=== PATIENT | female | born 1960 | race Caucasian/White ===

== ENCOUNTER 2016-10-31 19:55 | Inpatient (IN) | payer OTHER ==
[~2016-10-31] VITALS: Ht 157.5 cm; Wt 77.5 kg
[2016-10-31] MEDS ORDERED: morphine 4 MG/ML VIAL IV STA (21:32)
[2016-10-31] MEDS ORDERED: ONDANSETRON 4 MG INJ IV STA (21:32)
[2016-10-31 22:14] LABS: ADD SCAN DIFF NO
[2016-10-31 22:17] LABS: BASOPHIL # 0.1 10^3/ul (0.0-0.1); BASOPHILS % 0.6 % (0.0-2.0); EOSINOPHILS # 0.1 10^3/ul (0.0-0.5); EOSINOPHILS % 0.9 % (0.0-7.0); HEMATOCRIT 35.2 % (37.0-47.0); LYMPHOCYTES # 2.4 10^3/ul (0.8-2.9); LYMPHOCYTES % 23.9 % (15.0-51.0); MEAN CORPUSCULAR HEMOGLOBIN 27.3 pg (29.0-33.0); MEAN CORPUSCULAR HGB CONC 31.3 g/dl (32.0-37.0); MEAN CORPUSCULAR VOLUME 87.3 fl (82.0-101.0); MEAN PLATELET VOLUME 8.9 fl (7.4-10.4); MONOCYTE # 0.9 10^3/ul (0.3-0.9); MONOCYTES % 8.7 % (0.0-11.0); NEUTROPHIL # 6.6 10^3/ul (1.6-7.5); NEUTROPHILS % 65.6 % (39.0-77.0); PLATELET COUNT 413 10^3/UL (140-415); RED BLOOD COUNT 4.03 10^6/ul (4.20-5.40); RED CELL DISTRIBUTION WIDTH 15.2 % (11.5-14.5)
[2016-10-31 22:26] LABS: INR 1.06; PROTIME 13.8 Sec (12.2-14.2); PT RATIO 1.1
[2016-10-31 22:29] LABS: ALBUMIN 3.5 g/dl (3.3-4.9)
[2016-10-31 22:30] LABS: POTASSIUM 4.6 mmol/L (3.5-5.1)
[2016-10-31 22:32] LABS: ALBUMIN/GLOBULIN RATIO 0.81; BILIRUBIN,INDIRECT 0.2 mg/dl (0-1.1); BILIRUBIN,TOTAL 0.2 mg/dl (0.2-1.3); CREATININE 1.36 mg/dl (0.44-1.00); TOTAL PROTEIN 7.8 g/dl (6.1-8.1)
[2016-10-31 22:33] LABS: CALCIUM 8.9 mg/dl (8.4-10.2)
[2016-10-31] MEDS ORDERED: SPIR100T PO (22:35)
[2016-10-31] MEDS ORDERED: ATEN50TA PO (22:36)
[2016-10-31] MEDS ORDERED: HYDR12.58 PO (22:36)
[2016-10-31] MEDS ORDERED: FURO40TA4 PO (22:37)
--- NOTE | 2016-10-31 22:45 | RADRPT ---
PROCEDURE: CT abdomen and pelvis without contrast. CLINICAL INDICATION: Abdominal pain. Ascites and liver failure TECHNIQUE: CT scan of the abdomen and pelvis without contrast was performed. Sagittal and coronal reformatted images were obtained from the axial source images. CTDI = 18.93 mGy; DLP = 1068.57 mGy- cm COMPARISON: None available. FINDINGS: Visualized lower thorax: Mild bibasilar subsegmental atelectasis. Small right pleural effusion, th e left pleural space shows only trace effusion. Liver, gallbladder, pancreas and spleen: Slightly nodular contour to the liver unable to exclude ci rrhosis with normal liver size and attenuation There is no evidence for a liver mass or ductal dila tation. Findings are compatible with prior cholecystectomy. No common bile duct abnormality is dem onstrated. The pancreas is unremarkable. The spleen is normal in size. Adrenal glands and genitourinary system: The adrenal glands are normal bilaterally. The kidneys are normal and size, contour and attenuation with no evidence for masses, calculi or hydronephrosis. T he ureters are unremarkable. The urinary bladder is contracted and difficult to evaluate. The uteru s and adnexa show no abnormalities. Gastrointestinal system: The stomach is normal in caliber with no abnormality of significance. The small bowel is normal in caliber with no ileus, obstruction or wall thickening. The appendix is not visualized. The colon shows no evidence for wall thickening or acute abnormality. There is no jayne dence for colitis or diverticulitis. Peritoneum, retroperitoneum, lymph nodes and vessels: The abdominal aorta is normal in caliber. The re is moderate aortic and iliac system atherosclerotic calcification. The inferior vena cava is unr emarkable. There is no evidence for adenopathy or mass. A massive amount of abdominal and pelvic a scites is present including ascites extending through the umbilical hernia, the size of the hernia e stimated at 4 cm. There is no evidence of pneumoperitoneum. Osseous structures and musculoskeletal findings: There is no fracture, lytic or blastic lesion. Deg enerative disk disease at L4-5 and L5-S1 is present. No muscular abnormality or soft tissue patholo gy is present. RPTAT:HJJR IMPRESSION: 1. Massive amount of ascites. 2. Ascites extends into a 4 cm umbilical hernia. 3. Slightly nodular contour to the liver suggests cirrhosis. 4. Changes of prior cholecystectomy. 5. Small right and trace left pleural effusions. 6. Aortic atherosclerosis is present. Al Reina Physician Date Time Electronically viewed and signed by Al Reina, Physician on 10/31/2016 22:45 JR/
--- NOTE | 2016-10-31 23:31 | ERA ---
ER Documentation Chief Complaint Date/Time DATE: 10/31/16 TIME: 23:29 Chief Complaint abd pain and nausea, pt has ascites HPI This is a patient who comes in for ascites. Patient is "due for drainage" per family. Has had not had a drainage for a while. No fevers no chills no other current complaints. ROS All systems reviewed and are negative except as per history of present illness. Medications Home Meds Reported Medications Furosemide* (Furosemide*) 40 Mg Tablet, 80 MG PO DAILY, TAB 10/31/16 Hydrochlorothiazide* (Hydrochlorothiazide*) 12.5 Mg Tablet, 12.5 MG PO DAILY, # 30 TAB 10/31/16 Atenolol* (Atenolol*) 50 Mg Tablet, 50 MG PO DAILY, #30 TAB 10/31/16 Spironolactone* (Aldactone*) 100 Mg Tablet, 100 MG PO DAILY, #30 TAB 10/31/16 Allergies Allergies: Coded Allergies: No Known Allergy (Unverified , 10/31/16) PMhx/Soc Hx Cardiac Disorders: Yes (hypertension) Hx Miscellaneous Medical Probl: Yes (liver failure since 08/2016, umbilical hernia) Hx Alcohol Use: No Hx Substance Use: No Hx Tobacco Use: No Smoking Status: Never smoker Physical Exam Vitals Vital Signs Date Time Temp Pulse Resp B/P Pulse Ox O2 Delivery O2 Flow Rate FiO2 10/31/16 22:11 75 20 104/67 98 10/31/16 19:59 98.3 88 16 122/81 99 Physical Exam Const: [] Head: Atraumatic Eyes: Normal Conjunctiva ENT: Normal External Ears, Nose and Mouth. Neck: Full range of motion..~ No meningismus. Resp: Clear to auscultation bilaterally Cardio: Regular rate and rhythm, no murmurs Abd: Soft, non tender, non distended. Normal bowel sounds Skin: No petechiae or rashes Back: No midline or flank tenderness Ext: No cyanosis, or edema Neur: Awake and alert Psych: Normal Mood and Affect Result Diagram: 10/31/16220410/31/162204 Results 24 hrs Laboratory Tests Test 10/31/16 22:05 White Blood Count 10.010^3/ul Red Blood Count 4.0310^6/ul Hemoglobin 11.0g/dl Hematocrit 35.2% Mean Corpuscular Volume 87.3fl Mean Corpuscular Hemoglobin 27.3pg Mean Corpuscular Hemoglobin Concent 31.3g/dl Red Cell Distribution Width 15.2% Platelet Count 91455^3/UL Mean Platelet Volume 8.9fl Neutrophils % 65.6% Lymphocytes % 23.9% Monocytes % 8.7% Eosinophils % 0.9% Basophils % 0.6% Nucleated Red Blood Cells % 0.0/100WBC Neutrophils # 6.610^3/ul Lymphocytes # 2.410^3/ul Monocytes # 0.910^3/ul Eosinophils # 0.110^3/ul Basophils # 0.110^3/ul Nucleated Red Blood Cells # 0.010^3/ul Prothrombin Time 13.8Sec Prothrombin Time Ratio 1.1 INR International Normalized Ratio 1.06 Activated Partial Thromboplast Time 27.0Sec Sodium Level 134mmol/L Potassium Level 4.6mmol/L Chloride Level 97mmol/L Carbon Dioxide Level 25mmol/L Anion Gap 17 Blood Urea Nitrogen 30mg/dl Creatinine 1.36mg/dl Glucose Level 105mg/dl Calcium Level 8.9mg/dl Total Bilirubin 0.2mg/dl Direct Bilirubin 0.00mg/dl Indirect Bilirubin 0.2mg/dl Aspartate Amino Transf (AST/SGOT) 24IU/L Alanine Aminotransferase (ALT/SGPT) 17IU/L Alkaline Phosphatase 72IU/L Total Protein 7.8g/dl Albumin 3.5g/dl Globulin 4.30g/dl Albumin/Globulin Ratio 0.81 Lipase 189U/L Current Medications Medications (Trade) Dose Ordered Sig/Daryn Route PRN Reason Start Time Stop Time Status Last Admin Dose Admin Morphine Sulfate (morphine) 4 mg ONCE STAT IV 10/31/16 21:32 10/31/16 21:33 DC Ondansetron HCl (Zofran Inj) 4 mg ONCE STAT IV 10/31/16 21:32 10/31/16 21:33 DC 10/31/16 22:00 Procedures/MDM Medical decision-making: This very pleasant patient comes in essentially for tense ascites. Patient will be admitted to hospitalist. Departure Diagnosis: Primary Impression: Ascites Qualified Code: R18.8 - Other ascites MARIANN ROBLES Oct 31, 2016 23:31
[2016-11-01] VITALS (11 sets, daily range): BP systolic 82–141; BP diastolic 52–69; PULSE 65–75; RESP 18–20; Ht 157.5 cm; Wt 77.5 kg
[2016-11-01] MEDS ORDERED: ONDANSETRON 4 MG INJ IV PRN (02:30)
[2016-11-01 05:23] LABS: ADD SCAN DIFF NO
[2016-11-01] MEDS: HYDROCODONE/APAP (5/325) TAB PO PRN ×2 (05:26→21:14)
[2016-11-01 05:29] LABS: BASOPHIL # 0.1 10^3/ul (0.0-0.1); BASOPHILS % 0.7 % (0.0-2.0); EOSINOPHILS # 0.2 10^3/ul (0.0-0.5); EOSINOPHILS % 1.9 % (0.0-7.0); HEMATOCRIT 32.7 % (37.0-47.0); HEMOGLOBIN 10.2 g/dl (12.0-16.0); LYMPHOCYTES # 2.4 10^3/ul (0.8-2.9); LYMPHOCYTES % 29.8 % (15.0-51.0); MEAN CORPUSCULAR HEMOGLOBIN 27.5 pg (29.0-33.0); MEAN CORPUSCULAR HGB CONC 31.2 g/dl (32.0-37.0); MEAN CORPUSCULAR VOLUME 88.1 fl (82.0-101.0); MEAN PLATELET VOLUME 9.7 fl (7.4-10.4); MONOCYTE # 0.9 10^3/ul (0.3-0.9); MONOCYTES % 10.5 % (0.0-11.0); NEUTROPHIL # 4.6 10^3/ul (1.6-7.5); NEUTROPHILS % 56.7 % (39.0-77.0); PLATELET COUNT 297 10^3/UL (140-415); RED BLOOD COUNT 3.71 10^6/ul (4.20-5.40); RED CELL DISTRIBUTION WIDTH 15.1 % (11.5-14.5); WHITE BLOOD COUNT 8.1 10^3/ul (4.8-10.8)
[2016-11-01] MEDS: FUROSEMIDE 20 MG INJ IV SCH (05:33)
[2016-11-01 05:39] LABS: ALBUMIN 3.1 g/dl (3.3-4.9); POTASSIUM 4.5 mmol/L (3.5-5.1)
[2016-11-01 05:41] LABS: CREATININE 1.13 mg/dl (0.44-1.00)
[2016-11-01 05:42] LABS: ALBUMIN/GLOBULIN RATIO 0.68; BILIRUBIN,INDIRECT 0.3 mg/dl (0-1.1); BILIRUBIN,TOTAL 0.3 mg/dl (0.2-1.3); CALCIUM 8.5 mg/dl (8.4-10.2); TOTAL PROTEIN 7.6 g/dl (6.1-8.1)
[2016-11-01 05:43] LABS: CHOL/HDL RATIO 4.6 RATIO
[2016-11-01] MEDS: ALBUMIN HUMAN 25% 100 ML IV SCH ×2 (08:25→16:30)
--- NOTE | 2016-11-01 08:41 | HP ---
DATE OF ADMISSION: 10/31/2016 TIME SEEN: 3:30 CHIEF COMPLAINT: Abdominal distention and pain. HISTORY OF PRESENT ILLNESS: The patient is a 56-year-old female with a history of "liver disease. diagnosed just in May when the patient was in [facility], history of hypertension who presented to the emergency department with progressively worsening abdominal distention and pain. She states she was diagnosed with liver disease in [facility] in May, but she was not told what the cause of the liver failure is. She only drinks occasionally and denied a history of hepatitis. About a kpwun-ate-upry ago at [facility], the patient did have a paracentesis, but since then, her a bdomen has been progressively increasing in size and it has been affecting her sleep as well. She d enied any fever, chills, chest pain, but reported some shortness of breath. When she presented to the ER, her vitals were stable. CT abdomen and pelvis shows massive amount of ascites extending into a 4 mm umbilical hernia. Also, slightly nodular contour of the liver sugges tive of cirrhosis was noted. She was given morphine and Zofran and admitted for further evaluation. REVIEW OF SYSTEMS: A 12-point review performed, negative except as mentioned in the HPI. PAST MEDICAL HISTORY: As per HPI. PAST SURGICAL HISTORY: Cholecystectomy. SOCIAL HISTORY: Drinks alcohol occasionally, but denied a history of tobacco or illicit drug use. ALLERGIES: NO KNOWN DRUG ALLERGIES. HOME MEDICATION: 1. Atenolol. 2. Aldactone. 3. Lasix. 4. Hydrochlorothiazide. PHYSICAL EXAMINATION: VITAL SIGNS: Stable. GENERAL: The patient seems slightly uncomfortable due to abdominal distention and pain. She is ans wering questions appropriately through a inter com servicer. HEENT: No obvious head deformity. Pupils react to light. Extraocular muscles intact. CARDIOVASCULAR: Regular rate and rhythm. No extra sounds. LUNGS: Clear. ABDOMEN: Distended with positive fluid wave. EXTREMITIES: Positive for edema. LABORATORY: Hemoglobin 11. Sodium 134, creatinine 1.36, BUN 30. Otherwise CBC and BMP are within normal limits. IMAGING: CT abdomen and pelvis with results as mentioned in the HPI. IMPRESSION: 1. Decompensated liver cirrhosis, with ascites, at this point her liver failure is considered crypt ogenic. 2. History of hypertension. 3. Presumed acute kidney injury. PLAN: Immediate plan is to order a paracentesis and will send fluid for analysis including for cyto logy. She will be continued with Lasix and Aldactone, but at this point will hold Aldactone and the rest of her antihypertensives given blood pressure is on the lower side. Will also give albumin, e specially given the elevated creatinine. We will avoid nephrotoxins, and if there is no improvement in her kidney function will place a nephrology consult and obtain a renal ultrasound. Further workup and management per clinical course. Dictated By: MARIANN NEAL/STVEE Conf#: [id number] DID#: [id number]
[2016-11-01 10:34] LABS: TOTAL IRON BINDING CAPACITY 259 ug/dl (241-421)
[2016-11-01 10:41] LABS: IRON < 10 ug/dl (35-150)
[2016-11-01] MEDS ORDERED: LIDOCAINE 1% (MPF) 5 ML VIAL ONE (13:34)
--- NOTE | 2016-11-01 13:47 | PN ---
Date/Time of Note Date/Time of Note DATE: 11/01/16 TIME: 13:45 Assessment/Plan VTE Prophylaxis VTE Prophylaxis Intervention: SCD's Assessment/Plan Assessment/Plan 1. Decompensated liver cirrhosis, with ascites, at this point her liver failure is considered cryptogenic. 2. symptomatic ascites due to decompensated liver cirrhosis 2. History of hypertension. 3. Presumed acute kidney injury. PLAN: plan for paracentesis albumin prn low BP lasix 20mg IV daily will add spironolactone 25 mg po daily if Bp stable in AM Subjective 24 Hr Interval Summary Free Text/Dictation plan for paracentesis, SBP in 90s, afebrile, Exam/Review of Systems Vital Signs Vitals Vital Signs Date Time Temp Pulse Resp B/P Pulse Ox O2 Delivery O2 Flow Rate FiO2 11/01/16 12:30 68 96/60 11/01/16 08:49 97.6 18 96 11/01/16 00:37 Room Air Intake and Output 10/31/16 10/31/16 11/01/16 15:00 23:00 07:00 Intake Total 240 ml Balance 240 ml Exam uncomfortable due to ascites HEENT: No obvious head deformity. Pupils react to light. Extraocular muscles intact. CARDIOVASCULAR: Regular rate and rhythm. No extra sounds. LUNGS: Clear. ABDOMEN: Distended with positive fluid wave. EXTREMITIES: Positive for edema. Results Result Diagram: 11/01/16 0445 11/01/16 0444 Results 24 hrs Laboratory Tests Test 10/31/16 22:05 11/01/16 04:44 11/01/16 04:45 11/01/16 09:32 White Blood Count 10.0 8.1 Red Blood Count 4.03 L 3.71 L Hemoglobin 11.0 L 10.2 L Hematocrit 35.2 L 32.7 L Mean Corpuscular Volume 87.3 88.1 Mean Corpuscular Hemoglobin 27.3 L 27.5 L Mean Corpuscular Hemoglobin Concent 31.3 L 31.2 L Red Cell Distribution Width 15.2 H 15.1 H Platelet Count 413 297 # Mean Platelet Volume 8.9 9.7 Neutrophils % 65.6 56.7 Lymphocytes % 23.9 29.8 Monocytes % 8.7 10.5 Eosinophils % 0.9 1.9 Basophils % 0.6 0.7 Nucleated Red Blood Cells % 0.0 0.0 Neutrophils # 6.6 4.6 Lymphocytes # 2.4 2.4 Monocytes # 0.9 0.9 Eosinophils # 0.1 0.2 Basophils # 0.1 0.1 Nucleated Red Blood Cells # 0.0 0.0 Prothrombin Time 13.8 Prothrombin Time Ratio 1.1 INR International Normalized Ratio 1.06 Activated Partial Thromboplast Time 27.0 Sodium Level 134 L 131 L Potassium Level 4.6 4.5 Chloride Level 97 100 Carbon Dioxide Level 25 22 Anion Gap 17 H 14 Blood Urea Nitrogen 30 H 29 H Creatinine 1.36 H 1.13 H Glucose Level 105 94 Calcium Level 8.9 8.5 Total Bilirubin 0.2 0.3 Direct Bilirubin 0.00 0.00 Indirect Bilirubin 0.2 0.3 Aspartate Amino Transf (AST/SGOT) 24 27 Alanine Aminotransferase (ALT/SGPT) 17 19 Alkaline Phosphatase 72 59 Total Protein 7.8 7.6 Albumin 3.5 3.1 L Globulin 4.30 H 4.50 H Albumin/Globulin Ratio 0.81 0.68 Lipase 189 Triglycerides Level 127 Cholesterol Level 136 LDL Cholesterol, Calculated 82 HDL Cholesterol 29 L Cholesterol/HDL Ratio 4.6 Iron Level < 10 L Total Iron Binding Capacity 259 Percent Iron Saturation Ferritin 300.0 H Hepatitis B Surface Antigen NEGATIVE Hepatitis B Surface Antibody NEGATIVE Hepatitis C Antibody NEGATIVE Medications Medications Current Medications Furosemide (Lasix) 20 mg DAILY@06 IV ; Start 11/01/16 at 06:00 Acetaminophen/ Hydrocodone Bitart ([place] (5/325)) 1 tab Q6H PRN PO PAIN Last administered on 11/01/16 05:26; Admin Dose 1 TAB; Start 11/01/16 at 02:30 Ondansetron HCl 4 mg 4 mg Q6H PRN IV NAUSEA AND/OR VOMITING; Start 11/01/16 at 02:30 Albumin Human (Albumin Human 25%) 100 ml @ 100 mls/hr Q8H IV Last administered on 11/01/16 08:25; Admin Dose 100 MLS/HR; Start 11/01/16 at 07:00 ; Stop 11/01/16 at 15:59 LORI SANCHEZ MD Nov 01, 2016 13:47
--- NOTE | 2016-11-01 14:35 | RADRPT ---
PROCEDURE: Ultrasound guided paracentesis. CLINICAL INDICATION: Ascites and shortness of breath. COMPARISON: CT scan of the abdomen and pelvis dated 10/31/2016 which demonstrated a large amount o f ascites. TECHNIQUE: The risks, benefits, and alternatives were explained to the patient and/or the patient's family, inc luding but not limited to bleeding, infection, pain, visceral or vascular damage, shock, and . The patient and/or the patient's family understood the risks and the alternatives and wished to pro ceed with the procedure. Informed written consent was obtained. A procedural time out was performed . The patient's name, date of , and procedure to be performed were verified. Utilizing ultrasound guidance, optimal location for entry to the peritoneal cavity was ascertained. The overlying skin was prepped and draped in the usual sterile fashion. Approximately 10 ml of 1% Xylocaine was injected locally for pain control. Using ultrasound guidance, an 8 [place] catheter wa s introduced into the peritoneal cavity in the right lower quadrant without difficulty. FINDINGS: Initial images demonstrate ascites. Approximately 12.5 liters of serous fluid was aspirated and sen t for laboratory analysis. The patient tolerated the procedure well without complication. IMPRESSION: 1. Successful ultrasound-guided paracentesis. RPTAT: QQ .Willy Mustafa MD, Date Time Electronically viewed and signed by .Willy Mustafa MD, MD on 11/01/2016 14:34 .R/
[2016-11-01 16:44] LABS: FLUID APPEARANCE BLOODY; FLUID TYPE PARACENTHESIS
[2016-11-01 17:33] LABS: FLUID LD 1245 U/L; FLUID TOTAL PROTEIN 5.1 g/dl; FLUID TYPE PERITONEAL
[2016-11-01 20:41] LABS: FLUID WBC'S 0.715 /cmm
[2016-11-01 21:39] LABS: FLUID LYMPHOCYTES 78.7 %; FLUID MONOCYTES 11.5 %; FLUID NEUTROPHILS 9.4 %; FLUID RBC EST 2+
[2016-11-01 21:40] LABS: FLUID EOSINOPHIL 0.4 %
[2016-11-02] MEDS: FUROSEMIDE 20 MG INJ IV SCH (05:46)
[2016-11-02 06:05] LABS: ADD SCAN DIFF NO
[2016-11-02 06:12] LABS: BASOPHILS % 0.5 % (0.0-2.0); EOSINOPHILS # 0.1 10^3/ul (0.0-0.5); EOSINOPHILS % 1.3 % (0.0-7.0); HEMOGLOBIN 10.5 g/dl (12.0-16.0); LYMPHOCYTES # 1.6 10^3/ul (0.8-2.9); LYMPHOCYTES % 21.3 % (15.0-51.0); MEAN CORPUSCULAR HEMOGLOBIN 28.1 pg (29.0-33.0); MEAN CORPUSCULAR HGB CONC 31.8 g/dl (32.0-37.0); MEAN CORPUSCULAR VOLUME 88.2 fl (82.0-101.0); MONOCYTE # 0.8 10^3/ul (0.3-0.9); MONOCYTES % 10.8 % (0.0-11.0); PLATELET COUNT 361 10^3/UL (140-415); RED BLOOD COUNT 3.74 10^6/ul (4.20-5.40); WHITE BLOOD COUNT 7.7 10^3/ul (4.8-10.8)
[2016-11-02 06:21] LABS: INR 1.16; PROTIME 14.9 Sec (12.2-14.2); PT RATIO 1.2
[2016-11-02 06:22] LABS: PARTIAL THROMBOPLASTIN TIME 30.4 Sec (25.0-35.0)
[2016-11-02 06:37] LABS: POTASSIUM 4.4 mmol/L (3.5-5.1)
[2016-11-02 06:39] LABS: CREATININE 1.03 mg/dl (0.44-1.00)
[2016-11-02 06:40] LABS: CALCIUM 8.5 mg/dl (8.4-10.2)
[2016-11-02 08:03] VITALS: BP 91/51; RESP 18
[2016-11-02 11:01] VITALS: BP 100/61
[2016-11-02] MEDS: HYDROCODONE/APAP (5/325) TAB PO PRN ×2 (14:48→22:42)
--- NOTE | 2016-11-02 16:03 | PN ---
Date/Time of Note Date/Time of Note DATE: 11/02/16 TIME: 15:49 Assessment/Plan VTE Prophylaxis VTE Prophylaxis Intervention: SCD's Lines/Catheters IV Catheter Type (from Nrs): Saline Lock Assessment/Plan Assessment/Plan 1. Ascites, s/p paracentesis, follow up with cytology 2. Chronic liver disease with liver cirrhosis, unclear etiology, negative hep B and C, Ferritin 300, MRI 3. Acute renal failure, improving, follow up with BMP 4. Normocytic anemia, chronic disease related, follow up with CBC 5. h/o hypertension Exam/Review of Systems Vital Signs Vitals Vital Signs Date Time Temp Pulse Resp B/P Pulse Ox O2 Delivery O2 Flow Rate FiO2 11/02/16 11:01 100/61 11/02/16 08:03 97.8 71 18 95 11/01/16 00:37 Room Air Intake and Output 11/01/16 11/01/16 11/02/16 15:00 23:00 07:00 Intake Total 100 ml 320 ml 400 ml Output Total 1050 ml 450 ml Balance 100 ml -730 ml -50 ml Results Result Diagram: 11/02/16 0532 11/02/16 0532 Results 24 hrs Laboratory Tests Test 11/02/16 05:32 White Blood Count 7.7 Red Blood Count 3.74 L Hemoglobin 10.5 L Hematocrit 33.0 L Mean Corpuscular Volume 88.2 Mean Corpuscular Hemoglobin 28.1 L Mean Corpuscular Hemoglobin Concent 31.8 L Red Cell Distribution Width 15.0 H Platelet Count 361 # Mean Platelet Volume 9.0 Neutrophils % 66.0 Lymphocytes % 21.3 Monocytes % 10.8 Eosinophils % 1.3 Basophils % 0.5 Nucleated Red Blood Cells % 0.0 Neutrophils # 5.0 Lymphocytes # 1.6 Monocytes # 0.8 Eosinophils # 0.1 Basophils # 0.0 Nucleated Red Blood Cells # 0.0 Prothrombin Time 14.9 H Prothrombin Time Ratio 1.2 INR International Normalized Ratio 1.16 Activated Partial Thromboplast Time 30.4 Sodium Level 133 L Potassium Level 4.4 Chloride Level 99 Carbon Dioxide Level 26 Anion Gap 12 Blood Urea Nitrogen 24 H Creatinine 1.03 H Glucose Level 90 Calcium Level 8.5 Medications Medications Current Medications Furosemide (Lasix) 20 mg DAILY@06 IV ; Start 11/01/16 at 06:00 Acetaminophen/ Hydrocodone Bitart ([place] (5/325)) 1 tab Q6H PRN PO PAIN Last administered on 11/02/16 14:48; Admin Dose 1 TAB; Start 11/01/16 at 02:30 Ondansetron HCl (Zofran Inj) 4 mg Q6H PRN IV NAUSEA AND/OR VOMITING; Start at 02:30 VIVEK BHAKTA MD Nov 02, 2016 16:02
[2016-11-02 20:05] VITALS: BP 96/58; RESP 18
[2016-11-03] MEDS: FUROSEMIDE 40 MG TAB PO SCH ×2 (05:34→10:10)
[2016-11-03 05:51] LABS: ADD SCAN DIFF NO
[2016-11-03 06:05] LABS: BASOPHIL # 0.1 10^3/ul (0.0-0.1); BASOPHILS % 0.6 % (0.0-2.0); EOSINOPHILS # 0.2 10^3/ul (0.0-0.5); EOSINOPHILS % 2.7 % (0.0-7.0); HEMATOCRIT 34.6 % (37.0-47.0); HEMOGLOBIN 10.9 g/dl (12.0-16.0); LYMPHOCYTES # 2.4 10^3/ul (0.8-2.9); LYMPHOCYTES % 27.8 % (15.0-51.0); MEAN CORPUSCULAR HEMOGLOBIN 27.8 pg (29.0-33.0); MEAN CORPUSCULAR HGB CONC 31.5 g/dl (32.0-37.0); MEAN CORPUSCULAR VOLUME 88.3 fl (82.0-101.0); MEAN PLATELET VOLUME 8.9 fl (7.4-10.4); MONOCYTE # 0.9 10^3/ul (0.3-0.9); MONOCYTES % 10.8 % (0.0-11.0); NEUTROPHIL # 4.9 10^3/ul (1.6-7.5); NEUTROPHILS % 57.7 % (39.0-77.0); PLATELET COUNT 355 10^3/UL (140-415); RED BLOOD COUNT 3.92 10^6/ul (4.20-5.40); RED CELL DISTRIBUTION WIDTH 15.1 % (11.5-14.5); WHITE BLOOD COUNT 8.5 10^3/ul (4.8-10.8)
[2016-11-03 06:12] LABS: POTASSIUM 4.7 mmol/L (3.5-5.1)
[2016-11-03 06:15] LABS: CREATININE 1.14 mg/dl (0.44-1.00)
[2016-11-03 06:16] LABS: CALCIUM 8.5 mg/dl (8.4-10.2)
[2016-11-03 07:25] VITALS: BP 104/59; RESP 16
[2016-11-03] MEDS ORDERED: MAGNESIUM HYDROXIDE 30ML CUP PO ONE (08:00)
--- NOTE | 2016-11-03 09:13 | RADRPT ---
PROCEDURE: MR Abdomen. CLINICAL INDICATION: Ascites. TECHNIQUE: MRI abdomen with and without contrast was performed on the a high-resolution, high Tesl a field strength scanner. Patient was examined both before and following the uncomplicated intraven ous injection of 20 cc of intravenous Magnevist IV contrast. Images were reviewed on a high-resoluti on PACS workstation. COMPARISON: CT scan of the abdomen 10/31/2069 appear FINDINGS: MRI Abdomen: The heart is normal in size with no pericardial effusion noted. There is compressive atelectasis in the right lower lobe. There is a small right pleural effusion and a trace left pleural effusion. The liver measures 15.6 cm AP and has a micronodular border. An 11 cm AP by 2.3 cm loculated fluid collection of mixed signal intensity is identified on the late ral aspect of the right lobe of the liver which compresses the lateral border of the liver. The fluid collection extends inferiorly into the right pericolic gutter. Additional fluid is noted in the left paracolic gutter. No intrahepatic biliary ductal dilatation is identified. No hepatic mass is noted. Pre and postcontrast axial lava images were performed.. The arterial phase, the portal vein is leiva nt. No arterial phase enhancing mass is identified in the liver. No portal venous phase enhancemen t is identified in the liver. 5-minute delayed postcontrast images obtained through the liver are un remarkable. The hepatic and portal veins are patent. The gallbladder was surgically removed. The aorta and inferior vena cava are normal. The spleen is normal. The pancreas is unremarkable. The main pancreatic duct and extrahepatic common bile duct are unrema rkable.. The small bowel loops are were normal but are displaced centrally by the intra-abdominal ascites. Th ere is fecal material in the colon. There is fluid in the stomach without evidence of gastric wall thickening. No hiatal hernia is present. No abnormal enhancing areas are identified in the colon or small bowel 5 administration of contrast. There is a midline umbilical hernia which is unchanged compared to the recent CT of 10/03/2016. The bony elements are unremarkable. No enlarged mesenteric or retroperitoneal lymph nodes are identified. IMPRESSION: 1. Cirrhosis with partially loculated ascites noted adjacent to the right lobe of the liver. The am ount of ascitic fluid has diminished compared to 10/31/2016. 2. No enhancing hepatic mass is identified. 3. Small right pleural effusion with right lower lobe atelectasis. Trace left pleural effusion. 4. Small midline umbilical hernia containing ascitic fluid. 5. Status post cholecystectomy. RPTAT: [facility] Physician Claudio Date Time Electronically viewed and signed by Ken Carrasco Physician on 11/03/2016 09:13 /
[2016-11-03] MEDS: SENNA TAB PO SCH ×2 (10:05→21:00)
--- NOTE | 2016-11-03 15:26 | DS ---
Date/Time of Note Date/Time of Note DATE: 11/03/16 TIME: 15:11 Discharge Summary Admission/Discharge Info Admit Date/Time Oct 31, 2016 at 23:13 Discharge Date/Time Final Diagnosis 1. Ascites, s/p paracentesis, follow up with GI 2. Chronic liver disease with liver cirrhosis, unclear etiology, follow up with GI/hepatology 3. Acute renal failure, improving, follow up with BMP 4. Normocytic anemia, chronic disease related, follow up with PCP 5. h/o hypertension, stop HCTZ for hypotension Patient Condition: Stable Procedures [place] [address] Radiology Main Line: [phone] DIAGNOSTIC IMAGING REPORT Patient: BLANCO SIMMONS : 1960 Age: 56 Sex: F MR #: [id number] DOS: 11/02/16 0000 Ordering MD: VIVEK BHAKTA MD Location: [facility] Room/Bed: [facility] PROCEDURE: MR Abdomen. CLINICAL INDICATION: Ascites. TECHNIQUE: MRI abdomen with and without contrast was performed on the a high- resolution, high Helen field strength scanner. Patient was examined both before and following the uncomplicated intravenous injection of 20 cc of intravenous Magnevist IV contrast. Images were reviewed on a high-resolution PACS workstation. COMPARISON: CT scan of the abdomen 10/31/2069 appear FINDINGS: MRI Abdomen: The heart is normal in size with no pericardial effusion noted. There is compressive atelectasis in the right lower lobe. There is a small right pleural effusion and a trace left pleural effusion. The liver measures 15.6 cm AP and has a micronodular border. An 11 cm AP by 2.3 cm loculated fluid collection of mixed signal intensity is identified on the lateral aspect of the right lobe of the liver which compresses the lateral border of the liver. The fluid collection extends inferiorly into the right pericolic gutter. Additional fluid is noted in the left paracolic gutter. No intrahepatic biliary ductal dilatation is identified. No hepatic mass is noted. Pre and postcontrast axial lava images were performed.. The arterial phase, the portal vein is patent. No arterial phase enhancing mass is identified in the liver. No portal venous phase enhancement is identified in the liver. 5- minute delayed postcontrast images obtained through the liver are unremarkable. The hepatic and portal veins are patent. The gallbladder was surgically removed. The aorta and inferior vena cava are normal. The spleen is normal. The pancreas is unremarkable. The main pancreatic duct and extrahepatic common bile duct are unremarkable.. The small bowel loops are were normal but are displaced centrally by the intra- abdominal ascites. There is fecal material in the colon. There is fluid in the stomach without evidence of gastric wall thickening. No hiatal hernia is present. No abnormal enhancing areas are identified in the colon or small bowel 5 administration of contrast. There is a midline umbilical hernia which is unchanged compared to the recent CT of 10/03/2016. The bony elements are unremarkable. No enlarged mesenteric or retroperitoneal lymph nodes are identified. IMPRESSION: 1. Cirrhosis with partially loculated ascites noted adjacent to the right lobe of the liver. The amount of ascitic fluid has diminished compared to 10/31/2016. 2. No enhancing hepatic mass is identified. 3. Small right pleural effusion with right lower lobe atelectasis. Trace left pleural effusion. 4. Small midline umbilical hernia containing ascitic fluid. 5. Status post cholecystectomy. RPTAT: [facility] Physician Claudio Date Time Electronically viewed and signed by Ken Carrasco Physician on 11/03/2016 09:13 JM/ CC: VIVEK BHAKTA MD Hospital Course 56 years old female with liver cirrhosis with ascites came in with large ascites. She got paracentesis on 11/01/2016 with removal of 12.9 liters of fluid. Fluid is bloody, LDH 1245, protein 5.1. WBC 0.715, L 78.7%. culture and cytology are still pending. Hepatitis B and C are both negative, ferritin 300. MRI of abdomen with liver cirrhosis and ascites but no liver mass. Home Meds Reported Medications Furosemide* (Furosemide*) 40 Mg Tablet, 80 MG PO DAILY, TAB 10/31/16 Atenolol* (Atenolol*) 50 Mg Tablet, 50 MG PO DAILY, #30 TAB 10/31/16 Spironolactone* (Aldactone*) 100 Mg Tablet, 100 MG PO DAILY, #30 TAB 10/31/16 Discontinued Reported Medications Hydrochlorothiazide* (Hydrochlorothiazide*) 12.5 Mg Tablet, 12.5 MG PO DAILY, # 30 TAB 10/31/16 Follow-up Plan follow up with PCP and GI/hepatology in 1 week Pending Labs Laboratory Tests Test 11/03/16 05:15 White Blood Count 8.510^3/ul (4.8-10.8) Red Blood Count 3.9210^6/ul (4.20-5.40) Hemoglobin 10.9g/dl (12.0-16.0) Hematocrit 34.6% (37.0-47.0) Mean Corpuscular Volume 88.3fl (82.0-101.0) Mean Corpuscular Hemoglobin 27.8pg (29.0-33.0) Mean Corpuscular Hemoglobin Concent 31.5g/dl (32.0-37.0) Red Cell Distribution Width 15.1% (11.5-14.5) Platelet Count 61050^3/UL (140-415) Mean Platelet Volume 8.9fl (7.4-10.4) Neutrophils % 57.7% (39.0-77.0) Lymphocytes % 27.8% (15.0-51.0) Monocytes % 10.8% (0.0-11.0) Eosinophils % 2.7% (0.0-7.0) Basophils % 0.6% (0.0-2.0) Nucleated Red Blood Cells % 0.0/100WBC (0.0-0.0) Neutrophils # 4.910^3/ul (1.6-7.5) Lymphocytes # 2.410^3/ul (0.8-2.9) Monocytes # 0.910^3/ul (0.3-0.9) Eosinophils # 0.210^3/ul (0.0-0.5) Basophils # 0.110^3/ul (0.0-0.1) Nucleated Red Blood Cells # 0.010^3/ul (0.0-0.0) Sodium Level 131mmol/L (135-144) Potassium Level 4.7mmol/L (3.5-5.1) Chloride Level 97mmol/L (97-110) Carbon Dioxide Level 28mmol/L (21-31) Anion Gap 11 (8-16) Blood Urea Nitrogen 25mg/dl (7-20) Creatinine 1.14mg/dl (0.44-1.00) Glucose Level 99mg/dl (70-220) Calcium Level 8.5mg/dl (8.4-10.2) VIVEK BHAKTA MD Nov 03, 2016 15:22
--- NOTE | 2016-11-07 17:51 | QN ---
Documentation Comment I was called by the pathologist because of malignant cells noted in ascitic fluid. I have notified the patient to return to the emergency room for either readmission for further workup and connection to oncologist or if she can be seen in the ER by a case reviewer and mental health social worker and outpatient follow-up arranged with Dr. Emma Gonzalez. I have spoken with Dr. Gonzalez and she is happy to see the patient. Patient will come to ER tomorrow evening. Patient was not notified about presence of malignant cells. She was just asked to come back to ER for abnormal labs. JYOTHI BENAVIDES. Nov 07, 2016 17:51
== END 2016-11-03 22:03 | disposition home or self-care (01) | DRG 442 ==
LOC: E/R 19:55 → PP2 23:13
PROVIDERS: ADMIT Internal Medicine; ATTEND Internal Medicine
PROC: 0W9G3ZZ Drainage of Peritoneal Cavity, Percutaneous Approach (ICD-10-PCS; principal; 2016-11-01)
DX: K72.90 Hepatic failure, unspecified without coma (principal); N17.9 Acute kidney failure, unspecified; R18.8 Other ascites; E87.1 Hypo-osmolality and hyponatremia; I11.0 Hypertensive heart disease with heart failure; I50.9 Heart failure, unspecified; K74.69 Other cirrhosis of liver; D63.8 Anemia in other chronic diseases classified elsewhere
CPT/HCPCS: 36415; 74176; 74182; 80048; 80053; 80061; 82042; 82728; 83540; 83615; 83690; 84157; 85025; 85610; 85730; 86706; 86803; 87070; 87102; 87116; 87340; 88104; 88305; 88313; 89050; 96374; J1940; J2270; J2405; P9047

== ENCOUNTER 2016-11-08 18:09 | Inpatient (IN) | payer OTHER ==
[~2016-11-08] VITALS: Ht 157.5 cm; Wt 68.5 kg
[~2016-11-08 18:09] MED LIST: ATEN50TA PO; FURO40TA4 PO; SPIR100T PO
--- NOTE | 2016-11-08 22:29 | ERA ---
ER Documentation Chief Complaint Date/Time DATE: 11/08/16 TIME: 22:28 Chief Complaint abdominal pain was just discharged from [facility] HPI The patient is a 56-year-old female, presenting to the ER because she was called back by the hospitalist because of malignant cells in the ascites fluid that was removed on November 01, 2016. She was admitted for new onset ascites and had 12.5 L removed. She complains of intermittent abdominal pain for the last 3 days, associated with constipation and tiredness. She denies fever, chills, neck pain, chest pain, dyspnea, vomiting, dysuria. She does not smoke nor drink Past medical history: Hypertension, cirrhosis, anemia, history of acute kidney injury Past surgical history: Cholecystectomy, tubal ligation ROS All systems reviewed and are negative except as per history of present illness. Medications Home Meds Reported Medications Furosemide* (Furosemide*) 40 Mg Tablet, 80 MG PO DAILY, TAB 10/31/16 Atenolol* (Atenolol*) 50 Mg Tablet, 50 MG PO DAILY, #30 TAB 10/31/16 Spironolactone* (Aldactone*) 100 Mg Tablet, 100 MG PO DAILY, #30 TAB 10/31/16 Discontinued Reported Medications Hydrochlorothiazide* (Hydrochlorothiazide*) 12.5 Mg Tablet, 12.5 MG PO DAILY, # 30 TAB 10/31/16 Allergies Allergies: Coded Allergies: No Known Allergy (Unverified , 10/31/16) PMhx/Soc History of Surgery: Yes (cholecystectomy (2007), tubal ligation) Anesthesia Reaction: No Hx Neurological Disorder: No Hx Respiratory Disorders: No Hx Cardiac Disorders: Yes (HTN) Hx Psychiatric Problems: No Hx Miscellaneous Medical Probl: No Hx Alcohol Use: No Hx Substance Use: No Hx Tobacco Use: No Physical Exam Vitals Vital Signs Date Time Temp Pulse Resp B/P Pulse Ox O2 Delivery O2 Flow Rate FiO2 11/08/16 22:55 70 18 98/71 11/08/16 18:12 98.3 81 20 102/59 100 Physical Exam Const: No acute distress. Head: Atraumatic. Eyes: Normal Conjunctiva. ENT: Normal External Ears, Nose and Mouth. Neck: Full range of motion. No meningismus. Resp: Clear to auscultation bilaterally. Cardio: Regular rate and rhythm, no murmurs. Abd: Soft, non distended, normal bowel sounds, vague and diffuse abdominal discomfort, no rigidity, rebound, CVA tenderness Skin: No petechiae or rashes. Back: No midline or flank tenderness. Ext: No cyanosis, or edema. Neur: Awake and alert. No focal deficit Psych: Normal Mood and Affect. Result Diagram: 11/08/16 2253 11/08/163 Results 24 hrs Laboratory Tests Test 11/08/16 22:53 11/08/16 22:55 White Blood Count 10.810^3/ul Red Blood Count 4.1710^6/ul Hemoglobin 11.6g/dl Hematocrit 35.8% Mean Corpuscular Volume 85.9fl Mean Corpuscular Hemoglobin 27.8pg Mean Corpuscular Hemoglobin Concent 32.4g/dl Red Cell Distribution Width 15.2% Platelet Count 75606^3/UL Mean Platelet Volume 9.2fl Neutrophils % 61.1% Lymphocytes % 27.6% Monocytes % 8.8% Eosinophils % 1.4% Basophils % 0.6% Nucleated Red Blood Cells % 0.0/100WBC Neutrophils # 6.610^3/ul Lymphocytes # 3.010^3/ul Monocytes # 1.010^3/ul Eosinophils # 0.210^3/ul Basophils # 0.110^3/ul Nucleated Red Blood Cells # 0.010^3/ul Sodium Level 130mmol/L Potassium Level 5.1mmol/L Chloride Level 94mmol/L Carbon Dioxide Level 26mmol/L Anion Gap 15 Blood Urea Nitrogen 41mg/dl Creatinine 1.40mg/dl Glucose Level 110mg/dl Calcium Level 8.9mg/dl Total Bilirubin 0.1mg/dl Direct Bilirubin 0.00mg/dl Indirect Bilirubin 0.1mg/dl Aspartate Amino Transf (AST/SGOT) 33IU/L Alanine Aminotransferase (ALT/SGPT) 16IU/L Alkaline Phosphatase 69IU/L Total Protein 7.8g/dl Albumin 3.7g/dl Globulin 4.10g/dl Albumin/Globulin Ratio 0.90 Lipase 351U/L Bedside Urine pH (LAB) 5.0 Bedside Urine Protein (LAB) Negative Bedside Urine Glucose (UA) Negative Bedside Urine Ketones (LAB) Negative Bedside Urine Blood Negative Bedside Urine Nitrite (LAB) Negative Bedside Urine Leukocyte Esterase (L Trace Current Medications Medications (Trade) Dose Ordered Sig/Daryn Route PRN Reason Start Time Stop Time Status Last Admin Dose Admin Sodium Chloride (NS) 250 ml @ 250 mls/hr Q1H ONCE IV 11/09/16 00:00 11/09/16 00:59 DC 11/09/16 00:41 Acetaminophen/ Hydrocodone Bitart ([place] (5/325)) 1 tab ONCE ONCE PO 11/09/16 00:00 11/09/16 00:01 DC 11/09/16 00:42 Ondansetron HCl (Zofran Inj) 4 mg ONCE STAT IV 11/08/16 23:46 11/08/16 23:49 DC 11/09/16 00:41 Bisacodyl (Dulcolax Supp) 10 mg ONCE ONCE NH 11/09/16 00:00 11/09/16 00:01 DC 11/09/16 00:42 Atenolol (Tenormin) 50 mg DAILY PO 11/09/16 09:00 Furosemide (Lasix) 80 mg DAILY@06 PO 11/09/16 06:00 Spironolactone (Aldactone) 100 mg DAILY PO 11/09/16 09:00 IV Flush (NS 3 ml) 3 ml PER PROTOCOL IV 11/09/16 02:00 Ondansetron HCl (Zofran Tab) 4 mg Q6H PRN PO NAUSEA AND/OR VOMITING 11/09/16 02:00 UNV Metoclopramide HCl (Reglan) 10 mg Q6H PRN IV NAUSEA AND/OR VOMITING 11/09/16 02:00 Acetaminophen (Tylenol Tab) 650 mg Q6H PRN PO PAIN LEVEL 1-3 OR FEVER 11/09/16 02:00 Acetaminophen/ Hydrocodone Bitart ([place] (5/325)) 1 tab Q6H PRN PO MODERATE PAIN LEVEL 4-6 11/09/16 02:00 Acetaminophen/ Hydrocodone Bitart ([place] (5/325)) 2 tab Q6H PRN PO SEVERE PAIN LEVEL 7-10 11/09/16 02:00 Famotidine (Pepcid) 20 mg DAILY PO 11/09/16 09:00 [facility] [place] [id number] Radiology Main Line: [phone] DIAGNOSTIC IMAGING REPORT Patient: BLANCO SIMMONS DOB: 1960 Age: 56 Sex: F MR #: [id number] DOS: 11/08/16 2241 Ordering MD: CANDIDO REEVES MD Location: E/R Room/Bed: PROCEDURE: Portable chest x-ray. CLINICAL INDICATION: Abdominal pain. TECHNIQUE: Portable AP view of the chest. COMPARISON: None. FINDINGS: No pulmonary edema or conolidation is identified. The cardiac silhouette is magnified. No pleural effusion is seen. There is no pneumothorax. There is no pneumoperitoneum. IMPRESSION: 1. No evidence of acute cardiopulmonary disease. 2. No pneumoperitoneum. RPTAT: HTAR .Rufus Cunningham MD, Date Time Electronically viewed and signed by .Rufus Cunningham MD, on 11/08/2016 23:24 .R/ CC: CANDIDO REEVES MD MEDICAL MAKING DECISION: The patient is a 56-year-old female, presenting with malignant cell form ascites fluid, acute kidney injury, acute dehydration. She was treated with with normal saline 250 mL for acute dehydration, Zofran 4 mg IV for nausea and Dulcolax suppository for constipation. The differential diagnoses considered include but are not limited to intra-abdominal carcinoma, cholelithiasis, cholecystitis, cystitis, pancreatitis, hepatitis, gastritis, peptic ulcer disease, gastric ulcer, appendicitis, diverticulitis, cholangitis, choledocholithiasis, partial small bowel obstruction. Departure Diagnosis: Primary Impression: Ascites, malignant Additional Impressions: Acute kidney injury Anemia Condition: Stable Comments I discussed the findings with the patient. I discussed the patient with the on- call hospitalist Dr. Alegria who was made aware of the lab, the treatment, the patient condition. The patient is admitted to medical surgery bed at 1250am CANDIDO REEVES MD Nov 08, 2016 22:29
[2016-11-08 22:56] LABS: URINE BLOOD (Dip) POC Negative (NEGATIVE)
[2016-11-08 22:57] LABS: ADD SCAN DIFF NO
[2016-11-08 23:00] LABS: BASOPHIL # 0.1 10^3/ul (0.0-0.1); BASOPHILS % 0.6 % (0.0-2.0); EOSINOPHILS # 0.2 10^3/ul (0.0-0.5); EOSINOPHILS % 1.4 % (0.0-7.0); HEMATOCRIT 35.8 % (37.0-47.0); HEMOGLOBIN 11.6 g/dl (12.0-16.0); LYMPHOCYTES % 27.6 % (15.0-51.0); MEAN CORPUSCULAR HEMOGLOBIN 27.8 pg (29.0-33.0); MEAN CORPUSCULAR HGB CONC 32.4 g/dl (32.0-37.0); MEAN CORPUSCULAR VOLUME 85.9 fl (82.0-101.0); MEAN PLATELET VOLUME 9.2 fl (7.4-10.4); MONOCYTES % 8.8 % (0.0-11.0); NEUTROPHIL # 6.6 10^3/ul (1.6-7.5); NEUTROPHILS % 61.1 % (39.0-77.0); PLATELET COUNT 344 10^3/UL (140-415); RED BLOOD COUNT 4.17 10^6/ul (4.20-5.40); RED CELL DISTRIBUTION WIDTH 15.2 % (11.5-14.5); WHITE BLOOD COUNT 10.8 10^3/ul (4.8-10.8)
[2016-11-08 23:11] LABS: ALBUMIN 3.7 g/dl (3.3-4.9)
[2016-11-08 23:12] LABS: POTASSIUM 5.1 mmol/L (3.5-5.1)
[2016-11-08 23:14] LABS: BILIRUBIN,INDIRECT 0.1 mg/dl (0-1.1); BILIRUBIN,TOTAL 0.1 mg/dl (0.2-1.3); CREATININE 1.4 mg/dl (0.44-1.00)
[2016-11-08 23:15] LABS: ALBUMIN/GLOBULIN RATIO 0.9; CALCIUM 8.9 mg/dl (8.4-10.2); TOTAL PROTEIN 7.8 g/dl (6.1-8.1)
--- NOTE | 2016-11-08 23:24 | RADRPT ---
PROCEDURE: Portable chest x-ray. CLINICAL INDICATION: Abdominal pain. TECHNIQUE: Portable AP view of the chest. COMPARISON: None. FINDINGS: No pulmonary edema or conolidation is identified. The cardiac silhouette is magnified. No pleural effusion is seen. There is no pneumothorax. There is no pneumoperitoneum. IMPRESSION: 1. No evidence of acute cardiopulmonary disease. 2. No pneumoperitoneum. RPTAT: HTAR .Rufus Cunningham MD, MD Date Time Electronically viewed and signed by .Rufus Cunningham MD, on 11/08/2016 23:24 .R/
[2016-11-08] MEDS ORDERED: ONDANSETRON 4 MG INJ IV STA (23:46)
[2016-11-09] MEDS ORDERED: BISACODYL 10 MG SUPP PR ONE
[2016-11-09] MEDS ORDERED: HYDROCODONE/APAP (5/325) TAB PO ONE
[2016-11-09] MEDS ORDERED: SOD CHLORIDE 0.9% 250 ML IV ONE
--- NOTE | 2016-11-09 01:11 | HP ---
Date/Time of Note Date/Time of Note DATE: 11/09/16 TIME: 01:10 Assessment/Plan VTE Prophylaxis VTE Prophylaxis Intervention: ambulation Assessment/Plan Assessment/Plan 1) Abnormal Paracentesis Fluid Cytology - Malignant Cells found - Admit to Med Surg - Regular Diet - Activity as tolerated - Oncology visit to be arranged, either in-house or outpatient - Pain control, if needed 2) Elevated Lipase - Repeat in 12 hours from first 3) Hyponatremia - stable - Monitor NOTE: I did discuss with patient and her family the findings of malignant cells and let them know that additional work-up and evaluation is necessary prior to making a complete diagnosis and designing a plan. Their questions were asked and answered to the best of my ability.. HPI/ROS Admit Date/Time Admit Date/Time 11/08/16 Hx of Present Illness Patient returned to the ER about 6 pm today after getting a call from Dr. Kaiser to return because of an abnormality in the fluid that was taken off when she had a paracentesis about 5 days ago. She mentions some abdominal pain, but otherwise, no specific symptoms. I reviewed the records and see that Dr. Kaiser called her on November 07 to have her return the next evening, either for admit or to have a Hem-Onc appointment put in place with the help of a Vest Maker and Chief Of Party in the ER. Since it is so late, I will admit her. The fluid came back POSITIVE for MALIGNANT cells. ROS General: Admits: Denies: Fever, Chills, Poor Appetite, Generalized Body Aches Eyes: Admits: Denies: Blurry Vision, Double Vision HENT: Admits: Denies: Ear Pain/Pressure, Runny/Stuffy Nose, Sore Throat Cardiovascular: Admits: Denies: Chest Pain, Palpitations, Leg Swelling Pulmonary: Admits: Denies: Cough, Wheeze, Shortness of Breath Gastrointestinal: Admits: Abdominal Pain Denies: Nausea, Vomiting, Diarrhea, Blood in Stool, Black-Colored Stool Urogenital: Admits: Denies: Burning with Urination, Urinary Frequency, Blood in Urine Musculoskeletal: Admits: Denies: Joint Pain, Joint Swelling, Muscle Pain Neurological: Admits: Denies: Headache, Dizziness, Numbness, Tingling, Shooting Pains Integumentary: Admits: Denies: Rash, Itch PMH/Family/Social Past Medical History HTN; Cirrhosis; Decompensated Cirrhosis with Ascites Past Surgical History cholecystectomy (2008), tubal ligation Social History Alcohol Use: none Smoking Status: Never smoker Drug Use: none Exam/Review of Systems Vital Signs Vitals Vital Signs Date Time Temp Pulse Resp B/P Pulse Ox O2 Delivery O2 Flow Rate FiO2 11/08/16 22:55 70 18 98/71 11/08/16 18:12 98.3 100 Exam Exam General: Slovenian Speaking female lying on the gurney, alert and oriented in NAD , accompanied by her and daughter Eyes: Sclera White, EOMI HENT: Normocephalic/Atraumatic, External Ears/Nose Normal, Moist Mucus Membranes Neck: Supple, Trachea Midline Cardiovascular: Normal Rate, Normal Rhythm, Normal S1 and S2, No Murmur, No Extra Sounds Pulmonary: Clear to Auscultation Bilaterally, Normal Respiratory Effort, No Rales, Rhonchi or Wheezes Gastrointestinal: Normoactive Bowel Sounds, Soft, Mild Tenderness. No Guarding or Rebound. Non-Distended, No Hepatosplenomegaly Appreciated, No Pulsatile Masses Urogenital: Deferred Musculoskeletal: Normal Muscle Bulk and Tone Neurological: CN II - XII Grossly Intact, Non-Focal, Speech Normal Integumentary: Normal Moisture and Temperature, Good Turgor, No Jaundice, No Rash Lymphatic: No Cervical Lymphadenopathy Psychiatric: Appropriate Mood and Affect, Good Eye Contact Labs Result Diagram: 11/08/16225211/08/163 Medications Medications Home Meds Reported Medications Furosemide* (Furosemide*) 40 Mg Tablet, 80 MG PO DAILY, TAB 10/31/16 Atenolol* (Atenolol*) 50 Mg Tablet, 50 MG PO DAILY, #30 TAB 10/31/16 Spironolactone* (Aldactone*) 100 Mg Tablet, 100 MG PO DAILY, #30 TAB 10/31/16 Discontinued Reported Medications Hydrochlorothiazide* (Hydrochlorothiazide*) 12.5 Mg Tablet, 12.5 MG PO DAILY, # 30 TAB 10/31/16 Procedures Procedures All Available Labs are reviewed: Unremarkable. PROCEDURE: Portable chest x-ray. CLINICAL INDICATION: Abdominal pain. TECHNIQUE: Portable AP view of the chest. COMPARISON: None. FINDINGS: No pulmonary edema or consolidation is identified. The cardiac silhouette is magnified. No pleural effusion is seen. There is no pneumothorax. There is no pneumoperitoneum. IMPRESSION: 1. No evidence of acute cardiopulmonary disease. 2. No pneumoperitoneum. MORENA MALIN DO Nov 09, 2016 01:11
[2016-11-09] MEDS ORDERED: ACETAMINOPHEN 325 MG TAB PO PRN (02:00)
[2016-11-09] MEDS ORDERED: ONDANSETRON 4 MG TAB PO PRN (02:00)
[2016-11-09] MEDS ORDERED: METOCLOPRAMIDE 10 MG INJ IV PRN (02:00)
[2016-11-09] MEDS ORDERED: NACL 0.9% 3 ML SYG IV SCH (02:00)
[2016-11-09] MEDS: FUROSEMIDE 40 MG TAB PO SCH (05:50)
[2016-11-09] MEDS: FAMOTIDINE 20 MG TAB PO SCH (08:10)
[2016-11-09] MEDS: SPIRONOLACTONE 50 MG TAB PO SCH (08:10)
[2016-11-09] MEDS: ATENOLOL 50 MG TAB PO SCH (08:11)
--- NOTE | 2016-11-09 08:31 | CONS ---
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 -at this time patient needs follow up with [facility] as she will likely need optimal debulking surgery followed by chemotherapy -will consult Dr. Garcia -CA 125 ordered now -f/u final cytology results -pt to have repeat paracentesis today for her abdominal distension Problems: Consultation Date/Type/Reason Admit Date/Time 11/08/16 Date of Consultation: Nov 09, 2016 Type of Consultation: oncology Reason for Consultation malignant ascites Referring Provider: JYOTHI BENAVIDES of Present Illness 56-year-old female who first presented at the end of October to [facility] with massive ascites. Pt was told he had a history of liver disease that was diagnosed in [facility] in May 2016. with a history of "liver disease. At that time CT A/ P was done which demonstrated massive ascites as well as a cirrhotic liver. An MRI of the abdomen was done which demonstrated cirrhosis with partially loculated ascites noted adjacent to the right lobe of the liver. No obvious mass was noted. On 11/01/16 a paracentesis was done and the cells were suspicious for malignant cytology. Also seen was a small right pleural effusion with right lower lobe atelectasis as well as trace left pleural effusion.She still endorses abdominal pain but denies any shortness of breath. Per pathology cytology is consistent with a primary peritoneal cancer vs ovarian primary Constitutional: no complaints Eyes: no complaints ENT: no complaints Respiratory: no complaints Cardiovascular: no complaints Gastrointestinal: decreased appetite, nausea Genitourinary: no complaints Musculoskeletal: no complaints Skin: no complaints Neurologic: no complaints Past Medical History HTN; Cirrhosis; Decompensated Cirrhosis with Ascites Past Surgical History cholecystectomy (2007), tubal ligation Family History Significant Family History: no pertinent family hx Social History Alcohol Use: none Smoking Status: Never smoker Drug Use: none Exam/Review of Systems Vital Signs Vitals Vital Signs Date Time Temp Pulse Resp B/P Pulse Ox O2 Delivery O2 Flow Rate FiO2 11/09/16 07:26 56 18 84/62 97 Room Air 11/08/16 18:12 98.3 Exam Constitutional: alert, oriented Psych: no complaints Head: atraumatic, normocephalic Eyes: nl conjunctiva ENMT: nl external ears & nose Neck: supple Respiratory: clear to auscultation, normal air movement Cardiovascular: regular rate and rhythm Gastrointestinal: ascites, soft Musculoskeletal: nl extremities to inspection, nl gait and stance Extremities: normal pulses Results Result Diagram: 11/08/16225211/08/162252 Results 24 hrs Laboratory Tests Test 11/08/16 22:53 11/08/16 22:55 White Blood Count 10.8 # Red Blood Count 4.17 L Hemoglobin 11.6 L Hematocrit 35.8 L Mean Corpuscular Volume 85.9 Mean Corpuscular Hemoglobin 27.8 L Mean Corpuscular Hemoglobin Concent 32.4 Red Cell Distribution Width 15.2 H Platelet Count 344 Mean Platelet Volume 9.2 Neutrophils % 61.1 Lymphocytes % 27.6 Monocytes % 8.8 Eosinophils % 1.4 Basophils % 0.6 Nucleated Red Blood Cells % 0.0 Neutrophils # 6.6 Lymphocytes # 3.0 H Monocytes # 1.0 H Eosinophils # 0.2 Basophils # 0.1 Nucleated Red Blood Cells # 0.0 Sodium Level 130 L Potassium Level 5.1 Chloride Level 94 L Carbon Dioxide Level 26 Anion Gap 15 Blood Urea Nitrogen 41 H Creatinine 1.40 H Glucose Level 110 Calcium Level 8.9 Total Bilirubin 0.1 L Direct Bilirubin 0.00 Indirect Bilirubin 0.1 Aspartate Amino Transf (AST/SGOT) 33 Alanine Aminotransferase (ALT/SGPT) 16 Alkaline Phosphatase 69 Total Protein 7.8 Albumin 3.7 Globulin 4.10 H Albumin/Globulin Ratio 0.90 Lipase 351 H Bedside Urine pH (LAB) 5.0 Bedside Urine Protein (LAB) Negative Bedside Urine Glucose (UA) Negative Bedside Urine Ketones (LAB) Negative Bedside Urine Blood Negative Bedside Urine Nitrite (LAB) Negative Bedside Urine Leukocyte Esterase (L Trace H Medications Medications Current Medications Atenolol (Tenormin) 50 mg DAILY PO ; Start 11/09/16 at 09:00 Furosemide (Lasix) 80 mg DAILY@06 PO ; Start 11/09/16 at 06:00 Spironolactone (Aldactone) 100 mg DAILY PO Last administered on 11/09/16t 08:10 ; Admin Dose 100 MG; Start 11/09/16 at 09:00 Ondansetron HCl (Zofran Tab) 4 mg Q6H PRN PO NAUSEA AND/OR VOMITING; Start 11/09 at 02:00 Metoclopramide HCl (Reglan) 10 mg Q6H PRN IV NAUSEA AND/OR VOMITING; Start 11/09 at 02:00 Acetaminophen (Tylenol Tab) 650 mg Q6H PRN PO PAIN LEVEL 1-3 OR FEVER; Start at 02:00 Acetaminophen/ Hydrocodone Bitart ([place] (5/325)) 1 tab Q6H PRN PO MODERATE PAIN LEVEL 4-6; Start 11/09/16 at 02:00 Acetaminophen/ Hydrocodone Bitart ([place] (5/325)) 2 tab Q6H PRN PO SEVERE PAIN LEVEL 7-10; Start 11/09/16 at 02:00 Famotidine (Pepcid) 20 mg DAILY PO Last administered on 11/09/16 08:10; Admin Dose 20 MG; Start 11/09/16 at 09:00 FLORINDA COATES M.D. Nov 09, 2016 08:27
[2016-11-09 11:15] VITALS: BP 89/52; PULSE 63; RESP 18; Ht 157.5 cm; Wt 68.5 kg
--- NOTE | 2016-11-09 15:37 | QN ---
Documentation Comment Patient still c/o difuuse abd pain will order paracentesis and fluid analysis to r/o SBP. JYOTHI BENAVIDES Nov 09, 2016 15:37
[2016-11-09 16:02] LABS: INR 0.98
[2016-11-09 16:30] VITALS: BP 92/58; PULSE 63; RESP 18
[2016-11-09 21:00] VITALS: BP 93/53; RESP 19
[2016-11-10] MEDS: FUROSEMIDE 40 MG TAB PO SCH (06:00)
[2016-11-10 06:10] VITALS: BP 91/55; PULSE 65
[2016-11-10 07:32] VITALS: BP 95/60; RESP 20
[2016-11-10] MEDS: SPIRONOLACTONE 50 MG TAB PO SCH (08:54)
[2016-11-10] MEDS: FAMOTIDINE 20 MG TAB PO SCH (08:54)
[2016-11-10] MEDS: ATENOLOL 50 MG TAB PO SCH (08:54)
[2016-11-10] MEDS ORDERED: LIDOCAINE 1% (MPF) 5 ML VIAL ONE (11:38)
[2016-11-10 14:37] LABS: FLUID APPEARANCE BLOODY
[2016-11-10 14:38] LABS: FLUID LYMPHOCYTES 81 %; FLUID MONOCYTES 10 %; FLUID NEUTROPHILS 9 %; FLUID WBC'S 746 /cmm
[2016-11-10] MEDS: HYDROCODONE/APAP (5/325) TAB PO PRN (14:55)
[2016-11-10 14:57] VITALS: BP 87/51; PULSE 70
[2016-11-10] MEDS ORDERED: SOD CHLORIDE 0.9% 250 ML IV PRN (15:00)
--- NOTE | 2016-11-10 15:28 | RADRPT ---
PROCEDURE: Ultrasound guided paracentesis. CLINICAL INDICATION: Ascites and shortness of breath. COMPARISON: 11/01/2016. TECHNIQUE: The risks, benefits, and alternatives were explained to the patient and/or the patient's family, inc luding but not limited to bleeding, infection, pain, visceral or vascular damage, shock, and . The patient and/or the patient's family understood the risks and the alternatives and wished to pro ceed with the procedure. Informed written consent was obtained. A procedural time out was performed . The patient's name, date of , and procedure to be performed were verified. Utilizing ultrasound guidance, optimal location for entry to the peritoneal cavity was ascertained. The overlying skin was prepped and draped in the usual sterile fashion. Approximately 10 ml of 1% Xylocaine was injected locally for pain control. Using ultrasound guidance, an 8 Nigerien catheter wa s introduced into the peritoneal cavity in the right lower quadrant without difficulty. FINDINGS: Initial images demonstrate ascites. Approximately 4.9 liters of serous fluid was aspirated and sent for laboratory analysis. The patient tolerated the procedure well without complication. IMPRESSION: 1. Successful ultrasound-guided paracentesis. RPTAT: QQ .Willy Mustafa MD, Date Time Electronically viewed and signed by .Willy Mustafa MD, on 11/10/2016 15:28 .R/
--- NOTE | 2016-11-10 15:59 | PN ---
Date/Time of Note Date/Time of Note DATE: 11/10/16 TIME: 15:39 Assessment/Plan VTE Prophylaxis VTE Prophylaxis Intervention: SCD's Lines/Catheters IV Catheter Type (from Nrs): Saline Lock Urinary Cath still in place: No Assessment/Plan Assessment/Plan 1. Abd pain 2. Newly diagnosed Malignancy of Ovarian or peritoneal origin 3. Hypochromic anemia 4. CKD r/o diuretic induced renal insufficiency 5. Mild Pancreatitis PLAN: re: cancer: Dr mcgill to review patient for surgery re: abd pain : change to CLD / send peritoneal fluid for cultures / will start empiric abx for SBP in the interim / lipase levels re: hypotension: hold diuretics and antihypertensives for low BP, gentle hydration if hypotension worsens Continue supportive care. Subjective 24 Hr Interval Summary Gastrointestinal: nausea, pain Exam/Review of Systems Vital Signs Vitals Vital Signs Date Time Temp Pulse Resp B/P Pulse Ox O2 Delivery O2 Flow Rate FiO2 11/10/16 14:57 70 87/51 11/10/16 07:32 97.8 20 97 11/09/16 16:30 Room Air Intake and Output 11/09/16 11/09/16 11/10/16 15:00 23:00 07:00 Intake Total 480 ml Balance 480 ml Exam Constitutional: alert, oriented Psych: anxiety Head: atraumatic, normocephalic Eyes: PERRL ENMT: mucosa pink and moist Neck: supple Respiratory: clear to auscultation, normal air movement Cardiovascular: regular rate and rhythm Gastrointestinal: bowel sounds, soft, tender, No distended Neurological: nl mental status Results Result Diagram: 11/08/16 2253 11/08/162252 Results 24 hrs Laboratory Tests Test 11/09/16 15:40 11/10/16 11:35 Prothrombin Time 13.0 Prothrombin Time Ratio 1.0 INR International Normalized Ratio 0.98 Body Fluid Type PLEURAL Body Fluid Volume 1000.0 Body Fluid Color RED Body Fluid Appearance BLOODY Body Fluid WBC 746 Body Fluid RBC Body Fluid Neutrophils % 9 Body Fluid Lymphocytes (%) 81 Body Fluid Monocytes % 10 Body Fluid Other Cells (%) Medications Medications Current Medications Atenolol (Tenormin) 50 mg DAILY PO ; Start 11/09/16 at 09:00 Furosemide (Lasix) 80 mg DAILY@06 PO ; Start 11/09/16 at 06:00 Spironolactone (Aldactone) 100 mg DAILY PO Last administered on 11/10/16 08:54 ; Admin Dose 100 MG; Start 11/09/16 at 09:00 Ondansetron HCl (Zofran Tab) 4 mg Q6H PRN PO NAUSEA AND/OR VOMITING; Start 11/09 at 02:00 Metoclopramide HCl (Reglan) 10 mg Q6H PRN IV NAUSEA AND/OR VOMITING; Start 11/09 at 02:00 Acetaminophen (Tylenol Tab) 650 mg Q6H PRN PO PAIN LEVEL 1-3 OR FEVER; Start at 02:00 Acetaminophen/ Hydrocodone Bitart ([place] (5/325)) 1 tab Q6H PRN PO MODERATE PAIN LEVEL 4-6; Start 11/09/16 at 02:00 Acetaminophen/ Hydrocodone Bitart ([place] (5/325)) 2 tab Q6H PRN PO SEVERE PAIN LEVEL 7-10 Last administered on 11/10/16 14:55; Admin Dose 2 TAB; Start 11/09/16 at 02:00 Famotidine 20 mg 20 mg DAILY PO Last administered on 11/10/16 08:54; Admin Dose 20 MG; Start 11/09/16 at 09:00 Sodium Chloride (NS) 250 ml @ 250 mls/hr Q1H PRN IV SBP <80 Last administered on 11/10/16 15:03; Admin Dose 250 MLS/HR; Start 11/10/16 at 15:00; Stop 11/10/16 at 15:59 Procedures Procedures PROCEDURE: Ultrasound guided paracentesis. CLINICAL INDICATION: Ascites and shortness of breath. COMPARISON: 11/01/2016. TECHNIQUE: The risks, benefits, and alternatives were explained to the patient and/or the patient's family, including but not limited to bleeding, infection, pain, visceral or vascular damage, shock, and . The patient and/or the patient' s family understood the risks and the alternatives and wished to proceed with the procedure. Informed written consent was obtained. A procedural time out was performed. The patient's name, date of , and procedure to be performed were verified. Utilizing ultrasound guidance, optimal location for entry to the peritoneal cavity was ascertained. The overlying skin was prepped and draped in the usual sterile fashion. Approximately 10 ml of 1% Xylocaine was injected locally for pain control. Using ultrasound guidance, an 8 [place] catheter was introduced into the peritoneal cavity in the right lower quadrant without difficulty. FINDINGS: Initial images demonstrate ascites. Approximately 4.9 liters of serous fluid was aspirated and sent for laboratory analysis. The patient tolerated the procedure well without complication. IMPRESSION: 1. Successful ultrasound-guided paracentesis. RPTAT: QQ .Willy Mustafa MD, MD Date Time Electronically viewed and signed by .Willy Mustafa MD, on 11/10/2016 15:28 .JYOTHI FREGOSO Nov 10, 2016 15:57
[2016-11-10 16:40] VITALS: BP_SYST 76; BP_SYST 80; BP_DIAS 46; BP_DIAS 50; PULSE 61
[2016-11-10] MEDS: SOD CHLORIDE 0.9% 250 ML IV PRN ×2 (17:42→17:46)
[2016-11-10 17:46] VITALS: BP 92/54; PULSE 64
[2016-11-10 20:03] VITALS: BP 95/54; RESP 18
--- NOTE | 2016-11-10 22:45 | PN ---
Date/Time of Note Date/Time of Note DATE: 11/10/16 TIME: 22:42 Assessment/Plan VTE Prophylaxis VTE Prophylaxis Intervention: SCD's Lines/Catheters [facility] Saline Lock Urinary Cath still in place: No Assessment/Plan Chief Complaint/Hosp Course pelvic mass and ascites Problems: Assessment/Plan 56 year old female with increasing ascites 4-5 mo and a pelvic mass and + peritoneal fluid. Examined patient and reviewed chart. Discussed options in detail and anticipate primary surgery Sun or Sun. Will start bowel prep Sunday. Will complete consultation note a.m. Thank YOU Kenan Martínez M.D. Subjective 24 Hr Interval Summary Free Text/Dictation 56 year old female with increasing ascites 4-5 mo and a pelvic mass and + peritoneal fluid. Examined patient and reviewed chart. Discussed options in detail and anticipate primary surgery Sun or Sun. Will start bowel prep Sunday. Will complete consultation note a.m. Thank YOU Kenan Martínez M.D. Exam/Review of Systems Vital Signs Vitals Vital Signs Date Time Temp Pulse Resp B/P Pulse Ox O2 Delivery O2 Flow Rate FiO2 11/10/16 20:03 95/54 11/10/16 20:03 98.1 61 18 98 11/09/16 16:30 Room Air Intake and Output 11/09/16 11/09/16 11/10/16 15:00 23:00 07:00 Intake Total 480 ml Balance 480 ml Results Result Diagram: 11/08/16 2253 11/08/16 2253 Results 24 hrs Laboratory Tests Test 11/10/16 11:35 Body Fluid Type PLEURAL Body Fluid Volume 1000.0 Body Fluid Color RED Body Fluid Appearance BLOODY Body Fluid WBC 746 Body Fluid RBC Body Fluid Neutrophils % 9 Body Fluid Lymphocytes (%) 81 Body Fluid Monocytes % 10 Body Fluid Other Cells (%) Medications Medications Current Medications Ondansetron HCl (Zofran Tab) 4 mg Q6H PRN PO NAUSEA AND/OR VOMITING; Start 11/09 at 02:00 Metoclopramide HCl (Reglan) 10 mg Q6H PRN IV NAUSEA AND/OR VOMITING; Start 11/09 at 02:00 Acetaminophen (Tylenol Tab) 650 mg Q6H PRN PO PAIN LEVEL 1-3 OR FEVER; Start at 02:00 Acetaminophen/ Hydrocodone Bitart ([place] (5/325)) 1 tab Q6H PRN PO MODERATE PAIN LEVEL 4-6; Start 11/09/16 at 02:00 Acetaminophen/ Hydrocodone Bitart ([place] (5/325)) 2 tab Q6H PRN PO SEVERE PAIN LEVEL 7-10 Last administered on 11/10/16 14:55; Admin Dose 2 TAB; Start 11/09/16 at 02:00 Famotidine (Pepcid) 20 mg DAILY PO Last administered on 11/10/16 08:54; Admin Dose 20 MG; Start 11/09/16 at 09:00 Atenolol (Tenormin) 25 mg DAILY PO ; Start 11/12/16 at 09:00 Furosemide (Lasix) 40 mg DAILY@06 PO ; Start 11/12/16 at 06:00 Spironolactone 50 mg 50 mg DAILY PO ; Start 11/12/16 at 09:00 Sodium Chloride (NS) 250 ml @ 250 mls/hr PRN PRN IV SBP <80 Last administered on 11/10/16 17:42; Admin Dose 250 MLS/HR; Start 11/10/16 at 17:30 KENAN MARTÍNEZ MD Nov 10, 2016 22:45
[2016-11-11 00:52] VITALS: BP 80/48
[2016-11-11] MEDS: SOD CHLORIDE 0.9% 250 ML IV PRN (00:52)
[2016-11-11 02:01] VITALS: BP 83/59
[2016-11-11 03:31] VITALS: BP 89/52
[2016-11-11 05:05] VITALS: BP 96/55; PULSE 64
[2016-11-11 05:19] LABS: ADD SCAN DIFF NO
[2016-11-11 05:32] LABS: BASOPHIL # 0.1 10^3/ul (0.0-0.1); BASOPHILS % 1.2 % (0.0-2.0); EOSINOPHILS # 0.1 10^3/ul (0.0-0.5); EOSINOPHILS % 1.8 % (0.0-7.0); HEMATOCRIT 34.1 % (37.0-47.0); HEMOGLOBIN 10.7 g/dl (12.0-16.0); LYMPHOCYTES # 1.8 10^3/ul (0.8-2.9); LYMPHOCYTES % 26.1 % (15.0-51.0); MEAN CORPUSCULAR HEMOGLOBIN 27.7 pg (29.0-33.0); MEAN CORPUSCULAR HGB CONC 31.4 g/dl (32.0-37.0); MEAN CORPUSCULAR VOLUME 88.3 fl (82.0-101.0); MEAN PLATELET VOLUME 9.2 fl (7.4-10.4); MONOCYTE # 0.8 10^3/ul (0.3-0.9); NEUTROPHIL # 4.1 10^3/ul (1.6-7.5); NEUTROPHILS % 59.6 % (39.0-77.0); PLATELET COUNT 490 10^3/UL (140-415); RED BLOOD COUNT 3.86 10^6/ul (4.20-5.40); RED CELL DISTRIBUTION WIDTH 15.3 % (11.5-14.5); WHITE BLOOD COUNT 6.8 10^3/ul (4.8-10.8)
[2016-11-11 05:36] LABS: CALCIUM 8.4 mg/dl (8.4-10.2); CREATININE 0.96 mg/dl (0.44-1.00); POTASSIUM 4.7 mmol/L (3.5-5.1)
[2016-11-11 07:44] VITALS: BP 96/55; RESP 17
--- NOTE | 2016-11-11 08:21 | CONS ---
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 -at this time patient needs follow up with [facility] as she will likely need optimal debulking surgery followed by chemotherapy -per Dr. Garcia, anticipate primary surgery Sun or Sun. Will start bowel prep Sunday. -CA 125 536 -f/u final cytology results -s/p paracentesis 11/10/16 for her abdominal distension, with removal of 4.9L Problems: Consultation Date/Type/Reason Admit Date/Time Nov 09, 2016 at 00:55 Initial Consult Date 11/09/16 Type of Consultation: oncology Referring Provider: JYOTHI BENAVIDES 24 HR Interval Summary Free Text/Dictation Patient doing well, denies abdominal pain currently after paracentesis.. Exam/Review of Systems Vital Signs Vitals Vital Signs Date Time Temp Pulse Resp B/P Pulse Ox O2 Delivery O2 Flow Rate FiO2 11/11/16 07:44 98.4 68 17 96/55 98 11/09/16 16:30 Room Air Intake and Output 11/10/16 11/10/16 11/11/16 15:00 23:00 07:00 Intake Total 980 ml 250 ml Balance 980 ml 250 ml Exam Constitutional: alert, oriented Psych: no complaints Head: atraumatic, normocephalic Eyes: nl conjunctiva ENMT: nl external ears & nose Neck: supple Respiratory: clear to auscultation, normal air movement Cardiovascular: regular rate and rhythm Gastrointestinal: ascites, soft Musculoskeletal: nl extremities to inspection, nl gait and stance Extremities: normal pulses Results Result Diagram: 11/11/16 0428 11/11/16 0428 Results 24 hrs Laboratory Tests Test 11/10/16 11:35 11/11/16 04:28 Body Fluid Type PLEURAL Body Fluid Volume 1000.0 Body Fluid Color RED Body Fluid Appearance BLOODY Body Fluid WBC 746 Body Fluid RBC Body Fluid Neutrophils % 9 Body Fluid Lymphocytes (%) 81 Body Fluid Monocytes % 10 Body Fluid Other Cells (%) White Blood Count 6.8 # Red Blood Count 3.86 L Hemoglobin 10.7 L Hematocrit 34.1 L Mean Corpuscular Volume 88.3 Mean Corpuscular Hemoglobin 27.7 L Mean Corpuscular Hemoglobin Concent 31.4 L Red Cell Distribution Width 15.3 H Platelet Count 490 #H Mean Platelet Volume 9.2 Neutrophils % 59.6 Lymphocytes % 26.1 Monocytes % 11.0 Eosinophils % 1.8 Basophils % 1.2 Nucleated Red Blood Cells % 0.0 Neutrophils # 4.1 Lymphocytes # 1.8 Monocytes # 0.8 Eosinophils # 0.1 Basophils # 0.1 Nucleated Red Blood Cells # 0.0 Sodium Level 133 L Potassium Level 4.7 Chloride Level 103 Carbon Dioxide Level 24 Anion Gap 11 Blood Urea Nitrogen 25 H Creatinine 0.96 Glucose Level 86 Calcium Level 8.4 Lipase 111 Medications Medications Current Medications Ondansetron HCl (Zofran Tab) 4 mg Q6H PRN PO NAUSEA AND/OR VOMITING; Start 11/09 at 02:00 Metoclopramide HCl (Reglan) 10 mg Q6H PRN IV NAUSEA AND/OR VOMITING; Start 11/09 at 02:00 Acetaminophen (Tylenol Tab) 650 mg Q6H PRN PO PAIN LEVEL 1-3 OR FEVER; Start at 02:00 Acetaminophen/ Hydrocodone Bitart ([place] (5/325)) 1 tab Q6H PRN PO MODERATE PAIN LEVEL 4-6; Start 11/09/16 at 02:00 Acetaminophen/ Hydrocodone Bitart ([place] (5/325)) 2 tab Q6H PRN PO SEVERE PAIN LEVEL 7-10 Last administered on 11/10/16 14:55; Admin Dose 2 TAB; Start 11/09/16 at 02:00 Famotidine (Pepcid) 20 mg DAILY PO Last administered on 11/10/16 08:54; Admin Dose 20 MG; Start 11/09/16 at 09:00 Atenolol (Tenormin) 25 mg DAILY PO ; Start 11/12/16 at 09:00 Furosemide (Lasix) 40 mg DAILY@06 PO ; Start 11/12/16 at 06:00 Spironolactone 50 mg 50 mg DAILY PO ; Start 11/12/16 at 09:00 Sodium Chloride (NS) 250 ml @ 250 mls/hr PRN PRN IV SBP <80 Last administered on 11/11/16 00:52; Admin Dose 250 MLS/HR; Start 11/10/16 at 17:30 TOMARK MD Nov 11, 2016 08:21
[2016-11-11] MEDS: FAMOTIDINE 20 MG TAB PO SCH (09:14)
[2016-11-11 10:10] LABS: FLUID TYPE ASCITES
--- NOTE | 2016-11-11 12:03 | PN ---
Date/Time of Note Date/Time of Note DATE: 11/11/16 TIME: 12:00 Assessment/Plan VTE Prophylaxis VTE Prophylaxis Intervention: SCD's Lines/Catheters IV Catheter Type (from Nrsg): Saline Lock Urinary Cath still in place: No Assessment/Plan Assessment/Plan 1. Abd pain likely 2/2 pancreatitis: improved 2. Newly diagnosed Malignancy of Ovarian or peritoneal origin 3. Hypochromic anemia 4. CKD r/o diuretic induced renal insufficiency 5. Mild Pancreatitis PLAN: re: cancer: Appreciate Dr mcgill review. Surgery planned for sunday re: abd pain : improved, resume CLD and observe, lipase levels remain wnl re: hypotension: hold diuretics and antihypertensives for low BP, gentle hydration if hypotension worsens Continue supportive care. Subjective 24 Hr Interval Summary Free Text/Dictation Patient seen and examined. no further abd pain Exam/Review of Systems Vital Signs Vitals Vital Signs Date Time Temp Pulse Resp B/P Pulse Ox O2 Delivery O2 Flow Rate FiO2 11/11/16 07:44 98.4 68 17 96/55 98 11/09/16 16:30 Room Air Intake and Output 11/10/16 11/10/16 11/11/16 15:00 23:00 07:00 Intake Total 980 ml 250 ml Balance 980 ml 250 ml Exam Constitutional: alert, oriented Psych: anxiety Head: atraumatic, normocephalic Eyes: PERRL ENMT: mucosa pink and moist Neck: supple Respiratory: clear to auscultation, normal air movement Cardiovascular: regular rate and rhythm Gastrointestinal: bowel sounds, soft, non tender, No distended Neurological: nl mental status Results Result Diagram: 11/11/16 0428 11/11/16 0428 Results 24 hrs Laboratory Tests Test 11/11/16 04:28 White Blood Count 6.8 # Red Blood Count 3.86 L Hemoglobin 10.7 L Hematocrit 34.1 L Mean Corpuscular Volume 88.3 Mean Corpuscular Hemoglobin 27.7 L Mean Corpuscular Hemoglobin Concent 31.4 L Red Cell Distribution Width 15.3 H Platelet Count 490 #H Mean Platelet Volume 9.2 Neutrophils % 59.6 Lymphocytes % 26.1 Monocytes % 11.0 Eosinophils % 1.8 Basophils % 1.2 Nucleated Red Blood Cells % 0.0 Neutrophils # 4.1 Lymphocytes # 1.8 Monocytes # 0.8 Eosinophils # 0.1 Basophils # 0.1 Nucleated Red Blood Cells # 0.0 Sodium Level 133 L Potassium Level 4.7 Chloride Level 103 Carbon Dioxide Level 24 Anion Gap 11 Blood Urea Nitrogen 25 H Creatinine 0.96 Glucose Level 86 Calcium Level 8.4 Lipase 111 Medications Medications Current Medications Ondansetron HCl (Zofran Tab) 4 mg Q6H PRN PO NAUSEA AND/OR VOMITING; Start 11/09 at 02:00 Metoclopramide HCl (Reglan) 10 mg Q6H PRN IV NAUSEA AND/OR VOMITING; Start 11/09 at 02:00 Acetaminophen (Tylenol Tab) 650 mg Q6H PRN PO PAIN LEVEL 1-3 OR FEVER; Start at 02:00 Acetaminophen/ Hydrocodone Bitart ([place] (5/325)) 1 tab Q6H PRN PO MODERATE PAIN LEVEL 4-6; Start 11/09/16 at 02:00 Acetaminophen/ Hydrocodone Bitart ([place] (5/325)) 2 tab Q6H PRN PO SEVERE PAIN LEVEL 7-10 Last administered on 11/10/16 14:55; Admin Dose 2 TAB; Start 11/09/16 at 02:00 Famotidine (Pepcid) 20 mg DAILY PO Last administered on 11/11/16 09:14; Admin Dose 20 MG; Start 11/09/16 at 09:00 Atenolol (Tenormin) 25 mg DAILY PO ; Start 11/12/16 at 09:00 Furosemide (Lasix) 40 mg DAILY@06 PO ; Start 11/12/16 at 06:00 Spironolactone 50 mg 50 mg DAILY PO ; Start 11/12/16 at 09:00 Sodium Chloride (NS) 250 ml @ 250 mls/hr PRN PRN IV SBP <80 Last administered on 11/11/16 00:52; Admin Dose 250 MLS/HR; Start 11/10/16 at 17:30 JYOTHI BENAVIDES Nov 11, 2016 12:03
--- NOTE | 2016-11-11 12:47 | CONS ---
Date/Time of Note Date/Time of Note DATE: 11/11/16 TIME: 12:46 Assessment/Plan Assessment/Plan Chief Complaint/Hosp Course pelvic mass and ascites Problems: Consultation Date/Type/Reason Admit Date/Time Nov 09, 2016 at 00:55 Hx of Present Illness Kenan Martínez M.D. 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 Paracentesis cytology adenoca. Medical history/ROS: all other systems unremarkable. Surgical history: no significant abdominal procedures. Medications: reviewed gardisil Colonoscopy Allergies: No active allergies recorded Family history: unremarkable. Social history: no identified high-risk categories. Review of Systems: Negative except for above noted Physical Examination General: Alert. HEENT: Pupils are equal, round, reactive to light and accommodation. Neck: Supple with no masses of lymphadenopathy. Breast: Deferred due to recent examination and responsibility of primary care physician. Chest: Clear to auscultation and percussion with no rales, rhonchi, or wheeze. Heart: Normal rhythm with no murmur. Abdominal Exam: normal, soft, ndistended with a suggetion of some ascites, NT, nl bowel sounds. Pelvic exam: central cystic/globular mass, suggestion of cul-de-sac nodularity noted Rectal: confirmatory with pelvic exam. 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 All risks and benefits of this procedure have been discussed in detail with the patient, as well as alternative treatment strategies and their implications. The patient is aware that there is some possibility of a blood transfusion and its associated risks and benefits. She wishes to proceed and gives her informed consent. Kenan Martínez M.D. Constitutional: no complaints Eyes: no complaints ENT: no complaints Respiratory: no complaints Cardiovascular: no complaints Gastrointestinal: nausea, pain Genitourinary: no complaints Musculoskeletal: no complaints Skin: no complaints Neurologic: no complaints Psychological: anxiety Social History Alcohol Use: none Smoking Status: Never smoker Drug Use: none Exam/Review of Systems Vital Signs Vitals Vital Signs Date Time Temp Pulse Resp B/P Pulse Ox O2 Delivery O2 Flow Rate FiO2 11/11/16 07:44 98.4 68 17 96/55 98 11/09/16 16:30 Room Air Intake and Output 11/10/16 11/10/16 11/11/16 15:00 23:00 07:00 Intake Total 980 ml 250 ml Balance 980 ml 250 ml Results Result Diagram: 11/11/16 0428 11/11/16 0428 Results 24 hrs Laboratory Tests Test 11/11/16 04:28 White Blood Count 6.8 # Red Blood Count 3.86 L Hemoglobin 10.7 L Hematocrit 34.1 L Mean Corpuscular Volume 88.3 Mean Corpuscular Hemoglobin 27.7 L Mean Corpuscular Hemoglobin Concent 31.4 L Red Cell Distribution Width 15.3 H Platelet Count 490 #H Mean Platelet Volume 9.2 Neutrophils % 59.6 Lymphocytes % 26.1 Monocytes % 11.0 Eosinophils % 1.8 Basophils % 1.2 Nucleated Red Blood Cells % 0.0 Neutrophils # 4.1 Lymphocytes # 1.8 Monocytes # 0.8 Eosinophils # 0.1 Basophils # 0.1 Nucleated Red Blood Cells # 0.0 Sodium Level 133 L Potassium Level 4.7 Chloride Level 103 Carbon Dioxide Level 24 Anion Gap 11 Blood Urea Nitrogen 25 H Creatinine 0.96 Glucose Level 86 Calcium Level 8.4 Lipase 111 Medications Medications Current Medications Ondansetron HCl (Zofran Tab) 4 mg Q6H PRN PO NAUSEA AND/OR VOMITING; Start 11/09 at 02:00 Metoclopramide HCl (Reglan) 10 mg Q6H PRN IV NAUSEA AND/OR VOMITING; Start 11/09 at 02:00 Acetaminophen (Tylenol Tab) 650 mg Q6H PRN PO PAIN LEVEL 1-3 OR FEVER; Start at 02:00 Acetaminophen/ Hydrocodone Bitart ([place] (5/325)) 1 tab Q6H PRN PO MODERATE PAIN LEVEL 4-6; Start 11/09/16 at 02:00 Acetaminophen/ Hydrocodone Bitart ([place] (5/325)) 2 tab Q6H PRN PO SEVERE PAIN LEVEL 7-10 Last administered on 11/10/16 14:55; Admin Dose 2 TAB; Start 11/09/16 at 02:00 Famotidine (Pepcid) 20 mg DAILY PO Last administered on 11/11/16 09:14; Admin Dose 20 MG; Start 11/09/16 at 09:00 Atenolol (Tenormin) 25 mg DAILY PO ; Start 11/12/16 at 09:00 Furosemide (Lasix) 40 mg DAILY@06 PO ; Start 11/12/16 at 06:00 Spironolactone 50 mg 50 mg DAILY PO ; Start 11/12/16 at 09:00 Sodium Chloride 250 ml @ 250 mls/hr PRN PRN IV SBP <80 Last administered on 00:52; Admin Dose 250 MLS/HR; Start 11/10/16 at 17:30 Sodium Chloride (NS) 1,000 ml @ 50 mls/hr Q20H IV ; Start 11/11/16 at 12:30 KENAN MARTÍNEZ MD Nov 11, 2016 12:47
[2016-11-11] MEDS: SOD CHLORIDE 0.9% 1,000 ML IV SCH (14:25)
[2016-11-11 20:05] VITALS: BP 105/64; RESP 18
--- NOTE | 2016-11-11 22:58 | PN ---
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 O- Resp- symmetric and no major effort CVS- NSR Abd- mild ascites Ext- NT no edema A- probable IIIc ovarian cancer P- can have clear liq as will have Golytely bowel prep before surgey must be adequately hydrated as; Ascites will recurr due to cancer regardless and Golytely will further dehydrate CT to better define anatomy and procedures needed: I will order tomorrow pending VS and creatinine Additional Comments A- probable IIIc ovarian cancer P- can have clear liq as will have Golytely bowel prep before surgey must be adequately hydrated as; Ascites will recurr due to cancer regardless and Golytely will further dehydrate CT to better define anatomy and procedures needed: I will order tomorrow pending VS and creatinine Exam/Review of Systems Vital Signs Vitals Vital Signs Date Time Temp Pulse Resp B/P Pulse Ox O2 Delivery O2 Flow Rate FiO2 11/11/16 20:05 98.3 74 18 105/64 97 11/09/16 16:30 Room Air Intake and Output 11/10/16 11/10/16 11/11/16 15:00 23:00 07:00 Intake Total 980 ml 250 ml Balance 980 ml 250 ml Results Result Diagram: 11/11/16 0428 11/11/16 0428 Results 24 hrs Laboratory Tests Test 11/11/16 04:28 White Blood Count 6.8 # Red Blood Count 3.86 L Hemoglobin 10.7 L Hematocrit 34.1 L Mean Corpuscular Volume 88.3 Mean Corpuscular Hemoglobin 27.7 L Mean Corpuscular Hemoglobin Concent 31.4 L Red Cell Distribution Width 15.3 H Platelet Count 490 #H Mean Platelet Volume 9.2 Neutrophils % 59.6 Lymphocytes % 26.1 Monocytes % 11.0 Eosinophils % 1.8 Basophils % 1.2 Nucleated Red Blood Cells % 0.0 Neutrophils # 4.1 Lymphocytes # 1.8 Monocytes # 0.8 Eosinophils # 0.1 Basophils # 0.1 Nucleated Red Blood Cells # 0.0 Sodium Level 133 L Potassium Level 4.7 Chloride Level 103 Carbon Dioxide Level 24 Anion Gap 11 Blood Urea Nitrogen 25 H Creatinine 0.96 Glucose Level 86 Calcium Level 8.4 Lipase 111 Medications Medications Current Medications Ondansetron HCl (Zofran Tab) 4 mg Q6H PRN PO NAUSEA AND/OR VOMITING; Start 11/09 at 02:00 Metoclopramide HCl (Reglan) 10 mg Q6H PRN IV NAUSEA AND/OR VOMITING; Start 11/09 at 02:00 Acetaminophen (Tylenol Tab) 650 mg Q6H PRN PO PAIN LEVEL 1-3 OR FEVER; Start at 02:00 Acetaminophen/ Hydrocodone Bitart ([place] (5/325)) 1 tab Q6H PRN PO MODERATE PAIN LEVEL 4-6; Start 11/09/16 at 02:00 Acetaminophen/ Hydrocodone Bitart ([place] (5/325)) 2 tab Q6H PRN PO SEVERE PAIN LEVEL 7-10 Last administered on 11/10/16 14:55; Admin Dose 2 TAB; Start 11/09/16 at 02:00 Famotidine (Pepcid) 20 mg DAILY PO Last administered on 11/11/16 09:14; Admin Dose 20 MG; Start 11/09/16 at 09:00 Atenolol 25 mg 25 mg DAILY PO ; Start 11/12/16 at 09:00 Sodium Chloride 250 ml @ 250 mls/hr PRN PRN IV SBP <80 Last administered on 00:52; Admin Dose 250 MLS/HR; Start 11/10/16 at 17:30 Sodium Chloride (NS) 1,000 ml @ 75 mls/hr [id number] IV Last administered on 14:25; Admin Dose 50 MLS/HR; Start 11/11/16 at 12:30 DILLON MARTÍNEZ MD Nov 11, 2016 22:58
[2016-11-12] MEDS: SOD CHLORIDE 0.9% 1,000 ML IV SCH ×3 (05:43→21:13)
[2016-11-12] MEDS ORDERED: FUROSEMIDE 40 MG TAB PO SCH (06:00)
[2016-11-12 06:13] LABS: ADD SCAN DIFF NO
[2016-11-12 06:29] LABS: BASOPHIL # 0.1 10^3/ul (0.0-0.1); EOSINOPHILS # 0.1 10^3/ul (0.0-0.5); EOSINOPHILS % 1.8 % (0.0-7.0); HEMATOCRIT 35.9 % (37.0-47.0); HEMOGLOBIN 11.1 g/dl (12.0-16.0); LYMPHOCYTES % 24.4 % (15.0-51.0); MEAN CORPUSCULAR HEMOGLOBIN 27.6 pg (29.0-33.0); MEAN CORPUSCULAR HGB CONC 30.9 g/dl (32.0-37.0); MEAN CORPUSCULAR VOLUME 89.3 fl (82.0-101.0); MEAN PLATELET VOLUME 8.9 fl (7.4-10.4); MONOCYTE # 0.8 10^3/ul (0.3-0.9); MONOCYTES % 9.6 % (0.0-11.0); NEUTROPHILS % 62.6 % (39.0-77.0); PLATELET COUNT 568 10^3/UL (140-415); RED BLOOD COUNT 4.02 10^6/ul (4.20-5.40); RED CELL DISTRIBUTION WIDTH 15.3 % (11.5-14.5)
[2016-11-12 06:41] LABS: POTASSIUM 4.6 mmol/L (3.5-5.1)
[2016-11-12 06:43] LABS: CREATININE 1.06 mg/dl (0.44-1.00)
[2016-11-12 06:44] LABS: CALCIUM 8.5 mg/dl (8.4-10.2)
[2016-11-12 07:15] VITALS: BP 95/65; RESP 18
[2016-11-12] MEDS: FAMOTIDINE 20 MG TAB PO SCH (08:38)
[2016-11-12] MEDS ORDERED: SPIRONOLACTONE 50 MG TAB PO SCH (09:00)
[2016-11-12] MEDS ORDERED: ATENOLOL 25 MG TAB PO SCH (09:00)
--- NOTE | 2016-11-12 10:06 | PN ---
Date/Time of Note Date/Time of Note DATE: 11/12/16 TIME: 09:59 Assessment/Plan VTE Prophylaxis VTE Prophylaxis Intervention: SCD's Lines/Catheters IV Catheter Type (from [facility]rs): Peripheral IV Urinary Cath still in place: No Assessment/Plan Assessment/Plan 1. Abd pain likely 2/2 pancreatitis: improved 2. Newly diagnosed Malignancy of Ovarian or peritoneal origin 3. Hypochromic anemia 4. Diuretic induced renal insufficiency 5. Mild Pancreatitis: resolved 6. Chronic Hypertension > Mild Asymptomatic Hypotension: also likely 2/2 diuretic therapy for ascites PLAN: re: cancer: Appreciate Dr mcgill review. Surgery planned for sunday / CT with contrast required for surgery / planned for today or tomorrow Per Fire Alarm Inspector surgery : try to abstain fro paracentesis and diuretics / continue hydration to help renal function in preparation for CT Will also give Mucomyst pre and post CT re: Hypotension: continue fluids and monitor / hold all antihypertensives as well Continue supportive care. leave on CLD in preparation for bowel prep tomorrow PROPHYLAXIS: SCDs/ pepcid Subjective 24 Hr Interval Summary Constitutional: improved Gastrointestinal: other (tolerating diet), No pain Exam/Review of Systems Vital Signs Vitals Vital Signs Date Time Temp Pulse Resp B/P Pulse Ox O2 Delivery O2 Flow Rate FiO2 11/12/16 07:15 97.8 67 18 95/65 97 11/09/16 16:30 Room Air Intake and Output 11/11/16 11/11/16 11/12/16 15:00 23:00 07:00 Intake Total 825 ml 690 ml Balance 825 ml 690 ml Exam Constitutional: alert, oriented Psych: anxiety Head: atraumatic, normocephalic Eyes: PERRL ENMT: mucosa pink and moist Neck: supple Respiratory: clear to auscultation, normal air movement Cardiovascular: regular rate and rhythm Gastrointestinal: bowel sounds, soft, non tender, No distended Neurological: nl mental status Results Result Diagram: 11/12/1618 11/12/1618 Results 24 hrs Laboratory Tests Test 11/12/16 05:18 White Blood Count 8.0 Red Blood Count 4.02 L Hemoglobin 11.1 L Hematocrit 35.9 L Mean Corpuscular Volume 89.3 Mean Corpuscular Hemoglobin 27.6 L Mean Corpuscular Hemoglobin Concent 30.9 L Red Cell Distribution Width 15.3 H Platelet Count 568 H Mean Platelet Volume 8.9 Neutrophils % 62.6 Lymphocytes % 24.4 Monocytes % 9.6 Eosinophils % 1.8 Basophils % 1.0 Nucleated Red Blood Cells % 0.0 Neutrophils # 5.0 Lymphocytes # 2.0 Monocytes # 0.8 Eosinophils # 0.1 Basophils # 0.1 Nucleated Red Blood Cells # 0.0 Sodium Level 136 Potassium Level 4.6 Chloride Level 103 Carbon Dioxide Level 23 Anion Gap 15 Blood Urea Nitrogen 22 H Creatinine 1.06 H Glucose Level 81 Calcium Level 8.5 Medications Medications Current Medications Ondansetron HCl (Zofran Tab) 4 mg Q6H PRN PO NAUSEA AND/OR VOMITING; Start 11/09 at 02:00 Metoclopramide HCl (Reglan) 10 mg Q6H PRN IV NAUSEA AND/OR VOMITING; Start 11/09 at 02:00 Acetaminophen (Tylenol Tab) 650 mg Q6H PRN PO PAIN LEVEL 1-3 OR FEVER; Start at 02:00 Acetaminophen/ Hydrocodone Bitart ([place] (5/325)) 1 tab Q6H PRN PO MODERATE PAIN LEVEL 4-6; Start 11/09/16 at 02:00 Acetaminophen/ Hydrocodone Bitart ([place] (5/325)) 2 tab Q6H PRN PO SEVERE PAIN LEVEL 7-10 Last administered on 11/10/16 14:55; Admin Dose 2 TAB; Start 11/09/16 at 02:00 Famotidine (Pepcid) 20 mg DAILY PO Last administered on 11/12/16 08:38; Admin Dose 20 MG; Start 11/09/16 at 09:00 Atenolol 25 mg 25 mg DAILY PO ; Start 11/12/16 at 09:00 Sodium Chloride 250 ml @ 250 mls/hr PRN PRN IV SBP <80 Last administered on 00:52; Admin Dose 250 MLS/HR; Start 11/10/16 at 17:30 Sodium Chloride (NS) 1,000 ml @ 75 mls/hr [id number] IV Last administered on 05:43; Admin Dose 75 MLS/HR; Start 11/11/16 at 12:30 JYOTHI BENAVIDES Nov 12, 2016 10:06
[2016-11-12] MEDS: ACETYLCYSTEINE 600 MG CAP PO SCH ×2 (16:33→21:13)
[2016-11-12 17:05] VITALS: BP 101/67; PULSE 73
--- NOTE | 2016-11-12 17:08 | PN ---
Date/Time of Note Date/Time of Note DATE: 11/12/16 TIME: 17:04 Assessment/Plan VTE Prophylaxis VTE Prophylaxis Intervention: SCD's Lines/Catheters IV C[facility] Type (from [facility]): Saline Lock Urinary Cath still in place: No Assessment/Plan Chief Complaint/Hosp Course Probable ovarian cancer vs peritoneal Problems: Assessment/Plan A- probable IIIc ovarian cancer P- awaiting creatinine to allow CT with IV contrast of abd and pel; will then start bowel prep and will have office staff schedule surgery with OR via phone Sunday.m. Subjective 24 Hr Interval Summary Free Text/Dictation S- No n/v but uncomfortable and anxious for procedure. O- Resp- symmetric and no major effort CVS- NSR Abd- mild ascites Ext- NT no edema A- probable IIIc ovarian cancer P- awaiting creatinine to allow CT with IV contrast of abd and pel; will then start bowel prep and will have office staff schedule surgery with OR via phone Sunday a.m. Exam/Review of Systems Vital Signs Vitals Vital Signs Date Time Temp Pulse Resp B/P Pulse Ox O2 Delivery O2 Flow Rate FiO2 11/12/16 07:15 97.8 67 18 95/65 97 11/09/16 16:30 Room Air Intake and Output 11/11/16 11/11/16 11/12/16 15:00 23:00 07:00 Intake Total 825 ml 690 ml Balance 825 ml 690 ml Results Result Diagram: 11/12/16 0518 11/12/16 0518 Results 24 hrs Laboratory Tests Test 11/12/16 05:18 White Blood Count 8.0 Red Blood Count 4.02 L Hemoglobin 11.1 L Hematocrit 35.9 L Mean Corpuscular Volume 89.3 Mean Corpuscular Hemoglobin 27.6 L Mean Corpuscular Hemoglobin Concent 30.9 L Red Cell Distribution Width 15.3 H Platelet Count 568 H Mean Platelet Volume 8.9 Neutrophils % 62.6 Lymphocytes % 24.4 Monocytes % 9.6 Eosinophils % 1.8 Basophils % 1.0 Nucleated Red Blood Cells % 0.0 Neutrophils # 5.0 Lymphocytes # 2.0 Monocytes # 0.8 Eosinophils # 0.1 Basophils # 0.1 Nucleated Red Blood Cells # 0.0 Sodium Level 136 Potassium Level 4.6 Chloride Level 103 Carbon Dioxide Level 23 Anion Gap 15 Blood Urea Nitrogen 22 H Creatinine 1.06 H Glucose Level 81 Calcium Level 8.5 Medications Medications Current Medications Ondansetron HCl (Zofran Tab) 4 mg Q6H PRN PO NAUSEA AND/OR VOMITING; Start 11/09 at 02:00 Metoclopramide HCl (Reglan) 10 mg Q6H PRN IV NAUSEA AND/OR VOMITING; Start 11/09 at 02:00 Acetaminophen (Tylenol Tab) 650 mg Q6H PRN PO PAIN LEVEL 1-3 OR FEVER; Start at 02:00 Acetaminophen/ Hydrocodone Bitart ([place] (5/325)) 1 tab Q6H PRN PO MODERATE PAIN LEVEL 4-6; Start 11/09/16 at 02:00 Acetaminophen/ Hydrocodone Bitart ([place] (5/325)) 2 tab Q6H PRN PO SEVERE PAIN LEVEL 7-10 Last administered on 11/10/16 14:55; Admin Dose 2 TAB; Start 11/09/16 at 02:00 Famotidine 20 mg 20 mg DAILY PO Last administered on 11/12/16 08:38; Admin Dose 20 MG; Start 11/09/16 at 09:00 Sodium Chloride 250 ml @ 250 mls/hr PRN PRN IV SBP <80 Last administered on 00:52; Admin Dose 250 MLS/HR; Start 11/10/16 at 17:30 Sodium Chloride (NS) 1,000 ml @ 100 mls/hr Q10H IV Last administered on 05:43; Admin Dose 75 MLS/HR; Start 11/11/16 at 12:30 Acetylcysteine (Nac) 600 mg BID PO Last administered on 11/12/16 16:33; Admin Dose 600 MG; Start 11/12/16 at 11:30 DILLON MARTÍNEZ MD Nov 12, 2016 17:08
[2016-11-12 22:13] VITALS: BP 113/59; RESP 18
[2016-11-13 05:24] LABS: ADD SCAN DIFF NO
[2016-11-13 05:29] LABS: BASOPHIL # 0.1 10^3/ul (0.0-0.1); BASOPHILS % 0.6 % (0.0-2.0); EOSINOPHILS # 0.1 10^3/ul (0.0-0.5); EOSINOPHILS % 0.6 % (0.0-7.0); HEMATOCRIT 34.3 % (37.0-47.0); HEMOGLOBIN 10.7 g/dl (12.0-16.0); LYMPHOCYTES # 1.6 10^3/ul (0.8-2.9); LYMPHOCYTES % 16.8 % (15.0-51.0); MEAN CORPUSCULAR HEMOGLOBIN 27.9 pg (29.0-33.0); MEAN CORPUSCULAR HGB CONC 31.2 g/dl (32.0-37.0); MEAN CORPUSCULAR VOLUME 89.6 fl (82.0-101.0); MEAN PLATELET VOLUME 8.8 fl (7.4-10.4); MONOCYTE # 0.6 10^3/ul (0.3-0.9); NEUTROPHIL # 7.3 10^3/ul (1.6-7.5); NEUTROPHILS % 75.6 % (39.0-77.0); PLATELET COUNT 495 10^3/UL (140-415); RED BLOOD COUNT 3.83 10^6/ul (4.20-5.40); RED CELL DISTRIBUTION WIDTH 15.5 % (11.5-14.5); WHITE BLOOD COUNT 9.6 10^3/ul (4.8-10.8)
[2016-11-13 05:53] LABS: CREATININE 0.92 mg/dl (0.44-1.00); POTASSIUM 4.5 mmol/L (3.5-5.1)
[2016-11-13 07:10] VITALS: BP 97/57; RESP 16
[2016-11-13] MEDS: FAMOTIDINE 20 MG TAB PO SCH (08:25)
[2016-11-13] MEDS: ACETYLCYSTEINE 600 MG CAP PO SCH ×2 (08:25→21:09)
[2016-11-13] MEDS: SOD CHLORIDE 0.9% 1,000 ML IV SCH ×3 (13:05→23:05)
--- NOTE | 2016-11-13 15:24 | CONS ---
Date/Time of Note Date/Time of Note DATE: 11/13/16 TIME: 15:24 Assessment/Plan Assessment/Plan Chief Complaint/Hosp Course 56 yo female with malignant ascites whose cytology is consistent with primary peritoneal cancer vs ovarian primary. -at this time patient needs follow up with [facility] as she will likely need optimal debulking surgery followed by chemotherapy -per Dr. 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 F/U read of CT with IV contrast of abd and pel; will then start bowel prep and be scheduled for surgery per Dr. Pierce. -CA 125 536 -f/u final cytology results -s/p paracentesis 11/10/16 for her abdominal distension, with removal of 4.9L Problems: Consultation Date/Type/Reason Admit Date/Time Nov 09, 2016 at 00:55 Initial Consult Date 11/09/16 Type of Consultation: oncology Referring Provider: JYOTHI BENAVIDES 24 HR Interval Summary Free Text/Dictation Patient doing well, denies pain. Just came back from CT scan. Exam/Review of Systems Vital Signs Vitals Vital Signs Date Time Temp Pulse Resp B/P Pulse Ox O2 Delivery O2 Flow Rate FiO2 11/13/16 07:10 97.3 73 16 97/57 97 11/09/16 16:30 Room Air Intake and Output 11/12/16 11/12/16 11/13/16 15:00 23:00 07:00 Intake Total 600 ml 650 ml Balance 600 ml 650 ml Exam Constitutional: alert, oriented Psych: no complaints Head: atraumatic, normocephalic Eyes: nl conjunctiva ENMT: nl external ears & nose Neck: supple Respiratory: clear to auscultation, normal air movement Cardiovascular: regular rate and rhythm Gastrointestinal: ascites, soft Musculoskeletal: nl extremities to inspection, nl gait and stance Extremities: normal pulses Results Result Diagram: 11/13/162 11/13/16 0422 Results 24 hrs Laboratory Tests Test 11/13/16 04:22 White Blood Count 9.6 Red Blood Count 3.83 L Hemoglobin 10.7 L Hematocrit 34.3 L Mean Corpuscular Volume 89.6 Mean Corpuscular Hemoglobin 27.9 L Mean Corpuscular Hemoglobin Concent 31.2 L Red Cell Distribution Width 15.5 H Platelet Count 495 H Mean Platelet Volume 8.8 Neutrophils % 75.6 Lymphocytes % 16.8 Monocytes % 6.0 Eosinophils % 0.6 Basophils % 0.6 Nucleated Red Blood Cells % 0.0 Neutrophils # 7.3 Lymphocytes # 1.6 Monocytes # 0.6 Eosinophils # 0.1 Basophils # 0.1 Nucleated Red Blood Cells # 0.0 Sodium Level 133 L Potassium Level 4.5 Chloride Level 108 Carbon Dioxide Level 20 L Anion Gap 10 # Blood Urea Nitrogen 15 Creatinine 0.92 Glucose Level 92 Calcium Level 8.0 L Medications Medications Current Medications Ondansetron HCl (Zofran Tab) 4 mg Q6H PRN PO NAUSEA AND/OR VOMITING; Start 11/09 at 02:00 Metoclopramide HCl (Reglan) 10 mg Q6H PRN IV NAUSEA AND/OR VOMITING; Start 11/09 at 02:00 Acetaminophen (Tylenol Tab) 650 mg Q6H PRN PO PAIN LEVEL 1-3 OR FEVER; Start at 02:00 Acetaminophen/ Hydrocodone Bitart ([place] (5/325)) 1 tab Q6H PRN PO MODERATE PAIN LEVEL 4-6; Start 11/09/16 at 02:00 Acetaminophen/ Hydrocodone Bitart ([place] (5/325)) 2 tab Q6H PRN PO SEVERE PAIN LEVEL 7-10 Last administered on 11/10/16 14:55; Admin Dose 2 TAB; Start 11/09/16 at 02:00 Famotidine 20 mg 20 mg DAILY PO Last administered on 11/13/16 08:25; Admin Dose 20 MG; Start 11/09/16 at 09:00 Sodium Chloride 250 ml @ 250 mls/hr PRN PRN IV SBP <80 Last administered on 00:52; Admin Dose 250 MLS/HR; Start 11/10/16 at 17:30 Sodium Chloride (NS) 1,000 ml @ 100 mls/hr Q10H IV Last administered on 21:13; Admin Dose 100 MLS/HR; Start 11/11/16 at 12:30 Acetylcysteine (Nac) 600 mg BID PO Last administered on 11/13/16 08:25; Admin Dose 600 MG; Start 11/12/16 at 11:30 MARK PEDROZA MD Nov 13, 2016 15:24
--- NOTE | 2016-11-13 16:18 | PN ---
Date/Time of Note Date/Time of Note DATE: 11/13/16 TIME: 16:13 Assessment/Plan VTE Prophylaxis VTE Prophylaxis Intervention: SCD's Lines/Catheters [facility] Saline Lock Urinary Cath still in place: No Assessment/Plan Chief Complaint/Hosp Course Assessment/Plan: 56 F with: 1. Abd pain likely 2/2 pancreatitis: improved 2. Newly diagnosed Malignancy of Ovarian or peritoneal origin 3. Hypochromic anemia 4. Diuretic induced renal insufficiency 5. Mild Pancreatitis: resolved 6. Chronic Hypertension > Mild Asymptomatic Hypotension: also likely 2/2 diuretic therapy for ascites PLAN: re: cancer: Appreciate Dr mcgill review. will order for CT with contrast today since Cr level nL, required for surgery / planned for today or tomorrow Per Autopsy Assistant surgery : try to abstain fro paracentesis and diuretics / continue hydration to help renal function in preparation for CT Continue Mucomyst pre and post CT, with IVF's re: Hypotension: continue fluids and monitor / hold all antihypertensives as well Continue supportive care. leave on CLD in preparation for bowel prep tomorrow PROPHYLAXIS: SCDs/ pepcid Problems: Subjective 24 Hr Interval Summary Free Text/Dictation Pt awaiting CT scan, on IVF's and Mucomyst tolerating CLD. Exam/Review of Systems Vital Signs Vitals Vital Signs Date Time Temp Pulse Resp B/P Pulse Ox O2 Delivery O2 Flow Rate FiO2 11/13/16 07:10 97.3 73 16 97/57 97 11/09/16 16:30 Room Air Intake and Output 11/12/16 11/12/16 11/13/16 15:00 23:00 07:00 Intake Total 600 ml 650 ml Balance 600 ml 650 ml Exam Constitutional: alert, oriented Psych: anxiety Head: atraumatic, normocephalic Eyes: PERRL ENMT: mucosa pink and moist Neck: supple Respiratory: clear to auscultation, normal air movement Cardiovascular: regular rate and rhythm Gastrointestinal: bowel sounds, soft, non tender, No distended Neurological: nl mental status Results Result Diagram: 11/13/16 0422 11/13/16 0422 Results 24 hrs Laboratory Tests Test 11/13/16 04:22 White Blood Count 9.6 Red Blood Count 3.83 L Hemoglobin 10.7 L Hematocrit 34.3 L Mean Corpuscular Volume 89.6 Mean Corpuscular Hemoglobin 27.9 L Mean Corpuscular Hemoglobin Concent 31.2 L Red Cell Distribution Width 15.5 H Platelet Count 495 H Mean Platelet Volume 8.8 Neutrophils % 75.6 Lymphocytes % 16.8 Monocytes % 6.0 Eosinophils % 0.6 Basophils % 0.6 Nucleated Red Blood Cells % 0.0 Neutrophils # 7.3 Lymphocytes # 1.6 Monocytes # 0.6 Eosinophils # 0.1 Basophils # 0.1 Nucleated Red Blood Cells # 0.0 Sodium Level 133 L Potassium Level 4.5 Chloride Level 108 Carbon Dioxide Level 20 L Anion Gap 10 # Blood Urea Nitrogen 15 Creatinine 0.92 Glucose Level 92 Calcium Level 8.0 L Medications Medications Current Medications Ondansetron HCl (Zofran Tab) 4 mg Q6H PRN PO NAUSEA AND/OR VOMITING; Start 11/09 at 02:00 Metoclopramide HCl (Reglan) 10 mg Q6H PRN IV NAUSEA AND/OR VOMITING; Start 11/09 at 02:00 Acetaminophen (Tylenol Tab) 650 mg Q6H PRN PO PAIN LEVEL 1-3 OR FEVER; Start at 02:00 Acetaminophen/ Hydrocodone Bitart ([place] (5/325)) 1 tab Q6H PRN PO MODERATE PAIN LEVEL 4-6; Start 11/09/16 at 02:00 Acetaminophen/ Hydrocodone Bitart ([place] (5/325)) 2 tab Q6H PRN PO SEVERE PAIN LEVEL 7-10 Last administered on 11/10/16 14:55; Admin Dose 2 TAB; Start 11/09/16 at 02:00 Famotidine 20 mg 20 mg DAILY PO Last administered on 11/13/16 08:25; Admin Dose 20 MG; Start 11/09/16 at 09:00 Sodium Chloride 250 ml @ 250 mls/hr PRN PRN IV SBP <80 Last administered on 00:52; Admin Dose 250 MLS/HR; Start 11/10/16 at 17:30 Sodium Chloride (NS) 1,000 ml @ 100 mls/hr Q10H IV Last administered on 15:55; Admin Dose 100 MLS/HR; Start 11/11/16 at 12:30 Acetylcysteine (Nac) 600 mg BID PO Last administered on 11/13/16 08:25; Admin Dose 600 MG; Start 11/12/16 at 11:30 QUINCY KU Nov 13, 2016 16:18
[2016-11-13] MEDS ORDERED: IOHEXOL 300MG/ML 150 ML BTL ONE (16:57)
[2016-11-13] MEDS ORDERED: SOD CHLORIDE 0.9% 100 ML ONE (16:57)
[2016-11-13] MEDS ORDERED: BARIUM SULF 2% 450 ML BTL (BERRY SMOOTHIE) PO ONE (17:00)
--- NOTE | 2016-11-13 18:54 | RADRPT ---
PROCEDURE: CT of the abdomen and pelvis CLINICAL INDICATION: Abdominal pain TECHNIQUE: The study was performed utilizing a GE [employer] 64-slice multidetector CT scanner. Dir ect spiral axial sections were obtained through the abdomen and pelvis with intravenous contrast. Af ter administration of 100cc of Omnipaque-300, postcontrast images were obtained. Coronal and sagitt al reformatted images were performed. The CTDI vol is 13.72 mGy and the DLP is 774.49 mGy-cm. The i mages were reviewed on a PACS workstation. COMPARISON: 10/31/2016 FINDINGS: CT abdomen: A small left pleural effusion is seen with the suggestion of a trace right pleural effu rakesh. The heart is not enlarged. No pericardial effusion is seen. The liver is slightly nodular in contour. No focal liver lesions or intrahepatic biliary dilatation is seen. The gallbladder is again noted to have been removed. The spleen, pancreas, and adrenal gla nds are unremarkable in appearance. The kidneys are normal in size and contour enhance normally. No evidence of hydronephrosis or nephrolithiasis is seen. Ascites is seen which is loculated. The loculated ascites is seen along the right posterior hepatic peritoneal surface. In addition, the loculated ascites is seen in the lesser sac. Thickening of th e peritoneal lining is seen with nodularity. Increase soft tissue density is seen in the omentum. Thickening of the gastric antrum is seen. The remainder of the stomach otherwise appears grossly un remarkable. The small and large bowel are unremarkable in course and caliber. No inflammatory moss ges in the periappendiceal region is seen. No enlarged lymph nodes are seen. The aorta is normal in caliber. Atherosclerotic vascular disease is seen. A small umbilical hernia is seen containing ascit es once again. CT pelvis: Bilateral adnexal masses are seen which are complex demonstrating soft tissue and cystic components. The largest adnexal mass measures approximately 9.3 x 8.9 cm in size. The urinary blaine dder is normal. The pelvic organs are unremarkable. No osseous lesions are seen. IMPRESSION: 1. Loculated ascites with peritoneal thickening with nodularity worrisome for peritoneal metastasis . 2. Increased soft tissue density in the omentum consistent with omental metastasis. 3. Bilateral complex adnexal masses which may represent an ovarian neoplasm. The possibility of dr op metastasis should also be considered. 4. Thickening of the gastric antrum. Consider endoscopic correlation as clinically warranted. 3. Small pleural effusion with a trace right pleural effusion. RPTAT: HPNM Ryan Weems Physician Date Time Electronically viewed and signed by Ryan Weems, Physician on 11/13/2016 18:54 /
[2016-11-13 20:30] VITALS: BP 95/57; RESP 16
--- NOTE | 2016-11-13 21:05 | PN ---
Date/Time of Note Date/Time of Note DATE: 11/13/16 TIME: 21:03 Assessment/Plan VTE Prophylaxis VTE Prophylaxis Intervention: SCD's Lines/Catheters IV [facility] Type (from [facility]): Saline Lock Urinary Cath still in place: No Assessment/Plan Chief Complaint/Hosp Course Probable ovarian cancer vs peritoneal Problems: Assessment/Plan Tolerating liquids s/p CT and results noted. Will start Golytely bowle prep a.m. and surgery sched for Sunday as open procedure Subjective 24 Hr Interval Summary Free Text/Dictation Tolerating liquids s/p CT and results noted. Will start Golytely bowle prep a.m. and surgery sched for Sunday as open procedure. Exam/Review of Systems Vital Signs Vitals Vital Signs Date Time Temp Pulse Resp B/P Pulse Ox O2 Delivery O2 Flow Rate FiO2 11/13/16 20:30 97.9 76 16 95/57 96 11/09/16 16:30 Room Air Intake and Output 11/12/16 11/12/16 11/13/16 15:00 23:00 07:00 Intake Total 600 ml 650 ml Balance 600 ml 650 ml Results Result Diagram: 11/13/16 0422 11/13/16 0422 Results 24 hrs Laboratory Tests Test 11/13/16 04:22 White Blood Count 9.6 Red Blood Count 3.83 L Hemoglobin 10.7 L Hematocrit 34.3 L Mean Corpuscular Volume 89.6 Mean Corpuscular Hemoglobin 27.9 L Mean Corpuscular Hemoglobin Concent 31.2 L Red Cell Distribution Width 15.5 H Platelet Count 495 H Mean Platelet Volume 8.8 Neutrophils % 75.6 Lymphocytes % 16.8 Monocytes % 6.0 Eosinophils % 0.6 Basophils % 0.6 Nucleated Red Blood Cells % 0.0 Neutrophils # 7.3 Lymphocytes # 1.6 Monocytes # 0.6 Eosinophils # 0.1 Basophils # 0.1 Nucleated Red Blood Cells # 0.0 Sodium Level 133 L Potassium Level 4.5 Chloride Level 108 Carbon Dioxide Level 20 L Anion Gap 10 # Blood Urea Nitrogen 15 Creatinine 0.92 Glucose Level 92 Calcium Level 8.0 L Medications Medications Current Medications Ondansetron HCl (Zofran Tab) 4 mg Q6H PRN PO NAUSEA AND/OR VOMITING; Start 11/09 at 02:00 Metoclopramide HCl (Reglan) 10 mg Q6H PRN IV NAUSEA AND/OR VOMITING; Start 11/09 at 02:00 Acetaminophen (Tylenol Tab) 650 mg Q6H PRN PO PAIN LEVEL 1-3 OR FEVER; Start at 02:00 Acetaminophen/ Hydrocodone Bitart ([place] (5/325)) 1 tab Q6H PRN PO MODERATE PAIN LEVEL 4-6; Start 11/09/16 at 02:00 Acetaminophen/ Hydrocodone Bitart ([place] (5/325)) 2 tab Q6H PRN PO SEVERE PAIN LEVEL 7-10 Last administered on 11/10/16 14:55; Admin Dose 2 TAB; Start 11/09/16 at 02:00 Famotidine 20 mg 20 mg DAILY PO Last administered on 11/13/16 08:25; Admin Dose 20 MG; Start 11/09/16 at 09:00 Sodium Chloride 250 ml @ 250 mls/hr PRN PRN IV SBP <80 Last administered on 00:52; Admin Dose 250 MLS/HR; Start 11/10/16 at 17:30 Sodium Chloride (NS) 1,000 ml @ 100 mls/hr Q10H IV Last administered on 15:55; Admin Dose 100 MLS/HR; Start 11/11/16 at 12:30 Acetylcysteine (Nac) 600 mg BID PO Last administered on 11/13/16 08:25; Admin Dose 600 MG; Start 11/12/16 at 11:30 DILLON MARTÍNEZ MD Nov 13, 2016 21:05
[2016-11-14] MEDS: SOD CHLORIDE 0.9% 1,000 ML IV SCH ×2 (03:25→15:07)
[2016-11-14] MEDS ORDERED: PEG/ELECTROLYTES 4L BTL PO ONE (06:30)
[2016-11-14 07:06] VITALS: BP 123/73; RESP 18
[2016-11-14] MEDS: ACETYLCYSTEINE 600 MG CAP PO SCH ×2 (10:26→21:51)
[2016-11-14] MEDS: FAMOTIDINE 20 MG TAB PO SCH (10:26)
--- NOTE | 2016-11-14 14:50 | PN ---
Date/Time of Note Date/Time of Note DATE: 11/14/16 TIME: 14:44 Assessment/Plan VTE Prophylaxis VTE Prophylaxis Intervention: SCD's Lines/Catheters IV Catheter Type (from Nrs): Peripheral IV Urinary Cath still in place: No Assessment/Plan Chief Complaint/Hosp Course Assessment/Plan: 56 F with: 1. Abd pain likely 2/2 pancreatitis: improved 2. Newly diagnosed Malignancy of Ovarian or peritoneal origin 3. Hypochromic anemia 4. Diuretic induced renal insufficiency 5. Mild Pancreatitis: resolved 6. Chronic Hypertension > Mild Asymptomatic Hypotension: also likely 2/2 diuretic therapy for ascites PLAN: re: cancer: Appreciate Dr mcgill review. CT A/P with contrast was done ( see above) since Cr level nL, Surgery tentatively planned for tomorrow continue hydration for now Continue Mucomyst pre and post CT, with IVF's re: Hypotension: continue fluids and monitor / hold all antihypertensives as well Continue supportive care. leave on CLD in preparation for bowel prep tomorrow PROPHYLAXIS: SCDs/ pepcid Problems: Subjective 24 Hr Interval Summary Free Text/Dictation Pt had Ct A/P performed yesterday, no acute events overnight. On [facility] presently Exam/Review of Systems Vital Signs Vitals Vital Signs Date Time Temp Pulse Resp B/P Pulse Ox O2 Delivery O2 Flow Rate FiO2 11/14/16 07:06 98.1 75 18 123/73 98 Intake and Output 11/13/16 11/13/16 11/14/16 15:00 23:00 07:00 Intake Total 1520 ml 1380 ml Balance 1520 ml 1380 ml Exam Constitutional: alert, oriented Psych: anxiety Head: atraumatic, normocephalic Eyes: PERRL ENMT: mucosa pink and moist Neck: supple Respiratory: clear to auscultation, normal air movement Cardiovascular: regular rate and rhythm Gastrointestinal: bowel sounds, soft, non tender, No distended Neurological: nl mental status Results Result Diagram: 11/13/1642111/13/16421 Medications Medications Current Medications Ondansetron HCl (Zofran Tab) 4 mg Q6H PRN PO NAUSEA AND/OR VOMITING; Start 11/09 at 02:00 Metoclopramide HCl (Reglan) 10 mg Q6H PRN IV NAUSEA AND/OR VOMITING; Start 11/09 at 02:00 Acetaminophen (Tylenol Tab) 650 mg Q6H PRN PO PAIN LEVEL 1-3 OR FEVER; Start at 02:00 Acetaminophen/ Hydrocodone Bitart ([place] (5/325)) 1 tab Q6H PRN PO MODERATE PAIN LEVEL 4-6; Start 11/09/16 at 02:00 Acetaminophen/ Hydrocodone Bitart ([place] (5/325)) 2 tab Q6H PRN PO SEVERE PAIN LEVEL 7-10 Last administered on 11/10/16 14:55; Admin Dose 2 TAB; Start 11/09/16 at 02:00 Famotidine 20 mg 20 mg DAILY PO Last administered on 11/14/16 10:26; Admin Dose 20 MG; Start 11/09/16 at 09:00 Sodium Chloride 250 ml @ 250 mls/hr PRN PRN IV SBP <80 Last administered on 00:52; Admin Dose 250 MLS/HR; Start 11/10/16 at 17:30 Sodium Chloride (NS) 1,000 ml @ 100 mls/hr Q10H IV Last administered on 03:25; Admin Dose 100 MLS/HR; Start 11/11/16 at 12:30 Acetylcysteine (Nac) 600 mg BID PO Last administered on 11/14/16 10:26; Admin Dose 600 MG; Start 11/12/16 at 11:[address] A/P (11/13/16): IMPRESSION: 1. Loculated ascites with peritoneal thickening with nodularity worrisome for peritoneal metastasis. 2. Increased soft tissue density in the omentum consistent with omental metastasis. 3. Bilateral complex adnexal masses which may represent an ovarian neoplasm. The possibility of drop metastasis should also be considered. 4. Thickening of the gastric antrum. Consider endoscopic correlation as clinically warranted. 3. Small pleural effusion with a trace right pleural effusion. QUINCY KU Nov 14, 2016 14:50
--- NOTE | 2016-11-14 16:15 | CONS ---
Date/Time of Note Date/Time of Note DATE: 11/14/16 TIME: 16:13 Assessment/Plan Assessment/Plan Chief Complaint/Hosp Course 56 yo female with malignant ascites whose cytology is consistent with primary peritoneal cancer vs ovarian primary. -at this time patient needs follow up with [facility] as she will likely need optimal debulking surgery followed by chemotherapy -per Dr. 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 CT with IV contrast of abd and pel showed loculated ascites, peritoneal mets, omental mets, bilateral adnexal masses; will start bowel prep and tentatively scheduled for surgery tomorrow per Dr. Pierce. -CA 125 536 -f/u final cytology results -s/p paracentesis 11/10/16 for her abdominal distension, with removal of 4.9L -will obtain bilateral LE dopplers to r/o DVT given edema Problems: Consultation Date/Type/Reason Admit Date/Time Nov 09, 2016 at 00:55 Initial Consult Date 11/09/16 Type of Consultation: oncology Referring Provider: JYOTHI BENAVIDES 24 HR Interval Summary Free Text/Dictation Patient states that she is tired on drinking liquids. She has some abdominal pain and is complaining of lower extremity edema. Exam/Review of Systems Vital Signs Vitals Vital Signs Date Time Temp Pulse Resp B/P Pulse Ox O2 Delivery O2 Flow Rate FiO2 11/14/16 07:06 98.1 75 18 123/73 98 Intake and Output 11/13/16 11/13/16 11/14/16 15:00 23:00 07:00 Intake Total 1520 ml 1380 ml Balance 1520 ml 1380 ml Exam Exam Constitutional: alert, oriented Psych: no complaints Head: atraumatic, normocephalic Eyes: nl conjunctiva ENMT: nl external ears & nose Neck: supple Respiratory: clear to auscultation, normal air movement Cardiovascular: regular rate and rhythm Gastrointestinal: ascites, soft Musculoskeletal: nl extremities to inspection, nl gait and stance Extremities: normal pulses Results Result Diagram: 11/13/1642111/13/16421 Medications Medications Current Medications Ondansetron HCl (Zofran Tab) 4 mg Q6H PRN PO NAUSEA AND/OR VOMITING; Start 11/09 at 02:00 Metoclopramide HCl (Reglan) 10 mg Q6H PRN IV NAUSEA AND/OR VOMITING; Start 11/09 at 02:00 Acetaminophen (Tylenol Tab) 650 mg Q6H PRN PO PAIN LEVEL 1-3 OR FEVER; Start at 02:00 Acetaminophen/ Hydrocodone Bitart ([place] (5/325)) 1 tab Q6H PRN PO MODERATE PAIN LEVEL 4-6; Start 11/09/16 at 02:00 Acetaminophen/ Hydrocodone Bitart ([place] (5/325)) 2 tab Q6H PRN PO SEVERE PAIN LEVEL 7-10 Last administered on 11/10/16 14:55; Admin Dose 2 TAB; Start 11/09/16 at 02:00 Famotidine 20 mg 20 mg DAILY PO Last administered on 11/14/16 10:26; Admin Dose 20 MG; Start 11/09/16 at 09:00 Sodium Chloride 250 ml @ 250 mls/hr PRN PRN IV SBP <80 Last administered on 00:52; Admin Dose 250 MLS/HR; Start 11/10/16 at 17:30 Sodium Chloride (NS) 1,000 ml @ 100 mls/hr Q10H IV Last administered on 15:07; Admin Dose 100 MLS/HR; Start 11/11/16 at 12:30 Acetylcysteine (Nac) 600 mg BID PO Last administered on 11/14/16 10:26; Admin Dose 600 MG; Start 11/12/16 at 11:30 MARK PEDROZA MD Nov 14, 2016 16:14
[2016-11-14 19:38] VITALS: BP 128/73; RESP 16
--- NOTE | 2016-11-14 19:58 | PN ---
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 Reiterated surgery anticipated with options and risks/ benefits with family. Subjective 24 Hr Interval Summary Free Text/Dictation S- No n/v but uncomfortable and anxious for procedure; possibly tomorrow pending stable medically and OR availability. Currently tolerating bowel prep . 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 Reiterated surgery anticipated with options and risks/ benefits with family. Exam/Review of Systems Vital Signs Vitals Vital Signs Date Time Temp Pulse Resp B/P Pulse Ox O2 Delivery O2 Flow Rate FiO2 11/14/16 07:06 98.1 75 18 123/73 98 Intake and Output 11/13/16 11/13/16 11/14/16 15:00 23:00 07:00 Intake Total 1520 ml 1380 ml Balance 1520 ml 1380 ml Results Result Diagram: 11/13/16 0422 11/13/16 0422 Medications Medications Current Medications Ondansetron HCl (Zofran Tab) 4 mg Q6H PRN PO NAUSEA AND/OR VOMITING; Start 11/09 at 02:00 Metoclopramide HCl (Reglan) 10 mg Q6H PRN IV NAUSEA AND/OR VOMITING; Start 11/09 at 02:00 Acetaminophen (Tylenol Tab) 650 mg Q6H PRN PO PAIN LEVEL 1-3 OR FEVER; Start at 02:00 Acetaminophen/ Hydrocodone Bitart ([place] (5/325)) 1 tab Q6H PRN PO MODERATE PAIN LEVEL 4-6; Start 11/09/16 at 02:00 Acetaminophen/ Hydrocodone Bitart ([place] (5/325)) 2 tab Q6H PRN PO SEVERE PAIN LEVEL 7-10 Last administered on 11/10/16t 14:55; Admin Dose 2 TAB; Start 11/09/16 at 02:00 Famotidine 20 mg 20 mg DAILY PO Last administered on 11/14/16 10:26; Admin Dose 20 MG; Start 11/09/16 at 09:00 Sodium Chloride 250 ml @ 250 mls/hr PRN PRN IV SBP <80 Last administered on 00:52; Admin Dose 250 MLS/HR; Start 11/10/16 at 17:30 Sodium Chloride (NS) 1,000 ml @ 100 mls/hr Q10H IV Last administered on 15:07; Admin Dose 100 MLS/HR; Start 11/11/16 at 12:30 Acetylcysteine (Nac) 600 mg BID PO Last administered on 11/14/16 10:26; Admin Dose 600 MG; Start 11/12/16 at 11:30 DILLON MARTÍNEZ MD Nov 14, 2016 19:58
[2016-11-14] MEDS: HYDROCODONE/APAP (5/325) TAB PO PRN (22:21)
--- NOTE | 2016-11-14 23:06 | RADRPT ---
PROCEDURE: US Lower extremity Venous. CLINICAL INDICATION: Leg pain and swelling TECHNIQUE: Multiple sonographic images of the bilateral lower extremity deep venous system was obt ained utilizing grayscale, color-flow, compressive sonography and doppler imaging with augmentation. COMPARISON: None. FINDINGS: There is normal compressibility / flow within the bilateral common femoral, femoral and popliteal ve ins. The visualized deep veins of the calf are unremarkable. RPTAT:HJJR IMPRESSION: No sonographic evidence for deep venous thrombosis of either lower extremity. Physician June Date Time Electronically viewed and signed by Physician June on 11/14/2016 23:06 /
[2016-11-14] MEDS: LORAZEPAM 2 MG INJ IV PRN (23:32)
[2016-11-15 03:05] LABS: ADD SCAN DIFF NO
[2016-11-15 03:07] LABS: BASOPHIL # 0.1 10^3/ul (0.0-0.1); BASOPHILS % 0.9 % (0.0-2.0); EOSINOPHILS # 0.1 10^3/ul (0.0-0.5); EOSINOPHILS % 1.6 % (0.0-7.0); HEMATOCRIT 32.7 % (37.0-47.0); HEMOGLOBIN 10.3 g/dl (12.0-16.0); LYMPHOCYTES # 1.8 10^3/ul (0.8-2.9); LYMPHOCYTES % 26.5 % (15.0-51.0); MEAN CORPUSCULAR HEMOGLOBIN 27.8 pg (29.0-33.0); MEAN CORPUSCULAR HGB CONC 31.5 g/dl (32.0-37.0); MEAN CORPUSCULAR VOLUME 88.4 fl (82.0-101.0); MEAN PLATELET VOLUME 8.5 fl (7.4-10.4); MONOCYTE # 0.6 10^3/ul (0.3-0.9); MONOCYTES % 9.2 % (0.0-11.0); NEUTROPHIL # 4.2 10^3/ul (1.6-7.5); NEUTROPHILS % 61.5 % (39.0-77.0); PLATELET COUNT 460 10^3/UL (140-415); RED CELL DISTRIBUTION WIDTH 15.4 % (11.5-14.5); WHITE BLOOD COUNT 6.8 10^3/ul (4.8-10.8)
[2016-11-15 03:27] LABS: INR 1.17; PT RATIO 1.2
[2016-11-15 03:38] LABS: CALCIUM 7.7 mg/dl (8.4-10.2); CREATININE 0.79 mg/dl (0.44-1.00); POTASSIUM 3.8 mmol/L (3.5-5.1)
[2016-11-15] MEDS: SOD CHLORIDE 0.9% 1,000 ML IV SCH ×4 (05:05→18:00)
[2016-11-15 07:32] VITALS: BP 108/70; RESP 20
[2016-11-15] MEDS: FAMOTIDINE 20 MG TAB PO SCH (08:47)
[2016-11-15] MEDS: ACETYLCYSTEINE 600 MG CAP PO SCH ×2 (08:47→20:41)
--- NOTE | 2016-11-15 12:20 | PN ---
Date/Time of Note Date/Time of Note DATE: 11/15/16 TIME: 12:18 Assessment/Plan VTE Prophylaxis VTE Prophylaxis Intervention: SCD's Lines/Catheters IV Catheter Type (from Nrs): Peripheral IV Urinary Cath still in place: No Assessment/Plan Chief Complaint/Hosp Course Assessment/Plan: 56 F with: 1. Abd pain likely 2/2 pancreatitis: improved 2. Newly diagnosed Malignancy of Ovarian or peritoneal origin 3. Hypochromic anemia 4. Diuretic induced renal insufficiency 5. Mild Pancreatitis: resolved 6. Chronic Hypertension > Mild Asymptomatic Hypotension: also likely 2/2 diuretic therapy for ascites PLAN: re: cancer: Appreciate Dr mcgill review. CT A/P with contrast was done ( see above) since Cr level nL, Surgery tentatively planned for today, f/u results. continue hydration for now Continue Mucomyst pre and post CT, with IVF's re: Hypotension: continue fluids and monitor / hold all antihypertensives as well Continue supportive care. PROPHYLAXIS: SCDs/ pepcid Problems: Subjective 24 Hr Interval Summary Free Text/Dictation Pt tentatively scheduled for surgery today. No acute events overnight. Exam/Review of Systems Vital Signs Vitals Vital Signs Date Time Temp Pulse Resp B/P Pulse Ox O2 Delivery O2 Flow Rate FiO2 11/15/16 07:32 97.4 82 20 108/70 94 Intake and Output 11/14/16 11/14/16 11/15/16 15:00 23:00 07:00 Intake Total 440 ml 1300 ml Balance 440 ml 1300 ml Exam Constitutional: alert, oriented Psych: anxiety Head: atraumatic, normocephalic Eyes: PERRL ENMT: mucosa pink and moist Neck: supple Respiratory: clear to auscultation, normal air movement Cardiovascular: regular rate and rhythm Gastrointestinal: bowel sounds, soft, non tender, No distended Neurological: nl mental status Results Result Diagram: 11/15/16 0300 11/15/16 0300 Results 24 hrs Laboratory Tests Test 11/15/16 03:00 White Blood Count 6.8 # Red Blood Count 3.70 L Hemoglobin 10.3 L Hematocrit 32.7 L Mean Corpuscular Volume 88.4 Mean Corpuscular Hemoglobin 27.8 L Mean Corpuscular Hemoglobin Concent 31.5 L Red Cell Distribution Width 15.4 H Platelet Count 460 H Mean Platelet Volume 8.5 Neutrophils % 61.5 Lymphocytes % 26.5 Monocytes % 9.2 Eosinophils % 1.6 Basophils % 0.9 Nucleated Red Blood Cells % 0.0 Neutrophils # 4.2 Lymphocytes # 1.8 Monocytes # 0.6 Eosinophils # 0.1 Basophils # 0.1 Nucleated Red Blood Cells # 0.0 Prothrombin Time 15.0 H Prothrombin Time Ratio 1.2 INR International Normalized Ratio 1.17 Sodium Level 133 L Potassium Level 3.8 Chloride Level 108 Carbon Dioxide Level 19 L Anion Gap 10 Blood Urea Nitrogen 11 Creatinine 0.79 Glucose Level 87 Calcium Level 7.7 L Medications Medications Current Medications Ondansetron HCl (Zofran Tab) 4 mg Q6H PRN PO NAUSEA AND/OR VOMITING; Start 11/09 at 02:00 Metoclopramide HCl (Reglan) 10 mg Q6H PRN IV NAUSEA AND/OR VOMITING; Start 11/09 at 02:00 Acetaminophen (Tylenol Tab) 650 mg Q6H PRN PO PAIN LEVEL 1-3 OR FEVER; Start at 02:00 Acetaminophen/ Hydrocodone Bitart ([place] (5/325)) 1 tab Q6H PRN PO MODERATE PAIN LEVEL 4-6 Last administered on 11/14/16 22:21; Admin Dose 1 TAB; Start 11/09/16 at 02:00 Acetaminophen/ Hydrocodone Bitart ([place] (5/325)) 2 tab Q6H PRN PO SEVERE PAIN LEVEL 7-10 Last administered on 11/10/16 14:55; Admin Dose 2 TAB; Start 11/09/16 at 02:00 Famotidine 20 mg 20 mg DAILY PO Last administered on 11/14/16 10:26; Admin Dose 20 MG; Start 11/09/16 at 09:00 Sodium Chloride 250 ml @ 250 mls/hr PRN PRN IV SBP <80 Last administered on 00:52; Admin Dose 250 MLS/HR; Start 11/10/16 at 17:30 Sodium Chloride (NS) 1,000 ml @ 100 mls/hr Q10H IV Last administered on 05:54; Admin Dose 100 MLS/HR; Start 11/11/16 at 12:30 Acetylcysteine (Nac) 600 mg BID PO Last administered on 11/14/16 21:51; Admin Dose 600 MG; Start 11/12/16 at 11:30 Lorazepam (Ativan) 1 mg Q4H PRN IV ANXIETY Last administered on 11/14/16t 23:32 ; Admin Dose 1 MG; Start 11/14/16 at 23:30 QUINCY KU Nov 15, 2016 12:20
--- NOTE | 2016-11-15 18:08 | PN ---
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 Sunday as today likely to have incision time at about 9 or 9:30; not appropriate given services available at hospital unless absolute emergency given that case may be 2-5 hours. MUST keep on clear liq and hydrated since bowel prepped; discussed with interpretation from my office bilingual Subjective 24 Hr Interval Summary Free Text/Dictation S- Anxious as surgery cancelled due to no OR time available. 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 Sunday as today likely to have incision time at about 9 or 9:30; not appropriate given services available at hospital unless absolute emergency given that case may be 2-5 hours. MUST keep on clear liq and hydrated since bowel prepped; discussed with interpretation from my office bilingual Exam/Review of Systems Vital Signs Vitals Vital Signs Date Time Temp Pulse Resp B/P Pulse Ox O2 Delivery O2 Flow Rate FiO2 11/15/16 07:32 97.4 82 20 108/70 94 Intake and Output 11/14/16 11/14/16 11/15/16 15:00 23:00 07:00 Intake Total 440 ml 1300 ml Balance 440 ml 1300 ml Results Result Diagram: 11/15/16 0300 11/15/16 0300 Results 24 hrs Laboratory Tests Test 11/15/16 03:00 White Blood Count 6.8 # Red Blood Count 3.70 L Hemoglobin 10.3 L Hematocrit 32.7 L Mean Corpuscular Volume 88.4 Mean Corpuscular Hemoglobin 27.8 L Mean Corpuscular Hemoglobin Concent 31.5 L Red Cell Distribution Width 15.4 H Platelet Count 460 H Mean Platelet Volume 8.5 Neutrophils % 61.5 Lymphocytes % 26.5 Monocytes % 9.2 Eosinophils % 1.6 Basophils % 0.9 Nucleated Red Blood Cells % 0.0 Neutrophils # 4.2 Lymphocytes # 1.8 Monocytes # 0.6 Eosinophils # 0.1 Basophils # 0.1 Nucleated Red Blood Cells # 0.0 Prothrombin Time 15.0 H Prothrombin Time Ratio 1.2 INR International Normalized Ratio 1.17 Sodium Level 133 L Potassium Level 3.8 Chloride Level 108 Carbon Dioxide Level 19 L Anion Gap 10 Blood Urea Nitrogen 11 Creatinine 0.79 Glucose Level 87 Calcium Level 7.7 L Medications Medications Current Medications Ondansetron HCl (Zofran Tab) 4 mg Q6H PRN PO NAUSEA AND/OR VOMITING; Start 11/09 at 02:00 Metoclopramide HCl (Reglan) 10 mg Q6H PRN IV NAUSEA AND/OR VOMITING; Start 11/09 at 02:00 Acetaminophen (Tylenol Tab) 650 mg Q6H PRN PO PAIN LEVEL 1-3 OR FEVER; Start at 02:00 Acetaminophen/ Hydrocodone Bitart ([place] (5/325)) 1 tab Q6H PRN PO MODERATE PAIN LEVEL 4-6 Last administered on 11/14/16 22:21; Admin Dose 1 TAB; Start 11/09/16 at 02:00 Acetaminophen/ Hydrocodone Bitart ([place] (5/325)) 2 tab Q6H PRN PO SEVERE PAIN LEVEL 7-10 Last administered on 11/10/16 14:55; Admin Dose 2 TAB; Start 11/09/16 at 02:00 Famotidine 20 mg 20 mg DAILY PO Last administered on 11/14/16 10:26; Admin Dose 20 MG; Start 11/09/16 at 09:00 Sodium Chloride 250 ml @ 250 mls/hr PRN PRN IV SBP <80 Last administered on 00:52; Admin Dose 250 MLS/HR; Start 11/10/16 at 17:30 Sodium Chloride (NS) 1,000 ml @ 100 mls/hr Q10H IV Last administered on 05:54; Admin Dose 100 MLS/HR; Start 11/11/16 at 12:30 Acetylcysteine (Nac) 600 mg BID PO Last administered on 11/14/16 21:51; Admin Dose 600 MG; Start 11/12/16 at 11:30 Lorazepam (Ativan) 1 mg Q4H PRN IV ANXIETY Last administered on 11/14/16 23:32 ; Admin Dose 1 MG; Start 11/14/16 at 23:30 DILLON MARTÍNEZ MD Nov 15, 2016 18:08
[2016-11-15 20:05] VITALS: BP 118/57; RESP 18
[2016-11-16] MEDS: SOD CHLORIDE 0.9% 1,000 ML IV SCH ×3 (02:20→22:09)
[2016-11-16 05:28] LABS: ADD SCAN DIFF NO
[2016-11-16 05:54] LABS: CALCIUM 7.5 mg/dl (8.4-10.2); CREATININE 0.7 mg/dl (0.44-1.00); POTASSIUM 3.7 mmol/L (3.5-5.1)
[2016-11-16 08:04] LABS: BASOPHIL # 0.1 10^3/ul (0.0-0.1); BASOPHILS % 0.8 % (0.0-2.0); EOSINOPHILS # 0.1 10^3/ul (0.0-0.5); EOSINOPHILS % 1.3 % (0.0-7.0); HEMATOCRIT 33.9 % (37.0-47.0); HEMOGLOBIN 10.8 g/dl (12.0-16.0); LYMPHOCYTES # 1.6 10^3/ul (0.8-2.9); LYMPHOCYTES % 21.7 % (15.0-51.0); MEAN CORPUSCULAR HGB CONC 31.9 g/dl (32.0-37.0); MEAN CORPUSCULAR VOLUME 87.8 fl (82.0-101.0); MEAN PLATELET VOLUME 8.6 fl (7.4-10.4); MONOCYTE # 0.7 10^3/ul (0.3-0.9); MONOCYTES % 8.8 % (0.0-11.0); NEUTROPHILS % 66.9 % (39.0-77.0); PLATELET COUNT 493 10^3/UL (140-415); RED BLOOD COUNT 3.86 10^6/ul (4.20-5.40); RED CELL DISTRIBUTION WIDTH 15.7 % (11.5-14.5); WHITE BLOOD COUNT 7.5 10^3/ul (4.8-10.8)
[2016-11-16 08:19] VITALS: BP 122/69; RESP 18
[2016-11-16] MEDS: FAMOTIDINE 20 MG TAB PO SCH ×2 (08:19→21:15)
[2016-11-16] MEDS: ACETYLCYSTEINE 600 MG CAP PO SCH ×2 (08:19→20:23)
[2016-11-16] MEDS: HYDROCODONE/APAP (5/325) TAB PO PRN (11:27)
--- NOTE | 2016-11-16 14:07 | PN ---
Date/Time of Note Date/Time of Note DATE: 11/16/16 TIME: 14:05 Assessment/Plan VTE Prophylaxis VTE Prophylaxis Intervention: SCD's Lines/Catheters IV C[facility] Type (from [facility]): Peripheral IV Urinary Cath still in place: No Assessment/Plan Chief Complaint/Hosp Course Assessment/Plan: 56 F with: 1. Abd pain likely 2/2 pancreatitis: improved 2. Newly diagnosed Malignancy of Ovarian or peritoneal origin 3. Hypochromic anemia 4. Diuretic induced renal insufficiency 5. Mild Pancreatitis: resolved 6. Chronic Hypertension > Mild Asymptomatic Hypotension: also likely 2/2 diuretic therapy for ascites PLAN: re: cancer: Appreciate Dr mcgill review. CT A/P with contrast was done ( see above) since Cr level nL, Surgery tentatively planned for tomorrow, continue CLD for now, f/u results. continue hydration for now Continue Mucomyst pre and post CT, with IVF's re: Hypotension: continue fluids and monitor / hold all antihypertensives as well Continue supportive care. PROPHYLAXIS: SCDs/ pepcid Problems: Subjective 24 Hr Interval Summary Free Text/Dictation Pt had no acute events overnight. On CLD. Surgery delayed until tomorrow. Exam/Review of Systems Vital Signs Vitals Vital Signs Date Time Temp Pulse Resp B/P Pulse Ox O2 Delivery O2 Flow Rate FiO2 11/16/16 08:19 97.7 80 18 122/69 98 Intake and Output 11/15/16 11/15/16 11/16/16 15:00 23:00 07:00 Intake Total 1440 ml 1250 ml Balance 1440 ml 1250 ml Exam Constitutional: alert, oriented Psych: anxiety Head: atraumatic, normocephalic Eyes: PERRL ENMT: mucosa pink and moist Neck: supple Respiratory: clear to auscultation, normal air movement Cardiovascular: regular rate and rhythm Gastrointestinal: bowel sounds, soft, non tender, No distended Neurological: nl mental status Results Result Diagram: 11/16/16 0415 11/16/16 0415 Results 24 hrs Laboratory Tests Test 11/16/16 04:15 White Blood Count 7.5 Red Blood Count 3.86 L Hemoglobin 10.8 L Hematocrit 33.9 L Mean Corpuscular Volume 87.8 Mean Corpuscular Hemoglobin 28.0 L Mean Corpuscular Hemoglobin Concent 31.9 L Red Cell Distribution Width 15.7 H Platelet Count 493 H Mean Platelet Volume 8.6 Neutrophils % 66.9 Lymphocytes % 21.7 Monocytes % 8.8 Eosinophils % 1.3 Basophils % 0.8 Nucleated Red Blood Cells % 0.0 Neutrophils # 5.0 Lymphocytes # 1.6 Monocytes # 0.7 Eosinophils # 0.1 Basophils # 0.1 Nucleated Red Blood Cells # 0.0 Sodium Level 132 L Potassium Level 3.7 Chloride Level 110 Carbon Dioxide Level 18 L Anion Gap 8 Blood Urea Nitrogen 9 Creatinine 0.70 Glucose Level 75 Calcium Level 7.5 L Medications Medications Current Medications Ondansetron HCl (Zofran Tab) 4 mg Q6H PRN PO NAUSEA AND/OR VOMITING; Start 11/09 at 02:00 Metoclopramide HCl (Reglan) 10 mg Q6H PRN IV NAUSEA AND/OR VOMITING; Start 11/09 at 02:00 Acetaminophen (Tylenol Tab) 650 mg Q6H PRN PO PAIN LEVEL 1-3 OR FEVER; Start at 02:00 Acetaminophen/ Hydrocodone Bitart ([place] (5/325)) 1 tab Q6H PRN PO MODERATE PAIN LEVEL 4-6 Last administered on 11/16/16 11:27; Admin Dose 1 TAB; Start 11/09/16 at 02:00 Acetaminophen/ Hydrocodone Bitart ([place] (5/325)) 2 tab Q6H PRN PO SEVERE PAIN LEVEL 7-10 Last administered on 11/10/16 14:55; Admin Dose 2 TAB; Start 11/09/16 at 02:00 Famotidine 20 mg 20 mg DAILY PO Last administered on 11/16/16 08:19; Admin Dose 20 MG; Start 11/09/16 at 09:00 Sodium Chloride 250 ml @ 250 mls/hr PRN PRN IV SBP <80 Last administered on 00:52; Admin Dose 250 MLS/HR; Start 11/10/16 at 17:30 Sodium Chloride (NS) 1,000 ml @ 100 mls/hr Q10H IV Last administered on 12:20; Admin Dose 100 MLS/HR; Start 11/11/16 at 12:30 Acetylcysteine (Nac) 600 mg BID PO Last administered on 11/16/16 08:19; Admin Dose 600 MG; Start 11/12/16 at 11:30 Lorazepam (Ativan) 1 mg Q4H PRN IV ANXIETY Last administered on 11/14/16t 23:32 ; Admin Dose 1 MG; Start 11/14/16 at 23:30 QUINCY KU Nov 16, 2016 14:07
--- NOTE | 2016-11-16 14:28 | CONS ---
Date/Time of Note Date/Time of Note DATE: 11/16/16 TIME: 14:18 Assessment/Plan Assessment/Plan Chief Complaint/Hosp Course 56 yo female with malignant ascites whose cytology is consistent with primary peritoneal cancer vs ovarian primary. -at this time patient needs follow up with [facility] as she will likely need optimal debulking surgery followed by chemotherapy -per Dr. 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 CT with IV contrast of abd and pel showed loculated ascites, peritoneal mets, omental mets, bilateral adnexal masses; will start bowel prep and tentatively scheduled for surgery tomorrow per Dr. Pierce. -CA 125 536 -f/u final cytology results -s/p paracentesis 11/10/16 for her abdominal distension, with removal of 4.9L -bilateral LE dopplers neg for DVT Problems: Consultation Date/Type/Reason Admit Date/Time Nov 09, 2016 at 00:55 Initial Consult Date 11/09/16 Type of Consultation: Oncology Referring Provider: JYOTHI BENAVIDES 24 HR Interval Summary Free Text/Dictation Patient doing well, denies pain. Exam/Review of Systems Vital Signs Vitals Vital Signs Date Time Temp Pulse Resp B/P Pulse Ox O2 Delivery O2 Flow Rate FiO2 11/16/16 08:19 97.7 80 18 122/69 98 Intake and Output 11/15/16 11/15/16 11/16/16 15:00 23:00 07:00 Intake Total 1440 ml 1250 ml Balance 1440 ml 1250 ml Exam Constitutional: alert, oriented Psych: no complaints Head: atraumatic, normocephalic Eyes: nl conjunctiva ENMT: nl external ears & nose Neck: supple Respiratory: clear to auscultation, normal air movement Cardiovascular: regular rate and rhythm Gastrointestinal: ascites, soft Musculoskeletal: nl extremities to inspection, nl gait and stance Extremities: normal pulses Results Result Diagram: 11/16/16 0415 11/16/16 0415 Results 24 hrs Laboratory Tests Test 11/16/16 04:15 White Blood Count 7.5 Red Blood Count 3.86 L Hemoglobin 10.8 L Hematocrit 33.9 L Mean Corpuscular Volume 87.8 Mean Corpuscular Hemoglobin 28.0 L Mean Corpuscular Hemoglobin Concent 31.9 L Red Cell Distribution Width 15.7 H Platelet Count 493 H Mean Platelet Volume 8.6 Neutrophils % 66.9 Lymphocytes % 21.7 Monocytes % 8.8 Eosinophils % 1.3 Basophils % 0.8 Nucleated Red Blood Cells % 0.0 Neutrophils # 5.0 Lymphocytes # 1.6 Monocytes # 0.7 Eosinophils # 0.1 Basophils # 0.1 Nucleated Red Blood Cells # 0.0 Sodium Level 132 L Potassium Level 3.7 Chloride Level 110 Carbon Dioxide Level 18 L Anion Gap 8 Blood Urea Nitrogen 9 Creatinine 0.70 Glucose Level 75 Calcium Level 7.5 L Medications Medications Current Medications Ondansetron HCl (Zofran Tab) 4 mg Q6H PRN PO NAUSEA AND/OR VOMITING; Start 11/09 at 02:00 Metoclopramide HCl (Reglan) 10 mg Q6H PRN IV NAUSEA AND/OR VOMITING; Start 11/09 at 02:00 Acetaminophen (Tylenol Tab) 650 mg Q6H PRN PO PAIN LEVEL 1-3 OR FEVER; Start at 02:00 Acetaminophen/ Hydrocodone Bitart ([place] (5/325)) 1 tab Q6H PRN PO MODERATE PAIN LEVEL 4-6 Last administered on 11/16/16 11:27; Admin Dose 1 TAB; Start 11/09/16 at 02:00 Acetaminophen/ Hydrocodone Bitart ([place] (5/325)) 2 tab Q6H PRN PO SEVERE PAIN LEVEL 7-10 Last administered on 11/10/16 14:55; Admin Dose 2 TAB; Start 11/09/16 at 02:00 Famotidine 20 mg 20 mg DAILY PO Last administered on 11/16/16 08:19; Admin Dose 20 MG; Start 11/09/16 at 09:00 Sodium Chloride 250 ml @ 250 mls/hr PRN PRN IV SBP <80 Last administered on 00:52; Admin Dose 250 MLS/HR; Start 11/10/16 at 17:30 Sodium Chloride (NS) 1,000 ml @ 100 mls/hr Q10H IV Last administered on 12:20; Admin Dose 100 MLS/HR; Start 11/11/16 at 12:30 Acetylcysteine (Nac) 600 mg BID PO Last administered on 11/16/16 08:19; Admin Dose 600 MG; Start 11/12/16 at 11:30 Lorazepam (Ativan) 1 mg Q4H PRN IV ANXIETY Last administered on 11/14/16t 23:32 ; Admin Dose 1 MG; Start 11/14/16 at 23:30 TOMARK MD Nov 16, 2016 14:27
[2016-11-16 20:00] VITALS: BP 110/70; RESP 18
[2016-11-16] MEDS: AL HYDROX/MG HYDROX/SIMETH 30 ML CUP PO PRN (21:15)
[2016-11-16] MEDS ORDERED: PHYTONADIONE 10 MG/ML INJ IM ONE (21:30)
[2016-11-17] VITALS (43 sets, daily range): BP systolic 74–134; BP diastolic 58–102; PULSE 80–124; RESP 12–18
[2016-11-17 05:33] LABS: ADD SCAN DIFF NO
[2016-11-17 05:51] LABS: BASOPHIL # 0.1 10^3/ul (0.0-0.1); BASOPHILS % 0.7 % (0.0-2.0); EOSINOPHILS # 0.1 10^3/ul (0.0-0.5); EOSINOPHILS % 0.7 % (0.0-7.0); HEMATOCRIT 35.8 % (37.0-47.0); LYMPHOCYTES # 1.9 10^3/ul (0.8-2.9); LYMPHOCYTES % 23.2 % (15.0-51.0); MEAN CORPUSCULAR HEMOGLOBIN 27.6 pg (29.0-33.0); MEAN CORPUSCULAR HGB CONC 30.7 g/dl (32.0-37.0); MEAN CORPUSCULAR VOLUME 89.9 fl (82.0-101.0); MEAN PLATELET VOLUME 8.9 fl (7.4-10.4); MONOCYTE # 0.7 10^3/ul (0.3-0.9); MONOCYTES % 8.1 % (0.0-11.0); NEUTROPHIL # 5.5 10^3/ul (1.6-7.5); NEUTROPHILS % 67.1 % (39.0-77.0); PLATELET COUNT 508 10^3/UL (140-415); POTASSIUM 4.4 mmol/L (3.5-5.1); RED BLOOD COUNT 3.98 10^6/ul (4.20-5.40); RED CELL DISTRIBUTION WIDTH 15.8 % (11.5-14.5); WHITE BLOOD COUNT 8.2 10^3/ul (4.8-10.8)
[2016-11-17 05:53] LABS: CREATININE 0.87 mg/dl (0.44-1.00)
[2016-11-17 05:54] LABS: CALCIUM 8.2 mg/dl (8.4-10.2)
[2016-11-17] MEDS: SOD CHLORIDE 0.9% 1,000 ML IV SCH (07:05)
[2016-11-17] MEDS ORDERED: VASOPRESSIN 20 UNITS INJ ONE (07:51)
[2016-11-17] MEDS ORDERED: METHYLENE BLUE 1% 10 ML INJ ONE (07:51)
[2016-11-17] MEDS ORDERED: morphine SULFATE/PF (10 MG/10 ML) INJ ONE (08:12)
[2016-11-17] MEDS ORDERED: FENTAnyl 50 MCG/ML VIAL ONE (08:12)
[2016-11-17] MEDS ORDERED: MIDAZOLAM 1 MG/ML 2 ML INJ ONE (08:12)
[2016-11-17] MEDS: FAMOTIDINE 20 MG TAB PO SCH ×2 (08:16→20:52)
[2016-11-17] MEDS: ACETYLCYSTEINE 600 MG CAP PO SCH ×2 (08:16→20:52)
[2016-11-17] MEDS ORDERED: PHENYLephrine (100 MCG/ML) 5ML SYG ONE ×4 (08:29→12:12)
[2016-11-17] MEDS ORDERED: EPHEDrine SULFATE 50 MG/5 ML SYG IV PRN ×2 (11:00→13:30)
[2016-11-17] MEDS ORDERED: NALOXONE (0.4 MG/ML) INJ IV PRN (11:00)
[2016-11-17] MEDS ORDERED: HYDROmorphONE (0.2 MG/ML) 10ML SYG IV PRN ×2 (11:00)
[2016-11-17] MEDS ORDERED: ONDANSETRON 4 MG INJ IV PRN ×2 (11:00→13:30)
[2016-11-17] MEDS ORDERED: MEPERIDINE 25 MG INJ IV PRN (11:00)
[2016-11-17] MEDS ORDERED: DIPHENHYDRAMINE 50 MG INJ IV PRN ×2 (11:00→13:30)
[2016-11-17] MEDS ORDERED: FENTAnyl 50 MCG/ML VIAL IV PRN (11:00)
[2016-11-17] MEDS ORDERED: DIPHENHYDRAMINE 50 MG INJ ONE (11:13)
[2016-11-17] MEDS ORDERED: FUROSEMIDE 20 MG INJ ONE (11:36)
--- NOTE | 2016-11-17 12:02 | PN ---
Date/Time of Note Date/Time of Note DATE: 11/17/16 TIME: 11:59 Assessment/Plan VTE Prophylaxis VTE Prophylaxis Intervention: SCD's Lines/Catheters IV [facility] Type ([facility] Peripheral IV Urinary Cath still in place: No Assessment/Plan Chief Complaint/Hosp Course Assessment/Plan: 56 F with: 1. Abd pain likely 2/2 pancreatitis: improved 2. Newly diagnosed Malignancy of Ovarian or peritoneal origin 3. Hypochromic anemia 4. Diuretic induced renal insufficiency 5. Mild Pancreatitis: resolved 6. Chronic Hypertension > Mild Asymptomatic Hypotension: also likely 2/2 diuretic therapy for ascites PLAN: re: cancer: Appreciate Dr Pierce review. CT A/P with contrast was done ( see above) since Cr level nL, Surgery for today (TRACY/BSO planned) f/u post-op rec's Continue Mucomyst pre and post CT, with IVF's re: Hypotension: continue fluids and monitor / hold all antihypertensives as well Continue supportive care. PROPHYLAXIS: SCDs/ pepcid Problems: Subjective 24 Hr Interval Summary Free Text/Dictation Pt had some acid reflux last night, and now at surgery presently. Exam/Review of Systems Vital Signs Vitals Vital Signs Date Time Temp Pulse Resp B/P Pulse Ox O2 Delivery O2 Flow Rate FiO2 11/17/16 07:05 97.4 124 119/75 98 Room Air 11/17/16 06:45 18 Intake and Output 11/16/16 11/16/16 11/17/16 15:00 23:00 07:00 Intake Total 700 ml 2300 ml 1650 ml Balance 700 ml 2300 ml 1650 ml Exam PE: - unable to be performed today b/c pt off floor at surgery presently Results Result Diagram: 11/17/16 0432 11/17/16 0432 Results 24 hrs Laboratory Tests Test 11/17/16 04:32 White Blood Count 8.2 Red Blood Count 3.98 L Hemoglobin 11.0 L Hematocrit 35.8 L Mean Corpuscular Volume 89.9 Mean Corpuscular Hemoglobin 27.6 L Mean Corpuscular Hemoglobin Concent 30.7 L Red Cell Distribution Width 15.8 H Platelet Count 508 H Mean Platelet Volume 8.9 Neutrophils % 67.1 Lymphocytes % 23.2 Monocytes % 8.1 Eosinophils % 0.7 Basophils % 0.7 Nucleated Red Blood Cells % 0.0 Neutrophils # 5.5 Lymphocytes # 1.9 Monocytes # 0.7 Eosinophils # 0.1 Basophils # 0.1 Nucleated Red Blood Cells # 0.0 Sodium Level 135 Potassium Level 4.4 Chloride Level 108 Carbon Dioxide Level 18 L Anion Gap 13 Blood Urea Nitrogen 10 Creatinine 0.87 Glucose Level 67 L Calcium Level 8.2 L Medications Medications Current Medications Ondansetron HCl (Zofran Tab) 4 mg Q6H PRN PO NAUSEA AND/OR VOMITING; Start 11/09 at 02:00 Metoclopramide HCl (Reglan) 10 mg Q6H PRN IV NAUSEA AND/OR VOMITING Last administered on 11/16/16 21:15; Admin Dose 10 MG; Start 11/09/16 at 02:00 Acetaminophen (Tylenol Tab) 650 mg Q6H PRN PO PAIN LEVEL 1-3 OR FEVER; Start at 02:00 Acetaminophen/ Hydrocodone Bitart ([place] (5/325)) 1 tab Q6H PRN PO MODERATE PAIN LEVEL 4-6 Last administered on 11/16/16 11:27; Admin Dose 1 TAB; Start 11/09/16 at 02:00 Acetaminophen/ Hydrocodone Bitart 2 tab 2 tab Q6H PRN PO SEVERE PAIN LEVEL 7- 10 Last administered on 11/10/16 14:55; Admin Dose 2 TAB; Start 11/09/16 at 02:00 Sodium Chloride 250 ml @ 250 mls/hr PRN PRN IV SBP <80 Last administered on 00:52; Admin Dose 250 MLS/HR; Start 11/10/16 at 17:30 Sodium Chloride (NS) 1,000 ml @ 100 mls/hr Q10H IV Last administered on 22:09; Admin Dose 100 MLS/HR; Start 11/11/16 at 12:30 Acetylcysteine (Nac) 600 mg BID PO Last administered on 11/16/16 20:23; Admin Dose 600 MG; Start 11/12/16 at 11:30 Lorazepam (Ativan) 1 mg Q4H PRN IV ANXIETY Last administered on 11/14/16 23:32 ; Admin Dose 1 MG; Start 11/14/16 at 23:30 Famotidine (Pepcid) 20 mg BID PO Last administered on 4/13/17at 21:15; Admin Dose 20 MG; Start 11/16/16 at 21:30 Al Hydrox/Mg Hydrox/Simethicone (Mag-Al Plus) 30 ml Q6H PRN PO GASTROINTESTINAL UPSET Last administered on 11/16/16t 21:15; Admin Dose 30 ML; Start 11/16/16 at 21:30 Naloxone HCl (Narcan) 0.2 mg Q2M PRN IV FOR RESP RATE 8 OR LESS; Start at 11:00; Stop 11/18/16 at 08:20 QUINCY KU Nov 17, 2016 12:02
[2016-11-17] MEDS ORDERED: LIDOCAINE 2% (SDV) 5 ML INJ ONE (12:12)
[2016-11-17] MEDS ORDERED: ETOMIDATE 20 MG INJ ONE (12:12)
[2016-11-17] MEDS ORDERED: ROCURONIUM 50 MG INJ ONE (12:12)
[2016-11-17] MEDS ORDERED: GLYCOPYRROLATE 0.4 MG INJ ONE (12:15)
[2016-11-17] MEDS ORDERED: NEOSTIGMINE 3 MG/3 ML SYRINGE ONE (12:15)
[2016-11-17] MEDS ORDERED: ONDANSETRON 4 MG INJ ONE (12:16)
[2016-11-17] MEDS ORDERED: ALBUMIN HUMAN 5% 250 ML IV PRN (13:30)
[2016-11-17] MEDS ORDERED: LABETALOL HCL 20MG INJ IV PRN (13:30)
[2016-11-17] MEDS ORDERED: morphine 4 MG/ML VIAL IV PRN (13:30)
[2016-11-17] MEDS ORDERED: hydrALAzine 20 MG INJ IV PRN (13:30)
[2016-11-17] MEDS ORDERED: morphine 2 MG INJ IV PRN (13:30)
[2016-11-17] MEDS ORDERED: SOD CHLORIDE 0.9% 250 ML IV ONE (14:30)
[2016-11-17] MEDS ORDERED: POTASSIUM CHLORIDE 20 MEQ in LACTATED RINGER'S 1,000 ML IV SCH (15:00)
[2016-11-17 15:01] LABS: ADD SCAN DIFF NO
[2016-11-17 15:04] LABS: BASOPHIL # 0.1 10^3/ul (0.0-0.1); BASOPHILS % 0.3 % (0.0-2.0); EOSINOPHILS % 0.1 % (0.0-7.0); HEMATOCRIT 36.4 % (37.0-47.0); HEMOGLOBIN 11.8 g/dl (12.0-16.0); LYMPHOCYTES # 1.3 10^3/ul (0.8-2.9); LYMPHOCYTES % 9.1 % (15.0-51.0); MEAN CORPUSCULAR HEMOGLOBIN 28.6 pg (29.0-33.0); MEAN CORPUSCULAR HGB CONC 32.4 g/dl (32.0-37.0); MEAN CORPUSCULAR VOLUME 88.1 fl (82.0-101.0); MEAN PLATELET VOLUME 8.5 fl (7.4-10.4); MONOCYTE # 0.9 10^3/ul (0.3-0.9); MONOCYTES % 5.8 % (0.0-11.0); NEUTROPHIL # 12.4 10^3/ul (1.6-7.5); NEUTROPHILS % 83.9 % (39.0-77.0); PLATELET COUNT 291 10^3/UL (140-415); RED BLOOD COUNT 4.13 10^6/ul (4.20-5.40); RED CELL DISTRIBUTION WIDTH 15.7 % (11.5-14.5); WHITE BLOOD COUNT 14.8 10^3/ul (4.8-10.8)
[2016-11-17] MEDS ORDERED: PHENYLephrine 20MG IN 250 ML 250 ML ONE ×2 (15:09→17:38)
[2016-11-17 15:15] LABS: POTASSIUM 3.2 mmol/L (3.5-5.1)
[2016-11-17] MEDS: PHENYLephrine 40 MG in DEXTROSE 5% 496 ML IV SCH ×3 (15:15→20:52)
[2016-11-17 15:18] LABS: CREATININE 0.72 mg/dl (0.44-1.00)
[2016-11-17 15:19] LABS: CALCIUM 7.4 mg/dl (8.4-10.2)
[2016-11-17] MEDS ORDERED: DEXTROSE 50% 50 ML SYRINGE ONE (15:20)
[2016-11-17 15:26] LABS: INR 1.47; PROTIME 17.9 Sec (12.2-14.2); PT RATIO 1.4
[2016-11-17] MEDS ORDERED: VANCOMYCIN IV PER PHARMACY XX SCH (15:30)
[2016-11-17] MEDS ORDERED: DEXTROSE 5%-0.9% NACL 1,000 ML IV SCH (15:30)
[2016-11-17] MEDS ORDERED: DEXTROSE 50% 50 ML SYRINGE IV PRN (15:30)
[2016-11-17 15:39] LABS: AADO2 Arterial 582.1 mmHg (7.0-24.0); Allen Test ACCEPTAB; Arterial COHb 0.3 % (0.0-3.0); Arterial HCO3 12.6 mmol/L (22.0-26.0); Arterial MetHb 0.5 % (0.0-1.5); Arterial Total Hemglobin 11.5 g/dl (12.0-18.0); MODE VENT - AC
[2016-11-17] MEDS ORDERED: NA BICARBONATE 8.4% 50 ML SYG ONE (15:49)
[2016-11-17] MEDS ORDERED: NA BICARBONATE 8.4% 50 ML SYG IV STA (15:51)
--- NOTE | 2016-11-17 15:57 | CONS ---
Date/Time of Note Date/Time of Note DATE: 11/17/16 TIME: 15:53 Assessment/Plan Assessment/Plan Additional Assessment/Plan Current ventilator settings; AC of 14, tidal volume 5 oh, PEEP of 5, 100% FiO2. Chest x-ray is pending. Assessment recommendations; next 1. Patient admitted for ascites discovered to have ovarian malignancy with peritoneal metastasis. Status post tumor debulking. 2. Large volume ascites also was discovered patient had 5 L of fluid removed. 3. Mild postop hypotension currently resolving now patient on high-dose phenylephrine drip. 4. Metabolic acidosis. 5. Possibly underlying sepsis as well. Continue current ventilator settings. Give patient additional sodium bicarb and start sodium bicarb drip at 100 mL/h in D5W. obtain follow-up chest x-ray. Wean down FiO2 to keep O2 sat around 92-94%. Wean down pressure support to keep MAP of around 70. Consultation Date/Type/Reason Admit Date/Time Nov 09, 2016 at 00:55 Date of Consultation: Nov 17, 2016 Type of Consultation: Pulmonary/critical care Reason for Consultation Pulmonary consultation requested for evaluation of respiratory failure, postop History presenting; patient is a 56-year-old lady who was admitted the sixth of this month after she was called to the hospital because of malignant cells found in the ascites fluid as the patient underwent a paracentesis 5 days prior to being called in. Patient underwent phlebotomy today and peritoneal metastases were discovered with ovarian cancer. Patient has been intubated and could not be extubated immediately postop. Patient also became mildly hypotensive postoperatively by the time I saw the patient blood pressure has stabilized patient currently on high-dose phenylephrine drip. She is awake and did not appear to be in any distress. Past medical history; 1. Patient with a history of hypertension 2. Prior cholecystectomy and tubal ligation. 3. Questionable cirrhosis is most likely the etiology of ascites is ovarian malignancy. Medications; were reviewed. Allergies; are none. Social history; no swelling or drug abuse. Family history; occupational he; not available. Review of systems; currently unable to be obtained. General exam; middle-aged woman or intubated awake currently in no distress. Constitutional: improved Eyes: no complaints ENT: no complaints Respiratory: no complaints Cardiovascular: no complaints Gastrointestinal: other (tolerating diet), No pain Genitourinary: no complaints Musculoskeletal: no complaints Skin: no complaints Neurologic: no complaints Psychological: anxiety Social History Alcohol Use: none Smoking Status: Never smoker Drug Use: none Exam/Review of Systems Vital Signs Vitals Vital Signs Date Time Temp Pulse Resp B/P Pulse Ox O2 Delivery O2 Flow Rate FiO2 11/17/16 15:08 104 14 93 100 11/17/16 14:15 76/59 Room Air 11/17/16 13:30 93.4 Intake and Output 11/16/16 11/16/16 11/17/16 15:00 23:00 07:00 Intake Total 700 ml 2300 ml 1650 ml Balance 700 ml 2300 ml 1650 ml Exam HEENT examined; supple neck, no JVD. No lymphadenopathy. Midline trachea. No thyromegaly. Pupils are equal and reactive to light. Patient has fair dentition. No neck masses. No thyromegaly. Chest examination; diminished but clear breath sound bilaterally no added sounds S1-S2 audible, no murmurs. Regular rhythm. Abdomen exam is; soft, nondistended. There is a midline dressing in place. There is a JEWEL drain present. Bowel sounds are sluggish. Extremity exam; no peripheral edema. Pulses 1+ bilaterally. No clubbing. [employer]DER exam is; patient opens eyes on name calling. Results Result Diagram: 11/17/16 1450 11/17/16 1450 Results 24 hrs Laboratory Tests Test 11/17/16 04:32 11/17/16 14:50 11/17/16 15:03 11/17/16 15:38 White Blood Count 8.2 14.8 #H Red Blood Count 3.98 L 4.13 L Hemoglobin 11.0 L 11.8 L Hematocrit 35.8 L 36.4 L Mean Corpuscular Volume 89.9 88.1 Mean Corpuscular Hemoglobin 27.6 L 28.6 L Mean Corpuscular Hemoglobin Concent 30.7 L 32.4 Red Cell Distribution Width 15.8 H 15.7 H Platelet Count 508 H 291 # Mean Platelet Volume 8.9 8.5 Neutrophils % 67.1 83.9 H Lymphocytes % 23.2 9.1 L Monocytes % 8.1 5.8 Eosinophils % 0.7 0.1 Basophils % 0.7 0.3 Nucleated Red Blood Cells % 0.0 0.0 Neutrophils # 5.5 12.4 H Lymphocytes # 1.9 1.3 Monocytes # 0.7 0.9 Eosinophils # 0.1 0.0 Basophils # 0.1 0.1 Nucleated Red Blood Cells # 0.0 0.0 Sodium Level 135 138 Potassium Level 4.4 3.2 L Chloride Level 108 110 Carbon Dioxide Level 18 L 17 L Anion Gap 13 14 Blood Urea Nitrogen 10 10 Creatinine 0.87 0.72 Glucose Level 67 L 124 # Calcium Level 8.2 L 7.4 L Prothrombin Time 17.9 H Prothrombin Time Ratio 1.4 INR International Normalized Ratio 1.47 Blood Gas Specimen Source Blood arterial Arterial Blood Date Drawn 11/17/2016 3:30:53 PM Arterial Blood pH (Temp corrected) 7.264 *L Arterial Blood pCO2 (Temp correct) 28.5 L Arterial Blood pO2 (Temp corrected) 102.4 H Arterial Blood HCO3 12.6 L Arterial Blood Base Excess -13.0 L Arterial Blood Oxygen Saturation 96.8 Jhon Test ACCEPTAB Arterial Blood Gas Puncture Site Right Radial Arterial Blood Carboxyhemoglobin 0.3 Arterial Blood Methemoglobin 0.5 Blood Gas A-a O2 Differential 582.1 H Oxyhemoglobin Percent 96.0 Total Hemoglobin 11.5 L Blood Gas Temperature 37.0 Blood Gas Respiration Rate 14.0 Blood Gas Actual Respiration Rate 14 Blood Gas Modality VENT - AC FiO2 100.0 Blood Gas Tidal Volume 500.0 Blood Gas Low PEEP Setting 5.0 Blood Gas Critical Value Read Back Y KWAME CABRALES Blood Gas Notified Whom JLD Blood Gas Notified Time 11/17/2016 3:39:20 PM Bedside Glucose 185 Medications Medications Current Medications Ondansetron HCl (Zofran Tab) 4 mg Q6H PRN PO NAUSEA AND/OR VOMITING; Start 11/09 at 02:00 Metoclopramide HCl (Reglan) 10 mg Q6H PRN IV NAUSEA AND/OR VOMITING Last administered on 11/16/16 21:15; Admin Dose 10 MG; Start 11/09/16 at 02:00 Acetaminophen (Tylenol Tab) 650 mg Q6H PRN PO PAIN LEVEL 1-3 OR FEVER; Start at 02:00 Acetaminophen/ Hydrocodone Bitart ([place] (5/325)) 1 tab Q6H PRN PO MODERATE PAIN LEVEL 4-6 Last administered on 11/16/16 11:27; Admin Dose 1 TAB; Start 11/09/16 at 02:00 Acetaminophen/ Hydrocodone Bitart 2 tab 2 tab Q6H PRN PO SEVERE PAIN LEVEL 7- 10 Last administered on 11/10/16 14:55; Admin Dose 2 TAB; Start 11/09/16 at 02:00 Sodium Chloride (NS) 250 ml @ 250 mls/hr PRN PRN IV SBP <80 Last administered on 11/11/16 00:52; Admin Dose 250 MLS/HR; Start 11/10/16 at 17:30 Acetylcysteine (Nac) 600 mg BID PO Last administered on 11/16/16 20:23; Admin Dose 600 MG; Start 11/12/16 at 11:30 Lorazepam (Ativan) 1 mg Q4H PRN IV ANXIETY Last administered on 11/14/16 23:32 ; Admin Dose 1 MG; Start 11/14/16 at 23:30 Famotidine (Pepcid) 20 mg BID PO Last administered on 11/16/16 21:15; Admin Dose 20 MG; Start 11/16/16 at 21:30 Al Hydrox/Mg Hydrox/Simethicone (Mag-Al Plus) 30 ml Q6H PRN PO GASTROINTESTINAL UPSET Last administered on 11/16/16 21:15; Admin Dose 30 ML; Start 11/16/16 at 21:30 Naloxone HCl 0.2 mg 0.2 mg Q2M PRN IV FOR RESP RATE 8 OR LESS; Start 11/17/16 at 11:00; Stop 11/18/16 at 08:20 Phenylephrine HCl/ Dextrose ([place]/D5W) 500 ml @ 75 mls/hr TITRATE IV ; Start 11/17/16 at 16:00 Diagnostic Test (Pha) 1 ea 1 ea 02 XX ; Start 11/18/16 at 02:00 Imipenem/ Cilastatin Sodium 100 ml @ 166.667 mls/hr Q6 IVPB ; Start 11/17/16 at 18:00 Vancomycin HCl 1.25 gm/Sodium Chloride 250 ml @ 83.333 mls/ hr ONCE IVPB ; Start 11/17/16 at 17:00; Stop 11/18/16 at 02:00 Sodium Bicarbonate 50 meq/Dextrose/ Sodium Chloride 1,050 ml @ 125 mls/hr Q8H24M IV ; Start 11/17/16 at 17:00 Vancomycin HCl/ Sodium Chloride (Vancocin/NS) 150 ml @ 75 mls/hr Q12H IVPB ; Start 11/18/16 at 06:30 KATHERIN GARCIA Nov 17, 2016 15:57
--- NOTE | 2016-11-17 16:46 | CONS ---
DATE OF ADMISSION: 11/09/2016 DATE OF CONSULTATION: 11/17/2016 TYPE OF CONSULTATION: Infectious Disease. REASON FOR CONSULTATION: Antibiotic management. HISTORY OF PRESENT ILLNESS: Evangelina Hammond is a 56-year-old female with numerous problems who comes in to the emergency room on 11/09/2016 after getting a call from Dr. Kaiser to return because of abnormal fluid that was taken on paracentesis 5 days ago which showed malignant cells. The patient has abdominal pain. The fluid came back positive for malignancy as noted. PAST MEDICAL HISTORY: Includes 1. Hypertension. 2. Cirrhosis, decompensated with ascites. 3. Status post cholecystectomy in 2007. 4. Tubal ligation. On admission, her white count was 10.8, H and H of 11.6 and 35.8, platelet count 344,000. BUN and c reatinine 41/1.4. HOSPITAL COURSE: The patient had ascitic fluid which did not grow anything. She had a CT scan of t he abdomen and pelvis on 11/13/2016 which showed loculated ascites with peritoneal thickening with n odularity worrisome for peritoneal metastasis, increased soft tissue density in the omentum consiste nt with omental metastasis, bilateral complex adnexal masses which may represent an ovarian neoplasm . The possibility of drop metastasis should also be considered. There was thickening of the gastri c antrum. Consider endoscopic correlation if clinically warranted. There was a small pleural effus ion with trace right pleural effusion. The patient was brought to the OR by Dr. Pierce. She had an extensive debridement. She was seen also in pulmonary consultation by Dr. Calderon. The patient jones d peritoneal metastasis which was secondary to ovarian cancer. She had a radical total abdominal hy sterectomy, bilateral salpingo-oophorectomy, bilateral ureteral dissection, lymph node dissection, d istal splenectomy with pancreatectomy, omentectomy with cytoreduction, and an umbilical hernia repai r. Preoperative diagnosis was malignant ascitic fluid. Postoperative diagnosis was ovarian cancer. PAST MEDICAL HISTORY: Operations as outlined. FAMILY HISTORY: Noncontributory. SOCIAL HISTORY: She does not smoke, drink, or abuse drugs. ALLERGIES: NONE TO PENICILLIN, SULFA, OR FOODS. MEDICATIONS: Per chart. REVIEW OF SYSTEMS: Noncontributory. PHYSICAL EXAMINATION: GENERAL: The patient is a middle-aged female. She has an ET tube, NG tube, Yarbrough catheter. She jones s a drain in the abdomen. She has a right IJ catheter in place. SKIN: Without generalized rash. HEENT: Within normal limits. She is postop. NECK: Movable. LYMPH NODES: None palpable. CHEST: Decreased breath sounds at the bases. HEART: Without murmur or gallop. ABDOMEN: Soft, slightly distended, and tender. EXTREMITIES: Without cyanosis, clubbing, or edema. RECTAL AND GENITAL: Deferred. NEUROLOGIC: No focal neurological abnormalities. As noted, the patient is lethargic secondary to r ecent surgery. IMPRESSION AND PLAN: She was started on vancomycin and imipenem. We will continue her on this mookie men. I will dictate my findings to the hospitalist and to Dr. Gonzalez, Dr. Pierce, Dr. Calderon, and Radha Cardenas. Dictated By: TORRIE OROZCO MD, JD/STEVE Conf#: [id number] DID#: [id number]
[2016-11-17] MEDS ORDERED: SODIUM BICARBONATE IV SCH (17:00)
[2016-11-17] MEDS ORDERED: DEXTROSE IV SCH (17:00)
[2016-11-17] MEDS ORDERED: SODIUM BICARBONATE (IV ADD) 100 MEQ in DEXTROSE 5%-0.9% NACL 900 ML IV SCH (17:00)
[2016-11-17] MEDS ORDERED: VANCOMYCIN 1.25 GM in SOD CHLORIDE 0.9% 250 ML IVPB SCH (17:00)
[2016-11-17] MEDS ORDERED: NACL IV SCH (17:00)
--- NOTE | 2016-11-17 17:05 | RADRPT ---
PROCEDURE: XR Chest. CLINICAL INDICATION: Shortness of breath. TECHNIQUE: Single frontal view. COMPARISON: 11/08/2016. FINDINGS: The endotracheal tube tip is in the right mainstem bronchus and should be retracted approximately 3 cm. The right lung is clear. The left lung is collapsed. The heart size cannot be determined. A right internal jugular vein catheter is noted. There is no pleural effusion. There is no pneumothorax. IMPRESSION: 1. Endotracheal tube tip in the right mainstem bronchus and should be retracted 3 cm. 2. Collapsed left lung. 3. Right IJ catheter. Call report: A call report of the findings was made to the patient's nurse Justine Ponce on 11/17/2016 at 1601 hours. RPTAT: QQ .Willy Mustafa MD, Date Time Electronically viewed and signed by .Willy Mustafa MD, on 11/17/2016 17:04 .R/
[2016-11-17] MEDS ORDERED: NORepinephrine 8MG/250 ML (PMX 250 ML ONE (17:21)
[2016-11-17] MEDS: INSULIN ASPART [NOVOLOG] 3 ML PEN SC SCH ×2 (17:59→21:32)
[2016-11-17] MEDS ORDERED: NORepinephrine 8MG/250 ML (PMX 250 ML IV SCH (18:00)
[2016-11-17] MEDS: IMIPENEM-CILAST 500MG IV (PMX) 100 ML IVPB SCH (18:02)
--- NOTE | 2016-11-17 18:04 | CONS ---
Date/Time of Note Date/Time of Note DATE: 11/17/16 TIME: 18:03 Assessment/Plan Assessment/Plan Chief Complaint/Hosp Course 56 yo female with malignant ascites whose cytology is consistent with primary peritoneal cancer vs ovarian primary. - CT with IV contrast of abd and pel showed loculated ascites, peritoneal mets, omental mets, bilateral adnexal masses; - Patient taken to OR by Dr. Pierce today 11/17/16 that showed stage IIIC ovarian cancer with very advanced disease with confluent disease, which was debulked to < 5 mm residual disease. An en-bloc omentectomy with splenectomy and distal pancreatectomy (minimal, about 1/2 cm) was needed to remove the bulky /massive upper abdominal disease. - Plan for chemothrapy in 10-[address] Pierce. - s/p paracentesis 11/10/16 for her abdominal distension, with removal of 4.9L, and again today intraoperatively with removal of 5L - bilateral LE dopplers neg for DVT Problems: Consultation Date/Type/Reason Admit Date/Time Nov 09, 2016 at 00:55 Initial Consult Date 11/09/16 Type of Consultation: Oncology Referring Provider: JYOTHI BENAVIDES 24 HR Interval Summary Free Text/Dictation Patient taken to OR by Dr. Pierce today that showed stage IIIC ovarian cancer with very advanced disease with confluent disease, which was debulked to < 5 mm residual disease. An en-bloc omentectomy with splenectomy and distal pancreatectomy (minimal, about 1/2 cm) was needed to remove the bulky/massive upper abdominal disease. Per the nurse, she also had a paracentesis intraoperatively with removal of 5L. She is currently intubated and on two pressors due to drop in BP. Exam/Review of Systems Vital Signs Vitals Vital Signs Date Time Temp Pulse Resp B/P Pulse Ox O2 Delivery O2 Flow Rate FiO2 11/17/16 16:00 92 11/17/16 15:08 14 93 100 11/17/16 14:15 76/59 Room Air 11/17/16 13:30 93.4 Intake and Output 11/16/16 11/16/16 11/17/16 15:00 23:00 07:00 Intake Total 700 ml 2300 ml 1650 ml Balance 700 ml 2300 ml 1650 ml Exam Constitutional: alert, not sedated, intubated Head: atraumatic, normocephalic Eyes: nl conjunctiva ENMT: nl external ears & nose Neck: supple Respiratory: clear to auscultation, normal air movement Cardiovascular: regular rate and rhythm Gastrointestinal: ascites, soft Musculoskeletal: nl extremities to inspection, nl gait and stance Extremities: normal pulses Results Result Diagram: 11/17/16 1450 11/17/16 1450 Results 24 hrs Laboratory Tests Test 11/17/16 04:32 11/17/16 14:50 11/17/16 15:03 11/17/16 15:30 White Blood Count 8.2 14.8 #H Red Blood Count 3.98 L 4.13 L Hemoglobin 11.0 L 11.8 L Hematocrit 35.8 L 36.4 L Mean Corpuscular Volume 89.9 88.1 Mean Corpuscular Hemoglobin 27.6 L 28.6 L Mean Corpuscular Hemoglobin Concent 30.7 L 32.4 Red Cell Distribution Width 15.8 H 15.7 H Platelet Count 508 H 291 # Mean Platelet Volume 8.9 8.5 Neutrophils % 67.1 83.9 H Lymphocytes % 23.2 9.1 L Monocytes % 8.1 5.8 Eosinophils % 0.7 0.1 Basophils % 0.7 0.3 Nucleated Red Blood Cells % 0.0 0.0 Neutrophils # 5.5 12.4 H Lymphocytes # 1.9 1.3 Monocytes # 0.7 0.9 Eosinophils # 0.1 0.0 Basophils # 0.1 0.1 Nucleated Red Blood Cells # 0.0 0.0 Sodium Level 135 138 Potassium Level 4.4 3.2 L Chloride Level 108 110 Carbon Dioxide Level 18 L 17 L Anion Gap 13 14 Blood Urea Nitrogen 10 10 Creatinine 0.87 0.72 Glucose Level 67 L 124 # Calcium Level 8.2 L 7.4 L Prothrombin Time 17.9 H Prothrombin Time Ratio 1.4 INR International Normalized Ratio 1.47 Blood Gas Specimen Source Blood arterial Arterial Blood Date Drawn 11/17/2016 3:30:53 PM Arterial Blood pH (Temp corrected) 7.264 *L Arterial Blood pCO2 (Temp correct) 28.5 L Arterial Blood pO2 (Temp corrected) 102.4 H Arterial Blood HCO3 12.6 L Arterial Blood Base Excess -13.0 L Arterial Blood Oxygen Saturation 96.8 Jhon Test ACCEPTAB Arterial Blood Gas Puncture Site Right Radial Arterial Blood Carboxyhemoglobin 0.3 Arterial Blood Methemoglobin 0.5 Blood Gas A-a O2 Differential 582.1 H Oxyhemoglobin Percent 96.0 Total Hemoglobin 11.5 L Blood Gas Temperature 37.0 Blood Gas Respiration Rate 14.0 Blood Gas Actual Respiration Rate 14 Blood Gas Modality VENT - AC FiO2 100.0 Blood Gas Tidal Volume 500.0 Blood Gas Low PEEP Setting 5.0 Blood Gas Critical Value Read Back Y KWAME CABRALES Blood Gas Notified Whom RODDY Blood Gas Notified Time 11/17/2016 3:39:20 PM Hemoglobin A1c 5.2 Lactic Acid Level 3.6 H Test 11/17/16 15:38 11/17/16 15:59 Bedside Glucose 185 147 Medications Medications Current Medications Ondansetron HCl (Zofran Tab) 4 mg Q6H PRN PO NAUSEA AND/OR VOMITING; Start 11/09 at 02:00 Metoclopramide HCl (Reglan) 10 mg Q6H PRN IV NAUSEA AND/OR VOMITING Last administered on 11/16/16 21:15; Admin Dose 10 MG; Start 11/09/16 at 02:00 Acetaminophen (Tylenol Tab) 650 mg Q6H PRN PO PAIN LEVEL 1-3 OR FEVER; Start at 02:00 Acetaminophen/ Hydrocodone Bitart (Hildreth (5/325)) 1 tab Q6H PRN PO MODERATE PAIN LEVEL 4-6 Last administered on 11/16/16 11:27; Admin Dose 1 TAB; Start 11/09/16 at 02:00 Acetaminophen/ Hydrocodone Bitart 2 tab 2 tab Q6H PRN PO SEVERE PAIN LEVEL 7- 10 Last administered on 11/10/16 14:55; Admin Dose 2 TAB; Start 11/09/16 at 02:00 Sodium Chloride (NS) 250 ml @ 250 mls/hr PRN PRN IV SBP <80 Last administered on 11/11/16 00:52; Admin Dose 250 MLS/HR; Start 11/10/16 at 17:30 Acetylcysteine (Nac) 600 mg BID PO Last administered on 11/16/16 20:23; Admin Dose 600 MG; Start 11/12/16 at 11:30 Lorazepam (Ativan) 1 mg Q4H PRN IV ANXIETY Last administered on 11/14/16 23:32 ; Admin Dose 1 MG; Start 11/14/16 at 23:30 Famotidine (Pepcid) 20 mg BID PO Last administered on 11/16/16 21:15; Admin Dose 20 MG; Start 11/16/16 at 21:30 Al Hydrox/Mg Hydrox/Simethicone (Mag-Al Plus) 30 ml Q6H PRN PO GASTROINTESTINAL UPSET Last administered on 11/16/16 21:15; Admin Dose 30 ML; Start 11/16/16 at 21:30 Naloxone HCl 0.2 mg 0.2 mg Q2M PRN IV FOR RESP RATE 8 OR LESS; Start 11/17/16 at 11:00; Stop 11/18/16 at 08:20 Phenylephrine HCl/ Dextrose (Santiago-Syneph/D5W) 500 ml @ 75 mls/hr TITRATE IV Last administered on 11/17/16 15:15; Admin Dose 22.5 MLS/HR; Start 11/17/16 at 16:00 Diagnostic Test (Pha) 1 ea 1 ea 02 XX ; Start 11/18/16 at 02:00 Imipenem/ Cilastatin Sodium 100 ml @ 166.667 mls/hr Q6 IVPB Last administered on 11/17/16 18:02; Admin Dose 166.667 MLS/HR; Start 11/17/16 at 18:00 Vancomycin HCl 1.25 gm/Sodium Chloride 250 ml @ 83.333 mls/ hr ONCE IVPB Last administered on 11/17/16 17:46; Admin Dose 83.333 MLS/HR; Start 11/17/16 at 17: 00; Stop 11/18/16 at 02:00 Vancomycin HCl 750 mg/Sodium Chloride 150 ml @ 75 mls/hr Q12H IVPB ; Start at 06:30 Sodium Bicarbonate 100 meq/Dextrose/ Sodium Chloride 1,000 ml @ 100 mls/hr Q10H IV ; Start 11/17/16 at 18:30 Norepinephrine (Levophed) 250 ml @ 1.875 mls/ hr TITRATE IV ; Start 11/17/16 at 18:00 TOMARK MD Nov 17, 2016 18:04
[2016-11-17] MEDS: SODIUM BICARBONATE (IV ADD) 100 MEQ in DEXTROSE 5%-0.9% NACL 900 ML IV SCH (18:13)
--- NOTE | 2016-11-17 19:15 | RADRPT ---
PROCEDURE: XR Chest. CLINICAL INDICATION: Tube placement TECHNIQUE: AP Portable chest. COMPARISON: Chest x-ray 11/17/2016 FINDINGS: The soft tissues and bones are remarkable for an endotracheal tube 3.2 cm above the zoë from the previous right mainstem bronchus intubation. An enteric tube is noted in the stomach. A right inte rnal jugular catheter is present tip in the superior vena cava. Interval re-expansion of the previo usly described left hemithoracic atelectasis is noted. Persistent left lower lobe consolidation or atelectasis is noted with small left greater than right pleural effusions. The right hemithorax is otherwise clear. The heart size is normal. The mediastinum demonstrates mild vascular calcificatio ns of the thoracic aorta. No pneumothorax is present. IMPRESSION: 1. Tubes and lines as indicated above with repositioning of the endotracheal tube now 3.2 cm above the zoë. 2. Re-expansion of previously noted left hemithoracic atelectasis 3. Left lower lobe consolidation or residual atelectasis with small left greater than right pleural effusion. 4. Mild atherosclerotic vascular disease RPTAT: HDC .Shagufta Maxwell MD, Date Time Electronically viewed and signed by .Shagufta Maxwell MD, on 11/17/2016 19:15 .C/
--- NOTE | 2016-11-17 20:58 | RADRPT ---
Vent Rate: 78 bpm RR Interval: 0 msec MD Interval: 132 msec QRS Duration: 72 msec QT Interval: 380 msec QTC Interval: 433 msec P-R-T [place]: 13 - 2 - 28 degrees Normal sinus rhythm Low voltage QRS Possible Inferior infarct , age undetermined Possible Anterolateral infarct , age undetermined Abnormal ECG Electronically Signed By: Kyle Gunn [id number]
--- NOTE | 2016-11-17 22:25 | OPR ---
Date/Time of Note Date/Time of Note DATE: 11/17/16 TIME: 22:24 Operative Report Free Text/Dictation OPERATIVE REPORT [facility] Name: Evangelina Collado Medical Date: 11/17/16 Preoperative Diagnosis: 1- Pelvic mass and ascites 2- Elevated CA-125 Postoperative Diagnosis: 1- Stage IIIc ovarian cancer 2- Bilateral ureteral stricture, left hydroureter 3- Impending small bowel obstruction Procedures: 1- Extended hysterectomy with bilateral salpingoophorectomy 2- Bilateral ureteral dissection with repositioning 3- Splenectomy with distal pancreatectomy 4- Omentectomy with cytoreduction 5- Pelvic and aortic lymph node dissection 6- Diaphragm stripping Surgeon: Dr. Pierce Guest Advisor: BETITO Treviño Anesthesia: General Indications for surgery: The patient is a 56- year old female with primary advanced stage ovarian cancer cancer on the basis of physical findings with elevated markers, radiographic findings, and symptoms of whom a cytoreduction was undertaken after addressing all options with risks and benefits. Findings and Summary Name: Evangelina Farris After opening and exploration we removed 4000cc ascites and noted upper abdominal disease involving the omentum, spleen, diaphragm, and bowel with metastatic implants which were addressed and the pelvic disease was resected. The retroperitoneal nodes were grossly normal At the completion of the procedure the patient was rendered cytoreduced to a < 5 mm residual disease status due to confluent disease. Procedure: After being prepped and draped in the usual manner a midline skin incision was made of appropriate length. The electrocautery was then used to dissect thru the adipose tissue to the level of the fascia. The fascia was incised sharply and the peritoneum identified. At this time the peritoneum was elevated and incised with a Metzenbaum scissors. Upon entering the peritoneal cavity 4000 cc of ascetic fluid was removed. At this time adhesions of intestine to the anterior abdominal wall were lysed with great care. We then searched the abdominal and pelvic contents and found that the left upper quadrant metastatic disease involved the greater omentum with confluent disease involving the gastrocolic ligament, and splenic hilum with the spleen encased, gastric surface , transverse/splenic flexure colon. (rank #3). The right upper quadrant diseases involved approximately 55 % of the diaphragm surface and did not involve the undersurface (rank #2). Exploration of the central abdomen revealed approximately 100 implants involving the mesentery, intestinal, and gutter regions with dimensions of 1 mm to 20 mm with the small bowel in multiple areas kinked and cauliflowered, but not completely obstructed (rank # 2). The pelvic disease consisted of involvement of both adnexia with the cul- de-sac involved with confluent metastatic disease (rank # 2). The largest metastatic disease was 20 cm in dimension and involved the omentum adjacent organs. We then placed an aortic Bellfower retractor. At this time, the omentum was dissected from the transverse colon with sharp dissection and electrocautery when possible. Vessels to large to be managed by electrocautery or too close to the Name: [facility] colon were hemoclipped and transected. Larger pedicles were addressed with the endo-KVNG using white vascular reloads if immediately adjacent to serosa, otherwise the Ligasure if bulky with adipose or the Gyrus bipolar cutting forceps if smaller and vascular. Oozing areas in the staple line were either cauterized, or sutured with 3-0 silk depending on the proximity to adjacent colonic serosa. This procedure was carried out throughout the length of the omentum and transverse colon. We then entered the lesser sac bluntly and the gastro-colic ligament from the greater curvature of the stomach with the electrocautery and the Ligasure. Of note, the omentum and gastro-colic ligament were essentially replaced with metastatic disease. Any small disease in the lesser sac was ablated with an argon beam first responder. The Gyrus bipolar cutting forceps was used for easily skeletonized vessels, otherwise the Ligasure. At this time, the remaining attachments of the spleen to the greater curvature of the stomach were hemoclipped and cut. The spleen with associated disease was mobilized by using electrocautery to address the attachment to the kidney. Attachments to the splenic flexure of the colon were addressed with Gyrus bipolar cutting forceps and the endo-KVNG when possible. The splenic vessels were separately clipped and tied with 0-Vicryl. Due to confluent disease involving the splenic hilum and minimal area of the pancreatic tail the pancreas was mobilized with electrocautery and the endo-KVNG as needed. The distal pancreas was stapled across with an endo- KVNG stapler and the possible duct was visualized with separately sutured with interrupted 3-0 Prolene suture . The specimen was removed en-bloc and the pancreatic staple line reinforced with continuous and interrupted 3-0 prolene. Adjacent diaphragm small volume metastatic disease was ablated with the argon beam first responder. Additionally, the small volume right diaphragm was had peritoneum resected and ablated with the argon beam first responder. The falsiform and triangular ligaments were transected with a Ligasure. Subsequently, retractors were used with the Mirza arms to elevate the anterior chest. The peritoneum adjacent to the anterior chest wall was incised Name: [facility] and the incision was extended with elevation and cautery. The peritoneum with confluent metastatic disease previously described was dissected away from the underlying diaphragmatic muscle. This was accomplished with sharp dissection as well as blunt dissection, using the argon beam first responder for hemostasis and to facilitate the dissection. The segment of involved peritoneum was then removed with electrocautery and the Ligasure. In this manner all visible disease was removed and minimal residual disease on residual diaphragm peritoneum was ablated with the argon beam first responder. At this time, the entire small and large bowel was thoroughly inspected and palpated and additional enterolysis was needed. Of note, there was confluent metastatic disease that was not nodular and caused a cauliflower appearance. Hence enterolysis with sharp dissection and digitally was accomplished and the aforementioned confluent disease was dissected and ablated with the argon beam first responder when feasible. There were approximately 100 implants on the mesentery and serosal surfaces of the small intestine and colon, excluding cul- de-sac disease. The size of the implants ranged from 1 to 30 millimeters. All mesenteric implants were ablated with an argon beam first responder using a setting of 150 domínguez. Larger implants were excised either sharply and the bases ablated with the argon beam first responder. Mesenteric implants immediately adjacent to the intestinal serosa or involving the serosa were excised sharply and any defects were closed with multiple sutures of 3-0 silk. Most implants were ablated or excised; however, the large number involving the intestinal surface directly precluded elimination of all disease. At this time, the pelvic disease was addressed. Because of the extensive disease involving the reproductive organs as well as the pelvic peritoneum an en-bloc procedure was planned with ureteral dissection and repositioning to facilitate resection. Initially the right round ligament was transected with an a Gyrus bipolar cutting forceps uneventfully. The retroperitoneal area was opened and the ureter was identified. The ureter were dissected with a right angle clamp and lateralized and then [facility] a peanut and digital dissection due to adherent metastatic disease on the peritoneum and adjacent mass. After repositioning the ureter laterally away from the adherent peritoneum that was densely involved with disease, the infundibulopelvic ligament was transected by cauterizing with a Ligasure and then clamping, transecting and suturing with 0- Vicryl suture. Attention was then addressed contralaterally in that the left round ligament was transected with an a Ligasure uneventfully. The retroperitoneal area was opened and the ureter was identified. The ureter were dissected with a right angle clamp and lateralized and then further repositioned with a peanut and digitally due to adherent metastatic disease on the peritoneum and adjacent mass with some element of hydroureter. After repositioning the ureter laterally away from the adherent peritoneum that was densely involved with disease, the IP ligament was transected by cauterizing with a Gyrus bipolar cutting forceps and then clamping , transecting and suturing with 0- Vicryl suture. The bladder flap was then developed retrograde with a Bovie and any implants on the anterior bladder peritoneum were removed and additional implants ablated with an ABC first responder. At this time a large right angle clamp was used to dissect the ureters bilaterally, away from the uterine vessels in a manner used during a type-2 hysterectomy. The uterine arteries were clipped and cut, along with the veins. The ureters were then tunneled through the parametria with a large right angle clamp, and the parametrial pedicles were transected with an endo- KVNG bilaterally. The bladder pillars were then dissected and clipped, after which the ureters were confirmed to be undamaged. Hence, remaining parametrial tissue was transected with the Gyrus bipolar cutting forceps and Ligasure and uterosacral ligaments were clamped with Bogdan clamps. The rectum and colon were also mobilized considerably from the lower uterine segment and cervix, allowing the rectum to be from the cul-de-sac and the confluent disease to be included with the specimen, leaving the rectum deperitonealized but intact as proven by inserting and EEA sizer. The uterus was from the vagina and the vagina closed with [facility] figure of eight sutures using 0-vicryl. Additional implants were excised from the sigmoid and the muscular-serosal defects repaired with interrupted 3-0 silk suture while ther small ones were ablated with the argon beam first responder at low wattage. After confirming hemostasis we addressed the lymph node dissection since we had adequate exposure. Initially lymph node tissue adjacent to the right external iliac artery and vein, hypogastric artery and vein, as well as obturator fossa were removed with sharp and blunt dissection, using the Gyrus bipolar cutting forceps for hemostasis and lymphostasis. The dissection was continued to include michael tissue adjacent to the common iliac vessels. The retractors were adjusted and michael tissue adjacent to the vena cava, as well as aorto-caval nodes were removed using identical technique. At this time we adjusted the retractors and lymph node tissue adjacent to the left external iliac artery and vein, hypogastric artery and vein, as well as obturator fossa were removed with sharp and blunt dissection, using the Gyrus bipolar cutting forceps for hemostasis and lymphostasis. The dissection was continued to include michael tissue adjacent to the common iliac vessels. Subsequently, the retractors were adjusted and michael tissue adjacent to the aorta were dissected using sharp and blunt dissection with the Gyrus bipolar cutting forceps for hemostasis and lymphostasis. At this time, after all packing was removed, the abdomen thoroughly irrigated, and hemostasis confirmed in all quadrants. At this time, after all packing was removed, the abdomen again thoroughly irrigated , hemostasis confirmed, and a LUQ drain was placed. A figure of eight suture was placed at the caudal apex of the incision with 1- Vicryl suture and used for exposure by elevating with a Pean clamp. A small periumbilical hernia was resected with the Ligasure without incident and sent to pathology. Subsequently , continuous 1 Vicryl suture was used from the rostral apex and run to the supra -pubic area. The final suture was tied appropriately, after which the figure of eight was tied. The subcutaneous tissue was irrigated and the skin was closed with a deep layer of 3-0 Vicryl suture and skin clips. The sponge, needle, and instrument were correct two times. The Name: Evangelina [facility] estimated blood loss was 600 ml. The patient tolerated the procedure well and left the OR in good condition. It should be noted that most visible disease was resected or ablated, but residual disease of 5 mm cm was likely due to the amount of confluent metastatic disease and disease on serosa both of which could not be addressed Dillon Pierce M.D. DILLON PIERCE MD Nov 17, 2016 22:25
[2016-11-18] VITALS (98 sets, daily range): BP systolic 67–142; BP diastolic 43–118; PULSE 89–139; RESP 13–29
[2016-11-18] MEDS: IMIPENEM-CILAST 500MG IV (PMX) 100 ML IVPB SCH ×3 (00:04→11:23)
[2016-11-18] MEDS: PHENYLephrine 40 MG in DEXTROSE 5% 496 ML IV SCH ×2 (01:03→04:52)
[2016-11-18] MEDS: ACCU-CHEK XX SCH (02:00)
[2016-11-18] MEDS: SODIUM BICARBONATE (IV ADD) 100 MEQ in DEXTROSE 5%-0.9% NACL 900 ML IV SCH (03:55)
[2016-11-18] MEDS ORDERED: SOD CHLORIDE 0.9% 1,000 ML IV ONE (05:30)
[2016-11-18] MEDS ORDERED: PHENYLephrine 80 MG in DEXTROSE 5% 492 ML IV SCH (06:00)
[2016-11-18 06:06] LABS: ADD SCAN DIFF NO
[2016-11-18 06:22] LABS: HEMATOCRIT 28.2 % (37.0-47.0); HEMOGLOBIN 9.4 g/dl (12.0-16.0); MEAN CORPUSCULAR HEMOGLOBIN 28.9 pg (29.0-33.0); MEAN CORPUSCULAR HGB CONC 33.3 g/dl (32.0-37.0); MEAN CORPUSCULAR VOLUME 86.8 fl (82.0-101.0); MEAN PLATELET VOLUME 9.6 fl (7.4-10.4); PLATELET COUNT 215 10^3/UL (140-415); RED BLOOD COUNT 3.25 10^6/ul (4.20-5.40); RED CELL DISTRIBUTION WIDTH 16.3 % (11.5-14.5); WHITE BLOOD COUNT 11.9 10^3/ul (4.8-10.8)
[2016-11-18 06:25] LABS: INR 1.37; PROTIME 16.9 Sec (12.2-14.2); PT RATIO 1.3
[2016-11-18] MEDS ORDERED: VANCOMYCIN 750 MG in SOD CHLORIDE 0.9% 150 ML IVPB SCH (06:30)
[2016-11-18 06:37] LABS: CREATININE 1.06 mg/dl (0.44-1.00)
[2016-11-18 06:38] LABS: CALCIUM 7.3 mg/dl (8.4-10.2)
[2016-11-18 06:51] LABS: POTASSIUM 2.8 mmol/L (3.5-5.1)
[2016-11-18] MEDS ORDERED: POTASSIUM CHLORIDE IVPB ONE (07:00)
[2016-11-18] MEDS ORDERED: SOD CHLORIDE 0.9% IVPB ONE (07:00)
[2016-11-18] MEDS ORDERED: POTASSIUM CHLORIDE 150 ML ONE (07:12)
[2016-11-18] MEDS: POTASSIUM CHLORIDE 50 ML IVPB SCH ×3 (07:15→11:02)
[2016-11-18] MEDS: PHENYLephrine 80 MG in DEXTROSE 5% 492 ML IV SCH ×3 (08:03→17:21)
[2016-11-18] MEDS: INSULIN ASPART [NOVOLOG] 3 ML PEN SC SCH ×4 (08:03→21:00)
[2016-11-18] MEDS: HYDROCODONE/APAP (5/325) TAB PO PRN (08:04)
--- NOTE | 2016-11-18 08:30 | CONS ---
Date/Time of Note Date/Time of Note DATE: 11/18/16 TIME: 08:26 Assessment/Plan Assessment/Plan Additional Assessment/Plan Ventilator settings; AC of 16, tidal volume 500, PEEP of 5, 60% FiO2. Assessment recommendations; next 1. 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 Status post debulking surgery. 2. Large volume ascites was also removed. 3. Metabolic acidosis with interval correction. 4. Hypotension requiring pressor support. 5. Right mainstem intubation with atelectasis of the left lung, however clinical examination is markedly improved. 6. Excellent mental status. 7. Patient has been switched over to CPAP mode currently has good weaning parameters. Continue CPAP mode for at least 30 minutes, obtain a blood gas after that. A chest x-ray is pending from today. Once x-rays done I will review it and decide with the patient can be extubated. Consultation Date/Type/Reason Admit Date/Time Nov 09, 2016 at 00:55 Initial Consult Date 11/17/16 Type of Consultation: Coronary/critical care Referring Provider: JYOTHI BENAVIDES 24 HR Interval Summary Free Text/Dictation Patient condition is critical, patient however is completely awake alert requiring phenylephrine drip for blood pressure maintenance. Patient also has been adequately fluid resuscitated. General exam; middle-aged woman awake alert currently in no distress, orally intubated. Exam/Review of Systems Vital Signs Vitals Vital Signs Date Time Temp Pulse Resp B/P Pulse Ox O2 Delivery O2 Flow Rate FiO2 11/18/16 07:45 104 14 97/64 100 Mechanical Ventilator 11/18/16 07:00 99.5 11/18/16 05:09 60 Intake and Output 11/17/16 11/17/16 11/18/16 15:00 23:00 07:00 Intake Total 3620 ml 1369.166 ml 500 ml Output Total 1060 ml 1020 ml 820 ml Balance 2560 ml 349.166 ml -320 ml Exam HEENT exam; supple neck, no JVD. No lymphadenopathy. Midline trachea. Orally intubated. Pupils are midsize reactive to light. No neck masses. Chest exam; clear to auscultation bilaterally. S1-S2 audible, no murmurs. Regular rhythm. Abdomen exam is; soft, midline dressing in place there is a JEWEL drain in place bowel sounds audible, there is minimal lower abdominal tenderness. Bowel sounds are audible. Extremity exam; no peripheral edema. Pulses 1+ bilaterally. NUTRITION CONSULTANT exam is; patient is awake alert follows commands moves all 4 extremities. Results Result Diagram: 11/18/16 0515 11/18/16 0515 Results 24 hrs Laboratory Tests Test 11/17/16 14:50 11/17/16 15:03 11/17/16 15:30 11/17/16 15:38 White Blood Count 14.8 #H Red Blood Count 4.13 L Hemoglobin 11.8 L Hematocrit 36.4 L Mean Corpuscular Volume 88.1 Mean Corpuscular Hemoglobin 28.6 L Mean Corpuscular Hemoglobin Concent 32.4 Red Cell Distribution Width 15.7 H Platelet Count 291 # Mean Platelet Volume 8.5 Neutrophils % 83.9 H Lymphocytes % 9.1 L Monocytes % 5.8 Eosinophils % 0.1 Basophils % 0.3 Nucleated Red Blood Cells % 0.0 Neutrophils # 12.4 H Lymphocytes # 1.3 Monocytes # 0.9 Eosinophils # 0.0 Basophils # 0.1 Nucleated Red Blood Cells # 0.0 Prothrombin Time 17.9 H Prothrombin Time Ratio 1.4 INR International Normalized Ratio 1.47 Sodium Level 138 Potassium Level 3.2 L Chloride Level 110 Carbon Dioxide Level 17 L Anion Gap 14 Blood Urea Nitrogen 10 Creatinine 0.72 Glucose Level 124 # Calcium Level 7.4 L Blood Gas Specimen Source Blood arterial Arterial Blood Date Drawn 11/17/2016 3:30:53 PM Arterial Blood pH (Temp corrected) 7.264 *L Arterial Blood pCO2 (Temp correct) 28.5 L Arterial Blood pO2 (Temp corrected) 102.4 H Arterial Blood HCO3 12.6 L Arterial Blood Base Excess -13.0 L Arterial Blood Oxygen Saturation 96.8 Jhon Test ACCEPTAB Arterial Blood Gas Puncture Site Right Radial Arterial Blood Carboxyhemoglobin 0.3 Arterial Blood Methemoglobin 0.5 Blood Gas A-a O2 Differential 582.1 H Oxyhemoglobin Percent 96.0 Total Hemoglobin 11.5 L Blood Gas Temperature 37.0 Blood Gas Respiration Rate 14.0 Blood Gas Actual Respiration Rate 14 Blood Gas Modality VENT - AC FiO2 100.0 Blood Gas Tidal Volume 500.0 Blood Gas Low PEEP Setting 5.0 Blood Gas Critical Value Read Back Y KWAME RN Blood Gas Notified Whom JLD Blood Gas Notified Time 11/17/2016 3:39:20 PM Hemoglobin A1c 5.2 Lactic Acid Level 3.6 H Bedside Glucose 185 Test 11/17/16 15:59 11/17/16 17:54 11/17/16 21:02 11/18/16 01:49 Bedside Glucose 147 193 284 H 257 H Test 11/18/16 05:15 11/18/16 05:51 11/18/16 07:53 White Blood Count 11.9 H Red Blood Count 3.25 #L Hemoglobin 9.4 #L Hematocrit 28.2 #L Mean Corpuscular Volume 86.8 Mean Corpuscular Hemoglobin 28.9 L Mean Corpuscular Hemoglobin Concent 33.3 Red Cell Distribution Width 16.3 H Platelet Count 215 # Mean Platelet Volume 9.6 Neutrophils % Eosinophils % Neutrophils # Eosinophils # Prothrombin Time 16.9 H Prothrombin Time Ratio 1.3 INR International Normalized Ratio 1.37 Sodium Level 137 Potassium Level 2.8 *L Chloride Level 104 Carbon Dioxide Level 21 Anion Gap 15 Blood Urea Nitrogen 11 Creatinine 1.06 H Glucose Level 287 #H Calcium Level 7.3 L Bedside Glucose 260 H 242 H Medications Medications Current Medications Ondansetron HCl (Zofran Tab) 4 mg Q6H PRN PO NAUSEA AND/OR VOMITING Last administered on 11/18/16 08:09; Admin Dose 4 MG; Start 11/09/16 at 02:00 Metoclopramide HCl (Reglan) 10 mg Q6H PRN IV NAUSEA AND/OR VOMITING Last administered on 11/16/16 21:15; Admin Dose 10 MG; Start 11/09/16 at 02:00 Acetaminophen (Tylenol Tab) 650 mg Q6H PRN PO PAIN LEVEL 1-3 OR FEVER; Start at 02:00 Acetaminophen/ Hydrocodone Bitart ([place] (5/325)) 1 tab Q6H PRN PO MODERATE PAIN LEVEL 4-6 Last administered on 11/16/16 11:27; Admin Dose 1 TAB; Start 11/09/16 at 02:00 Acetaminophen/ Hydrocodone Bitart 2 tab 2 tab Q6H PRN PO SEVERE PAIN LEVEL 7- 10 Last administered on 11/18/16 08:04; Admin Dose 2 TAB; Start 11/09/16 at 02: 00 Sodium Chloride (NS) 250 ml @ 250 mls/hr PRN PRN IV SBP <80 Last administered on 11/11/16 00:52; Admin Dose 250 MLS/HR; Start 11/10/16 at 17:30 Acetylcysteine (Nac) 600 mg BID PO Last administered on 11/17/16 20:52; Admin Dose 600 MG; Start 11/12/16 at 11:30 Lorazepam (Ativan) 1 mg Q4H PRN IV ANXIETY Last administered on 11/14/16 23:32 ; Admin Dose 1 MG; Start 11/14/16 at 23:30 Famotidine (Pepcid) 20 mg BID PO Last administered on 11/17/16 20:52; Admin Dose 20 MG; Start 11/16/16 at 21:30 Al Hydrox/Mg Hydrox/Simethicone (Mag-Al Plus) 30 ml Q6H PRN PO GASTROINTESTINAL UPSET Last administered on 11/16/16 21:15; Admin Dose 30 ML; Start 11/16/16 at 21:30 Diagnostic Test (Pha) 1 ea 1 ea 02 XX Last administered on 11/18/16 02:00; Admin Dose 1 EA; Start 11/18/16 at 02:00 Imipenem/ Cilastatin Sodium 100 ml @ 166.667 mls/hr Q6 IVPB Last administered on 11/18/16 05:46; Admin Dose 166.667 MLS/HR; Start 11/17/16 at 18:00 Vancomycin HCl 750 mg/Sodium Chloride 150 ml @ 75 mls/hr Q12H IVPB Last administered on 11/18/16 05:47; Admin Dose 75 MLS/HR; Start 11/18/16 at 06:30 Sodium Bicarbonate 100 meq/Dextrose/ Sodium Chloride 1,000 ml @ 100 mls/hr Q10H IV Last administered on 11/18/16 03:55; Admin Dose 100 MLS/HR; Start at 18:30 Norepinephrine 250 ml @ 1.875 mls/ hr TITRATE IV Last administered on 20:50; Admin Dose 3.75 MLS/HR; Start 11/17/16 at 18:00 Phenylephrine HCl 80 mg/Dextrose 500 ml @ 37.5 mls/hr TITRATE IV Last administered on 11/18/16 08:03; Admin Dose 84.37 MLS/HR; Start 11/18/16 at 06: 15 Potassium Chloride (KCl 20 MEQ/50 ML SW) 50 ml @ 25 mls/hr Q2H IVPB Last administered on 11/18/16t 07:15; Admin Dose 25 MLS/HR; Start 11/18/16 at 07:30; Stop 11/18/16 at 13:29 KATHERIN GARCIA Nov 18, 2016 08:30
[2016-11-18] MEDS: ACETYLCYSTEINE 600 MG CAP PO SCH ×2 (08:32→20:49)
[2016-11-18] MEDS: FAMOTIDINE 20 MG TAB PO SCH ×2 (08:32→20:49)
[2016-11-18 09:46] LABS: LYMPHOCYTES # 1.2 10^3/ul (0.8-2.9); MONOCYTE # 0.4 10^3/ul (0.3-0.9); NEUTROPHIL # 8.7 10^3/ul (1.6-7.5)
[2016-11-18 10:09] LABS: AADO2 Arterial 127.4 mmHg (7.0-24.0); Allen Test ACCEPTAB; Arterial Base Excess -4.7 mmol/L (-3.0-3); Arterial COHb 0.2 % (0.0-3.0); Arterial Fraction of Oxyhgb 97.2 % (93.0-99.0); Arterial HCO3 19.5 mmol/L (22.0-26.0); Arterial MetHb 0.6 % (0.0-1.5); Arterial Total Hemglobin 9.5 g/dl (12.0-18.0); Blood Gas PS 10; MODE VENT - CPAP
--- NOTE | 2016-11-18 10:18 | RADRPT ---
PROCEDURE: XR Chest. CLINICAL INDICATION: Tube placement TECHNIQUE: AP Portable chest. COMPARISON: Chest x-ray 11/17/2016 at 05:51 PM. FINDINGS: The soft tissues and bones are remarkable for an endotracheal tube 4.4 cm above the zoë. An ente fritz tube is noted in the stomach. A right internal jugular catheter is present tip in the superior vena cava. Persistent hazy density in the left lower lobe may represent small effusion with atelect asis or consolidation, minimally increased. The right hemithorax is otherwise clear. The heart siz e is normal. The mediastinum demonstrates mild vascular calcifications of the thoracic aorta. No p neumothorax is present. IMPRESSION: 1. Endotracheal tube now 4.4 cm above the zoë. 2. Minimally increased left lower lobe consolidation or residual atelectasis with small left pleura l effusion. 3. Mild atherosclerotic vascular disease RPTAT: JJ .Cachorro Joseph MD, Date Time Electronically viewed and signed by .Cachorro Joseph MD, on 11/18/2016 10:18 .A/
--- NOTE | 2016-11-18 13:26 | PN ---
Date/Time of Note Date/Time of Note DATE: 11/18/16 TIME: :17 Assessment/Plan VTE Prophylaxis VTE Prophylaxis Intervention: SCD's Lines/Catheters IV Catheter Type (from [facility]): Peripheral IV Urinary Cath still in place: Yes Assessment/Plan Chief Complaint/Hosp Course Probable ovarian cancer vs peritoneal Problems: Assessment/Plan A- doing well other than some tachycardia and hypotension with marginal urine output at this time: likely ONLY due to third spacing which is commonly seen in extensive cytoreductive surgery and exacerbated by the fact that the IV fluids I ordered were changed and the rate reduced by other physician without calling me. The change in IV fluids also accounts for hypokalemia. P- MUST resume higher volume IV fluids for 24-48 hours; will resume D5RL + 20meq KCl per liter will add 500 plasminate Will check H/H later today Will adjust other orders that were done postop and not followed Subjective 24 Hr Interval Summary Free Text/Dictation S- pain control adequate, alert O- Resp- symmetric and pain free CVS- NSR Abd- Soft and clean; minimal tenderness Ext- NT minimal edema A- doing well other than some tachycardia and hypotension with marginal urine output at this time: likely ONLY due to third spacing which is commonly seen in extensive cytoreductive surgery and exacerbated by the fact that the IV fluids I ordered were changed and the rate reduced by other physician without calling me. The change in IV fluids also accounts for hypokalemia. P- MUST resume higher volume IV fluids for 24-48 hours; will resume D5RL + 20meq KCl per liter will add 500 plasminate Will check H/H later today Exam/Review of Systems Vital Signs Vitals Vital Signs Date Time Temp Pulse Resp B/P Pulse Ox O2 Delivery O2 Flow Rate FiO2 11/18/16 13:00 102 23 82/48 99 Mechanical Ventilator 11/18/16 12:00 98.8 11/18/16 11:40 3.0 11/18/16 11:00 40 Intake and Output 11/17/16 11/17/16 11/18/16 15:00 23:00 07:00 Intake Total 3620 ml 1369.166 ml 684.37 ml Output Total 1060 ml 1020 ml 820 ml Balance 2560 ml 349.166 ml -135.63 ml Results Result Diagram: 11/18/1651411/18/16514 Results 24 hrs Laboratory Tests Test 11/17/16 14:50 11/17/16 15:03 11/17/16 15:30 11/17/16 15:38 White Blood Count 14.8 #H Red Blood Count 4.13 L Hemoglobin 11.8 L Hematocrit 36.4 L Mean Corpuscular Volume 88.1 Mean Corpuscular Hemoglobin 28.6 L Mean Corpuscular Hemoglobin Concent 32.4 Red Cell Distribution Width 15.7 H Platelet Count 291 # Mean Platelet Volume 8.5 Neutrophils % 83.9 H Lymphocytes % 9.1 L Monocytes % 5.8 Eosinophils % 0.1 Basophils % 0.3 Nucleated Red Blood Cells % 0.0 Neutrophils # 12.4 H Lymphocytes # 1.3 Monocytes # 0.9 Eosinophils # 0.0 Basophils # 0.1 Nucleated Red Blood Cells # 0.0 Prothrombin Time 17.9 H Prothrombin Time Ratio 1.4 INR International Normalized Ratio 1.47 Sodium Level 138 Potassium Level 3.2 L Chloride Level 110 Carbon Dioxide Level 17 L Anion Gap 14 Blood Urea Nitrogen 10 Creatinine 0.72 Glucose Level 124 # Calcium Level 7.4 L Blood Gas Specimen Source Blood arterial Arterial Blood Date Drawn 11/17/2016 3:30:53 PM Arterial Blood pH (Temp corrected) 7.264 *L Arterial Blood pCO2 (Temp correct) 28.5 L Arterial Blood pO2 (Temp corrected) 102.4 H Arterial Blood HCO3 12.6 L Arterial Blood Base Excess -13.0 L Arterial Blood Oxygen Saturation 96.8 Jhon Test ACCEPTAB Arterial Blood Gas Puncture Site Right Radial Arterial Blood Carboxyhemoglobin 0.3 Arterial Blood Methemoglobin 0.5 Blood Gas A-a O2 Differential 582.1 H Oxyhemoglobin Percent 96.0 Total Hemoglobin 11.5 L Blood Gas Temperature 37.0 Blood Gas Respiration Rate 14.0 Blood Gas Actual Respiration Rate 14 Blood Gas Modality VENT - AC FiO2 100.0 Blood Gas Tidal Volume 500.0 Blood Gas Low PEEP Setting 5.0 Blood Gas Critical Value Read Back Y KWAME CABRALES Blood Gas Notified Whom RODDY Blood Gas Notified Time 11/17/2016 3:39:20 PM Hemoglobin A1c 5.2 Lactic Acid Level 3.6 H Bedside Glucose 185 Test 11/17/16 15:59 11/17/16 17:54 11/17/16 21:02 11/18/16 01:49 Bedside Glucose 147 193 284 H 257 H Test 11/18/16 05:15 11/18/16 05:51 11/18/16 07:53 11/18/16 08:20 White Blood Count 11.9 H Red Blood Count 3.25 #L Hemoglobin 9.4 #L Hematocrit 28.2 #L Mean Corpuscular Volume 86.8 Mean Corpuscular Hemoglobin 28.9 L Mean Corpuscular Hemoglobin Concent 33.3 Red Cell Distribution Width 16.3 H Platelet Count 215 # Mean Platelet Volume 9.6 Neutrophils % 73.0 Band Neutrophils % 14.0 H Lymphocytes % 10.0 L Monocytes % 3.0 Eosinophils % Neutrophils # 8.7 H Lymphocytes # 1.2 Monocytes # 0.4 Eosinophils # Prothrombin Time 16.9 H Prothrombin Time Ratio 1.3 INR International Normalized Ratio 1.37 Sodium Level 137 Potassium Level 2.8 *L Chloride Level 104 Carbon Dioxide Level 21 Anion Gap 15 Blood Urea Nitrogen 11 Creatinine 1.06 H Glucose Level 287 #H Calcium Level 7.3 L Bedside Glucose 260 H 242 H Blood Gas Specimen Source Blood arterial Arterial Blood Date Drawn 11/18/2016 9:50:32 AM Arterial Blood pH (Temp corrected) 7.395 Arterial Blood pCO2 (Temp correct) 32.6 L Arterial Blood pO2 (Temp corrected) 120.3 H Arterial Blood HCO3 19.5 L Arterial Blood Base Excess -4.7 L Arterial Blood Oxygen Saturation 98.0 Jhon Test ACCEPTAB Arterial Blood Gas Puncture Site Right Radial Arterial Blood Carboxyhemoglobin 0.2 Arterial Blood Methemoglobin 0.6 Blood Gas A-a O2 Differential 127.4 H Oxyhemoglobin Percent 97.2 Total Hemoglobin 9.5 L Blood Gas Temperature 37.0 Blood Gas Modality VENT - CPAP FiO2 40.0 Blood Gas Tidal Volume 497.0 Blood Gas Low PEEP Setting 5.0 Blood Gas Pressure Support 10 Blood Gas Notified Whom CW Blood Gas Notified Time 11/18/2016 10:09:43 AM Test 11/18/16 11:22 Bedside Glucose 167 Medications Medications Current Medications Ondansetron HCl (Zofran Tab) 4 mg Q6H PRN PO NAUSEA AND/OR VOMITING Last administered on 11/18/16t 08:09; Admin Dose 4 MG; Start 11/09/16 at 02:00 Metoclopramide HCl (Reglan) 10 mg Q6H PRN IV NAUSEA AND/OR VOMITING Last administered on 11/16/16 21:15; Admin Dose 10 MG; Start 11/09/16 at 02:00 Acetaminophen (Tylenol Tab) 650 mg Q6H PRN PO PAIN LEVEL 1-3 OR FEVER; Start at 02:00 Acetaminophen/ Hydrocodone Bitart ([place] (5/325)) 1 tab Q6H PRN PO MODERATE PAIN LEVEL 4-6 Last administered on 11/16/16 11:27; Admin Dose 1 TAB; Start 11/09/16 at 02:00 Acetaminophen/ Hydrocodone Bitart 2 tab 2 tab Q6H PRN PO SEVERE PAIN LEVEL 7- 10 Last administered on 11/18/16 08:04; Admin Dose 2 TAB; Start 11/09/16 at 02: 00 Sodium Chloride (NS) 250 ml @ 250 mls/hr PRN PRN IV SBP <80 Last administered on 11/11/16 00:52; Admin Dose 250 MLS/HR; Start 11/10/16 at 17:30 Acetylcysteine (Nac) 600 mg BID PO Last administered on 11/17/16 20:52; Admin Dose 600 MG; Start 11/12/16 at 11:30 Lorazepam (Ativan) 1 mg Q4H PRN IV ANXIETY Last administered on 11/14/16 23:32 ; Admin Dose 1 MG; Start 11/14/16 at 23:30 Famotidine (Pepcid) 20 mg BID PO Last administered on 11/17/16 20:52; Admin Dose 20 MG; Start 11/16/16 at 21:30 Al Hydrox/Mg Hydrox/Simethicone (Mag-Al Plus) 30 ml Q6H PRN PO GASTROINTESTINAL UPSET Last administered on 11/16/16 21:15; Admin Dose 30 ML; Start 11/16/16 at 21:30 Diagnostic Test (Pha) 1 ea 1 ea 02 XX Last administered on 11/18/16 02:00; Admin Dose 1 EA; Start 11/18/16 at 02:00 Imipenem/ Cilastatin Sodium 100 ml @ 166.667 mls/hr Q6 IVPB Last administered on 11/18/16 11:23; Admin Dose 166.667 MLS/HR; Start 11/17/16 at 18:00 Vancomycin HCl 750 mg/Sodium Chloride 150 ml @ 75 mls/hr Q12H IVPB Last administered on 11/18/16 05:47; Admin Dose 75 MLS/HR; Start 11/18/16 at 06:30 Sodium Bicarbonate 100 meq/Dextrose/ Sodium Chloride 1,000 ml @ 100 mls/hr Q10H IV Last administered on 11/18/16 03:55; Admin Dose 100 MLS/HR; Start at 18:30 Norepinephrine 250 ml @ 1.875 mls/ hr TITRATE IV Last administered on 20:50; Admin Dose 3.75 MLS/HR; Start 11/17/16 at 18:00 Phenylephrine HCl 80 mg/Dextrose 500 ml @ 37.5 mls/hr TITRATE IV Last administered on 11/18/16 13:02; Admin Dose 97.5 MLS/HR; Start 11/18/16 at 06:15 Potassium Chloride (KCl 20 MEQ/50 ML SW) 50 ml @ 25 mls/hr Q2H IVPB Last administered on 11/18/16 11:02; Admin Dose 25 MLS/HR; Start 11/18/16 at 07:30; Stop 11/18/16 at 13:29 DILLON MARTÍNEZ MD Nov 18, 2016 13:26
--- NOTE | 2016-11-18 13:56 | PN ---
Date/Time of Note Date/Time of Note DATE: 11/18/16 TIME: 13:50 Assessment/Plan VTE Prophylaxis VTE Prophylaxis Intervention: SCD's Lines/Catheters [facility] ([facility] Peripheral IV Urinary Cath still in place: Yes Assessment/Plan Chief Complaint/Hosp Course Probable ovarian cancer vs peritoneal Problems: Subjective 24 Hr Interval Summary Free Text/Dictation NOTE: the post op orders I wrote were not followed. Additionally, Ancef and Flagyl were ordered prophylactically of note; the patient did NOT have any temp elevation and did not have any elevate WBC other than due to immediately post op and due to splenectomy. I will cancel due to necessity and ID consult NOT needed for patient with no suggestion of sepsis. Exam/Review of Systems Vital Signs Vitals Vital Signs Date Time Temp Pulse Resp B/P Pulse Ox O2 Delivery O2 Flow Rate FiO2 11/18/16 13:00 102 23 82/48 99 Mechanical Ventilator 11/18/16 12:00 98.8 11/18/16 11:40 3.0 11/18/16 11:00 40 Intake and Output 11/17/16 11/17/16 11/18/16 15:00 23:00 07:00 Intake Total 3620 ml 1369.166 ml 684.37 ml Output Total 1060 ml 1020 ml 820 ml Balance 2560 ml 349.166 ml -135.63 ml Results Result Diagram: 11/18/16 0515 11/18/16 0515 Results 24 hrs Laboratory Tests Test 11/17/16 14:50 11/17/16 15:03 11/17/16 15:30 11/17/16 15:38 White Blood Count 14.8 #H Red Blood Count 4.13 L Hemoglobin 11.8 L Hematocrit 36.4 L Mean Corpuscular Volume 88.1 Mean Corpuscular Hemoglobin 28.6 L Mean Corpuscular Hemoglobin Concent 32.4 Red Cell Distribution Width 15.7 H Platelet Count 291 # Mean Platelet Volume 8.5 Neutrophils % 83.9 H Lymphocytes % 9.1 L Monocytes % 5.8 Eosinophils % 0.1 Basophils % 0.3 Nucleated Red Blood Cells % 0.0 Neutrophils # 12.4 H Lymphocytes # 1.3 Monocytes # 0.9 Eosinophils # 0.0 Basophils # 0.1 Nucleated Red Blood Cells # 0.0 Prothrombin Time 17.9 H Prothrombin Time Ratio 1.4 INR International Normalized Ratio 1.47 Sodium Level 138 Potassium Level 3.2 L Chloride Level 110 Carbon Dioxide Level 17 L Anion Gap 14 Blood Urea Nitrogen 10 Creatinine 0.72 Glucose Level 124 # Calcium Level 7.4 L Blood Gas Specimen Source Blood arterial Arterial Blood Date Drawn 11/17/2016 3:30:53 PM Arterial Blood pH (Temp corrected) 7.264 *L Arterial Blood pCO2 (Temp correct) 28.5 L Arterial Blood pO2 (Temp corrected) 102.4 H Arterial Blood HCO3 12.6 L Arterial Blood Base Excess -13.0 L Arterial Blood Oxygen Saturation 96.8 Jhon Test ACCEPTAB Arterial Blood Gas Puncture Site Right Radial Arterial Blood Carboxyhemoglobin 0.3 Arterial Blood Methemoglobin 0.5 Blood Gas A-a O2 Differential 582.1 H Oxyhemoglobin Percent 96.0 Total Hemoglobin 11.5 L Blood Gas Temperature 37.0 Blood Gas Respiration Rate 14.0 Blood Gas Actual Respiration Rate 14 Blood Gas Modality VENT - AC FiO2 100.0 Blood Gas Tidal Volume 500.0 Blood Gas Low PEEP Setting 5.0 Blood Gas Critical Value Read Back Y KWAME CABRALES Blood Gas Notified Whom JLD Blood Gas Notified Time 11/17/2016 3:39:20 PM Hemoglobin A1c 5.2 Lactic Acid Level 3.6 H Bedside Glucose 185 Test 11/17/16 15:59 11/17/16 17:54 11/17/16 21:02 11/18/16 01:49 Bedside Glucose 147 193 284 H 257 H Test 11/18/16 05:15 11/18/16 05:51 11/18/16 07:53 11/18/16 08:20 White Blood Count 11.9 H Red Blood Count 3.25 #L Hemoglobin 9.4 #L Hematocrit 28.2 #L Mean Corpuscular Volume 86.8 Mean Corpuscular Hemoglobin 28.9 L Mean Corpuscular Hemoglobin Concent 33.3 Red Cell Distribution Width 16.3 H Platelet Count 215 # Mean Platelet Volume 9.6 Neutrophils % 73.0 Band Neutrophils % 14.0 H Lymphocytes % 10.0 L Monocytes % 3.0 Eosinophils % Neutrophils # 8.7 H Lymphocytes # 1.2 Monocytes # 0.4 Eosinophils # Prothrombin Time 16.9 H Prothrombin Time Ratio 1.3 INR International Normalized Ratio 1.37 Sodium Level 137 Potassium Level 2.8 *L Chloride Level 104 Carbon Dioxide Level 21 Anion Gap 15 Blood Urea Nitrogen 11 Creatinine 1.06 H Glucose Level 287 #H Calcium Level 7.3 L Bedside Glucose 260 H 242 H Blood Gas Specimen Source Blood arterial Arterial Blood Date Drawn 11/18/2016 9:50:32 AM Arterial Blood pH (Temp corrected) 7.395 Arterial Blood pCO2 (Temp correct) 32.6 L Arterial Blood pO2 (Temp corrected) 120.3 H Arterial Blood HCO3 19.5 L Arterial Blood Base Excess -4.7 L Arterial Blood Oxygen Saturation 98.0 Jhon Test ACCEPTAB Arterial Blood Gas Puncture Site Right Radial Arterial Blood Carboxyhemoglobin 0.2 Arterial Blood Methemoglobin 0.6 Blood Gas A-a O2 Differential 127.4 H Oxyhemoglobin Percent 97.2 Total Hemoglobin 9.5 L Blood Gas Temperature 37.0 Blood Gas Modality VENT - CPAP FiO2 40.0 Blood Gas Tidal Volume 497.0 Blood Gas Low PEEP Setting 5.0 Blood Gas Pressure Support 10 Blood Gas Notified Whom CW Blood Gas Notified Time 11/18/2016 10:09:43 AM Test 11/18/16 11:22 Bedside Glucose 167 Medications Medications Current Medications Ondansetron HCl (Zofran Tab) 4 mg Q6H PRN PO NAUSEA AND/OR VOMITING Last administered on 11/18/16 08:09; Admin Dose 4 MG; Start 11/09/16 at 02:00 Metoclopramide HCl (Reglan) 10 mg Q6H PRN IV NAUSEA AND/OR VOMITING Last administered on 11/16/16 21:15; Admin Dose 10 MG; Start 11/09/16 at 02:00 Acetaminophen (Tylenol Tab) 650 mg Q6H PRN PO PAIN LEVEL 1-3 OR FEVER; Start at 02:00 Acetaminophen/ Hydrocodone Bitart ([place] (5/325)) 1 tab Q6H PRN PO MODERATE PAIN LEVEL 4-6 Last administered on 11/16/16 11:27; Admin Dose 1 TAB; Start 11/09/16 at 02:00 Acetaminophen/ Hydrocodone Bitart 2 tab 2 tab Q6H PRN PO SEVERE PAIN LEVEL 7- 10 Last administered on 11/18/16 08:04; Admin Dose 2 TAB; Start 11/09/16 at 02: 00 Sodium Chloride (NS) 250 ml @ 250 mls/hr PRN PRN IV SBP <80 Last administered on 11/11/16 00:52; Admin Dose 250 MLS/HR; Start 11/10/16 at 17:30 Acetylcysteine (Nac) 600 mg BID PO Last administered on 11/17/16 20:52; Admin Dose 600 MG; Start 11/12/16 at 11:30 Lorazepam (Ativan) 1 mg Q4H PRN IV ANXIETY Last administered on 11/14/16 23:32 ; Admin Dose 1 MG; Start 11/14/16 at 23:30 Famotidine (Pepcid) 20 mg BID PO Last administered on 11/17/16 20:52; Admin Dose 20 MG; Start 11/16/16 at 21:30 Al Hydrox/Mg Hydrox/Simethicone (Mag-Al Plus) 30 ml Q6H PRN PO GASTROINTESTINAL UPSET Last administered on 11/16/16 21:15; Admin Dose 30 ML; Start 11/16/16 at 21:30 Diagnostic Test (Pha) 1 ea 1 ea 02 XX Last administered on 11/18/16 02:00; Admin Dose 1 EA; Start 11/18/16 at 02:00 Imipenem/ Cilastatin Sodium 100 ml @ 166.667 mls/hr Q6 IVPB Last administered on 11/18/16 11:23; Admin Dose 166.667 MLS/HR; Start 11/17/16 at 18:00 Vancomycin HCl 750 mg/Sodium Chloride 150 ml @ 75 mls/hr Q12H IVPB Last administered on 11/18/16 05:47; Admin Dose 75 MLS/HR; Start 11/18/16 at 06:30 Sodium Bicarbonate 100 meq/Dextrose/ Sodium Chloride 1,000 ml @ 100 mls/hr Q10H IV Last administered on 11/18/16 03:55; Admin Dose 100 MLS/HR; Start at 18:30 Norepinephrine 250 ml @ 1.875 mls/ hr TITRATE IV Last administered on 20:50; Admin Dose 3.75 MLS/HR; Start 11/17/16 at 18:00 Phenylephrine HCl 80 mg/Dextrose 500 ml @ 37.5 mls/hr TITRATE IV Last administered on 11/18/16 13:02; Admin Dose 97.5 MLS/HR; Start 11/18/16 at 06:15 Potassium Chloride (KCl 20 MEQ/50 ML SW) 50 ml @ 25 mls/hr Q2H IVPB Last administered on 11/18/16t 11:02; Admin Dose 25 MLS/HR; Start 11/18/16 at 07:30; Stop 11/18/16 at 13:29 DILLON MARTÍNEZ MD Nov 18, 2016 13:56
[2016-11-18] MEDS ORDERED: metroNIDAZOLE 500 MG/NS (PMX) 100 ML IVPB SCH (14:00)
[2016-11-18] MEDS ORDERED: CEFAZOLIN 1 GM INJ IM SCH (14:00)
[2016-11-18] MEDS: ALBUMIN HUMAN 5% 250 ML IV SCH ×2 (14:03→14:34)
--- NOTE | 2016-11-18 14:17 | PN ---
Date/Time of Note Date/Time of Note DATE: 11/18/16 TIME: 14:09 Assessment/Plan VTE Prophylaxis VTE Prophylaxis Intervention: SCD's Lines/Catheters IV Catheter Type (from Nrs): Peripheral IV Urinary Cath still in place: Yes Reason Cath still needed: urinary retention Assessment/Plan Chief Complaint/Hosp Course Assessment/Plan: 56 F with: 1. Abd pain likely 2/2 pancreatitis: improved 2. Newly diagnosed Malignancy of Ovarian origin Stage IIIc ovarian cancer ( elevated Ca-125 levels) - s/p extended hysterectomy with bilateral salpingoophorectomy POD # 1 3. Hypochromic anemia 4. Diuretic induced renal insufficiency 5. Mild Pancreatitis: resolved 6. Chronic Hypertension > Mild Asymptomatic Hypotension: also likely 2/2 diuretic therapy for ascites PLAN: re: cancer: Appreciate Dr Pierce review. CT A/P with contrast was done ( see above) since Cr level nL, s/p surgery yesterday extended hysterectomy and BSO POD #1 - f/u post-op rec's including fluid mngt from [facility] - Cefazolin and Flagyl abx per [facility] rec's Continue Mucomyst pre and post CT, with IVF's re: Hypotension: continue fluids and monitor / holding all antihypertensives as well Continue supportive care. PROPHYLAXIS: SCDs/ pepcid Critical care time spent with pt care today = 45 min. Problems: Subjective 24 Hr Interval Summary Free Text/Dictation Pt still on pressor support. Seen by ID, faculty administrator Onc, Heme/onc teams. Exam/Review of Systems Vital Signs Vitals Vital Signs Date Time Temp Pulse Resp B/P Pulse Ox O2 Delivery O2 Flow Rate FiO2 11/18/16 13:00 102 23 82/48 99 Mechanical Ventilator 11/18/16 12:00 98.8 11/18/16 11:40 3.0 11/18/16 11:00 40 Intake and Output 11/17/16 11/17/16 11/18/16 15:00 23:00 07:00 Intake Total 3620 ml 1369.166 ml 684.37 ml Output Total 1060 ml 1020 ml 820 ml Balance 2560 ml 349.166 ml -135.63 ml Exam Constitutional: lying in bed, NG tube in place Head: atraumatic, normocephalic Eyes: PERRL ENMT: mucosa pink and moist Neck: supple Respiratory: clear to auscultation, normal air movement Cardiovascular: regular rate and rhythm Gastrointestinal: bowel sounds, soft, non tender, No distended Neurological: nl mental status Results Result Diagram: 11/18/16 0515 11/18/16 0515 Results 24 hrs Laboratory Tests Test 11/17/16 14:50 11/17/16 15:03 11/17/16 15:30 11/17/16 15:38 White Blood Count 14.8 #H Red Blood Count 4.13 L Hemoglobin 11.8 L Hematocrit 36.4 L Mean Corpuscular Volume 88.1 Mean Corpuscular Hemoglobin 28.6 L Mean Corpuscular Hemoglobin Concent 32.4 Red Cell Distribution Width 15.7 H Platelet Count 291 # Mean Platelet Volume 8.5 Neutrophils % 83.9 H Lymphocytes % 9.1 L Monocytes % 5.8 Eosinophils % 0.1 Basophils % 0.3 Nucleated Red Blood Cells % 0.0 Neutrophils # 12.4 H Lymphocytes # 1.3 Monocytes # 0.9 Eosinophils # 0.0 Basophils # 0.1 Nucleated Red Blood Cells # 0.0 Prothrombin Time 17.9 H Prothrombin Time Ratio 1.4 INR International Normalized Ratio 1.47 Sodium Level 138 Potassium Level 3.2 L Chloride Level 110 Carbon Dioxide Level 17 L Anion Gap 14 Blood Urea Nitrogen 10 Creatinine 0.72 Glucose Level 124 # Calcium Level 7.4 L Blood Gas Specimen Source Blood arterial Arterial Blood Date Drawn 11/17/2016 3:30:53 PM Arterial Blood pH (Temp corrected) 7.264 *L Arterial Blood pCO2 (Temp correct) 28.5 L Arterial Blood pO2 (Temp corrected) 102.4 H Arterial Blood HCO3 12.6 L Arterial Blood Base Excess -13.0 L Arterial Blood Oxygen Saturation 96.8 Jhon Test ACCEPTAB Arterial Blood Gas Puncture Site Right Radial Arterial Blood Carboxyhemoglobin 0.3 Arterial Blood Methemoglobin 0.5 Blood Gas A-a O2 Differential 582.1 H Oxyhemoglobin Percent 96.0 Total Hemoglobin 11.5 L Blood Gas Temperature 37.0 Blood Gas Respiration Rate 14.0 Blood Gas Actual Respiration Rate 14 Blood Gas Modality VENT - AC FiO2 100.0 Blood Gas Tidal Volume 500.0 Blood Gas Low PEEP Setting 5.0 Blood Gas Critical Value Read Back Y KWAME CABRALES Blood Gas Notified Whom RODDY Blood Gas Notified Time 11/17/2016 3:39:20 PM Hemoglobin A1c 5.2 Lactic Acid Level 3.6 H Bedside Glucose 185 Test 11/17/16 15:59 11/17/16 17:54 11/17/16 21:02 11/18/16 01:49 Bedside Glucose 147 193 284 H 257 H Test 11/18/16 05:15 11/18/16 05:51 11/18/16 07:53 11/18/16 08:20 White Blood Count 11.9 H Red Blood Count 3.25 #L Hemoglobin 9.4 #L Hematocrit 28.2 #L Mean Corpuscular Volume 86.8 Mean Corpuscular Hemoglobin 28.9 L Mean Corpuscular Hemoglobin Concent 33.3 Red Cell Distribution Width 16.3 H Platelet Count 215 # Mean Platelet Volume 9.6 Neutrophils % 73.0 Band Neutrophils % 14.0 H Lymphocytes % 10.0 L Monocytes % 3.0 Eosinophils % Neutrophils # 8.7 H Lymphocytes # 1.2 Monocytes # 0.4 Eosinophils # Prothrombin Time 16.9 H Prothrombin Time Ratio 1.3 INR International Normalized Ratio 1.37 Sodium Level 137 Potassium Level 2.8 *L Chloride Level 104 Carbon Dioxide Level 21 Anion Gap 15 Blood Urea Nitrogen 11 Creatinine 1.06 H Glucose Level 287 #H Calcium Level 7.3 L Bedside Glucose 260 H 242 H Blood Gas Specimen Source Blood arterial Arterial Blood Date Drawn 11/18/2016 9:50:32 AM Arterial Blood pH (Temp corrected) 7.395 Arterial Blood pCO2 (Temp correct) 32.6 L Arterial Blood pO2 (Temp corrected) 120.3 H Arterial Blood HCO3 19.5 L Arterial Blood Base Excess -4.7 L Arterial Blood Oxygen Saturation 98.0 Jhon Test ACCEPTAB Arterial Blood Gas Puncture Site Right Radial Arterial Blood Carboxyhemoglobin 0.2 Arterial Blood Methemoglobin 0.6 Blood Gas A-a O2 Differential 127.4 H Oxyhemoglobin Percent 97.2 Total Hemoglobin 9.5 L Blood Gas Temperature 37.0 Blood Gas Modality VENT - CPAP FiO2 40.0 Blood Gas Tidal Volume 497.0 Blood Gas Low PEEP Setting 5.0 Blood Gas Pressure Support 10 Blood Gas Notified Whom CW Blood Gas Notified Time 11/18/2016 10:09:43 AM Test 11/18/16 11:22 Bedside Glucose 167 Medications Medications Current Medications Ondansetron HCl (Zofran Tab) 4 mg Q6H PRN PO NAUSEA AND/OR VOMITING Last administered on 11/18/16 08:09; Admin Dose 4 MG; Start 11/09/16 at 02:00 Metoclopramide HCl (Reglan) 10 mg Q6H PRN IV NAUSEA AND/OR VOMITING Last administered on 11/16/16 21:15; Admin Dose 10 MG; Start 11/09/16 at 02:00 Acetaminophen (Tylenol Tab) 650 mg Q6H PRN PO PAIN LEVEL 1-3 OR FEVER; Start at 02:00 Acetaminophen/ Hydrocodone Bitart ([place] (5/325)) 1 tab Q6H PRN PO MODERATE PAIN LEVEL 4-6 Last administered on 11/16/16 11:27; Admin Dose 1 TAB; Start 11/09/16 at 02:00 Acetaminophen/ Hydrocodone Bitart 2 tab 2 tab Q6H PRN PO SEVERE PAIN LEVEL 7- 10 Last administered on 11/18/16 08:04; Admin Dose 2 TAB; Start 11/09/16 at 02: 00 Sodium Chloride (NS) 250 ml @ 250 mls/hr PRN PRN IV SBP <80 Last administered on 11/11/16 00:52; Admin Dose 250 MLS/HR; Start 11/10/16 at 17:30 Acetylcysteine (Nac) 600 mg BID PO Last administered on 11/17/16 20:52; Admin Dose 600 MG; Start 11/12/16 at 11:30 Lorazepam (Ativan) 1 mg Q4H PRN IV ANXIETY Last administered on 11/14/16 23:32 ; Admin Dose 1 MG; Start 11/14/16 at 23:30 Famotidine (Pepcid) 20 mg BID PO Last administered on 11/17/16 20:52; Admin Dose 20 MG; Start 11/16/16 at 21:30 Al Hydrox/Mg Hydrox/Simethicone (Mag-Al Plus) 30 ml Q6H PRN PO GASTROINTESTINAL UPSET Last administered on 11/16/16 21:15; Admin Dose 30 ML; Start 11/16/16 at 21:30 Diagnostic Test (Pha) 1 ea 1 ea 02 XX Last administered on 11/18/16 02:00; Admin Dose 1 EA; Start 11/18/16 at 02:00 Norepinephrine 250 ml @ 1.875 mls/ hr TITRATE IV Last administered on 20:50; Admin Dose 3.75 MLS/HR; Start 11/17/16 at 18:00 Phenylephrine HCl 80 mg/Dextrose 500 ml @ 37.5 mls/hr TITRATE IV Last administered on 11/18/16 13:02; Admin Dose 97.5 MLS/HR; Start 11/18/16 at 06:15 Potassium Cl/ Dextrose/Lact Ringer's 1,000 ml @ 150 mls/hr Q6H40M IV ; Start at 14:00 Albumin Human 250 ml @ 250 mls/hr Q1H IV Last administered on 11/18/16 14:03 ; Admin Dose 250 MLS/HR; Start 11/18/16 at 13:30; Stop 11/18/16 at 15:29 Hydromorphone HCl (Dilaudid) 1 mg Q2HWA PRN IV PAIN; Start 11/18/16 at 13:30 Ondansetron HCl 4 mg 4 mg Q6H PRN IV NAUSEA AND/OR VOMITING; Start 11/18/16 at 14:00 Cefazolin Sodium 50 ml @ 100 mls/hr Q8 IVPB ; Start 11/18/16 at 14:00; Stop at 06:29 Metronidazole (Flagyl 500 Mg (Pmx)) 100 ml @ 100 mls/hr Q8 IVPB ; Start at 14:00; Stop 11/20/16 at 06:59 QUINCY KU Nov 18, 2016 14:17
[2016-11-18] MEDS: CEFAZOLIN 1 GM/50 ML (PMX) 50 ML IVPB SCH ×2 (14:19→21:40)
[2016-11-18] MEDS: HYDROmorphONE 1 MG/ML SYG IV PRN ×2 (14:23→19:33)
[2016-11-18] MEDS: D5-LR + KCL 20 MEQ 1,000 ML IV SCH ×2 (14:23→20:50)
[2016-11-18] MEDS: metroNIDAZOLE 500 MG/NS (PMX) 100 ML IVPB SCH ×2 (15:02→21:46)
[2016-11-18 18:12] LABS: ADD SCAN DIFF NO
[2016-11-18 18:14] LABS: HEMOGLOBIN 7.7 g/dl (12.0-16.0); MEAN CORPUSCULAR HEMOGLOBIN 28.1 pg (29.0-33.0); MEAN CORPUSCULAR HGB CONC 32.1 g/dl (32.0-37.0); MEAN CORPUSCULAR VOLUME 87.6 fl (82.0-101.0); MEAN PLATELET VOLUME 9.4 fl (7.4-10.4); PLATELET COUNT 188 10^3/UL (140-415); RED BLOOD COUNT 2.74 10^6/ul (4.20-5.40); RED CELL DISTRIBUTION WIDTH 16.7 % (11.5-14.5); WHITE BLOOD COUNT 17.4 10^3/ul (4.8-10.8)
[2016-11-18 18:24] LABS: POTASSIUM 3.2 mmol/L (3.5-5.1)
[2016-11-18 18:27] LABS: CREATININE 0.89 mg/dl (0.44-1.00)
[2016-11-18 18:28] LABS: CALCIUM 6.9 mg/dl (8.4-10.2)
[2016-11-18 18:54] LABS: LYMPHOCYTES # 1.6 10^3/ul (0.8-2.9); MONOCYTE # 0.5 10^3/ul (0.3-0.9); NEUTROPHIL # 13.1 10^3/ul (1.6-7.5)
[2016-11-18] MEDS ORDERED: DIPHENHYDRAMINE 50 MG INJ IV ONE (19:00)
[2016-11-18] MEDS ORDERED: POTASSIUM CHLORIDE 20 MEQ in SOD CHLORIDE 0.9% 100 ML IVPB ONE (19:00)
[2016-11-18] MEDS ORDERED: ACETAMINOPHEN 325 MG SUPP PR ONE (19:00)
[2016-11-18] MEDS ORDERED: POTASSIUM CHLORIDE 50 ML ONE (19:37)
[2016-11-18] MEDS ORDERED: POTASSIUM CHLORIDE 50 ML IVPB SCH (19:45)
--- NOTE | 2016-11-18 20:17 | PN ---
Date/Time of Note Date/Time of Note DATE: 11/18/16 TIME: 20:11 Assessment/Plan VTE Prophylaxis VTE Prophylaxis Intervention: SCD's Lines/Catheters IV C[facility] Type (from [facility] Peripheral IV Urinary Cath still in place: Yes Reason Cath still needed: urinary retention Assessment/Plan Chief Complaint/Hosp Course Probable ovarian cancer vs peritoneal Problems: Assessment/Plan A- stage IIIc ov ca H/H decline due to multiple possible reasons including dilutional and ooze from multiple surfaces NOTE: elevated WBC is expected due to BOTH immediately postop AND will maintain several days due to SPLENECTOMY P- Will transfuse for O2 delivery and maintain current IV fluids. Exam/Review of Systems Vital Signs Vitals Vital Signs Date Time Temp Pulse Resp B/P Pulse Ox O2 Delivery O2 Flow Rate FiO2 11/18/16 19:15 91 17 102/57 100 Nasal Cannula 2.0 11/18/16 16:00 98.8 11/18/16 11:00 40 Intake and Output 11/17/16 11/17/16 11/18/16 15:00 23:00 07:00 Intake Total 3620 ml 1369.166 ml 684.37 ml Output Total 1060 ml 1020 ml 820 ml Balance 2560 ml 349.166 ml -135.63 ml Results Result Diagram: 11/18/16 1745 11/18/16 1745 Results 24 hrs Laboratory Tests Test 11/17/16 21:02 11/18/16 01:49 11/18/16 05:15 11/18/16 05:51 Bedside Glucose 284 H 257 H 260 H White Blood Count 11.9 H Red Blood Count 3.25 #L Hemoglobin 9.4 #L Hematocrit 28.2 #L Mean Corpuscular Volume 86.8 Mean Corpuscular Hemoglobin 28.9 L Mean Corpuscular Hemoglobin Concent 33.3 Red Cell Distribution Width 16.3 H Platelet Count 215 # Mean Platelet Volume 9.6 Neutrophils % 73.0 Band Neutrophils % 14.0 H Lymphocytes % 10.0 L Monocytes % 3.0 Eosinophils % Neutrophils # 8.7 H Lymphocytes # 1.2 Monocytes # 0.4 Eosinophils # Prothrombin Time 16.9 H Prothrombin Time Ratio 1.3 INR International Normalized Ratio 1.37 Sodium Level 137 Potassium Level 2.8 *L Chloride Level 104 Carbon Dioxide Level 21 Anion Gap 15 Blood Urea Nitrogen 11 Creatinine 1.06 H Glucose Level 287 #H Calcium Level 7.3 L Test 11/18/16 07:53 11/18/16 08:20 11/18/16 11:22 11/18/16 17:11 Bedside Glucose 242 H 167 160 Blood Gas Specimen Source Blood arterial Arterial Blood Date Drawn 11/18/2016 9:50:32 AM Arterial Blood pH (Temp corrected) 7.395 Arterial Blood pCO2 (Temp correct) 32.6 L Arterial Blood pO2 (Temp corrected) 120.3 H Arterial Blood HCO3 19.5 L Arterial Blood Base Excess -4.7 L Arterial Blood Oxygen Saturation 98.0 Jhon Test ACCEPTAB Arterial Blood Gas Puncture Site Right Radial Arterial Blood Carboxyhemoglobin 0.2 Arterial Blood Methemoglobin 0.6 Blood Gas A-a O2 Differential 127.4 H Oxyhemoglobin Percent 97.2 Total Hemoglobin 9.5 L Blood Gas Temperature 37.0 Blood Gas Modality VENT - CPAP FiO2 40.0 Blood Gas Tidal Volume 497.0 Blood Gas Low PEEP Setting 5.0 Blood Gas Pressure Support 10 Blood Gas Notified Whom CW Blood Gas Notified Time 11/18/2016 10:09:43 AM Test 11/18/16 17:45 White Blood Count 17.4 #H Red Blood Count 2.74 L Hemoglobin 7.7 L Hematocrit 24.0 L Mean Corpuscular Volume 87.6 Mean Corpuscular Hemoglobin 28.1 L Mean Corpuscular Hemoglobin Concent 32.1 Red Cell Distribution Width 16.7 H Platelet Count 188 Mean Platelet Volume 9.4 Neutrophils % 75.0 Band Neutrophils % 13.0 H Lymphocytes % 9.0 L Monocytes % 3.0 Eosinophils % Neutrophils # 13.1 H Lymphocytes # 1.6 Monocytes # 0.5 Eosinophils # Sodium Level 137 Potassium Level 3.2 L Chloride Level 104 Carbon Dioxide Level 23 Anion Gap 13 Blood Urea Nitrogen 11 Creatinine 0.89 Glucose Level 169 # Calcium Level 6.9 L Medications Medications Current Medications Ondansetron HCl (Zofran Tab) 4 mg Q6H PRN PO NAUSEA AND/OR VOMITING Last administered on 11/18/16 08:09; Admin Dose 4 MG; Start 11/09/16 at 02:00 Metoclopramide HCl (Reglan) 10 mg Q6H PRN IV NAUSEA AND/OR VOMITING Last administered on 11/16/16 21:15; Admin Dose 10 MG; Start 11/09/16 at 02:00 Acetaminophen (Tylenol Tab) 650 mg Q6H PRN PO PAIN LEVEL 1-3 OR FEVER; Start at 02:00 Acetaminophen/ Hydrocodone Bitart ([place] (5/325)) 1 tab Q6H PRN PO MODERATE PAIN LEVEL 4-6 Last administered on 11/16/16 11:27; Admin Dose 1 TAB; Start 11/09/16 at 02:00 Acetaminophen/ Hydrocodone Bitart 2 tab 2 tab Q6H PRN PO SEVERE PAIN LEVEL 7- 10 Last administered on 11/18/16 08:04; Admin Dose 2 TAB; Start 11/09/16 at 02: 00 Sodium Chloride (NS) 250 ml @ 250 mls/hr PRN PRN IV SBP <80 Last administered on 11/11/16 00:52; Admin Dose 250 MLS/HR; Start 11/10/16 at 17:30 Acetylcysteine (Nac) 600 mg BID PO Last administered on 11/17/16 20:52; Admin Dose 600 MG; Start 11/12/16 at 11:30 Lorazepam (Ativan) 1 mg Q4H PRN IV ANXIETY Last administered on 11/14/16 23:32 ; Admin Dose 1 MG; Start 11/14/16 at 23:30 Famotidine (Pepcid) 20 mg BID PO Last administered on 11/17/16 20:52; Admin Dose 20 MG; Start 11/16/16 at 21:30 Al Hydrox/Mg Hydrox/Simethicone (Mag-Al Plus) 30 ml Q6H PRN PO GASTROINTESTINAL UPSET Last administered on 11/16/16 21:15; Admin Dose 30 ML; Start 11/16/16 at 21:30 Diagnostic Test (Pha) 1 ea 1 ea 02 XX Last administered on 11/18/16 02:00; Admin Dose 1 EA; Start 11/18/16 at 02:00 Phenylephrine HCl 80 mg/Dextrose 500 ml @ 37.5 mls/hr TITRATE IV Last administered on 11/18/16 17:21; Admin Dose 112.5 MLS/HR; Start 11/18/16 at 06: 15 Potassium Cl/ Dextrose/Lact Ringer's (D5-Lr + KCl 20 Meq) 1,000 ml @ 150 mls/ hr Q6H40M IV Last administered on 11/18/16 14:23; Admin Dose 150 MLS/HR; Start 11/18/16 at 14:00 Hydromorphone HCl (Dilaudid) 1 mg Q2HWA PRN IV PAIN Last administered on 19:33; Admin Dose 1 MG; Start 11/18/16 at 13:30 Ondansetron HCl 4 mg 4 mg Q6H PRN IV NAUSEA AND/OR VOMITING; Start 11/18/16 at 14:00 Cefazolin Sodium 50 ml @ 100 mls/hr Q8 IVPB Last administered on 11/18/16 14: 19; Admin Dose 100 MLS/HR; Start 11/18/16 at 14:00; Stop 11/20/16 at 06:29 Metronidazole 100 ml @ 100 mls/hr Q8 IVPB Last administered on 11/18/16 15:02 ; Admin Dose 100 MLS/HR; Start 11/18/16 at 14:00; Stop 11/20/16 at 06:59 Norepinephrine 16 mg/Dextrose 500 ml @ 1.87 mls/hr TITRATE IV ; Start 11/18/16 at 15:00 Potassium Chloride (KCl 20 MEQ/50 ML SW) 50 ml @ 25 mls/hr NOW IVPB Last administered on 11/18/16 19:49; Admin Dose 25 MLS/HR; Start 11/18/16 at 19:45; Stop 11/18/16 at 20:44 Octreotide Acetate (Sandostatin) 50 mcg TID SC ; Start 11/18/16 at 21:00; Status UNV DILLON MARTÍNEZ MD Nov 18, 2016 20:16
[2016-11-18] MEDS: OCTREOTIDE 50 MCG INJ SC SCH (21:46)
[2016-11-19] VITALS (95 sets, daily range): BP systolic 67–132; BP diastolic 38–95; PULSE 78–126; RESP 12–27
--- NOTE | 2016-11-19 01:11 | RADRPT ---
PROCEDURE: XR Chest. CLINICAL INDICATION: Respiratory failure. Right mainstem intubation with collapse of the left lung . TECHNIQUE: Single frontal view of the chest. COMPARISON: Today, about 2-1/2 hours ago. FINDINGS: Endotracheal intubation is seen with tip about 45 mm above the zoë. Previously seen right mainst em bronchus intubation is resolved. Right central venous jugular line again seen with the tip in th e superior vena cava. A new right central venous subclavian line is seen, with tip also in the supe rior vena cava. Nasogastric tube is seen with tip and sideport in the gastric lumen. Cardiomegaly. The left lung is reinflated with mild persistent left lung base atelectasis suggestin g partial collapse of the left lower lobe. There is a small left pleural effusion. The right lung r emains clear. No signs of pneumothorax are seen. The osseous structures and soft tissues are unremarkable. IMPRESSION: 1. Interval resolution of right mainstem bronchus intubation, with endotracheal intubation tip now about 45 mm above the zoë. 2. Substantial reinflation of the left lung, with persistent left lung base atelectasis, perhaps re presenting persistent partial collapse of the left lower lobe. 3. Small left pleural effusion is seen. 4. New right central venous subclavian line is seen with tip in the superior vena cava. 5. No significant change in right central venous jugular line. RPTAT: [facility] Physician Alexandra Date Time Electronically viewed and signed by Physician Alexandra on 11/19/2016 01:11 RS/
[2016-11-19] MEDS: ACCU-CHEK XX SCH ×2 (02:00→23:14)
[2016-11-19] MEDS: PHENYLephrine 80 MG in DEXTROSE 5% 492 ML IV SCH ×4 (02:01→17:54)
[2016-11-19] MEDS: HYDROmorphONE 1 MG/ML SYG IV PRN ×3 (04:38→20:07)
[2016-11-19] MEDS: D5-LR + KCL 20 MEQ 1,000 ML IV SCH ×4 (04:40→21:58)
[2016-11-19] MEDS: metroNIDAZOLE 500 MG/NS (PMX) 100 ML IVPB SCH ×3 (04:42→21:55)
--- NOTE | 2016-11-19 05:00 | PN ---
DATE: 11/18/2016 INFECTIOUS DISEASE PROGRESS NOTE SUBJECTIVE: The patient was extubated. She is alert, denies pain, looks comfortable, no fevers. She is on low dose pressors. LABORATORY DATA: WBC 17.4, platelets 188, neutrophils 75, bands 13, lymphs 9, monos 3. BUN 11, creatinine 0.89. MICROBIOLOGY: Blood cultures and ascitic fluid cultures have been negative. DIAGNOSTICS: Chest x-ray this morning revealed left lower lobe atelectasis versus consolidation. INDWELLINGS: NG tube, JPs, Yarbrough catheter. ANTIMICROBIALS: The patient is on 1. Ancef. 2. Flagyl. Status post 3. Vancomycin 4. Imipenem. OBJECTIVE: GENERAL: This is a well-developed, obese, middle-aged woman who is awake, in no distress. HEENT: Head atraumatic, normocephalic. Sclerae anicteric. Buccal mucosa dry. NECK: Supple. CHEST: Rise symmetrical. Breath sounds diminished to bases. HEART: S1, S2. ABDOMEN: Obese, soft, guarding on palpation. Abdominal dressing intact. EXTREMITIES: Without cyanosis. ASSESSMENT 1. Leukocytosis, likely reactive. 2. Stage III ovarian cancer status post extended hysterectomy with bilateral salpingo-oophorectomy, postoperative day #2. 3. Hypertension. 4. Status post respiratory failure, extubated postoperatively. 5. History of cirrhosis. PLAN: The patient is clinically stable, as per discussion with Dr. Pierce there is no evidence of sepsis, she is prophylactic antibiotics postoperatively. All cultures have been negative. We will see on p.r.n. basis. Dictated By: LASHELL WELLS [employer] M[employer]ER REPAIRER for TORRIE NEGRO/STEVE Conf#: [id number] DID#: [id number] MTDD
[2016-11-19 05:23] LABS: ADD SCAN DIFF NO
[2016-11-19 05:48] LABS: HEMATOCRIT 33.5 % (37.0-47.0); HEMOGLOBIN 11.2 g/dl (12.0-16.0); MEAN CORPUSCULAR HEMOGLOBIN 28.6 pg (29.0-33.0); MEAN CORPUSCULAR HGB CONC 33.4 g/dl (32.0-37.0); MEAN CORPUSCULAR VOLUME 85.5 fl (82.0-101.0); MEAN PLATELET VOLUME 9.8 fl (7.4-10.4); PLATELET COUNT 196 10^3/UL (140-415); RED BLOOD COUNT 3.92 10^6/ul (4.20-5.40); RED CELL DISTRIBUTION WIDTH 16.1 % (11.5-14.5); WHITE BLOOD COUNT 21.2 10^3/ul (4.8-10.8)
[2016-11-19 05:54] LABS: POTASSIUM 3.5 mmol/L (3.5-5.1)
[2016-11-19 05:56] LABS: CREATININE 0.8 mg/dl (0.44-1.00)
[2016-11-19 05:57] LABS: CALCIUM 7.1 mg/dl (8.4-10.2)
[2016-11-19] MEDS: CEFAZOLIN 1 GM/50 ML (PMX) 50 ML IVPB SCH ×3 (06:01→21:09)
[2016-11-19] MEDS: INSULIN ASPART [NOVOLOG] 3 ML PEN SC SCH ×4 (07:35→21:00)
[2016-11-19] MEDS: ACETYLCYSTEINE 600 MG CAP PO SCH ×2 (09:00→20:23)
[2016-11-19] MEDS: FAMOTIDINE 20 MG TAB PO SCH ×2 (09:00→20:23)
[2016-11-19] MEDS: OCTREOTIDE 50 MCG INJ SC SCH ×4 (09:03→22:32)
[2016-11-19 09:46] LABS: ADD UMIC YES; URINE BILIRUBIN (Dip) NEGATIVE (NEGATIVE); URINE BLOOD (Dip) TRACE (NEGATIVE); URINE COLOR LT. YELLOW (YELLOW); URINE GLUCOSE (Dip) NEGATIVE (NEGATIVE); URINE KETONES (Dip) NEGATIVE (NEGATIVE); URINE LEUKOCYTE ESTERASE (Dip) NEGATIVE (NEGATIVE); URINE NITRITE (Dip) NEGATIVE (NEGATIVE); URINE TOTAL PROTEIN (Dip) NEGATIVE (NEGATIVE); URINE UROBILINOGEN (Dip) 0.2 E.U./dL (0.1-1.0)
[2016-11-19 10:12] LABS: LYMPHOCYTES # 1.3 10^3/ul (0.8-2.9); MONOCYTE # 0.6 10^3/ul (0.3-0.9); NEUTROPHIL # 16.1 10^3/ul (1.6-7.5)
[2016-11-19 10:20] LABS: SQUAMOUS EPITHELIAL CELL,UR OCCASIONAL; URINE RBCS 0-2 /HPF (0)
--- NOTE | 2016-11-19 12:10 | CONS ---
Date/Time of Note Date/Time of Note DATE: 11/19/16 TIME: 12:08 Assessment/Plan Assessment/Plan Additional Assessment/Plan Patient currently on phenylephrine drip at 150 mics per minute. Assessment recommendations; 1. Patient admitted for positive ascites fluid cytology underwent laparotomy with discovery of ovarian cancer with peritoneal metastasis status post debulking surgery. 2. Postop respiratory failure no successfully extubated yesterday afternoon. 3. Persistent hypotension, requiring pressor support. 4. Marked improvement in chest x-ray after endotracheal tube was pulled out the level of aortic arch with complete resolution of left lung atelectasis. Continue current supportive care. Consultation Date/Type/Reason Admit Date/Time Nov 09, 2016 at 00:55 Initial Consult Date 11/17/16 Type of Consultation: Pulmonary/critical care Referring Provider: JYOTHI BENAVIDES 24 HR Interval Summary Free Text/Dictation Vision condition is stable. She was successfully extubated yesterday afternoon. Remains completely awake alert. Denies any shortness of breath, chest pain, fever chills. Denies any abdominal pain. Any nausea vomiting. General exam; middle-aged woman, awake alert currently in no distress. Exam/Review of Systems Vital Signs Vitals Vital Signs Date Time Temp Pulse Resp B/P Pulse Ox O2 Delivery O2 Flow Rate FiO2 11/19/16 11:15 96 18 113/60 99 Nasal Cannula 1.0 11/19/16 08:00 98.1 11/18/16 20:00 27 Intake and Output 11/18/16 11/18/16 11/19/16 15:00 23:00 07:00 Intake Total 2243.74 ml 2787.5 ml 1712.5 ml Output Total 575 ml 1030 ml 910 ml Balance 1668.74 ml 1757.5 ml 802.5 ml Exam HEENT exam is; supple neck, no JVD. No lymphadenopathy. Midline trachea. Pupils are equal and reactive to light. Patient has fair dentition. Chest exam is; clear to auscultation. S1-S2 audible, no murmurs. Regular rhythm. Abdomen examination; soft, minimal midline tenderness. Midline dressing in place. Bowel sounds audible. There is a JEWEL drain in place. Extremity exam; no peripheral edema. Pulses 1+ bilaterally. POMOLOGIST examination; no focal deficit. Results Result Diagram: 11/19/16 0350 11/19/16 0350 Results 24 hrs Laboratory Tests Test 11/18/16 17:11 11/18/16 17:45 11/18/16 21:25 11/19/16 02:28 Bedside Glucose 160 159 168 White Blood Count 17.4 #H Red Blood Count 2.74 L Hemoglobin 7.7 L Hematocrit 24.0 L Mean Corpuscular Volume 87.6 Mean Corpuscular Hemoglobin 28.1 L Mean Corpuscular Hemoglobin Concent 32.1 Red Cell Distribution Width 16.7 H Platelet Count 188 Mean Platelet Volume 9.4 Neutrophils % 75.0 Band Neutrophils % 13.0 H Lymphocytes % 9.0 L Monocytes % 3.0 Eosinophils % Neutrophils # 13.1 H Lymphocytes # 1.6 Monocytes # 0.5 Eosinophils # Sodium Level 137 Potassium Level 3.2 L Chloride Level 104 Carbon Dioxide Level 23 Anion Gap 13 Blood Urea Nitrogen 11 Creatinine 0.89 Glucose Level 169 # Calcium Level 6.9 L Test 11/19/16 03:00 11/19/16 03:50 11/19/16 08:00 Urine Color LT. YELLOW Urine Clarity CLEAR Urine pH 5.5 Urine Specific [place] <=1.005 L Urine Ketones NEGATIVE Urine Nitrite NEGATIVE Urine Bilirubin NEGATIVE Urine Urobilinogen 0.2 E.U./dL Urine Leukocyte Esterase NEGATIVE Urine Microscopic RBC 0-2 Urine Microscopic WBC NONE SEEN Urine Squamous Epithelial Cells OCCASIONAL Urine Hemoglobin TRACE Urine Glucose NEGATIVE Urine Total Protein NEGATIVE White Blood Count 21.2 #H Red Blood Count 3.92 #L Hemoglobin 11.2 #L Hematocrit 33.5 #L Mean Corpuscular Volume 85.5 Mean Corpuscular Hemoglobin 28.6 L Mean Corpuscular Hemoglobin Concent 33.4 Red Cell Distribution Width 16.1 H Platelet Count 196 Mean Platelet Volume 9.8 Neutrophils % 76.0 Band Neutrophils % 15.0 H Lymphocytes % 6.0 L Monocytes % 3.0 Eosinophils % Neutrophils # 16.1 H Lymphocytes # 1.3 Monocytes # 0.6 Eosinophils # Sodium Level 138 Potassium Level 3.5 Chloride Level 104 Carbon Dioxide Level 25 Anion Gap 13 Blood Urea Nitrogen 9 Creatinine 0.80 Glucose Level 150 Calcium Level 7.1 L Bedside Glucose 140 Medications Medications Current Medications Ondansetron HCl (Zofran Tab) 4 mg Q6H PRN PO NAUSEA AND/OR VOMITING Last administered on 11/18/16 08:09; Admin Dose 4 MG; Start 4/6/17 at 02:00 Metoclopramide HCl (Reglan) 10 mg Q6H PRN IV NAUSEA AND/OR VOMITING Last administered on 11/16/16 21:15; Admin Dose 10 MG; Start 11/09/16 at 02:00 Acetaminophen (Tylenol Tab) 650 mg Q6H PRN PO PAIN LEVEL 1-3 OR FEVER; Start at 02:00 Acetaminophen/ Hydrocodone Bitart ([place] (5/325)) 1 tab Q6H PRN PO MODERATE PAIN LEVEL 4-6 Last administered on 11/16/16 11:27; Admin Dose 1 TAB; Start 11/09/16 at 02:00 Acetaminophen/ Hydrocodone Bitart 2 tab 2 tab Q6H PRN PO SEVERE PAIN LEVEL 7- 10 Last administered on 11/18/16 08:04; Admin Dose 2 TAB; Start 11/09/16 at 02: 00 Sodium Chloride (NS) 250 ml @ 250 mls/hr PRN PRN IV SBP <80 Last administered on 11/11/16 00:52; Admin Dose 250 MLS/HR; Start 11/10/16 at 17:30 Acetylcysteine (Nac) 600 mg BID PO Last administered on 11/18/16 20:49; Admin Dose 600 MG; Start 11/12/16 at 11:30 Lorazepam (Ativan) 1 mg Q4H PRN IV ANXIETY Last administered on 11/14/16 23:32 ; Admin Dose 1 MG; Start 11/14/16 at 23:30 Famotidine (Pepcid) 20 mg BID PO Last administered on 11/18/16 20:49; Admin Dose 20 MG; Start 11/16/16 at 21:30 Al Hydrox/Mg Hydrox/Simethicone (Mag-Al Plus) 30 ml Q6H PRN PO GASTROINTESTINAL UPSET Last administered on 11/16/16 21:15; Admin Dose 30 ML; Start 11/16/16 at 21:30 Diagnostic Test (Pha) 1 ea 1 ea 02 XX Last administered on 11/18/16 02:00; Admin Dose 1 EA; Start 11/18/16 at 02:00 Phenylephrine HCl 80 mg/Dextrose 500 ml @ 37.5 mls/hr TITRATE IV Last administered on 11/19/16 09:02; Admin Dose 56.25 MLS/HR; Start 11/18/16 at 06: 15 Potassium Cl/ Dextrose/Lact Ringer's (D5-Lr + KCl 20 Meq) 1,000 ml @ 150 mls/ hr Q6H40M IV Last administered on 11/19/16 10:19; Admin Dose 150 MLS/HR; Start 11/18/16 at 14:00 Hydromorphone HCl (Dilaudid) 1 mg Q2HWA PRN IV PAIN Last administered on 04:38; Admin Dose 1 MG; Start 11/18/16 at 13:30 Ondansetron HCl 4 mg 4 mg Q6H PRN IV NAUSEA AND/OR VOMITING; Start 11/18/16 at 14:00 Cefazolin Sodium 50 ml @ 100 mls/hr Q8 IVPB Last administered on 11/19/16 06: 02; Admin Dose 100 MLS/HR; Start 11/18/16 at 14:00; Stop 11/20/16 at 06:29 Metronidazole 100 ml @ 100 mls/hr Q8 IVPB Last administered on 11/19/16 04:42 ; Admin Dose 100 MLS/HR; Start 11/18/16 at 14:00; Stop 11/20/16 at 06:59 Norepinephrine/ Dextrose (Levophed/D5W) 500 ml @ 1.87 mls/hr TITRATE IV ; Start 11/18/16 at 15:00 Octreotide Acetate (Sandostatin) 50 mcg TID SC Last administered on 11/19/16 09:07; Admin Dose 50 MCG; Start 11/18/16 at 21:00 KATHERIN GARCIA Nov 19, 2016 12:10
--- NOTE | 2016-11-19 12:26 | PN ---
Date/Time of Note Date/Time of Note DATE: 11/19/16 TIME: 12:21 Assessment/Plan VTE Prophylaxis VTE Prophylaxis Intervention: SCD's Lines/Catheters IV Catheter Type (from Nrs): Central Line Central line still needed: Yes Urinary Cath still in place: Yes Reason Cath still needed: urinary retention Assessment/Plan Chief Complaint/Hosp Course Assessment/Plan: 56 F with: 1. Abd pain likely 2/2 pancreatitis: improved 2. Newly diagnosed Malignancy of Ovarian origin Stage IIIc ovarian cancer ( elevated Ca-125 levels) - s/p extended hysterectomy with bilateral salpingoophorectomy POD # 2 3. Hypochromic anemia 4. Diuretic induced renal insufficiency 5. Mild Pancreatitis: resolved 6. Chronic Hypertension > Mild Asymptomatic Hypotension: also likely 2/2 diuretic therapy for ascites PLAN: re: cancer: Appreciate Dr Pierce review. CT A/P with contrast was done ( see above) since Cr level nL, s/p surgery extended hysterectomy and BSO POD # 2 - f/u post-op rec's including fluid mngt from [facility] Onc team, pressor support - Cefazolin and Flagyl abx per [facility] Onc rec's Continue Mucomyst pre and post CT, with IVF's re: Hypotension: continue fluids and monitor / holding all antihypertensives as well Continue supportive care. PROPHYLAXIS: SCDs/ pepcid Critical care time spent with pt care today = 40 min. Problems: Subjective 24 Hr Interval Summary Free Text/Dictation Pt had pRBC transfusion yesterday, no bleeding. NG tube in place. Still on pressor support. Exam/Review of Systems Vital Signs Vitals Vital Signs Date Time Temp Pulse Resp B/P Pulse Ox O2 Delivery O2 Flow Rate FiO2 11/19/16 11:15 96 18 113/60 99 Nasal Cannula 1.0 11/19/16 08:00 98.1 11/18/16 20:00 27 Intake and Output 11/18/16 11/18/16 11/19/16 15:00 23:00 07:00 Intake Total 2243.74 ml 2787.5 ml 1712.5 ml Output Total 575 ml 1030 ml 910 ml Balance 1668.74 ml 1757.5 ml 802.5 ml Exam Constitutional: lying in bed, NG tube in place, awake Head: atraumatic, normocephalic Eyes: PERRL ENMT: mucosa pink and moist Neck: supple Respiratory: clear to auscultation, normal air movement Cardiovascular: regular rate and rhythm Gastrointestinal: bowel sounds, soft, non tender, No distended Neurological: nl mental status Results Result Diagram: 11/19/16 0350 11/19/16 0350 Results 24 hrs Laboratory Tests Test 11/18/16 17:11 11/18/16 17:45 11/18/16 21:25 11/19/16 02:28 Bedside Glucose 160 159 168 White Blood Count 17.4 #H Red Blood Count 2.74 L Hemoglobin 7.7 L Hematocrit 24.0 L Mean Corpuscular Volume 87.6 Mean Corpuscular Hemoglobin 28.1 L Mean Corpuscular Hemoglobin Concent 32.1 Red Cell Distribution Width 16.7 H Platelet Count 188 Mean Platelet Volume 9.4 Neutrophils % 75.0 Band Neutrophils % 13.0 H Lymphocytes % 9.0 L Monocytes % 3.0 Eosinophils % Neutrophils # 13.1 H Lymphocytes # 1.6 Monocytes # 0.5 Eosinophils # Sodium Level 137 Potassium Level 3.2 L Chloride Level 104 Carbon Dioxide Level 23 Anion Gap 13 Blood Urea Nitrogen 11 Creatinine 0.89 Glucose Level 169 # Calcium Level 6.9 L Test 11/19/16 03:00 11/19/16 03:50 11/19/16 08:00 Urine Color LT. YELLOW Urine Clarity CLEAR Urine pH 5.5 Urine Specific [place] <=1.005 L Urine Ketones NEGATIVE Urine Nitrite NEGATIVE Urine Bilirubin NEGATIVE Urine Urobilinogen 0.2 E.U./dL Urine Leukocyte Esterase NEGATIVE Urine Microscopic RBC 0-2 Urine Microscopic WBC NONE SEEN Urine Squamous Epithelial Cells OCCASIONAL Urine Hemoglobin TRACE Urine Glucose NEGATIVE Urine Total Protein NEGATIVE White Blood Count 21.2 #H Red Blood Count 3.92 #L Hemoglobin 11.2 #L Hematocrit 33.5 #L Mean Corpuscular Volume 85.5 Mean Corpuscular Hemoglobin 28.6 L Mean Corpuscular Hemoglobin Concent 33.4 Red Cell Distribution Width 16.1 H Platelet Count 196 Mean Platelet Volume 9.8 Neutrophils % 76.0 Band Neutrophils % 15.0 H Lymphocytes % 6.0 L Monocytes % 3.0 Eosinophils % Neutrophils # 16.1 H Lymphocytes # 1.3 Monocytes # 0.6 Eosinophils # Sodium Level 138 Potassium Level 3.5 Chloride Level 104 Carbon Dioxide Level 25 Anion Gap 13 Blood Urea Nitrogen 9 Creatinine 0.80 Glucose Level 150 Calcium Level 7.1 L Bedside Glucose 140 Medications Medications Current Medications Ondansetron HCl (Zofran Tab) 4 mg Q6H PRN PO NAUSEA AND/OR VOMITING Last administered on 11/18/16 08:09; Admin Dose 4 MG; Start 11/09/16 at 02:00 Metoclopramide HCl (Reglan) 10 mg Q6H PRN IV NAUSEA AND/OR VOMITING Last administered on 11/16/16 21:15; Admin Dose 10 MG; Start 11/09/16 at 02:00 Acetaminophen (Tylenol Tab) 650 mg Q6H PRN PO PAIN LEVEL 1-3 OR FEVER; Start at 02:00 Acetaminophen/ Hydrocodone Bitart ([place] (5/325)) 1 tab Q6H PRN PO MODERATE PAIN LEVEL 4-6 Last administered on 11/16/16 11:27; Admin Dose 1 TAB; Start 11/09/16 at 02:00 Acetaminophen/ Hydrocodone Bitart 2 tab 2 tab Q6H PRN PO SEVERE PAIN LEVEL 7- 10 Last administered on 11/18/16 08:04; Admin Dose 2 TAB; Start 11/09/16 at 02: 00 Sodium Chloride (NS) 250 ml @ 250 mls/hr PRN PRN IV SBP <80 Last administered on 11/11/16 00:52; Admin Dose 250 MLS/HR; Start 11/10/16 at 17:30 Acetylcysteine (Nac) 600 mg BID PO Last administered on 11/18/16 20:49; Admin Dose 600 MG; Start 11/12/16 at 11:30 Lorazepam (Ativan) 1 mg Q4H PRN IV ANXIETY Last administered on 11/14/16 23:32 ; Admin Dose 1 MG; Start 11/14/16 at 23:30 Famotidine (Pepcid) 20 mg BID PO Last administered on 11/18/16 20:49; Admin Dose 20 MG; Start 11/16/16 at 21:30 Al Hydrox/Mg Hydrox/Simethicone (Mag-Al Plus) 30 ml Q6H PRN PO GASTROINTESTINAL UPSET Last administered on 11/16/16 21:15; Admin Dose 30 ML; Start 11/16/16 at 21:30 Diagnostic Test (Pha) 1 ea 1 ea 02 XX Last administered on 11/18/16 02:00; Admin Dose 1 EA; Start 11/18/16 at 02:00 Phenylephrine HCl 80 mg/Dextrose 500 ml @ 37.5 mls/hr TITRATE IV Last administered on 11/19/16 09:02; Admin Dose 56.25 MLS/HR; Start 11/18/16 at 06: 15 Potassium Cl/ Dextrose/Lact Ringer's (D5-Lr + KCl 20 Meq) 1,000 ml @ 150 mls/ hr Q6H40M IV Last administered on 11/19/16 10:19; Admin Dose 150 MLS/HR; Start 11/18/16 at 14:00 Hydromorphone HCl (Dilaudid) 1 mg Q2HWA PRN IV PAIN Last administered on 04:38; Admin Dose 1 MG; Start 11/18/16 at 13:30 Ondansetron HCl 4 mg 4 mg Q6H PRN IV NAUSEA AND/OR VOMITING; Start 11/18/16 at 14:00 Cefazolin Sodium 50 ml @ 100 mls/hr Q8 IVPB Last administered on 11/19/16 06: 02; Admin Dose 100 MLS/HR; Start 11/18/16 at 14:00; Stop 11/20/16 at 06:29 Metronidazole 100 ml @ 100 mls/hr Q8 IVPB Last administered on 11/19/16 04:42 ; Admin Dose 100 MLS/HR; Start 11/18/16 at 14:00; Stop 11/20/16 at 06:59 Norepinephrine/ Dextrose (Levophed/D5W) 500 ml @ 1.87 mls/hr TITRATE IV ; Start 11/18/16 at 15:00 Octreotide Acetate (Sandostatin) 50 mcg TID SC Last administered on 11/19/16 09:07; Admin Dose 50 MCG; Start 11/18/16 at 21:00 QUINCY KU Nov 19, 2016 12:26
--- NOTE | 2016-11-19 22:45 | PN ---
Date/Time of Note Date/Time of Note DATE: 11/19/16 TIME: 22:42 Assessment/Plan VTE Prophylaxis VTE Prophylaxis Intervention: SCD's Lines/Catheters IV Catheter Type (from Nrs): Central Line Urinary Cath still in place: Yes Assessment/Plan Chief Complaint/Hosp Course Probable ovarian cancer vs peritoneal Problems: Assessment/Plan A- doing better with ongoing fluids and will probably mobilie fluids and increase BP in 24-28 hrs. P- Continue current rx Subjective 24 Hr Interval Summary Free Text/Dictation S- pain control adequate, alert no flatus and not OOB O- Resp- symmetric and pain free CVS- NSR Abd- Soft and clean; minimal tenderness, fluid leakage; probably ascitic Ext- NT minimal edema A- doing better with ongoing fluids and will probably mobilie fluids and increase BP in 24-28 hrs. P- Continue current rx Exam/Review of Systems Vital Signs Vitals Vital Signs Date Time Temp Pulse Resp B/P Pulse Ox O2 Delivery O2 Flow Rate FiO2 11/19/16 22:00 91 18 101/61 97 Nasal Cannula 11/19/16 19:30 98.1 11/19/16 11:45 1.0 11/18/16 20:00 27 Intake and Output 11/18/16 11/18/16 11/19/16 15:00 23:00 07:00 Intake Total 2243.74 ml 2787.5 ml 1975.0 ml Output Total 575 ml 1030 ml 910 ml Balance 1668.74 ml 1757.5 ml 1065.0 ml Results Result Diagram: 11/19/16 0350 11/19/16 0350 Results 24 hrs Laboratory Tests Test 11/19/16 02:28 11/19/16 03:00 11/19/16 03:50 11/19/16 08:00 Bedside Glucose 168 140 Urine Color LT. YELLOW Urine Clarity CLEAR Urine pH 5.5 Urine Specific [place] <=1.005 L Urine Ketones NEGATIVE Urine Nitrite NEGATIVE Urine Bilirubin NEGATIVE Urine Urobilinogen 0.2 E.U./dL Urine Leukocyte Esterase NEGATIVE Urine Microscopic RBC 0-2 Urine Microscopic WBC NONE SEEN Urine Squamous Epithelial Cells OCCASIONAL Urine Hemoglobin TRACE Urine Glucose NEGATIVE Urine Total Protein NEGATIVE White Blood Count 21.2 #H Red Blood Count 3.92 #L Hemoglobin 11.2 #L Hematocrit 33.5 #L Mean Corpuscular Volume 85.5 Mean Corpuscular Hemoglobin 28.6 L Mean Corpuscular Hemoglobin Concent 33.4 Red Cell Distribution Width 16.1 H Platelet Count 196 Mean Platelet Volume 9.8 Neutrophils % 76.0 Band Neutrophils % 15.0 H Lymphocytes % 6.0 L Monocytes % 3.0 Eosinophils % Neutrophils # 16.1 H Lymphocytes # 1.3 Monocytes # 0.6 Eosinophils # Sodium Level 138 Potassium Level 3.5 Chloride Level 104 Carbon Dioxide Level 25 Anion Gap 13 Blood Urea Nitrogen 9 Creatinine 0.80 Glucose Level 150 Calcium Level 7.1 L Test 11/19/16 12:26 11/19/16 17:55 11/19/16 20:49 Bedside Glucose 113 126 128 Medications Medications Current Medications Ondansetron HCl (Zofran Tab) 4 mg Q6H PRN PO NAUSEA AND/OR VOMITING Last administered on 11/18/16 08:09; Admin Dose 4 MG; Start 11/09/16 at 02:00 Metoclopramide HCl (Reglan) 10 mg Q6H PRN IV NAUSEA AND/OR VOMITING Last administered on 11/16/16 21:15; Admin Dose 10 MG; Start 11/09/16 at 02:00 Acetaminophen (Tylenol Tab) 650 mg Q6H PRN PO PAIN LEVEL 1-3 OR FEVER; Start at 02:00 Acetaminophen/ Hydrocodone Bitart ([place] (5/325)) 1 tab Q6H PRN PO MODERATE PAIN LEVEL 4-6 Last administered on 11/16/16 11:27; Admin Dose 1 TAB; Start 11/09/16 at 02:00 Acetaminophen/ Hydrocodone Bitart 2 tab 2 tab Q6H PRN PO SEVERE PAIN LEVEL 7- 10 Last administered on 11/18/16 08:04; Admin Dose 2 TAB; Start 11/09/16 at 02: 00 Sodium Chloride (NS) 250 ml @ 250 mls/hr PRN PRN IV SBP <80 Last administered on 11/11/16 00:52; Admin Dose 250 MLS/HR; Start 11/10/16 at 17:30 Acetylcysteine (Nac) 600 mg BID PO Last administered on 11/18/16 20:49; Admin Dose 600 MG; Start 11/12/16 at 11:30 Lorazepam (Ativan) 1 mg Q4H PRN IV ANXIETY Last administered on 11/14/16 23:32 ; Admin Dose 1 MG; Start 11/14/16 at 23:30 Famotidine (Pepcid) 20 mg BID PO Last administered on 11/18/16 20:49; Admin Dose 20 MG; Start 11/16/16 at 21:30 Al Hydrox/Mg Hydrox/Simethicone (Mag-Al Plus) 30 ml Q6H PRN PO GASTROINTESTINAL UPSET Last administered on 11/16/16 21:15; Admin Dose 30 ML; Start 11/16/16 at 21:30 Diagnostic Test (Pha) 1 ea 1 ea 02 XX Last administered on 11/18/16 02:00; Admin Dose 1 EA; Start 11/18/16 at 02:00 Phenylephrine HCl 80 mg/Dextrose 500 ml @ 37.5 mls/hr TITRATE IV Last administered on 11/19/16 17:54; Admin Dose 48.75 MLS/HR; Start 11/18/16 at 06: 15 Potassium Cl/ Dextrose/Lact Ringer's (D5-Lr + KCl 20 Meq) 1,000 ml @ 150 mls/ hr Q6H40M IV Last administered on 11/19/16 21:58; Admin Dose 150 MLS/HR; Start 11/18/16 at 14:00 Hydromorphone HCl (Dilaudid) 1 mg Q2HWA PRN IV PAIN Last administered on 20:07; Admin Dose 1 MG; Start 11/18/16 at 13:30 Ondansetron HCl 4 mg 4 mg Q6H PRN IV NAUSEA AND/OR VOMITING; Start 11/18/16 at 14:00 Cefazolin Sodium 50 ml @ 100 mls/hr Q8 IVPB Last administered on 11/19/16 21: 09; Admin Dose 100 MLS/HR; Start 11/18/16 at 14:00; Stop 11/20/16 at 06:29 Metronidazole 100 ml @ 100 mls/hr Q8 IVPB Last administered on 11/19/16 21:55 ; Admin Dose 100 MLS/HR; Start 11/18/16 at 14:00; Stop 11/20/16 at 06:59 Norepinephrine/ Dextrose (Levophed/D5W) 500 ml @ 1.87 mls/hr TITRATE IV ; Start 11/18/16 at 15:00 Octreotide Acetate (Sandostatin) 50 mcg TID SC Last administered on 11/19/16t 22:32; Admin Dose 50 MCG; Start 11/18/16 at 21:00 DILLON MARTÍNEZ MD Nov 19, 2016 22:45
[2016-11-20] VITALS (95 sets, daily range): BP systolic 66–128; BP diastolic 17–79; PULSE 68–111; RESP 10–27
[2016-11-20] MEDS: HYDROmorphONE 1 MG/ML SYG IV PRN ×3 (00:09→20:25)
[2016-11-20] MEDS: PHENYLephrine 80 MG in DEXTROSE 5% 492 ML IV SCH ×2 (00:57→09:50)
[2016-11-20 04:30] LABS: ADD SCAN DIFF NO
[2016-11-20 04:34] LABS: ABNORMAL IP MESSAGE 1; BASOPHIL # 0.1 10^3/ul (0.0-0.1); BASOPHILS % 0.5 % (0.0-2.0); EOSINOPHILS # 0.3 10^3/ul (0.0-0.5); EOSINOPHILS % 1.2 % (0.0-7.0); HEMATOCRIT 32.3 % (37.0-47.0); HEMOGLOBIN 10.4 g/dl (12.0-16.0); LYMPHOCYTES # 1.6 10^3/ul (0.8-2.9); LYMPHOCYTES % 7.1 % (15.0-51.0); MEAN CORPUSCULAR HGB CONC 32.2 g/dl (32.0-37.0); MEAN CORPUSCULAR VOLUME 87.1 fl (82.0-101.0); MEAN PLATELET VOLUME 10.2 fl (7.4-10.4); MONOCYTE # 1.6 10^3/ul (0.3-0.9); MONOCYTES % 7.1 % (0.0-11.0); NEUTROPHIL # 18.4 10^3/ul (1.6-7.5); NEUTROPHILS % 82.9 % (39.0-77.0); PLATELET COUNT 158 10^3/UL (140-415); RED BLOOD COUNT 3.71 10^6/ul (4.20-5.40); WHITE BLOOD COUNT 22.2 10^3/ul (4.8-10.8)
[2016-11-20 04:54] LABS: CALCIUM 6.7 mg/dl (8.4-10.2); CREATININE 0.7 mg/dl (0.44-1.00); POTASSIUM 4.4 mmol/L (3.5-5.1)
[2016-11-20] MEDS: CEFAZOLIN 1 GM/50 ML (PMX) 50 ML IVPB SCH (05:33)
[2016-11-20] MEDS: D5-LR + KCL 20 MEQ 1,000 ML IV SCH ×3 (06:14→17:26)
[2016-11-20] MEDS: metroNIDAZOLE 500 MG/NS (PMX) 100 ML IVPB SCH ×2 (06:14→21:25)
[2016-11-20] MEDS: INSULIN ASPART [NOVOLOG] 3 ML PEN SC SCH ×4 (08:00→21:00)
[2016-11-20] MEDS: OCTREOTIDE 50 MCG INJ SC SCH ×2 (08:30→15:36)
--- NOTE | 2016-11-20 08:46 | PN ---
Date/Time of Note Date/Time of Note DATE: 11/20/16 TIME: 08:45 Assessment/Plan VTE Prophylaxis VTE Prophylaxis Intervention: SCD's Lines/Catheters IV Catheter Type (from Nrsg): Central Line Central line still needed: Yes Urinary Cath still in place: Yes Reason Cath still needed: other (indicate) Assessment/Plan Assessment/Plan 56 yo F with 1. Newly diagnosed Malignancy of Ovarian origin Stage IIIc ovarian cancer ( elevated Ca-125 levels) - s/p extended hysterectomy with bilateral salpingoophorectomy POD # 2 2. Systemic shock likely septic with leucocytosis still requiring pressor support 3. Hypochromic anemia 4. Diuretic induced renal insufficiency: resolved 5. Mild Pancreatitis: resolved 6. Chronic Hypertension > Hypotension from shock PLAN: * Agree with broad spectrum abx per cone treater * Will also panculture patient * Continue to wean pressors as tolerated * Continue routine post op care and drain mgt per [facility] PROPHYLAXIS: SCDs/ PPI Spoke with cone treater / ID Critical care time spent with pt care today = 35 min. Subjective 24 Hr Interval Summary Free Text/Dictation Patient seen and examined. remains on pressor support reports only minimal pain Exam/Review of Systems Vital Signs Vitals Vital Signs Date Time Temp Pulse Resp B/P Pulse Ox O2 Delivery O2 Flow Rate FiO2 11/20/16 07:00 87 19 127/74 99 Nasal Cannula 1.0 11/20/16 02:46 97.8 11/18/16 20:00 27 Intake and Output 11/19/16 11/19/16 11/20/16 14:59 22:59 06:59 Intake Total 1771.25 ml 1812.75 ml 1875.75 ml Output Total 600 ml 460 ml 600 ml Balance 1171.25 ml 1352.75 ml 1275.75 ml Exam Constitutional: alert, oriented, No distress Psych: nl mood/affect Head: atraumatic, normocephalic Eyes: PERRL, No icteric ENMT: other (NGT draining dark green fluid) Neck: supple Respiratory: diminished breath sounds Cardiovascular: regular rate and rhythm, No murmurs/extra sounds Gastrointestinal: distended (mildly), surgical scars (midline covered with dressing, drain L abd with bloody serous fluid), No bowel sounds Extremities: edema (mild non pitting in mal[place] hands) Results Result Diagram: 11/20/16 0341 11/20/16 0341 Results 24 hrs Laboratory Tests Test 11/19/16 12:26 11/19/16 17:55 11/19/16 20:49 11/20/16 03:41 Bedside Glucose 113 126 128 White Blood Count 22.2 H Red Blood Count 3.71 L Hemoglobin 10.4 L Hematocrit 32.3 L Mean Corpuscular Volume 87.1 Mean Corpuscular Hemoglobin 28.0 L Mean Corpuscular Hemoglobin Concent 32.2 Red Cell Distribution Width 17.0 H Platelet Count 158 Mean Platelet Volume 10.2 Neutrophils % 82.9 H Lymphocytes % 7.1 L Monocytes % 7.1 Eosinophils % 1.2 Basophils % 0.5 Nucleated Red Blood Cells % 0.0 Neutrophils # 18.4 H Lymphocytes # 1.6 Monocytes # 1.6 H Eosinophils # 0.3 Basophils # 0.1 Nucleated Red Blood Cells # 0.0 Sodium Level 133 L Potassium Level 4.4 Chloride Level 107 Carbon Dioxide Level 25 Anion Gap 5 #L Blood Urea Nitrogen 8 Creatinine 0.70 Glucose Level 120 Calcium Level 6.7 L Test 11/20/16 08:18 Bedside Glucose 105 Medications Medications Current Medications Ondansetron HCl (Zofran Tab) 4 mg Q6H PRN PO NAUSEA AND/OR VOMITING Last administered on 11/18/16 08:09; Admin Dose 4 MG; Start 11/09/16 at 02:00 Metoclopramide HCl (Reglan) 10 mg Q6H PRN IV NAUSEA AND/OR VOMITING Last administered on 11/16/16 21:15; Admin Dose 10 MG; Start 11/09/16 at 02:00 Acetaminophen (Tylenol Tab) 650 mg Q6H PRN PO PAIN LEVEL 1-3 OR FEVER; Start at 02:00 Acetaminophen/ Hydrocodone Bitart ([place] (5/325)) 1 tab Q6H PRN PO MODERATE PAIN LEVEL 4-6 Last administered on 11/16/16 11:27; Admin Dose 1 TAB; Start 11/09/16 at 02:00 Acetaminophen/ Hydrocodone Bitart 2 tab 2 tab Q6H PRN PO SEVERE PAIN LEVEL 7- 10 Last administered on 11/18/16 08:04; Admin Dose 2 TAB; Start 11/09/16 at 02: 00 Sodium Chloride (NS) 250 ml @ 250 mls/hr PRN PRN IV SBP <80 Last administered on 11/11/16 00:52; Admin Dose 250 MLS/HR; Start 11/10/16 at 17:30 Acetylcysteine (Nac) 600 mg BID PO Last administered on 11/18/16 20:49; Admin Dose 600 MG; Start 11/12/16 at 11:30 Lorazepam (Ativan) 1 mg Q4H PRN IV ANXIETY Last administered on 11/14/16 23:32 ; Admin Dose 1 MG; Start 11/14/16 at 23:30 Famotidine (Pepcid) 20 mg BID PO Last administered on 11/18/16 20:49; Admin Dose 20 MG; Start 11/16/16 at 21:30 Al Hydrox/Mg Hydrox/Simethicone (Mag-Al Plus) 30 ml Q6H PRN PO GASTROINTESTINAL UPSET Last administered on 11/16/16 21:15; Admin Dose 30 ML; Start 11/16/16 at 21:30 Diagnostic Test (Pha) 1 ea 1 ea 02 XX Last administered on 11/18/16 02:00; Admin Dose 1 EA; Start 11/18/16 at 02:00 Phenylephrine HCl 80 mg/Dextrose 500 ml @ 37.5 mls/hr TITRATE IV Last administered on 11/20/16 00:57; Admin Dose 63.75 MLS/HR; Start 11/18/16 at 06: 15 Potassium Cl/ Dextrose/Lact Ringer's (D5-Lr + KCl 20 Meq) 1,000 ml @ 150 mls/ hr Q6H40M IV Last administered on 11/20/16 06:14; Admin Dose 150 MLS/HR; Start 11/18/16 at 14:00 Hydromorphone HCl (Dilaudid) 1 mg Q2HWA PRN IV PAIN Last administered on 05:33; Admin Dose 1 MG; Start 11/18/16 at 13:30 Ondansetron HCl 4 mg 4 mg Q6H PRN IV NAUSEA AND/OR VOMITING; Start 11/18/16 at 14:00 Norepinephrine/ Dextrose (Levophed/D5W) 500 ml @ 1.87 mls/hr TITRATE IV ; Start 11/18/16 at 15:00 Octreotide Acetate (Sandostatin) 50 mcg TID SC Last administered on 11/20/16t 08:30; Admin Dose 50 MCG; Start 11/18/16 at 21:00 JYOTHI BENAVIDES Nov 20, 2016 08:46
--- NOTE | 2016-11-20 08:47 | CONS ---
Date/Time of Note Date/Time of Note DATE: 11/20/16 TIME: 08:39 Assessment/Plan Assessment/Plan Chief Complaint/Hosp Course 56 yo female with malignant ascites whose cytology is consistent with primary peritoneal cancer vs ovarian primary. Problems: (1) Ascites, malignant Status: Acute (2) Anemia Status: Acute Qualifiers: Anemia type: iron deficiency Iron deficiency anemia type: chronic blood loss Qualified Code: D50.0 - Iron deficiency anemia due to chronic blood loss Additional Assessment/Plan #Probably [facility] Malignancy - CT with IV contrast of abd and pel showed loculated ascites, peritoneal mets, omental mets, bilateral adnexal masses; - Patient taken to OR by Dr. Pierce today 11/17/16 that showed stage IIIC ovarian cancer with very advanced disease with confluent disease, which was debulked to < 5 mm residual disease. An en-bloc omentectomy with splenectomy and distal pancreatectomy (minimal, about 1/2 cm) was needed to remove the bulky /massive upper abdominal disease. - Plan for chemotherapy in 10-[address] Pierce. #Ascites - s/p paracentesis 11/10/16 for her abdominal distension, with removal of 4.9L, and again today intraoperatively with removal of 5L #LE Swelling - bilateral LE Doppler neg for DVT # Anemia -Hg currently > 10. Post op transfusion parameters per [facility] -pt last received 2 units of PRBC and 2 units of FFP on 11/18 Approximately 40 min were spent at patient's bedside and in coordination of her care Consultation Date/Type/Reason Admit Date/Time Nov 09, 2016 at 00:55 Initial Consult Date 11/17/16 Type of Consultation: Hematology Reason for Consultation ovarian cancer Referring Provider: JYOTHI BENAVIDES 24 HR Interval Summary Free Text/Dictation continues on norsynephrine. extubated. pain is under control with prn Dilaudid Exam/Review of Systems Vital Signs Vitals Vital Signs Date Time Temp Pulse Resp B/P Pulse Ox O2 Delivery O2 Flow Rate FiO2 11/20/16 07:00 87 19 127/74 99 Nasal Cannula 1.0 11/20/16 02:46 97.8 11/18/16 20:00 27 Intake and Output 11/19/16 11/19/16 11/20/16 15:00 23:00 07:00 Intake Total 1713.75 ml 1821.50 ml 1662.00 ml Output Total 630 ml 510 ml 570 ml Balance 1083.75 ml 1311.50 ml 1092.00 ml Exam Constitutional: alert, oriented Head: atraumatic, normocephalic Eyes: nl conjunctiva ENMT: nl external ears & nose Neck: non-tender, supple Respiratory: clear to auscultation Cardiovascular: regular rate and rhythm Gastrointestinal: other (L JEWEL drain in place), surgical scars, tender Musculoskeletal: nl extremities to inspection Results Result Diagram: 11/20/16 0341 11/20/16 0341 Results 24 hrs Laboratory Tests Test 11/19/16 12:26 11/19/16 17:55 11/19/16 20:49 11/20/16 03:41 Bedside Glucose 113 126 128 White Blood Count 22.2 H Red Blood Count 3.71 L Hemoglobin 10.4 L Hematocrit 32.3 L Mean Corpuscular Volume 87.1 Mean Corpuscular Hemoglobin 28.0 L Mean Corpuscular Hemoglobin Concent 32.2 Red Cell Distribution Width 17.0 H Platelet Count 158 Mean Platelet Volume 10.2 Neutrophils % 82.9 H Lymphocytes % 7.1 L Monocytes % 7.1 Eosinophils % 1.2 Basophils % 0.5 Nucleated Red Blood Cells % 0.0 Neutrophils # 18.4 H Lymphocytes # 1.6 Monocytes # 1.6 H Eosinophils # 0.3 Basophils # 0.1 Nucleated Red Blood Cells # 0.0 Sodium Level 133 L Potassium Level 4.4 Chloride Level 107 Carbon Dioxide Level 25 Anion Gap 5 #L Blood Urea Nitrogen 8 Creatinine 0.70 Glucose Level 120 Calcium Level 6.7 L Test 11/20/16 08:18 Bedside Glucose 105 Medications Medications Current Medications Ondansetron HCl (Zofran Tab) 4 mg Q6H PRN PO NAUSEA AND/OR VOMITING Last administered on 11/18/16 08:09; Admin Dose 4 MG; Start 11/09/16 at 02:00 Metoclopramide HCl (Reglan) 10 mg Q6H PRN IV NAUSEA AND/OR VOMITING Last administered on 11/16/16 21:15; Admin Dose 10 MG; Start 11/09/16 at 02:00 Acetaminophen (Tylenol Tab) 650 mg Q6H PRN PO PAIN LEVEL 1-3 OR FEVER; Start at 02:00 Acetaminophen/ Hydrocodone Bitart ([place] (5/325)) 1 tab Q6H PRN PO MODERATE PAIN LEVEL 4-6 Last administered on 11/16/16 11:27; Admin Dose 1 TAB; Start 11/09/16 at 02:00 Acetaminophen/ Hydrocodone Bitart 2 tab 2 tab Q6H PRN PO SEVERE PAIN LEVEL 7- 10 Last administered on 11/18/16 08:04; Admin Dose 2 TAB; Start 11/09/16 at 02: 00 Sodium Chloride (NS) 250 ml @ 250 mls/hr PRN PRN IV SBP <80 Last administered on 11/11/16 00:52; Admin Dose 250 MLS/HR; Start 11/10/16 at 17:30 Acetylcysteine (Nac) 600 mg BID PO Last administered on 11/18/16 20:49; Admin Dose 600 MG; Start 11/12/16 at 11:30 Lorazepam (Ativan) 1 mg Q4H PRN IV ANXIETY Last administered on 11/14/16 23:32 ; Admin Dose 1 MG; Start 11/14/16 at 23:30 Famotidine (Pepcid) 20 mg BID PO Last administered on 11/18/16 20:49; Admin Dose 20 MG; Start 11/16/16 at 21:30 Al Hydrox/Mg Hydrox/Simethicone (Mag-Al Plus) 30 ml Q6H PRN PO GASTROINTESTINAL UPSET Last administered on 11/16/16 21:15; Admin Dose 30 ML; Start 11/16/16 at 21:30 Diagnostic Test (Pha) 1 ea 1 ea 02 XX Last administered on 11/18/16 02:00; Admin Dose 1 EA; Start 11/18/16 at 02:00 Phenylephrine HCl 80 mg/Dextrose 500 ml @ 37.5 mls/hr TITRATE IV Last administered on 11/20/16 00:57; Admin Dose 63.75 MLS/HR; Start 11/18/16 at 06: 15 Potassium Cl/ Dextrose/Lact Ringer's (D5-Lr + KCl 20 Meq) 1,000 ml @ 150 mls/ hr Q6H40M IV Last administered on 11/20/16 06:14; Admin Dose 150 MLS/HR; Start 11/18/16 at 14:00 Hydromorphone HCl (Dilaudid) 1 mg Q2HWA PRN IV PAIN Last administered on 05:33; Admin Dose 1 MG; Start 11/18/16 at 13:30 Ondansetron HCl 4 mg 4 mg Q6H PRN IV NAUSEA AND/OR VOMITING; Start 11/18/16 at 14:00 Norepinephrine/ Dextrose (Levophed/D5W) 500 ml @ 1.87 mls/hr TITRATE IV ; Start 11/18/16 at 15:00 Octreotide Acetate (Sandostatin) 50 mcg TID SC Last administered on 11/20/16 08:30; Admin Dose 50 MCG; Start 11/18/16 at 21:00 FLORINDA COATES M.D. Nov 20, 2016 08:47
[2016-11-20] MEDS: ACETYLCYSTEINE 600 MG CAP PO SCH ×3 (09:00→21:24)
[2016-11-20] MEDS: FAMOTIDINE 20 MG TAB PO SCH (09:00)
--- NOTE | 2016-11-20 10:23 | CONS ---
Date/Time of Note Date/Time of Note DATE: 11/20/16 TIME: 10:15 Consult Date/Type/Reason Admit Date/Time Nov 09, 2016 at 00:55 Initial Consult Date 11/17/16 Type of Consultation: pulmonary ICU Ordering Provider: JYOTHI BENAVIDES Subjective Patient stable postextubation. No respiratory distress continues incentive spirometry Continues low-dose vasopressors Objective Vital Signs Date Time Temp Pulse Resp B/P Pulse Ox O2 Delivery O2 Flow Rate FiO2 11/20/16 10:00 83 14 111/79 99 11/20/16 07:45 98.7 11/20/16 07:00 Nasal Cannula 1.0 11/18/16 20:00 27 Intake and Output 11/19/16 11/19/16 11/20/16 15:00 23:00 07:00 Intake Total 1713.75 ml 1821.50 ml 1860.75 ml Output Total 630 ml 510 ml 570 ml Balance 1083.75 ml 1311.50 ml 1290.75 ml Exam GENERAL: Well-nourished well-developed lady comfortable at rest VITAL SIGNS: per chart NECK: Supple. No JVD or lymphadenopathy. CARDIAC EXAM: S1, S2. No added sounds or murmurs. CHEST: Diminished air entry both lung bases. ABDOMEN: Diminished bowel sounds no guarding or rebound EXTREMITIES: No cyanosis, clubbing or edema. NEUROLOGIC: Generalized weakness. No focal deficits. Results/Medications Result Diagram: 11/20/16 0341 11/20/16 0341 Results 24 hrs Laboratory Tests Test 11/19/16 12:26 11/19/16 17:55 11/19/16 20:49 11/20/16 03:41 Bedside Glucose 113 126 128 White Blood Count 22.2 H Red Blood Count 3.71 L Hemoglobin 10.4 L Hematocrit 32.3 L Mean Corpuscular Volume 87.1 Mean Corpuscular Hemoglobin 28.0 L Mean Corpuscular Hemoglobin Concent 32.2 Red Cell Distribution Width 17.0 H Platelet Count 158 Mean Platelet Volume 10.2 Neutrophils % 82.9 H Lymphocytes % 7.1 L Monocytes % 7.1 Eosinophils % 1.2 Basophils % 0.5 Nucleated Red Blood Cells % 0.0 Neutrophils # 18.4 H Lymphocytes # 1.6 Monocytes # 1.6 H Eosinophils # 0.3 Basophils # 0.1 Nucleated Red Blood Cells # 0.0 Sodium Level 133 L Potassium Level 4.4 Chloride Level 107 Carbon Dioxide Level 25 Anion Gap 5 #L Blood Urea Nitrogen 8 Creatinine 0.70 Glucose Level 120 Calcium Level 6.7 L Test 11/20/16 08:18 Bedside Glucose 105 Medications Current Medications Ondansetron HCl (Zofran Tab) 4 mg Q6H PRN PO NAUSEA AND/OR VOMITING Last administered on 11/18/16 08:09; Admin Dose 4 MG; Start 11/09/16 at 02:00 Metoclopramide HCl (Reglan) 10 mg Q6H PRN IV NAUSEA AND/OR VOMITING Last administered on 11/16/16 21:15; Admin Dose 10 MG; Start 11/09/16 at 02:00 Acetaminophen (Tylenol Tab) 650 mg Q6H PRN PO PAIN LEVEL 1-3 OR FEVER; Start at 02:00 Acetaminophen/ Hydrocodone Bitart ([place] (5/325)) 1 tab Q6H PRN PO MODERATE PAIN LEVEL 4-6 Last administered on 11/16/16 11:27; Admin Dose 1 TAB; Start 11/09/16 at 02:00 Acetaminophen/ Hydrocodone Bitart 2 tab 2 tab Q6H PRN PO SEVERE PAIN LEVEL 7- 10 Last administered on 11/18/16 08:04; Admin Dose 2 TAB; Start 11/09/16 at 02: 00 Sodium Chloride (NS) 250 ml @ 250 mls/hr PRN PRN IV SBP <80 Last administered on 11/11/16 00:52; Admin Dose 250 MLS/HR; Start 11/10/16 at 17:30 Acetylcysteine (Nac) 600 mg BID PO Last administered on 11/18/16 20:49; Admin Dose 600 MG; Start 11/12/16 at 11:30 Lorazepam (Ativan) 1 mg Q4H PRN IV ANXIETY Last administered on 11/14/16 23:32 ; Admin Dose 1 MG; Start 11/14/16 at 23:30 Famotidine (Pepcid) 20 mg BID PO Last administered on 11/18/16 20:49; Admin Dose 20 MG; Start 11/16/16 at 21:30 Al Hydrox/Mg Hydrox/Simethicone (Mag-Al Plus) 30 ml Q6H PRN PO GASTROINTESTINAL UPSET Last administered on 11/16/16 21:15; Admin Dose 30 ML; Start 11/16/16 at 21:30 Diagnostic Test (Pha) 1 ea 1 ea 02 XX Last administered on 11/18/16 02:00; Admin Dose 1 EA; Start 11/18/16 at 02:00 Phenylephrine HCl 80 mg/Dextrose 500 ml @ 37.5 mls/hr TITRATE IV Last administered on 11/20/16 09:50; Admin Dose 48.75 MLS/HR; Start 11/18/16 at 06: 15 Potassium Cl/ Dextrose/Lact Ringer's (D5-Lr + KCl 20 Meq) 1,000 ml @ 150 mls/ hr Q6H40M IV Last administered on 11/20/16 06:14; Admin Dose 150 MLS/HR; Start 11/18/16 at 14:00 Hydromorphone HCl (Dilaudid) 1 mg Q2HWA PRN IV PAIN Last administered on 05:33; Admin Dose 1 MG; Start 11/18/16 at 13:30 Ondansetron HCl 4 mg 4 mg Q6H PRN IV NAUSEA AND/OR VOMITING; Start 11/18/16 at 14:00 Norepinephrine/ Dextrose (Levophed/D5W) 500 ml @ 1.87 mls/hr TITRATE IV ; Start 11/18/16 at 15:00 Octreotide Acetate (Sandostatin) 50 mcg TID SC Last administered on 11/20/16 08:30; Admin Dose 50 MCG; Start 11/18/16 at 21:00 Assessment/Plan Chief Complaint/Hosp Course Assessment 1. Status post respiratory failure now safely extubated 2. Metastatic ovarian carcinoma status post tumor debulking 3. Postoperative leukocytosis 4. Septic shock Plan 1. Continue vasopressors 2. Encourage incentive spirometry 3. Continue postop surgical care 4. Continue nothing by mouth 5. Consider broadening antibiotics given progressive leukocytosis Disposition Continue ICU care Problems: [facility] Nov 20, 2016 10:23
[2016-11-20] MEDS ORDERED: PIPER-TAZO 3.375 GM IV (PMX) 100 ML IVPB SCH (11:30)
--- NOTE | 2016-11-20 12:44 | PN ---
Date/Time of Note Date/Time of Note DATE: 11/20/16 TIME: 12:36 Assessment/Plan VTE Prophylaxis VTE Prophylaxis Intervention: SCD's Lines/Catheters IV [facility] Central Line Urinary Cath still in place: Yes Assessment/Plan Chief Complaint/Hosp Course Probable ovarian cancer vs peritoneal Problems: Assessment/Plan A- doing better with ongoing fluids and will probably mobilie fluids and increase BP in 24 hrs. PLEASE NOTE; WBC of approximately 20K commonly seen after splenectomy with distal pancreatectomy. P- Continue current rx GIVEN THAT WBC OF ABOUT 20K COMMON WITH SPLENECTOMY/DISTAL PANCREATECTOMY; continue broad spectrum abx may be used but not essential (afebrile and hypotension due to third spacing / ascites) Subjective 24 Hr Interval Summary Free Text/Dictation S- pain control adequate, alert no flatus and not OOB O- Resp- symmetric and pain free CVS- NSR Abd- Soft and clean; minimal tenderness, fluid leakage reduced; probably was ascitic Ext- NT minimal edema A- doing better with ongoing fluids and will probably mobilie fluids and increase BP in 24 hrs. PLEASE NOTE; WBC of approximately 20K commonly seen after splenectomy with distal pancreatectomy. P- Continue current rx GIVEN THAT WBC OF ABOUT 20K COMMON WITH SPLENECTOMY/DISTAL PANCREATECTOMY; continue broad spectrum abx may be used but not essential (afebrile and hypotension due to third spacing / ascites) Exam/Review of Systems Vital Signs Vitals Vital Signs Date Time Temp Pulse Resp B/P Pulse Ox O2 Delivery O2 Flow Rate FiO2 11/20/16 10:00 83 14 111/79 99 11/20/16 07:45 98.7 11/20/16 07:00 Nasal Cannula 1.0 11/18/16 20:00 27 Intake and Output 11/19/16 11/19/16 11/20/16 15:00 23:00 07:00 Intake Total 1713.75 ml 1821.50 ml 1860.75 ml Output Total 630 ml 510 ml 570 ml Balance 1083.75 ml 1311.50 ml 1290.75 ml Results Result Diagram: 11/20/16 0341 11/20/16 0341 Results 24 hrs Laboratory Tests Test 11/19/16 17:55 11/19/16 20:49 11/20/16 03:41 11/20/16 08:18 Bedside Glucose 126 128 105 White Blood Count 22.2 H Red Blood Count 3.71 L Hemoglobin 10.4 L Hematocrit 32.3 L Mean Corpuscular Volume 87.1 Mean Corpuscular Hemoglobin 28.0 L Mean Corpuscular Hemoglobin Concent 32.2 Red Cell Distribution Width 17.0 H Platelet Count 158 Mean Platelet Volume 10.2 Neutrophils % 82.9 H Lymphocytes % 7.1 L Monocytes % 7.1 Eosinophils % 1.2 Basophils % 0.5 Nucleated Red Blood Cells % 0.0 Neutrophils # 18.4 H Lymphocytes # 1.6 Monocytes # 1.6 H Eosinophils # 0.3 Basophils # 0.1 Nucleated Red Blood Cells # 0.0 Sodium Level 133 L Potassium Level 4.4 Chloride Level 107 Carbon Dioxide Level 25 Anion Gap 5 #L Blood Urea Nitrogen 8 Creatinine 0.70 Glucose Level 120 Calcium Level 6.7 L Test 11/20/16 09:00 Gastric Fluid Occult Blood NEGATIVE Medications Medications Current Medications Ondansetron HCl (Zofran Tab) 4 mg Q6H PRN PO NAUSEA AND/OR VOMITING Last administered on 11/18/16 08:09; Admin Dose 4 MG; Start 11/09/16 at 02:00 Metoclopramide HCl (Reglan) 10 mg Q6H PRN IV NAUSEA AND/OR VOMITING Last administered on 11/16/16 21:15; Admin Dose 10 MG; Start 11/09/16 at 02:00 Acetaminophen (Tylenol Tab) 650 mg Q6H PRN PO PAIN LEVEL 1-3 OR FEVER; Start at 02:00 Acetaminophen/ Hydrocodone Bitart ([place] (5/325)) 1 tab Q6H PRN PO MODERATE PAIN LEVEL 4-6 Last administered on 11/16/16 11:27; Admin Dose 1 TAB; Start 11/09/16 at 02:00 Acetaminophen/ Hydrocodone Bitart 2 tab 2 tab Q6H PRN PO SEVERE PAIN LEVEL 7- 10 Last administered on 11/18/16 08:04; Admin Dose 2 TAB; Start 11/09/16 at 02: 00 Sodium Chloride (NS) 250 ml @ 250 mls/hr PRN PRN IV SBP <80 Last administered on 11/11/16 00:52; Admin Dose 250 MLS/HR; Start 11/10/16 at 17:30 Acetylcysteine (Nac) 600 mg BID PO Last administered on 11/18/16 20:49; Admin Dose 600 MG; Start 11/12/16 at 11:30 Lorazepam (Ativan) 1 mg Q4H PRN IV ANXIETY Last administered on 11/14/16 23:32 ; Admin Dose 1 MG; Start 11/14/16 at 23:30 Al Hydrox/Mg Hydrox/Simethicone (Mag-Al Plus) 30 ml Q6H PRN PO GASTROINTESTINAL UPSET Last administered on 11/16/16 21:15; Admin Dose 30 ML; Start 11/16/16 at 21:30 Diagnostic Test (Pha) 1 ea 1 ea 02 XX Last administered on 11/18/16 02:00; Admin Dose 1 EA; Start 11/18/16 at 02:00 Phenylephrine HCl 80 mg/Dextrose 500 ml @ 37.5 mls/hr TITRATE IV Last administered on 11/20/16 09:50; Admin Dose 48.75 MLS/HR; Start 11/18/16 at 06: 15 Potassium Cl/ Dextrose/Lact Ringer's (D5-Lr + KCl 20 Meq) 1,000 ml @ 150 mls/ hr Q6H40M IV Last administered on 11/20/16 06:14; Admin Dose 150 MLS/HR; Start 11/18/16 at 14:00 Hydromorphone HCl (Dilaudid) 1 mg Q2HWA PRN IV PAIN Last administered on 05:33; Admin Dose 1 MG; Start 11/18/16 at 13:30 Ondansetron HCl 4 mg 4 mg Q6H PRN IV NAUSEA AND/OR VOMITING; Start 11/18/16 at 14:00 Norepinephrine/ Dextrose (Levophed/D5W) 500 ml @ 1.87 mls/hr TITRATE IV ; Start 11/18/16 at 15:00 Octreotide Acetate 50 mcg 50 mcg TID SC Last administered on 11/20/16 08:30; Admin Dose 50 MCG; Start 11/18/16 at 21:00 Piperacillin Sod/ Tazobactam Sod 100 ml @ 200 mls/hr Q8 IVPB ; Start 11/20/16 at 11:30 Calcium Gluconate/ Sodium Chloride (Ca Gluc/NS) 120 ml @ 60 mls/hr ONCE ONCE IVPB ; Start 11/20/16 at 14:00; Stop 11/20/16 at 15:59 Pantoprazole (Protonix Iv) 40 mg BID@06,18 IV ; Start 11/20/16 at 18:00 DILLON MARTÍNEZ MD Nov 20, 2016 12:44
[2016-11-20] MEDS ORDERED: CALCIUM GLUCONATE 10% 2 GM in SOD CHLORIDE 0.9% 100 ML IVPB ONE (14:00)
[2016-11-20] MEDS: PANTOPRAZOLE 40 MG INJ IV SCH (17:23)
[2016-11-20 18:55] LABS: ADD SCAN DIFF NO
[2016-11-20 18:59] LABS: ABNORMAL IP MESSAGE 1; BASOPHIL # 0.1 10^3/ul (0.0-0.1); BASOPHILS % 0.4 % (0.0-2.0); EOSINOPHILS # 0.3 10^3/ul (0.0-0.5); EOSINOPHILS % 1.5 % (0.0-7.0); HEMATOCRIT 32.2 % (37.0-47.0); HEMOGLOBIN 10.7 g/dl (12.0-16.0); LYMPHOCYTES # 1.3 10^3/ul (0.8-2.9); LYMPHOCYTES % 6.3 % (15.0-51.0); MEAN CORPUSCULAR HEMOGLOBIN 29.2 pg (29.0-33.0); MEAN CORPUSCULAR HGB CONC 33.2 g/dl (32.0-37.0); MEAN CORPUSCULAR VOLUME 87.7 fl (82.0-101.0); MEAN PLATELET VOLUME 10.6 fl (7.4-10.4); MONOCYTE # 1.6 10^3/ul (0.3-0.9); MONOCYTES % 7.7 % (0.0-11.0); NEUTROPHIL # 17.6 10^3/ul (1.6-7.5); NEUTROPHILS % 83.1 % (39.0-77.0); NUCLEATED RED BLOOD CELLS% 0.1 /100WBC (0.0-0.0); PLATELET COUNT 175 10^3/UL (140-415); RED BLOOD COUNT 3.67 10^6/ul (4.20-5.40); RED CELL DISTRIBUTION WIDTH 17.1 % (11.5-14.5); WHITE BLOOD COUNT 21.2 10^3/ul (4.8-10.8)
[2016-11-20 19:11] LABS: INR 1.71; POTASSIUM 4.4 mmol/L (3.5-5.1); PROTIME 20.2 Sec (12.2-14.2); PT RATIO 1.6
[2016-11-20 19:13] LABS: CREATININE 0.66 mg/dl (0.44-1.00)
[2016-11-20 19:14] LABS: CALCIUM 7.8 mg/dl (8.4-10.2)
[2016-11-20] MEDS ORDERED: LEVOFLOXACIN 750MG/D5W (PMX) 150 ML IVPB SCH (21:00)
[2016-11-21] VITALS (83 sets, daily range): BP systolic 83–139; BP diastolic 58–118; PULSE 67–105; RESP 12–31
[2016-11-21] MEDS: OCTREOTIDE 50 MCG INJ SC SCH (01:05)
[2016-11-21] MEDS: D5-LR + KCL 20 MEQ 1,000 ML IV SCH (01:05)
[2016-11-21] MEDS: PIPER-TAZO 3.375 GM IV (PMX) 100 ML IVPB SCH ×4 (01:05→17:45)
[2016-11-21] MEDS: PHENYLephrine 80 MG in DEXTROSE 5% 492 ML IV SCH (01:10)
[2016-11-21] MEDS: ACCU-CHEK XX SCH (01:26)
[2016-11-21] MEDS: HYDROmorphONE 1 MG/ML SYG IV PRN ×2 (04:18→20:23)
[2016-11-21] MEDS: PANTOPRAZOLE 40 MG INJ IV SCH ×2 (05:58→17:45)
[2016-11-21] MEDS: metroNIDAZOLE 500 MG/NS (PMX) 100 ML IVPB SCH ×3 (05:59→22:11)
[2016-11-21 06:06] LABS: ADD SCAN DIFF NO
[2016-11-21 06:25] LABS: ABNORMAL IP MESSAGE 1; BASOPHIL # 0.1 10^3/ul (0.0-0.1); BASOPHILS % 0.4 % (0.0-2.0); EOSINOPHILS # 0.3 10^3/ul (0.0-0.5); HEMATOCRIT 29.4 % (37.0-47.0); HEMOGLOBIN 9.3 g/dl (12.0-16.0); LYMPHOCYTES # 1.1 10^3/ul (0.8-2.9); MEAN CORPUSCULAR HEMOGLOBIN 28.2 pg (29.0-33.0); MEAN CORPUSCULAR HGB CONC 31.6 g/dl (32.0-37.0); MEAN CORPUSCULAR VOLUME 89.1 fl (82.0-101.0); MEAN PLATELET VOLUME 10.2 fl (7.4-10.4); MONOCYTE # 1.7 10^3/ul (0.3-0.9); MONOCYTES % 10.1 % (0.0-11.0); NEUTROPHILS % 79.7 % (39.0-77.0); NUCLEATED RED BLOOD CELLS% 0.2 /100WBC (0.0-0.0); PLATELET COUNT 163 10^3/UL (140-415); RED CELL DISTRIBUTION WIDTH 16.9 % (11.5-14.5); WHITE BLOOD COUNT 16.3 10^3/ul (4.8-10.8)
[2016-11-21 06:53] LABS: CREATININE 0.67 mg/dl (0.44-1.00); PHOSPHORUS 2.6 mg/dl (2.5-4.9)
[2016-11-21 06:54] LABS: CALCIUM 7.7 mg/dl (8.4-10.2); MAGNESIUM 1.2 mg/dl (1.7-2.5)
[2016-11-21] MEDS ORDERED: OCTREOTIDE 50 MCG INJ SC SCH (09:00)
--- NOTE | 2016-11-21 09:09 | PN ---
Date/Time of Note Date/Time of Note DATE: 11/21/16 TIME: 09:05 Assessment/Plan VTE Prophylaxis VTE Prophylaxis Intervention: SCD's Lines/Catheters IV Catheter Type (from Nrs): Central Line Central line still needed: Yes Urinary Cath still in place: Yes Reason Cath still needed: other (indicate) Assessment/Plan Assessment/Plan 56 yo F with 1. Newly diagnosed Malignancy of Ovarian origin Stage IIIc ovarian cancer ( elevated Ca-125 levels) - s/p extended hysterectomy with bilateral salpingoophorectomy POD # 2 2. Systemic shock likely septic with leucocytosis still requiring pressor support 3. Hypochromic anemia 4. Diuretic induced renal insufficiency: resolved 5. Mild Pancreatitis: resolved 6. Chronic Hypertension > Hypotension from shock PLAN: * Agree with broad spectrum abx per fixed income portfolio manager * Will also add low dose lasix and albumin even though patient is hypotensive * Will also panculture patient * Continue to wean pressors as tolerated * Continue routine post op care and drain mgt per Gospel Singer Onc PROPHYLAXIS: SCDs/ PPI Spoke with fixed income portfolio manager / ID Critical care time spent with pt care today = 35 min. Subjective 24 Hr Interval Summary Free Text/Dictation Patient complaining of sore throat. 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) Neck: supple, tender anteriorly likely 2/2 NGT Respiratory: diminished breath sounds Cardiovascular: regular rate and rhythm, No murmurs/extra sounds Gastrointestinal: distended (mildly), surgical scars (midline covered with dressing, drain L abd with bloody serous fluid), No bowel sounds Extremities: edema (mild non pitting in malia hands) Results Result Diagram: 11/21/16 0500 11/21/16 0500 Results 24 hrs Laboratory Tests Test 11/20/16 13:51 11/20/16 17:21 11/20/16 18:35 11/20/16 21:22 Bedside Glucose 120 108 124 White Blood Count 21.2 H Red Blood Count 3.67 L Hemoglobin 10.7 L Hematocrit 32.2 L Mean Corpuscular Volume 87.7 Mean Corpuscular Hemoglobin 29.2 Mean Corpuscular Hemoglobin Concent 33.2 Red Cell Distribution Width 17.1 H Platelet Count 175 Mean Platelet Volume 10.6 H Neutrophils % 83.1 H Lymphocytes % 6.3 L Monocytes % 7.7 Eosinophils % 1.5 Basophils % 0.4 Nucleated Red Blood Cells % 0.1 H Neutrophils # 17.6 H Lymphocytes # 1.3 Monocytes # 1.6 H Eosinophils # 0.3 Basophils # 0.1 Nucleated Red Blood Cells # 0.0 Prothrombin Time 20.2 H Prothrombin Time Ratio 1.6 INR International Normalized Ratio 1.71 Sodium Level 133 L Potassium Level 4.4 Chloride Level 103 Carbon Dioxide Level 26 Anion Gap 8 Blood Urea Nitrogen 8 Creatinine 0.66 Glucose Level 91 Lactic Acid Level 2.6 H Calcium Level 7.8 L Test 11/21/16 01:07 11/21/16 05:00 11/21/16 08:09 Bedside Glucose 110 141 White Blood Count 16.3 #H Red Blood Count 3.30 L Hemoglobin 9.3 L Hematocrit 29.4 L Mean Corpuscular Volume 89.1 Mean Corpuscular Hemoglobin 28.2 L Mean Corpuscular Hemoglobin Concent 31.6 L Red Cell Distribution Width 16.9 H Platelet Count 163 Mean Platelet Volume 10.2 Neutrophils % 79.7 H Lymphocytes % 7.0 L Monocytes % 10.1 Eosinophils % 2.0 Basophils % 0.4 Nucleated Red Blood Cells % 0.2 H Neutrophils # 13.0 H Lymphocytes # 1.1 Monocytes # 1.7 H Eosinophils # 0.3 Basophils # 0.1 Nucleated Red Blood Cells # 0.0 Sodium Level 137 Potassium Level 4.0 Chloride Level 103 Carbon Dioxide Level 28 Anion Gap 10 Blood Urea Nitrogen 7 Creatinine 0.67 Glucose Level 130 Calcium Level 7.7 L Phosphorus Level 2.6 Magnesium Level 1.2 L Medications Medications Current Medications Ondansetron HCl (Zofran Tab) 4 mg Q6H PRN PO NAUSEA AND/OR VOMITING Last administered on 11/18/16 08:09; Admin Dose 4 MG; Start 11/09/16 at 02:00 Metoclopramide HCl (Reglan) 10 mg Q6H PRN IV NAUSEA AND/OR VOMITING Last administered on 11/16/16 21:15; Admin Dose 10 MG; Start 11/09/16 at 02:00 Acetaminophen (Tylenol Tab) 650 mg Q6H PRN PO PAIN LEVEL 1-3 OR FEVER; Start at 02:00 Acetaminophen/ Hydrocodone Bitart ([place] (5/325)) 1 tab Q6H PRN PO MODERATE PAIN LEVEL 4-6 Last administered on 11/16/16 11:27; Admin Dose 1 TAB; Start 11/09/16 at 02:00 Acetaminophen/ Hydrocodone Bitart 2 tab 2 tab Q6H PRN PO SEVERE PAIN LEVEL 7- 10 Last administered on 11/18/16 08:04; Admin Dose 2 TAB; Start 11/09/16 at 02: 00 Sodium Chloride (NS) 250 ml @ 250 mls/hr PRN PRN IV SBP <80 Last administered on 11/11/16 00:52; Admin Dose 250 MLS/HR; Start 11/10/16 at 17:30 Acetylcysteine (Nac) 600 mg BID PO Last administered on 11/18/16 20:49; Admin Dose 600 MG; Start 11/12/16 at 11:30 Lorazepam (Ativan) 1 mg Q4H PRN IV ANXIETY Last administered on 11/14/16 23:32 ; Admin Dose 1 MG; Start 11/14/16 at 23:30 Al Hydrox/Mg Hydrox/Simethicone (Mag-Al Plus) 30 ml Q6H PRN PO GASTROINTESTINAL UPSET Last administered on 11/16/16 21:15; Admin Dose 30 ML; Start 11/16/16 at 21:30 Diagnostic Test (Pha) 1 ea 1 ea 02 XX Last administered on 11/21/16 01:26; Admin Dose 1 EA; Start 11/18/16 at 02:00 Phenylephrine HCl 80 mg/Dextrose 500 ml @ 37.5 mls/hr TITRATE IV Last administered on 11/21/16 01:10; Admin Dose 22.5 MLS/HR; Start 11/18/16 at 06:15 Potassium Cl/ Dextrose/Lact Ringer's (D5-Lr + KCl 20 Meq) 1,000 ml @ 150 mls/ hr Q6H40M IV Last administered on 11/21/16 01:05; Admin Dose 150 MLS/HR; Start 11/18/16 at 14:00 Hydromorphone HCl (Dilaudid) 1 mg Q2HWA PRN IV PAIN Last administered on 04:18; Admin Dose 1 MG; Start 11/18/16 at 13:30 Ondansetron HCl 4 mg 4 mg Q6H PRN IV NAUSEA AND/OR VOMITING; Start 11/18/16 at 14:00 Norepinephrine/ Dextrose (Levophed/D5W) 500 ml @ 1.87 mls/hr TITRATE IV ; Start 11/18/16 at 15:00 Pantoprazole 40 mg 40 mg BID@06,18 IV Last administered on 11/21/16 05:58; Admin Dose 40 MG; Start 11/20/16 at 18:00 Metronidazole 100 ml @ 100 mls/hr Q8 IVPB Last administered on 11/21/16 05:59 ; Admin Dose 100 MLS/HR; Start 11/20/16 at 22:00 Piperacillin Sod/ Tazobactam Sod (Zosyn 3.375gm/ 100 ml (Pmx)) 100 ml @ 200 mls /hr Q6 IVPB Last administered on 11/21/16 05:59; Admin Dose 200 MLS/HR; Start 11/21/16 at 00:00 Octreotide Acetate (Sandostatin) 75 mcg TID SC ; Start 11/21/16 at 09:00 Procedures Procedures PROCEDURE: XR Chest. CLINICAL INDICATION: Shortness of breath. TECHNIQUE: Single frontal view. COMPARISON: 11/18/2016. FINDINGS: The endotracheal tube has been removed. The nasogastric tube and right internal jugular vein catheter remain in satisfactory position. There is left basilar air space disease consistent with atelectasis or pneumonia, worse than seen previously. The lungs are otherwise clear. The heart is enlarged. There are small bilateral pleural effusions. There is no pneumothorax. IMPRESSION: 1. Endotracheal tube removed. 2. Worse appearance of the left lung base. 3. Small bilateral pleural effusions. RPTAT: QQ .Willy Mustafa MD, Date Time Electronically viewed and signed by .Willy Mustafa MD, on 11/21/2016 11:06 .R/ CC: [facility] SAMS [facility], [facility] JYOTHI BENAVIDES Nov 21, 2016 09:09
[2016-11-21] MEDS: OCTREOTIDE 100 MCG INJ SC SCH ×3 (09:17→21:19)
[2016-11-21] MEDS: INSULIN ASPART [NOVOLOG] 3 ML PEN SC SCH ×4 (09:18→21:00)
[2016-11-21] MEDS ORDERED: DEXTROSE 5%-0.9% NACL 1,000 ML IV SCH (09:30)
[2016-11-21] MEDS: D5-NS + KCL 20 MEQ 1,000 ML IV SCH ×3 (10:00→22:37)
[2016-11-21] MEDS ORDERED: POTASSIUM CHLORIDE 20 MEQ in DEXTROSE 5%-0.9% NACL 1,000 ML IV SCH (10:00)
[2016-11-21] MEDS ORDERED: MAGNESIUM SULFATE 3 GM in SOD CHLORIDE 0.9% 100 ML IVPB ONE (10:00)
[2016-11-21] MEDS: ACETYLCYSTEINE 600 MG CAP PO SCH (10:21)
--- NOTE | 2016-11-21 10:43 | CONS ---
Date/Time of Note Date/Time of Note DATE: 11/21/16 TIME: 10:43 Consult Date/Type/Reason Admit Date/Time Nov 09, 2016 at 00:55 Initial Consult Date 11/17/16 Type of Consultation: pulmonary ICU Ordering Provider: JYOTHI BENAVIDES Subjective Awake alert oriented complaining of sore throat Continues vasopressors Objective Vital Signs Date Time Temp Pulse Resp B/P Pulse Ox O2 Delivery O2 Flow Rate FiO2 11/21/16 09:30 77 19 128/79 100 11/21/16 09:00 Nasal Cannula 4.0 11/21/16 08:00 98.4 11/18/16 20:00 27 Intake and Output 11/20/16 11/20/16 11/21/16 15:00 23:00 07:00 Intake Total 1443.75 ml 893.75 ml 2560 ml Output Total 820 ml 910 ml 780 ml Balance 623.75 ml -16.25 ml 1780 ml Exam GENERAL: Well-nourished well-developed lady comfortable at rest VITAL SIGNS: per chart NECK: Supple. No JVD or lymphadenopathy. CARDIAC EXAM: S1, S2. No added sounds or murmurs. CHEST: Diminished air entry both lung bases. ABDOMEN: Diminished bowel sounds no guarding or rebound EXTREMITIES: No cyanosis, clubbing or edema. NEUROLOGIC: Generalized weakness. No focal deficits. Results/Medications Result Diagram: 11/21/16 0500 11/21/16 0500 Results 24 hrs Laboratory Tests Test 11/20/16 13:51 11/20/16 17:21 11/20/16 18:35 11/20/16 21:22 Bedside Glucose 120 108 124 White Blood Count 21.2 H Red Blood Count 3.67 L Hemoglobin 10.7 L Hematocrit 32.2 L Mean Corpuscular Volume 87.7 Mean Corpuscular Hemoglobin 29.2 Mean Corpuscular Hemoglobin Concent 33.2 Red Cell Distribution Width 17.1 H Platelet Count 175 Mean Platelet Volume 10.6 H Neutrophils % 83.1 H Lymphocytes % 6.3 L Monocytes % 7.7 Eosinophils % 1.5 Basophils % 0.4 Nucleated Red Blood Cells % 0.1 H Neutrophils # 17.6 H Lymphocytes # 1.3 Monocytes # 1.6 H Eosinophils # 0.3 Basophils # 0.1 Nucleated Red Blood Cells # 0.0 Prothrombin Time 20.2 H Prothrombin Time Ratio 1.6 INR International Normalized Ratio 1.71 Sodium Level 133 L Potassium Level 4.4 Chloride Level 103 Carbon Dioxide Level 26 Anion Gap 8 Blood Urea Nitrogen 8 Creatinine 0.66 Glucose Level 91 Lactic Acid Level 2.6 H Calcium Level 7.8 L Test 11/21/16 01:07 11/21/16 05:00 11/21/16 08:09 11/21/16 09:30 Bedside Glucose 110 141 White Blood Count 16.3 #H Red Blood Count 3.30 L Hemoglobin 9.3 L Hematocrit 29.4 L Mean Corpuscular Volume 89.1 Mean Corpuscular Hemoglobin 28.2 L Mean Corpuscular Hemoglobin Concent 31.6 L Red Cell Distribution Width 16.9 H Platelet Count 163 Mean Platelet Volume 10.2 Neutrophils % 79.7 H Lymphocytes % 7.0 L Monocytes % 10.1 Eosinophils % 2.0 Basophils % 0.4 Nucleated Red Blood Cells % 0.2 H Neutrophils # 13.0 H Lymphocytes # 1.1 Monocytes # 1.7 H Eosinophils # 0.3 Basophils # 0.1 Nucleated Red Blood Cells # 0.0 Sodium Level 137 Potassium Level 4.0 Chloride Level 103 Carbon Dioxide Level 28 Anion Gap 10 Blood Urea Nitrogen 7 Creatinine 0.67 Glucose Level 130 Calcium Level 7.7 L Phosphorus Level 2.6 Magnesium Level 1.2 L Lactic Acid Level 1.9 Medications Current Medications Ondansetron HCl (Zofran Tab) 4 mg Q6H PRN PO NAUSEA AND/OR VOMITING Last administered on 11/18/16 08:09; Admin Dose 4 MG; Start 11/09/16 at 02:00 Metoclopramide HCl (Reglan) 10 mg Q6H PRN IV NAUSEA AND/OR VOMITING Last administered on 11/16/16 21:15; Admin Dose 10 MG; Start 11/09/16 at 02:00 Acetaminophen (Tylenol Tab) 650 mg Q6H PRN PO PAIN LEVEL 1-3 OR FEVER; Start at 02:00 Acetaminophen/ Hydrocodone Bitart ([place] (5/325)) 1 tab Q6H PRN PO MODERATE PAIN LEVEL 4-6 Last administered on 11/16/16 11:27; Admin Dose 1 TAB; Start 11/09/16 at 02:00 Acetaminophen/ Hydrocodone Bitart 2 tab 2 tab Q6H PRN PO SEVERE PAIN LEVEL 7- 10 Last administered on 11/18/16 08:04; Admin Dose 2 TAB; Start 11/09/16 at 02: 00 Sodium Chloride (NS) 250 ml @ 250 mls/hr PRN PRN IV SBP <80 Last administered on 11/11/16 00:52; Admin Dose 250 MLS/HR; Start 11/10/16 at 17:30 Acetylcysteine (Nac) 600 mg BID PO Last administered on 11/21/16 10:21; Admin Dose 600 MG; Start 11/12/16 at 11:30 Lorazepam (Ativan) 1 mg Q4H PRN IV ANXIETY Last administered on 11/14/16 23:32 ; Admin Dose 1 MG; Start 11/14/16 at 23:30 Al Hydrox/Mg Hydrox/Simethicone (Mag-Al Plus) 30 ml Q6H PRN PO GASTROINTESTINAL UPSET Last administered on 11/16/16 21:15; Admin Dose 30 ML; Start 11/16/16 at 21:30 Diagnostic Test (Pha) 1 ea 1 ea 02 XX Last administered on 11/21/16 01:26; Admin Dose 1 EA; Start 11/18/16 at 02:00 Phenylephrine HCl/ Dextrose (Santiago-Syneph/D5W) 500 ml @ 37.5 mls/hr TITRATE IV Last administered on 11/21/16 01:10; Admin Dose 22.5 MLS/HR; Start 11/18/16 at 06:15 Hydromorphone HCl (Dilaudid) 1 mg Q2HWA PRN IV PAIN Last administered on 04:18; Admin Dose 1 MG; Start 11/18/16 at 13:30 Ondansetron HCl 4 mg 4 mg Q6H PRN IV NAUSEA AND/OR VOMITING; Start 11/18/16 at 14:00 Norepinephrine/ Dextrose (Levophed/D5W) 500 ml @ 1.87 mls/hr TITRATE IV ; Start 11/18/16 at 15:00 Pantoprazole 40 mg 40 mg BID@06,18 IV Last administered on 11/21/16 05:58; Admin Dose 40 MG; Start 11/20/16 at 18:00 Metronidazole 100 ml @ 100 mls/hr Q8 IVPB Last administered on 11/21/16 05:59 ; Admin Dose 100 MLS/HR; Start 11/20/16 at 22:00 Piperacillin Sod/ Tazobactam Sod (Zosyn 3.375gm/ 100 ml (Pmx)) 100 ml @ 200 mls /hr Q6 IVPB Last administered on 11/21/16 05:59; Admin Dose 200 MLS/HR; Start 11/21/16 at 00:00 Octreotide Acetate 75 mcg 75 mcg TID SC Last administered on 11/21/16 09:17; Admin Dose 75 MCG; Start 11/21/16 at 09:00 Magnesium Sulfate 3 gm/Sodium Chloride 106 ml @ 35.333 mls/ hr ONCE ONCE IVPB Last administered on 11/21/16 10:21; Admin Dose 35.333 MLS/HR; Start at 10:00; Stop 11/21/16 at 12:59 Potassium Chloride/Dextrose/ Sod Cl (D5-NS + KCl 20 Meq) 1,000 ml @ 150 mls/hr Q6H40M IV ; Start 11/21/16 at 10:00 Morphine Sulfate (morphine) 2 mg Q4H PRN IV pain; Start 11/21/16 at 10:30 Phenol (Cepastat Lozenge) 1 lozenge Q1H PRN MT throat irritation; Start at 10:30 Assessment/Plan Chief Complaint/Hosp Course Assessment 1. Status post respiratory failure now safely extubated 2. Metastatic ovarian carcinoma status post tumor debulking 3. Postoperative leukocytosis improved with addition of Zosyn 4. Septic shock Plan 1. Continue vasopressors 2. Encourage incentive spirometry 3. Continue postop surgical care 4. Continue nothing by mouth 5. Continue antibiotics Disposition Continue ICU care Problems: MARCE SAMS MD, [facility] Nov 21, 2016 10:43
--- NOTE | 2016-11-21 11:07 | RADRPT ---
PROCEDURE: XR Chest. CLINICAL INDICATION: Shortness of breath. TECHNIQUE: Single frontal view. COMPARISON: 11/18/2016. FINDINGS: The endotracheal tube has been removed. The nasogastric tube and right internal jugular vein cathet er remain in satisfactory position. There is left basilar air space disease consistent with atelect asis or pneumonia, worse than seen previously. The lungs are otherwise clear. The heart is enlarged. There are small bilateral pleural effusions. There is no pneumothorax. IMPRESSION: 1. Endotracheal tube removed. 2. Worse appearance of the left lung base. 3. Small bilateral pleural effusions. RPTAT: QQ .Willy Mustafa MD, MD Date Time Electronically viewed and signed by .Willy Mustafa MD, MD on 11/21/2016 11:06 .R/
[2016-11-21] MEDS ORDERED: DEXTROSE 50% 50 ML SYRINGE ONE (11:42)
[2016-11-21] MEDS: DEXTROSE 50% 50 ML SYRINGE IV PRN (11:45)
[2016-11-21] MEDS ORDERED: GLUCOSE GEL 15 GRAM TUBE PO PRN ×2 (12:00)
[2016-11-21] MEDS ORDERED: DEXTROSE 50% 50 ML SYRINGE IV PRN (12:00)
[2016-11-21] MEDS ORDERED: GLUCOSE GEL 15 GRAM TUBE BUCCAL PRN (12:00)
[2016-11-21] MEDS ORDERED: GLUCAGON 1 MG INJ IM PRN (12:00)
[2016-11-21] MEDS: CEPASTAT LOZENGE MT PRN (12:28)
[2016-11-21] MEDS: ALBUTEROL 18 GM INHALER INH SCH ×3 (13:08→20:00)
[2016-11-21] MEDS: FUROSEMIDE 20 MG INJ IV SCH (13:09)
[2016-11-21] MEDS: ALBUMIN HUMAN 25% 100 ML IV SCH ×2 (13:09→20:24)
--- NOTE | 2016-11-21 14:14 | PN ---
Date/Time of Note Date/Time of Note DATE: 11/21/16 TIME: 14:09 Assessment/Plan VTE Prophylaxis VTE Prophylaxis Intervention: SCD's Lines/Catheters IV [facility] Central Line Urinary Cath still in place: Yes Assessment/Plan Chief Complaint/Hosp Course Probable ovarian cancer vs peritoneal Problems: Assessment/Plan A-improved with less pressor needed and tapering PLEASE NOTE; WBC of approximately 20K commonly seen after splenectomy with distal pancreatectomy and will continue 15-18K NO definite evidence of septic shock as lactic acid minimally elevated and all cultures negative;. P- Continue current rx Raphael probably beable to reduce IV fluid rate tomorrow and consider TPN; but lasix may delay that Subjective 24 Hr Interval Summary Free Text/Dictation S- pain control adequate with less discomfort, alert no flatus and not OOB O- Resp- symmetric and pain free CVS- NSR Abd- Soft and clean; minimal tenderness, fluid leakage absent; probably was ascitic Ext- NT minimal edema A-improved with less pressor needed and tapering PLEASE NOTE; WBC of approximately 20K commonly seen after splenectomy with distal pancreatectomy and will continue 15-18K NO definite evidence of septic shock as lactic acid minimally elevated and all cultures negative;. P- Continue current rx Raphael probably beable to reduce IV fluid rate tomorrow and consider TPN; but lasix may delay that Exam/Review of Systems Vital Signs Vitals Vital Signs Date Time Temp Pulse Resp B/P Pulse Ox O2 Delivery O2 Flow Rate FiO2 11/21/16 13:45 97 22 109/67 96 11/21/16 13:00 Nasal Cannula 4.0 11/21/16 12:00 98.1 11/18/16 20:00 27 Intake and Output 11/20/16 11/20/16 11/21/16 15:00 23:00 07:00 Intake Total 1443.75 ml 893.75 ml 2578.75 ml Output Total 820 ml 910 ml 780 ml Balance 623.75 ml -16.25 ml 1798.75 ml Results Result Diagram: 11/21/16 0500 11/21/16 0500 Results 24 hrs Laboratory Tests Test 11/20/16 17:21 11/20/16 18:35 11/20/16 21:22 11/21/16 01:07 Bedside Glucose 108 124 110 White Blood Count 21.2 H Red Blood Count 3.67 L Hemoglobin 10.7 L Hematocrit 32.2 L Mean Corpuscular Volume 87.7 Mean Corpuscular Hemoglobin 29.2 Mean Corpuscular Hemoglobin Concent 33.2 Red Cell Distribution Width 17.1 H Platelet Count 175 Mean Platelet Volume 10.6 H Neutrophils % 83.1 H Lymphocytes % 6.3 L Monocytes % 7.7 Eosinophils % 1.5 Basophils % 0.4 Nucleated Red Blood Cells % 0.1 H Neutrophils # 17.6 H Lymphocytes # 1.3 Monocytes # 1.6 H Eosinophils # 0.3 Basophils # 0.1 Nucleated Red Blood Cells # 0.0 Prothrombin Time 20.2 H Prothrombin Time Ratio 1.6 INR International Normalized Ratio 1.71 Sodium Level 133 L Potassium Level 4.4 Chloride Level 103 Carbon Dioxide Level 26 Anion Gap 8 Blood Urea Nitrogen 8 Creatinine 0.66 Glucose Level 91 Lactic Acid Level 2.6 H Calcium Level 7.8 L Test 11/21/16 05:00 11/21/16 08:09 11/21/16 09:30 11/21/16 11:40 White Blood Count 16.3 #H Red Blood Count 3.30 L Hemoglobin 9.3 L Hematocrit 29.4 L Mean Corpuscular Volume 89.1 Mean Corpuscular Hemoglobin 28.2 L Mean Corpuscular Hemoglobin Concent 31.6 L Red Cell Distribution Width 16.9 H Platelet Count 163 Mean Platelet Volume 10.2 Neutrophils % 79.7 H Lymphocytes % 7.0 L Monocytes % 10.1 Eosinophils % 2.0 Basophils % 0.4 Nucleated Red Blood Cells % 0.2 H Neutrophils # 13.0 H Lymphocytes # 1.1 Monocytes # 1.7 H Eosinophils # 0.3 Basophils # 0.1 Nucleated Red Blood Cells # 0.0 Sodium Level 137 Potassium Level 4.0 Chloride Level 103 Carbon Dioxide Level 28 Anion Gap 10 Blood Urea Nitrogen 7 Creatinine 0.67 Glucose Level 130 Calcium Level 7.7 L Phosphorus Level 2.6 Magnesium Level 1.2 L Bedside Glucose 141 58 L Lactic Acid Level 1.9 Test 11/21/16 11:44 11/21/16 12:05 11/21/16 12:20 Bedside Glucose 61 L 115 101 Medications Medications Current Medications Ondansetron HCl (Zofran Tab) 4 mg Q6H PRN PO NAUSEA AND/OR VOMITING Last administered on 11/18/16 08:09; Admin Dose 4 MG; Start 11/09/16 at 02:00 Metoclopramide HCl (Reglan) 10 mg Q6H PRN IV NAUSEA AND/OR VOMITING Last administered on 11/16/16 21:15; Admin Dose 10 MG; Start 11/09/16 at 02:00 Acetaminophen (Tylenol Tab) 650 mg Q6H PRN PO PAIN LEVEL 1-3 OR FEVER; Start at 02:00 Acetaminophen/ Hydrocodone Bitart ([place] (5/325)) 1 tab Q6H PRN PO MODERATE PAIN LEVEL 4-6 Last administered on 11/16/16 11:27; Admin Dose 1 TAB; Start 11/09/16 at 02:00 Acetaminophen/ Hydrocodone Bitart 2 tab 2 tab Q6H PRN PO SEVERE PAIN LEVEL 7- 10 Last administered on 11/18/16 08:04; Admin Dose 2 TAB; Start 11/09/16 at 02: 00 Sodium Chloride (NS) 250 ml @ 250 mls/hr PRN PRN IV SBP <80 Last administered on 11/11/16 00:52; Admin Dose 250 MLS/HR; Start 11/10/16 at 17:30 Lorazepam (Ativan) 1 mg Q4H PRN IV ANXIETY Last administered on 11/14/16 23:32 ; Admin Dose 1 MG; Start 11/14/16 at 23:30 Al Hydrox/Mg Hydrox/Simethicone (Mag-Al Plus) 30 ml Q6H PRN PO GASTROINTESTINAL UPSET Last administered on 11/16/16 21:15; Admin Dose 30 ML; Start 11/16/16 at 21:30 Diagnostic Test (Pha) 1 ea 1 ea 02 XX Last administered on 11/21/16 01:26; Admin Dose 1 EA; Start 11/18/16 at 02:00 Phenylephrine HCl/ Dextrose ([place]-Syneph/D5W) 500 ml @ 37.5 mls/hr TITRATE IV Last administered on 11/21/16 01:10; Admin Dose 22.5 MLS/HR; Start 11/18/16 at 06:15 Hydromorphone HCl (Dilaudid) 1 mg Q2HWA PRN IV PAIN Last administered on 04:18; Admin Dose 1 MG; Start 11/18/16 at 13:30 Ondansetron HCl 4 mg 4 mg Q6H PRN IV NAUSEA AND/OR VOMITING; Start 11/18/16 at 14:00 Norepinephrine/ Dextrose (Levophed/D5W) 500 ml @ 1.87 mls/hr TITRATE IV ; Start 11/18/16 at 15:00 Pantoprazole 40 mg 40 mg BID@06,18 IV Last administered on 11/21/16 05:58; Admin Dose 40 MG; Start 11/20/16 at 18:00 Metronidazole 100 ml @ 100 mls/hr Q8 IVPB Last administered on 11/21/16 05:59 ; Admin Dose 100 MLS/HR; Start 11/20/16 at 22:00 Piperacillin Sod/ Tazobactam Sod (Zosyn 3.375gm/ 100 ml (Pmx)) 100 ml @ 200 mls /hr Q6 IVPB Last administered on 11/21/16 11:46; Admin Dose 200 MLS/HR; Start 11/21/16 at 00:00 Octreotide Acetate 75 mcg 75 mcg TID SC Last administered on 11/21/16 09:17; Admin Dose 75 MCG; Start 11/21/16 at 09:00 Potassium Chloride/Dextrose/ Sod Cl (D5-NS + KCl 20 Meq) 1,000 ml @ 150 mls/hr Q6H40M IV Last administered on 11/21/16 12:18; Admin Dose 150 MLS/HR; Start at 10:00 Morphine Sulfate (morphine) 2 mg Q4H PRN IV pain; Start 11/21/16 at 10:30 Phenol (Cepastat Lozenge) 1 lozenge Q1H PRN MT throat irritation Last administered on 11/21/16 12:28; Admin Dose 1 LOZENGE; Start 11/21/16 at 10:30 Miscellaneous Information 1 ea NOTE XX ; Start 11/21/16 at 12:00 Glucose (Glutose) 15 gm Q15M PRN PO DECREASED GLUCOSE; Start 11/21/16 at 12:00 Glucose (Glutose) 22.5 gm Q15M PRN PO DECREASED GLUCOSE; Start 11/21/16 at 12: 00 Dextrose (D50w Syringe) 25 ml Q15M PRN IV DECREASED GLUCOSE Last administered on 11/21/16 11:45; Admin Dose 25 ML; Start 11/21/16 at 12:00 Dextrose (D50w Syringe) 50 ml Q15M PRN IV DECREASED GLUCOSE; Start 11/21/16 at 12:00 Glucagon (Glucagen) 1 mg Q15M PRN IM DECREASED GLUCOSE; Start 11/21/16 at 12:00 Glucose (Glutose) 15 gm Q15M PRN BUCCAL DECREASED GLUCOSE; Start 11/21/16 at 12 :00 Furosemide 20 mg 20 mg DAILY IV Last administered on 11/21/16 13:09; Admin Dose 20 MG; Start 11/21/16 at 12:30 Albumin Human (Albumin Human 25%) 100 ml @ 100 mls/hr Q8H IV Last administered on 11/21/16 13:09; Admin Dose 100 MLS/HR; Start 11/21/16 at 12:30 ; Stop 11/22/16 at 05:29 DILLON MARTÍNEZ MD Nov 21, 2016 14:13
--- NOTE | 2016-11-21 14:43 | CONS ---
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 Problems: Additional Assessment/Plan #Probably [facility] [facility] Malignancy - CT with IV contrast of abd and pel showed loculated ascites, peritoneal mets, omental mets, bilateral adnexal masses; - Patient taken to OR by Dr. Pierce today 11/17/16 that showed stage IIIC ovarian cancer with very advanced disease with confluent disease, which was debulked to < 5 mm residual disease. An en-bloc omentectomy with splenectomy and distal pancreatectomy (minimal, about 1/2 cm) was needed to remove the bulky /massive upper abdominal disease. - Plan for chemotherapy in 10-[address] Pierce. #Ascites - s/p paracentesis 11/10/16 for her abdominal distension, with removal of 4.9L, and again today intraoperatively with removal of 5L #LE Swelling - bilateral LE Doppler neg for DVT # Anemia -Hg currently > 10. Post op transfusion parameters per [facility] [facility] ONC -pt last received 2 units of PRBC and 2 units of FFP on 11/18 #Leukocytosis - likely secondary to splenectomy. -continue antibiotics in case of infection . appreciate sock boarder recs Approximately 40 min were spent at patient's bedside and in coordination of her care Consultation Date/Type/Reason Admit Date/Time Nov 09, 2016 at 00:55 Initial Consult Date 11/17/16 Type of Consultation: Oncology Reason for Consultation ovarian cancer Referring Provider: JYOTHI BENAVIDES 24 HR Interval Summary Free Text/Dictation pt is extubated. c/o throat pain Exam/Review of Systems Vital Signs Vitals Vital Signs Date Time Temp Pulse Resp B/P Pulse Ox O2 Delivery O2 Flow Rate FiO2 11/21/16 13:45 97 22 109/67 96 11/21/16 13:00 Nasal Cannula 4.0 11/21/16 12:00 98.1 11/18/16 20:00 27 Intake and Output 11/20/16 11/20/16 11/21/16 15:00 23:00 07:00 Intake Total 1443.75 ml 893.75 ml 2578.75 ml Output Total 820 ml 910 ml 780 ml Balance 623.75 ml -16.25 ml 1798.75 ml Exam Constitutional: alert, oriented Psych: no complaints Head: atraumatic, normocephalic Eyes: nl conjunctiva ENMT: nl external ears & nose, other (NGT in place) Respiratory: clear to auscultation, normal air movement Cardiovascular: regular rate and rhythm Gastrointestinal: soft, surgical scars Musculoskeletal: nl extremities to inspection, nl gait and stance Results Result Diagram: 11/21/16 0500 11/21/16 0500 Results 24 hrs Laboratory Tests Test 11/20/16 17:21 11/20/16 18:35 11/20/16 21:22 11/21/16 01:07 Bedside Glucose 108 124 110 White Blood Count 21.2 H Red Blood Count 3.67 L Hemoglobin 10.7 L Hematocrit 32.2 L Mean Corpuscular Volume 87.7 Mean Corpuscular Hemoglobin 29.2 Mean Corpuscular Hemoglobin Concent 33.2 Red Cell Distribution Width 17.1 H Platelet Count 175 Mean Platelet Volume 10.6 H Neutrophils % 83.1 H Lymphocytes % 6.3 L Monocytes % 7.7 Eosinophils % 1.5 Basophils % 0.4 Nucleated Red Blood Cells % 0.1 H Neutrophils # 17.6 H Lymphocytes # 1.3 Monocytes # 1.6 H Eosinophils # 0.3 Basophils # 0.1 Nucleated Red Blood Cells # 0.0 Prothrombin Time 20.2 H Prothrombin Time Ratio 1.6 INR International Normalized Ratio 1.71 Sodium Level 133 L Potassium Level 4.4 Chloride Level 103 Carbon Dioxide Level 26 Anion Gap 8 Blood Urea Nitrogen 8 Creatinine 0.66 Glucose Level 91 Lactic Acid Level 2.6 H Calcium Level 7.8 L Test 11/21/16 05:00 11/21/16 08:09 11/21/16 09:30 11/21/16 11:40 White Blood Count 16.3 #H Red Blood Count 3.30 L Hemoglobin 9.3 L Hematocrit 29.4 L Mean Corpuscular Volume 89.1 Mean Corpuscular Hemoglobin 28.2 L Mean Corpuscular Hemoglobin Concent 31.6 L Red Cell Distribution Width 16.9 H Platelet Count 163 Mean Platelet Volume 10.2 Neutrophils % 79.7 H Lymphocytes % 7.0 L Monocytes % 10.1 Eosinophils % 2.0 Basophils % 0.4 Nucleated Red Blood Cells % 0.2 H Neutrophils # 13.0 H Lymphocytes # 1.1 Monocytes # 1.7 H Eosinophils # 0.3 Basophils # 0.1 Nucleated Red Blood Cells # 0.0 Sodium Level 137 Potassium Level 4.0 Chloride Level 103 Carbon Dioxide Level 28 Anion Gap 10 Blood Urea Nitrogen 7 Creatinine 0.67 Glucose Level 130 Calcium Level 7.7 L Phosphorus Level 2.6 Magnesium Level 1.2 L Bedside Glucose 141 58 L Lactic Acid Level 1.9 Test 11/21/16 11:44 11/21/16 12:05 11/21/16 12:20 Bedside Glucose 61 L 115 101 Medications Medications Current Medications Ondansetron HCl (Zofran Tab) 4 mg Q6H PRN PO NAUSEA AND/OR VOMITING Last administered on 11/18/16 08:09; Admin Dose 4 MG; Start 11/09/16 at 02:00 Metoclopramide HCl (Reglan) 10 mg Q6H PRN IV NAUSEA AND/OR VOMITING Last administered on 11/16/16 21:15; Admin Dose 10 MG; Start 11/09/16 at 02:00 Acetaminophen (Tylenol Tab) 650 mg Q6H PRN PO PAIN LEVEL 1-3 OR FEVER; Start at 02:00 Acetaminophen/ Hydrocodone Bitart ([place] (5/325)) 1 tab Q6H PRN PO MODERATE PAIN LEVEL 4-6 Last administered on 11/16/16 11:27; Admin Dose 1 TAB; Start 11/09/16 at 02:00 Acetaminophen/ Hydrocodone Bitart 2 tab 2 tab Q6H PRN PO SEVERE PAIN LEVEL 7- 10 Last administered on 11/18/16 08:04; Admin Dose 2 TAB; Start 11/09/16 at 02: 00 Sodium Chloride (NS) 250 ml @ 250 mls/hr PRN PRN IV SBP <80 Last administered on 11/11/16 00:52; Admin Dose 250 MLS/HR; Start 11/10/16 at 17:30 Lorazepam (Ativan) 1 mg Q4H PRN IV ANXIETY Last administered on 11/14/16 23:32 ; Admin Dose 1 MG; Start 11/14/16 at 23:30 Al Hydrox/Mg Hydrox/Simethicone (Mag-Al Plus) 30 ml Q6H PRN PO GASTROINTESTINAL UPSET Last administered on 11/16/16 21:15; Admin Dose 30 ML; Start 11/16/16 at 21:30 Diagnostic Test (Pha) 1 ea 1 ea 02 XX Last administered on 11/21/16 01:26; Admin Dose 1 EA; Start 11/18/16 at 02:00 Phenylephrine HCl/ Dextrose ([place]antiago-Syneph/D5W) 500 ml @ 37.5 mls/hr TITRATE IV Last administered on 11/21/16 01:10; Admin Dose 22.5 MLS/HR; Start 11/18/16 at 06:15 Hydromorphone HCl (Dilaudid) 1 mg Q2HWA PRN IV PAIN Last administered on 04:18; Admin Dose 1 MG; Start 11/18/16 at 13:30 Ondansetron HCl 4 mg 4 mg Q6H PRN IV NAUSEA AND/OR VOMITING; Start 11/18/16 at 14:00 Norepinephrine/ Dextrose (Levophed/D5W) 500 ml @ 1.87 mls/hr TITRATE IV ; Start 11/18/16 at 15:00 Pantoprazole 40 mg 40 mg BID@06,18 IV Last administered on 11/21/16 05:58; Admin Dose 40 MG; Start 11/20/16 at 18:00 Metronidazole 100 ml @ 100 mls/hr Q8 IVPB Last administered on 11/21/16 05:59 ; Admin Dose 100 MLS/HR; Start 11/20/16 at 22:00 Piperacillin Sod/ Tazobactam Sod (Zosyn 3.375gm/ 100 ml (Pmx)) 100 ml @ 200 mls /hr Q6 IVPB Last administered on 11/21/16 11:46; Admin Dose 200 MLS/HR; Start 11/21/16 at 00:00 Octreotide Acetate 75 mcg 75 mcg TID SC Last administered on 11/21/16 09:17; Admin Dose 75 MCG; Start 11/21/16 at 09:00 Potassium Chloride/Dextrose/ Sod Cl (D5-NS + KCl 20 Meq) 1,000 ml @ 150 mls/hr Q6H40M IV Last administered on 11/21/16 12:18; Admin Dose 150 MLS/HR; Start at 10:00 Morphine Sulfate (morphine) 2 mg Q4H PRN IV pain; Start 11/21/16 at 10:30 Phenol (Cepastat Lozenge) 1 lozenge Q1H PRN MT throat irritation Last administered on 11/21/16 12:28; Admin Dose 1 LOZENGE; Start 11/21/16 at 10:30 Miscellaneous Information 1 ea NOTE XX ; Start 11/21/16 at 12:00 Glucose (Glutose) 15 gm Q15M PRN PO DECREASED GLUCOSE; Start 11/21/16 at 12:00 Glucose (Glutose) 22.5 gm Q15M PRN PO DECREASED GLUCOSE; Start 11/21/16 at 12: 00 Dextrose (D50w Syringe) 25 ml Q15M PRN IV DECREASED GLUCOSE Last administered on 11/21/16 11:45; Admin Dose 25 ML; Start 11/21/16 at 12:00 Dextrose (D50w Syringe) 50 ml Q15M PRN IV DECREASED GLUCOSE; Start 11/21/16 at 12:00 Glucagon (Glucagen) 1 mg Q15M PRN IM DECREASED GLUCOSE; Start 11/21/16 at 12:00 Glucose (Glutose) 15 gm Q15M PRN BUCCAL DECREASED GLUCOSE; Start 11/21/16 at 12 :00 Furosemide 20 mg 20 mg DAILY IV Last administered on 11/21/16 13:09; Admin Dose 20 MG; Start 11/21/16 at 12:30 Albumin Human (Albumin Human 25%) 100 ml @ 100 mls/hr Q8H IV Last administered on 11/21/16 13:09; Admin Dose 100 MLS/HR; Start 11/21/16 at 12:30 ; Stop 11/22/16 at 05:29 FLORINDA COATES M.D. Nov 21, 2016 14:43
[2016-11-21] MEDS: morphine 2 MG INJ IV PRN (17:43)
[2016-11-22] VITALS (33 sets, daily range): BP systolic 87–131; BP diastolic 49–78; PULSE 67–105; RESP 11–27
[2016-11-22] MEDS: PIPER-TAZO 3.375 GM IV (PMX) 100 ML IVPB SCH ×5 (00:02→23:11)
[2016-11-22] MEDS: ALBUTEROL 18 GM INHALER INH SCH ×4 (02:00→20:44)
[2016-11-22] MEDS: ACCU-CHEK XX SCH (02:00)
[2016-11-22] MEDS: HYDROmorphONE 1 MG/ML SYG IV PRN ×4 (03:55→20:46)
[2016-11-22 05:22] LABS: ADD SCAN DIFF NO
[2016-11-22 05:48] LABS: ABNORMAL IP MESSAGE 1; ALBUMIN 1.9 g/dl (3.3-4.9); ALBUMIN/GLOBULIN RATIO 0.9; BASOPHIL # 0.1 10^3/ul (0.0-0.1); BASOPHILS % 0.6 % (0.0-2.0); BILIRUBIN,INDIRECT 0.8 mg/dl (0-1.1); BILIRUBIN,TOTAL 0.8 mg/dl (0.2-1.3); CALCIUM 7.3 mg/dl (8.4-10.2); CREATININE 0.6 mg/dl (0.44-1.00); EOSINOPHILS # 0.7 10^3/ul (0.0-0.5); EOSINOPHILS % 5.4 % (0.0-7.0); HEMATOCRIT 28.5 % (37.0-47.0); HEMOGLOBIN 8.9 g/dl (12.0-16.0); LYMPHOCYTES # 1.2 10^3/ul (0.8-2.9); LYMPHOCYTES % 9.8 % (15.0-51.0); MAGNESIUM 1.6 mg/dl (1.7-2.5); MEAN CORPUSCULAR HEMOGLOBIN 28.2 pg (29.0-33.0); MEAN CORPUSCULAR HGB CONC 31.2 g/dl (32.0-37.0); MEAN CORPUSCULAR VOLUME 90.2 fl (82.0-101.0); MEAN PLATELET VOLUME 10.4 fl (7.4-10.4); MONOCYTE # 1.8 10^3/ul (0.3-0.9); MONOCYTES % 14.9 % (0.0-11.0); NEUTROPHIL # 8.2 10^3/ul (1.6-7.5); NEUTROPHILS % 68.9 % (39.0-77.0); PLATELET COUNT 180 10^3/UL (140-415); POTASSIUM 3.9 mmol/L (3.5-5.1); RED BLOOD COUNT 3.16 10^6/ul (4.20-5.40); RED CELL DISTRIBUTION WIDTH 16.6 % (11.5-14.5); WHITE BLOOD COUNT 11.9 10^3/ul (4.8-10.8)
[2016-11-22] MEDS: ALBUMIN HUMAN 25% 100 ML IV SCH (06:03)
[2016-11-22] MEDS: metroNIDAZOLE 500 MG/NS (PMX) 100 ML IVPB SCH ×3 (06:04→21:12)
[2016-11-22] MEDS: D5-NS + KCL 20 MEQ 1,000 ML IV SCH ×3 (06:04→17:13)
[2016-11-22] MEDS: PANTOPRAZOLE 40 MG INJ IV SCH ×2 (06:04→17:13)
[2016-11-22] MEDS: INSULIN ASPART [NOVOLOG] 3 ML PEN SC SCH ×4 (07:35→20:49)
--- NOTE | 2016-11-22 08:23 | PN ---
Date/Time of Note Date/Time of Note DATE: 11/22/16 TIME: 08:18 Assessment/Plan VTE Prophylaxis VTE Prophylaxis Intervention: SCD's Lines/Catheters IV Catheter Type (from Nrsg): Central Line Central line still needed: Yes Urinary Cath still in place: Yes Reason Cath still needed: urinary retention Assessment/Plan Chief Complaint/Hosp Course Probable ovarian cancer vs peritoneal Problems: Assessment/Plan A- 1- improved with OK BP off pressor 2- WBC surprisingly low despite splenectomy P- 1- Will slightly reduce IVF and possibly TPN tomorrow 2- IFF approved by IM/hospitalist OK with transfer to [facility] of if necessary [facility]; no other area please Subjective 24 Hr Interval Summary Free Text/Dictation Comfortable and was in chair yesterday. No flatus. Exam/Review of Systems Vital Signs Vitals Vital Signs Date Time Temp Pulse Resp B/P Pulse Ox O2 Delivery O2 Flow Rate FiO2 11/22/16 06:30 72 13 100/67 100 Nasal Cannula 11/22/16 05:59 1.0 11/22/16 04:00 96.6 11/18/16 20:00 27 Intake and Output 11/21/16 11/21/16 11/22/16 15:00 23:00 07:00 Intake Total 722.22 ml 1526.86 ml 1029.99 ml Output Total 2000 ml 1490 ml 1285 ml Balance -1277.78 ml 36.86 ml -255.01 ml Exam O- Resp- symmetric and pain free CVS- NSR Abd- Soft and clean; minimal tenderness, fluid leakage absent; probably was ascitic Ext- NT minimal edema Results Result Diagram: 11/22/16 0450 11/22/16 0450 Results 24 hrs Laboratory Tests Test 11/21/16 09:30 11/21/16 11:40 11/21/16 11:44 11/21/16 12:05 Lactic Acid Level 1.9 Bedside Glucose 58 L 61 L 115 Test 11/21/16 12:20 11/21/16 18:00 11/21/16 21:14 11/22/16 04:50 Bedside Glucose 101 133 121 White Blood Count 11.9 #H Red Blood Count 3.16 L Hemoglobin 8.9 L Hematocrit 28.5 L Mean Corpuscular Volume 90.2 Mean Corpuscular Hemoglobin 28.2 L Mean Corpuscular Hemoglobin Concent 31.2 L Red Cell Distribution Width 16.6 H Platelet Count 180 Mean Platelet Volume 10.4 Neutrophils % 68.9 Lymphocytes % 9.8 L Monocytes % 14.9 H Eosinophils % 5.4 Basophils % 0.6 Nucleated Red Blood Cells % 0.0 Neutrophils # 8.2 H Lymphocytes # 1.2 Monocytes # 1.8 H Eosinophils # 0.7 H Basophils # 0.1 Nucleated Red Blood Cells # 0.0 Sodium Level 137 Potassium Level 3.9 Chloride Level 106 Carbon Dioxide Level 30 Anion Gap 5 L Blood Urea Nitrogen 4 L Creatinine 0.60 Glucose Level 113 Calcium Level 7.3 L Magnesium Level 1.6 L Total Bilirubin 0.8 Direct Bilirubin 0.00 Indirect Bilirubin 0.8 Aspartate Amino Transf (AST/SGOT) 14 L Alanine Aminotransferase (ALT/SGPT) 25 Alkaline Phosphatase 57 Total Protein 4.0 L Albumin 1.9 L Globulin 2.10 Albumin/Globulin Ratio 0.90 Medications Medications Current Medications Ondansetron HCl (Zofran Tab) 4 mg Q6H PRN PO NAUSEA AND/OR VOMITING Last administered on 11/18/16 08:09; Admin Dose 4 MG; Start 11/09/16 at 02:00 Metoclopramide HCl (Reglan) 10 mg Q6H PRN IV NAUSEA AND/OR VOMITING Last administered on 11/16/16 21:15; Admin Dose 10 MG; Start 11/09/16 at 02:00 Acetaminophen (Tylenol Tab) 650 mg Q6H PRN PO PAIN LEVEL 1-3 OR FEVER; Start at 02:00 Acetaminophen/ Hydrocodone Bitart ([place] (5/325)) 1 tab Q6H PRN PO MODERATE PAIN LEVEL 4-6 Last administered on 11/16/16 11:27; Admin Dose 1 TAB; Start 11/09/16 at 02:00 Acetaminophen/ Hydrocodone Bitart 2 tab 2 tab Q6H PRN PO SEVERE PAIN LEVEL 7- 10 Last administered on 11/18/16 08:04; Admin Dose 2 TAB; Start 11/09/16 at 02: 00 Sodium Chloride (NS) 250 ml @ 250 mls/hr PRN PRN IV SBP <80 Last administered on 11/11/16 00:52; Admin Dose 250 MLS/HR; Start 11/10/16 at 17:30 Lorazepam (Ativan) 1 mg Q4H PRN IV ANXIETY Last administered on 11/14/16 23:32 ; Admin Dose 1 MG; Start 11/14/16 at 23:30 Al Hydrox/Mg Hydrox/Simethicone (Mag-Al Plus) 30 ml Q6H PRN PO GASTROINTESTINAL UPSET Last administered on 11/16/16 21:15; Admin Dose 30 ML; Start 11/16/16 at 21:30 Diagnostic Test (Pha) 1 ea 1 ea 02 XX Last administered on 11/21/16 01:26; Admin Dose 1 EA; Start 11/18/16 at 02:00 Phenylephrine HCl/ Dextrose ([place]-Syneph/D5W) 500 ml @ 37.5 mls/hr TITRATE IV Last administered on 11/21/16 01:10; Admin Dose 22.5 MLS/HR; Start 11/18/16 at 06:15 Hydromorphone HCl (Dilaudid) 1 mg Q2HWA PRN IV PAIN Last administered on 03:55; Admin Dose 1 MG; Start 11/18/16 at 13:30 Ondansetron HCl 4 mg 4 mg Q6H PRN IV NAUSEA AND/OR VOMITING; Start 11/18/16 at 14:00 Norepinephrine/ Dextrose (Levophed/D5W) 500 ml @ 1.87 mls/hr TITRATE IV ; Start 11/18/16 at 15:00 Pantoprazole 40 mg 40 mg BID@06,18 IV Last administered on 11/22/16 06:04; Admin Dose 40 MG; Start 11/20/16 at 18:00 Metronidazole 100 ml @ 100 mls/hr Q8 IVPB Last administered on 11/22/16 06:04 ; Admin Dose 100 MLS/HR; Start 11/20/16 at 22:00 Piperacillin Sod/ Tazobactam Sod (Zosyn 3.375gm/ 100 ml (Pmx)) 100 ml @ 200 mls /hr Q6 IVPB Last administered on 11/22/16 06:04; Admin Dose 200 MLS/HR; Start 11/21/16 at 00:00 Octreotide Acetate 75 mcg 75 mcg TID SC Last administered on 11/21/16 21:19; Admin Dose 75 MCG; Start 11/21/16 at 09:00 Potassium Chloride/Dextrose/ Sod Cl (D5-NS + KCl 20 Meq) 1,000 ml @ 150 mls/hr Q6H40M IV Last administered on 11/22/16 06:04; Admin Dose 150 MLS/HR; Start at 10:00 Morphine Sulfate (morphine) 2 mg Q4H PRN IV pain Last administered on 17:43; Admin Dose 2 MG; Start 11/21/16 at 10:30 Phenol (Cepastat Lozenge) 1 lozenge Q1H PRN MT throat irritation Last administered on 11/21/16 12:28; Admin Dose 1 LOZENGE; Start 11/21/16 at 10:30 Miscellaneous Information 1 ea NOTE XX ; Start 11/21/16 at 12:00 Glucose (Glutose) 15 gm Q15M PRN PO DECREASED GLUCOSE; Start 11/21/16 at 12:00 Glucose (Glutose) 22.5 gm Q15M PRN PO DECREASED GLUCOSE; Start 11/21/16 at 12: 00 Dextrose (D50w Syringe) 25 ml Q15M PRN IV DECREASED GLUCOSE Last administered on 11/21/16 11:45; Admin Dose 25 ML; Start 11/21/16 at 12:00 Dextrose (D50w Syringe) 50 ml Q15M PRN IV DECREASED GLUCOSE; Start 11/21/16 at 12:00 Glucagon (Glucagen) 1 mg Q15M PRN IM DECREASED GLUCOSE; Start 11/21/16 at 12:00 Glucose (Glutose) 15 gm Q15M PRN BUCCAL DECREASED GLUCOSE; Start 11/21/16 at 12 :00 Furosemide (Lasix) 20 mg DAILY IV Last administered on 11/21/16 13:09; Admin Dose 20 MG; Start 11/21/16 at 12:30 DILLON MARTÍNEZ MD Nov 22, 2016 08:23
[2016-11-22] MEDS: FUROSEMIDE 20 MG INJ IV SCH (08:41)
[2016-11-22] MEDS: OCTREOTIDE 100 MCG INJ SC SCH ×3 (08:48→20:45)
[2016-11-22] MEDS ORDERED: SOD CHLORIDE 0.9% 250 ML IV* ONE (10:10)
[2016-11-22] MEDS ORDERED: MAGNESIUM SULFATE 2 GM/50 ML 50 ML IVPB ONE (11:00)
--- NOTE | 2016-11-22 11:20 | PN ---
Date/Time of Note Date/Time of Note DATE: 11/22/16 TIME: 11:05 Assessment/Plan VTE Prophylaxis VTE Prophylaxis Intervention: SCD's Lines/Catheters IV [facility] Type [facility]from [facility] Line Urinary Cath still in place: Yes Reason Cath still needed: terminal illness/intractable pain Assessment/Plan Assessment/Plan 1. Newly diagnosed Metastatic Cancer, most likely of Ovarian origin, Stage IIIc - s/p Extended hysterectomy with bilateral salpingoophorectomy, Bilateral ureteral dissection with repositioning, Splenectomy with distal pancreatectomy, Omentectomy with cytoreduction, Pelvic and aortic lymph node dissection and Diaphragm stripping - post-op care per surgery. Oncology is also following. 2. s/p shock likely septic with leucocytosis, but normal lactic acid: probably from PNA - off pressor now - CXR from yesterday with worsening left lung. cont abx - so far cultures have been negative. 3. Malignant Ascites - s/p paracentesis 4. s/p Vent dependent Resp Failure - s/p successful Extubation - mgmt per pulmonary 5. Diuretic induced renal insufficiency: resolved 5. Mild Pancreatitis: resolved 6. Hx of Hypertension: issue have been Hypotension from shock. Now BP stable off pressor 7. Normocytic Anemia - monitor H/H and transfuse as needed. PROPHYLAXIS: SCDs/ PPI Total critical time: 40mins Exam/Review of Systems Vital Signs Vitals Vital Signs Date Time Temp Pulse Resp B/P Pulse Ox O2 Delivery O2 Flow Rate FiO2 11/22/16 09:00 76 11 95/56 99 Nasal Cannula 11/22/16 08:25 1.0 11/22/16 04:00 96.6 11/18/16 20:00 27 Intake and Output 11/21/16 11/21/16 11/22/16 15:00 23:00 07:00 Intake Total 722.22 ml 1526.86 ml 1029.99 ml Output Total 2000 ml 1490 ml 1285 ml Balance -1277.78 ml 36.86 ml -255.01 ml Exam Constitutional: other (No acute distress. appears weak) Head: atraumatic, normocephalic Eyes: PERRL Respiratory: diminished breath sounds Cardiovascular: nl pulses, regular rate and rhythm Gastrointestinal: other (surgical site covered. Draining tube in place.) Extremities: edema Results Result Diagram: 11/22/16 0450 11/22/16 0450 Results 24 hrs Laboratory Tests Test 11/21/16 11:40 11/21/16 11:44 11/21/16 12:05 11/21/16 12:20 Bedside Glucose 58 L 61 L 115 101 Test 11/21/16 18:00 11/21/16 21:14 11/22/16 04:50 11/22/16 08:15 Bedside Glucose 133 121 120 White Blood Count 11.9 #H Red Blood Count 3.16 L Hemoglobin 8.9 L Hematocrit 28.5 L Mean Corpuscular Volume 90.2 Mean Corpuscular Hemoglobin 28.2 L Mean Corpuscular Hemoglobin Concent 31.2 L Red Cell Distribution Width 16.6 H Platelet Count 180 Mean Platelet Volume 10.4 Neutrophils % 68.9 Lymphocytes % 9.8 L Monocytes % 14.9 H Eosinophils % 5.4 Basophils % 0.6 Nucleated Red Blood Cells % 0.0 Neutrophils # 8.2 H Lymphocytes # 1.2 Monocytes # 1.8 H Eosinophils # 0.7 H Basophils # 0.1 Nucleated Red Blood Cells # 0.0 Sodium Level 137 Potassium Level 3.9 Chloride Level 106 Carbon Dioxide Level 30 Anion Gap 5 L Blood Urea Nitrogen 4 L Creatinine 0.60 Glucose Level 113 Calcium Level 7.3 L Magnesium Level 1.6 L Total Bilirubin 0.8 Direct Bilirubin 0.00 Indirect Bilirubin 0.8 Aspartate Amino Transf (AST/SGOT) 14 L Alanine Aminotransferase (ALT/SGPT) 25 Alkaline Phosphatase 57 Total Protein 4.0 L Albumin 1.9 L Globulin 2.10 Albumin/Globulin Ratio 0.90 Medications Medications Current Medications Ondansetron HCl (Zofran Tab) 4 mg Q6H PRN PO NAUSEA AND/OR VOMITING Last administered on 11/18/16 08:09; Admin Dose 4 MG; Start 11/09/16 at 02:00 Metoclopramide HCl (Reglan) 10 mg Q6H PRN IV NAUSEA AND/OR VOMITING Last administered on 11/16/16 21:15; Admin Dose 10 MG; Start 11/09/16 at 02:00 Acetaminophen (Tylenol Tab) 650 mg Q6H PRN PO PAIN LEVEL 1-3 OR FEVER; Start at 02:00 Acetaminophen/ Hydrocodone Bitart ([place] (5/325)) 1 tab Q6H PRN PO MODERATE PAIN LEVEL 4-6 Last administered on 11/16/16 11:27; Admin Dose 1 TAB; Start 11/09/16 at 02:00 Acetaminophen/ Hydrocodone Bitart 2 tab 2 tab Q6H PRN PO SEVERE PAIN LEVEL 7- 10 Last administered on 11/18/16 08:04; Admin Dose 2 TAB; Start 11/09/16 at 02: 00 Sodium Chloride (NS) 250 ml @ 250 mls/hr PRN PRN IV SBP <80 Last administered on 11/11/16 00:52; Admin Dose 250 MLS/HR; Start 11/10/16 at 17:30 Lorazepam (Ativan) 1 mg Q4H PRN IV ANXIETY Last administered on 11/14/16 23:32 ; Admin Dose 1 MG; Start 11/14/16 at 23:30 Al Hydrox/Mg Hydrox/Simethicone (Mag-Al Plus) 30 ml Q6H PRN PO GASTROINTESTINAL UPSET Last administered on 11/16/16 21:15; Admin Dose 30 ML; Start 11/16/16 at 21:30 Diagnostic Test (Pha) 1 ea 1 ea 02 XX Last administered on 11/21/16 01:26; Admin Dose 1 EA; Start 11/18/16 at 02:00 Phenylephrine HCl/ Dextrose ([place]-Syneph/D5W) 500 ml @ 37.5 mls/hr TITRATE IV Last administered on 11/21/16 01:10; Admin Dose 22.5 MLS/HR; Start 11/18/16 at 06:15 Hydromorphone HCl (Dilaudid) 1 mg Q2HWA PRN IV PAIN Last administered on 08:31; Admin Dose 1 MG; Start 11/18/16 at 13:30 Ondansetron HCl 4 mg 4 mg Q6H PRN IV NAUSEA AND/OR VOMITING; Start 11/18/16 at 14:00 Norepinephrine/ Dextrose (Levophed/D5W) 500 ml @ 1.87 mls/hr TITRATE IV ; Start 11/18/16 at 15:00 Pantoprazole 40 mg 40 mg BID@06,18 IV Last administered on 11/22/16 06:04; Admin Dose 40 MG; Start 11/20/16 at 18:00 Metronidazole 100 ml @ 100 mls/hr Q8 IVPB Last administered on 11/22/16 06:04 ; Admin Dose 100 MLS/HR; Start 11/20/16 at 22:00 Piperacillin Sod/ Tazobactam Sod (Zosyn 3.375gm/ 100 ml (Pmx)) 100 ml @ 200 mls /hr Q6 IVPB Last administered on 11/22/16 06:04; Admin Dose 200 MLS/HR; Start 11/21/16 at 00:00 Octreotide Acetate 75 mcg 75 mcg TID SC Last administered on 11/22/16 08:48; Admin Dose 75 MCG; Start 11/21/16 at 09:00 Potassium Chloride/Dextrose/ Sod Cl (D5-NS + KCl 20 Meq) 1,000 ml @ 125 mls/hr Q8H IV Last administered on 11/22/16 06:04; Admin Dose 150 MLS/HR; Start 11/21 at 10:00 Morphine Sulfate (morphine) 2 mg Q4H PRN IV pain Last administered on 17:43; Admin Dose 2 MG; Start 11/21/16 at 10:30 Phenol (Cepastat Lozenge) 1 lozenge Q1H PRN MT throat irritation Last administered on 11/21/16 12:28; Admin Dose 1 LOZENGE; Start 11/21/16 at 10:30 Miscellaneous Information 1 ea NOTE XX ; Start 11/21/16 at 12:00 Glucose (Glutose) 15 gm Q15M PRN PO DECREASED GLUCOSE; Start 11/21/16 at 12:00 Glucose (Glutose) 22.5 gm Q15M PRN PO DECREASED GLUCOSE; Start 11/21/16 at 12: 00 Dextrose (D50w Syringe) 25 ml Q15M PRN IV DECREASED GLUCOSE Last administered on 11/21/16 11:45; Admin Dose 25 ML; Start 11/21/16 at 12:00 Dextrose (D50w Syringe) 50 ml Q15M PRN IV DECREASED GLUCOSE; Start 11/21/16 at 12:00 Glucagon (Glucagen) 1 mg Q15M PRN IM DECREASED GLUCOSE; Start 11/21/16 at 12:00 Glucose (Glutose) 15 gm Q15M PRN BUCCAL DECREASED GLUCOSE; Start 11/21/16 at 12 :00 Furosemide 20 mg 20 mg DAILY IV Last administered on 4/19/17at 08:41; Admin Dose 20 MG; Start 11/21/16 at 12:30 Magnesium Sulfate (Magnesium Sulfate 2 Gm/50 ml) 50 ml @ 25 mls/hr ONCE ONCE IVPB ; Start 11/22/16 at 11:00; Stop 11/22/16 at 12:59 MARIANN MOBLEY MD Nov 22, 2016 11:15
--- NOTE | 2016-11-22 13:57 | CONS ---
Date/Time of Note Date/Time of Note DATE: 11/22/16 TIME: 13:47 Assessment/Plan Assessment/Plan Chief Complaint/Hosp Course 56 yo female with malignant ascites who has since been diagnosed with FIGO stage III ovarian cancer. Surg path reveals an 8.5 cm tumor in right ovary, 1.2 cm tumor in L ovary and 1.5 cm tumor in L fallopian tube. The disease noted to involve the omentum, spleen, uterus, cervix and diaphragm. # ovarian ca, papillary serous , FIGO stage IIIc -once patient is ambulating and tolerating her diet, will need to start chemotherapy in house -will plant to start Carboplatin/ Taxol once patient is cleared by Dr. Garcia. Will likely given in a dose dense fashion. # Anemia - post op and secondary to iron deficiency -transfusion parameter per Dr. Garcia -can given 3 days of IV iron to help maintain her Hg Approximately 40 min were spent at patient's bedside and in coordination of her care Problems: Consultation Date/Type/Reason Admit Date/Time Nov 09, 2016 at 00:55 Initial Consult Date 11/17/16 Type of Consultation: Oncology Reason for Consultation ovarian cancer Referring Provider: JYOTHI BENAVIDES 24 HR Interval Summary Free Text/Dictation pt is recovering well from surgery. Hg did drop slightly. to receive blood transfusion today Exam/Review of Systems Vital Signs Vitals Vital Signs Date Time Temp Pulse Resp B/P Pulse Ox O2 Delivery O2 Flow Rate FiO2 11/22/16 09:00 76 11 95/56 99 Nasal Cannula 11/22/16 08:25 1.0 11/22/16 04:00 96.6 11/18/16 20:00 27 Intake and Output 11/21/16 11/21/16 11/22/16 15:00 23:00 07:00 Intake Total 722.22 ml 1526.86 ml 1029.99 ml Output Total 2000 ml 1490 ml 1335 ml Balance -1277.78 ml 36.86 ml -305.01 ml Exam Constitutional: alert, oriented Psych: no complaints Head: atraumatic, normocephalic Eyes: nl conjunctiva ENMT: nl external ears & nose Neck: non-tender, supple Respiratory: clear to auscultation, normal air movement Cardiovascular: regular rate and rhythm Gastrointestinal: soft, surgical scars, tender Musculoskeletal: nl extremities to inspection, nl gait and stance Results Result Diagram: 11/22/16 0450 11/22/16 0450 Results 24 hrs Laboratory Tests Test 11/21/16 18:00 11/21/16 21:14 11/22/16 04:50 11/22/16 08:15 Bedside Glucose 133 121 120 White Blood Count 11.9 #H Red Blood Count 3.16 L Hemoglobin 8.9 L Hematocrit 28.5 L Mean Corpuscular Volume 90.2 Mean Corpuscular Hemoglobin 28.2 L Mean Corpuscular Hemoglobin Concent 31.2 L Red Cell Distribution Width 16.6 H Platelet Count 180 Mean Platelet Volume 10.4 Neutrophils % 68.9 Lymphocytes % 9.8 L Monocytes % 14.9 H Eosinophils % 5.4 Basophils % 0.6 Nucleated Red Blood Cells % 0.0 Neutrophils # 8.2 H Lymphocytes # 1.2 Monocytes # 1.8 H Eosinophils # 0.7 H Basophils # 0.1 Nucleated Red Blood Cells # 0.0 Sodium Level 137 Potassium Level 3.9 Chloride Level 106 Carbon Dioxide Level 30 Anion Gap 5 L Blood Urea Nitrogen 4 L Creatinine 0.60 Glucose Level 113 Calcium Level 7.3 L Magnesium Level 1.6 L Total Bilirubin 0.8 Direct Bilirubin 0.00 Indirect Bilirubin 0.8 Aspartate Amino Transf (AST/SGOT) 14 L Alanine Aminotransferase (ALT/SGPT) 25 Alkaline Phosphatase 57 Total Protein 4.0 L Albumin 1.9 L Globulin 2.10 Albumin/Globulin Ratio 0.90 Test 11/22/16 12:49 Bedside Glucose 135 Medications Medications Current Medications Ondansetron HCl (Zofran Tab) 4 mg Q6H PRN PO NAUSEA AND/OR VOMITING Last administered on 11/18/16 08:09; Admin Dose 4 MG; Start 11/09/16 at 02:00 Metoclopramide HCl (Reglan) 10 mg Q6H PRN IV NAUSEA AND/OR VOMITING Last administered on 11/16/16 21:15; Admin Dose 10 MG; Start 11/09/16 at 02:00 Acetaminophen (Tylenol Tab) 650 mg Q6H PRN PO PAIN LEVEL 1-3 OR FEVER; Start at 02:00 Acetaminophen/ Hydrocodone Bitart ([place] (5/325)) 1 tab Q6H PRN PO MODERATE PAIN LEVEL 4-6 Last administered on 11/16/16 11:27; Admin Dose 1 TAB; Start 11/09/16 at 02:00 Acetaminophen/ Hydrocodone Bitart 2 tab 2 tab Q6H PRN PO SEVERE PAIN LEVEL 7- 10 Last administered on 11/18/16 08:04; Admin Dose 2 TAB; Start 11/09/16 at 02: 00 Sodium Chloride (NS) 250 ml @ 250 mls/hr PRN PRN IV SBP <80 Last administered on 11/11/16 00:52; Admin Dose 250 MLS/HR; Start 11/10/16 at 17:30 Lorazepam (Ativan) 1 mg Q4H PRN IV ANXIETY Last administered on 11/14/16 23:32 ; Admin Dose 1 MG; Start 11/14/16 at 23:30 Al Hydrox/Mg Hydrox/Simethicone (Mag-Al Plus) 30 ml Q6H PRN PO GASTROINTESTINAL UPSET Last administered on 11/16/16 21:15; Admin Dose 30 ML; Start 11/16/16 at 21:30 Diagnostic Test (Pha) (Accu-Chek) 1 ea 02 XX Last administered on 11/21/16 01: 26; Admin Dose 1 EA; Start 11/18/16 at 02:00 Hydromorphone HCl (Dilaudid) 1 mg Q2HWA PRN IV PAIN Last administered on 08:31; Admin Dose 1 MG; Start 11/18/16 at 13:30 Ondansetron HCl (Zofran Inj) 4 mg Q6H PRN IV NAUSEA AND/OR VOMITING; Start at 14:00 Pantoprazole 40 mg 40 mg BID@06,18 IV Last administered on 11/22/16 06:04; Admin Dose 40 MG; Start 11/20/16 at 18:00 Metronidazole 100 ml @ 100 mls/hr Q8 IVPB Last administered on 11/22/16 06:04 ; Admin Dose 100 MLS/HR; Start 11/20/16 at 22:00 Piperacillin Sod/ Tazobactam Sod (Zosyn 3.375gm/ 100 ml (Pmx)) 100 ml @ 200 mls /hr Q6 IVPB Last administered on 11/22/16 12:50; Admin Dose 200 MLS/HR; Start 11/21/16 at 00:00 Octreotide Acetate 75 mcg 75 mcg TID SC Last administered on 11/22/16 13:12; Admin Dose 75 MCG; Start 11/21/16 at 09:00 Potassium Chloride/Dextrose/ Sod Cl (D5-NS + KCl 20 Meq) 1,000 ml @ 125 mls/hr Q8H IV Last administered on 11/22/16 12:51; Admin Dose 125 MLS/HR; Start 11/21 at 10:00 Morphine Sulfate (morphine) 2 mg Q4H PRN IV pain Last administered on 17:43; Admin Dose 2 MG; Start 11/21/16 at 10:30 Phenol (Cepastat Lozenge) 1 lozenge Q1H PRN MT throat irritation Last administered on 11/21/16 12:28; Admin Dose 1 LOZENGE; Start 11/21/16 at 10:30 Miscellaneous Information 1 ea NOTE XX ; Start 11/21/16 at 12:00 Glucose (Glutose) 15 gm Q15M PRN PO DECREASED GLUCOSE; Start 11/21/16 at 12:00 Glucose (Glutose) 22.5 gm Q15M PRN PO DECREASED GLUCOSE; Start 11/21/16 at 12: 00 Dextrose (D50w Syringe) 25 ml Q15M PRN IV DECREASED GLUCOSE Last administered on 11/21/16 11:45; Admin Dose 25 ML; Start 11/21/16 at 12:00 Dextrose (D50w Syringe) 50 ml Q15M PRN IV DECREASED GLUCOSE; Start 11/21/16 at 12:00 Glucagon (Glucagen) 1 mg Q15M PRN IM DECREASED GLUCOSE; Start 11/21/16 at 12:00 Glucose (Glutose) 15 gm Q15M PRN BUCCAL DECREASED GLUCOSE; Start 11/21/16 at 12 :00 Furosemide (Lasix) 20 mg DAILY IV Last administered on 11/22/16 08:41; Admin Dose 20 MG; Start 11/21/16 at 12:30 FLORINDA COATES M.D. Nov 22, 2016 13:57
[2016-11-22] MEDS: LORAZEPAM 2 MG INJ IV PRN (23:11)
[2016-11-23] MEDS: ALBUTEROL 18 GM INHALER INH SCH ×4 (01:34→20:20)
[2016-11-23] MEDS: ACCU-CHEK XX SCH (01:34)
[2016-11-23] MEDS: ONDANSETRON 4 MG INJ IV PRN (03:56)
[2016-11-23] MEDS: morphine 2 MG INJ IV PRN (03:57)
[2016-11-23 05:00] VITALS: BP 111/72; PULSE 78; RESP 18
[2016-11-23] MEDS: PANTOPRAZOLE 40 MG INJ IV SCH ×2 (05:02→18:35)
[2016-11-23] MEDS: D5-NS + KCL 20 MEQ 1,000 ML IV SCH ×3 (05:02→18:35)
[2016-11-23] MEDS: metroNIDAZOLE 500 MG/NS (PMX) 100 ML IVPB SCH ×3 (05:02→21:01)
[2016-11-23] MEDS: PIPER-TAZO 3.375 GM IV (PMX) 100 ML IVPB SCH ×3 (06:10→18:34)
[2016-11-23 07:12] LABS: ADD SCAN DIFF NO
[2016-11-23 07:16] LABS: ABNORMAL IP MESSAGE 1; BASOPHIL # 0.1 10^3/ul (0.0-0.1); BASOPHILS % 0.7 % (0.0-2.0); EOSINOPHILS # 0.7 10^3/ul (0.0-0.5); EOSINOPHILS % 5.5 % (0.0-7.0); HEMATOCRIT 32.7 % (37.0-47.0); HEMOGLOBIN 10.7 g/dl (12.0-16.0); LYMPHOCYTES # 1.3 10^3/ul (0.8-2.9); MEAN CORPUSCULAR HEMOGLOBIN 29.2 pg (29.0-33.0); MEAN CORPUSCULAR HGB CONC 32.7 g/dl (32.0-37.0); MEAN CORPUSCULAR VOLUME 89.3 fl (82.0-101.0); MEAN PLATELET VOLUME 10.6 fl (7.4-10.4); MONOCYTE # 1.9 10^3/ul (0.3-0.9); MONOCYTES % 15.4 % (0.0-11.0); NEUTROPHIL # 8.2 10^3/ul (1.6-7.5); NEUTROPHILS % 66.6 % (39.0-77.0); NUCLEATED RED BLOOD CELLS% 0.2 /100WBC (0.0-0.0); PLATELET COUNT 262 10^3/UL (140-415); RED BLOOD COUNT 3.66 10^6/ul (4.20-5.40); WHITE BLOOD COUNT 12.2 10^3/ul (4.8-10.8)
[2016-11-23 07:38] LABS: ALBUMIN 1.9 g/dl (3.3-4.9); POTASSIUM 3.7 mmol/L (3.5-5.1)
[2016-11-23 07:40] LABS: CREATININE 0.6 mg/dl (0.44-1.00)
[2016-11-23 07:41] LABS: ALBUMIN/GLOBULIN RATIO 0.9; BILIRUBIN,INDIRECT 0.9 mg/dl (0-1.1); BILIRUBIN,TOTAL 0.9 mg/dl (0.2-1.3)
[2016-11-23 08:20] VITALS: BP 115/69; RESP 19
[2016-11-23] MEDS: OCTREOTIDE 100 MCG INJ SC SCH ×3 (08:59→21:21)
[2016-11-23] MEDS: FUROSEMIDE 20 MG INJ IV SCH (09:00)
[2016-11-23] MEDS: INSULIN ASPART [NOVOLOG] 3 ML PEN SC SCH ×4 (09:04→20:20)
[2016-11-23] MEDS: HYDROmorphONE 1 MG/ML SYG IV PRN ×3 (09:12→21:35)
--- NOTE | 2016-11-23 11:07 | CONS ---
Date/Time of Note Date/Time of Note DATE: 11/23/16 TIME: 11:05 Assessment/Plan Assessment/Plan Chief Complaint/Hosp Course 56 yo female with malignant ascites who has since been diagnosed with FIGO stage III ovarian cancer. Surg path reveals an 8.5 cm tumor in right ovary, 1.2 cm tumor in L ovary and 1.5 cm tumor in L fallopian tube. The disease noted to involve the omentum, spleen, uterus, cervix and diaphragm. # ovarian ca, papillary serous , FIGO stage IIIc -once patient is ambulating and tolerating her diet, will need to start chemotherapy in house -will plant to start Carboplatin/ Taxol once patient is cleared by Dr. Garcia. Will likely given in a dose dense fashion. # Anemia - post op and secondary to iron deficiency -transfusion parameter per Dr. Garcia -can given 3 days of IV iron to help maintain her Hg Approximately 40 min were spent at patient's bedside and in coordination of her care Problems: Consultation Date/Type/Reason Admit Date/Time Nov 09, 2016 at 00:55 Initial Consult Date 11/17/16 Type of Consultation: Oncology Reason for Consultation ovarian cancer Referring Provider: JYOTHI BENAVIDES 24 HR Interval Summary Free Text/Dictation pt is still not ambulating. NGT in place Exam/Review of Systems Vital Signs Vitals Vital Signs Date Time Temp Pulse Resp B/P Pulse Ox O2 Delivery O2 Flow Rate FiO2 11/23/16 08:20 97.6 81 19 115/69 99 11/23/16 05:00 Nasal Cannula 2.0 Intake and Output 11/22/16 11/22/16 11/23/16 15:00 23:00 07:00 Intake Total 1000 ml 450 ml 1300 ml Output Total 1015 ml 735 ml Balance -15 ml 450 ml 565 ml Exam Constitutional: alert, frail, oriented Psych: anxiety, depression Head: normocephalic Eyes: nl conjunctiva ENMT: other (NGT in place) Neck: non-tender, supple Respiratory: clear to auscultation, normal air movement Cardiovascular: regular rate and rhythm Gastrointestinal: surgical scars, tender Musculoskeletal: swelling Results Result Diagram: 11/23/16 0710 11/23/16 0710 Results 24 hrs Laboratory Tests Test 11/22/16 12:49 11/22/16 17:41 11/22/16 20:47 11/23/16 01:32 Bedside Glucose 135 140 142 117 Test 11/23/16 07:10 11/23/16 08:37 White Blood Count 12.2 H Red Blood Count 3.66 L Hemoglobin 10.7 #L Hematocrit 32.7 L Mean Corpuscular Volume 89.3 Mean Corpuscular Hemoglobin 29.2 Mean Corpuscular Hemoglobin Concent 32.7 Red Cell Distribution Width 16.0 H Platelet Count 262 # Mean Platelet Volume 10.6 H Neutrophils % 66.6 Lymphocytes % 11.0 L Monocytes % 15.4 H Eosinophils % 5.5 Basophils % 0.7 Nucleated Red Blood Cells % 0.2 H Neutrophils # 8.2 H Lymphocytes # 1.3 Monocytes # 1.9 H Eosinophils # 0.7 H Basophils # 0.1 Nucleated Red Blood Cells # 0.0 Sodium Level 138 Potassium Level 3.7 Chloride Level 105 Carbon Dioxide Level 28 Anion Gap 9 Blood Urea Nitrogen 3 L Creatinine 0.60 Glucose Level 101 Calcium Level 7.0 L Total Bilirubin 0.9 Direct Bilirubin 0.00 Indirect Bilirubin 0.9 Aspartate Amino Transf (AST/SGOT) 17 Alanine Aminotransferase (ALT/SGPT) 22 Alkaline Phosphatase 48 Total Protein 4.0 L Albumin 1.9 L Globulin 2.10 Albumin/Globulin Ratio 0.90 Bedside Glucose 141 Medications Medications Current Medications Ondansetron HCl (Zofran Tab) 4 mg Q6H PRN PO NAUSEA AND/OR VOMITING Last administered on 11/18/16 08:09; Admin Dose 4 MG; Start 11/09/16 at 02:00 Metoclopramide HCl (Reglan) 10 mg Q6H PRN IV NAUSEA AND/OR VOMITING Last administered on 11/16/16 21:15; Admin Dose 10 MG; Start 11/09/16 at 02:00 Acetaminophen (Tylenol Tab) 650 mg Q6H PRN PO PAIN LEVEL 1-3 OR FEVER; Start at 02:00 Acetaminophen/ Hydrocodone Bitart ([place] (5/325)) 1 tab Q6H PRN PO MODERATE PAIN LEVEL 4-6 Last administered on 11/16/16 11:27; Admin Dose 1 TAB; Start 11/09/16 at 02:00 Acetaminophen/ Hydrocodone Bitart 2 tab 2 tab Q6H PRN PO SEVERE PAIN LEVEL 7- 10 Last administered on 11/18/16 08:04; Admin Dose 2 TAB; Start 11/09/16 at 02: 00 Sodium Chloride (NS) 250 ml @ 250 mls/hr PRN PRN IV SBP <80 Last administered on 11/11/16 00:52; Admin Dose 250 MLS/HR; Start 11/10/16 at 17:30 Lorazepam (Ativan) 1 mg Q4H PRN IV ANXIETY Last administered on 11/22/16 23:11 ; Admin Dose 0.5 MG; Start 11/14/16 at 23:30 Al Hydrox/Mg Hydrox/Simethicone (Mag-Al Plus) 30 ml Q6H PRN PO GASTROINTESTINAL UPSET Last administered on 11/16/16 21:15; Admin Dose 30 ML; Start 11/16/16 at 21:30 Diagnostic Test (Pha) (Accu-Chek) 1 ea 02 XX Last administered on 11/21/16 01: 26; Admin Dose 1 EA; Start 11/18/16 at 02:00 Hydromorphone HCl (Dilaudid) 1 mg Q2HWA PRN IV PAIN Last administered on 09:12; Admin Dose 1 MG; Start 11/18/16 at 13:30 Ondansetron HCl (Zofran Inj) 4 mg Q6H PRN IV NAUSEA AND/OR VOMITING Last administered on 11/23/16 03:56; Admin Dose 4 MG; Start 11/18/16 at 14:00 Pantoprazole 40 mg 40 mg BID@06,18 IV Last administered on 11/23/16 05:02; Admin Dose 40 MG; Start 11/20/16 at 18:00 Metronidazole 100 ml @ 100 mls/hr Q8 IVPB Last administered on 11/23/16 05:02 ; Admin Dose 100 MLS/HR; Start 11/20/16 at 22:00 Piperacillin Sod/ Tazobactam Sod 100 ml @ 200 mls/hr Q6 IVPB Last administered on 11/23/16 06:10; Admin Dose 200 MLS/HR; Start 11/21/16 at 00:00 Potassium Chloride/Dextrose/ Sod Cl (D5-NS + KCl 20 Meq) 1,000 ml @ 125 mls/hr Q8H IV Last administered on 11/23/16 05:02; Admin Dose 125 MLS/HR; Start 11/21 at 10:00 Morphine Sulfate (morphine) 2 mg Q4H PRN IV pain Last administered on 03:57; Admin Dose 2 MG; Start 11/21/16 at 10:30 Phenol (Cepastat Lozenge) 1 lozenge Q1H PRN MT throat irritation Last administered on 11/21/16 12:28; Admin Dose 1 LOZENGE; Start 11/21/16 at 10:30 Miscellaneous Information 1 ea NOTE XX ; Start 11/21/16 at 12:00 Glucose (Glutose) 15 gm Q15M PRN PO DECREASED GLUCOSE; Start 11/21/16 at 12:00 Glucose (Glutose) 22.5 gm Q15M PRN PO DECREASED GLUCOSE; Start 11/21/16 at 12: 00 Dextrose (D50w Syringe) 25 ml Q15M PRN IV DECREASED GLUCOSE Last administered on 11/21/16 11:45; Admin Dose 25 ML; Start 11/21/16 at 12:00 Dextrose (D50w Syringe) 50 ml Q15M PRN IV DECREASED GLUCOSE; Start 11/21/16 at 12:00 Glucagon (Glucagen) 1 mg Q15M PRN IM DECREASED GLUCOSE; Start 11/21/16 at 12:00 Glucose (Glutose) 15 gm Q15M PRN BUCCAL DECREASED GLUCOSE; Start 11/21/16 at 12 :00 Furosemide (Lasix) 20 mg DAILY IV Last administered on 11/23/16 09:00; Admin Dose 20 MG; Start 11/21/16 at 12:30 Octreotide Acetate (Sandostatin) 100 mcg TID SC Last administered on 11/23/16 08:59; Admin Dose 100 MCG; Start 11/23/16 at 09:00 FLORINDA COATES M.D. Nov 23, 2016 11:07
--- NOTE | 2016-11-23 14:13 | PN ---
Date/Time of Note Date/Time of Note DATE: 11/23/16 TIME: 13:57 Assessment/Plan VTE Prophylaxis VTE Prophylaxis Intervention: SCD's Lines/Catheters IV Catheter Type (from Nrs): Central Line Central line still needed: Yes Urinary Cath still in place: Yes Reason Cath still needed: terminal illness/intractable pain Assessment/Plan Assessment/Plan 1. Newly diagnosed Metastatic Cancer, most likely of Ovarian origin, Stage IIIc - s/p Extended hysterectomy with bilateral salpingo-oophorectomy, Bilateral ureteral dissection with repositioning, Splenectomy with distal pancreatectomy, Omentectomy with cytoreduction, Pelvic and aortic lymph node dissection and Diaphragm stripping - post-op care per surgery. Oncology is also following. plan for chemo in-house. 2. s/p shock likely septic with leucocytosis, but normal lactic acid: probably from PNA - off pressor now - CXR from yesterday with worsening left lung. cont abx - so far cultures have been negative. 3. Malignant Ascites - s/p paracentesis 4. s/p Vent dependent Resp Failure - s/p successful Extubation - mgmt per pulmonary 5. Diuretic induced renal insufficiency: resolved 5. Mild Pancreatitis: resolved 6. Hx of Hypertension: issue have been Hypotension from shock. Now BP stable off pressor 7. Normocytic Anemia - monitor H/H and transfuse as needed. PROPHYLAXIS: SCDs/ PPI Subjective 24 Hr Interval Summary Free Text/Dictation no acute issues overnight Exam/Review of Systems Vital Signs Vitals Vital Signs Date Time Temp Pulse Resp B/P Pulse Ox O2 Delivery O2 Flow Rate FiO2 11/23/16 08:20 97.6 81 19 115/69 99 11/23/16 05:00 Nasal Cannula 2.0 Intake and Output 11/22/16 11/22/16 11/23/16 15:00 23:00 07:00 Intake Total 1000 ml 450 ml 1300 ml Output Total 1015 ml 735 ml Balance -15 ml 450 ml 565 ml Exam Constitutional: No acute distress. appears weak Head: atraumatic, normocephalic Eyes: PERRL Respiratory: diminished breath sounds Cardiovascular: pulses, regular rate and rhythm Gastrointestinal: surgical site covered. Draining tube in place. Extremities: edema Results Result Diagram: 11/23/16 0710 11/23/16 0710 Results 24 hrs Laboratory Tests Test 11/22/16 17:41 11/22/16 20:47 11/23/16 01:32 11/23/16 07:10 Bedside Glucose 140 142 117 White Blood Count 12.2 H Red Blood Count 3.66 L Hemoglobin 10.7 #L Hematocrit 32.7 L Mean Corpuscular Volume 89.3 Mean Corpuscular Hemoglobin 29.2 Mean Corpuscular Hemoglobin Concent 32.7 Red Cell Distribution Width 16.0 H Platelet Count 262 # Mean Platelet Volume 10.6 H Neutrophils % 66.6 Lymphocytes % 11.0 L Monocytes % 15.4 H Eosinophils % 5.5 Basophils % 0.7 Nucleated Red Blood Cells % 0.2 H Neutrophils # 8.2 H Lymphocytes # 1.3 Monocytes # 1.9 H Eosinophils # 0.7 H Basophils # 0.1 Nucleated Red Blood Cells # 0.0 Sodium Level 138 Potassium Level 3.7 Chloride Level 105 Carbon Dioxide Level 28 Anion Gap 9 Blood Urea Nitrogen 3 L Creatinine 0.60 Glucose Level 101 Calcium Level 7.0 L Total Bilirubin 0.9 Direct Bilirubin 0.00 Indirect Bilirubin 0.9 Aspartate Amino Transf (AST/SGOT) 17 Alanine Aminotransferase (ALT/SGPT) 22 Alkaline Phosphatase 48 Total Protein 4.0 L Albumin 1.9 L Globulin 2.10 Albumin/Globulin Ratio 0.90 Test 11/23/16 08:37 11/23/16 12:39 Bedside Glucose 141 144 Medications Medications Current Medications Ondansetron HCl (Zofran Tab) 4 mg Q6H PRN PO NAUSEA AND/OR VOMITING Last administered on 11/18/16 08:09; Admin Dose 4 MG; Start 11/09/16 at 02:00 Metoclopramide HCl (Reglan) 10 mg Q6H PRN IV NAUSEA AND/OR VOMITING Last administered on 11/16/16 21:15; Admin Dose 10 MG; Start 11/09/16 at 02:00 Acetaminophen (Tylenol Tab) 650 mg Q6H PRN PO PAIN LEVEL 1-3 OR FEVER; Start at 02:00 Acetaminophen/ Hydrocodone Bitart ([place] (5/325)) 1 tab Q6H PRN PO MODERATE PAIN LEVEL 4-6 Last administered on 11/16/16 11:27; Admin Dose 1 TAB; Start 11/09/16 at 02:00 Acetaminophen/ Hydrocodone Bitart 2 tab 2 tab Q6H PRN PO SEVERE PAIN LEVEL 7- 10 Last administered on 11/18/16 08:04; Admin Dose 2 TAB; Start 11/09/16 at 02: 00 Sodium Chloride (NS) 250 ml @ 250 mls/hr PRN PRN IV SBP <80 Last administered on 11/11/16 00:52; Admin Dose 250 MLS/HR; Start 11/10/16 at 17:30 Lorazepam (Ativan) 1 mg Q4H PRN IV ANXIETY Last administered on 11/22/16 23:11 ; Admin Dose 0.5 MG; Start 11/14/16 at 23:30 Al Hydrox/Mg Hydrox/Simethicone (Mag-Al Plus) 30 ml Q6H PRN PO GASTROINTESTINAL UPSET Last administered on 11/16/16 21:15; Admin Dose 30 ML; Start 11/16/16 at 21:30 Diagnostic Test (Pha) (Accu-Chek) 1 ea 02 XX Last administered on 11/21/16 01: 26; Admin Dose 1 EA; Start 11/18/16 at 02:00 Hydromorphone HCl (Dilaudid) 1 mg Q2HWA PRN IV PAIN Last administered on 09:12; Admin Dose 1 MG; Start 11/18/16 at 13:30 Ondansetron HCl (Zofran Inj) 4 mg Q6H PRN IV NAUSEA AND/OR VOMITING Last administered on 11/23/16 03:56; Admin Dose 4 MG; Start 11/18/16 at 14:00 Pantoprazole 40 mg 40 mg BID@06,18 IV Last administered on 11/23/16 05:02; Admin Dose 40 MG; Start 11/20/16 at 18:00 Metronidazole 100 ml @ 100 mls/hr Q8 IVPB Last administered on 11/23/16 05:02 ; Admin Dose 100 MLS/HR; Start 11/20/16 at 22:00 Piperacillin Sod/ Tazobactam Sod 100 ml @ 200 mls/hr Q6 IVPB Last administered on 11/23/16 13:00; Admin Dose 200 MLS/HR; Start 11/21/16 at 00:00 Potassium Chloride/Dextrose/ Sod Cl (D5-NS + KCl 20 Meq) 1,000 ml @ 125 mls/hr Q8H IV Last administered on 11/23/16 05:02; Admin Dose 125 MLS/HR; Start 11/21 at 10:00 Morphine Sulfate (morphine) 2 mg Q4H PRN IV pain Last administered on 03:57; Admin Dose 2 MG; Start 11/21/16 at 10:30 Phenol (Cepastat Lozenge) 1 lozenge Q1H PRN MT throat irritation Last administered on 11/21/16 12:28; Admin Dose 1 LOZENGE; Start 11/21/16 at 10:30 Miscellaneous Information 1 ea NOTE XX ; Start 11/21/16 at 12:00 Glucose (Glutose) 15 gm Q15M PRN PO DECREASED GLUCOSE; Start 11/21/16 at 12:00 Glucose (Glutose) 22.5 gm Q15M PRN PO DECREASED GLUCOSE; Start 11/21/16 at 12: 00 Dextrose (D50w Syringe) 25 ml Q15M PRN IV DECREASED GLUCOSE Last administered on 11/21/16 11:45; Admin Dose 25 ML; Start 11/21/16 at 12:00 Dextrose (D50w Syringe) 50 ml Q15M PRN IV DECREASED GLUCOSE; Start 11/21/16 at 12:00 Glucagon (Glucagen) 1 mg Q15M PRN IM DECREASED GLUCOSE; Start 11/21/16 at 12:00 Glucose (Glutose) 15 gm Q15M PRN BUCCAL DECREASED GLUCOSE; Start 11/21/16 at 12 :00 Furosemide (Lasix) 20 mg DAILY IV Last administered on 11/23/16 09:00; Admin Dose 20 MG; Start 11/21/16 at 12:30 Octreotide Acetate (Sandostatin) 100 mcg TID SC Last administered on 11/23/16 08:59; Admin Dose 100 MCG; Start 11/23/16 at 09:00 MARIANN MOBLEY MD Nov 23, 2016 14:07
[2016-11-23] MEDS: CEPASTAT LOZENGE MT PRN (18:34)
[2016-11-23 19:50] VITALS: BP 111/59; RESP 20
--- NOTE | 2016-11-23 20:47 | PN ---
Date/Time of Note Date/Time of Note DATE: 11/23/16 TIME: 20:45 Assessment/Plan VTE Prophylaxis VTE Prophylaxis Intervention: SCD's Lines/Catheters IV Catheter Type (from Nrsg): Central Line Central line still needed: Yes Urinary Cath still in place: Yes Reason Cath still needed: urinary retention Assessment/Plan Chief Complaint/Hosp Course Probable ovarian cancer vs peritoneal Problems: Assessment/Plan A- improved P- TPN per pharm tomorrow and OOB more Subjective 24 Hr Interval Summary Free Text/Dictation Less pain but minimally OOB and no flatus. Constitutional: no complaints Exam/Review of Systems Vital Signs Vitals Vital Signs Date Time Temp Pulse Resp B/P Pulse Ox O2 Delivery O2 Flow Rate FiO2 11/23/16 19:50 97.8 82 20 111/59 98 11/23/16 17:50 2.0 11/23/16 09:00 Nasal Cannula Intake and Output 11/22/16 11/22/16 11/23/16 14:59 22:59 06:59 Intake Total 1125 ml 450 ml 1300 ml Output Total 1065 ml 735 ml Balance 60 ml 450 ml 565 ml Exam Respiratory: clear to auscultation, normal air movement Cardiovascular: nl pulses, regular rate and rhythm Gastrointestinal: non-tender, soft Musculoskeletal: nl extremities to inspection Extremities: normal pulses Results Result Diagram: 11/23/16 0710 11/23/16 0710 Results 24 hrs Laboratory Tests Test 11/22/16 20:47 11/23/16 01:32 11/23/16 07:10 11/23/16 08:37 Bedside Glucose 142 117 141 White Blood Count 12.2 H Red Blood Count 3.66 L Hemoglobin 10.7 #L Hematocrit 32.7 L Mean Corpuscular Volume 89.3 Mean Corpuscular Hemoglobin 29.2 Mean Corpuscular Hemoglobin Concent 32.7 Red Cell Distribution Width 16.0 H Platelet Count 262 # Mean Platelet Volume 10.6 H Neutrophils % 66.6 Lymphocytes % 11.0 L Monocytes % 15.4 H Eosinophils % 5.5 Basophils % 0.7 Nucleated Red Blood Cells % 0.2 H Neutrophils # 8.2 H Lymphocytes # 1.3 Monocytes # 1.9 H Eosinophils # 0.7 H Basophils # 0.1 Nucleated Red Blood Cells # 0.0 Sodium Level 138 Potassium Level 3.7 Chloride Level 105 Carbon Dioxide Level 28 Anion Gap 9 Blood Urea Nitrogen 3 L Creatinine 0.60 Glucose Level 101 Calcium Level 7.0 L Total Bilirubin 0.9 Direct Bilirubin 0.00 Indirect Bilirubin 0.9 Aspartate Amino Transf (AST/SGOT) 17 Alanine Aminotransferase (ALT/SGPT) 22 Alkaline Phosphatase 48 Total Protein 4.0 L Albumin 1.9 L Globulin 2.10 Albumin/Globulin Ratio 0.90 Test 11/23/16 12:39 11/23/16 17:22 11/23/16 20:11 Bedside Glucose 144 108 98 Medications Medications Current Medications Ondansetron HCl (Zofran Tab) 4 mg Q6H PRN PO NAUSEA AND/OR VOMITING Last administered on 11/18/16 08:09; Admin Dose 4 MG; Start 11/09/16 at 02:00 Metoclopramide HCl (Reglan) 10 mg Q6H PRN IV NAUSEA AND/OR VOMITING Last administered on 11/16/16 21:15; Admin Dose 10 MG; Start 11/09/16 at 02:00 Acetaminophen (Tylenol Tab) 650 mg Q6H PRN PO PAIN LEVEL 1-3 OR FEVER; Start at 02:00 Acetaminophen/ Hydrocodone Bitart ([place] (5/325)) 1 tab Q6H PRN PO MODERATE PAIN LEVEL 4-6 Last administered on 11/16/16 11:27; Admin Dose 1 TAB; Start 11/09/16 at 02:00 Acetaminophen/ Hydrocodone Bitart 2 tab 2 tab Q6H PRN PO SEVERE PAIN LEVEL 7- 10 Last administered on 11/18/16 08:04; Admin Dose 2 TAB; Start 11/09/16 at 02: 00 Sodium Chloride (NS) 250 ml @ 250 mls/hr PRN PRN IV SBP <80 Last administered on 11/11/16 00:52; Admin Dose 250 MLS/HR; Start 11/10/16 at 17:30 Lorazepam (Ativan) 1 mg Q4H PRN IV ANXIETY Last administered on 11/22/16 23:11 ; Admin Dose 0.5 MG; Start 11/14/16 at 23:30 Al Hydrox/Mg Hydrox/Simethicone (Mag-Al Plus) 30 ml Q6H PRN PO GASTROINTESTINAL UPSET Last administered on 11/16/16 21:15; Admin Dose 30 ML; Start 11/16/16 at 21:30 Diagnostic Test (Pha) (Accu-Chek) 1 ea 02 XX Last administered on 11/21/16 01: 26; Admin Dose 1 EA; Start 11/18/16 at 02:00 Hydromorphone HCl (Dilaudid) 1 mg Q2HWA PRN IV PAIN Last administered on 14:15; Admin Dose 1 MG; Start 11/18/16 at 13:30 Ondansetron HCl (Zofran Inj) 4 mg Q6H PRN IV NAUSEA AND/OR VOMITING Last administered on 11/23/16 03:56; Admin Dose 4 MG; Start 11/18/16 at 14:00 Pantoprazole 40 mg 40 mg BID@06,18 IV Last administered on 11/23/16 18:35; Admin Dose 40 MG; Start 11/20/16 at 18:00 Metronidazole 100 ml @ 100 mls/hr Q8 IVPB Last administered on 11/23/16 14:19 ; Admin Dose 100 MLS/HR; Start 11/20/16 at 22:00 Piperacillin Sod/ Tazobactam Sod 100 ml @ 200 mls/hr Q6 IVPB Last administered on 11/23/16 18:34; Admin Dose 200 MLS/HR; Start 11/21/16 at 00:00 Potassium Chloride/Dextrose/ Sod Cl (D5-NS + KCl 20 Meq) 1,000 ml @ 125 mls/hr Q8H IV Last administered on 11/23/16 18:35; Admin Dose 125 MLS/HR; Start 11/21 at 10:00 Morphine Sulfate (morphine) 2 mg Q4H PRN IV pain Last administered on 03:57; Admin Dose 2 MG; Start 11/21/16 at 10:30 Phenol (Cepastat Lozenge) 1 lozenge Q1H PRN MT throat irritation Last administered on 11/23/16 18:34; Admin Dose 1 LOZENGE; Start 11/21/16 at 10:30 Miscellaneous Information 1 ea NOTE XX ; Start 11/21/16 at 12:00 Glucose (Glutose) 15 gm Q15M PRN PO DECREASED GLUCOSE; Start 11/21/16 at 12:00 Glucose (Glutose) 22.5 gm Q15M PRN PO DECREASED GLUCOSE; Start 11/21/16 at 12: 00 Dextrose (D50w Syringe) 25 ml Q15M PRN IV DECREASED GLUCOSE Last administered on 11/21/16 11:45; Admin Dose 25 ML; Start 11/21/16 at 12:00 Dextrose (D50w Syringe) 50 ml Q15M PRN IV DECREASED GLUCOSE; Start 11/21/16 at 12:00 Glucagon (Glucagen) 1 mg Q15M PRN IM DECREASED GLUCOSE; Start 11/21/16 at 12:00 Glucose (Glutose) 15 gm Q15M PRN BUCCAL DECREASED GLUCOSE; Start 11/21/16 at 12 :00 Furosemide (Lasix) 20 mg DAILY IV Last administered on 11/23/16 09:00; Admin Dose 20 MG; Start 11/21/16 at 12:30 Octreotide Acetate (Sandostatin) 100 mcg TID SC Last administered on 11/23/16 14:19; Admin Dose 100 MCG; Start 11/23/16 at 09:00 DILLON MARTÍNEZ MD Nov 23, 2016 20:47
[2016-11-24] MEDS: PIPER-TAZO 3.375 GM IV (PMX) 100 ML IVPB SCH ×4 (00:08→19:01)
[2016-11-24] MEDS: ALBUTEROL 18 GM INHALER INH SCH ×4 (01:41→22:21)
[2016-11-24] MEDS: ACCU-CHEK XX SCH (01:41)
[2016-11-24] MEDS: HYDROmorphONE 1 MG/ML SYG IV PRN ×4 (01:50→22:17)
[2016-11-24] MEDS: D5-NS + KCL 20 MEQ 1,000 ML IV SCH ×2 (05:18→16:26)
[2016-11-24] MEDS: PANTOPRAZOLE 40 MG INJ IV SCH ×2 (05:19→19:02)
[2016-11-24] MEDS: metroNIDAZOLE 500 MG/NS (PMX) 100 ML IVPB SCH ×3 (05:49→22:18)
[2016-11-24] MEDS: INSULIN ASPART [NOVOLOG] 3 ML PEN SC SCH ×2 (07:50→11:40)
[2016-11-24 08:00] VITALS: BP 103/67; RESP 18
[2016-11-24 08:06] LABS: ADD SCAN DIFF NO
[2016-11-24 08:22] LABS: ABNORMAL IP MESSAGE 1; BASOPHIL # 0.1 10^3/ul (0.0-0.1); BASOPHILS % 0.9 % (0.0-2.0); EOSINOPHILS # 0.5 10^3/ul (0.0-0.5); EOSINOPHILS % 4.6 % (0.0-7.0); HEMOGLOBIN 10.6 g/dl (12.0-16.0); LYMPHOCYTES # 1.5 10^3/ul (0.8-2.9); LYMPHOCYTES % 15.2 % (15.0-51.0); MEAN CORPUSCULAR HEMOGLOBIN 28.6 pg (29.0-33.0); MEAN CORPUSCULAR HGB CONC 31.2 g/dl (32.0-37.0); MEAN CORPUSCULAR VOLUME 91.9 fl (82.0-101.0); MEAN PLATELET VOLUME 10.5 fl (7.4-10.4); MONOCYTE # 1.7 10^3/ul (0.3-0.9); MONOCYTES % 17.6 % (0.0-11.0); NEUTROPHILS % 60.9 % (39.0-77.0); PLATELET COUNT 333 10^3/UL (140-415); RED CELL DISTRIBUTION WIDTH 16.7 % (11.5-14.5); WHITE BLOOD COUNT 9.8 10^3/ul (4.8-10.8)
--- NOTE | 2016-11-24 10:50 | PN ---
Date/Time of Note Date/Time of Note DATE: 11/24/16 TIME: 10:29 Assessment/Plan VTE Prophylaxis VTE Prophylaxis Intervention: SCD's Lines/Catheters IV [facility] (from [facility]): Central Line Central line still needed: Yes Urinary Cath still in place: Yes Reason Cath still needed: other (indicate) Assessment/Plan Assessment/Plan 1. Newly diagnosed Metastatic Cancer, most likely of Ovarian origin, Stage IIIc * S/p Extended hysterectomy with bilateral salpingo-oophorectomy, Bilateral ureteral dissection with repositioning, Splenectomy with distal pancreatectomy, Omentectomy with cytoreduction, Pelvic and aortic lymph node dissection and Diaphragm stripping 2. S/p shock likely 2/2 volume depletion from third spacing with probable component of sepsis : probably from PNA: ?resolved 3. Malignant Ascites - s/p paracentesis on admission and during surgery 4. S/p Vent dependent Resp Failure - s/p successful Extubation 5. Diuretic induced renal insufficiency: resolved 5. Mild Pancreatitis: resolved 6. Hx of Hypertension: issue has been Hypotension from shock. Now BP stable off pressor 7. Normocytic Anemia 2/2 Iron deficiency: s/p IV iron replacement PLAN: * Continue post op care per [employer] onc / Planned to be started on TPN * PT to mobilize patient * Will order f/u CXR * Continue abx for a total of 2weeks at least * Plan is for commencement of chemo inhouse once cleared by surgery * Continue to monitor labs and vitals PROPHYLAXIS: SCDs/ PPI Subjective 24 Hr Interval Summary Free Text/Dictation Patient seen and examined. still having mild sorethroat and discomfort from palma Exam/Review of Systems Vital Signs Vitals Vital Signs Date Time Temp Pulse Resp B/P Pulse Ox O2 Delivery O2 Flow Rate FiO2 11/24/16 08:00 97.8 87 18 103/67 98 11/24/16 00:50 2.0 11/23/16 20:15 Nasal Cannula Intake and Output 11/23/16 11/23/16 11/24/16 14:59 22:59 06:59 Intake Total 900 ml Output Total 1040 ml 1145 ml Balance -1040 ml -245 ml Exam Constitutional: alert, oriented Psych: nl mood/affect Head: normocephalic Eyes: PERRL, No icteric ENMT: other (NGT) Respiratory: clear to auscultation, diminished breath sounds Cardiovascular: regular rate and rhythm, No murmurs/extra sounds Gastrointestinal: bowel sounds (hypoactive), distended, surgical scars ( covered in dressing, drain in place) Genitourinary - Female: other (palma), No nl external genitalia (mild vulval edema) Extremities: No edema Neurological: nl mental status Results Result Diagram: 11/24/16 0725 11/23/16 0710 Results 24 hrs Laboratory Tests Test 11/23/16 12:39 11/23/16 17:22 11/23/16 20:11 11/24/16 07:25 Bedside Glucose 144 108 98 White Blood Count 9.8 Red Blood Count 3.70 L Hemoglobin 10.6 L Hematocrit 34.0 L Mean Corpuscular Volume 91.9 Mean Corpuscular Hemoglobin 28.6 L Mean Corpuscular Hemoglobin Concent 31.2 L Red Cell Distribution Width 16.7 H Platelet Count 333 # Mean Platelet Volume 10.5 H Neutrophils % 60.9 Lymphocytes % 15.2 Monocytes % 17.6 H Eosinophils % 4.6 Basophils % 0.9 Nucleated Red Blood Cells % 0.0 Neutrophils # 6.0 Lymphocytes # 1.5 Monocytes # 1.7 H Eosinophils # 0.5 Basophils # 0.1 Nucleated Red Blood Cells # 0.0 Test 11/24/16 08:12 Bedside Glucose 105 Medications Medications Current Medications Ondansetron HCl (Zofran Tab) 4 mg Q6H PRN PO NAUSEA AND/OR VOMITING Last administered on 11/18/16 08:09; Admin Dose 4 MG; Start 11/09/16 at 02:00 Metoclopramide HCl (Reglan) 10 mg Q6H PRN IV NAUSEA AND/OR VOMITING Last administered on 11/16/16 21:15; Admin Dose 10 MG; Start 11/09/16 at 02:00 Acetaminophen (Tylenol Tab) 650 mg Q6H PRN PO PAIN LEVEL 1-3 OR FEVER; Start at 02:00 Acetaminophen/ Hydrocodone Bitart ([place] (5/325)) 1 tab Q6H PRN PO MODERATE PAIN LEVEL 4-6 Last administered on 11/16/16 11:27; Admin Dose 1 TAB; Start 11/09/16 at 02:00 Acetaminophen/ Hydrocodone Bitart 2 tab 2 tab Q6H PRN PO SEVERE PAIN LEVEL 7- 10 Last administered on 11/18/16 08:04; Admin Dose 2 TAB; Start 11/09/16 at 02: 00 Sodium Chloride (NS) 250 ml @ 250 mls/hr PRN PRN IV SBP <80 Last administered on 11/11/16 00:52; Admin Dose 250 MLS/HR; Start 11/10/16 at 17:30 Lorazepam (Ativan) 1 mg Q4H PRN IV ANXIETY Last administered on 11/22/16 23:11 ; Admin Dose 0.5 MG; Start 11/14/16 at 23:30 Al Hydrox/Mg Hydrox/Simethicone (Mag-Al Plus) 30 ml Q6H PRN PO GASTROINTESTINAL UPSET Last administered on 11/16/16 21:15; Admin Dose 30 ML; Start 11/16/16 at 21:30 Diagnostic Test (Pha) (Accu-Chek) 1 ea 02 XX Last administered on 11/21/16 01: 26; Admin Dose 1 EA; Start 11/18/16 at 02:00 Hydromorphone HCl (Dilaudid) 1 mg Q2HWA PRN IV PAIN Last administered on 05:48; Admin Dose 1 MG; Start 11/18/16 at 13:30 Ondansetron HCl (Zofran Inj) 4 mg Q6H PRN IV NAUSEA AND/OR VOMITING Last administered on 11/23/16 03:56; Admin Dose 4 MG; Start 11/18/16 at 14:00 Pantoprazole 40 mg 40 mg BID@06,18 IV Last administered on 11/24/16 05:19; Admin Dose 40 MG; Start 11/20/16 at 18:00 Metronidazole 100 ml @ 100 mls/hr Q8 IVPB Last administered on 11/24/16 05:49 ; Admin Dose 100 MLS/HR; Start 11/20/16 at 22:00 Piperacillin Sod/ Tazobactam Sod 100 ml @ 200 mls/hr Q6 IVPB Last administered on 11/24/16 05:19; Admin Dose 200 MLS/HR; Start 11/21/16 at 00:00 Potassium Chloride/Dextrose/ Sod Cl (D5-NS + KCl 20 Meq) 1,000 ml @ 125 mls/hr Q8H IV Last administered on 11/24/16 05:18; Admin Dose 125 MLS/HR; Start 11/21 at 10:00 Morphine Sulfate (morphine) 2 mg Q4H PRN IV pain Last administered on 03:57; Admin Dose 2 MG; Start 11/21/16 at 10:30 Phenol (Cepastat Lozenge) 1 lozenge Q1H PRN MT throat irritation Last administered on 11/23/16 18:34; Admin Dose 1 LOZENGE; Start 11/21/16 at 10:30 Miscellaneous Information 1 ea NOTE XX ; Start 11/21/16 at 12:00 Glucose (Glutose) 15 gm Q15M PRN PO DECREASED GLUCOSE; Start 11/21/16 at 12:00 Glucose (Glutose) 22.5 gm Q15M PRN PO DECREASED GLUCOSE; Start 11/21/16 at 12: 00 Dextrose (D50w Syringe) 25 ml Q15M PRN IV DECREASED GLUCOSE Last administered on 11/21/16 11:45; Admin Dose 25 ML; Start 11/21/16 at 12:00 Dextrose (D50w Syringe) 50 ml Q15M PRN IV DECREASED GLUCOSE; Start 11/21/16 at 12:00 Glucagon (Glucagen) 1 mg Q15M PRN IM DECREASED GLUCOSE; Start 11/21/16 at 12:00 Glucose (Glutose) 15 gm Q15M PRN BUCCAL DECREASED GLUCOSE; Start 11/21/16 at 12 :00 Furosemide (Lasix) 20 mg DAILY IV Last administered on 11/23/16 09:00; Admin Dose 20 MG; Start 11/21/16 at 12:30 Octreotide Acetate (Sandostatin) 100 mcg TID SC Last administered on 11/23/16 21:21; Admin Dose 100 MCG; Start 11/23/16 at 09:00 JYOTHI BENAVIDES Nov 24, 2016 10:41
--- NOTE | 2016-11-24 12:50 | CONS ---
Date/Time of Note Date/Time of Note DATE: 11/24/16 TIME: 12:48 Assessment/Plan Assessment/Plan Chief Complaint/Hosp Course 56 yo female with malignant ascites who has since been diagnosed with FIGO stage III ovarian cancer. Surg path reveals an 8.5 cm tumor in right ovary, 1.2 cm tumor in L ovary and 1.5 cm tumor in L fallopian tube. The disease noted to involve the omentum, spleen, uterus, cervix and diaphragm. # ovarian ca, papillary serous , FIGO stage IIIc -once patient is ambulating and tolerating her diet, will need to start chemotherapy in house -will plant to start Carboplatin/ Taxol once patient is cleared by Dr. Garcia. Will likely given in a dose dense fashion. # Anemia - post op and secondary to iron deficiency -transfusion parameter per Dr. Garcia -s/p 3 days of IV iron to help maintain her Hg Approximately 40 min were spent at patient's bedside and in coordination of her care Approximately 40 min were spent at patient's bedside and in coordination of her care Problems: Consultation Date/Type/Reason Admit Date/Time Nov 09, 2016 at 00:55 Initial Consult Date 11/17/16 Type of Consultation: Oncology Reason for Consultation ovarian cancer Referring Provider: JYOTHI BENAVIDES 24 HR Interval Summary Free Text/Dictation NGT out put less. pt feeling better today. still not ambulating Exam/Review of Systems Vital Signs Vitals Vital Signs Date Time Temp Pulse Resp B/P Pulse Ox O2 Delivery O2 Flow Rate FiO2 11/24/16 08:00 97.8 87 18 103/67 98 11/24/16 00:50 2.0 11/23/16 20:15 Nasal Cannula Intake and Output 11/23/16 11/23/16 11/24/16 15:00 23:00 07:00 Intake Total 900 ml Output Total 1040 ml 1145 ml Balance -1040 ml -245 ml Exam Constitutional: alert, oriented Head: normocephalic Eyes: nl conjunctiva ENMT: nl external ears & nose, other (NGT in place) Respiratory: clear to auscultation, normal air movement Cardiovascular: nl pulses Gastrointestinal: surgical scars Musculoskeletal: nl extremities to inspection, nl gait and stance, swelling Results Result Diagram: 11/24/16 0725 11/23/16 0710 Results 24 hrs Laboratory Tests Test 11/23/16 17:22 11/23/16 20:11 11/24/16 07:25 11/24/16 08:12 Bedside Glucose 108 98 105 White Blood Count 9.8 Red Blood Count 3.70 L Hemoglobin 10.6 L Hematocrit 34.0 L Mean Corpuscular Volume 91.9 Mean Corpuscular Hemoglobin 28.6 L Mean Corpuscular Hemoglobin Concent 31.2 L Red Cell Distribution Width 16.7 H Platelet Count 333 # Mean Platelet Volume 10.5 H Neutrophils % 60.9 Lymphocytes % 15.2 Monocytes % 17.6 H Eosinophils % 4.6 Basophils % 0.9 Nucleated Red Blood Cells % 0.0 Neutrophils # 6.0 Lymphocytes # 1.5 Monocytes # 1.7 H Eosinophils # 0.5 Basophils # 0.1 Nucleated Red Blood Cells # 0.0 Test 11/24/16 12:16 Bedside Glucose 114 Medications Medications Current Medications Ondansetron HCl (Zofran Tab) 4 mg Q6H PRN PO NAUSEA AND/OR VOMITING Last administered on 11/18/16 08:09; Admin Dose 4 MG; Start 11/09/16 at 02:00 Metoclopramide HCl (Reglan) 10 mg Q6H PRN IV NAUSEA AND/OR VOMITING Last administered on 11/16/16 21:15; Admin Dose 10 MG; Start 11/09/16 at 02:00 Acetaminophen (Tylenol Tab) 650 mg Q6H PRN PO PAIN LEVEL 1-3 OR FEVER; Start at 02:00 Acetaminophen/ Hydrocodone Bitart ([place] (5/325)) 1 tab Q6H PRN PO MODERATE PAIN LEVEL 4-6 Last administered on 11/16/16 11:27; Admin Dose 1 TAB; Start 11/09/16 at 02:00 Acetaminophen/ Hydrocodone Bitart 2 tab 2 tab Q6H PRN PO SEVERE PAIN LEVEL 7- 10 Last administered on 11/18/16 08:04; Admin Dose 2 TAB; Start 11/09/16 at 02: 00 Sodium Chloride (NS) 250 ml @ 250 mls/hr PRN PRN IV SBP <80 Last administered on 11/11/16 00:52; Admin Dose 250 MLS/HR; Start 11/10/16 at 17:30 Lorazepam (Ativan) 1 mg Q4H PRN IV ANXIETY Last administered on 11/22/16 23:11 ; Admin Dose 0.5 MG; Start 11/14/16 at 23:30 Al Hydrox/Mg Hydrox/Simethicone (Mag-Al Plus) 30 ml Q6H PRN PO GASTROINTESTINAL UPSET Last administered on 11/16/16 21:15; Admin Dose 30 ML; Start 11/16/16 at 21:30 Diagnostic Test (Pha) (Accu-Chek) 1 ea 02 XX Last administered on 11/21/16 01: 26; Admin Dose 1 EA; Start 11/18/16 at 02:00 Hydromorphone HCl (Dilaudid) 1 mg Q2HWA PRN IV PAIN Last administered on 05:48; Admin Dose 1 MG; Start 11/18/16 at 13:30 Ondansetron HCl (Zofran Inj) 4 mg Q6H PRN IV NAUSEA AND/OR VOMITING Last administered on 11/23/16 03:56; Admin Dose 4 MG; Start 11/18/16 at 14:00 Pantoprazole 40 mg 40 mg BID@06,18 IV Last administered on 11/24/16 05:19; Admin Dose 40 MG; Start 11/20/16 at 18:00 Metronidazole 100 ml @ 100 mls/hr Q8 IVPB Last administered on 11/24/16 05:49 ; Admin Dose 100 MLS/HR; Start 11/20/16 at 22:00 Piperacillin Sod/ Tazobactam Sod 100 ml @ 200 mls/hr Q6 IVPB Last administered on 11/24/16 05:19; Admin Dose 200 MLS/HR; Start 11/21/16 at 00:00 Potassium Chloride/Dextrose/ Sod Cl (D5-NS + KCl 20 Meq) 1,000 ml @ 125 mls/hr Q8H IV Last administered on 11/24/16 05:18; Admin Dose 125 MLS/HR; Start 11/21 at 10:00 Morphine Sulfate (morphine) 2 mg Q4H PRN IV pain Last administered on 03:57; Admin Dose 2 MG; Start 11/21/16 at 10:30 Phenol (Cepastat Lozenge) 1 lozenge Q1H PRN MT throat irritation Last administered on 11/23/16 18:34; Admin Dose 1 LOZENGE; Start 11/21/16 at 10:30 Miscellaneous Information 1 ea NOTE XX ; Start 11/21/16 at 12:00 Glucose (Glutose) 15 gm Q15M PRN PO DECREASED GLUCOSE; Start 11/21/16 at 12:00 Glucose (Glutose) 22.5 gm Q15M PRN PO DECREASED GLUCOSE; Start 11/21/16 at 12: 00 Dextrose (D50w Syringe) 25 ml Q15M PRN IV DECREASED GLUCOSE Last administered on 11/21/16 11:45; Admin Dose 25 ML; Start 11/21/16 at 12:00 Dextrose (D50w Syringe) 50 ml Q15M PRN IV DECREASED GLUCOSE; Start 11/21/16 at 12:00 Glucagon (Glucagen) 1 mg Q15M PRN IM DECREASED GLUCOSE; Start 11/21/16 at 12:00 Glucose (Glutose) 15 gm Q15M PRN BUCCAL DECREASED GLUCOSE; Start 11/21/16 at 12 :00 Furosemide (Lasix) 20 mg DAILY IV Last administered on 11/23/16 09:00; Admin Dose 20 MG; Start 11/21/16 at 12:30 Octreotide Acetate (Sandostatin) 100 mcg TID SC Last administered on 11/23/16 21:21; Admin Dose 100 MCG; Start 11/23/16 at 09:00 Ketorolac Tromethamine (Toradol) 15 mg Q6 IV ; Start 11/24/16 at 12:00; Stop at 11:59 FLORINDA COATES M.D. Nov 24, 2016 12:50
[2016-11-24] MEDS: OCTREOTIDE 100 MCG INJ SC SCH ×3 (13:00→20:39)
[2016-11-24] MEDS: KETOROLAC 15 MG INJ IV SCH ×2 (13:08→19:02)
[2016-11-24] MEDS: FUROSEMIDE 20 MG INJ IV SCH (13:09)
[2016-11-24] MEDS ORDERED: DO NOT FORGET TO ENTER HYPOGLYCEMIC PROTOCOL XX SCH (14:00)
[2016-11-24] MEDS: Insulin NOVOLOG SS MILD Algorithm (NPO/TPN/ENTERAL FEEDS) SC SCH ×2 (17:00→21:49)
[2016-11-24] MEDS ORDERED: INSULIN ASPART [NOVOLOG] 3 ML PEN SC SCH (18:00)
[2016-11-24] MEDS: TPN 1,000 ML IV SCH (19:01)
[2016-11-24] MEDS: FAT EMULSION 20% 250 ML IV SCH (19:02)
[2016-11-24 19:15] VITALS: BP 116/66; RESP 18
[2016-11-24] MEDS ORDERED: VITAMIN A & D 5 GM OINT PACKET TOP ONE (19:54)
[2016-11-24] MEDS: CEPASTAT LOZENGE MT PRN (20:38)
--- NOTE | 2016-11-24 22:47 | PN ---
Date/Time of Note Date/Time of Note DATE: 11/24/16 TIME: 22:43 Assessment/Plan VTE Prophylaxis VTE Prophylaxis Intervention: SCD's Lines/Catheters IV Catheter Type (from Nrs): Central Line Central line still needed: Yes Urinary Cath still in place: Yes Reason Cath still needed: urinary retention Assessment/Plan Chief Complaint/Hosp Course Probable ovarian cancer vs peritoneal Problems: Assessment/Plan A- clinically improved with less JEWEL drainage. P- MUST try to send JEWEL fluid for amylase and Lipase to determine if any pancreatic leakage. This will determine how rapidly I can remove NGT, taper Sandostatin and feed.For now will try to get OOB more. Subjective 24 Hr Interval Summary Free Text/Dictation more comfortable with less pain. minimally OOB Exam/Review of Systems Vital Signs Vitals Vital Signs Date Time Temp Pulse Resp B/P Pulse Ox O2 Delivery O2 Flow Rate FiO2 11/24/16 19:15 97.7 80 18 116/66 97 11/24/16 10:00 2.0 11/23/16 20:15 Nasal Cannula Intake and Output 11/23/16 11/23/16 11/24/16 15:00 23:00 07:00 Intake Total 900 ml Output Total 1040 ml 1145 ml Balance -1040 ml -245 ml Exam Constitutional: alert Respiratory: clear to auscultation, normal air movement Cardiovascular: nl pulses Gastrointestinal: soft Extremities: normal pulses, No calf tenderness, No clubbing, No cyanosis, No edema, No other, No palpable cord, No pitting pedal edema, No tenderness Results Result Diagram: 11/24/16 0725 11/23/16 0710 Results 24 hrs Laboratory Tests Test 11/24/16 07:25 11/24/16 08:12 11/24/16 12:16 11/24/16 17:26 White Blood Count 9.8 Red Blood Count 3.70 L Hemoglobin 10.6 L Hematocrit 34.0 L Mean Corpuscular Volume 91.9 Mean Corpuscular Hemoglobin 28.6 L Mean Corpuscular Hemoglobin Concent 31.2 L Red Cell Distribution Width 16.7 H Platelet Count 333 # Mean Platelet Volume 10.5 H Neutrophils % 60.9 Lymphocytes % 15.2 Monocytes % 17.6 H Eosinophils % 4.6 Basophils % 0.9 Nucleated Red Blood Cells % 0.0 Neutrophils # 6.0 Lymphocytes # 1.5 Monocytes # 1.7 H Eosinophils # 0.5 Basophils # 0.1 Nucleated Red Blood Cells # 0.0 Bedside Glucose 105 114 92 Test 11/24/16 21:45 Bedside Glucose 146 Medications Medications Current Medications Ondansetron HCl (Zofran Tab) 4 mg Q6H PRN PO NAUSEA AND/OR VOMITING Last administered on 11/18/16 08:09; Admin Dose 4 MG; Start 11/09/16 at 02:00 Metoclopramide HCl (Reglan) 10 mg Q6H PRN IV NAUSEA AND/OR VOMITING Last administered on 11/16/16 21:15; Admin Dose 10 MG; Start 11/09/16 at 02:00 Acetaminophen (Tylenol Tab) 650 mg Q6H PRN PO PAIN LEVEL 1-3 OR FEVER; Start at 02:00 Acetaminophen/ Hydrocodone Bitart ([place] (5/325)) 1 tab Q6H PRN PO MODERATE PAIN LEVEL 4-6 Last administered on 11/16/16 11:27; Admin Dose 1 TAB; Start 11/09/16 at 02:00 Acetaminophen/ Hydrocodone Bitart 2 tab 2 tab Q6H PRN PO SEVERE PAIN LEVEL 7- 10 Last administered on 11/18/16 08:04; Admin Dose 2 TAB; Start 11/09/16 at 02: 00 Sodium Chloride (NS) 250 ml @ 250 mls/hr PRN PRN IV SBP <80 Last administered on 11/11/16 00:52; Admin Dose 250 MLS/HR; Start 11/10/16 at 17:30 Lorazepam (Ativan) 1 mg Q4H PRN IV ANXIETY Last administered on 11/22/16 23:11 ; Admin Dose 0.5 MG; Start 11/14/16 at 23:30 Al Hydrox/Mg Hydrox/Simethicone (Mag-Al Plus) 30 ml Q6H PRN PO GASTROINTESTINAL UPSET Last administered on 11/16/16 21:15; Admin Dose 30 ML; Start 11/16/16 at 21:30 Diagnostic Test (Pha) (Accu-Chek) 1 ea 02 XX Last administered on 11/21/16 01: 26; Admin Dose 1 EA; Start 11/18/16 at 02:00 Hydromorphone HCl (Dilaudid) 1 mg Q2HWA PRN IV PAIN Last administered on 22:17; Admin Dose 1 MG; Start 11/18/16 at 13:30 Ondansetron HCl (Zofran Inj) 4 mg Q6H PRN IV NAUSEA AND/OR VOMITING Last administered on 11/23/16 03:56; Admin Dose 4 MG; Start 11/18/16 at 14:00 Pantoprazole 40 mg 40 mg BID@06,18 IV Last administered on 11/24/16 19:02; Admin Dose 40 MG; Start 11/20/16 at 18:00 Metronidazole 100 ml @ 100 mls/hr Q8 IVPB Last administered on 11/24/16 22:18 ; Admin Dose 100 MLS/HR; Start 11/20/16 at 22:00 Piperacillin Sod/ Tazobactam Sod (Zosyn 3.375gm/ 100 ml (Pmx)) 100 ml @ 200 mls /hr Q6 IVPB Last administered on 11/24/16 19:01; Admin Dose 200 MLS/HR; Start 11/21/16 at 00:00 Morphine Sulfate (morphine) 2 mg Q4H PRN IV pain Last administered on 03:57; Admin Dose 2 MG; Start 11/21/16 at 10:30 Phenol (Cepastat Lozenge) 1 lozenge Q1H PRN MT throat irritation Last administered on 11/24/16 20:38; Admin Dose 1 LOZENGE; Start 11/21/16 at 10:30 Miscellaneous Information 1 ea NOTE XX ; Start 11/21/16 at 12:00 Glucose (Glutose) 15 gm Q15M PRN PO DECREASED GLUCOSE; Start 11/21/16 at 12:00 Glucose (Glutose) 22.5 gm Q15M PRN PO DECREASED GLUCOSE; Start 11/21/16 at 12: 00 Dextrose (D50w Syringe) 25 ml Q15M PRN IV DECREASED GLUCOSE Last administered on 11/21/16 11:45; Admin Dose 25 ML; Start 11/21/16 at 12:00 Dextrose (D50w Syringe) 50 ml Q15M PRN IV DECREASED GLUCOSE; Start 11/21/16 at 12:00 Glucagon (Glucagen) 1 mg Q15M PRN IM DECREASED GLUCOSE; Start 4/18/17 at 12:00 Glucose (Glutose) 15 gm Q15M PRN BUCCAL DECREASED GLUCOSE; Start 11/21/16 at 12 :00 Furosemide (Lasix) 20 mg DAILY IV Last administered on 11/24/16 13:09; Admin Dose 20 MG; Start 11/21/16 at 12:30 Octreotide Acetate (Sandostatin) 100 mcg TID SC Last administered on 11/24/16 20:39; Admin Dose 100 MCG; Start 11/23/16 at 09:00 Ketorolac Tromethamine 15 mg 15 mg Q6 IV Last administered on 11/24/16 19:02; Admin Dose 15 MG; Start 11/24/16 at 12:00; Stop 11/27/16 at 11:59 Potassium Chloride/Dextrose/ Sod Cl (D5-NS + KCl 20 Meq) 1,000 ml @ 75 mls/hr [id number] IV Last administered on 11/24/16 16:26; Admin Dose 75 MLS/HR; Start at 14:00 Insulin Aspart (Novolog Insulin Pen) (Adult SC Insulin - Mild Algorithm)... Q4 SC Last administered on 11/24/16 21:49; Admin Dose 1 UNIT; Start 11/24/16 at 17:00 Miscellaneous Information 1 ea 1 ea NOTE XX ; Start 11/24/16 at 14:00 Total Parenteral Nutrition 1,000 ml @ 40 mls/hr Q24H IV Last administered on 19:01; Admin Dose 40 MLS/HR; Start 11/24/16 at 17:00 Fat Emulsion Intravenous (Liposyn Ii 20%) 250 ml @ 10.4 mls/hr Q24H IV Last administered on 11/24/16 19:02; Admin Dose 10.4 MLS/HR; Start 11/24/16 at 17:00 DILLON MARTÍNEZ MD Nov 24, 2016 22:47
[2016-11-24 23:49] LABS: FLUID AMYLASE < 30 U/L
[2016-11-25] MEDS: PIPER-TAZO 3.375 GM IV (PMX) 100 ML IVPB SCH ×4 (00:17→18:03)
[2016-11-25] MEDS: KETOROLAC 15 MG INJ IV SCH ×4 (00:18→18:03)
[2016-11-25] MEDS: Insulin NOVOLOG SS MILD Algorithm (NPO/TPN/ENTERAL FEEDS) SC SCH ×4 (01:00→12:15)
[2016-11-25] MEDS: ALBUTEROL 18 GM INHALER INH SCH ×4 (01:39→20:00)
[2016-11-25] MEDS: ACCU-CHEK XX SCH ×2 (01:39→18:05)
[2016-11-25] MEDS: D5-NS + KCL 20 MEQ 1,000 ML IV SCH ×3 (02:59→22:00)
[2016-11-25] MEDS: HYDROmorphONE 1 MG/ML SYG IV PRN ×4 (03:02→20:06)
[2016-11-25 05:33] LABS: ADD SCAN DIFF NO
[2016-11-25] MEDS: metroNIDAZOLE 500 MG/NS (PMX) 100 ML IVPB SCH ×3 (05:46→22:23)
[2016-11-25 05:47] LABS: ABNORMAL IP MESSAGE 1; BASOPHIL # 0.1 10^3/ul (0.0-0.1); EOSINOPHILS # 0.4 10^3/ul (0.0-0.5); HEMATOCRIT 33.2 % (37.0-47.0); HEMOGLOBIN 10.5 g/dl (12.0-16.0); LYMPHOCYTES # 1.7 10^3/ul (0.8-2.9); LYMPHOCYTES % 17.9 % (15.0-51.0); MEAN CORPUSCULAR HEMOGLOBIN 29.2 pg (29.0-33.0); MEAN CORPUSCULAR HGB CONC 31.6 g/dl (32.0-37.0); MEAN CORPUSCULAR VOLUME 92.5 fl (82.0-101.0); MEAN PLATELET VOLUME 9.8 fl (7.4-10.4); MONOCYTE # 1.6 10^3/ul (0.3-0.9); MONOCYTES % 17.1 % (0.0-11.0); NEUTROPHIL # 5.5 10^3/ul (1.6-7.5); NEUTROPHILS % 58.6 % (39.0-77.0); PLATELET COUNT 418 10^3/UL (140-415); RED BLOOD COUNT 3.59 10^6/ul (4.20-5.40); RED CELL DISTRIBUTION WIDTH 16.7 % (11.5-14.5); WHITE BLOOD COUNT 9.4 10^3/ul (4.8-10.8)
[2016-11-25] MEDS: PANTOPRAZOLE 40 MG INJ IV SCH ×2 (05:47→18:03)
[2016-11-25 06:12] LABS: ALBUMIN 1.8 g/dl (3.3-4.9); POTASSIUM 3.4 mmol/L (3.5-5.1)
[2016-11-25 06:15] LABS: CALCIUM 7.2 mg/dl (8.4-10.2); CREATININE 0.77 mg/dl (0.44-1.00); PHOSPHORUS 2.8 mg/dl (2.5-4.9)
[2016-11-25 06:16] LABS: MAGNESIUM 1.6 mg/dl (1.7-2.5)
[2016-11-25 07:43] VITALS: BP 96/55; RESP 16
[2016-11-25] MEDS: OCTREOTIDE 100 MCG INJ SC SCH ×3 (09:04→20:55)
[2016-11-25 10:25] VITALS: BP 116/67; PULSE 72; RESP 16
[2016-11-25] MEDS: FUROSEMIDE 20 MG INJ IV SCH (10:28)
--- NOTE | 2016-11-25 12:31 | PN ---
Date/Time of Note Date/Time of Note DATE: 11/25/16 TIME: 12:27 Assessment/Plan VTE Prophylaxis VTE Prophylaxis Intervention: SCD's Lines/Catheters IV Catheter Type (from [facility]): Central Line Central line still needed: Yes Urinary Cath still in place: Yes Reason Cath still needed: other (indicate) Assessment/Plan Assessment/Plan 1. Newly diagnosed Metastatic Cancer, most likely of Ovarian origin, Stage IIIc * S/p Extended hysterectomy with bilateral salpingo-oophorectomy, Bilateral ureteral dissection with repositioning, Splenectomy with distal pancreatectomy, Omentectomy with cytoreduction, Pelvic and aortic lymph node dissection and Diaphragm stripping 2. S/p shock likely 2/2 volume depletion from third spacing with probable component of sepsis : probably from PNA: ?resolved 3. Malignant Ascites - s/p paracentesis on admission and during surgery 4. S/p Vent dependent Resp Failure - s/p successful Extubation 5. Diuretic induced renal insufficiency: resolved 5. Mild Pancreatitis: resolved 6. Hx of Hypertension: issue has been Hypotension from shock. Now BP stable off pressor 7. Normocytic Anemia 2/2 Iron deficiency: s/p IV iron replacement PLAN: * Continue post op care per Intern onc / Started on TPN * PT to mobilize patient * Continue abx for a total of 2weeks at least * Plan is for commencement of chemo inhouse once cleared by surgery * Continue to monitor labs and vitals PROPHYLAXIS: SCDs/ PPI Subjective 24 Hr Interval Summary Free Text/Dictation Improved. Bladder training in progress. Exam/Review of Systems Vital Signs Vitals Vital Signs Date Time Temp Pulse Resp B/P Pulse Ox O2 Delivery O2 Flow Rate FiO2 11/25/16 10:25 72 16 116/67 98 Nasal Cannula 3.0 11/25/16 07:43 98.0 Intake and Output 11/24/16 11/24/16 11/25/16 15:00 23:00 07:00 Intake Total 100 ml 1425 ml 1879 ml Output Total 1055 ml 1460 ml Balance 100 ml 370 ml 419 ml Exam Constitutional: alert, oriented Psych: nl mood/affect Head: normocephalic Eyes: PERRL, No icteric ENMT: other (NGT) Respiratory: clear to auscultation, diminished breath sounds Cardiovascular: regular rate and rhythm, No murmurs/extra sounds Gastrointestinal: bowel sounds (hypoactive), distended, surgical scars ( covered in dressing, drain in place) Genitourinary - Female: other (palma), No nl external genitalia (mild vulval edema) Extremities: No edema Neurological: nl mental status Results Result Diagram: 11/25/16 0507 11/25/16 0507 Results 24 hrs Laboratory Tests Test 11/24/16 17:26 11/24/16 21:45 11/24/16 22:55 11/25/16 01:42 Bedside Glucose 92 146 129 Body Fluid Type Body Fluid Amylase < 30 Test 11/25/16 05:07 11/25/16 05:49 11/25/16 08:00 11/25/16 11:47 White Blood Count 9.4 Red Blood Count 3.59 L Hemoglobin 10.5 L Hematocrit 33.2 L Mean Corpuscular Volume 92.5 Mean Corpuscular Hemoglobin 29.2 Mean Corpuscular Hemoglobin Concent 31.6 L Red Cell Distribution Width 16.7 H Platelet Count 418 #H Mean Platelet Volume 9.8 Neutrophils % 58.6 Lymphocytes % 17.9 Monocytes % 17.1 H Eosinophils % 4.0 Basophils % 1.0 Nucleated Red Blood Cells % 0.0 Neutrophils # 5.5 Lymphocytes # 1.7 Monocytes # 1.6 H Eosinophils # 0.4 Basophils # 0.1 Nucleated Red Blood Cells # 0.0 Sodium Level 141 Potassium Level 3.4 L Chloride Level 105 Carbon Dioxide Level 31 Anion Gap 8 Blood Urea Nitrogen 4 L Creatinine 0.77 Glucose Level 125 Calcium Level 7.2 L Phosphorus Level 2.8 Magnesium Level 1.6 L Albumin 1.8 L Bedside Glucose 122 112 144 Medications Medications Current Medications Ondansetron HCl (Zofran Tab) 4 mg Q6H PRN PO NAUSEA AND/OR VOMITING Last administered on 11/18/16 08:09; Admin Dose 4 MG; Start 11/09/16 at 02:00 Metoclopramide HCl (Reglan) 10 mg Q6H PRN IV NAUSEA AND/OR VOMITING Last administered on 11/16/16 21:15; Admin Dose 10 MG; Start 11/09/16 at 02:00 Acetaminophen (Tylenol Tab) 650 mg Q6H PRN PO PAIN LEVEL 1-3 OR FEVER; Start at 02:00 Acetaminophen/ Hydrocodone Bitart ([place] (5/325)) 1 tab Q6H PRN PO MODERATE PAIN LEVEL 4-6 Last administered on 11/16/16 11:27; Admin Dose 1 TAB; Start 11/09/16 at 02:00 Acetaminophen/ Hydrocodone Bitart 2 tab 2 tab Q6H PRN PO SEVERE PAIN LEVEL 7- 10 Last administered on 11/18/16 08:04; Admin Dose 2 TAB; Start 11/09/16 at 02: 00 Sodium Chloride (NS) 250 ml @ 250 mls/hr PRN PRN IV SBP <80 Last administered on 11/11/16 00:52; Admin Dose 250 MLS/HR; Start 11/10/16 at 17:30 Lorazepam (Ativan) 1 mg Q4H PRN IV ANXIETY Last administered on 11/22/16 23:11 ; Admin Dose 0.5 MG; Start 11/14/16 at 23:30 Al Hydrox/Mg Hydrox/Simethicone (Mag-Al Plus) 30 ml Q6H PRN PO GASTROINTESTINAL UPSET Last administered on 11/16/16 21:15; Admin Dose 30 ML; Start 11/16/16 at 21:30 Diagnostic Test (Pha) (Accu-Chek) 1 ea 02 XX Last administered on 11/21/16 01: 26; Admin Dose 1 EA; Start 11/18/16 at 02:00 Hydromorphone HCl (Dilaudid) 1 mg Q2HWA PRN IV PAIN Last administered on 07:54; Admin Dose 1 MG; Start 11/18/16 at 13:30 Ondansetron HCl (Zofran Inj) 4 mg Q6H PRN IV NAUSEA AND/OR VOMITING Last administered on 11/23/16 03:56; Admin Dose 4 MG; Start 11/18/16 at 14:00 Pantoprazole 40 mg 40 mg BID@06,18 IV Last administered on 11/25/16 05:47; Admin Dose 40 MG; Start 11/20/16 at 18:00 Metronidazole 100 ml @ 100 mls/hr Q8 IVPB Last administered on 11/25/16 05:46 ; Admin Dose 100 MLS/HR; Start 11/20/16 at 22:00 Piperacillin Sod/ Tazobactam Sod (Zosyn 3.375gm/ 100 ml (Pmx)) 100 ml @ 200 mls /hr Q6 IVPB Last administered on 11/25/16 12:07; Admin Dose 200 MLS/HR; Start 11/21/16 at 00:00 Morphine Sulfate (morphine) 2 mg Q4H PRN IV pain Last administered on 03:57; Admin Dose 2 MG; Start 11/21/16 at 10:30 Phenol (Cepastat Lozenge) 1 lozenge Q1H PRN MT throat irritation Last administered on 11/24/16 20:38; Admin Dose 1 LOZENGE; Start 11/21/16 at 10:30 Miscellaneous Information 1 ea NOTE XX ; Start 11/21/16 at 12:00 Glucose (Glutose) 15 gm Q15M PRN PO DECREASED GLUCOSE; Start 11/21/16 at 12:00 Glucose (Glutose) 22.5 gm Q15M PRN PO DECREASED GLUCOSE; Start 11/21/16 at 12: 00 Dextrose (D50w Syringe) 25 ml Q15M PRN IV DECREASED GLUCOSE Last administered on 11/21/16 11:45; Admin Dose 25 ML; Start 11/21/16 at 12:00 Dextrose (D50w Syringe) 50 ml Q15M PRN IV DECREASED GLUCOSE; Start 11/21/16 at 12:00 Glucagon (Glucagen) 1 mg Q15M PRN IM DECREASED GLUCOSE; Start 11/21/16 at 12:00 Glucose (Glutose) 15 gm Q15M PRN BUCCAL DECREASED GLUCOSE; Start 11/21/16 at 12 :00 Furosemide (Lasix) 20 mg DAILY IV Last administered on 11/25/16 10:28; Admin Dose 20 MG; Start 11/21/16 at 12:30 Octreotide Acetate (Sandostatin) 100 mcg TID SC Last administered on 11/25/16 09:04; Admin Dose 100 MCG; Start 11/23/16 at 09:00 Ketorolac Tromethamine 15 mg 15 mg Q6 IV Last administered on 11/25/16 12:07; Admin Dose 15 MG; Start 11/24/16 at 12:00; Stop 11/27/16 at 11:59 Potassium Chloride/Dextrose/ Sod Cl (D5-NS + KCl 20 Meq) 1,000 ml @ 75 mls/hr [id number] IV Last administered on 11/25/16 02:59; Admin Dose 75 MLS/HR; Start at 14:00 Insulin Aspart (Novolog Insulin Pen) (Adult SC Insulin - Mild Algorithm)... Q4 SC Last administered on 11/25/16 12:15; Admin Dose 1 UNIT; Start 11/24/16 at 17:00 Miscellaneous Information 1 ea 1 ea NOTE XX ; Start 11/24/16 at 14:00 Total Parenteral Nutrition 1,000 ml @ 40 mls/hr Q24H IV Last administered on 19:01; Admin Dose 40 MLS/HR; Start 11/24/16 at 17:00 Fat Emulsion Intravenous (Liposyn Ii 20%) 250 ml @ 10.4 mls/hr Q24H IV Last administered on 11/24/16 19:02; Admin Dose 10.4 MLS/HR; Start 11/24/16 at 17:00 JYOTHI BENAVIDES Nov 25, 2016 12:31
[2016-11-25] MEDS ORDERED: MAGNESIUM SULFATE 2 GM/50 ML 50 ML IVPB ONE (13:33)
--- NOTE | 2016-11-25 13:51 | PN ---
Date/Time of Note Date/Time of Note DATE: 11/25/16 TIME: 13:47 Assessment/Plan VTE Prophylaxis VTE Prophylaxis Intervention: SCD's Lines/Catheters IV Catheter Type (from Nrs): Central Line Central line still needed: Yes Urinary Cath still in place: Yes Reason Cath still needed: urinary retention Assessment/Plan Chief Complaint/Hosp Course Probable ovarian cancer vs peritoneal Problems: Assessment/Plan A- clinically improving and low amylase on JEWEL strongly suggests that the fluid is third space mobilizing a/o ascites or some lymphatic drainage: NOT pancreatic drainage or fistula from her en-bloc splenectomy / distal pancreatectomy (only about 1/2 cm) P- Given above will clamp NGT and check residual and if low remove. Will then try to remove [place] tomorrow and advance diet over 3-4 days and then Carbo/ Taxol. Subjective 24 Hr Interval Summary Free Text/Dictation Some flatus and minimally OOB. Exam/Review of Systems Vital Signs Vitals Vital Signs Date Time Temp Pulse Resp B/P Pulse Ox O2 Delivery O2 Flow Rate FiO2 11/25/16 10:25 72 16 116/67 98 Nasal Cannula 3.0 11/25/16 07:43 98.0 Intake and Output 11/24/16 11/24/16 11/25/16 15:00 23:00 07:00 Intake Total 100 ml 1425 ml 1879 ml Output Total 1055 ml 1460 ml Balance 100 ml 370 ml 419 ml Exam Respiratory: normal air movement Cardiovascular: nl pulses, regular rate and rhythm Gastrointestinal: non-tender, soft Extremities: No calf tenderness, No clubbing, No cyanosis, No edema, No normal pulses, No other, No palpable cord, No pitting pedal edema, No tenderness Results Result Diagram: 11/25/16 0507 11/25/16 0507 Results 24 hrs Laboratory Tests Test 11/24/16 17:26 11/24/16 21:45 11/24/16 22:55 11/25/16 01:42 Bedside Glucose 92 146 129 Body Fluid Type Body Fluid Amylase < 30 Test 11/25/16 05:07 11/25/16 05:49 11/25/16 08:00 11/25/16 11:47 White Blood Count 9.4 Red Blood Count 3.59 L Hemoglobin 10.5 L Hematocrit 33.2 L Mean Corpuscular Volume 92.5 Mean Corpuscular Hemoglobin 29.2 Mean Corpuscular Hemoglobin Concent 31.6 L Red Cell Distribution Width 16.7 H Platelet Count 418 #H Mean Platelet Volume 9.8 Neutrophils % 58.6 Lymphocytes % 17.9 Monocytes % 17.1 H Eosinophils % 4.0 Basophils % 1.0 Nucleated Red Blood Cells % 0.0 Neutrophils # 5.5 Lymphocytes # 1.7 Monocytes # 1.6 H Eosinophils # 0.4 Basophils # 0.1 Nucleated Red Blood Cells # 0.0 Sodium Level 141 Potassium Level 3.4 L Chloride Level 105 Carbon Dioxide Level 31 Anion Gap 8 Blood Urea Nitrogen 4 L Creatinine 0.77 Glucose Level 125 Calcium Level 7.2 L Phosphorus Level 2.8 Magnesium Level 1.6 L Albumin 1.8 L Bedside Glucose 122 112 144 Medications Medications Current Medications Ondansetron HCl (Zofran Tab) 4 mg Q6H PRN PO NAUSEA AND/OR VOMITING Last administered on 11/18/16 08:09; Admin Dose 4 MG; Start 11/09/16 at 02:00 Metoclopramide HCl (Reglan) 10 mg Q6H PRN IV NAUSEA AND/OR VOMITING Last administered on 11/16/16 21:15; Admin Dose 10 MG; Start 11/09/16 at 02:00 Acetaminophen (Tylenol Tab) 650 mg Q6H PRN PO PAIN LEVEL 1-3 OR FEVER; Start at 02:00 Acetaminophen/ Hydrocodone Bitart ([place] (5/325)) 1 tab Q6H PRN PO MODERATE PAIN LEVEL 4-6 Last administered on 11/16/16 11:27; Admin Dose 1 TAB; Start 11/09/16 at 02:00 Acetaminophen/ Hydrocodone Bitart 2 tab 2 tab Q6H PRN PO SEVERE PAIN LEVEL 7- 10 Last administered on 11/18/16 08:04; Admin Dose 2 TAB; Start 11/09/16 at 02: 00 Sodium Chloride (NS) 250 ml @ 250 mls/hr PRN PRN IV SBP <80 Last administered on 11/11/16 00:52; Admin Dose 250 MLS/HR; Start 11/10/16 at 17:30 Lorazepam (Ativan) 1 mg Q4H PRN IV ANXIETY Last administered on 11/22/16 23:11 ; Admin Dose 0.5 MG; Start 11/14/16 at 23:30 Al Hydrox/Mg Hydrox/Simethicone (Mag-Al Plus) 30 ml Q6H PRN PO GASTROINTESTINAL UPSET Last administered on 11/16/16 21:15; Admin Dose 30 ML; Start 11/16/16 at 21:30 Diagnostic Test (Pha) (Accu-Chek) 1 ea 02 XX Last administered on 11/21/16 01: 26; Admin Dose 1 EA; Start 11/18/16 at 02:00 Hydromorphone HCl (Dilaudid) 1 mg Q2HWA PRN IV PAIN Last administered on 07:54; Admin Dose 1 MG; Start 11/18/16 at 13:30 Ondansetron HCl (Zofran Inj) 4 mg Q6H PRN IV NAUSEA AND/OR VOMITING Last administered on 11/23/16 03:56; Admin Dose 4 MG; Start 11/18/16 at 14:00 Pantoprazole 40 mg 40 mg BID@06,18 IV Last administered on 11/25/16 05:47; Admin Dose 40 MG; Start 11/20/16 at 18:00 Metronidazole 100 ml @ 100 mls/hr Q8 IVPB Last administered on 11/25/16 13:37 ; Admin Dose 100 MLS/HR; Start 11/20/16 at 22:00 Piperacillin Sod/ Tazobactam Sod (Zosyn 3.375gm/ 100 ml (Pmx)) 100 ml @ 200 mls /hr Q6 IVPB Last administered on 11/25/16 12:07; Admin Dose 200 MLS/HR; Start 11/21/16 at 00:00 Morphine Sulfate (morphine) 2 mg Q4H PRN IV pain Last administered on 03:57; Admin Dose 2 MG; Start 11/21/16 at 10:30 Phenol (Cepastat Lozenge) 1 lozenge Q1H PRN MT throat irritation Last administered on 11/24/16 20:38; Admin Dose 1 LOZENGE; Start 11/21/16 at 10:30 Miscellaneous Information 1 ea NOTE XX ; Start 11/21/16 at 12:00 Glucose (Glutose) 15 gm Q15M PRN PO DECREASED GLUCOSE; Start 11/21/16 at 12:00 Glucose (Glutose) 22.5 gm Q15M PRN PO DECREASED GLUCOSE; Start 11/21/16 at 12: 00 Dextrose (D50w Syringe) 25 ml Q15M PRN IV DECREASED GLUCOSE Last administered on 11/21/16 11:45; Admin Dose 25 ML; Start 11/21/16 at 12:00 Dextrose (D50w Syringe) 50 ml Q15M PRN IV DECREASED GLUCOSE; Start 11/21/16 at 12:00 Glucagon (Glucagen) 1 mg Q15M PRN IM DECREASED GLUCOSE; Start 11/21/16 at 12:00 Glucose (Glutose) 15 gm Q15M PRN BUCCAL DECREASED GLUCOSE; Start 11/21/16 at 12 :00 Furosemide (Lasix) 20 mg DAILY IV Last administered on 11/25/16 10:28; Admin Dose 20 MG; Start 11/21/16 at 12:30 Octreotide Acetate (Sandostatin) 100 mcg TID SC Last administered on 11/25/16 09:04; Admin Dose 100 MCG; Start 11/23/16 at 09:00 Ketorolac Tromethamine 15 mg 15 mg Q6 IV Last administered on 11/25/16 12:07; Admin Dose 15 MG; Start 11/24/16 at 12:00; Stop 11/27/16 at 11:59 Potassium Chloride/Dextrose/ Sod Cl (D5-NS + KCl 20 Meq) 1,000 ml @ 75 mls/hr [id number] IV Last administered on 11/25/16 02:59; Admin Dose 75 MLS/HR; Start at 14:00 Insulin Aspart (Novolog Insulin Pen) (Adult SC Insulin - Mild Algorithm)... Q4 SC Last administered on 11/25/16 12:15; Admin Dose 1 UNIT; Start 11/24/16 at 17:00 Miscellaneous Information 1 ea 1 ea NOTE XX ; Start 11/24/16 at 14:00 Total Parenteral Nutrition 1,000 ml @ 40 mls/hr Q24H IV Last administered on 19:01; Admin Dose 40 MLS/HR; Start 11/24/16 at 17:00 Fat Emulsion Intravenous 250 ml @ 10.4 mls/hr Q24H IV Last administered on 19:02; Admin Dose 10.4 MLS/HR; Start 11/24/16 at 17:00 Magnesium Sulfate (Magnesium Sulfate 2 Gm/50 ml) 50 ml @ 25 mls/hr ONCE ONCE IVPB ; Start 11/25/16 at 13:33; Stop 11/25/16 at 15:32 DILLON MARTÍNEZ MD Nov 25, 2016 13:51
[2016-11-25] MEDS: TPN 1,000 ML IV SCH ×2 (17:00→20:08)
[2016-11-25] MEDS: INSULIN ASPART [NOVOLOG] 3 ML PEN SC SCH (18:00)
[2016-11-25] MEDS: FAT EMULSION 20% 250 ML IV SCH (18:03)
[2016-11-25 19:46] VITALS: BP 125/71; RESP 18
[2016-11-26] MEDS: KETOROLAC 15 MG INJ IV SCH ×5 (00:15→23:18)
[2016-11-26] MEDS: ACCU-CHEK XX SCH ×4 (00:16→17:55)
[2016-11-26] MEDS: PIPER-TAZO 3.375 GM IV (PMX) 100 ML IVPB SCH ×5 (00:16→17:55)
[2016-11-26] MEDS: ALBUTEROL 18 GM INHALER INH SCH ×4 (02:00→20:00)
[2016-11-26] MEDS: HYDROmorphONE 1 MG/ML SYG IV PRN ×2 (04:48→14:27)
[2016-11-26] MEDS: PANTOPRAZOLE 40 MG INJ IV SCH ×2 (05:43→17:49)
[2016-11-26] MEDS: metroNIDAZOLE 500 MG/NS (PMX) 100 ML IVPB SCH ×3 (05:44→23:19)
[2016-11-26] MEDS: INSULIN ASPART [NOVOLOG] 3 ML PEN SC SCH ×4 (05:49→17:55)
[2016-11-26 05:54] LABS: ADD SCAN DIFF NO
[2016-11-26 06:27] LABS: POTASSIUM 3.3 mmol/L (3.5-5.1)
[2016-11-26 06:29] LABS: CREATININE 0.69 mg/dl (0.44-1.00)
[2016-11-26 06:30] LABS: CALCIUM 7.3 mg/dl (8.4-10.2); PHOSPHORUS 2.6 mg/dl (2.5-4.9)
[2016-11-26 08:20] VITALS: BP 122/73; RESP 15
[2016-11-26] MEDS: FUROSEMIDE 20 MG INJ IV SCH (09:12)
[2016-11-26] MEDS: OCTREOTIDE 100 MCG INJ SC SCH ×3 (09:12→21:23)
[2016-11-26] MEDS: ONDANSETRON 4 MG INJ IV PRN (09:30)
[2016-11-26 09:45] LABS: BASOPHIL # 0.1 10^3/ul (0.0-0.1); BASOPHILS % 0.8 % (0.0-2.0); EOSINOPHILS # 0.7 10^3/ul (0.0-0.5); EOSINOPHILS % 5.3 % (0.0-7.0); HEMATOCRIT 36.1 % (37.0-47.0); HEMOGLOBIN 11.3 g/dl (12.0-16.0); LYMPHOCYTES # 2.2 10^3/ul (0.8-2.9); MEAN CORPUSCULAR HEMOGLOBIN 29.3 pg (29.0-33.0); MEAN CORPUSCULAR HGB CONC 31.3 g/dl (32.0-37.0); MEAN CORPUSCULAR VOLUME 93.5 fl (82.0-101.0); MEAN PLATELET VOLUME 10.3 fl (7.4-10.4); MONOCYTE # 1.5 10^3/ul (0.3-0.9); NEUTROPHIL # 7.7 10^3/ul (1.6-7.5); NEUTROPHILS % 62.6 % (39.0-77.0); PLATELET COUNT 543 10^3/UL (140-415); RED BLOOD COUNT 3.86 10^6/ul (4.20-5.40); RED CELL DISTRIBUTION WIDTH 17.4 % (11.5-14.5); WHITE BLOOD COUNT 12.3 10^3/ul (4.8-10.8)
--- NOTE | 2016-11-26 10:49 | PN ---
Date/Time of Note Date/Time of Note DATE: 11/26/16 TIME: 10:47 Assessment/Plan VTE Prophylaxis VTE Prophylaxis Intervention: SCD's Lines/Catheters IV Catheter Type (from [facility]): Central Line Central line still needed: Yes Urinary Cath still in place: Yes Reason Cath still needed: other (indicate) Assessment/Plan Assessment/Plan 1. Newly diagnosed Metastatic Cancer, most likely of Ovarian origin, Stage IIIc * S/p Extended hysterectomy with bilateral salpingo-oophorectomy, Bilateral ureteral dissection with repositioning, Splenectomy with distal pancreatectomy, Omentectomy with cytoreduction, Pelvic and aortic lymph node dissection and Diaphragm stripping 2. S/p shock likely 2/2 volume depletion from third spacing with probable component of sepsis : probably from PNA: ?resolved 3. Malignant Ascites - s/p paracentesis on admission and during surgery 4. S/p Vent dependent Resp Failure - s/p successful Extubation 5. Diuretic induced renal insufficiency: resolved 5. Mild Pancreatitis: resolved 6. Hx of Hypertension: issue has been Hypotension from shock. Now BP stable off pressors 7. Normocytic Anemia 2/2 Iron deficiency: s/p IV iron replacement 8. TPN therapy 9. Anasarca likely 2/2 hypoalbuminemia PLAN: * Continue post op care per [facility] onc * Continue TPN and begin weaning once patient is tolerating diet * replace electrolytes and ngive gentle albumin infusion to help with edema * PT to mobilize patient * Continue abx for a total of 2weeks at least * Plan is for commencement of chemo inhouse once cleared by surgery * Continue to monitor labs and vitals PROPHYLAXIS: SCDs/ PPI Subjective 24 Hr Interval Summary Free Text/Dictation swelling in both hands and feet Started on clear liquid diet Exam/Review of Systems Vital Signs Vitals Vital Signs Date Time Temp Pulse Resp B/P Pulse Ox O2 Delivery O2 Flow Rate FiO2 11/26/16 08:20 97.9 72 15 122/73 100 11/25/16 20:56 2.0 11/25/16 20:35 Nasal Cannula Intake and Output 11/25/16 11/25/16 11/26/16 15:00 23:00 07:00 Intake Total 100 ml 1600 ml 1509.4 ml Output Total 1420 ml 1100 ml Balance 100 ml 180 ml 409.4 ml Exam Constitutional: alert, oriented Psych: nl mood/affect Head: normocephalic Eyes: PERRL, No icteric ENMT: other (NGT clamped) Respiratory: clear to auscultation, diminished breath sounds Cardiovascular: regular rate and rhythm, No murmurs/extra sounds Gastrointestinal: bowel sounds (hypoactive), distended, surgical scars ( covered in dressing, drain in place) Genitourinary - Female: other (palma clamped), No nl external genitalia (mild vulval edema) Extremities: No edema Neurological: nl mental status Results Result Diagram: 11/26/16 0508 11/26/16 0508 Results 24 hrs Laboratory Tests Test 11/25/16 11:47 11/25/16 18:01 11/26/16 00:17 11/26/16 05:08 Bedside Glucose 144 128 118 White Blood Count 12.3 #H Red Blood Count 3.86 L Hemoglobin 11.3 L Hematocrit 36.1 L Mean Corpuscular Volume 93.5 Mean Corpuscular Hemoglobin 29.3 Mean Corpuscular Hemoglobin Concent 31.3 L Red Cell Distribution Width 17.4 H Platelet Count 543 #H Mean Platelet Volume 10.3 Neutrophils % 62.6 Lymphocytes % 18.0 Monocytes % 12.0 H Eosinophils % 5.3 Basophils % 0.8 Nucleated Red Blood Cells % 0.0 Neutrophils # 7.7 H Lymphocytes # 2.2 Monocytes # 1.5 H Eosinophils # 0.7 H Basophils # 0.1 Nucleated Red Blood Cells # 0.0 Sodium Level 140 Potassium Level 3.3 L Chloride Level 105 Carbon Dioxide Level 28 Anion Gap 10 Blood Urea Nitrogen 7 Creatinine 0.69 Glucose Level 123 Calcium Level 7.3 L Phosphorus Level 2.6 Albumin 2.0 L Test 11/26/16 05:48 Bedside Glucose 136 Medications Medications Current Medications Ondansetron HCl (Zofran Tab) 4 mg Q6H PRN PO NAUSEA AND/OR VOMITING Last administered on 11/18/16 08:09; Admin Dose 4 MG; Start 11/09/16 at 02:00 Metoclopramide HCl (Reglan) 10 mg Q6H PRN IV NAUSEA AND/OR VOMITING Last administered on 11/16/16 21:15; Admin Dose 10 MG; Start 11/09/16 at 02:00 Acetaminophen (Tylenol Tab) 650 mg Q6H PRN PO PAIN LEVEL 1-3 OR FEVER; Start at 02:00 Acetaminophen/ Hydrocodone Bitart ([place] (5/325)) 1 tab Q6H PRN PO MODERATE PAIN LEVEL 4-6 Last administered on 11/16/16 11:27; Admin Dose 1 TAB; Start 11/09/16 at 02:00 Acetaminophen/ Hydrocodone Bitart 2 tab 2 tab Q6H PRN PO SEVERE PAIN LEVEL 7- 10 Last administered on 11/18/16 08:04; Admin Dose 2 TAB; Start 11/09/16 at 02: 00 Sodium Chloride (NS) 250 ml @ 250 mls/hr PRN PRN IV SBP <80 Last administered on 11/11/16 00:52; Admin Dose 250 MLS/HR; Start 11/10/16 at 17:30 Lorazepam (Ativan) 1 mg Q4H PRN IV ANXIETY Last administered on 11/22/16 23:11 ; Admin Dose 0.5 MG; Start 11/14/16 at 23:30 Al Hydrox/Mg Hydrox/Simethicone (Mag-Al Plus) 30 ml Q6H PRN PO GASTROINTESTINAL UPSET Last administered on 11/16/16 21:15; Admin Dose 30 ML; Start 11/16/16 at 21:30 Hydromorphone HCl (Dilaudid) 1 mg Q2HWA PRN IV PAIN Last administered on 04:48; Admin Dose 1 MG; Start 11/18/16 at 13:30 Ondansetron HCl (Zofran Inj) 4 mg Q6H PRN IV NAUSEA AND/OR VOMITING Last administered on 11/26/16 09:30; Admin Dose 4 MG; Start 11/18/16 at 14:00 Pantoprazole 40 mg 40 mg BID@06,18 IV Last administered on 11/26/16 05:43; Admin Dose 40 MG; Start 11/20/16 at 18:00 Metronidazole 100 ml @ 100 mls/hr Q8 IVPB Last administered on 11/26/16 05:44 ; Admin Dose 100 MLS/HR; Start 11/20/16 at 22:00 Piperacillin Sod/ Tazobactam Sod (Zosyn 3.375gm/ 100 ml (Pmx)) 100 ml @ 200 mls /hr Q6 IVPB Last administered on 11/26/16 07:32; Admin Dose 200 MLS/HR; Start 11/21/16 at 00:00 Morphine Sulfate (morphine) 2 mg Q4H PRN IV pain Last administered on 03:57; Admin Dose 2 MG; Start 11/21/16 at 10:30 Phenol (Cepastat Lozenge) 1 lozenge Q1H PRN MT throat irritation Last administered on 11/24/16 20:38; Admin Dose 1 LOZENGE; Start 11/21/16 at 10:30 Miscellaneous Information 1 ea NOTE XX ; Start 11/21/16 at 12:00 Glucose (Glutose) 15 gm Q15M PRN PO DECREASED GLUCOSE; Start 11/21/16 at 12:00 Glucose (Glutose) 22.5 gm Q15M PRN PO DECREASED GLUCOSE; Start 11/21/16 at 12: 00 Dextrose (D50w Syringe) 25 ml Q15M PRN IV DECREASED GLUCOSE Last administered on 11/21/16 11:45; Admin Dose 25 ML; Start 11/21/16 at 12:00 Dextrose (D50w Syringe) 50 ml Q15M PRN IV DECREASED GLUCOSE; Start 11/21/16 at 12:00 Glucagon (Glucagen) 1 mg Q15M PRN IM DECREASED GLUCOSE; Start 11/21/16 at 12:00 Glucose (Glutose) 15 gm Q15M PRN BUCCAL DECREASED GLUCOSE; Start 11/21/16 at 12 :00 Furosemide (Lasix) 20 mg DAILY IV Last administered on 11/26/16 09:12; Admin Dose 20 MG; Start 11/21/16 at 12:30 Octreotide Acetate (Sandostatin) 100 mcg TID SC Last administered on 11/26/16 09:12; Admin Dose 100 MCG; Start 11/23/16 at 09:00 Ketorolac Tromethamine 15 mg 15 mg Q6 IV Last administered on 11/26/16 05:44; Admin Dose 15 MG; Start 11/24/16 at 12:00; Stop 11/27/16 at 11:59 Potassium Chloride/Dextrose/ Sod Cl (D5-NS + KCl 20 Meq) 1,000 ml @ 75 mls/hr [id number] IV Last administered on 11/25/16 22:00; Admin Dose 75 MLS/HR; Start 4 /21/17 at 14:00 Miscellaneous Information 1 ea 1 ea NOTE XX ; Start 11/24/16 at 14:00 Total Parenteral Nutrition 1,000 ml @ 40 mls/hr Q24H IV Last administered on 20:08; Admin Dose 40 MLS/HR; Start 11/24/16 at 17:00 Fat Emulsion Intravenous (Liposyn Ii 20%) 250 ml @ 10.4 mls/hr Q24H IV Last administered on 11/25/16 18:03; Admin Dose 10.4 MLS/HR; Start 11/24/16 at 17:00 Diagnostic Test (Pha) (Accu-Chek) 1 ea Q6H XX Last administered on 11/26/16 05 :44; Admin Dose 1 EA; Start 11/25/16 at 18:00 Insulin Aspart (Novolog Insulin Pen) (Adult SC Insulin - Mild Algorithm)... Q6H SC ; Start 11/25/16 at 18:00 JYOTHI BENAVIDES Nov 26, 2016 10:49
[2016-11-26] MEDS ORDERED: POTASSIUM CHLORIDE 20 MEQ in SOD CHLORIDE 0.9% 100 ML IVPB ONE (12:00)
[2016-11-26] MEDS ORDERED: TPN 1,000 ML IV SCH ×2 (12:00→18:00)
[2016-11-26] MEDS: ALBUMIN HUMAN 25% 50 ML IV SCH ×2 (14:18→23:19)
--- NOTE | 2016-11-26 15:39 | PN ---
Date/Time of Note Date/Time of Note DATE: 11/26/16 TIME: 15:36 Assessment/Plan VTE Prophylaxis VTE Prophylaxis Intervention: ambulation, SCD's Lines/Catheters IV Catheter Type (from Nrs): Central Line Central line still needed: Yes Urinary Cath still in place: Yes Reason Cath still needed: urinary retention Assessment/Plan Chief Complaint/Hosp Course Probable ovarian cancer vs peritoneal Problems: Assessment/Plan A- improving but marginally romina liq P- maintain current diet and mobilize and diminish narcotics Subjective 24 Hr Interval Summary Free Text/Dictation Feels better and OOB slightly more but vomited x1 Exam/Review of Systems Vital Signs Vitals Vital Signs Date Time Temp Pulse Resp B/P Pulse Ox O2 Delivery O2 Flow Rate FiO2 11/26/16 08:50 Nasal Cannula 2.0 11/26/16 08:20 97.9 72 15 122/73 100 Intake and Output 11/25/16 11/25/16 11/26/16 15:00 23:00 07:00 Intake Total 100 ml 1600 ml 1509.4 ml Output Total 1420 ml 1100 ml Balance 100 ml 180 ml 409.4 ml Exam Cardiovascular: nl pulses, regular rate and rhythm Gastrointestinal: non-tender, soft Extremities: normal pulses Results Result Diagram: 11/26/16 0508 11/26/16 0508 Results 24 hrs Laboratory Tests Test 11/25/16 18:01 11/26/16 00:17 11/26/16 05:08 11/26/16 05:48 Bedside Glucose 128 118 136 White Blood Count 12.3 #H Red Blood Count 3.86 L Hemoglobin 11.3 L Hematocrit 36.1 L Mean Corpuscular Volume 93.5 Mean Corpuscular Hemoglobin 29.3 Mean Corpuscular Hemoglobin Concent 31.3 L Red Cell Distribution Width 17.4 H Platelet Count 543 #H Mean Platelet Volume 10.3 Neutrophils % 62.6 Lymphocytes % 18.0 Monocytes % 12.0 H Eosinophils % 5.3 Basophils % 0.8 Nucleated Red Blood Cells % 0.0 Neutrophils # 7.7 H Lymphocytes # 2.2 Monocytes # 1.5 H Eosinophils # 0.7 H Basophils # 0.1 Nucleated Red Blood Cells # 0.0 Sodium Level 140 Potassium Level 3.3 L Chloride Level 105 Carbon Dioxide Level 28 Anion Gap 10 Blood Urea Nitrogen 7 Creatinine 0.69 Glucose Level 123 Calcium Level 7.3 L Phosphorus Level 2.6 Albumin 2.0 L Test 11/26/16 12:22 Bedside Glucose 153 Medications Medications Current Medications Ondansetron HCl (Zofran Tab) 4 mg Q6H PRN PO NAUSEA AND/OR VOMITING Last administered on 11/18/16 08:09; Admin Dose 4 MG; Start 11/09/16 at 02:00 Metoclopramide HCl (Reglan) 10 mg Q6H PRN IV NAUSEA AND/OR VOMITING Last administered on 11/16/16 21:15; Admin Dose 10 MG; Start 11/09/16 at 02:00 Acetaminophen (Tylenol Tab) 650 mg Q6H PRN PO PAIN LEVEL 1-3 OR FEVER; Start at 02:00 Acetaminophen/ Hydrocodone Bitart ([place] (5/325)) 1 tab Q6H PRN PO MODERATE PAIN LEVEL 4-6 Last administered on 11/16/16 11:27; Admin Dose 1 TAB; Start 11/09/16 at 02:00 Acetaminophen/ Hydrocodone Bitart 2 tab 2 tab Q6H PRN PO SEVERE PAIN LEVEL 7- 10 Last administered on 11/18/16 08:04; Admin Dose 2 TAB; Start 11/09/16 at 02: 00 Sodium Chloride (NS) 250 ml @ 250 mls/hr PRN PRN IV SBP <80 Last administered on 11/11/16 00:52; Admin Dose 250 MLS/HR; Start 11/10/16 at 17:30 Lorazepam (Ativan) 1 mg Q4H PRN IV ANXIETY Last administered on 11/22/16 23:11 ; Admin Dose 0.5 MG; Start 11/14/16 at 23:30 Al Hydrox/Mg Hydrox/Simethicone (Mag-Al Plus) 30 ml Q6H PRN PO GASTROINTESTINAL UPSET Last administered on 11/16/16 21:15; Admin Dose 30 ML; Start 11/16/16 at 21:30 Hydromorphone HCl (Dilaudid) 1 mg Q2HWA PRN IV PAIN Last administered on 14:27; Admin Dose 1 MG; Start 11/18/16 at 13:30 Ondansetron HCl (Zofran Inj) 4 mg Q6H PRN IV NAUSEA AND/OR VOMITING Last administered on 11/26/16 09:30; Admin Dose 4 MG; Start 11/18/16 at 14:00 Pantoprazole 40 mg 40 mg BID@06,18 IV Last administered on 11/26/16 05:43; Admin Dose 40 MG; Start 11/20/16 at 18:00 Metronidazole 100 ml @ 100 mls/hr Q8 IVPB Last administered on 11/26/16 14:16 ; Admin Dose 100 MLS/HR; Start 11/20/16 at 22:00 Piperacillin Sod/ Tazobactam Sod (Zosyn 3.375gm/ 100 ml (Pmx)) 100 ml @ 200 mls /hr Q6 IVPB Last administered on 11/26/16 12:21; Admin Dose 200 MLS/HR; Start 11/21/16 at 00:00 Morphine Sulfate (morphine) 2 mg Q4H PRN IV pain Last administered on 03:57; Admin Dose 2 MG; Start 11/21/16 at 10:30 Phenol (Cepastat Lozenge) 1 lozenge Q1H PRN MT throat irritation Last administered on 11/24/16 20:38; Admin Dose 1 LOZENGE; Start 11/21/16 at 10:30 Miscellaneous Information 1 ea NOTE XX ; Start 11/21/16 at 12:00 Glucose (Glutose) 15 gm Q15M PRN PO DECREASED GLUCOSE; Start 11/21/16 at 12:00 Glucose (Glutose) 22.5 gm Q15M PRN PO DECREASED GLUCOSE; Start 11/21/16 at 12: 00 Dextrose (D50w Syringe) 25 ml Q15M PRN IV DECREASED GLUCOSE Last administered on 11/21/16 11:45; Admin Dose 25 ML; Start 11/21/16 at 12:00 Dextrose (D50w Syringe) 50 ml Q15M PRN IV DECREASED GLUCOSE; Start 11/21/16 at 12:00 Glucagon (Glucagen) 1 mg Q15M PRN IM DECREASED GLUCOSE; Start 11/21/16 at 12:00 Glucose (Glutose) 15 gm Q15M PRN BUCCAL DECREASED GLUCOSE; Start 11/21/16 at 12 :00 Furosemide (Lasix) 20 mg DAILY IV Last administered on 11/26/16 09:12; Admin Dose 20 MG; Start 11/21/16 at 12:30 Octreotide Acetate (Sandostatin) 100 mcg TID SC Last administered on 11/26/16 09:12; Admin Dose 100 MCG; Start 11/23/16 at 09:00 Ketorolac Tromethamine (Toradol) 15 mg Q6 IV Last administered on 11/26/16 12: 21; Admin Dose 15 MG; Start 11/24/16 at 12:00; Stop 11/27/16 at 11:59 Miscellaneous Information 1 ea NOTE XX ; Start 11/24/16 at 14:00 Diagnostic Test (Pha) (Accu-Chek) 1 ea Q6H XX Last administered on 11/26/16 05 :44; Admin Dose 1 EA; Start 11/25/16 at 18:00 Insulin Aspart (Adult SC Insulin - Mild Algorithm)... Q6H SC Last administered on 11/26/16 12:34; Admin Dose 1 UNIT; Start 11/25/16 at 18:00 Total Parenteral Nutrition 1,000 ml @ 40 mls/hr Q24H IV ; Start 11/26/16 at 12: 00 Albumin Human (Albumin Human 25%) 50 ml @ 100 mls/hr Q8H IV Last administered on 11/26/16 14:18; Admin Dose 100 MLS/HR; Start 11/26/16 at 13:00; Stop at 05:29 DILLON MARTÍNEZ MD Nov 26, 2016 15:39
[2016-11-26 19:34] VITALS: BP 140/79; RESP 19
[2016-11-26] MEDS: LORAZEPAM 2 MG INJ IV PRN (21:25)
--- NOTE | 2016-11-26 23:38 | RADRPT ---
PROCEDURE: Portable chest x-ray. CLINICAL INDICATION: Catheter placement TECHNIQUE: Portable AP view of the chest. COMPARISON: 11/21/2016. FINDINGS: A right central venous catheter terminates in the SVC. There is hazy opacification of the lung field s, most prominent inferiorly. The cardiac silhouette is mildly enlarged. There are aortic calcifica tions. There is no pneumothorax. IMPRESSION: 1. Right central venous catheter tip in the SVC. 2. Hazy opacification of the lung ruby, most prominent inferiorly. This probably represent a com bination of layering pleural effusions, edema, and atelectasis, although a superimposed pneumonia ca nnot be excluded. 3. Mildly enlarged cardiac silhouette and aortic atherosclerosis. RPTAT: HTAR .Rufus Cunningham MD, Date Time Electronically viewed and signed by .Rufus Cunningham MD, on 11/26/2016 23:38 .R/
[2016-11-27] MEDS: PIPER-TAZO 3.375 GM IV (PMX) 100 ML IVPB SCH ×5 (00:38→23:50)
[2016-11-27] MEDS: ACCU-CHEK XX SCH ×5 (00:38→23:50)
[2016-11-27] MEDS: ALBUTEROL 18 GM INHALER INH SCH ×4 (02:56→21:28)
[2016-11-27] MEDS: HYDROCODONE/APAP (5/325) TAB PO PRN (03:33)
[2016-11-27 05:10] LABS: ADD SCAN DIFF NO
[2016-11-27 05:23] LABS: BASOPHIL # 0.1 10^3/ul (0.0-0.1); BASOPHILS % 0.6 % (0.0-2.0); EOSINOPHILS # 0.4 10^3/ul (0.0-0.5); EOSINOPHILS % 3.6 % (0.0-7.0); HEMATOCRIT 30.9 % (37.0-47.0); HEMOGLOBIN 9.8 g/dl (12.0-16.0); LYMPHOCYTES # 1.2 10^3/ul (0.8-2.9); LYMPHOCYTES % 10.6 % (15.0-51.0); MEAN CORPUSCULAR HEMOGLOBIN 29.3 pg (29.0-33.0); MEAN CORPUSCULAR HGB CONC 31.7 g/dl (32.0-37.0); MEAN CORPUSCULAR VOLUME 92.2 fl (82.0-101.0); MEAN PLATELET VOLUME 9.8 fl (7.4-10.4); MONOCYTE # 1.2 10^3/ul (0.3-0.9); MONOCYTES % 11.1 % (0.0-11.0); NEUTROPHILS % 73.2 % (39.0-77.0); PLATELET COUNT 566 10^3/UL (140-415); RED BLOOD COUNT 3.35 10^6/ul (4.20-5.40); RED CELL DISTRIBUTION WIDTH 17.3 % (11.5-14.5)
[2016-11-27 05:30] LABS: POTASSIUM 3.5 mmol/L (3.5-5.1)
[2016-11-27 05:33] LABS: CALCIUM 7.4 mg/dl (8.4-10.2); CREATININE 0.66 mg/dl (0.44-1.00); PHOSPHORUS 2.6 mg/dl (2.5-4.9)
[2016-11-27 05:35] LABS: POTASSIUM 3.9 mmol/L (3.5-5.1)
[2016-11-27 05:37] LABS: CREATININE 0.63 mg/dl (0.44-1.00)
[2016-11-27 05:38] LABS: CALCIUM 7.6 mg/dl (8.4-10.2)
[2016-11-27 05:39] LABS: MAGNESIUM 1.8 mg/dl (1.7-2.5)
[2016-11-27] MEDS: PANTOPRAZOLE 40 MG INJ IV SCH ×2 (05:50→18:07)
[2016-11-27] MEDS: KETOROLAC 15 MG INJ IV SCH (05:50)
[2016-11-27] MEDS: INSULIN ASPART [NOVOLOG] 3 ML PEN SC SCH ×5 (05:56→23:44)
[2016-11-27] MEDS: ALBUMIN HUMAN 25% 50 ML IV SCH (06:39)
[2016-11-27] MEDS: metroNIDAZOLE 500 MG/NS (PMX) 100 ML IVPB SCH ×3 (06:42→21:28)
[2016-11-27 07:52] VITALS: BP 114/61; RESP 17
[2016-11-27 08:39] LABS: IRON 11 ug/dl (35-150)
[2016-11-27 08:48] LABS: TOTAL IRON BINDING CAPACITY 139 ug/dl (241-421)
[2016-11-27] MEDS: FUROSEMIDE 20 MG INJ IV SCH (08:56)
[2016-11-27] MEDS: OCTREOTIDE 100 MCG INJ SC SCH ×2 (08:56→12:54)
[2016-11-27] MEDS: HYDROmorphONE 1 MG/ML SYG IV PRN ×2 (08:57→15:31)
[2016-11-27 10:01] LABS: ADD UMIC YES; URINE BILIRUBIN (Dip) NEGATIVE (NEGATIVE); URINE BLOOD (Dip) 1+ (NEGATIVE); URINE COLOR YELLOW (YELLOW); URINE GLUCOSE (Dip) NEGATIVE (NEGATIVE); URINE KETONES (Dip) NEGATIVE (NEGATIVE); URINE LEUKOCYTE ESTERASE (Dip) NEGATIVE (NEGATIVE); URINE NITRITE (Dip) POSITIVE (NEGATIVE); URINE TOTAL PROTEIN (Dip) 1+ (NEGATIVE); URINE UROBILINOGEN (Dip) 0.2 E.U./dL (0.1-1.0)
[2016-11-27 10:36] LABS: BACTERIA,URINE FEW
--- NOTE | 2016-11-27 11:49 | PN ---
Date/Time of Note Date/Time of Note DATE: 11/27/16 TIME: 11:45 Assessment/Plan VTE Prophylaxis VTE Prophylaxis Intervention: SCD's Lines/Catheters IV Catheter Type (from Nrs): Central Line Central line still needed: Yes Urinary Cath still in place: Yes Reason Cath still needed: urinary retention Assessment/Plan Chief Complaint/Hosp Course Assessment/Plan: 56 F with: 1. 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 - Continue post op care per [facility] onc - Plan is for commencement of chemo inhouse once cleared by surgery 2. S/p shock likely 2/2 volume depletion from third spacing with probable component of sepsis : probably from PNA: ?resolved - Continue abx for a total of 2weeks at least 3. Malignant Ascites - s/p paracentesis on admission and during surgery 4. S/p Vent dependent Resp Failure - s/p successful Extubation 5. Diuretic induced renal insufficiency: resolved 5. Mild Pancreatitis: resolved 6. Hx of Hypertension: issue has been Hypotension from shock. Now BP stable off pressors - monitor 7. Normocytic Anemia 2/2 Iron deficiency: s/p IV iron replacement 8. diet - Continue TPN and begin weaning once patient is tolerating diet 9. Anasarca likely 2/2 hypoalbuminemia PROPHYLAXIS: SCDs/ PPI Problems: Subjective 24 Hr Interval Summary Free Text/Dictation Pt working with PT, no acute events overnight. Exam/Review of Systems Vital Signs Vitals Vital Signs Date Time Temp Pulse Resp B/P Pulse Ox O2 Delivery O2 Flow Rate FiO2 11/27/16 08:00 Nasal Cannula 2.0 11/27/16 07:52 98.0 68 17 114/61 94 Intake and Output 11/26/16 11/26/16 11/27/16 15:00 23:00 07:00 Intake Total 150 ml 1067 ml 670 ml Output Total 1500 ml 50 ml Balance 150 ml -433 ml 620 ml Exam Constitutional: alert, oriented Psych: nl mood/affect Head: normocephalic Eyes: PERRL, No icteric ENMT: other (NGT clamped) Respiratory: clear to auscultation, diminished breath sounds Cardiovascular: regular rate and rhythm, No murmurs/extra sounds Gastrointestinal: bowel sounds (hypoactive), distended, surgical scars ( covered in dressing, drain in place) Genitourinary - Female: other (palma clamped), No nl external genitalia (mild vulval edema) Extremities: No edema Neurological: nl mental status Results Result Diagram: 11/27/1642811/27/16428 Results 24 hrs Laboratory Tests Test 11/26/16 12:22 11/26/16 17:47 11/27/16 00:38 11/27/16 04:29 Bedside Glucose 153 119 82 White Blood Count 11.0 H Red Blood Count 3.35 L Hemoglobin 9.8 L Hematocrit 30.9 L Mean Corpuscular Volume 92.2 Mean Corpuscular Hemoglobin 29.3 Mean Corpuscular Hemoglobin Concent 31.7 L Red Cell Distribution Width 17.3 H Platelet Count 566 H Mean Platelet Volume 9.8 Neutrophils % 73.2 Lymphocytes % 10.6 L Monocytes % 11.1 H Eosinophils % 3.6 Basophils % 0.6 Nucleated Red Blood Cells % 0.0 Neutrophils # 8.0 H Lymphocytes # 1.2 Monocytes # 1.2 H Eosinophils # 0.4 Basophils # 0.1 Nucleated Red Blood Cells # 0.0 Sodium Level 138 Potassium Level 3.9 Chloride Level 105 Carbon Dioxide Level 28 Anion Gap 9 Blood Urea Nitrogen 8 Creatinine 0.63 Glucose Level 81 Calcium Level 7.6 L Phosphorus Level 2.6 Magnesium Level 1.8 Iron Level 11 L Total Iron Binding Capacity 139 L Percent Iron Saturation 8 L Ferritin 175.0 Albumin 2.0 L Test 11/27/16 05:55 11/27/16 05:57 Bedside Glucose 94 Urine Color YELLOW Urine Clarity CLEAR Urine pH 5.5 Urine Specific [place] 1.025 Urine Ketones NEGATIVE Urine Nitrite POSITIVE H Urine Bilirubin NEGATIVE Urine Urobilinogen 0.2 E.U./dL Urine Leukocyte Esterase NEGATIVE Urine Microscopic RBC 10-25 Urine Microscopic WBC 2-5 Urine Epithelial Cells MODERATE Urine Bacteria FEW Urine Hemoglobin 1+ H Urine Glucose NEGATIVE Urine Total Protein 1+ H Medications Medications Current Medications Ondansetron HCl (Zofran Tab) 4 mg Q6H PRN PO NAUSEA AND/OR VOMITING Last administered on 11/18/16 08:09; Admin Dose 4 MG; Start 11/09/16 at 02:00 Metoclopramide HCl (Reglan) 10 mg Q6H PRN IV NAUSEA AND/OR VOMITING Last administered on 11/16/16 21:15; Admin Dose 10 MG; Start 11/09/16 at 02:00 Acetaminophen (Tylenol Tab) 650 mg Q6H PRN PO PAIN LEVEL 1-3 OR FEVER; Start at 02:00 Acetaminophen/ Hydrocodone Bitart ([place] (5/325)) 1 tab Q6H PRN PO MODERATE PAIN LEVEL 4-6 Last administered on 11/16/16 11:27; Admin Dose 1 TAB; Start 11/09/16 at 02:00 Acetaminophen/ Hydrocodone Bitart 2 tab 2 tab Q6H PRN PO SEVERE PAIN LEVEL 7- 10 Last administered on 11/27/16 03:33; Admin Dose 2 TAB; Start 11/09/16 at 02: 00 Sodium Chloride (NS) 250 ml @ 250 mls/hr PRN PRN IV SBP <80 Last administered on 11/11/16 00:52; Admin Dose 250 MLS/HR; Start 11/10/16 at 17:30 Lorazepam (Ativan) 1 mg Q4H PRN IV ANXIETY Last administered on 11/26/16 21:25 ; Admin Dose 1 MG; Start 11/14/16 at 23:30 Al Hydrox/Mg Hydrox/Simethicone (Mag-Al Plus) 30 ml Q6H PRN PO GASTROINTESTINAL UPSET Last administered on 11/16/16 21:15; Admin Dose 30 ML; Start 11/16/16 at 21:30 Ondansetron HCl (Zofran Inj) 4 mg Q6H PRN IV NAUSEA AND/OR VOMITING Last administered on 11/26/16 09:30; Admin Dose 4 MG; Start 11/18/16 at 14:00 Pantoprazole 40 mg 40 mg BID@06,18 IV Last administered on 11/27/16 05:50; Admin Dose 40 MG; Start 11/20/16 at 18:00 Metronidazole 100 ml @ 100 mls/hr Q8 IVPB Last administered on 11/27/16 06:42 ; Admin Dose 100 MLS/HR; Start 11/20/16 at 22:00 Piperacillin Sod/ Tazobactam Sod (Zosyn 3.375gm/ 100 ml (Pmx)) 100 ml @ 200 mls /hr Q6 IVPB Last administered on 11/27/16 06:08; Admin Dose 200 MLS/HR; Start 11/21/16 at 00:00 Morphine Sulfate (morphine) 2 mg Q4H PRN IV pain Last administered on 03:57; Admin Dose 2 MG; Start 11/21/16 at 10:30 Phenol (Cepastat Lozenge) 1 lozenge Q1H PRN MT throat irritation Last administered on 11/24/16 20:38; Admin Dose 1 LOZENGE; Start 11/21/16 at 10:30 Miscellaneous Information 1 ea NOTE XX ; Start 11/21/16 at 12:00 Glucose (Glutose) 15 gm Q15M PRN PO DECREASED GLUCOSE; Start 11/21/16 at 12:00 Glucose (Glutose) 22.5 gm Q15M PRN PO DECREASED GLUCOSE; Start 11/21/16 at 12: 00 Dextrose (D50w Syringe) 25 ml Q15M PRN IV DECREASED GLUCOSE Last administered on 11/21/16 11:45; Admin Dose 25 ML; Start 11/21/16 at 12:00 Dextrose (D50w Syringe) 50 ml Q15M PRN IV DECREASED GLUCOSE; Start 11/21/16 at 12:00 Glucagon (Glucagen) 1 mg Q15M PRN IM DECREASED GLUCOSE; Start 11/21/16 at 12:00 Glucose (Glutose) 15 gm Q15M PRN BUCCAL DECREASED GLUCOSE; Start 11/21/16 at 12 :00 Furosemide (Lasix) 20 mg DAILY IV Last administered on 11/27/16 08:56; Admin Dose 20 MG; Start 11/21/16 at 12:30 Ketorolac Tromethamine (Toradol) 15 mg Q6 IV Last administered on 11/27/16 05: 50; Admin Dose 15 MG; Start 11/24/16 at 12:00; Stop 11/27/16 at 11:59 Miscellaneous Information 1 ea NOTE XX ; Start 11/24/16 at 14:00 Diagnostic Test (Pha) (Accu-Chek) 1 ea Q6H XX Last administered on 11/27/16 05 :56; Admin Dose 1 EA; Start 11/25/16 at 18:00 Insulin Aspart (Novolog Insulin Pen) (Adult SC Insulin - Mild Algorithm)... Q6H SC Last administered on 11/26/16 12:34; Admin Dose 1 UNIT; Start 11/25/16 at 18:00 Octreotide Acetate 50 mcg 50 mcg TID SC Last administered on 11/27/16 08:56; Admin Dose 50 MCG; Start 11/26/16 at 21:00 Total Parenteral Nutrition (Tpn) 1,000 ml @ 40 mls/hr Q24H IV Last administered on 11/26/16 18:56; Admin Dose 40 MLS/HR; Start 11/26/16 at 18:00 QUINCY KU Nov 27, 2016 11:49
[2016-11-27] MEDS ORDERED: TPN 1,000 ML IV SCH ×2 (12:46→18:00)
--- NOTE | 2016-11-27 13:01 | CONS ---
Date/Time of Note Date/Time of Note DATE: 11/27/16 TIME: 12:58 Assessment/Plan Assessment/Plan Chief Complaint/Hosp Course 56 yo female with malignant ascites who has since been diagnosed with FIGO stage III ovarian cancer. Surg path reveals an 8.5 cm tumor in right ovary, 1.2 cm tumor in L ovary and 1.5 cm tumor in L fallopian tube. The disease noted to involve the omentum, spleen, uterus, cervix and diaphragm. # ovarian ca, papillary serous , FIGO stage IIIc -once patient is ambulating and tolerating her diet, will need to start chemotherapy in house -will plant to start Carboplatin/ Taxol once patient is cleared by Dr. Garcia. Will likely given in a dose dense fashion. -cont physical therapy -continue to advance diet as tolerated # Anemia - post op and secondary to iron deficiency -transfusion parameter per Dr. Garcia -s/p 3 days of IV iron to help maintain her Hg Approximately 40 min were spent at patient's bedside and in coordination of her care Problems: Consultation Date/Type/Reason Admit Date/Time Nov 09, 2016 at 00:55 Initial Consult Date 11/17/16 Type of Consultation: Oncology Reason for Consultation ovarian cancer Referring Provider: JYOTHI BENAVIDES 24 HR Interval Summary Free Text/Dictation pt minimally tolerating Clear liquid diet. ambulating slowly with physical therapy Exam/Review of Systems Vital Signs Vitals Vital Signs Date Time Temp Pulse Resp B/P Pulse Ox O2 Delivery O2 Flow Rate FiO2 11/27/16 08:00 Nasal Cannula 2.0 11/27/16 07:52 98.0 68 17 114/61 94 Intake and Output 11/26/16 11/26/16 11/27/16 15:00 23:00 07:00 Intake Total 150 ml 1067 ml 670 ml Output Total 1500 ml 50 ml Balance 150 ml -433 ml 620 ml Exam Constitutional: alert, oriented Psych: anxiety, depression Head: normocephalic Eyes: nl conjunctiva ENMT: nl external ears & nose Neck: non-tender, supple Respiratory: clear to auscultation, normal air movement Cardiovascular: regular rate and rhythm Gastrointestinal: surgical scars, tender Musculoskeletal: nl extremities to inspection, nl gait and stance Results Result Diagram: 11/27/16 0429 11/27/169 Results 24 hrs Laboratory Tests Test 11/26/16 17:47 11/27/16 00:38 11/27/16 04:29 11/27/16 05:55 Bedside Glucose 119 82 94 White Blood Count 11.0 H Red Blood Count 3.35 L Hemoglobin 9.8 L Hematocrit 30.9 L Mean Corpuscular Volume 92.2 Mean Corpuscular Hemoglobin 29.3 Mean Corpuscular Hemoglobin Concent 31.7 L Red Cell Distribution Width 17.3 H Platelet Count 566 H Mean Platelet Volume 9.8 Neutrophils % 73.2 Lymphocytes % 10.6 L Monocytes % 11.1 H Eosinophils % 3.6 Basophils % 0.6 Nucleated Red Blood Cells % 0.0 Neutrophils # 8.0 H Lymphocytes # 1.2 Monocytes # 1.2 H Eosinophils # 0.4 Basophils # 0.1 Nucleated Red Blood Cells # 0.0 Sodium Level 138 Potassium Level 3.9 Chloride Level 105 Carbon Dioxide Level 28 Anion Gap 9 Blood Urea Nitrogen 8 Creatinine 0.63 Glucose Level 81 Calcium Level 7.6 L Phosphorus Level 2.6 Magnesium Level 1.8 Iron Level 11 L Total Iron Binding Capacity 139 L Percent Iron Saturation 8 L Ferritin 175.0 Albumin 2.0 L Test 11/27/16 05:57 11/27/16 12:25 Urine Color YELLOW Urine Clarity CLEAR Urine pH 5.5 Urine Specific [place] 1.025 Urine Ketones NEGATIVE Urine Nitrite POSITIVE H Urine Bilirubin NEGATIVE Urine Urobilinogen 0.2 E.U./dL Urine Leukocyte Esterase NEGATIVE Urine Microscopic RBC 10-25 Urine Microscopic WBC 2-5 Urine Epithelial Cells MODERATE Urine Bacteria FEW Urine Hemoglobin 1+ H Urine Glucose NEGATIVE Urine Total Protein 1+ H Bedside Glucose 108 Medications Medications Current Medications Ondansetron HCl (Zofran Tab) 4 mg Q6H PRN PO NAUSEA AND/OR VOMITING Last administered on 11/18/16 08:09; Admin Dose 4 MG; Start 11/09/16 at 02:00 Metoclopramide HCl (Reglan) 10 mg Q6H PRN IV NAUSEA AND/OR VOMITING Last administered on 11/16/16 21:15; Admin Dose 10 MG; Start 11/09/16 at 02:00 Acetaminophen (Tylenol Tab) 650 mg Q6H PRN PO PAIN LEVEL 1-3 OR FEVER; Start at 02:00 Acetaminophen/ Hydrocodone Bitart ([place] (5/325)) 1 tab Q6H PRN PO MODERATE PAIN LEVEL 4-6 Last administered on 11/16/16 11:27; Admin Dose 1 TAB; Start 11/09/16 at 02:00 Acetaminophen/ Hydrocodone Bitart 2 tab 2 tab Q6H PRN PO SEVERE PAIN LEVEL 7- 10 Last administered on 11/27/16 03:33; Admin Dose 2 TAB; Start 11/09/16 at 02: 00 Sodium Chloride (NS) 250 ml @ 250 mls/hr PRN PRN IV SBP <80 Last administered on 11/11/16 00:52; Admin Dose 250 MLS/HR; Start 11/10/16 at 17:30 Lorazepam (Ativan) 1 mg Q4H PRN IV ANXIETY Last administered on 11/26/16 21:25 ; Admin Dose 1 MG; Start 11/14/16 at 23:30 Al Hydrox/Mg Hydrox/Simethicone (Mag-Al Plus) 30 ml Q6H PRN PO GASTROINTESTINAL UPSET Last administered on 11/16/16 21:15; Admin Dose 30 ML; Start 11/16/16 at 21:30 Ondansetron HCl (Zofran Inj) 4 mg Q6H PRN IV NAUSEA AND/OR VOMITING Last administered on 11/26/16 09:30; Admin Dose 4 MG; Start 11/18/16 at 14:00 Pantoprazole 40 mg 40 mg BID@06,18 IV Last administered on 11/27/16 05:50; Admin Dose 40 MG; Start 11/20/16 at 18:00 Metronidazole 100 ml @ 100 mls/hr Q8 IVPB Last administered on 11/27/16 06:42 ; Admin Dose 100 MLS/HR; Start 11/20/16 at 22:00 Piperacillin Sod/ Tazobactam Sod (Zosyn 3.375gm/ 100 ml (Pmx)) 100 ml @ 200 mls /hr Q6 IVPB Last administered on 11/27/16 06:08; Admin Dose 200 MLS/HR; Start 11/21/16 at 00:00 Morphine Sulfate (morphine) 2 mg Q4H PRN IV pain Last administered on 03:57; Admin Dose 2 MG; Start 11/21/16 at 10:30 Phenol (Cepastat Lozenge) 1 lozenge Q1H PRN MT throat irritation Last administered on 11/24/16 20:38; Admin Dose 1 LOZENGE; Start 11/21/16 at 10:30 Miscellaneous Information 1 ea NOTE XX ; Start 11/21/16 at 12:00 Glucose (Glutose) 15 gm Q15M PRN PO DECREASED GLUCOSE; Start 11/21/16 at 12:00 Glucose (Glutose) 22.5 gm Q15M PRN PO DECREASED GLUCOSE; Start 11/21/16 at 12: 00 Dextrose (D50w Syringe) 25 ml Q15M PRN IV DECREASED GLUCOSE Last administered on 11/21/16 11:45; Admin Dose 25 ML; Start 11/21/16 at 12:00 Dextrose (D50w Syringe) 50 ml Q15M PRN IV DECREASED GLUCOSE; Start 11/21/16 at 12:00 Glucagon (Glucagen) 1 mg Q15M PRN IM DECREASED GLUCOSE; Start 11/21/16 at 12:00 Glucose (Glutose) 15 gm Q15M PRN BUCCAL DECREASED GLUCOSE; Start 11/21/16 at 12 :00 Furosemide (Lasix) 20 mg DAILY IV Last administered on 11/27/16 08:56; Admin Dose 20 MG; Start 11/21/16 at 12:30 Miscellaneous Information 1 ea NOTE XX ; Start 11/24/16 at 14:00 Diagnostic Test (Pha) (Accu-Chek) 1 ea Q6H XX Last administered on 11/27/16 05 :56; Admin Dose 1 EA; Start 11/25/16 at 18:00 Insulin Aspart (Novolog Insulin Pen) (Adult SC Insulin - Mild Algorithm)... Q6H SC Last administered on 11/26/16 12:34; Admin Dose 1 UNIT; Start 11/25/16 at 18:00 Octreotide Acetate 50 mcg 50 mcg TID SC Last administered on 11/27/16 08:56; Admin Dose 50 MCG; Start 11/26/16 at 21:00 Total Parenteral Nutrition (Tpn) 1,000 ml @ 40 mls/hr Q24H IV ; Start 11/27/16 at 12:46; Status FLORINDA WOODS M.D. Nov 27, 2016 13:01
--- NOTE | 2016-11-27 16:08 | CONS ---
Date/Time of Note Date/Time of Note DATE: 11/27/16 TIME: 15:44 Assessment/Plan Assessment/Plan Chief Complaint/Hosp Course ID PROGRESS NOTE TOTAL ABX DAY # 11=> Zosyn + Flagyl 24H INTERVAL SUMMARY * A/A/O - No fevers, WBC rising yesterday on ABX, she c/o burning dysuria, UA (+ )Nitrite, (-)LeukEsterase, (+)WBCs 2-5, (+)RBCs 10-20, few bacteria -> FC inserted * No N/V/D -- no BM since date of surgery per nurse, NPO on TPN via R-IJ TLC * CXR 11/26/16 IMPRESSION: * 1. Right central venous catheter tip in the SVC. * 2. Hazy opacification of the lung ruby, most prominent inferiorly. This probably represent a combination of layering pleural effusions, edema, and atelectasis, although a superimposed pneumonia cannot be excluded. * 3. Mildly enlarged cardiac silhouette and aortic atherosclerosis. PHYSICAL EXAMINATION: GENERAL: VSS, NAD, A/A/O - [place] speaking, nurse present to interpret HEENT: Unremarkable NECK: Supple, R-IJ TLC C/D/I, no erythema CHEST: Equal chest rise bilaterally, without dyspnea on observation HEART: Pulse RRR ABDOMEN: Distended w/ JEWEL drain - yellow tinged peritoneal fluid draining, EXTREMITIES: Warm-> BLEXT juan carlos hose SKIN: Warm, dry ID ASSESSMENT: 56 yo F admitted with pelvic mass w/ascites on 11/09/2016: 1. Dx w/Stage III ovarian cancer w/pelvic mass & malignant ascites * POD # => 11/17/16 status post extended hysterectomy with bilateral salpingo- oophorectomy, in addition to: * Bilateral ureteral dissection with repositioning * Splenectomy with distal pancreatectomy * Omentectomy with cytoreduction * Pelvic and aortic lymph node dissection 2. SIRS w/leukocytosis-. WBC rising to 12.3 yesterday on ABX, No fevers 3. UTI ? ->(+)burning dysuria -> FC inserted w/11/25/16 UA: UA (+)Nitrite, (-) LeukEsterase, (+)WBCs 2-5, (+)RBCs 10-20, few bacteria * 11/20/16 Urine Cx URINE CULTURE Final NO GROWTH AFTER 48 HOURS 4. Malignant ascites w/JEWEL drain intact -> Presumptive bacterial peritonitis post op 5. Hx of cirrhosis 6. Pulmonary edema per CXR 11/26: Hazy opacification of the lung ruby, most prominent inferiorly. This probably represent a combination of layering pleural effusions, edema, and atelectasis, 7. Status post respiratory failure, extubated postoperatively. 8. QUERY residual HCAP post intubation? - pulmonary status is stable on room air without dyspnea 9. NPO status on TPN via R-IJ TLC ()MRSA Nares? INVASIVES: * R-IJ TLC, JEWEL drain, FC (11/27) ABX ALLERGIES: NKDA CURRENT ABX: TOTAL ABX DAY # 11=> Zosyn + Flagyl ID RECOMMENDATIONS: 1. Await urine cx 2. Check MRSA Nares screen 3. Continue current ABX Problems: Consultation Date/Type/Reason Admit Date/Time Nov 09, 2016 at 00:55 Initial Consult Date 11/17/16 Type of Consultation: ID Referring Provider: JYOTHI BENAVIDES Exam/Review of Systems Vital Signs Vitals Vital Signs Date Time Temp Pulse Resp B/P Pulse Ox O2 Delivery O2 Flow Rate FiO2 11/27/16 08:00 Nasal Cannula 2.0 11/27/16 07:52 98.0 68 17 114/61 94 Intake and Output 11/26/16 11/26/16 11/27/16 15:00 23:00 07:00 Intake Total 150 ml 1067 ml 670 ml Output Total 1500 ml 50 ml Balance 150 ml -433 ml 620 ml Results Result Diagram: 11/27/16 0429 11/27/16 0429 Results 24 hrs Laboratory Tests Test 11/26/16 17:47 11/27/16 00:38 11/27/16 04:29 11/27/16 05:55 Bedside Glucose 119 82 94 White Blood Count 11.0 H Red Blood Count 3.35 L Hemoglobin 9.8 L Hematocrit 30.9 L Mean Corpuscular Volume 92.2 Mean Corpuscular Hemoglobin 29.3 Mean Corpuscular Hemoglobin Concent 31.7 L Red Cell Distribution Width 17.3 H Platelet Count 566 H Mean Platelet Volume 9.8 Neutrophils % 73.2 Lymphocytes % 10.6 L Monocytes % 11.1 H Eosinophils % 3.6 Basophils % 0.6 Nucleated Red Blood Cells % 0.0 Neutrophils # 8.0 H Lymphocytes # 1.2 Monocytes # 1.2 H Eosinophils # 0.4 Basophils # 0.1 Nucleated Red Blood Cells # 0.0 Sodium Level 138 Potassium Level 3.9 Chloride Level 105 Carbon Dioxide Level 28 Anion Gap 9 Blood Urea Nitrogen 8 Creatinine 0.63 Glucose Level 81 Calcium Level 7.6 L Phosphorus Level 2.6 Magnesium Level 1.8 Iron Level 11 L Total Iron Binding Capacity 139 L Percent Iron Saturation 8 L Ferritin 175.0 Albumin 2.0 L Test 11/27/16 05:57 11/27/16 12:25 Urine Color YELLOW Urine Clarity CLEAR Urine pH 5.5 Urine Specific [place] 1.025 Urine Ketones NEGATIVE Urine Nitrite POSITIVE H Urine Bilirubin NEGATIVE Urine Urobilinogen 0.2 E.U./dL Urine Leukocyte Esterase NEGATIVE Urine Microscopic RBC 10-25 Urine Microscopic WBC 2-5 Urine Epithelial Cells MODERATE Urine Bacteria FEW Urine Hemoglobin 1+ H Urine Glucose NEGATIVE Urine Total Protein 1+ H Bedside Glucose 108 Medications Medications Current Medications Metoclopramide HCl (Reglan) 10 mg Q6H PRN IV NAUSEA AND/OR VOMITING Last administered on 11/16/16 21:15; Admin Dose 10 MG; Start 11/09/16 at 02:00 Acetaminophen (Tylenol Tab) 650 mg Q6H PRN PO PAIN LEVEL 1-3 OR FEVER; Start at 02:00 Acetaminophen/ Hydrocodone Bitart ([place] (5/325)) 1 tab Q6H PRN PO MODERATE PAIN LEVEL 4-6 Last administered on 11/16/16 11:27; Admin Dose 1 TAB; Start 11/09/16 at 02:00 Acetaminophen/ Hydrocodone Bitart 2 tab 2 tab Q6H PRN PO SEVERE PAIN LEVEL 7- 10 Last administered on 11/27/16 03:33; Admin Dose 2 TAB; Start 11/09/16 at 02: 00 Sodium Chloride (NS) 250 ml @ 250 mls/hr PRN PRN IV SBP <80 Last administered on 11/11/16 00:52; Admin Dose 250 MLS/HR; Start 11/10/16 at 17:30 Lorazepam (Ativan) 1 mg Q4H PRN IV ANXIETY Last administered on 11/26/16 21:25 ; Admin Dose 1 MG; Start 11/14/16 at 23:30 Al Hydrox/Mg Hydrox/Simethicone (Mag-Al Plus) 30 ml Q6H PRN PO GASTROINTESTINAL UPSET Last administered on 11/16/16 21:15; Admin Dose 30 ML; Start 11/16/16 at 21:30 Ondansetron HCl (Zofran Inj) 4 mg Q6H PRN IV NAUSEA AND/OR VOMITING Last administered on 11/26/16 09:30; Admin Dose 4 MG; Start 11/18/16 at 14:00 Pantoprazole 40 mg 40 mg BID@06,18 IV Last administered on 11/27/16 05:50; Admin Dose 40 MG; Start 11/20/16 at 18:00 Metronidazole 100 ml @ 100 mls/hr Q8 IVPB Last administered on 11/27/16 13:05 ; Admin Dose 100 MLS/HR; Start 11/20/16 at 22:00 Piperacillin Sod/ Tazobactam Sod (Zosyn 3.375gm/ 100 ml (Pmx)) 100 ml @ 200 mls /hr Q6 IVPB Last administered on 11/27/16 12:54; Admin Dose 200 MLS/HR; Start 11/21/16 at 00:00 Morphine Sulfate (morphine) 2 mg Q4H PRN IV pain Last administered on 03:57; Admin Dose 2 MG; Start 11/21/16 at 10:30 Phenol (Cepastat Lozenge) 1 lozenge Q1H PRN MT throat irritation Last administered on 11/24/16 20:38; Admin Dose 1 LOZENGE; Start 11/21/16 at 10:30 Miscellaneous Information 1 ea NOTE XX ; Start 11/21/16 at 12:00 Glucose (Glutose) 15 gm Q15M PRN PO DECREASED GLUCOSE; Start 11/21/16 at 12:00 Glucose (Glutose) 22.5 gm Q15M PRN PO DECREASED GLUCOSE; Start 11/21/16 at 12: 00 Dextrose (D50w Syringe) 25 ml Q15M PRN IV DECREASED GLUCOSE Last administered on 11/21/16 11:45; Admin Dose 25 ML; Start 11/21/16 at 12:00 Dextrose (D50w Syringe) 50 ml Q15M PRN IV DECREASED GLUCOSE; Start 11/21/16 at 12:00 Glucagon (Glucagen) 1 mg Q15M PRN IM DECREASED GLUCOSE; Start 11/21/16 at 12:00 Glucose (Glutose) 15 gm Q15M PRN BUCCAL DECREASED GLUCOSE; Start 11/21/16 at 12 :00 Furosemide (Lasix) 20 mg DAILY IV Last administered on 11/27/16 08:56; Admin Dose 20 MG; Start 11/21/16 at 12:30 Miscellaneous Information 1 ea NOTE XX ; Start 11/24/16 at 14:00 Diagnostic Test (Pha) (Accu-Chek) 1 ea Q6H XX Last administered on 11/27/16 05 :56; Admin Dose 1 EA; Start 11/25/16 at 18:00 Insulin Aspart (Adult SC Insulin - Mild Algorithm)... Q6H SC Last administered on 11/26/16 12:34; Admin Dose 1 UNIT; Start 11/25/16 at 18:00 Total Parenteral Nutrition (Tpn) 1,000 ml @ 30 mls/hr Q24H IV ; Start 11/27/16 at 18:00 NIXON VALDERRAMA NP Nov 27, 2016 15:54
[2016-11-27 19:20] VITALS: BP 137/78; RESP 20
[2016-11-27] MEDS: LORAZEPAM 2 MG INJ IV PRN (21:48)
[2016-11-28] MEDS: ALBUTEROL 18 GM INHALER INH SCH ×4 (02:00→21:25)
[2016-11-28] MEDS: HYDROCODONE/APAP (5/325) TAB PO PRN ×3 (03:44→15:42)
[2016-11-28 05:20] LABS: CALCIUM 7.9 mg/dl (8.4-10.2); CREATININE 0.64 mg/dl (0.44-1.00); MAGNESIUM 1.7 mg/dl (1.7-2.5); PHOSPHORUS 2.9 mg/dl (2.5-4.9); POTASSIUM 4.1 mmol/L (3.5-5.1)
[2016-11-28] MEDS: metroNIDAZOLE 500 MG/NS (PMX) 100 ML IVPB SCH ×3 (05:45→21:25)
[2016-11-28] MEDS: INSULIN ASPART [NOVOLOG] 3 ML PEN SC SCH (06:00)
[2016-11-28] MEDS: ACCU-CHEK XX SCH (06:35)
[2016-11-28] MEDS: PANTOPRAZOLE 40 MG INJ IV SCH ×2 (06:45→17:36)
[2016-11-28] MEDS: PIPER-TAZO 3.375 GM IV (PMX) 100 ML IVPB SCH ×4 (06:47→23:57)
[2016-11-28 08:00] VITALS: BP 111/66; RESP 18
[2016-11-28] MEDS: FUROSEMIDE 20 MG INJ IV SCH (08:45)
--- NOTE | 2016-11-28 09:36 | CONS ---
Date/Time of Note Date/Time of Note DATE: 11/28/16 TIME: 09:34 Assessment/Plan Assessment/Plan Chief Complaint/Hosp Course 56 yo female with malignant ascites who has since been diagnosed with FIGO stage III ovarian cancer. Surg path reveals an 8.5 cm tumor in right ovary, 1.2 cm tumor in L ovary and 1.5 cm tumor in L fallopian tube. The disease noted to involve the omentum, spleen, uterus, cervix and diaphragm. # ovarian ca, papillary serous , FIGO stage IIIc - now that patient is ambulating and tolerating her diet, will need to start chemotherapy in house -will plan to start Carboplatin/ Taxol once patient is cleared by Dr. Garcia. Will likely given in a dose dense fashion. -cont physical therapy -continue to advance diet as tolerated # Anemia - post op and secondary to iron deficiency -transfusion parameter per Dr. Garcia -s/p 3 days of IV iron to help maintain her Hg Approximately 40 min were spent at patient's bedside and in coordination of her care Problems: Consultation Date/Type/Reason Admit Date/Time Nov 09, 2016 at 00:55 Initial Consult Date 11/17/16 Type of Consultation: Hematology Reason for Consultation ovarian cancer Referring Provider: JYOTHI BENAVIDES 24 HR Interval Summary Free Text/Dictation pt is now ambulating and tolerating a diet Exam/Review of Systems Vital Signs Vitals Vital Signs Date Time Temp Pulse Resp B/P Pulse Ox O2 Delivery O2 Flow Rate FiO2 11/28/16 08:00 97.9 68 18 111/66 96 11/27/16 08:00 Nasal Cannula 2.0 Intake and Output 11/27/16 11/27/16 11/28/16 15:00 23:00 07:00 Intake Total 610 ml 750 ml 740 ml Output Total 340 ml 1150 ml 530 ml Balance 270 ml -400 ml 210 ml Exam Constitutional: alert, oriented Psych: no complaints Head: atraumatic, normocephalic Eyes: nl conjunctiva ENMT: nl external ears & nose Neck: non-tender, supple Respiratory: clear to auscultation Cardiovascular: regular rate and rhythm Gastrointestinal: other (JEWEL drain in place), surgical scars, tender Musculoskeletal: nl extremities to inspection Extremities: normal pulses Results Result Diagram: 11/27/16 0429 11/28/16 0439 Results 24 hrs Laboratory Tests Test 11/27/16 12:25 11/27/16 18:05 11/27/16 23:43 11/28/16 04:39 Bedside Glucose 108 102 100 Sodium Level 135 Potassium Level 4.1 Chloride Level 103 Carbon Dioxide Level 29 Anion Gap 7 L Blood Urea Nitrogen 10 Creatinine 0.64 Glucose Level 92 Calcium Level 7.9 L Phosphorus Level 2.9 Magnesium Level 1.7 Test 11/28/16 06:34 Bedside Glucose 97 Medications Medications Current Medications Metoclopramide HCl (Reglan) 10 mg Q6H PRN IV NAUSEA AND/OR VOMITING Last administered on 11/16/16 21:15; Admin Dose 10 MG; Start 11/09/16 at 02:00 Acetaminophen (Tylenol Tab) 650 mg Q6H PRN PO PAIN LEVEL 1-3 OR FEVER; Start at 02:00 Acetaminophen/ Hydrocodone Bitart ([place] (5/325)) 1 tab Q6H PRN PO MODERATE PAIN LEVEL 4-6 Last administered on 11/16/16 11:27; Admin Dose 1 TAB; Start 11/09/16 at 02:00 Acetaminophen/ Hydrocodone Bitart 2 tab 2 tab Q6H PRN PO SEVERE PAIN LEVEL 7- 10 Last administered on 11/28/16 03:44; Admin Dose 2 TAB; Start 11/09/16 at 02: 00 Sodium Chloride (NS) 250 ml @ 250 mls/hr PRN PRN IV SBP <80 Last administered on 11/11/16 00:52; Admin Dose 250 MLS/HR; Start 11/10/16 at 17:30 Lorazepam (Ativan) 1 mg Q4H PRN IV ANXIETY Last administered on 11/27/16 21:48 ; Admin Dose 1 MG; Start 11/14/16 at 23:30 Al Hydrox/Mg Hydrox/Simethicone (Mag-Al Plus) 30 ml Q6H PRN PO GASTROINTESTINAL UPSET Last administered on 11/16/16 21:15; Admin Dose 30 ML; Start 11/16/16 at 21:30 Ondansetron HCl (Zofran Inj) 4 mg Q6H PRN IV NAUSEA AND/OR VOMITING Last administered on 11/26/16 09:30; Admin Dose 4 MG; Start 11/18/16 at 14:00 Pantoprazole 40 mg 40 mg BID@06,18 IV Last administered on 11/28/16 06:45; Admin Dose 40 MG; Start 11/20/16 at 18:00 Metronidazole 100 ml @ 100 mls/hr Q8 IVPB Last administered on 11/28/16 05:45 ; Admin Dose 100 MLS/HR; Start 11/20/16 at 22:00 Piperacillin Sod/ Tazobactam Sod (Zosyn 3.375gm/ 100 ml (Pmx)) 100 ml @ 200 mls /hr Q6 IVPB Last administered on 11/28/16 06:47; Admin Dose 200 MLS/HR; Start 11/21/16 at 00:00 Morphine Sulfate (morphine) 2 mg Q4H PRN IV pain Last administered on 03:57; Admin Dose 2 MG; Start 11/21/16 at 10:30 Phenol (Cepastat Lozenge) 1 lozenge Q1H PRN MT throat irritation Last administered on 11/24/16 20:38; Admin Dose 1 LOZENGE; Start 11/21/16 at 10:30 Miscellaneous Information 1 ea NOTE XX ; Start 11/21/16 at 12:00 Glucose (Glutose) 15 gm Q15M PRN PO DECREASED GLUCOSE; Start 11/21/16 at 12:00 Glucose (Glutose) 22.5 gm Q15M PRN PO DECREASED GLUCOSE; Start 11/21/16 at 12: 00 Dextrose (D50w Syringe) 25 ml Q15M PRN IV DECREASED GLUCOSE Last administered on 11/21/16 11:45; Admin Dose 25 ML; Start 11/21/16 at 12:00 Dextrose (D50w Syringe) 50 ml Q15M PRN IV DECREASED GLUCOSE; Start 11/21/16 at 12:00 Glucagon (Glucagen) 1 mg Q15M PRN IM DECREASED GLUCOSE; Start 11/21/16 at 12:00 Glucose (Glutose) 15 gm Q15M PRN BUCCAL DECREASED GLUCOSE; Start 11/21/16 at 12 :00 Furosemide (Lasix) 20 mg DAILY IV Last administered on 11/28/16 08:45; Admin Dose 20 MG; Start 11/21/16 at 12:30 Miscellaneous Information 1 ea NOTE XX ; Start 11/24/16 at 14:00 Diagnostic Test (Pha) (Accu-Chek) 1 ea Q6H XX Last administered on 11/28/16 06 :35; Admin Dose 1 EA; Start 11/25/16 at 18:00 Insulin Aspart (Adult SC Insulin - Mild Algorithm)... Q6H SC Last administered on 11/26/16 12:34; Admin Dose 1 UNIT; Start 11/25/16 at 18:00 Total Parenteral Nutrition (Tpn) 1,000 ml @ 30 mls/hr Q24H IV Last administered on 11/27/16 21:43; Admin Dose 30 MLS/HR; Start 11/27/16 at 18:00 FLORINDA COATES M.D. Nov 28, 2016 09:36
--- NOTE | 2016-11-28 11:39 | PN ---
Date/Time of Note Date/Time of Note DATE: 11/28/16 TIME: 11:34 Assessment/Plan VTE Prophylaxis VTE Prophylaxis Intervention: SCD's Lines/Catheters IV [facility] Type (from [facility]): Peripheral IV Urinary Cath still in place: No Assessment/Plan Chief Complaint/Hosp Course Assessment/Plan: 56 F with: 1. Newly diagnosed Metastatic Cancer, most likely of Ovarian origin, Stage IIIc * S/p Extended hysterectomy with bilateral salpingo-oophorectomy, Bilateral ureteral dissection with repositioning, Splenectomy with distal pancreatectomy, Omentectomy with cytoreduction, Pelvic and aortic lymph node dissection and Diaphragm stripping POD # 11 * - monitor, f/u thiokol operator Onc rec's, Heme Onc as well. - Continue post op care per Car Repossessor onc - Plan is for commencement of chemo inhouse once cleared by thiokol operator Onc surgery team 2. S/p shock likely 2/2 volume depletion from third spacing with probable component of sepsis : probably from PNA: ?resolved - Continue abx for a total of 2weeks at least 3. Malignant Ascites - s/p paracentesis on admission and during surgery 4. S/p Vent dependent Resp Failure - s/p successful Extubation 5. Diuretic induced renal insufficiency: resolved 5. Mild Pancreatitis: resolved 6. Hx of Hypertension: issue has been Hypotension from shock. Now BP stable off pressors - monitor 7. Normocytic Anemia 2/2 Iron deficiency: s/p IV iron replacement 8. diet - Continue TPN and begin weaning once patient is tolerating diet 9. Anasarca likely 2/2 hypoalbuminemia PROPHYLAXIS: SCDs/ PPI Problems: Subjective 24 Hr Interval Summary Free Text/Dictation No acute events overnight. On [facility] soft diet now. Exam/Review of Systems Vital Signs Vitals Vital Signs Date Time Temp Pulse Resp B/P Pulse Ox O2 Delivery O2 Flow Rate FiO2 11/28/16 08:00 97.9 68 18 111/66 96 11/27/16 08:00 Nasal Cannula 2.0 Intake and Output 11/27/16 11/27/16 11/28/16 14:59 22:59 06:59 Intake Total 610 ml 750 ml 740 ml Output Total 340 ml 1150 ml 530 ml Balance 270 ml -400 ml 210 ml Exam Constitutional: alert, oriented Psych: nl mood/affect Head: normocephalic Eyes: PERRL, No icteric ENMT: other (NGT clamped) Respiratory: clear to auscultation, diminished breath sounds Cardiovascular: regular rate and rhythm, No murmurs/extra sounds Gastrointestinal: bowel sounds (hypoactive), distended, surgical scars ( covered in dressing, drain in place) Genitourinary - Female: other (palma clamped), No nl external genitalia (mild vulval edema) Extremities: No edema Neurological: nl mental status Results Result Diagram: 11/27/16 0429 11/28/16 0439 Results 24 hrs Laboratory Tests Test 11/27/16 12:25 11/27/16 18:05 11/27/16 23:43 11/28/16 04:39 Bedside Glucose 108 102 100 Sodium Level 135 Potassium Level 4.1 Chloride Level 103 Carbon Dioxide Level 29 Anion Gap 7 L Blood Urea Nitrogen 10 Creatinine 0.64 Glucose Level 92 Calcium Level 7.9 L Phosphorus Level 2.9 Magnesium Level 1.7 Test 11/28/16 06:34 Bedside Glucose 97 Medications Medications Current Medications Metoclopramide HCl (Reglan) 10 mg Q6H PRN IV NAUSEA AND/OR VOMITING Last administered on 11/16/16 21:15; Admin Dose 10 MG; Start 11/09/16 at 02:00 Acetaminophen (Tylenol Tab) 650 mg Q6H PRN PO PAIN LEVEL 1-3 OR FEVER; Start at 02:00 Acetaminophen/ Hydrocodone Bitart ([place] (5/325)) 1 tab Q6H PRN PO MODERATE PAIN LEVEL 4-6 Last administered on 11/16/16 11:27; Admin Dose 1 TAB; Start 11/09/16 at 02:00 Acetaminophen/ Hydrocodone Bitart 2 tab 2 tab Q6H PRN PO SEVERE PAIN LEVEL 7- 10 Last administered on 11/28/16 03:44; Admin Dose 2 TAB; Start 11/09/16 at 02: 00 Sodium Chloride (NS) 250 ml @ 250 mls/hr PRN PRN IV SBP <80 Last administered on 11/11/16 00:52; Admin Dose 250 MLS/HR; Start 11/10/16 at 17:30 Lorazepam (Ativan) 1 mg Q4H PRN IV ANXIETY Last administered on 11/27/16 21:48 ; Admin Dose 1 MG; Start 11/14/16 at 23:30 Al Hydrox/Mg Hydrox/Simethicone (Mag-Al Plus) 30 ml Q6H PRN PO GASTROINTESTINAL UPSET Last administered on 11/16/16 21:15; Admin Dose 30 ML; Start 11/16/16 at 21:30 Ondansetron HCl (Zofran Inj) 4 mg Q6H PRN IV NAUSEA AND/OR VOMITING Last administered on 11/26/16 09:30; Admin Dose 4 MG; Start 11/18/16 at 14:00 Pantoprazole 40 mg 40 mg BID@06,18 IV Last administered on 11/28/16 06:45; Admin Dose 40 MG; Start 11/20/16 at 18:00 Metronidazole 100 ml @ 100 mls/hr Q8 IVPB Last administered on 11/28/16 05:45 ; Admin Dose 100 MLS/HR; Start 11/20/16 at 22:00 Piperacillin Sod/ Tazobactam Sod (Zosyn 3.375gm/ 100 ml (Pmx)) 100 ml @ 200 mls /hr Q6 IVPB Last administered on 11/28/16 06:47; Admin Dose 200 MLS/HR; Start 11/21/16 at 00:00 Phenol (Cepastat Lozenge) 1 lozenge Q1H PRN MT throat irritation Last administered on 11/24/16 20:38; Admin Dose 1 LOZENGE; Start 11/21/16 at 10:30 Miscellaneous Information 1 ea NOTE XX ; Start 11/21/16 at 12:00 Glucose (Glutose) 15 gm Q15M PRN PO DECREASED GLUCOSE; Start 11/21/16 at 12:00 Glucose (Glutose) 22.5 gm Q15M PRN PO DECREASED GLUCOSE; Start 11/21/16 at 12: 00 Dextrose (D50w Syringe) 25 ml Q15M PRN IV DECREASED GLUCOSE Last administered on 11/21/16 11:45; Admin Dose 25 ML; Start 11/21/16 at 12:00 Dextrose (D50w Syringe) 50 ml Q15M PRN IV DECREASED GLUCOSE; Start 11/21/16 at 12:00 Glucagon (Glucagen) 1 mg Q15M PRN IM DECREASED GLUCOSE; Start 11/21/16 at 12:00 Glucose (Glutose) 15 gm Q15M PRN BUCCAL DECREASED GLUCOSE; Start 11/21/16 at 12 :00 Furosemide (Lasix) 20 mg DAILY IV Last administered on 11/28/16 08:45; Admin Dose 20 MG; Start 11/21/16 at 12:30 Miscellaneous Information 1 ea NOTE XX ; Start 11/24/16 at 14:00 Diagnostic Test (Pha) (Accu-Chek) 1 ea Q6H XX Last administered on 11/28/16 06 :35; Admin Dose 1 EA; Start 11/25/16 at 18:00 Insulin Aspart (Novolog Insulin Pen) (Adult SC Insulin - Mild Algorithm)... Q6H SC Last administered on 11/26/16 12:34; Admin Dose 1 UNIT; Start 11/25/16 at 18:00 QUINCY KU Nov 28, 2016 11:39
[2016-11-28 19:30] VITALS: BP 110/64; RESP 18
--- NOTE | 2016-11-28 20:42 | CONS ---
Date/Time of Note Date/Time of Note DATE: 11/28/16 TIME: 20:37 Assessment/Plan Assessment/Plan Chief Complaint/Hosp Course ID PROGRESS NOTE TOTAL ABX DAY # 12=> Zosyn + Flagyl 24H INTERVAL SUMMARY * A/A/O - No fevers, denies dysuria--No N/V/D -- no BM since date of surgery per nurse, NPO on TPN via R-IJ TLC * Doing well -- Urine Cx (-) WBC was rising on ABX, she c/o burning dysuria, UA (+)Nitrite, (-)LeukEsterase, (+)WBCs 2-5, (+)RBCs 10-20, few bacteria * -> FC inserted for urine sample * JEWEL drain remains in place with leakage of ascitic fluid around drain -- copious amounts through ABD pads and into her gown -- I assured her it is better to have the fluid leak out thatn to remain inside building pressure -- assured her the nurses will come by soon and change the dressing on noc shift. * CXR 11/26/16 IMPRESSION: * 1. Right central venous catheter tip in the SVC. * 2. Hazy opacification of the lung ruby, most prominent inferiorly. This probably represent a combination of layering pleural effusions, edema, and atelectasis, although a superimposed pneumonia cannot be excluded. * 3. Mildly enlarged cardiac silhouette and aortic atherosclerosis. PHYSICAL EXAMINATION: GENERAL: VSS, NAD, A/A/O - Maltese speaking, nurse present to interpret HEENT: Unremarkable NECK: Supple, R-IJ TLC C/D/I, no erythema CHEST: Equal chest rise bilaterally, without dyspnea on observation HEART: Pulse RRR ABDOMEN: Distended w/ JEWEL drain - yellow tinged peritoneal fluid draining, EXTREMITIES: Warm-> BLEXT juan carlos hose SKIN: Warm, dry ID ASSESSMENT: 56 yo F admitted with pelvic mass w/ascites on 11/09/2016: 1. Dx w/Stage III ovarian cancer w/pelvic mass & malignant ascites * POD # => 11/17/16 status post extended hysterectomy with bilateral salpingo- oophorectomy, in addition to: * Bilateral ureteral dissection with repositioning * Splenectomy with distal pancreatectomy * Omentectomy with cytoreduction * Pelvic and aortic lymph node dissection 2. SIRS w/leukocytosis-. WBC rising to 12.3 yesterday on ABX, No fevers 3. UTI ? ->(+)burning dysuria -> FC inserted w/11/25/16 UA: UA (+)Nitrite, (-) LeukEsterase, (+)WBCs 2-5, (+)RBCs 10-20, few bacteria * 11/20/16 Urine Cx URINE CULTURE Final NO GROWTH AFTER 48 HOURS 4. Malignant ascites w/JEWEL drain intact -> Presumptive bacterial peritonitis post op 5. Hx of cirrhosis 6. Pulmonary edema per CXR 11/26: Hazy opacification of the lung ruby, most prominent inferiorly. This probably represent a combination of layering pleural effusions, edema, and atelectasis, 7. Status post respiratory failure, extubated postoperatively. 8. QUERY residual HCAP post intubation? - pulmonary status is stable on room air without dyspnea 9. NPO status on TPN via R-IJ TLC ()MRSA Nares? INVASIVES: * R-IJ TLC, JEWEL drain, FC (11/27) ABX ALLERGIES: NKDA CURRENT ABX: TOTAL ABX DAY # 12=> Zosyn + Flagyl ID RECOMMENDATIONS: 1. Continue current ABX 2. MRSA Nares screen pending 3. Will f/u Problems: Consultation Date/Type/Reason Admit Date/Time Nov 09, 2016 at 00:55 Initial Consult Date 11/17/16 Type of Consultation: ID Referring Provider: JYOTHI BENAVIDES Exam/Review of Systems Vital Signs Vitals Vital Signs Date Time Temp Pulse Resp B/P Pulse Ox O2 Delivery O2 Flow Rate FiO2 11/28/16 08:00 97.9 68 18 111/66 96 11/27/16 08:00 Nasal Cannula 2.0 Intake and Output 11/27/16 11/27/16 11/28/16 15:00 23:00 07:00 Intake Total 610 ml 750 ml 740 ml Output Total 340 ml 1150 ml 530 ml Balance 270 ml -400 ml 210 ml Results Result Diagram: 11/27/16 0429 11/28/16 0439 Results 24 hrs Laboratory Tests Test 11/27/16 23:43 11/28/16 04:39 11/28/16 06:34 Bedside Glucose 100 97 Sodium Level 135 Potassium Level 4.1 Chloride Level 103 Carbon Dioxide Level 29 Anion Gap 7 L Blood Urea Nitrogen 10 Creatinine 0.64 Glucose Level 92 Calcium Level 7.9 L Phosphorus Level 2.9 Magnesium Level 1.7 Medications Medications Current Medications Metoclopramide HCl (Reglan) 10 mg Q6H PRN IV NAUSEA AND/OR VOMITING Last administered on 11/16/16 21:15; Admin Dose 10 MG; Start 11/09/16 at 02:00 Acetaminophen (Tylenol Tab) 650 mg Q6H PRN PO PAIN LEVEL 1-3 OR FEVER; Start at 02:00 Acetaminophen/ Hydrocodone Bitart ([place] (5/325)) 1 tab Q6H PRN PO MODERATE PAIN LEVEL 4-6 Last administered on 11/28/16 15:42; Admin Dose 1 TAB; Start 11/09/16 at 02:00 Acetaminophen/ Hydrocodone Bitart 2 tab 2 tab Q6H PRN PO SEVERE PAIN LEVEL 7- 10 Last administered on 11/28/16 03:44; Admin Dose 2 TAB; Start 11/09/16 at 02: 00 Sodium Chloride (NS) 250 ml @ 250 mls/hr PRN PRN IV SBP <80 Last administered on 11/11/16 00:52; Admin Dose 250 MLS/HR; Start 11/10/16 at 17:30 Lorazepam (Ativan) 1 mg Q4H PRN IV ANXIETY Last administered on 11/27/16 21:48 ; Admin Dose 1 MG; Start 11/14/16 at 23:30 Al Hydrox/Mg Hydrox/Simethicone (Mag-Al Plus) 30 ml Q6H PRN PO GASTROINTESTINAL UPSET Last administered on 11/16/16 21:15; Admin Dose 30 ML; Start 11/16/16 at 21:30 Ondansetron HCl (Zofran Inj) 4 mg Q6H PRN IV NAUSEA AND/OR VOMITING Last administered on 11/26/16 09:30; Admin Dose 4 MG; Start 11/18/16 at 14:00 Pantoprazole 40 mg 40 mg BID@06,18 IV Last administered on 11/28/16 17:36; Admin Dose 40 MG; Start 11/20/16 at 18:00 Metronidazole 100 ml @ 100 mls/hr Q8 IVPB Last administered on 11/28/16 14:21 ; Admin Dose 100 MLS/HR; Start 11/20/16 at 22:00 Piperacillin Sod/ Tazobactam Sod (Zosyn 3.375gm/ 100 ml (Pmx)) 100 ml @ 200 mls /hr Q6 IVPB Last administered on 11/28/16 17:36; Admin Dose 200 MLS/HR; Start 11/21/16 at 00:00 Phenol (Cepastat Lozenge) 1 lozenge Q1H PRN MT throat irritation Last administered on 11/24/16 20:38; Admin Dose 1 LOZENGE; Start 11/21/16 at 10:30 Miscellaneous Information 1 ea NOTE XX ; Start 11/21/16 at 12:00 Glucose (Glutose) 15 gm Q15M PRN PO DECREASED GLUCOSE; Start 11/21/16 at 12:00 Glucose (Glutose) 22.5 gm Q15M PRN PO DECREASED GLUCOSE; Start 11/21/16 at 12: 00 Dextrose (D50w Syringe) 25 ml Q15M PRN IV DECREASED GLUCOSE Last administered on 11/21/16 11:45; Admin Dose 25 ML; Start 11/21/16 at 12:00 Dextrose (D50w Syringe) 50 ml Q15M PRN IV DECREASED GLUCOSE; Start 11/21/16 at 12:00 Glucagon (Glucagen) 1 mg Q15M PRN IM DECREASED GLUCOSE; Start 11/21/16 at 12:00 Glucose (Glutose) 15 gm Q15M PRN BUCCAL DECREASED GLUCOSE; Start 11/21/16 at 12 :00 Furosemide (Lasix) 20 mg DAILY IV Last administered on 11/28/16 08:45; Admin Dose 20 MG; Start 11/21/16 at 12:30 Miscellaneous Information 1 ea NOTE XX ; Start 11/24/16 at 14:00 NIXON VALDERRAMA NP Nov 28, 2016 20:42
--- NOTE | 2016-11-28 21:23 | PN ---
Date/Time of Note Date/Time of Note DATE: 11/28/16 TIME: 21:21 Assessment/Plan VTE Prophylaxis VTE Prophylaxis Intervention: SCD's Lines/Catheters IV Catheter Type (from Nrsg): Peripheral IV Urinary Cath still in place: No Assessment/Plan Chief Complaint/Hosp Course Probable ovarian cancer vs peritoneal Problems: Assessment/Plan A-doing well P- anticipate chemo Wed or Thurs Subjective 24 Hr Interval Summary Free Text/Dictation + flatus and voided OK.. Chase diet so fat. Exam/Review of Systems Vital Signs Vitals Vital Signs Date Time Temp Pulse Resp B/P Pulse Ox O2 Delivery O2 Flow Rate FiO2 11/28/16 08:00 97.9 68 18 111/66 96 11/27/16 08:00 Nasal Cannula 2.0 Intake and Output 11/27/16 11/27/16 11/28/16 15:00 23:00 07:00 Intake Total 610 ml 750 ml 740 ml Output Total 340 ml 1150 ml 530 ml Balance 270 ml -400 ml 210 ml Exam Cardiovascular: nl pulses, regular rate and rhythm Gastrointestinal: non-tender, soft Musculoskeletal: joint tenderness Results Result Diagram: 11/27/16 0429 11/28/16 0439 Results 24 hrs Laboratory Tests Test 11/27/16 23:43 11/28/16 04:39 11/28/16 06:34 Bedside Glucose 100 97 Sodium Level 135 Potassium Level 4.1 Chloride Level 103 Carbon Dioxide Level 29 Anion Gap 7 L Blood Urea Nitrogen 10 Creatinine 0.64 Glucose Level 92 Calcium Level 7.9 L Phosphorus Level 2.9 Magnesium Level 1.7 Medications Medications Current Medications Metoclopramide HCl (Reglan) 10 mg Q6H PRN IV NAUSEA AND/OR VOMITING Last administered on 11/16/16 21:15; Admin Dose 10 MG; Start 11/09/16 at 02:00 Acetaminophen (Tylenol Tab) 650 mg Q6H PRN PO PAIN LEVEL 1-3 OR FEVER; Start at 02:00 Acetaminophen/ Hydrocodone Bitart ([place] (5/325)) 1 tab Q6H PRN PO MODERATE PAIN LEVEL 4-6 Last administered on 11/28/16 15:42; Admin Dose 1 TAB; Start 11/09/16 at 02:00 Acetaminophen/ Hydrocodone Bitart 2 tab 2 tab Q6H PRN PO SEVERE PAIN LEVEL 7- 10 Last administered on 11/28/16 03:44; Admin Dose 2 TAB; Start 11/09/16 at 02: 00 Sodium Chloride (NS) 250 ml @ 250 mls/hr PRN PRN IV SBP <80 Last administered on 11/11/16 00:52; Admin Dose 250 MLS/HR; Start 11/10/16 at 17:30 Lorazepam (Ativan) 1 mg Q4H PRN IV ANXIETY Last administered on 11/27/16 21:48 ; Admin Dose 1 MG; Start 11/14/16 at 23:30 Al Hydrox/Mg Hydrox/Simethicone (Mag-Al Plus) 30 ml Q6H PRN PO GASTROINTESTINAL UPSET Last administered on 11/16/16 21:15; Admin Dose 30 ML; Start 11/16/16 at 21:30 Ondansetron HCl (Zofran Inj) 4 mg Q6H PRN IV NAUSEA AND/OR VOMITING Last administered on 11/26/16 09:30; Admin Dose 4 MG; Start 11/18/16 at 14:00 Pantoprazole 40 mg 40 mg BID@06,18 IV Last administered on 11/28/16 17:36; Admin Dose 40 MG; Start 11/20/16 at 18:00 Metronidazole 100 ml @ 100 mls/hr Q8 IVPB Last administered on 11/28/16 14:21 ; Admin Dose 100 MLS/HR; Start 11/20/16 at 22:00 Piperacillin Sod/ Tazobactam Sod (Zosyn 3.375gm/ 100 ml (Pmx)) 100 ml @ 200 mls /hr Q6 IVPB Last administered on 11/28/16 17:36; Admin Dose 200 MLS/HR; Start 11/21/16 at 00:00 Phenol (Cepastat Lozenge) 1 lozenge Q1H PRN MT throat irritation Last administered on 11/24/16 20:38; Admin Dose 1 LOZENGE; Start 11/21/16 at 10:30 Miscellaneous Information 1 ea NOTE XX ; Start 11/21/16 at 12:00 Glucose (Glutose) 15 gm Q15M PRN PO DECREASED GLUCOSE; Start 11/21/16 at 12:00 Glucose (Glutose) 22.5 gm Q15M PRN PO DECREASED GLUCOSE; Start 11/21/16 at 12: 00 Dextrose (D50w Syringe) 25 ml Q15M PRN IV DECREASED GLUCOSE Last administered on 11/21/16 11:45; Admin Dose 25 ML; Start 11/21/16 at 12:00 Dextrose (D50w Syringe) 50 ml Q15M PRN IV DECREASED GLUCOSE; Start 11/21/16 at 12:00 Glucagon (Glucagen) 1 mg Q15M PRN IM DECREASED GLUCOSE; Start 11/21/16 at 12:00 Glucose (Glutose) 15 gm Q15M PRN BUCCAL DECREASED GLUCOSE; Start 11/21/16 at 12 :00 Furosemide (Lasix) 20 mg DAILY IV Last administered on 11/28/16 08:45; Admin Dose 20 MG; Start 11/21/16 at 12:30 Miscellaneous Information 1 ea NOTE XX ; Start 11/24/16 at 14:00 DILLON MARTÍNEZ MD Nov 28, 2016 21:23
[2016-11-28] MEDS: LORAZEPAM 2 MG INJ IV PRN (22:45)
[2016-11-29] MEDS: ALBUTEROL 18 GM INHALER INH SCH ×4 (02:13→20:11)
[2016-11-29] MEDS: metroNIDAZOLE 500 MG/NS (PMX) 100 ML IVPB SCH ×3 (05:20→21:25)
[2016-11-29 06:02] LABS: ADD SCAN DIFF NO
[2016-11-29] MEDS: PIPER-TAZO 3.375 GM IV (PMX) 100 ML IVPB SCH ×3 (06:18→17:48)
[2016-11-29] MEDS: PANTOPRAZOLE 40 MG INJ IV SCH ×2 (06:18→17:48)
[2016-11-29 06:24] LABS: BASOPHIL # 0.1 10^3/ul (0.0-0.1); BASOPHILS % 0.8 % (0.0-2.0); EOSINOPHILS # 0.2 10^3/ul (0.0-0.5); EOSINOPHILS % 1.1 % (0.0-7.0); HEMATOCRIT 33.4 % (37.0-47.0); HEMOGLOBIN 10.9 g/dl (12.0-16.0); LYMPHOCYTES # 2.5 10^3/ul (0.8-2.9); LYMPHOCYTES % 16.4 % (15.0-51.0); MEAN CORPUSCULAR HEMOGLOBIN 29.5 pg (29.0-33.0); MEAN CORPUSCULAR HGB CONC 32.6 g/dl (32.0-37.0); MEAN CORPUSCULAR VOLUME 90.3 fl (82.0-101.0); MEAN PLATELET VOLUME 9.9 fl (7.4-10.4); MONOCYTE # 1.4 10^3/ul (0.3-0.9); MONOCYTES % 9.3 % (0.0-11.0); NEUTROPHIL # 10.8 10^3/ul (1.6-7.5); NEUTROPHILS % 71.7 % (39.0-77.0); PLATELET COUNT 824 10^3/UL (140-415); RED CELL DISTRIBUTION WIDTH 18.3 % (11.5-14.5); WHITE BLOOD COUNT 15.1 10^3/ul (4.8-10.8)
[2016-11-29 06:53] LABS: POTASSIUM 3.7 mmol/L (3.5-5.1)
[2016-11-29 06:56] LABS: CREATININE 0.61 mg/dl (0.44-1.00)
[2016-11-29 06:57] LABS: CALCIUM 7.8 mg/dl (8.4-10.2)
[2016-11-29 07:00] VITALS: BP 110/59; RESP 20
[2016-11-29] MEDS: FUROSEMIDE 20 MG INJ IV SCH (08:23)
[2016-11-29] MEDS ORDERED: PHYTONADIONE 10 MG/ML INJ SC ONE (09:30)
[2016-11-29] MEDS: DEXTROSE 50% 50 ML SYRINGE IV PRN (10:05)
[2016-11-29 10:18] LABS: INR 1.49; PROTIME 18.1 Sec (12.2-14.2); PT RATIO 1.4
[2016-11-29 10:19] LABS: PARTIAL THROMBOPLASTIN TIME 31.2 Sec (25.0-35.0)
[2016-11-29] MEDS: HYDROCODONE/APAP (5/325) TAB PO PRN (10:19)
[2016-11-29] MEDS ORDERED: DEXTROSE 5%-0.45% NACL 1,000 ML IV SCH (10:30)
--- NOTE | 2016-11-29 11:26 | PN ---
Date/Time of Note Date/Time of Note DATE: 11/29/16 TIME: 11:24 Assessment/Plan VTE Prophylaxis VTE Prophylaxis Intervention: SCD's Lines/Catheters [facility] Peripheral IV Urinary Cath still in place: No Assessment/Plan Chief Complaint/Hosp Course Assessment/Plan: 56 F with: 1. 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 - Continue post op care per Fish And Game Warden onc - Plan is for commencement of chemo inhouse once cleared by drying machine operator package yarns Onc surgery team - for cath placement later today as well 2. S/p shock likely 2/2 volume depletion from third spacing with probable component of sepsis: probably from PNA: ?resolved - Continue abx for a total of 2weeks at least 3. Malignant Ascites - s/p paracentesis on admission and during surgery 4. S/p Vent dependent Resp Failure - s/p successful Extubation 5. Diuretic induced renal insufficiency: resolved 5. Mild Pancreatitis: resolved 6. Hx of Hypertension: issue has been Hypotension from shock. Now BP stable off pressors - monitor 7. Normocytic Anemia 2/2 Iron deficiency: s/p IV iron replacement 8. diet - off TPNB now, continue PO diet as tolerated. 9. Anasarca likely 2/2 hypoalbuminemia PROPHYLAXIS: SCDs/ PPI Problems: Subjective 24 Hr Interval Summary Free Text/Dictation Pt had some low FS this AM. Off TPN now. Exam/Review of Systems Vital Signs Vitals Vital Signs Date Time Temp Pulse Resp B/P Pulse Ox O2 Delivery O2 Flow Rate FiO2 11/29/16 07:00 98.7 82 20 110/59 96 11/29/16 05:05 2.0 11/27/16 08:00 Nasal Cannula Intake and Output 11/28/16 11/28/16 11/29/16 15:00 23:00 07:00 Intake Total 410 ml 780 ml 660 ml Output Total 840 ml 450 ml Balance 410 ml -60 ml 210 ml Exam Constitutional: alert, oriented Psych: nl mood/affect Head: normocephalic Eyes: PERRL, No icteric Respiratory: clear to auscultation Cardiovascular: regular rate and rhythm, No murmurs/extra sounds Gastrointestinal: bowel sounds (hypoactive), slightly distended, surgical scars Extremities: No edema Neurological: nl mental status Results Result Diagram: 11/29/16 0510 11/29/16 0510 Results 24 hrs Laboratory Tests Test 11/29/16 05:10 11/29/16 07:26 11/29/16 07:53 11/29/16 08:18 White Blood Count 15.1 #H Red Blood Count 3.70 L Hemoglobin 10.9 L Hematocrit 33.4 L Mean Corpuscular Volume 90.3 Mean Corpuscular Hemoglobin 29.5 Mean Corpuscular Hemoglobin Concent 32.6 Red Cell Distribution Width 18.3 H Platelet Count 824 #H Mean Platelet Volume 9.9 Neutrophils % 71.7 Lymphocytes % 16.4 Monocytes % 9.3 Eosinophils % 1.1 Basophils % 0.8 Nucleated Red Blood Cells % 0.0 Neutrophils # 10.8 H Lymphocytes # 2.5 Monocytes # 1.4 H Eosinophils # 0.2 Basophils # 0.1 Nucleated Red Blood Cells # 0.0 Sodium Level 136 Potassium Level 3.7 Chloride Level 101 Carbon Dioxide Level 26 Anion Gap 13 Blood Urea Nitrogen 11 Creatinine 0.61 Glucose Level 37 #*L Calcium Level 7.8 L Bedside Glucose 53 L 54 L 67 L Test 11/29/16 08:35 11/29/16 09:18 11/29/16 09:33 11/29/16 09:55 Bedside Glucose 65 L 70 62 L Prothrombin Time 18.1 H Prothrombin Time Ratio 1.4 INR International Normalized Ratio 1.49 Activated Partial Thromboplast Time 31.2 Test 11/29/16 10:29 11/29/16 11:09 Bedside Glucose 110 97 Medications Medications Current Medications Metoclopramide HCl (Reglan) 10 mg Q6H PRN IV NAUSEA AND/OR VOMITING Last administered on 11/16/16 21:15; Admin Dose 10 MG; Start 11/09/16 at 02:00 Acetaminophen (Tylenol Tab) 650 mg Q6H PRN PO PAIN LEVEL 1-3 OR FEVER; Start at 02:00 Acetaminophen/ Hydrocodone Bitart ([place] (5/325)) 1 tab Q6H PRN PO MODERATE PAIN LEVEL 4-6 Last administered on 11/28/16 15:42; Admin Dose 1 TAB; Start 11/09/16 at 02:00 Acetaminophen/ Hydrocodone Bitart 2 tab 2 tab Q6H PRN PO SEVERE PAIN LEVEL 7- 10 Last administered on 11/29/16 10:19; Admin Dose 2 TAB; Start 11/09/16 at 02: 00 Sodium Chloride (NS) 250 ml @ 250 mls/hr PRN PRN IV SBP <80 Last administered on 11/11/16 00:52; Admin Dose 250 MLS/HR; Start 11/10/16 at 17:30 Lorazepam (Ativan) 1 mg Q4H PRN IV ANXIETY Last administered on 11/28/16 22:45 ; Admin Dose 1 MG; Start 11/14/16 at 23:30 Al Hydrox/Mg Hydrox/Simethicone (Mag-Al Plus) 30 ml Q6H PRN PO GASTROINTESTINAL UPSET Last administered on 11/16/16 21:15; Admin Dose 30 ML; Start 11/16/16 at 21:30 Ondansetron HCl (Zofran Inj) 4 mg Q6H PRN IV NAUSEA AND/OR VOMITING Last administered on 11/26/16 09:30; Admin Dose 4 MG; Start 11/18/16 at 14:00 Pantoprazole 40 mg 40 mg BID@06,18 IV Last administered on 11/29/16 06:18; Admin Dose 40 MG; Start 11/20/16 at 18:00 Metronidazole 100 ml @ 100 mls/hr Q8 IVPB Last administered on 11/29/16 05:20 ; Admin Dose 100 MLS/HR; Start 11/20/16 at 22:00 Piperacillin Sod/ Tazobactam Sod (Zosyn 3.375gm/ 100 ml (Pmx)) 100 ml @ 200 mls /hr Q6 IVPB Last administered on 11/29/16 06:18; Admin Dose 200 MLS/HR; Start 11/21/16 at 00:00 Phenol (Cepastat Lozenge) 1 lozenge Q1H PRN MT throat irritation Last administered on 11/24/16 20:38; Admin Dose 1 LOZENGE; Start 11/21/16 at 10:30 Miscellaneous Information 1 ea NOTE XX ; Start 11/21/16 at 12:00 Glucose (Glutose) 15 gm Q15M PRN PO DECREASED GLUCOSE Last administered on 11/29 09:35; Admin Dose 15 GM; Start 11/21/16 at 12:00 Glucose (Glutose) 22.5 gm Q15M PRN PO DECREASED GLUCOSE; Start 11/21/16 at 12: 00 Dextrose (D50w Syringe) 25 ml Q15M PRN IV DECREASED GLUCOSE Last administered on 11/29/16 10:05; Admin Dose 25 ML; Start 11/21/16 at 12:00 Dextrose (D50w Syringe) 50 ml Q15M PRN IV DECREASED GLUCOSE; Start 11/21/16 at 12:00 Glucagon (Glucagen) 1 mg Q15M PRN IM DECREASED GLUCOSE; Start 11/21/16 at 12:00 Glucose (Glutose) 15 gm Q15M PRN BUCCAL DECREASED GLUCOSE; Start 11/21/16 at 12 :00 Furosemide (Lasix) 20 mg DAILY IV Last administered on 11/29/16 08:23; Admin Dose 20 MG; Start 11/21/16 at 12:30 Miscellaneous Information 1 ea 1 ea NOTE XX ; Start 11/24/16 at 14:00 Dextrose/Sodium Chloride (D5-1/2ns) 1,000 ml @ 75 mls/hr [id number] IV Last administered on 11/29/16 10:27; Admin Dose 75 MLS/HR; Start 11/29/16 at 10:30; Stop 11/29/16 at 16:30 QUINCY KU Nov 29, 2016 11:26
--- NOTE | 2016-11-29 11:38 | CONS ---
Date/Time of Note Date/Time of Note DATE: 11/29/16 TIME: 11:37 Assessment/Plan Assessment/Plan Chief Complaint/Hosp Course 56 yo female with malignant ascites who has since been diagnosed with FIGO stage III ovarian cancer. Surg path reveals an 8.5 cm tumor in right ovary, 1.2 cm tumor in L ovary and 1.5 cm tumor in L fallopian tube. The disease noted to involve the omentum, spleen, uterus, cervix and diaphragm. # ovarian ca, papillary serous , FIGO stage IIIc - now that patient is ambulating and tolerating her diet, will need to start chemotherapy in house. orders have been written. pharmacy is obtaining the meds - port a cath scheduled to be placed - will plan to start Carboplatin/ Taxol once patient is cleared by Dr. Garcia. Will likely given in a dose dense fashion. - cont physical therapy - continue to advance diet as tolerated # Anemia - post op and secondary to iron deficiency -transfusion parameter per Dr. Garcia -s/p 3 days of IV iron to help maintain her Hg Approximately 40 min were spent at patient's bedside and in coordination of her care Problems: Consultation Date/Type/Reason Admit Date/Time Nov 09, 2016 at 00:55 Initial Consult Date 11/17/16 Type of Consultation: Hematology Reason for Consultation ovarian cancer Referring Provider: JYOTHI BENAVIDES 24 HR Interval Summary Free Text/Dictation pt is ambulating and tolerating her diet. feels well this morning Exam/Review of Systems Vital Signs Vitals Vital Signs Date Time Temp Pulse Resp B/P Pulse Ox O2 Delivery O2 Flow Rate FiO2 11/29/16 07:00 98.7 82 20 110/59 96 11/29/16 05:05 2.0 11/27/16 08:00 Nasal Cannula Intake and Output 11/28/16 11/28/16 11/29/16 15:00 23:00 07:00 Intake Total 410 ml 780 ml 660 ml Output Total 840 ml 450 ml Balance 410 ml -60 ml 210 ml Exam Constitutional: alert, oriented Psych: nl mood/affect, no complaints Head: normocephalic Eyes: nl conjunctiva ENMT: nl external ears & nose Neck: non-tender, supple Respiratory: clear to auscultation Cardiovascular: regular rate and rhythm Gastrointestinal: surgical scars Musculoskeletal: nl extremities to inspection Results Result Diagram: 11/29/16 0510 11/29/16 0510 Results 24 hrs Laboratory Tests Test 11/29/16 05:10 11/29/16 07:26 11/29/16 07:53 11/29/16 08:18 White Blood Count 15.1 #H Red Blood Count 3.70 L Hemoglobin 10.9 L Hematocrit 33.4 L Mean Corpuscular Volume 90.3 Mean Corpuscular Hemoglobin 29.5 Mean Corpuscular Hemoglobin Concent 32.6 Red Cell Distribution Width 18.3 H Platelet Count 824 #H Mean Platelet Volume 9.9 Neutrophils % 71.7 Lymphocytes % 16.4 Monocytes % 9.3 Eosinophils % 1.1 Basophils % 0.8 Nucleated Red Blood Cells % 0.0 Neutrophils # 10.8 H Lymphocytes # 2.5 Monocytes # 1.4 H Eosinophils # 0.2 Basophils # 0.1 Nucleated Red Blood Cells # 0.0 Sodium Level 136 Potassium Level 3.7 Chloride Level 101 Carbon Dioxide Level 26 Anion Gap 13 Blood Urea Nitrogen 11 Creatinine 0.61 Glucose Level 37 #*L Calcium Level 7.8 L Bedside Glucose 53 L 54 L 67 L Test 11/29/16 08:35 11/29/16 09:18 11/29/16 09:33 11/29/16 09:55 Bedside Glucose 65 L 70 62 L Prothrombin Time 18.1 H Prothrombin Time Ratio 1.4 INR International Normalized Ratio 1.49 Activated Partial Thromboplast Time 31.2 Test 11/29/16 10:29 11/29/16 11:09 Bedside Glucose 110 97 Medications Medications Current Medications Metoclopramide HCl (Reglan) 10 mg Q6H PRN IV NAUSEA AND/OR VOMITING Last administered on 11/16/16 21:15; Admin Dose 10 MG; Start 11/09/16 at 02:00 Acetaminophen (Tylenol Tab) 650 mg Q6H PRN PO PAIN LEVEL 1-3 OR FEVER; Start at 02:00 Acetaminophen/ Hydrocodone Bitart ([place] (5/325)) 1 tab Q6H PRN PO MODERATE PAIN LEVEL 4-6 Last administered on 11/28/16 15:42; Admin Dose 1 TAB; Start 11/09/16 at 02:00 Acetaminophen/ Hydrocodone Bitart 2 tab 2 tab Q6H PRN PO SEVERE PAIN LEVEL 7- 10 Last administered on 11/29/16 10:19; Admin Dose 2 TAB; Start 11/09/16 at 02: 00 Sodium Chloride (NS) 250 ml @ 250 mls/hr PRN PRN IV SBP <80 Last administered on 11/11/16 00:52; Admin Dose 250 MLS/HR; Start 11/10/16 at 17:30 Lorazepam (Ativan) 1 mg Q4H PRN IV ANXIETY Last administered on 11/28/16 22:45 ; Admin Dose 1 MG; Start 11/14/16 at 23:30 Al Hydrox/Mg Hydrox/Simethicone (Mag-Al Plus) 30 ml Q6H PRN PO GASTROINTESTINAL UPSET Last administered on 11/16/16 21:15; Admin Dose 30 ML; Start 11/16/16 at 21:30 Ondansetron HCl (Zofran Inj) 4 mg Q6H PRN IV NAUSEA AND/OR VOMITING Last administered on 11/26/16 09:30; Admin Dose 4 MG; Start 11/18/16 at 14:00 Pantoprazole 40 mg 40 mg BID@06,18 IV Last administered on 11/29/16 06:18; Admin Dose 40 MG; Start 11/20/16 at 18:00 Metronidazole 100 ml @ 100 mls/hr Q8 IVPB Last administered on 11/29/16 05:20 ; Admin Dose 100 MLS/HR; Start 11/20/16 at 22:00 Piperacillin Sod/ Tazobactam Sod (Zosyn 3.375gm/ 100 ml (Pmx)) 100 ml @ 200 mls /hr Q6 IVPB Last administered on 11/29/16 06:18; Admin Dose 200 MLS/HR; Start 11/21/16 at 00:00 Phenol (Cepastat Lozenge) 1 lozenge Q1H PRN MT throat irritation Last administered on 11/24/16 20:38; Admin Dose 1 LOZENGE; Start 11/21/16 at 10:30 Miscellaneous Information 1 ea NOTE XX ; Start 11/21/16 at 12:00 Glucose (Glutose) 15 gm Q15M PRN PO DECREASED GLUCOSE Last administered on 11/29 09:35; Admin Dose 15 GM; Start 11/21/16 at 12:00 Glucose (Glutose) 22.5 gm Q15M PRN PO DECREASED GLUCOSE; Start 11/21/16 at 12: 00 Dextrose (D50w Syringe) 25 ml Q15M PRN IV DECREASED GLUCOSE Last administered on 11/29/16 10:05; Admin Dose 25 ML; Start 11/21/16 at 12:00 Dextrose (D50w Syringe) 50 ml Q15M PRN IV DECREASED GLUCOSE; Start 11/21/16 at 12:00 Glucagon (Glucagen) 1 mg Q15M PRN IM DECREASED GLUCOSE; Start 11/21/16 at 12:00 Glucose (Glutose) 15 gm Q15M PRN BUCCAL DECREASED GLUCOSE; Start 11/21/16 at 12 :00 Furosemide (Lasix) 20 mg DAILY IV Last administered on 11/29/16 08:23; Admin Dose 20 MG; Start 11/21/16 at 12:30 Miscellaneous Information 1 ea 1 ea NOTE XX ; Start 11/24/16 at 14:00 Dextrose/Sodium Chloride (D5-1/2ns) 1,000 ml @ 75 mls/hr [id number] IV Last administered on 11/29/16 10:27; Admin Dose 75 MLS/HR; Start 11/29/16 at 10:30; Stop 11/29/16 at 16:30 FLORINDA COATES M.D. Nov 29, 2016 11:38
--- NOTE | 2016-11-29 12:35 | PN ---
Date/Time of Note Date/Time of Note DATE: 11/29/16 TIME: 12:32 Assessment/Plan VTE Prophylaxis VTE Prophylaxis Intervention: SCD's Lines/Catheters IV Catheter Type (from Nrs): Peripheral IV Central line still needed: Yes Urinary Cath still in place: No Assessment/Plan Chief Complaint/Hosp Course Probable ovarian cancer vs peritoneal Problems: Assessment/Plan A- doing well but central line in > 10 d P- consider PICC or port given slightly rising WBC on abx although afebrile. Subjective 24 Hr Interval Summary Free Text/Dictation Feels better and romina diet. + flatus and voids OK Exam/Review of Systems Vital Signs Vitals Vital Signs Date Time Temp Pulse Resp B/P Pulse Ox O2 Delivery O2 Flow Rate FiO2 11/29/16 07:00 98.7 82 20 110/59 96 11/29/16 05:05 2.0 11/27/16 08:00 Nasal Cannula Intake and Output 11/28/16 11/28/16 11/29/16 15:00 23:00 07:00 Intake Total 410 ml 780 ml 660 ml Output Total 840 ml 450 ml Balance 410 ml -60 ml 210 ml Exam Respiratory: normal air movement Cardiovascular: nl pulses, regular rate and rhythm Gastrointestinal: nl liver, spleen, non-tender, soft Musculoskeletal: nl extremities to inspection, nl gait and stance Extremities: normal pulses Results Result Diagram: 11/29/16 0510 11/29/16 0510 Results 24 hrs Laboratory Tests Test 11/29/16 05:10 11/29/16 07:26 11/29/16 07:53 11/29/16 08:18 White Blood Count 15.1 #H Red Blood Count 3.70 L Hemoglobin 10.9 L Hematocrit 33.4 L Mean Corpuscular Volume 90.3 Mean Corpuscular Hemoglobin 29.5 Mean Corpuscular Hemoglobin Concent 32.6 Red Cell Distribution Width 18.3 H Platelet Count 824 #H Mean Platelet Volume 9.9 Neutrophils % 71.7 Lymphocytes % 16.4 Monocytes % 9.3 Eosinophils % 1.1 Basophils % 0.8 Nucleated Red Blood Cells % 0.0 Neutrophils # 10.8 H Lymphocytes # 2.5 Monocytes # 1.4 H Eosinophils # 0.2 Basophils # 0.1 Nucleated Red Blood Cells # 0.0 Sodium Level 136 Potassium Level 3.7 Chloride Level 101 Carbon Dioxide Level 26 Anion Gap 13 Blood Urea Nitrogen 11 Creatinine 0.61 Glucose Level 37 #*L Calcium Level 7.8 L Bedside Glucose 53 L 54 L 67 L Test 11/29/16 08:35 11/29/16 09:18 11/29/16 09:33 11/29/16 09:55 Bedside Glucose 65 L 70 62 L Prothrombin Time 18.1 H Prothrombin Time Ratio 1.4 INR International Normalized Ratio 1.49 Activated Partial Thromboplast Time 31.2 Test 11/29/16 10:29 11/29/16 11:09 11/29/16 11:50 Bedside Glucose 110 97 Lab Scanned Report REFERENCE LAB Medications Medications Current Medications Metoclopramide HCl (Reglan) 10 mg Q6H PRN IV NAUSEA AND/OR VOMITING Last administered on 11/16/16 21:15; Admin Dose 10 MG; Start 11/09/16 at 02:00 Acetaminophen (Tylenol Tab) 650 mg Q6H PRN PO PAIN LEVEL 1-3 OR FEVER; Start at 02:00 Acetaminophen/ Hydrocodone Bitart ([place] (5/325)) 1 tab Q6H PRN PO MODERATE PAIN LEVEL 4-6 Last administered on 11/28/16 15:42; Admin Dose 1 TAB; Start 11/09/16 at 02:00 Acetaminophen/ Hydrocodone Bitart 2 tab 2 tab Q6H PRN PO SEVERE PAIN LEVEL 7- 10 Last administered on 11/29/16 10:19; Admin Dose 2 TAB; Start 11/09/16 at 02: 00 Sodium Chloride (NS) 250 ml @ 250 mls/hr PRN PRN IV SBP <80 Last administered on 11/11/16 00:52; Admin Dose 250 MLS/HR; Start 11/10/16 at 17:30 Lorazepam (Ativan) 1 mg Q4H PRN IV ANXIETY Last administered on 11/28/16 22:45 ; Admin Dose 1 MG; Start 11/14/16 at 23:30 Al Hydrox/Mg Hydrox/Simethicone (Mag-Al Plus) 30 ml Q6H PRN PO GASTROINTESTINAL UPSET Last administered on 11/16/16 21:15; Admin Dose 30 ML; Start 11/16/16 at 21:30 Ondansetron HCl (Zofran Inj) 4 mg Q6H PRN IV NAUSEA AND/OR VOMITING Last administered on 11/26/16 09:30; Admin Dose 4 MG; Start 11/18/16 at 14:00 Pantoprazole 40 mg 40 mg BID@06,18 IV Last administered on 11/29/16 06:18; Admin Dose 40 MG; Start 11/20/16 at 18:00 Metronidazole 100 ml @ 100 mls/hr Q8 IVPB Last administered on 11/29/16 05:20 ; Admin Dose 100 MLS/HR; Start 11/20/16 at 22:00 Piperacillin Sod/ Tazobactam Sod (Zosyn 3.375gm/ 100 ml (Pmx)) 100 ml @ 200 mls /hr Q6 IVPB Last administered on 11/29/16 06:18; Admin Dose 200 MLS/HR; Start 11/21/16 at 00:00 Phenol (Cepastat Lozenge) 1 lozenge Q1H PRN MT throat irritation Last administered on 11/24/16 20:38; Admin Dose 1 LOZENGE; Start 11/21/16 at 10:30 Miscellaneous Information 1 ea NOTE XX ; Start 11/21/16 at 12:00 Glucose (Glutose) 15 gm Q15M PRN PO DECREASED GLUCOSE Last administered on 11/29 09:35; Admin Dose 15 GM; Start 11/21/16 at 12:00 Glucose (Glutose) 22.5 gm Q15M PRN PO DECREASED GLUCOSE; Start 11/21/16 at 12: 00 Dextrose (D50w Syringe) 25 ml Q15M PRN IV DECREASED GLUCOSE Last administered on 11/29/16 10:05; Admin Dose 25 ML; Start 11/21/16 at 12:00 Dextrose (D50w Syringe) 50 ml Q15M PRN IV DECREASED GLUCOSE; Start 11/21/16 at 12:00 Glucagon (Glucagen) 1 mg Q15M PRN IM DECREASED GLUCOSE; Start 11/21/16 at 12:00 Glucose (Glutose) 15 gm Q15M PRN BUCCAL DECREASED GLUCOSE; Start 11/21/16 at 12 :00 Furosemide (Lasix) 20 mg DAILY IV Last administered on 11/29/16 08:23; Admin Dose 20 MG; Start 11/21/16 at 12:30 Miscellaneous Information 1 ea 1 ea NOTE XX ; Start 11/24/16 at 14:00 Dextrose/Sodium Chloride (D5-1/2ns) 1,000 ml @ 75 mls/hr [id number] IV Last administered on 11/29/16t 10:27; Admin Dose 75 MLS/HR; Start 11/29/16 at 10:30; Stop 11/29/16 at 16:30 DILLON MARTÍNEZ MD Nov 29, 2016 12:35
[2016-11-29] MEDS ORDERED: LIDOCAINE 1%/EPI 30 ML INJ ONE (14:01)
[2016-11-29] MEDS ORDERED: HEPARIN 1000 UNITS/ML 10 ML INJ ONE (14:01)
[2016-11-29] MEDS ORDERED: SOD CHLORIDE 0.9% 500 ML ONE (14:01)
[2016-11-29] MEDS ORDERED: CEFAZOLIN 1 GM/50 ML (PMX) 50 ML IVPB ONE (14:36)
[2016-11-29] MEDS ORDERED: MIDAZOLAM 1 MG/ML 2 ML INJ ONE (14:37)
[2016-11-29] MEDS ORDERED: FENTAnyl 50 MCG/ML VIAL ONE (14:37)
[2016-11-29 17:35] VITALS: BP 126/68; RESP 18
--- NOTE | 2016-11-29 18:43 | RADRPT ---
PROCEDURE: LEFT INTERNAL JUGULAR PORT PLACEMENT CLINICAL INDICATION: IV access for chemotherapy FLUOROSCOPY TIME: 0.3 minute TECHNIQUE: The procedure, its potential risks, benefits and alternatives were explained. Risks, including but n ot limited to pain, bleeding, infection, thrombosis, embolism and arrhythmia were discussed and und erstood. Following this discussion with the patient, informed consent was obtained. The left internal jugular vein was imaged with ultrasound and was shown to be compressible, with no evidence of thrombus. An image of this vein was obtained and saved to the PACS system. The neck and chest wall were scrubbed, draped and prepped in a sterile manner. The procedure was ca rried out under aseptic conditions. 1% lidocaine with epinephrine was utilized for local anesthesia . Following the standard prep, and under ultrasound guidance, the right internal jugular vein was punctured using anterior single wall micropuncture technique, and a micropuncture catheter was adva nced into the superior vena cava. Following this, an appropriate site on the anterior chest wall w as selected for port placement. The skin over the port placement site was then anesthetized. The s kin was then incised. Deep anesthesia was then given. Using blunt dissection technique, a pocket w as created in the subcutaneous soft tissue. Following this, a tract connecting the port pocket with the neck entry site was anesthetized. A 6 Urdu catheter was then pulled through the subcutaneous tract. Exchange of the micropuncture catheter was then done for a peel-away sheath. The catheter was then advanced through the sheath, the sheath was removed and the catheter was positioned with it s tip at the cavoatrial junction. Fluoroscopy was utilized to guide placement of the catheter. An im age of its final position was saved to the PACS system. The proximal end of the catheter was then tr immed and attached to a power injectable dual lumen chest wall port. The catheter and the port were then heparinized. The port was then placed within the pocket blank. The wound was then irrigated, and was dried. The wound was then closed using interrupted 3-0 Vicryl sutures, and a running subde rmal 4-0 Vicryl suture. Then over this, Dermabond was applied. A 4-0 Vicryl suture was placed to c lose the neck entry site, over which Dermabond was applied. The patient tolerated the procedure well . COMPARISON: none FINDINGS: as above. IMPRESSION: Placement of power injectable single lumen left chest wall port, as above. The catheter is ready for use. RPTAT: EE Nando Solis, Physician Date Time Electronically viewed and signed by Nando Solis, Physician on 11/29/2016 18:43 RA/
--- NOTE | 2016-11-29 18:43 | RADRPT ---
PROCEDURE: ULTRASOUND-GUIDED VASCULAR ACCESS CLINICAL INDICATION: Port-A-Cath placement TECHNIQUE: Informed consent was obtained from the patient after a discussion of the risks, benefit s, and alternatives of the procedure. Risks include, but are not limited to bleeding and infection. The left internal jugular vein was found to be patent and compressible with skelton scale and power Dop pler. A picture of it was saved to the PACS. 1% lidocaine was utilized for anesthesia. Under dire ct ultrasound guidance, a 21-gauge needle was advanced into the left internal jugular vein. A wire was advanced through the micropuncture needle. The micropuncture needle was then removed over the w dale and a 5-[place] catheter was advanced over the wire. COMPARISON: None. FINDINGS: Patent and compressible left internal jugular vein. IMPRESSION: Ultrasound guided vascular access for placement of a Port-A-Cath. RPTAT: EE Physician Vinicius Date Time Electronically viewed and signed by Physician Vinicius on 11/29/2016 18:43 /
[2016-11-29 20:01] VITALS: BP 109/57; RESP 18
[2016-11-29] MEDS: AL HYDROX/MG HYDROX/SIMETH 30 ML CUP PO PRN (21:37)
[2016-11-29] MEDS: LORAZEPAM 2 MG INJ IV PRN (23:47)
[2016-11-30] VITALS (8 sets, daily range): BP systolic 110–140; BP diastolic 56–77; PULSE 98–106; RESP 18–20
[2016-11-30] MEDS: PIPER-TAZO 3.375 GM IV (PMX) 100 ML IVPB SCH ×4 (00:07→17:18)
[2016-11-30] MEDS: ALBUTEROL 18 GM INHALER INH SCH ×4 (02:00→21:44)
[2016-11-30 05:09] LABS: ADD SCAN DIFF NO
[2016-11-30 05:14] LABS: ABNORMAL IP MESSAGE 1; BASOPHIL # 0.1 10^3/ul (0.0-0.1); BASOPHILS % 0.6 % (0.0-2.0); EOSINOPHILS # 0.2 10^3/ul (0.0-0.5); EOSINOPHILS % 1.8 % (0.0-7.0); HEMATOCRIT 30.2 % (37.0-47.0); LYMPHOCYTES # 1.4 10^3/ul (0.8-2.9); LYMPHOCYTES % 10.6 % (15.0-51.0); MEAN CORPUSCULAR HEMOGLOBIN 29.3 pg (29.0-33.0); MEAN CORPUSCULAR HGB CONC 33.1 g/dl (32.0-37.0); MEAN CORPUSCULAR VOLUME 88.6 fl (82.0-101.0); MEAN PLATELET VOLUME 9.1 fl (7.4-10.4); MONOCYTE # 1.5 10^3/ul (0.3-0.9); MONOCYTES % 11.5 % (0.0-11.0); NEUTROPHIL # 9.9 10^3/ul (1.6-7.5); PLATELET COUNT 882 10^3/UL (140-415); RED BLOOD COUNT 3.41 10^6/ul (4.20-5.40); RED CELL DISTRIBUTION WIDTH 18.4 % (11.5-14.5); WHITE BLOOD COUNT 13.1 10^3/ul (4.8-10.8)
[2016-11-30] MEDS: PANTOPRAZOLE 40 MG INJ IV SCH ×2 (05:30→17:18)
[2016-11-30] MEDS: metroNIDAZOLE 500 MG/NS (PMX) 100 ML IVPB SCH ×3 (05:30→20:39)
[2016-11-30 05:31] LABS: POTASSIUM 3.1 mmol/L (3.5-5.1)
[2016-11-30 05:33] LABS: CREATININE 0.6 mg/dl (0.44-1.00)
[2016-11-30 05:34] LABS: CALCIUM 7.4 mg/dl (8.4-10.2)
[2016-11-30] MEDS: FUROSEMIDE 20 MG INJ IV SCH (09:09)
[2016-11-30] MEDS ORDERED: POTASSIUM CHLORIDE 250 ML IVPB ONE (10:30)
[2016-11-30] MEDS: DEXAMETHASONE 4 MG TAB PO SCH ×2 (10:58→17:19)
--- NOTE | 2016-11-30 11:47 | CONS ---
Date/Time of Note Date/Time of Note DATE: 11/30/16 TIME: 11:43 Assessment/Plan Assessment/Plan Chief Complaint/Hosp Course 56 yo female with malignant ascites who has since been diagnosed with FIGO stage III ovarian cancer. Surg path reveals an 8.5 cm tumor in right ovary, 1.2 cm tumor in L ovary and 1.5 cm tumor in L fallopian tube. The disease noted to involve the omentum, spleen, uterus, cervix and diaphragm. # ovarian ca, papillary serous , FIGO stage IIIc - now that patient is ambulating and tolerating her diet, will need to start chemotherapy in house. orders have been written. pharmacy is obtaining the meds. plan to start today per nurse - port a cath has been placed - will plan to start Carboplatin/ Taxol once patient is cleared by Dr. Garcia. Will likely given in a dose dense fashion. - cont physical therapy - continue to advance diet as tolerated # Anemia - post op and secondary to iron deficiency -transfusion parameter per Dr. Garcia -s/p 3 days of IV iron to help maintain her Hg #Leukocytosis - I believe this is likely secondary to her splenectomy. pt does not appear actively infected - now that patient has the port, we can dc the central line and send the tip for culture - appreciate ID recs. will continue antibiotics for now Approximately 40 min were spent at patient's bedside and in coordination of her care Problems: Consultation Date/Type/Reason Admit Date/Time Nov 09, 2016 at 00:55 Initial Consult Date 11/17/16 Type of Consultation: Hematology Reason for Consultation ovarian cancer Referring Provider: JYOTHI BENAVIDES 24 HR Interval Summary Free Text/Dictation pt has her port a cath placed. no fevers. ambulating although she is tired. tolerating her diet. Exam/Review of Systems Vital Signs Vitals Vital Signs Date Time Temp Pulse Resp B/P Pulse Ox O2 Delivery O2 Flow Rate FiO2 11/30/16 08:37 98.0 69 18 110/63 99 11/30/16 02:48 2.0 11/29/16 17:30 Nasal Cannula Intake and Output 11/29/16 11/29/16 11/30/16 15:00 23:00 07:00 Intake Total 300 ml 900 ml 540 ml Output Total 40 ml 40 ml Balance 260 ml 900 ml 500 ml Exam Constitutional: alert, oriented Head: atraumatic, normocephalic Eyes: nl conjunctiva ENMT: nl external ears & nose Neck: non-tender, supple Respiratory: clear to auscultation, normal air movement Cardiovascular: regular rate and rhythm Gastrointestinal: other (drains in place), tender Musculoskeletal: nl extremities to inspection, nl gait and stance, swelling Results Result Diagram: 11/30/16 0433 11/30/16 0433 Results 24 hrs Laboratory Tests Test 11/29/16 11:50 11/29/16 12:30 11/30/16 04:33 Lab Scanned Report REFERENCE LAB Bedside Glucose 102 White Blood Count 13.1 H Red Blood Count 3.41 L Hemoglobin 10.0 L Hematocrit 30.2 L Mean Corpuscular Volume 88.6 Mean Corpuscular Hemoglobin 29.3 Mean Corpuscular Hemoglobin Concent 33.1 Red Cell Distribution Width 18.4 H Platelet Count 882 H Mean Platelet Volume 9.1 Neutrophils % 75.0 Lymphocytes % 10.6 L Monocytes % 11.5 H Eosinophils % 1.8 Basophils % 0.6 Nucleated Red Blood Cells % 0.0 Neutrophils # 9.9 H Lymphocytes # 1.4 Monocytes # 1.5 H Eosinophils # 0.2 Basophils # 0.1 Nucleated Red Blood Cells # 0.0 Sodium Level 136 Potassium Level 3.1 L Chloride Level 101 Carbon Dioxide Level 31 Anion Gap 7 L Blood Urea Nitrogen 8 Creatinine 0.60 Glucose Level 84 # Calcium Level 7.4 L Medications Medications Current Medications Metoclopramide HCl (Reglan) 10 mg Q6H PRN IV NAUSEA AND/OR VOMITING Last administered on 11/16/16 21:15; Admin Dose 10 MG; Start 11/09/16 at 02:00 Acetaminophen (Tylenol Tab) 650 mg Q6H PRN PO PAIN LEVEL 1-3 OR FEVER; Start at 02:00 Acetaminophen/ Hydrocodone Bitart ([place] (5/325)) 1 tab Q6H PRN PO MODERATE PAIN LEVEL 4-6 Last administered on 11/28/16 15:42; Admin Dose 1 TAB; Start 11/09/16 at 02:00 Acetaminophen/ Hydrocodone Bitart 2 tab 2 tab Q6H PRN PO SEVERE PAIN LEVEL 7- 10 Last administered on 11/29/16 10:19; Admin Dose 2 TAB; Start 11/09/16 at 02: 00 Sodium Chloride (NS) 250 ml @ 250 mls/hr PRN PRN IV SBP <80 Last administered on 11/11/16 00:52; Admin Dose 250 MLS/HR; Start 11/10/16 at 17:30 Lorazepam (Ativan) 1 mg Q4H PRN IV ANXIETY Last administered on 11/29/16 23:47 ; Admin Dose 1 MG; Start 11/14/16 at 23:30 Al Hydrox/Mg Hydrox/Simethicone (Mag-Al Plus) 30 ml Q6H PRN PO GASTROINTESTINAL UPSET Last administered on 11/29/16 21:37; Admin Dose 30 ML; Start 11/16/16 at 21:30 Ondansetron HCl (Zofran Inj) 4 mg Q6H PRN IV NAUSEA AND/OR VOMITING Last administered on 11/26/16 09:30; Admin Dose 4 MG; Start 11/18/16 at 14:00 Pantoprazole 40 mg 40 mg BID@06,18 IV Last administered on 11/30/16 05:30; Admin Dose 40 MG; Start 11/20/16 at 18:00 Metronidazole 100 ml @ 100 mls/hr Q8 IVPB Last administered on 11/30/16 05:30 ; Admin Dose 100 MLS/HR; Start 11/20/16 at 22:00 Piperacillin Sod/ Tazobactam Sod (Zosyn 3.375gm/ 100 ml (Pmx)) 100 ml @ 200 mls /hr Q6 IVPB Last administered on 11/30/16 06:29; Admin Dose 200 MLS/HR; Start 11/21/16 at 00:00 Phenol (Cepastat Lozenge) 1 lozenge Q1H PRN MT throat irritation Last administered on 11/24/16 20:38; Admin Dose 1 LOZENGE; Start 11/21/16 at 10:30 Miscellaneous Information 1 ea NOTE XX ; Start 11/21/16 at 12:00 Glucose (Glutose) 15 gm Q15M PRN PO DECREASED GLUCOSE Last administered on 11/29 09:35; Admin Dose 15 GM; Start 11/21/16 at 12:00 Glucose (Glutose) 22.5 gm Q15M PRN PO DECREASED GLUCOSE; Start 11/21/16 at 12: 00 Dextrose (D50w Syringe) 25 ml Q15M PRN IV DECREASED GLUCOSE Last administered on 11/29/16 10:05; Admin Dose 25 ML; Start 11/21/16 at 12:00 Dextrose (D50w Syringe) 50 ml Q15M PRN IV DECREASED GLUCOSE; Start 11/21/16 at 12:00 Glucagon (Glucagen) 1 mg Q15M PRN IM DECREASED GLUCOSE; Start 11/21/16 at 12:00 Glucose (Glutose) 15 gm Q15M PRN BUCCAL DECREASED GLUCOSE; Start 11/21/16 at 12 :00 Furosemide (Lasix) 20 mg DAILY IV Last administered on 11/30/16 09:09; Admin Dose 20 MG; Start 11/21/16 at 12:30 Miscellaneous Information 1 ea 1 ea NOTE XX ; Start 11/24/16 at 14:00 Potassium Chloride (KCl 40 MEQ/250 ML NS) 250 ml @ 62.5 mls/hr ONCE ONCE IVPB Last administered on 11/30/16 10:57; Admin Dose 62.5 MLS/HR; Start 11/30/16 at 10:30; Stop 11/30/16 at 14:29 Dexamethasone (Decadron) 20 mg Q6H PO Last administered on 11/30/16 10:58; Admin Dose 20 MG; Start 11/30/16 at 10:34; Stop 11/30/16 at 16:35 FLORINDA COATES M.D. Nov 30, 2016 11:47
[2016-11-30] MEDS: HYDROCODONE/APAP (5/325) TAB PO PRN (12:13)
--- NOTE | 2016-11-30 12:24 | PN ---
Date/Time of Note Date/Time of Note DATE: 11/30/16 TIME: 12:21 Assessment/Plan VTE Prophylaxis VTE Prophylaxis Intervention: SCD's Lines/Catheters IV Catheter Type (from Nrs): PICC Line Central line still needed: Yes Urinary Cath still in place: No Assessment/Plan Chief Complaint/Hosp Course Assessment/Plan: 56 F with: 1. 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 - Continue post op care per [employer] onc - Plan is for commencement of chemo inhouse, likely to start tnite 2. S/p shock likely 2/2 volume depletion from third spacing with probable component of sepsis: probably from PNA: ?resolved - Continue abx for a total of 2weeks at least 3. Malignant Ascites - s/p paracentesis on admission and during surgery 4. S/p Vent dependent Resp Failure - s/p successful Extubation 5. Diuretic induced renal insufficiency: resolved 5. Mild Pancreatitis: resolved 6. Hx of Hypertension: issue has been Hypotension from shock. Now BP stable off pressors - monitor 7. Normocytic Anemia 2/2 Iron deficiency: s/p IV iron replacement 8. diet - off TPNB now, continue PO diet as tolerated. 9. Anasarca likely 2/2 hypoalbuminemia PROPHYLAXIS: SCDs/ PPI Problems: Subjective 24 Hr Interval Summary Free Text/Dictation Pt received port-a-cath yesterday. Exam/Review of Systems Vital Signs Vitals Vital Signs Date Time Temp Pulse Resp B/P Pulse Ox O2 Delivery O2 Flow Rate FiO2 11/30/16 08:37 98.0 69 18 110/63 99 11/30/16 02:48 2.0 11/29/16 17:30 Nasal Cannula Intake and Output 11/29/16 11/29/16 11/30/16 14:59 22:59 06:59 Intake Total 300 ml 900 ml 540 ml Output Total 40 ml 40 ml Balance 260 ml 900 ml 500 ml Exam Constitutional: alert, oriented Psych: nl mood/affect Head: normocephalic Eyes: PERRL, No icteric Respiratory: clear to auscultation Cardiovascular: regular rate and rhythm, No murmurs/extra sounds Gastrointestinal: bowel sounds (hypoactive), slightly distended, surgical scars Extremities: No edema Neurological: nl mental status Results Result Diagram: 11/30/16 0433 11/30/16 0433 Results 24 hrs Laboratory Tests Test 11/29/16 12:30 11/30/16 04:33 Bedside Glucose 102 White Blood Count 13.1 H Red Blood Count 3.41 L Hemoglobin 10.0 L Hematocrit 30.2 L Mean Corpuscular Volume 88.6 Mean Corpuscular Hemoglobin 29.3 Mean Corpuscular Hemoglobin Concent 33.1 Red Cell Distribution Width 18.4 H Platelet Count 882 H Mean Platelet Volume 9.1 Neutrophils % 75.0 Lymphocytes % 10.6 L Monocytes % 11.5 H Eosinophils % 1.8 Basophils % 0.6 Nucleated Red Blood Cells % 0.0 Neutrophils # 9.9 H Lymphocytes # 1.4 Monocytes # 1.5 H Eosinophils # 0.2 Basophils # 0.1 Nucleated Red Blood Cells # 0.0 Sodium Level 136 Potassium Level 3.1 L Chloride Level 101 Carbon Dioxide Level 31 Anion Gap 7 L Blood Urea Nitrogen 8 Creatinine 0.60 Glucose Level 84 # Calcium Level 7.4 L Medications Medications Current Medications Metoclopramide HCl (Reglan) 10 mg Q6H PRN IV NAUSEA AND/OR VOMITING Last administered on 11/16/16 21:15; Admin Dose 10 MG; Start 11/09/16 at 02:00 Acetaminophen (Tylenol Tab) 650 mg Q6H PRN PO PAIN LEVEL 1-3 OR FEVER; Start at 02:00 Acetaminophen/ Hydrocodone Bitart ([place] (5/325)) 1 tab Q6H PRN PO MODERATE PAIN LEVEL 4-6 Last administered on 11/28/16 15:42; Admin Dose 1 TAB; Start 11/09/16 at 02:00 Acetaminophen/ Hydrocodone Bitart 2 tab 2 tab Q6H PRN PO SEVERE PAIN LEVEL 7- 10 Last administered on 11/30/16 12:13; Admin Dose 2 TAB; Start 11/09/16 at 02: 00 Sodium Chloride (NS) 250 ml @ 250 mls/hr PRN PRN IV SBP <80 Last administered on 11/11/16 00:52; Admin Dose 250 MLS/HR; Start 11/10/16 at 17:30 Lorazepam (Ativan) 1 mg Q4H PRN IV ANXIETY Last administered on 11/29/16 23:47 ; Admin Dose 1 MG; Start 11/14/16 at 23:30 Al Hydrox/Mg Hydrox/Simethicone (Mag-Al Plus) 30 ml Q6H PRN PO GASTROINTESTINAL UPSET Last administered on 11/29/16 21:37; Admin Dose 30 ML; Start 11/16/16 at 21:30 Ondansetron HCl (Zofran Inj) 4 mg Q6H PRN IV NAUSEA AND/OR VOMITING Last administered on 11/26/16 09:30; Admin Dose 4 MG; Start 11/18/16 at 14:00 Pantoprazole 40 mg 40 mg BID@06,18 IV Last administered on 11/30/16 05:30; Admin Dose 40 MG; Start 11/20/16 at 18:00 Metronidazole 100 ml @ 100 mls/hr Q8 IVPB Last administered on 11/30/16 05:30 ; Admin Dose 100 MLS/HR; Start 11/20/16 at 22:00 Piperacillin Sod/ Tazobactam Sod (Zosyn 3.375gm/ 100 ml (Pmx)) 100 ml @ 200 mls /hr Q6 IVPB Last administered on 11/30/16 12:13; Admin Dose 200 MLS/HR; Start 11/21/16 at 00:00 Phenol (Cepastat Lozenge) 1 lozenge Q1H PRN MT throat irritation Last administered on 11/24/16 20:38; Admin Dose 1 LOZENGE; Start 11/21/16 at 10:30 Miscellaneous Information 1 ea NOTE XX ; Start 11/21/16 at 12:00 Glucose (Glutose) 15 gm Q15M PRN PO DECREASED GLUCOSE Last administered on 11/29 09:35; Admin Dose 15 GM; Start 11/21/16 at 12:00 Glucose (Glutose) 22.5 gm Q15M PRN PO DECREASED GLUCOSE; Start 11/21/16 at 12: 00 Dextrose (D50w Syringe) 25 ml Q15M PRN IV DECREASED GLUCOSE Last administered on 11/29/16 10:05; Admin Dose 25 ML; Start 11/21/16 at 12:00 Dextrose (D50w Syringe) 50 ml Q15M PRN IV DECREASED GLUCOSE; Start 11/21/16 at 12:00 Glucagon (Glucagen) 1 mg Q15M PRN IM DECREASED GLUCOSE; Start 11/21/16 at 12:00 Glucose (Glutose) 15 gm Q15M PRN BUCCAL DECREASED GLUCOSE; Start 11/21/16 at 12 :00 Furosemide (Lasix) 20 mg DAILY IV Last administered on 11/30/16 09:09; Admin Dose 20 MG; Start 11/21/16 at 12:30 Miscellaneous Information 1 ea 1 ea NOTE XX ; Start 11/24/16 at 14:00 Potassium Chloride (KCl 40 MEQ/250 ML NS) 250 ml @ 62.5 mls/hr ONCE ONCE IVPB Last administered on 11/30/16 10:57; Admin Dose 62.5 MLS/HR; Start 11/30/16 at 10:30; Stop 11/30/16 at 14:29 Dexamethasone (Decadron) 20 mg Q6H PO Last administered on 11/30/16 10:58; Admin Dose 20 MG; Start 11/30/16 at 10:34; Stop 11/30/16 at 16:35 QUINCY KU Nov 30, 2016 12:24
[2016-11-30] MEDS: SOD CHLORIDE 0.9% 1,000 ML IV SCH (20:39)
[2016-11-30] MEDS ORDERED: DIPHENHYDRAMINE 50 MG INJ IV SCH (21:00)
[2016-11-30] MEDS ORDERED: METHYLPREDNISOLONE 125 MG INJ IV PRN (21:00)
[2016-11-30] MEDS ORDERED: MEPERIDINE 25 MG INJ IV PRN (21:00)
[2016-11-30] MEDS ORDERED: ONDANSETRON INJ 8 MG in SOD CHLORIDE 0.9% 50 ML IV PRN (21:00)
[2016-11-30] MEDS ORDERED: DEXTROSE 5% IV ONE (21:00)
[2016-11-30] MEDS ORDERED: ONDANSETRON IV ONE (21:00)
[2016-11-30] MEDS ORDERED: DIPHENHYDRAMINE 50 MG INJ IV PRN (21:00)
[2016-11-30] MEDS ORDERED: DEXAMETHASONE IV ONE (21:00)
--- NOTE | 2016-11-30 21:05 | PN ---
Date/Time of Note Date/Time of Note DATE: 11/30/16 TIME: 21:02 Assessment/Plan VTE Prophylaxis VTE Prophylaxis Intervention: SCD's Lines/Catheters [facility] PORTH A CATH Central line still needed: Yes Urinary Cath still in place: No Assessment/Plan Chief Complaint/Hosp Course Probable ovarian cancer vs peritoneal Problems: Assessment/Plan A- doing well P- Chemo tomorrow likely Subjective 24 Hr Interval Summary Free Text/Dictation Comfortable. + flatus and BM and OOB Exam/Review of Systems Vital Signs Vitals Vital Signs Date Time Temp Pulse Resp B/P Pulse Ox O2 Delivery O2 Flow Rate FiO2 11/30/16 20:10 98.4 99 20 140/77 91 11/30/16 18:23 21 11/30/16 02:48 2.0 11/29/16 17:30 Nasal Cannula Intake and Output 11/29/16 11/29/16 11/30/16 15:00 23:00 07:00 Intake Total 300 ml 900 ml 540 ml Output Total 40 ml 40 ml Balance 260 ml 900 ml 500 ml Exam Respiratory: No clear to auscultation, No congested cough, No crackles/rales, No diminished breath sounds, No intercostal retraction, No labored breathing, No normal air movement, No other, No respirations, No tactile fremitus, No wheezing Cardiovascular: nl pulses, regular rate and rhythm Gastrointestinal: No ascites, No bowel sounds, No distended, No firm, No hepatomegaly, No mass, No nl liver, spleen, No non-tender, No other, No rebound or guarding, No soft, No splenomegaly, No surgical scars, No tender Extremities: No calf tenderness, No clubbing, No cyanosis, No edema, No normal pulses, No other, No palpable cord, No pitting pedal edema, No tenderness Results Result Diagram: 11/30/16 0433 11/30/16 0433 Results 24 hrs Laboratory Tests Test 11/30/16 04:33 White Blood Count 13.1 H Red Blood Count 3.41 L Hemoglobin 10.0 L Hematocrit 30.2 L Mean Corpuscular Volume 88.6 Mean Corpuscular Hemoglobin 29.3 Mean Corpuscular Hemoglobin Concent 33.1 Red Cell Distribution Width 18.4 H Platelet Count 882 H Mean Platelet Volume 9.1 Neutrophils % 75.0 Lymphocytes % 10.6 L Monocytes % 11.5 H Eosinophils % 1.8 Basophils % 0.6 Nucleated Red Blood Cells % 0.0 Neutrophils # 9.9 H Lymphocytes # 1.4 Monocytes # 1.5 H Eosinophils # 0.2 Basophils # 0.1 Nucleated Red Blood Cells # 0.0 Sodium Level 136 Potassium Level 3.1 L Chloride Level 101 Carbon Dioxide Level 31 Anion Gap 7 L Blood Urea Nitrogen 8 Creatinine 0.60 Glucose Level 84 # Calcium Level 7.4 L Medications Medications Current Medications Metoclopramide HCl (Reglan) 10 mg Q6H PRN IV NAUSEA AND/OR VOMITING Last administered on 11/16/16 21:15; Admin Dose 10 MG; Start 11/09/16 at 02:00 Acetaminophen (Tylenol Tab) 650 mg Q6H PRN PO PAIN LEVEL 1-3 OR FEVER; Start at 02:00 Acetaminophen/ Hydrocodone Bitart ([place] (5/325)) 1 tab Q6H PRN PO MODERATE PAIN LEVEL 4-6 Last administered on 11/28/16 15:42; Admin Dose 1 TAB; Start 11/09/16 at 02:00 Acetaminophen/ Hydrocodone Bitart 2 tab 2 tab Q6H PRN PO SEVERE PAIN LEVEL 7- 10 Last administered on 11/30/16 12:13; Admin Dose 2 TAB; Start 11/09/16 at 02: 00 Sodium Chloride (NS) 250 ml @ 250 mls/hr PRN PRN IV SBP <80 Last administered on 11/11/16 00:52; Admin Dose 250 MLS/HR; Start 11/10/16 at 17:30 Lorazepam (Ativan) 1 mg Q4H PRN IV ANXIETY Last administered on 11/29/16 23:47 ; Admin Dose 1 MG; Start 11/14/16 at 23:30 Al Hydrox/Mg Hydrox/Simethicone (Mag-Al Plus) 30 ml Q6H PRN PO GASTROINTESTINAL UPSET Last administered on 11/29/16 21:37; Admin Dose 30 ML; Start 11/16/16 at 21:30 Ondansetron HCl (Zofran Inj) 4 mg Q6H PRN IV NAUSEA AND/OR VOMITING Last administered on 11/26/16 09:30; Admin Dose 4 MG; Start 11/18/16 at 14:00 Pantoprazole 40 mg 40 mg BID@06,18 IV Last administered on 11/30/16 17:18; Admin Dose 40 MG; Start 11/20/16 at 18:00 Metronidazole 100 ml @ 100 mls/hr Q8 IVPB Last administered on 11/30/16 20:39 ; Admin Dose 100 MLS/HR; Start 11/20/16 at 22:00 Piperacillin Sod/ Tazobactam Sod (Zosyn 3.375gm/ 100 ml (Pmx)) 100 ml @ 200 mls /hr Q6 IVPB Last administered on 11/30/16 17:18; Admin Dose 200 MLS/HR; Start 11/21/16 at 00:00 Phenol (Cepastat Lozenge) 1 lozenge Q1H PRN MT throat irritation Last administered on 11/24/16 20:38; Admin Dose 1 LOZENGE; Start 11/21/16 at 10:30 Miscellaneous Information 1 ea NOTE XX ; Start 11/21/16 at 12:00 Glucose (Glutose) 15 gm Q15M PRN PO DECREASED GLUCOSE Last administered on 11/29 09:35; Admin Dose 15 GM; Start 11/21/16 at 12:00 Glucose (Glutose) 22.5 gm Q15M PRN PO DECREASED GLUCOSE; Start 11/21/16 at 12: 00 Dextrose (D50w Syringe) 25 ml Q15M PRN IV DECREASED GLUCOSE Last administered on 11/29/16 10:05; Admin Dose 25 ML; Start 11/21/16 at 12:00 Dextrose (D50w Syringe) 50 ml Q15M PRN IV DECREASED GLUCOSE; Start 11/21/16 at 12:00 Glucagon (Glucagen) 1 mg Q15M PRN IM DECREASED GLUCOSE; Start 11/21/16 at 12:00 Glucose (Glutose) 15 gm Q15M PRN BUCCAL DECREASED GLUCOSE; Start 11/21/16 at 12 :00 Furosemide (Lasix) 20 mg DAILY IV Last administered on 11/30/16 09:09; Admin Dose 20 MG; Start 11/21/16 at 12:30 Miscellaneous Information 1 ea 1 ea NOTE XX ; Start 11/24/16 at 14:00 Sodium Chloride 1,000 ml @ 100 mls/hr Q10H IV Last administered on 4/27/17at 20:39; Admin Dose 100 MLS/HR; Start 11/30/16 at 21:00 Ondansetron HCl/ Dexamethasone/ Dextrose (Zofran Inj/ Decadron/D5W) 56.5 ml @ 252 mls/hr ONCE ONCE IV ; Start 11/30/16 at 21:00; Stop 11/30/16 at 21:13 Diphenhydramine HCl (Benadryl) 25 mg ONCE IV ; Start 11/30/16 at 21:00; Stop at 21:01 Methylprednisolone Sodium Succinate (Solu-Medrol) 60 mg Q4H PRN IV ALLERGIC REACTION; Start 11/30/16 at 21:00 Diphenhydramine HCl (Benadryl) 25 mg Q4H PRN IV ALLERGIC REACTION; Start at 21:00 Meperidine HCl 25 mg 25 mg Q4H PRN IV REACTION; Start 11/30/16 at 21:00 Ondansetron HCl 8 mg/Sodium Chloride 54 ml @ 216 mls/hr Q8H PRN IV NAUSEA AND/ OR VOMITING; Start 11/30/16 at 21:00 Carboplatin 600 mg/Carboplatin 100 mg/Sodium Chloride 310 ml @ 125 mls/hr ONCE IV ; Start 11/30/16 at 22:00; Stop 12/01/16 at 00:29 Paclitaxel/ Paclitaxel/Sodium Chloride (taxOL/taxOL/NS) 250 ml @ 166.667 mls/ hr Q7D IV ; Start 12/01/16 at 01:00; Stop 12/15/16 at 02:29 DILLON MARTÍNEZ MD Nov 30, 2016 21:05
[2016-11-30] MEDS ORDERED: CARBOPLATIN IV SCH (22:00)
[2016-11-30] MEDS ORDERED: SOD CHLORIDE 0.9% IV SCH (22:00)
[2016-12-01] VITALS (11 sets, daily range): BP systolic 122–140; BP diastolic 61–68; PULSE 79–100; RESP 18
[2016-12-01] MEDS ORDERED: PACLITAXEL IV SCH (01:00)
[2016-12-01] MEDS ORDERED: SOD CHLORIDE 0.9% IV SCH (01:00)
[2016-12-01] MEDS: PIPER-TAZO 3.375 GM IV (PMX) 100 ML IVPB SCH ×4 (01:06→18:06)
[2016-12-01] MEDS: ALBUTEROL 18 GM INHALER INH SCH ×4 (02:23→20:48)
[2016-12-01] MEDS: HYDROCODONE/APAP (5/325) TAB PO PRN (04:55)
[2016-12-01] MEDS: metroNIDAZOLE 500 MG/NS (PMX) 100 ML IVPB SCH ×3 (06:00→22:08)
[2016-12-01] MEDS: PANTOPRAZOLE 40 MG INJ IV SCH ×2 (06:02→18:05)
[2016-12-01 07:21] LABS: ADD SCAN DIFF NO
[2016-12-01 07:26] LABS: BASOPHILS % 0.1 % (0.0-2.0); HEMOGLOBIN 10.2 g/dl (12.0-16.0); LYMPHOCYTES # 0.6 10^3/ul (0.8-2.9); MEAN CORPUSCULAR HEMOGLOBIN 29.3 pg (29.0-33.0); MEAN CORPUSCULAR HGB CONC 32.9 g/dl (32.0-37.0); MEAN CORPUSCULAR VOLUME 89.1 fl (82.0-101.0); MEAN PLATELET VOLUME 9.4 fl (7.4-10.4); MONOCYTE # 0.3 10^3/ul (0.3-0.9); MONOCYTES % 1.9 % (0.0-11.0); NEUTROPHIL # 14.1 10^3/ul (1.6-7.5); NEUTROPHILS % 93.2 % (39.0-77.0); PLATELET COUNT 937 10^3/UL (140-415); RED BLOOD COUNT 3.48 10^6/ul (4.20-5.40); RED CELL DISTRIBUTION WIDTH 19.3 % (11.5-14.5); WHITE BLOOD COUNT 15.2 10^3/ul (4.8-10.8)
[2016-12-01 07:46] LABS: CALCIUM 7.5 mg/dl (8.4-10.2); CREATININE 0.57 mg/dl (0.44-1.00); POTASSIUM 3.5 mmol/L (3.5-5.1)
[2016-12-01] MEDS: FUROSEMIDE 20 MG INJ IV SCH (08:25)
[2016-12-01] MEDS: LORAZEPAM 2 MG INJ IV PRN ×2 (10:39→22:23)
[2016-12-01] MEDS: SOD CHLORIDE 0.9% 1,000 ML IV SCH ×2 (10:39→17:00)
--- NOTE | 2016-12-01 11:42 | PN ---
Date/Time of Note Date/Time of Note DATE: 12/01/16 TIME: 11:39 Assessment/Plan VTE Prophylaxis VTE Prophylaxis Intervention: SCD's Lines/Catheters IV Catheter Type (from [facility]): portacath Urinary Cath still in place: No Assessment/Plan Chief Complaint/Hosp Course Assessment/Plan: 56 F with: 1. 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 - Continue post op care per [employer] onc - continue chemo inhouse per Heme/Onc rec's 2. S/p shock likely 2/2 volume depletion from third spacing with probable component of sepsis: probably from PNA: ?resolved - Continue abx for a total of 2weeks at least 3. Malignant Ascites - s/p paracentesis on admission and during surgery 4. S/p Vent dependent Resp Failure - s/p successful Extubation 5. Diuretic induced renal insufficiency: resolved 5. Mild Pancreatitis: resolved 6. Hx of Hypertension: issue has been Hypotension from shock. Now BP stable off pressors - monitor 7. Normocytic Anemia 2/2 Iron deficiency: s/p IV iron replacement 8. diet - off TPNB now, continue PO diet as tolerated. 9. Anasarca likely 2/2 hypoalbuminemia PROPHYLAXIS: SCDs/ PPI Problems: Subjective 24 Hr Interval Summary Free Text/Dictation Pt started on chemo yesterday, tolerating. No acute events overnight. Exam/Review of Systems Vital Signs Vitals Vital Signs Date Time Temp Pulse Resp B/P Pulse Ox O2 Delivery O2 Flow Rate FiO2 12/01/16 08:23 97.8 96 18 131/61 100 12/01/16 06:15 Nasal Cannula 2.0 11/30/16 18:23 21 Intake and Output 11/30/16 11/30/16 12/01/16 15:00 23:00 07:00 Intake Total 450 ml 816.5 ml 1520 ml Output Total 900 ml Balance 450 ml -83.5 ml 1520 ml Exam Constitutional: alert, oriented Psych: nl mood/affect Head: normocephalic Eyes: PERRL, No icteric Respiratory: clear to auscultation Cardiovascular: regular rate and rhythm, No murmurs/extra sounds Gastrointestinal: bowel sounds (hypoactive), slightly distended, surgical scars Extremities: No edema Neurological: nl mental status Results Result Diagram: 12/01/16 0700 12/01/16 0700 Results 24 hrs Laboratory Tests Test 12/01/16 07:00 White Blood Count 15.2 H Red Blood Count 3.48 L Hemoglobin 10.2 L Hematocrit 31.0 L Mean Corpuscular Volume 89.1 Mean Corpuscular Hemoglobin 29.3 Mean Corpuscular Hemoglobin Concent 32.9 Red Cell Distribution Width 19.3 H Platelet Count 937 H Mean Platelet Volume 9.4 Neutrophils % 93.2 H Lymphocytes % 4.0 L Monocytes % 1.9 Eosinophils % 0.0 Basophils % 0.1 Nucleated Red Blood Cells % 0.0 Neutrophils # 14.1 H Lymphocytes # 0.6 L Monocytes # 0.3 Eosinophils # 0.0 Basophils # 0.0 Nucleated Red Blood Cells # 0.0 Sodium Level 136 Potassium Level 3.5 Chloride Level 105 Carbon Dioxide Level 25 Anion Gap 10 Blood Urea Nitrogen 6 L Creatinine 0.57 Glucose Level 107 Calcium Level 7.5 L Medications Medications Current Medications Metoclopramide HCl (Reglan) 10 mg Q6H PRN IV NAUSEA AND/OR VOMITING Last administered on 11/16/16 21:15; Admin Dose 10 MG; Start 11/09/16 at 02:00 Acetaminophen (Tylenol Tab) 650 mg Q6H PRN PO PAIN LEVEL 1-3 OR FEVER Last administered on 12/01/16 01:04; Admin Dose 650 MG; Start 11/09/16 at 02:00 Acetaminophen/ Hydrocodone Bitart ([place] (5/325)) 1 tab Q6H PRN PO MODERATE PAIN LEVEL 4-6 Last administered on 11/28/16 15:42; Admin Dose 1 TAB; Start 11/09/16 at 02:00 Acetaminophen/ Hydrocodone Bitart 2 tab 2 tab Q6H PRN PO SEVERE PAIN LEVEL 7- 10 Last administered on 12/01/16 04:55; Admin Dose 2 TAB; Start 11/09/16 at 02: 00 Sodium Chloride (NS) 250 ml @ 250 mls/hr PRN PRN IV SBP <80 Last administered on 11/11/16 00:52; Admin Dose 250 MLS/HR; Start 11/10/16 at 17:30 Lorazepam (Ativan) 1 mg Q4H PRN IV ANXIETY Last administered on 12/01/16 10:39 ; Admin Dose 1 MG; Start 11/14/16 at 23:30 Al Hydrox/Mg Hydrox/Simethicone (Mag-Al Plus) 30 ml Q6H PRN PO GASTROINTESTINAL UPSET Last administered on 11/29/16 21:37; Admin Dose 30 ML; Start 11/16/16 at 21:30 Ondansetron HCl (Zofran Inj) 4 mg Q6H PRN IV NAUSEA AND/OR VOMITING Last administered on 11/26/16 09:30; Admin Dose 4 MG; Start 11/18/16 at 14:00 Pantoprazole 40 mg 40 mg BID@06,18 IV Last administered on 12/01/16 06:02; Admin Dose 40 MG; Start 11/20/16 at 18:00 Metronidazole 100 ml @ 100 mls/hr Q8 IVPB Last administered on 12/01/16 06:00 ; Admin Dose 100 MLS/HR; Start 11/20/16 at 22:00 Piperacillin Sod/ Tazobactam Sod (Zosyn 3.375gm/ 100 ml (Pmx)) 100 ml @ 200 mls /hr Q6 IVPB Last administered on 12/01/16 08:25; Admin Dose 200 MLS/HR; Start 11/21/16 at 00:00 Phenol (Cepastat Lozenge) 1 lozenge Q1H PRN MT throat irritation Last administered on 11/24/16 20:38; Admin Dose 1 LOZENGE; Start 11/21/16 at 10:30 Miscellaneous Information 1 ea NOTE XX ; Start 11/21/16 at 12:00 Glucose (Glutose) 15 gm Q15M PRN PO DECREASED GLUCOSE Last administered on 11/29 09:35; Admin Dose 15 GM; Start 11/21/16 at 12:00 Glucose (Glutose) 22.5 gm Q15M PRN PO DECREASED GLUCOSE; Start 11/21/16 at 12: 00 Dextrose (D50w Syringe) 25 ml Q15M PRN IV DECREASED GLUCOSE Last administered on 11/29/16 10:05; Admin Dose 25 ML; Start 11/21/16 at 12:00 Dextrose (D50w Syringe) 50 ml Q15M PRN IV DECREASED GLUCOSE; Start 11/21/16 at 12:00 Glucagon (Glucagen) 1 mg Q15M PRN IM DECREASED GLUCOSE; Start 11/21/16 at 12:00 Glucose (Glutose) 15 gm Q15M PRN BUCCAL DECREASED GLUCOSE; Start 11/21/16 at 12 :00 Furosemide (Lasix) 20 mg DAILY IV Last administered on 12/01/16 08:25; Admin Dose 20 MG; Start 11/21/16 at 12:30 Miscellaneous Information 1 ea 1 ea NOTE XX ; Start 11/24/16 at 14:00 Sodium Chloride (NS) 1,000 ml @ 100 mls/hr Q10H IV Last administered on 10:39; Admin Dose 100 MLS/HR; Start 11/30/16 at 21:00 Methylprednisolone Sodium Succinate (Solu-Medrol) 60 mg Q4H PRN IV ALLERGIC REACTION; Start 11/30/16 at 21:00 Diphenhydramine HCl (Benadryl) 25 mg Q4H PRN IV ALLERGIC REACTION; Start at 21:00 Meperidine HCl 25 mg 25 mg Q4H PRN IV REACTION; Start 11/30/16 at 21:00 Ondansetron HCl 8 mg/Sodium Chloride 54 ml @ 216 mls/hr Q8H PRN IV NAUSEA AND/ OR VOMITING; Start 11/30/16 at 21:00 Paclitaxel/ Paclitaxel/Sodium Chloride (taxOL/taxOL/NS) 250 ml @ 166.667 mls/ hr Q7D IV Last administered on 12/01/16 02:28; Admin Dose 166.667 MLS/HR; Start 12/01/16 at 01:00; Stop 12/15/16 at 02:29 QUINCY KU Dec 01, 2016 11:42
--- NOTE | 2016-12-01 13:29 | PN ---
Date/Time of Note Date/Time of Note DATE: 12/01/16 TIME: 13:26 Assessment/Plan VTE Prophylaxis VTE Prophylaxis Intervention: SCD's Lines/Catheters IV Catheter Type (from Nrsg): portacath Central line still needed: Yes Urinary Cath still in place: No Assessment/Plan Chief Complaint/Hosp Course Probable ovarian cancer vs peritoneal Problems: Assessment/Plan A- doing well and tolerating Rx well P- Anticipate d/c after chemo although issue of abx uncertain. Subjective 24 Hr Interval Summary Free Text/Dictation Comfortable with less incision leakage and tolerating Rx. Eats well. Exam/Review of Systems Vital Signs Vitals Vital Signs Date Time Temp Pulse Resp B/P Pulse Ox O2 Delivery O2 Flow Rate FiO2 12/01/16 08:23 97.8 96 18 131/61 100 12/01/16 06:15 Nasal Cannula 2.0 11/30/16 18:23 21 Intake and Output 11/30/16 11/30/16 12/01/16 15:00 23:00 07:00 Intake Total 450 ml 816.5 ml 1520 ml Output Total 900 ml Balance 450 ml -83.5 ml 1520 ml Exam Gastrointestinal: non-tender, soft Musculoskeletal: nl extremities to inspection Extremities: normal pulses Results Result Diagram: 12/01/16 0700 12/01/16 0700 Results 24 hrs Laboratory Tests Test 12/01/16 07:00 White Blood Count 15.2 H Red Blood Count 3.48 L Hemoglobin 10.2 L Hematocrit 31.0 L Mean Corpuscular Volume 89.1 Mean Corpuscular Hemoglobin 29.3 Mean Corpuscular Hemoglobin Concent 32.9 Red Cell Distribution Width 19.3 H Platelet Count 937 H Mean Platelet Volume 9.4 Neutrophils % 93.2 H Lymphocytes % 4.0 L Monocytes % 1.9 Eosinophils % 0.0 Basophils % 0.1 Nucleated Red Blood Cells % 0.0 Neutrophils # 14.1 H Lymphocytes # 0.6 L Monocytes # 0.3 Eosinophils # 0.0 Basophils # 0.0 Nucleated Red Blood Cells # 0.0 Sodium Level 136 Potassium Level 3.5 Chloride Level 105 Carbon Dioxide Level 25 Anion Gap 10 Blood Urea Nitrogen 6 L Creatinine 0.57 Glucose Level 107 Calcium Level 7.5 L Medications Medications Current Medications Metoclopramide HCl (Reglan) 10 mg Q6H PRN IV NAUSEA AND/OR VOMITING Last administered on 11/16/16 21:15; Admin Dose 10 MG; Start 11/09/16 at 02:00 Acetaminophen (Tylenol Tab) 650 mg Q6H PRN PO PAIN LEVEL 1-3 OR FEVER Last administered on 12/01/16 01:04; Admin Dose 650 MG; Start 11/09/16 at 02:00 Acetaminophen/ Hydrocodone Bitart ([place] (5/325)) 1 tab Q6H PRN PO MODERATE PAIN LEVEL 4-6 Last administered on 11/28/16 15:42; Admin Dose 1 TAB; Start 11/09/16 at 02:00 Acetaminophen/ Hydrocodone Bitart 2 tab 2 tab Q6H PRN PO SEVERE PAIN LEVEL 7- 10 Last administered on 12/01/16 04:55; Admin Dose 2 TAB; Start 11/09/16 at 02: 00 Sodium Chloride (NS) 250 ml @ 250 mls/hr PRN PRN IV SBP <80 Last administered on 11/11/16 00:52; Admin Dose 250 MLS/HR; Start 11/10/16 at 17:30 Lorazepam (Ativan) 1 mg Q4H PRN IV ANXIETY Last administered on 12/01/16 10:39 ; Admin Dose 1 MG; Start 11/14/16 at 23:30 Al Hydrox/Mg Hydrox/Simethicone (Mag-Al Plus) 30 ml Q6H PRN PO GASTROINTESTINAL UPSET Last administered on 11/29/16 21:37; Admin Dose 30 ML; Start 11/16/16 at 21:30 Ondansetron HCl (Zofran Inj) 4 mg Q6H PRN IV NAUSEA AND/OR VOMITING Last administered on 11/26/16 09:30; Admin Dose 4 MG; Start 11/18/16 at 14:00 Pantoprazole 40 mg 40 mg BID@06,18 IV Last administered on 12/01/16 06:02; Admin Dose 40 MG; Start 11/20/16 at 18:00 Metronidazole 100 ml @ 100 mls/hr Q8 IVPB Last administered on 12/01/16 06:00 ; Admin Dose 100 MLS/HR; Start 11/20/16 at 22:00 Piperacillin Sod/ Tazobactam Sod (Zosyn 3.375gm/ 100 ml (Pmx)) 100 ml @ 200 mls /hr Q6 IVPB Last administered on 12/01/16 08:25; Admin Dose 200 MLS/HR; Start 11/21/16 at 00:00 Phenol (Cepastat Lozenge) 1 lozenge Q1H PRN MT throat irritation Last administered on 11/24/16 20:38; Admin Dose 1 LOZENGE; Start 11/21/16 at 10:30 Miscellaneous Information 1 ea NOTE XX ; Start 11/21/16 at 12:00 Glucose (Glutose) 15 gm Q15M PRN PO DECREASED GLUCOSE Last administered on 11/29 09:35; Admin Dose 15 GM; Start 11/21/16 at 12:00 Glucose (Glutose) 22.5 gm Q15M PRN PO DECREASED GLUCOSE; Start 11/21/16 at 12: 00 Dextrose (D50w Syringe) 25 ml Q15M PRN IV DECREASED GLUCOSE Last administered on 11/29/16 10:05; Admin Dose 25 ML; Start 11/21/16 at 12:00 Dextrose (D50w Syringe) 50 ml Q15M PRN IV DECREASED GLUCOSE; Start 11/21/16 at 12:00 Glucagon (Glucagen) 1 mg Q15M PRN IM DECREASED GLUCOSE; Start 11/21/16 at 12:00 Glucose (Glutose) 15 gm Q15M PRN BUCCAL DECREASED GLUCOSE; Start 11/21/16 at 12 :00 Furosemide (Lasix) 20 mg DAILY IV Last administered on 12/01/16 08:25; Admin Dose 20 MG; Start 11/21/16 at 12:30 Miscellaneous Information 1 ea 1 ea NOTE XX ; Start 11/24/16 at 14:00 Sodium Chloride (NS) 1,000 ml @ 100 mls/hr Q10H IV Last administered on 10:39; Admin Dose 100 MLS/HR; Start 11/30/16 at 21:00 Methylprednisolone Sodium Succinate (Solu-Medrol) 60 mg Q4H PRN IV ALLERGIC REACTION; Start 11/30/16 at 21:00 Diphenhydramine HCl (Benadryl) 25 mg Q4H PRN IV ALLERGIC REACTION; Start at 21:00 Meperidine HCl 25 mg 25 mg Q4H PRN IV REACTION; Start 4/27/17 at 21:00 Ondansetron HCl 8 mg/Sodium Chloride 54 ml @ 216 mls/hr Q8H PRN IV NAUSEA AND/ OR VOMITING; Start 11/30/16 at 21:00 Paclitaxel/ Paclitaxel/Sodium Chloride (taxOL/taxOL/NS) 250 ml @ 166.667 mls/ hr Q7D IV Last administered on 12/01/16t 02:28; Admin Dose 166.667 MLS/HR; Start 12/01/16 at 01:00; Stop 12/15/16 at 02:29 DILLON MARTÍNEZ MD Dec 01, 2016 13:29
--- NOTE | 2016-12-01 13:39 | CONS ---
Date/Time of Note Date/Time of Note DATE: 12/01/16 TIME: 13:36 Assessment/Plan Assessment/Plan Chief Complaint/Hosp Course 56 yo female with malignant ascites who has since been diagnosed with FIGO stage III ovarian cancer. Surg path reveals an 8.5 cm tumor in right ovary, 1.2 cm tumor in L ovary and 1.5 cm tumor in L fallopian tube. The disease noted to involve the omentum, spleen, uterus, cervix and diaphragm. # ovarian ca, papillary serous , FIGO stage IIIc -now cycle 1 day 2 of dose dense carboplatin and taxol. next dose due next Sunday - s/p port a cath placement - cont physical therapy - continue to advance diet as tolerated # Anemia - post op and secondary to iron deficiency -transfusion parameter per Dr. Garcia -s/p 3 days of IV iron to help maintain her Hg #Leukocytosis - I believe this is likely secondary to her splenectomy. pt does not appear actively infected - now that patient has the port, we can dc the central line and send the tip for culture - appreciate ID [email or web address] consider discontinuing antibiotics Approximately 40 min were spent at patient's bedside and in coordination of her care Problems: Consultation Date/Type/Reason Admit Date/Time Nov 09, 2016 at 00:55 Initial Consult Date 11/17/16 Type of Consultation: Hematology Reason for Consultation ovarian cancer Referring Provider: JYOTHI BENAVIDES 24 HR Interval Summary Free Text/Dictation pt tolerated chemotherapy well. no nausea no vomiting. ambulating Exam/Review of Systems Vital Signs Vitals Vital Signs Date Time Temp Pulse Resp B/P Pulse Ox O2 Delivery O2 Flow Rate FiO2 12/01/16 08:23 97.8 96 18 131/61 100 12/01/16 06:15 Nasal Cannula 2.0 11/30/16 18:23 21 Intake and Output 11/30/16 11/30/16 12/01/16 15:00 23:00 07:00 Intake Total 450 ml 816.5 ml 1520 ml Output Total 900 ml Balance 450 ml -83.5 ml 1520 ml Exam Constitutional: alert, oriented Head: atraumatic, normocephalic Eyes: nl conjunctiva ENMT: nl external ears & nose Neck: non-tender, supple Respiratory: clear to auscultation, normal air movement Cardiovascular: regular rate and rhythm Gastrointestinal: surgical scars, tender Musculoskeletal: nl extremities to inspection Results Result Diagram: 12/01/16 0700 12/01/16 0700 Results 24 hrs Laboratory Tests Test 12/01/16 07:00 White Blood Count 15.2 H Red Blood Count 3.48 L Hemoglobin 10.2 L Hematocrit 31.0 L Mean Corpuscular Volume 89.1 Mean Corpuscular Hemoglobin 29.3 Mean Corpuscular Hemoglobin Concent 32.9 Red Cell Distribution Width 19.3 H Platelet Count 937 H Mean Platelet Volume 9.4 Neutrophils % 93.2 H Lymphocytes % 4.0 L Monocytes % 1.9 Eosinophils % 0.0 Basophils % 0.1 Nucleated Red Blood Cells % 0.0 Neutrophils # 14.1 H Lymphocytes # 0.6 L Monocytes # 0.3 Eosinophils # 0.0 Basophils # 0.0 Nucleated Red Blood Cells # 0.0 Sodium Level 136 Potassium Level 3.5 Chloride Level 105 Carbon Dioxide Level 25 Anion Gap 10 Blood Urea Nitrogen 6 L Creatinine 0.57 Glucose Level 107 Calcium Level 7.5 L Medications Medications Current Medications Metoclopramide HCl (Reglan) 10 mg Q6H PRN IV NAUSEA AND/OR VOMITING Last administered on 11/16/16 21:15; Admin Dose 10 MG; Start 11/09/16 at 02:00 Acetaminophen (Tylenol Tab) 650 mg Q6H PRN PO PAIN LEVEL 1-3 OR FEVER Last administered on 12/01/16 01:04; Admin Dose 650 MG; Start 11/09/16 at 02:00 Acetaminophen/ Hydrocodone Bitart ([place] (5/325)) 1 tab Q6H PRN PO MODERATE PAIN LEVEL 4-6 Last administered on 11/28/16 15:42; Admin Dose 1 TAB; Start 11/09/16 at 02:00 Acetaminophen/ Hydrocodone Bitart 2 tab 2 tab Q6H PRN PO SEVERE PAIN LEVEL 7- 10 Last administered on 12/01/16 04:55; Admin Dose 2 TAB; Start 11/09/16 at 02: 00 Sodium Chloride (NS) 250 ml @ 250 mls/hr PRN PRN IV SBP <80 Last administered on 11/11/16 00:52; Admin Dose 250 MLS/HR; Start 11/10/16 at 17:30 Lorazepam (Ativan) 1 mg Q4H PRN IV ANXIETY Last administered on 12/01/16 10:39 ; Admin Dose 1 MG; Start 11/14/16 at 23:30 Al Hydrox/Mg Hydrox/Simethicone (Mag-Al Plus) 30 ml Q6H PRN PO GASTROINTESTINAL UPSET Last administered on 11/29/16 21:37; Admin Dose 30 ML; Start 11/16/16 at 21:30 Ondansetron HCl (Zofran Inj) 4 mg Q6H PRN IV NAUSEA AND/OR VOMITING Last administered on 11/26/16 09:30; Admin Dose 4 MG; Start 11/18/16 at 14:00 Pantoprazole 40 mg 40 mg BID@06,18 IV Last administered on 12/01/16 06:02; Admin Dose 40 MG; Start 11/20/16 at 18:00 Metronidazole 100 ml @ 100 mls/hr Q8 IVPB Last administered on 12/01/16 06:00 ; Admin Dose 100 MLS/HR; Start 11/20/16 at 22:00 Piperacillin Sod/ Tazobactam Sod (Zosyn 3.375gm/ 100 ml (Pmx)) 100 ml @ 200 mls /hr Q6 IVPB Last administered on 12/01/16 13:35; Admin Dose 200 MLS/HR; Start 11/21/16 at 00:00 Phenol (Cepastat Lozenge) 1 lozenge Q1H PRN MT throat irritation Last administered on 11/24/16 20:38; Admin Dose 1 LOZENGE; Start 11/21/16 at 10:30 Miscellaneous Information 1 ea NOTE XX ; Start 11/21/16 at 12:00 Glucose (Glutose) 15 gm Q15M PRN PO DECREASED GLUCOSE Last administered on 11/29 09:35; Admin Dose 15 GM; Start 11/21/16 at 12:00 Glucose (Glutose) 22.5 gm Q15M PRN PO DECREASED GLUCOSE; Start 11/21/16 at 12: 00 Dextrose (D50w Syringe) 25 ml Q15M PRN IV DECREASED GLUCOSE Last administered on 11/29/16 10:05; Admin Dose 25 ML; Start 11/21/16 at 12:00 Dextrose (D50w Syringe) 50 ml Q15M PRN IV DECREASED GLUCOSE; Start 11/21/16 at 12:00 Glucagon (Glucagen) 1 mg Q15M PRN IM DECREASED GLUCOSE; Start 11/21/16 at 12:00 Glucose (Glutose) 15 gm Q15M PRN BUCCAL DECREASED GLUCOSE; Start 11/21/16 at 12 :00 Furosemide (Lasix) 20 mg DAILY IV Last administered on 12/01/16 08:25; Admin Dose 20 MG; Start 11/21/16 at 12:30 Miscellaneous Information 1 ea 1 ea NOTE XX ; Start 11/24/16 at 14:00 Sodium Chloride (NS) 1,000 ml @ 100 mls/hr Q10H IV Last administered on 10:39; Admin Dose 100 MLS/HR; Start 11/30/16 at 21:00 Methylprednisolone Sodium Succinate (Solu-Medrol) 60 mg Q4H PRN IV ALLERGIC REACTION; Start 11/30/16 at 21:00 Diphenhydramine HCl (Benadryl) 25 mg Q4H PRN IV ALLERGIC REACTION; Start at 21:00 Meperidine HCl 25 mg 25 mg Q4H PRN IV REACTION; Start 11/30/16 at 21:00 Ondansetron HCl 8 mg/Sodium Chloride 54 ml @ 216 mls/hr Q8H PRN IV NAUSEA AND/ OR VOMITING; Start 11/30/16 at 21:00 Paclitaxel/ Paclitaxel/Sodium Chloride (taxOL/taxOL/NS) 250 ml @ 166.667 mls/ hr Q7D IV Last administered on 12/01/16 02:28; Admin Dose 166.667 MLS/HR; Start 12/01/16 at 01:00; Stop 12/15/16 at 02:29 FLORINDA COATES M.D. Dec 01, 2016 13:38
[2016-12-02] VITALS: BP 127/60; RESP 18
[2016-12-02] MEDS: PIPER-TAZO 3.375 GM IV (PMX) 100 ML IVPB SCH ×4 (00:16→18:24)
[2016-12-02] MEDS: ALBUTEROL 18 GM INHALER INH SCH ×4 (02:00→20:31)
[2016-12-02] MEDS: HYDROCODONE/APAP (5/325) TAB PO PRN ×2 (02:38→20:31)
[2016-12-02] MEDS: SOD CHLORIDE 0.9% 1,000 ML IV SCH ×2 (03:00→05:58)
[2016-12-02] MEDS: metroNIDAZOLE 500 MG/NS (PMX) 100 ML IVPB SCH ×3 (05:56→23:00)
[2016-12-02] MEDS: PANTOPRAZOLE 40 MG INJ IV SCH ×2 (05:56→18:24)
[2016-12-02 06:01] VITALS: BP 127/69; PULSE 76; RESP 18
[2016-12-02 06:22] LABS: ADD SCAN DIFF NO
[2016-12-02 06:39] LABS: ABNORMAL IP MESSAGE 1; BASOPHILS % 0.1 % (0.0-2.0); HEMOGLOBIN 9.5 g/dl (12.0-16.0); LYMPHOCYTES # 0.8 10^3/ul (0.8-2.9); LYMPHOCYTES % 3.7 % (15.0-51.0); MEAN CORPUSCULAR HEMOGLOBIN 29.5 pg (29.0-33.0); MEAN CORPUSCULAR HGB CONC 32.8 g/dl (32.0-37.0); MEAN CORPUSCULAR VOLUME 90.1 fl (82.0-101.0); MEAN PLATELET VOLUME 9.8 fl (7.4-10.4); MONOCYTE # 0.9 10^3/ul (0.3-0.9); MONOCYTES % 4.1 % (0.0-11.0); NEUTROPHIL # 20.2 10^3/ul (1.6-7.5); NEUTROPHILS % 91.5 % (39.0-77.0); PLATELET COUNT 842 10^3/UL (140-415); RED BLOOD COUNT 3.22 10^6/ul (4.20-5.40); RED CELL DISTRIBUTION WIDTH 19.9 % (11.5-14.5); WHITE BLOOD COUNT 22.1 10^3/ul (4.8-10.8)
[2016-12-02 07:07] LABS: CREATININE 0.63 mg/dl (0.44-1.00)
[2016-12-02 07:08] LABS: CALCIUM 7.3 mg/dl (8.4-10.2)
[2016-12-02 07:11] LABS: POTASSIUM 2.9 mmol/L (3.5-5.1)
[2016-12-02 08:12] VITALS: BP 108/69; RESP 16
[2016-12-02] MEDS: FUROSEMIDE 20 MG INJ IV SCH (08:24)
--- NOTE | 2016-12-02 12:16 | PN ---
Date/Time of Note Date/Time of Note DATE: 12/02/16 TIME: 12:09 Assessment/Plan VTE Prophylaxis VTE Prophylaxis Intervention: SCD's Lines/Catheters IV [facility] porthacath Urinary Cath still in place: No Assessment/Plan Chief Complaint/Hosp Course Assessment/Plan: 56 F with: 1. Newly diagnosed Metastatic Cancer, most likely of Ovarian origin, Stage IIIc * S/p Extended hysterectomy with bilateral salpingo-oophorectomy, Bilateral ureteral dissection with repositioning, Splenectomy with distal pancreatectomy, Omentectomy with cytoreduction, Pelvic and aortic lymph node dissection and Diaphragm stripping POD # 15. 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 - Continue post op care per Manager Review onc - continue chemo inhouse per Heme/Onc rec's 2. S/p shock likely 2/2 volume depletion from third spacing with probable component of sepsis: probably from PNA: ?resolved - Continue abx for a total of 2 weeks at least -but with more elevated WBC today - will order for repeat blood cx and UA x 1 3. Malignant Ascites - s/p paracentesis on admission and during surgery 4. S/p Vent dependent Resp Failure - s/p successful Extubation 5. Diuretic induced renal insufficiency: resolved 5. Mild Pancreatitis: resolved 6. Hx of Hypertension: issue has been Hypotension from shock. Now BP stable off pressors - monitor 7. Normocytic Anemia 2/2 Iron deficiency: s/p IV iron replacement 8. diet - off TPNB now, continue PO diet as tolerated. 9. Anasarca likely 2/2 hypoalbuminemia 10. Dispo: if repeat cx's are neg, then d/c home with FWW, f/u appointments, and abx for total 2 wks tx. PROPHYLAXIS: SCDs/ PPI Problems: Subjective 24 Hr Interval Summary Free Text/Dictation Pt had no acute events overnight. Has higher WBC however. Exam/Review of Systems Vital Signs Vitals Vital Signs Date Time Temp Pulse Resp B/P Pulse Ox O2 Delivery O2 Flow Rate FiO2 12/02/16 08:12 98.0 81 16 108/69 99 12/02/16 06:01 Nasal Cannula 2.0 11/30/16 18:23 21 Intake and Output 12/01/16 12/01/16 12/02/16 15:00 23:00 07:00 Intake Total 700 ml 1980 ml 1180 ml Balance 700 ml 1980 ml 1180 ml Exam Constitutional: alert, oriented Psych: nl mood/affect Head: normocephalic Eyes: PERRL, No icteric Respiratory: clear to auscultation Cardiovascular: regular rate and rhythm, No murmurs/extra sounds Gastrointestinal: bowel sounds (hypoactive), slightly distended, surgical scars Extremities: No edema Neurological: nl mental status Results Result Diagram: 12/02/16 0455 12/02/16 0455 Results 24 hrs Laboratory Tests Test 12/02/16 04:55 12/02/16 09:25 White Blood Count 22.1 #H Red Blood Count 3.22 L Hemoglobin 9.5 L Hematocrit 29.0 L Mean Corpuscular Volume 90.1 Mean Corpuscular Hemoglobin 29.5 Mean Corpuscular Hemoglobin Concent 32.8 Red Cell Distribution Width 19.9 H Platelet Count 842 H Mean Platelet Volume 9.8 Neutrophils % 91.5 H Lymphocytes % 3.7 L Monocytes % 4.1 Eosinophils % 0.0 Basophils % 0.1 Nucleated Red Blood Cells % 0.0 Neutrophils # 20.2 H Lymphocytes # 0.8 Monocytes # 0.9 Eosinophils # 0.0 Basophils # 0.0 Nucleated Red Blood Cells # 0.0 Sodium Level 141 Potassium Level 2.9 *L Chloride Level 103 Carbon Dioxide Level 29 Anion Gap 12 Blood Urea Nitrogen 13 Creatinine 0.63 Glucose Level 109 Calcium Level 7.3 L Lab Scanned Report BLOOD TRANSFUSION Medications Medications Current Medications Metoclopramide HCl (Reglan) 10 mg Q6H PRN IV NAUSEA AND/OR VOMITING Last administered on 11/16/16 21:15; Admin Dose 10 MG; Start 11/09/16 at 02:00 Acetaminophen (Tylenol Tab) 650 mg Q6H PRN PO PAIN LEVEL 1-3 OR FEVER Last administered on 12/01/16 01:04; Admin Dose 650 MG; Start 11/09/16 at 02:00 Acetaminophen/ Hydrocodone Bitart ([place] (5/325)) 1 tab Q6H PRN PO MODERATE PAIN LEVEL 4-6 Last administered on 11/28/16 15:42; Admin Dose 1 TAB; Start 11/09/16 at 02:00 Acetaminophen/ Hydrocodone Bitart 2 tab 2 tab Q6H PRN PO SEVERE PAIN LEVEL 7- 10 Last administered on 12/02/16 02:38; Admin Dose 2 TAB; Start 11/09/16 at 02: 00 Sodium Chloride (NS) 250 ml @ 250 mls/hr PRN PRN IV SBP <80 Last administered on 11/11/16 00:52; Admin Dose 250 MLS/HR; Start 11/10/16 at 17:30 Lorazepam (Ativan) 1 mg Q4H PRN IV ANXIETY Last administered on 12/01/16 22:23 ; Admin Dose 1 MG; Start 11/14/16 at 23:30 Al Hydrox/Mg Hydrox/Simethicone (Mag-Al Plus) 30 ml Q6H PRN PO GASTROINTESTINAL UPSET Last administered on 11/29/16 21:37; Admin Dose 30 ML; Start 11/16/16 at 21:30 Ondansetron HCl (Zofran Inj) 4 mg Q6H PRN IV NAUSEA AND/OR VOMITING Last administered on 11/26/16 09:30; Admin Dose 4 MG; Start 11/18/16 at 14:00 Pantoprazole 40 mg 40 mg BID@06,18 IV Last administered on 12/02/16 05:56; Admin Dose 40 MG; Start 11/20/16 at 18:00 Metronidazole 100 ml @ 100 mls/hr Q8 IVPB Last administered on 12/02/16 05:56 ; Admin Dose 100 MLS/HR; Start 11/20/16 at 22:00 Piperacillin Sod/ Tazobactam Sod (Zosyn 3.375gm/ 100 ml (Pmx)) 100 ml @ 200 mls /hr Q6 IVPB Last administered on 12/02/16 07:12; Admin Dose 200 MLS/HR; Start 11/21/16 at 00:00 Phenol (Cepastat Lozenge) 1 lozenge Q1H PRN MT throat irritation Last administered on 11/24/16 20:38; Admin Dose 1 LOZENGE; Start 11/21/16 at 10:30 Miscellaneous Information 1 ea NOTE XX ; Start 11/21/16 at 12:00 Glucose (Glutose) 15 gm Q15M PRN PO DECREASED GLUCOSE Last administered on 11/29 09:35; Admin Dose 15 GM; Start 11/21/16 at 12:00 Glucose (Glutose) 22.5 gm Q15M PRN PO DECREASED GLUCOSE; Start 11/21/16 at 12: 00 Dextrose (D50w Syringe) 25 ml Q15M PRN IV DECREASED GLUCOSE Last administered on 11/29/16 10:05; Admin Dose 25 ML; Start 11/21/16 at 12:00 Dextrose (D50w Syringe) 50 ml Q15M PRN IV DECREASED GLUCOSE; Start 11/21/16 at 12:00 Glucagon (Glucagen) 1 mg Q15M PRN IM DECREASED GLUCOSE; Start 11/21/16 at 12:00 Glucose (Glutose) 15 gm Q15M PRN BUCCAL DECREASED GLUCOSE; Start 11/21/16 at 12 :00 Furosemide (Lasix) 20 mg DAILY IV Last administered on 12/02/16 08:24; Admin Dose 20 MG; Start 11/21/16 at 12:30 Miscellaneous Information 1 ea 1 ea NOTE XX ; Start 11/24/16 at 14:00 Sodium Chloride (NS) 1,000 ml @ 100 mls/hr Q10H IV Last administered on 05:58; Admin Dose 100 MLS/HR; Start 11/30/16 at 21:00 Methylprednisolone Sodium Succinate (Solu-Medrol) 60 mg Q4H PRN IV ALLERGIC REACTION; Start 11/30/16 at 21:00 Diphenhydramine HCl (Benadryl) 25 mg Q4H PRN IV ALLERGIC REACTION; Start at 21:00 Meperidine HCl 25 mg 25 mg Q4H PRN IV REACTION; Start 11/30/16 at 21:00 Ondansetron HCl 8 mg/Sodium Chloride 54 ml @ 216 mls/hr Q8H PRN IV NAUSEA AND/ OR VOMITING; Start 11/30/16 at 21:00 Paclitaxel 100 mg/ Paclitaxel 35 mg/ Sodium Chloride 250 ml @ 166.667 mls/hr Q7D IV Last administered on 12/01/16 02:28; Admin Dose 166.667 MLS/HR; Start 12/01/16 at 01:00; Stop 12/15/16 at 02:29 Potassium Chloride (KCl 40 MEQ/250 ML NS) 250 ml @ 62.5 mls/hr ONCE ONCE IVPB ; Start 12/02/16 at 13:00; Stop 12/02/16 at 16:59 QUINCY KU Dec 02, 2016 12:16
[2016-12-02] MEDS ORDERED: POTASSIUM CHLORIDE 250 ML IVPB ONE (13:00)
[2016-12-02 19:20] VITALS: BP 137/63; RESP 18
[2016-12-02] MEDS ORDERED: LIDOCAINE 2% VISC 15 ML CUP PO PRN (21:30)
[2016-12-03] VITALS: BP 127/60; PULSE 85; RESP 18
[2016-12-03] MEDS: PIPER-TAZO 3.375 GM IV (PMX) 100 ML IVPB SCH ×4 (00:45→17:28)
[2016-12-03] MEDS: SOD CHLORIDE 0.9% 1,000 ML IV SCH ×3 (00:45→18:11)
[2016-12-03] MEDS: LORAZEPAM 2 MG INJ IV PRN (00:46)
[2016-12-03 01:26] LABS: ADD UMIC YES; URINE BILIRUBIN (Dip) NEGATIVE (NEGATIVE); URINE BLOOD (Dip) TRACE (NEGATIVE); URINE COLOR LT. YELLOW (YELLOW); URINE GLUCOSE (Dip) NEGATIVE (NEGATIVE); URINE KETONES (Dip) NEGATIVE (NEGATIVE); URINE LEUKOCYTE ESTERASE (Dip) NEGATIVE (NEGATIVE); URINE NITRITE (Dip) NEGATIVE (NEGATIVE); URINE TOTAL PROTEIN (Dip) NEGATIVE (NEGATIVE); URINE UROBILINOGEN (Dip) 0.2 E.U./dL (0.1-1.0)
[2016-12-03] MEDS: ALBUTEROL 18 GM INHALER INH SCH ×3 (02:00→14:00)
[2016-12-03 02:25] LABS: BACTERIA,URINE OCCASIONAL; SQUAMOUS EPITHELIAL CELL,UR MANY; URINE RBCS 0-2 /HPF (0)
[2016-12-03 05:00] VITALS: BP 139/67; PULSE 82; RESP 18
[2016-12-03] MEDS: HYDROCODONE/APAP (5/325) TAB PO PRN ×2 (05:00→14:23)
[2016-12-03 05:41] LABS: ADD SCAN DIFF NO
[2016-12-03 06:06] LABS: BASOPHILS % 0.1 % (0.0-2.0); EOSINOPHILS # 0.1 10^3/ul (0.0-0.5); EOSINOPHILS % 0.6 % (0.0-7.0); HEMATOCRIT 27.9 % (37.0-47.0); HEMOGLOBIN 9.3 g/dl (12.0-16.0); LYMPHOCYTES # 1.3 10^3/ul (0.8-2.9); LYMPHOCYTES % 12.6 % (15.0-51.0); MEAN CORPUSCULAR HEMOGLOBIN 29.9 pg (29.0-33.0); MEAN CORPUSCULAR HGB CONC 33.3 g/dl (32.0-37.0); MEAN CORPUSCULAR VOLUME 89.7 fl (82.0-101.0); MEAN PLATELET VOLUME 9.9 fl (7.4-10.4); MONOCYTE # 0.3 10^3/ul (0.3-0.9); MONOCYTES % 2.8 % (0.0-11.0); NEUTROPHIL # 8.8 10^3/ul (1.6-7.5); NEUTROPHILS % 83.5 % (39.0-77.0); PLATELET COUNT 747 10^3/UL (140-415); RED BLOOD COUNT 3.11 10^6/ul (4.20-5.40); RED CELL DISTRIBUTION WIDTH 19.5 % (11.5-14.5); WHITE BLOOD COUNT 10.5 10^3/ul (4.8-10.8)
[2016-12-03] MEDS: metroNIDAZOLE 500 MG/NS (PMX) 100 ML IVPB SCH ×2 (06:11→14:14)
[2016-12-03] MEDS: PANTOPRAZOLE 40 MG INJ IV SCH ×2 (06:11→17:24)
[2016-12-03 06:12] LABS: CALCIUM 7.2 mg/dl (8.4-10.2); CREATININE 0.53 mg/dl (0.44-1.00)
[2016-12-03 08:07] VITALS: BP 112/56; RESP 17
[2016-12-03] MEDS: FUROSEMIDE 20 MG INJ IV SCH (08:45)
[2016-12-03] MEDS ORDERED: POTASSIUM CHLORIDE (SR) 20 MEQ TAB PO STA (10:43)
--- NOTE | 2016-12-03 10:45 | PDOCDIS ---
Discharge Instructions CONDITION Patient Condition: Stable HOME CARE INSTRUCTIONS: Special Diet: 1800 ADA ACTIVITY: Activity Restrictions: Slowly Increase Activity FOLLOW UP/APPOINTMENTS Appointments Please see your doctor in the clinic in 1 week. QUINCY KU Dec 03, 2016 10:45
[2016-12-03] MEDS ORDERED: ALBU18HF INH (10:53)
[2016-12-03] MEDS ORDERED: FURO40TA4 PO (10:53)
[2016-12-03] MEDS ORDERED: SPIR100T PO (10:53)
--- NOTE | 2016-12-03 11:21 | DS ---
DATE OF ADMISSION: 11/09/2016 DATE OF DISCHARGE: 12/03/2016 HOSPITAL COURSE: This is a 56-year-old female originally admitted on 11/09/2016, being discharged h ome on 12/03/2016. The patient initially came in with abdominal pain. She was seen by multiple spe cialists during this hospital stay including hematology/oncology team, TOLL LINE REPAIRER/ONC team, pulmonary team, and infectious disease team. The patient was diagnosed with the new diagnosis of metastatic cancer , most likely of ovarian origin, stage III. She underwent an extended hysterectomy with bilateral s alpingo-oophorectomy, also bilateral urethral dissection with repositioning. She also had a splenec kasey with distal pancreatectomy, omentectomy as well, and cytoreduction, pelvic and aortic lymph nod e dissection, and diaphragm stripping as the patient before that was found with malignant ascites. She also had some renal insufficiency that was treated with diuretics. She had some leukocytosis wh ich resolved as well. She had anasarca, likely secondary to hypoalbuminemia as well. The patient a gain, after she underwent the operation, spent some time in the ICU and then was transferred to med/ surg floor. Afterward, she did receive chemotherapy in house as well. The patient tolerated well. Her electrolytes were repleted as well as needed. She worked with physical therapy and was able to ambulate and tolerate a p.o. diet, and her vital signs were stable on day of discharge. After gett ing clearance from the hematology/oncology team and TOLL LINE REPAIRER/ONC surgery teams, the patient will be disch arged home today in improved condition. DISCHARGE MEDICATIONS: She will be sent with 1. Albuterol HFA 2 puffs inhaled q. 6 p.r.n. 2. Lasix 40 mg daily. 3. Spironolactone 100 mg daily. 4. Levaquin 750 mg p.o. daily for 3 days. 5. [place] 5/325, one tab p.o. q. 6 p.r.n. for pain. She will need to follow up with primary care doctor and hematology/oncology doctor in the clinic in the next 1 to 2 weeks. FINAL DIAGNOSES: 1. Abdominal pain secondary to newly diagnosed metastatic cancer status post hysterectomy, BSO, spl enectomy, distal pancreatectomy, urethral dissection with repositioning, and cytoreduction with omen tectomy and lymph node dissection. Also status post chemotherapy as well, most likely source being ovarian origin, stage IIIC. 2. Status post shock secondary to volume depletion from third spacing with possible component of se psis, now improved. 3. Malignant ascites, see #1. 4. Ventilator dependent respiratory failure, resolved. 5. Diuretic induced renal insufficiency, resolved. 6. Mild pancreatitis, resolved. 7. History of essential hypertension. 8. Normocytic anemia. 9. Cirrhosis. 10. Prior history of cholecystectomy. 11. Prior history of tubal ligation. Time spent discharging the patient: 50 minutes. Dictated By: QUINCY ODONNELL Conf#: [id number] DID#: [id number]
[2016-12-03 12:45] VITALS: BP 125/71; PULSE 86; RESP 16
[2016-12-03] MEDS ORDERED: HEPARIN (100 UNITS/ML) 5 ML SYG CATHETER ONE (17:30)
--- NOTE | 2016-12-03 18:37 | CONS ---
Date/Time of Note Date/Time of Note DATE: 12/03/16 TIME: 18:29 Assessment/Plan Assessment/Plan Chief Complaint/Hosp Course ID PROGRESS NOTE TOTAL ABX DAY # 16=> Zosyn + Flagyl 24H INTERVAL SUMMARY * DC planning in process -> New chemo access placed 11/29 LEFT INTERNAL JUGULAR PORT PLACEMENT * A/A/O - she is dressed, feeling well, afebrile, VSS, family present, she is smiling and ready to DC home today * No fevers, WBC has normalized - she has received adequate ABX course for the concern of HCAP and Peritonitis PHYSICAL EXAMINATION: GENERAL: VSS, NAD, A/A/O -sitting up in chair dressed in street clothes, pending DC HEENT: Unremarkable NECK: Supple, full ROM CHEST: Equal chest rise bilaterally, without dyspnea on observation HEART: Pulse RRR ABDOMEN: Distended; still has ABD pads for collection of peritoneal fluid draining EXTREMITIES: Warm-> Ambulatory SKIN: Warm, dry ID ASSESSMENT: 56 yo F admitted with pelvic mass w/ascites on 11/09/2016: 1. Dx w/Stage III ovarian cancer w/pelvic mass & malignant ascites * POD # => 11/17/16 status post extended hysterectomy with bilateral salpingo- oophorectomy, in addition to: * Bilateral ureteral dissection with repositioning * Splenectomy with distal pancreatectomy * Omentectomy with cytoreduction * Pelvic and aortic lymph node dissection 2. SIRS w/leukocytosis=> RESOLVED: No fevers, WBC normalized 3. UTI ->(+)burning dysuria -> FC inserted w/11/25/16 UA: UA (+)Nitrite, (-) LeukEsterase, (+)WBCs 2-5, (+)RBCs 10-20, few bacteria * 11/20/16 Urine Cx URINE CULTURE Final NO GROWTH AFTER 48 HOURS 4. Malignant ascites w/JEWEL drain intact -> Presumptive bacterial peritonitis post op = HAS BEEN TREATED FOR THIS 16 DAYS ABX 5. Hx of cirrhosis 6. Pulmonary edema per CXR 11/26: Hazy opacification of the lung ruby, most prominent inferiorly. 7. Status post respiratory failure, extubated postoperatively => RESOLVED 8. QUERY residual HCAP post intubation - pulmonary status is stable on room air without dyspnea * => HAS BEEN TREATED FOR THIS 16 DAYS ABX 9. NPO status on TPN via R-IJ TLC INVASIVES: *NEW CHEMO PORT PLACED 11/29 ABX ALLERGIES: NKDA CURRENT ABX: TOTAL ABX DAY # 16=> Zosyn + Flagyl ID RECOMMENDATIONS: 1. DC PLANNING FOR TODAY => Patient is no longer septic, has received adequate ABX coverage with resolution of peritonitis 2. Concur with DC plan in process * Thank you for allow "Team MD Jillian" consultants participation in the care of this delightful lady Problems: Consultation Date/Type/Reason Admit Date/Time Nov 09, 2016 at 00:55 Initial Consult Date 11/17/16 Type of Consultation: ID Referring Provider: JYOTHI BENAVIDES Exam/Review of Systems Vital Signs Vitals Vital Signs Date Time Temp Pulse Resp B/P Pulse Ox O2 Delivery O2 Flow Rate FiO2 12/03/16 16:34 21 12/03/16 12:45 98.0 86 16 125/71 95 Room Air 12/02/16 16:50 3.0 Intake and Output 12/02/16 12/02/16 12/03/16 15:00 23:00 07:00 Intake Total 200 ml 2150 ml 1700 ml Balance 200 ml 2150 ml 1700 ml Results Result Diagram: 12/03/16 0456 12/03/16 0456 Results 24 hrs Laboratory Tests Test 12/02/16 22:39 12/03/16 04:56 12/03/16 13:50 Urine Color LT. YELLOW Urine Clarity CLEAR Urine pH 7.5 Urine Specific [place] 1.015 Urine Ketones NEGATIVE Urine Nitrite NEGATIVE Urine Bilirubin NEGATIVE Urine Urobilinogen 0.2 E.U./dL Urine Leukocyte Esterase NEGATIVE Urine Microscopic RBC 0-2 Urine Microscopic WBC 0-2 Urine Squamous Epithelial Cells MANY Urine Bacteria OCCASIONAL Urine Yeast OCCASIONAL Urine Hemoglobin TRACE Urine Glucose NEGATIVE Urine Total Protein NEGATIVE White Blood Count 10.5 # Red Blood Count 3.11 L Hemoglobin 9.3 L Hematocrit 27.9 L Mean Corpuscular Volume 89.7 Mean Corpuscular Hemoglobin 29.9 Mean Corpuscular Hemoglobin Concent 33.3 Red Cell Distribution Width 19.5 H Platelet Count 747 H Mean Platelet Volume 9.9 Neutrophils % 83.5 H Lymphocytes % 12.6 L Monocytes % 2.8 Eosinophils % 0.6 Basophils % 0.1 Nucleated Red Blood Cells % 0.0 Neutrophils # 8.8 H Lymphocytes # 1.3 Monocytes # 0.3 Eosinophils # 0.1 Basophils # 0.0 Nucleated Red Blood Cells # 0.0 Sodium Level 137 Potassium Level 3.0 L Chloride Level 106 Carbon Dioxide Level 30 Anion Gap 4 #L Blood Urea Nitrogen 11 Creatinine 0.53 Glucose Level 72 Calcium Level 7.2 L Troponin I < 0.012 Medications Medications Current Medications Metoclopramide HCl (Reglan) 10 mg Q6H PRN IV NAUSEA AND/OR VOMITING Last administered on 11/16/16 21:15; Admin Dose 10 MG; Start 11/09/16 at 02:00 Acetaminophen (Tylenol Tab) 650 mg Q6H PRN PO PAIN LEVEL 1-3 OR FEVER Last administered on 12/01/16 01:04; Admin Dose 650 MG; Start 11/09/16 at 02:00 Acetaminophen/ Hydrocodone Bitart (Ralph (5/325)) 1 tab Q6H PRN PO MODERATE PAIN LEVEL 4-6 Last administered on 11/28/16 15:42; Admin Dose 1 TAB; Start 11/09/16 at 02:00 Acetaminophen/ Hydrocodone Bitart 2 tab 2 tab Q6H PRN PO SEVERE PAIN LEVEL 7- 10 Last administered on 12/03/16 14:23; Admin Dose 2 TAB; Start 11/09/16 at 02: 00 Sodium Chloride (NS) 250 ml @ 250 mls/hr PRN PRN IV SBP <80 Last administered on 11/11/16 00:52; Admin Dose 250 MLS/HR; Start 11/10/16 at 17:30 Lorazepam (Ativan) 1 mg Q4H PRN IV ANXIETY Last administered on 12/03/16 00:46 ; Admin Dose 1 MG; Start 11/14/16 at 23:30 Al Hydrox/Mg Hydrox/Simethicone (Mag-Al Plus) 30 ml Q6H PRN PO GASTROINTESTINAL UPSET Last administered on 11/29/16 21:37; Admin Dose 30 ML; Start 11/16/16 at 21:30 Ondansetron HCl (Zofran Inj) 4 mg Q6H PRN IV NAUSEA AND/OR VOMITING Last administered on 11/26/16 09:30; Admin Dose 4 MG; Start 11/18/16 at 14:00 Pantoprazole 40 mg 40 mg BID@06,18 IV Last administered on 12/03/16 17:24; Admin Dose 40 MG; Start 11/20/16 at 18:00 Metronidazole 100 ml @ 100 mls/hr Q8 IVPB Last administered on 12/03/16 14:14 ; Admin Dose 100 MLS/HR; Start 11/20/16 at 22:00 Piperacillin Sod/ Tazobactam Sod (Zosyn 3.375gm/ 100 ml (Pmx)) 100 ml @ 200 mls /hr Q6 IVPB Last administered on 12/03/16 11:41; Admin Dose 200 MLS/HR; Start 11/21/16 at 00:00 Phenol (Cepastat Lozenge) 1 lozenge Q1H PRN MT throat irritation Last administered on 11/24/16 20:38; Admin Dose 1 LOZENGE; Start 11/21/16 at 10:30 Miscellaneous Information 1 ea NOTE XX ; Start 11/21/16 at 12:00 Glucose (Glutose) 15 gm Q15M PRN PO DECREASED GLUCOSE Last administered on 11/29 09:35; Admin Dose 15 GM; Start 11/21/16 at 12:00 Glucose (Glutose) 22.5 gm Q15M PRN PO DECREASED GLUCOSE; Start 11/21/16 at 12: 00 Dextrose (D50w Syringe) 25 ml Q15M PRN IV DECREASED GLUCOSE Last administered on 11/29/16 10:05; Admin Dose 25 ML; Start 11/21/16 at 12:00 Dextrose (D50w Syringe) 50 ml Q15M PRN IV DECREASED GLUCOSE; Start 11/21/16 at 12:00 Glucagon (Glucagen) 1 mg Q15M PRN IM DECREASED GLUCOSE; Start 11/21/16 at 12:00 Glucose (Glutose) 15 gm Q15M PRN BUCCAL DECREASED GLUCOSE; Start 11/21/16 at 12 :00 Furosemide (Lasix) 20 mg DAILY IV Last administered on 12/03/16 08:45; Admin Dose 20 MG; Start 11/21/16 at 12:30 Miscellaneous Information 1 ea 1 ea NOTE XX ; Start 11/24/16 at 14:00 Sodium Chloride (NS) 1,000 ml @ 100 mls/hr Q10H IV Last administered on 00:45; Admin Dose 100 MLS/HR; Start 11/30/16 at 21:00 Methylprednisolone Sodium Succinate (Solu-Medrol) 60 mg Q4H PRN IV ALLERGIC REACTION; Start 11/30/16 at 21:00 Diphenhydramine HCl (Benadryl) 25 mg Q4H PRN IV ALLERGIC REACTION; Start at 21:00 Meperidine HCl 25 mg 25 mg Q4H PRN IV REACTION; Start 11/30/16 at 21:00 Ondansetron HCl 8 mg/Sodium Chloride 54 ml @ 216 mls/hr Q8H PRN IV NAUSEA AND/ OR VOMITING; Start 11/30/16 at 21:00 Paclitaxel/ Paclitaxel/Sodium Chloride (taxOL/taxOL/NS) 250 ml @ 166.667 mls/ hr Q7D IV Last administered on 12/01/16 02:28; Admin Dose 166.667 MLS/HR; Start 12/01/16 at 01:00; Stop 12/15/16 at 02:29 Lidocaine (Xylocaine (Viscous)) 10 ml Q4 PRN PO Mouth sore Last administered on 12/02/16 23:00; Admin Dose 10 ML; Start 12/02/16 at 21:30 NIXON VALDERRAMA NP Dec 03, 2016 18:37
--- NOTE | 2016-12-04 15:08 | RADRPT ---
Vent Rate: 81 bpm RR Interval: 0 msec IL Interval: 128 msec QRS Duration: 76 msec QT Interval: 364 msec QTC Interval: 422 msec P-R-T [place]: 35 - 12 - 38 degrees Normal sinus rhythm Anterolateral infarct , age undetermined Abnormal ECG Electronically Signed By: Duy Quarles [id number]
== END 2016-12-03 18:30 | disposition home health service (06) | DRG 736 ==
LOC: E/R 18:09 → PP2 11-09 00:55 → ICU 11-17 13:23 → MS1 11-22 14:11
PROVIDERS: ADMIT Family Medicine; ATTEND Family Medicine
PROC: 0W9G3ZX Drainage of Peritoneal Cavity, Percutaneous Approach, Diagnostic (ICD-10-PCS; 2016-11-10)
PROC: 0UTC0ZZ Resection of Cervix, Open Approach (ICD-10-PCS; 2016-11-17)
PROC: 0UT70ZZ Resection of Bilateral Fallopian Tubes, Open Approach (ICD-10-PCS; 2016-11-17)
PROC: 0UT20ZZ Resection of Bilateral Ovaries, Open Approach (ICD-10-PCS; 2016-11-17)
PROC: 07BD0ZX Excision of Aortic Lymphatic, Open Approach, Diagnostic (ICD-10-PCS; 2016-11-17)
PROC: 07BC0ZX Excision of Pelvis Lymphatic, Open Approach, Diagnostic (ICD-10-PCS; 2016-11-17)
PROC: 0DBS0ZZ (ICD-10-PCS; 2016-11-17)
PROC: [UNRECOGNIZED PROCEDURE] (2016-11-17)
PROC: [UNRECOGNIZED PROCEDURE] (2016-11-17)
PROC: [UNRECOGNIZED PROCEDURE] (2016-11-17)
PROC: 0D5W0ZZ Destruction of Peritoneum, Open Approach (ICD-10-PCS; 2016-11-17)
PROC: 07TP0ZZ Resection of Spleen, Open Approach (ICD-10-PCS; 2016-11-17)
PROC: 0DBN0ZZ Excision of Sigmoid Colon, Open Approach (ICD-10-PCS; 2016-11-17)
PROC: 0D5 Gastrointestinal System, Destruction (ICD-10-PCS; 2016-11-17)
PROC: 0TN70ZZ Release Left Ureter, Open Approach (ICD-10-PCS; 2016-11-17)
PROC: 0TN60ZZ Release Right Ureter, Open Approach (ICD-10-PCS; 2016-11-17)
PROC: [UNRECOGNIZED PROCEDURE] (2016-11-17)
PROC: 30233N1 Transfusion of Nonautologous Red Blood Cells into Peripheral Vein, Percutaneous Approach (ICD-10-PCS; 2016-11-17)
PROC: 0UT90ZZ Resection of Uterus, Open Approach (ICD-10-PCS; principal; 2016-11-17 08:00)
PROC: 30233K1 Transfusion of Nonautologous Frozen Plasma into Peripheral Vein, Percutaneous Approach (ICD-10-PCS; 2016-11-18)
PROC: 0JH60XZ Insertion of Tunneled Vascular Access Device into Chest Subcutaneous Tissue and Fascia, Open Approach (ICD-10-PCS; 2016-11-29)
PROC: 3E04305 Introduction of Other Antineoplastic into Central Vein, Percutaneous Approach (ICD-10-PCS; 2016-11-29)
PROC: 02HV33Z Insertion of Infusion Device into Superior Vena Cava, Percutaneous Approach (ICD-10-PCS; 2016-11-29)
DX: C56.1 Malignant neoplasm of right ovary (principal); K85.90 Acute pancreatitis without necrosis or infection, unspecified; R65.21 Severe sepsis with septic shock; A41.9 Sepsis, unspecified organism; R18.0 Malignant ascites; C78.6 Secondary malignant neoplasm of retroperitoneum and peritoneum; E87.1 Hypo-osmolality and hyponatremia; C78.89 Secondary malignant neoplasm of other digestive organs; C79.82 Secondary malignant neoplasm of genital organs; C79.62 Secondary malignant neoplasm of left ovary; C79.89 Secondary malignant neoplasm of other specified sites; E86.0 Dehydration; I10 Essential (primary) hypertension; D50.9 Iron deficiency anemia, unspecified; N28.9 Disorder of kidney and ureter, unspecified; K74.60 Unspecified cirrhosis of liver; K66.0 Peritoneal adhesions (postprocedural) (postinfection); T50.2X5A Adverse effect of carbonic-anhydrase inhibitors, benzothiadiazides and other diuretics, initial encounter; Y92.238 Other place in hospital as the place of occurrence of the external cause
CPT/HCPCS: 36415; 36430; 36561; 36600; 71010; 74177; 76942; 80048; 80053; 80069; 81001; 81003; 82150; 82271; 82728; 82803; 82962; 83036; 83540; 83605; 83690; 83735; 84100; 84145; 84484; 85025; 85610; 85730; 86304; 86644; 86850; 86900; 86901; 86920; 87040; 87070; 87081; 87086; 88305; 88307; 88331; 89050; 93005; 93970; 94002; 94003; 94770; 96361; 96374; 97116; 97162; 97530; J1940; J9045; J9267; C1788; C9113; J0610; J0690; J0743; J1100; J1170; J1200; J1642; J1644; J1815; J1885; J1956; J2060; J2250; J2270; J2274; J2354; J2370; J2405; J2543; J2710; J2765; J3010; J3370; J3475; J3480; J7030; J7040; J7042; J7050; J7060; J7120; P9016; P9045; P9047; P9059; Q9967

== ENCOUNTER 2017-01-01 23:29 | Inpatient (IN) | payer OTHER ==
[~2017-01-01] VITALS: Ht 152.4 cm; Wt 60.0 kg
[~2017-01-01 23:29] MED LIST changes: +ALBU18HF INH; -ATEN50TA PO
--- NOTE | 2017-01-01 23:41 | ERA ---
ER Documentation Chief Complaint Date/Time DATE: 01/01/17 TIME: 23:41 Chief Complaint Fainted HPI The patient is a 56-year-old female, presenting to the ER because she fainted about 30 minutes prior to arrival. She did not know what happened to her. She was recently diagnosed with metastatic ovarian cancer, had her first outpatient chemotherapy [address] Bear. She denies headache, facial pain, neck pain, chest pain, dyspnea, palpitation, complains of chronic abdominal pain, denied dysuria, diarrhea, constipation. She does not smoke or drink Past medical history: Cirrhosis, metastatic ovarian cancer, history of malignant ascites, hypertension, anemia Past surgical history: Cholecystectomy, hysterectomy, splenectomy, Port-A-Cath ROS All systems reviewed and are negative except as per history of present illness. Medications Home Meds Active Scripts Albuterol Sulfate* (Ventolin HFA*) 18 Gm Hfa.aer.ad, 2 PUFF INH Q6H RESP THERAPY , #1 2 Refills Prov:QUINCY KU S. 12/03/16 Spironolactone* (Aldactone*) 100 Mg Tablet, 100 MG PO DAILY, #30 TAB 4 Refills Prov:RAPATRICIA WISEMANEEP S. 12/03/16 Reported Medications Phenylephrine HCl/[place] Butter* (Preparation H* Suppository) 1 Each Supp.rect, 1 EACH HI BID, SUPP.RECT 01/02/17 Discontinued Scripts Furosemide* (Furosemide*) 40 Mg Tablet, 40 MG PO DAILY for 30 Days, TAB 2 Refills Prov:RAPATRICIA WISEMANEEP S. 12/03/16 Allergies Allergies: Coded Allergies: No Known Allergy (Unverified , 01/02/17) PMhx/Soc History of Surgery: Yes (Cholecystectomy and Tubal Ligation) Anesthesia Reaction: No Hx Neurological Disorder: No Hx Respiratory Disorders: No Hx Cardiac Disorders: No Hx Psychiatric Problems: No (Dry skin) Hx Miscellaneous Medical Probl: Yes (CIRRHOSIS) Hx Alcohol Use: No Hx Substance Use: No Hx Tobacco Use: No Physical Exam Vitals Vital Signs Date Time Temp Pulse Resp B/P Pulse Ox O2 Delivery O2 Flow Rate FiO2 01/02/17 02:05 107 18 117/74 99 Room Air 01/01/17 23:41 99.1 122 20 127/87 98 Physical Exam Const: No acute distress. Head: Atraumatic. Eyes: Normal Conjunctiva. ENT: Normal External Ears, Nose and Mouth. Neck: Full range of motion. No meningismus. Resp: Clear to auscultation bilaterally. Cardio: Regular but tachycardic Abd: Soft, non distended, normal bowel sounds, ascites, diffuse abdominal discomfort, no rigidity, rebound, CVA tenderness Skin: No petechiae or rashes. Back: No midline or flank tenderness. Ext: No cyanosis, or edema. Neur: Awake and alert. No focal deficit Psych: Normal Mood and Affect. Result Diagram: 01/01/17 0130 01/01/17 013 Results 24 hrs Laboratory Tests Test 01/01/17 01:30 01/02/17 02:13 01/02/17 02:18 01/02/17 02:30 White Blood Count 17.410^3/ul Red Blood Count 4.3610^6/ul Hemoglobin 13.2g/dl Hematocrit 39.2% Mean Corpuscular Volume 89.9fl Mean Corpuscular Hemoglobin 30.3pg Mean Corpuscular Hemoglobin Concent 33.7g/dl Red Cell Distribution Width 17.8% Platelet Count 60398^3/UL Mean Platelet Volume 8.8fl Neutrophils % 83.8% Lymphocytes % 11.3% Monocytes % 3.0% Eosinophils % 0.1% Basophils % 0.5% Nucleated Red Blood Cells % 0.0/100WBC Neutrophils # 14.510^3/ul Lymphocytes # 2.010^3/ul Monocytes # 0.510^3/ul Eosinophils # 0.010^3/ul Basophils # 0.110^3/ul Nucleated Red Blood Cells # 0.010^3/ul Prothrombin Time 12.9Sec Prothrombin Time Ratio 1.0 INR International Normalized Ratio 0.97 Activated Partial Thromboplast Time 24.4Sec Sodium Level 130mmol/L Potassium Level 4.6mmol/L Chloride Level 98mmol/L Carbon Dioxide Level 23mmol/L Anion Gap 14 Blood Urea Nitrogen 17mg/dl Creatinine 0.64mg/dl Glucose Level 126mg/dl Lactic Acid Level 2.1mmol/L 0.8mmol/L Calcium Level 9.3mg/dl Total Bilirubin 0.3mg/dl Direct Bilirubin 0.00mg/dl Indirect Bilirubin 0.3mg/dl Aspartate Amino Transf (AST/SGOT) 23IU/L Alanine Aminotransferase (ALT/SGPT) 27IU/L Alkaline Phosphatase 91IU/L Troponin I < 0.012ng/ml Total Protein 8.7g/dl Albumin 3.9g/dl Globulin 4.80g/dl Albumin/Globulin Ratio 0.81 Urine Color LT. YELLOW Urine Clarity SL HAZY Urine pH 7.0 Urine Specific [place] 1.010 Urine Ketones NEGATIVE Urine Nitrite NEGATIVE Urine Bilirubin NEGATIVE Urine Urobilinogen 1.0 E.U./dL Urine Leukocyte Esterase TRACE Urine Microscopic RBC 5-10/HPF Urine Microscopic WBC 5-10/HPF Urine Squamous Epithelial Cells MODERATE Urine Bacteria OCCASIONAL Urine Hemoglobin 2+ Urine Glucose NEGATIVE% Urine Total Protein 1+ Bedside Urine pH (LAB) 7.5 Bedside Urine Protein (LAB) 2+ Bedside Urine Glucose (UA) Negative Bedside Urine Ketones (LAB) Negative Bedside Urine Blood 1+ Bedside Urine Nitrite (LAB) Negative Bedside Urine Leukocyte Esterase (L 1+ Current Medications Medications (Trade) Dose Ordered Sig/Daryn Route PRN Reason Start Time Stop Time Status Last Admin Dose Admin Sodium Chloride (NS) 1,870 ml @ 1,870 mls/hr BOLUS X1 ONCE IV 01/02/17 00:00 01/02/17 00:59 DC 01/02/17 01:30 Ondansetron HCl 4 mg 4 mg ONCE STAT IV 01/02/17 01:34 01/02/17 01:35 DC 01/02/17 01:38 Sodium Chloride (NS) 100 ml @ ud STK-MED ONCE .ROUTE 01/02/17 02:37 01/02/17 02:38 DC 01/02/17 03:12 Iohexol 150 ml 150 ml STK-MED ONCE .ROUTE 01/02/17 02:37 01/02/17 02:38 DC 01/02/17 03:12 Piperacillin Sod/ Tazobactam Sod (Zosyn 3.375gm/ 100 ml (Pmx)) 100 ml @ 200 mls/hr ONCE ONCE IVPB 01/02/17 03:00 01/02/17 03:29 01/02/17 02:48 Acetaminophen/ Hydrocodone Bitart (Marathon (10/325)) 1 tab ONCE ONCE PO 01/02/17 03:00 01/02/17 03:01 DC 01/02/17 02:48 Procedures/MDM [place] [id number] Radiology Main Line: [phone] DIAGNOSTIC IMAGING REPORT Patient: BLANCO SIMMONS : 1960 Age: 56 Sex: F MR #: [id number] DOS: 01/01/17 2355 Ordering MD: CANDIDO REEVES MD Location: E/R Room/Bed: PROCEDURE: CT BRAIN WITHOUT CONTRAST CLINICAL INDICATION: 56-year-old female with syncope. TECHNIQUE: The study was performed utilizing a [employer] VCT 64-slice CT scanner. Direct axial sections were obtained from the foramen magnum to the vertex without the use of intravenous contrast material. Sagittal and coronal reformations were obtained. One or more the following dose reduction techniques were utilized: automated exposure control, adjustment of the mA and/or kV according to patient's size or use of iterative reconstruction technique. The images were viewed on a PACS workstation. CTD/vol = 45.0 mGy; Total Exam DLP = 720.2 mGy-cm. COMPARISON: None. FINDINGS: The ventricles have a normal size, shape and position. There is no evidence for mass effect or midline shift. There are no intracranial areas of abnormal attenuation. There is no evidence for acute intra or extra-axial blood. The bony calvarium is intact. The visualized paranasal sinuses and mastoid air cells are without abnormal soft tissue. IMPRESSION: Unremarkable noncontrast CT scan of the brain. .Nestor Simmons MD, MD Date Time Electronically viewed and signed by .Nestor Simmons MD, on 01/02/2017 03:17 .M/ CC: CANDIDO REEVES MD [place] [id number] Radiology Main Line: [phone] DIAGNOSTIC IMAGING REPORT Patient: BLANCO SIMMONS : 1960 Age: 56 Sex: F MR #: [id number] DOS: 01/01/17 2355 Ordering MD: CANDIDO REEVES MD Location: E/R Room/Bed: PROCEDURE: XR Chest. CLINICAL INDICATION: Possible sepsis. TECHNIQUE: Single frontal view of the chest. COMPARISON: 11/17/2016. FINDINGS: No central venous port in place, new over interval previously seen right central venous line and endotracheal intubation are removed. Mild cardiomegaly. Vascular crowding and right lung base. The lungs are otherwise clear. No signs of pleural fluid or pneumothorax are seen. The osseous structures and soft tissues are unremarkable. IMPRESSION: No evidence for active cardiopulmonary disease. RPTAT: [facility] Physician Alexandra Date Time Electronically viewed and signed by Kofi Lewis Physician on 01/02/2017 01:14 RS/ CC: CANDIDO REEVES MD [place] [address] Radiology Main Line: [phone] DIAGNOSTIC IMAGING REPORT Patient: BLANCO SIMMONS : 1960 Age: 56 Sex: F MR #: [id number] DOS: 01/01/17 2355 Ordering MD: CANDIDO REEVES MD Location: E/R Room/Bed: PROCEDURE: CTA Chest CLINICAL INDICATION: Shortness of breath. Nonsmoker. TECHNIQUE: Thin section spiral CT images were obtained through the vasculature of the chest during administration of 100 cc of Omnipaque-300 contrast material. Multiplanar reconstructions and 3-D maximum intensity projection reconstructed images were performed. The images were reviewed on a PACS workstation. The total exam CTDI equals 15.68 mGy, and the total exam DLP equals 550.93 mGy-cm. One or more of the following dose reduction techniques were used: automated exposure control, adjustment of the mA and/or kV according to patient size, or use of iterative reconstruction technique. COMPARISON: Chest x-ray from the same day FINDINGS: Slight dependent atelectasis of the lungs is seen. 1 mm subpleural nodule anteriorly at the right lung apex on image 29. Scattered nonspecific ground- glass opacities of the lungs. Left chest port is seen in place. Mild cardiomegaly. No focal infiltrate or pleural effusion is seen. No pericardial effusion is seen. No hilar or mediastinal adenopathy is seen. There is no definite evidence for pulmonary embolus or aortic dissection. Ascites and peritoneal and omental nodularity consistent with metastatic disease is again seen. Loculated fluid or cystic lesion adjacent to the pancreatic tail is now seen, measuring 4 cm in diameter. Gastric wall thickening is again seen. Tiny nodes or nodules of the upper abdomen. Atherosclerotic change of the aorta. There is mild degenerative change of the spine. IMPRESSION: No evidence for pulmonary embolus or aortic dissection. Probable peritoneal metastatic disease of the abdomen again seen as well as wall thickening of the stomach. 1 mm right upper lobe lung nodule. RPTAT: [facility] Physician Sara Date Time Electronically viewed and signed by Reina Clinton Physician on 01/02/2017 03 :26 LE/ CC: CANDIDO REEVES MD EKG: Read by emergency physician Rate/Rhythm: Sinus tachycardia 114 beats/min QRS, ST, T-waves: No ST elevation, no T inversion Impression: Abnormal EKG MEDICAL MAKING DECISION: The patient is a 56-year-old female, presenting with acute syncope, acute severe sepsis due to acute cystitis. She was treated with normal saline 30 mL/kg IV, Zosyn IV for acute severe sepsis, Zofran 4 mg IV for nausea and Marathon 10 mg p.o. for pain with good response. The differential diagnoses for acute syncope considered include but are not limited to bradyarrhythmia, tachyarrhythmias, aortic outflow obstruction, neurogenic including subarachnoid hemorrhage, orthostatic hypotension and all of its causes, hypoglycemia, dysautonomia, medications. The differential diagnoses for acute abdominal pain considered include but are not limited to cholelithiasis, cholecystitis, cystitis, pancreatitis, hepatitis , gastritis, peptic ulcer disease, gastric ulcer, appendicitis, diverticulitis, cholangitis, choledocholithiasis, partial small bowel obstruction. Admit MDM: Patient's infectious symptoms have not stabilized and the patient is at risk of rapid decompensation. The patient will be admitted for careful hydration, antibiotic therapy, and infectious source control. Severe Sepsis criteria: Infectious source: UTI End organ damage indicated by: Lactate > 2.0 mmol/L Hypotension (SBP < 90 or >40 mmHG drop or MAP < 65) Acute Resp Failure (sat < 92% w/o oxygen) Finish Sander > 2.0 Sepsis Management: Time of recognition of severe sepsis/septic shock:1:40 AM Within 3 hours of recognition: Blood cultures x 2 before broad-spectrum antibiotics: Yes 30 ml/kg NS bolus completed Initial lactate 2.1 Repeat lactate pending Critical Care: Critical care time 35 minutes Emergent fluid management while maintaining close respiratory support. Provision of immediate and broad-spectrum antibiotic therapy. Simultaneous assessment for possible sources in order to direct targeted therapy. Consideration for invasive and chemical support to prevent cardiopulmonary collapse. Departure Diagnosis: Primary Impression: Syncope Additional Impressions: Severe sepsis UTI (urinary tract infection) Condition: Stable Comments I discussed the findings with the patient. I discussed the patient with the on- call hospitalist Dr. Stapleton who was made aware of the lab, the treatment, the patient condition. The patient is admitted to telemetry at 3:30 AM CANDIDO REEVES MD January 01, 2017 23:41
[2017-01-02] VITALS (10 sets, daily range): BP systolic 96–116; BP diastolic 59–77; PULSE 91–110; RESP 16–20; Ht 152.4 cm; Wt 60.0 kg
[2017-01-02] MEDS ORDERED: SOD CHLORIDE 0.9% IV ONE
[2017-01-02] MEDS ORDERED: PHEN1SUP80 PR (00:51)
--- NOTE | 2017-01-02 01:14 | RADRPT ---
PROCEDURE: XR Chest. CLINICAL INDICATION: Possible sepsis. TECHNIQUE: Single frontal view of the chest. COMPARISON: 11/17/2016. FINDINGS: No central venous port in place, new over interval previously seen right central venous line and end otracheal intubation are removed. Mild cardiomegaly. Vascular crowding and right lung base. The l ungs are otherwise clear. No signs of pleural fluid or pneumothorax are seen. The osseous structures and soft tissues are unremarkable. IMPRESSION: No evidence for active cardiopulmonary disease. RPTAT: [facility] Physician Alexandra Date Time Electronically viewed and signed by Physician Alexandra on 01/02/2017 01:14 RS/
[2017-01-02] MEDS ORDERED: ONDANSETRON 4 MG INJ IV STA (01:34)
[2017-01-02 01:45] LABS: ADD SCAN DIFF NO
[2017-01-02 01:48] LABS: BASOPHIL # 0.1 10^3/ul (0.0-0.1); BASOPHILS % 0.5 % (0.0-2.0); EOSINOPHILS % 0.1 % (0.0-7.0); HEMATOCRIT 39.2 % (37.0-47.0); HEMOGLOBIN 13.2 g/dl (12.0-16.0); LYMPHOCYTES % 11.3 % (15.0-51.0); MEAN CORPUSCULAR HEMOGLOBIN 30.3 pg (29.0-33.0); MEAN CORPUSCULAR HGB CONC 33.7 g/dl (32.0-37.0); MEAN CORPUSCULAR VOLUME 89.9 fl (82.0-101.0); MEAN PLATELET VOLUME 8.8 fl (7.4-10.4); MONOCYTE # 0.5 10^3/ul (0.3-0.9); NEUTROPHIL # 14.5 10^3/ul (1.6-7.5); NEUTROPHILS % 83.8 % (39.0-77.0); PLATELET COUNT 530 10^3/UL (140-415); RED BLOOD COUNT 4.36 10^6/ul (4.20-5.40); RED CELL DISTRIBUTION WIDTH 17.8 % (11.5-14.5); WHITE BLOOD COUNT 17.4 10^3/ul (4.8-10.8)
[2017-01-02 02:02] LABS: INR 0.97; PROTIME 12.9 Sec (12.2-14.2)
[2017-01-02 02:03] LABS: PARTIAL THROMBOPLASTIN TIME 24.4 Sec (25.0-35.0)
[2017-01-02 02:05] LABS: ALANINE AMINOTRANSFERASE 27 IU/L (13-69); ALBUMIN 3.9 g/dl (3.3-4.9); ALBUMIN/GLOBULIN RATIO 0.81; ALKALINE PHOSPHATASE 91 IU/L (42-121); ANION GAP 14 (8-16); ASPARTATE AMINO TRANSFERASE 23 IU/L (15-46); BILIRUBIN,INDIRECT 0.3 mg/dl (0-1.1); BILIRUBIN,TOTAL 0.3 mg/dl (0.2-1.3); BLOOD UREA NITROGEN 17 mg/dl (7-20); CALCIUM 9.3 mg/dl (8.4-10.2); CARBON DIOXIDE 23 mmol/L (21-31); CHLORIDE 98 mmol/L (97-110); CREATININE 0.64 mg/dl (0.44-1.00); GLUCOSE 126 mg/dl (70-220); POTASSIUM 4.6 mmol/L (3.5-5.1); SODIUM 130 mmol/L (135-144); TOTAL PROTEIN 8.7 g/dl (6.1-8.1)
[2017-01-02 02:16] LABS: URINE BLOOD (Dip) POC 1+ (NEGATIVE)
[2017-01-02 02:19] LABS: TROPONIN-I < 0.012 ng/ml (0.00-0.12)
[2017-01-02] MEDS ORDERED: SOD CHLORIDE 0.9% 100 ML ONE (02:37)
[2017-01-02] MEDS ORDERED: IOHEXOL 300MG/ML 150 ML BTL ONE (02:37)
[2017-01-02 02:41] LABS: ADD UMIC YES; URINE BILIRUBIN (Dip) NEGATIVE (NEGATIVE); URINE BLOOD (Dip) 2+ (NEGATIVE); URINE COLOR LT. YELLOW (YELLOW); URINE GLUCOSE (Dip) NEGATIVE (NEGATIVE); URINE KETONES (Dip) NEGATIVE (NEGATIVE); URINE LEUKOCYTE ESTERASE (Dip) TRACE (NEGATIVE); URINE NITRITE (Dip) NEGATIVE (NEGATIVE); URINE TOTAL PROTEIN (Dip) 1+ (NEGATIVE); URINE UROBILINOGEN (Dip) 1.0 E.U./dL (0.1-1.0)
[2017-01-02 02:59] LABS: SQUAMOUS EPITHELIAL CELL,UR MODERATE
[2017-01-02 03:00] LABS: BACTERIA,URINE OCCASIONAL
[2017-01-02] MEDS ORDERED: HYDROCODONE/APAP (10/325) TAB PO ONE (03:00)
[2017-01-02] MEDS ORDERED: PIPER-TAZO 3.375 GM IV (PMX) 100 ML IVPB ONE (03:00)
--- NOTE | 2017-01-02 03:17 | RADRPT ---
PROCEDURE: CT BRAIN WITHOUT CONTRAST CLINICAL INDICATION: 56-year-old female with syncope. TECHNIQUE: The study was performed utilizing a [employer] VCT 64-slice CT scanner. Direct axia l sections were obtained from the foramen magnum to the vertex without the use of intravenous contra st material. Sagittal and coronal reformations were obtained. One or more the following dose reduct ion techniques were utilized: automated exposure control, adjustment of the mA and/or kV according t o patient's size or use of iterative reconstruction technique. The images were viewed on a PACS [place]. CTD/vol = 45.0 mGy; Total Exam DLP = 720.2 mGy-cm. COMPARISON: None. FINDINGS: The ventricles have a normal size, shape and position. There is no evidence for mass effect or midl ine shift. There are no intracranial areas of abnormal attenuation. There is no evidence for acute intra or extra-axial blood. The bony calvarium is intact. The visualized paranasal sinuses and mast oid air cells are without abnormal soft tissue. IMPRESSION: Unremarkable noncontrast CT scan of the brain. .Nestor Simmons MD, MD Date Time Electronically viewed and signed by .Nestor Simmons MD, on 01/02/2017 03:17 .M/
--- NOTE | 2017-01-02 03:27 | RADRPT ---
PROCEDURE: CTA Chest CLINICAL INDICATION: Shortness of breath. Nonsmoker. TECHNIQUE: Thin section spiral CT images were obtained through the vasculature of the chest during administration of 100 cc of Omnipaque-300 contrast material. Multiplanar reconstructions and 3-D m aximum intensity projection reconstructed images were performed. The images were reviewed on a PACS workstation. The total exam CTDI equals 15.68 mGy, and the total exam DLP equals 550.93 mGy-cm. One or more of the following dose reduction techniques were used: automated exposure control, adjust ment of the mA and/or kV according to patient size, or use of iterative reconstruction technique. COMPARISON: Chest x-ray from the same day FINDINGS: Slight dependent atelectasis of the lungs is seen. 1 mm subpleural nodule anteriorly at the right marco ng apex on image 29. Scattered nonspecific ground-glass opacities of the lungs. Left chest port is seen in place. Mild cardiomegaly. No focal infiltrate or pleural effusion is seen. No pericardial effusion is seen. No hilar or mediastinal adenopathy is seen. There is no definite evidence for pu lmonary embolus or aortic dissection. Ascites and peritoneal and omental nodularity consistent wit h metastatic disease is again seen. Loculated fluid or cystic lesion adjacent to the pancreatic abelardo l is now seen, measuring 4 cm in diameter. Gastric wall thickening is again seen. Tiny nodes or no dules of the upper abdomen. Atherosclerotic change of the aorta. There is mild degenerative change of the spine. IMPRESSION: No evidence for pulmonary embolus or aortic dissection. Probable peritoneal metastatic disease of t he abdomen again seen as well as wall thickening of the stomach. 1 mm right upper lobe lung nodule. RPTAT: [facility] Physician Sara Date Time Electronically viewed and signed by Physician Sara on 01/02/2017 03:26 ANTONIO/
--- NOTE | 2017-01-02 05:28 | HP ---
Date/Time of Note Date/Time of Note DATE: 01/02/17 TIME: 05:22 Assessment/Plan VTE Prophylaxis VTE Prophylaxis Intervention: LMWH Assessment/Plan Chief Complaint/Hosp Course This is a 56-year-old female being admitted to telemetry floor for: #1 severe sepsis: Patient has a positive UA along with an initial lactate greater than 2 and an elevated white blood cell count of 17. She received 1 dose of Zosyn in the ED. At the current time I will initiate ceftriaxone 1 g every 24 hours. Await urine culture. Will continue IV fluid hydration currently at 50 cc an hour. As she has been undergoing chemotherapy and there is no baseline echocardiogram I would like to order an echo before I increase her fluid rate. CTA of the chest was negative for PE, CT of the head was negative. Chest x-ray negative. #2 dehydration: Patient's has dry mucous membranes and does also have a low blood pressure. Currently being treated with antibiotics and also will put her on IV fluids. #3 syncope: Possibly secondary to #1 and #2. Currently on antibiotics and IV fluids. Will also order an echocardiogram and carotid ultrasound for completeness sake. Though this likely seems to be infectious in nature at this time would like to evaluate for cardiac causes secondary to her clinical history as well as history of chemotherapy. #4 UTI: Positive leukoesterase, received Zosyn. Currently on ceftriaxone. Will await urine culture. Continue to monitor white blood cell count. #5 leukocytosis: Likely secondary to urinary tract infection. On antibiotics. Will consult hematology for further treatment strategy. #6 metastatic ovarian cancer: Patient is status post surgery and recently received chemotherapy. Will consult hematology for further recommendations. #7 cirrhosis: Patient currently right now does not appear fluid overloaded. We will continue to follow. #8 anemia: Patient is hemoglobin is 13: We will continue to follow. #9 hypertension: Stable continue to monitor. #10 DVT GI prophylaxis: Lovenox, Protonix. Further treatment strategy will be implemented as per the clinical course. Problems: HPI/ROS Admit Date/Time Admit Date/Time January 02, 2017 at 03:35 Hx of Present Illness Chief complaint: Fainting The patient is a 56-year-old female, presenting to the ER because she fainted about 30 minutes prior to arrival. She did not know what happened to her. Her niece is with her at the bedside and she states that she heard a popping noise from the other room and when she went and saw her and she was on the floor. She regained consciousness within a few seconds. The niece denied seeing any shaking, tremors, or lipsmacking behavior, or jerking. She was recently diagnosed with metastatic ovarian cancer, had her first outpatient chemotherapy [address] Gonzalez. She denies headache, facial pain, neck pain, chest pain, dyspnea, palpitation, complains of chronic abdominal pain, diarrhea, constipation. She does not smoke or drink. Of note patient states that she has noticed some dysuria as well as urinary frequency. Allergies: NKDA Medications: See Oct Const: As per HPI Eyes : No pain discharge or redness or change in visual acuity ENT: No pain, sore throat, congestion, congestion, dysphagia or discharge Respiratory: No shortness of breath, cough, sputum, wheezing, or pleuritic pain Cardiovascular: No chest pain, palpitation, PND, or edema GI : no change in appetite, abdominal pain, nausea, vomiting, diarrhea, constipation, or change in the color his stool Genitourinary: As per HPI Musculoskeletal: No joint pain, back pain, neck pain, restricted range of motion in neck or joints Skin: No rash, bruising or hives Neuro: As per HPI Endocrine: No polyuria, polydipsia, temperature intolerance Psych: No hallucination, depression, anxiety or suicidal ideation PMH/Family/Social Past Medical History Cirrhosis, metastatic ovarian cancer - FIGO stage IIIc, history of malignant ascites, hypertension, anemia Past Surgical History Cholecystectomy, splenectomy, Port-A-Cath, Extended hysterectomy with bilateral salpingo-oophorectomy, Bilateral ureteral dissection with repositioning, Splenectomy with distal pancreatectomy, Omentectomy with cytoreduction, Pelvic and aortic lymph node dissection and Diaphragm stripping Social History Alcohol Use: rarely Smoking Status: Never smoker Drug Use: none Exam/Review of Systems Vital Signs Vitals Vital Signs Date Time Temp Pulse Resp B/P Pulse Ox O2 Delivery O2 Flow Rate FiO2 01/02/17 04:35 98.3 105 19 96/59 96 01/02/17 04:10 Room Air Exam Exam General: This is a 56-year-old female who appears frail and lethargic. HEENT: Atraumatic, normocephalic. The pupils are equal, round and reactive. Dry mucous membranes Neck: Supple with full range of motion. No rigidity or meningismus Chest: Nontender Lungs: Clear to auscultation bilaterally no crackles rales or wheezing Heart: Normal S1-S2, Regular rhythm and rate. No murmur, S3, or S4 Abdomen: Soft , nontender, nondistended , bowel sounds are present. Surgical scar present. Mild suprapubic tenderness to palpation. Extremities: Normal to inspection, no edema no cyanosis Neurologic: Normal mental status, speech normal, cranial nerves II through XII are intact, motor and sensory are intact, no focal weakness Additional Comments ROCEDURE: XR Chest. CLINICAL INDICATION: Possible sepsis. TECHNIQUE: Single frontal view of the chest. COMPARISON: 11/17/2016. FINDINGS: No central venous port in place, new over interval previously seen right central venous line and endotracheal intubation are removed. Mild cardiomegaly. Vascular crowding and right lung base. The lungs are otherwise clear. No signs of pleural fluid or pneumothorax are seen. The osseous structures and soft tissues are unremarkable. IMPRESSION: No evidence for active cardiopulmonary disease. RPTAT: [facility] Physician Alexandra Date Time Electronically viewed and signed by Physician Alexandra on 01/02/2017 01:14 PROCEDURE: CT BRAIN WITHOUT CONTRAST CLINICAL INDICATION: 56-year-old female with syncope. TECHNIQUE: The study was performed utilizing a [employer] VCT 64-slice CT scanner. Direct axial sections were obtained from the foramen magnum to the vertex without the use of intravenous contrast material. Sagittal and coronal reformations were obtained. One or more the following dose reduction techniques were utilized: automated exposure control, adjustment of the mA and/or kV according to patient's size or use of iterative reconstruction technique. The images were viewed on a PACS workstation. CTD/vol = 45.0 mGy; Total Exam DLP = 720.2 mGy-cm. COMPARISON: None. FINDINGS: The ventricles have a normal size, shape and position. There is no evidence for mass effect or midline shift. There are no intracranial areas of abnormal attenuation. There is no evidence for acute intra or extra-axial blood. The bony calvarium is intact. The visualized paranasal sinuses and mastoid air cells are without abnormal soft tissue. IMPRESSION: Unremarkable noncontrast CT scan of the brain. .Nestor Simmons MD, Date Time Electronically viewed and signed by .Nestor Simmons MD, MD on 01/02/2017 03:17 PROCEDURE: CTA Chest CLINICAL INDICATION: Shortness of breath. Nonsmoker. TECHNIQUE: Thin section spiral CT images were obtained through the vasculature of the chest during administration of 100 cc of Omnipaque-300 contrast material. Multiplanar reconstructions and 3-D maximum intensity projection reconstructed images were performed. The images were reviewed on a PACS workstation. The total exam CTDI equals 15.68 mGy, and the total exam DLP equals 550.93 mGy-cm. One or more of the following dose reduction techniques were used: automated exposure control, adjustment of the mA and/or kV according to patient size, or use of iterative reconstruction technique. COMPARISON: Chest x-ray from the same day FINDINGS: Slight dependent atelectasis of the lungs is seen. 1 mm subpleural nodule anteriorly at the right lung apex on image 29. Scattered nonspecific ground- glass opacities of the lungs. Left chest port is seen in place. Mild cardiomegaly. No focal infiltrate or pleural effusion is seen. No pericardial effusion is seen. No hilar or mediastinal adenopathy is seen. There is no definite evidence for pulmonary embolus or aortic dissection. Ascites and peritoneal and omental nodularity consistent with metastatic disease is again seen. Loculated fluid or cystic lesion adjacent to the pancreatic tail is now seen, measuring 4 cm in diameter. Gastric wall thickening is again seen. Tiny nodes or nodules of the upper abdomen. Atherosclerotic change of the aorta. There is mild degenerative change of the spine. IMPRESSION: No evidence for pulmonary embolus or aortic dissection. Probable peritoneal metastatic disease of the abdomen again seen as well as wall thickening of the stomach. 1 mm right upper lobe lung nodule. RPTAT: [facility] Reina Mary Beth, Physician Date Time Electronically viewed and signed by Reina Clinton, Physician on 01/02/2017 03 :26 Labs Result Diagram: 01/01/17 0130 01/01/17 0130 ANGEL FORTE January 02, 2017 05:28
[2017-01-02] MEDS: SOD CHLORIDE 0.9% 1,000 ML IV SCH (06:35)
[2017-01-02] MEDS ORDERED: NACL 0.9% 3 ML SYG IV SCH (07:00)
[2017-01-02] MEDS ORDERED: DOCUSATE SODIUM 100 MG CAP PO PRN (07:00)
[2017-01-02] MEDS ORDERED: LORAZEPAM 2 MG INJ IV PRN (07:00)
[2017-01-02] MEDS ORDERED: PIPER-TAZO 3.375 GM IV (PMX) 100 ML IVPB SCH (07:00)
[2017-01-02] MEDS: PANTOPRAZOLE 40 MG INJ IV SCH (07:00)
[2017-01-02] MEDS ORDERED: ACETAMINOPHEN 325 MG TAB PO PRN (07:00)
[2017-01-02] MEDS: ALBUTEROL 18 GM INHALER INH SCH ×3 (08:00→20:00)
[2017-01-02 08:22] LABS: ADD SCAN DIFF NO
[2017-01-02 08:23] LABS: BASOPHIL # 0.1 10^3/ul (0.0-0.1); BASOPHILS % 0.6 % (0.0-2.0); HEMATOCRIT 34.9 % (37.0-47.0); HEMOGLOBIN 11.4 g/dl (12.0-16.0); LYMPHOCYTES # 2.5 10^3/ul (0.8-2.9); LYMPHOCYTES % 19.1 % (15.0-51.0); MEAN CORPUSCULAR HEMOGLOBIN 29.6 pg (29.0-33.0); MEAN CORPUSCULAR HGB CONC 32.7 g/dl (32.0-37.0); MEAN CORPUSCULAR VOLUME 90.6 fl (82.0-101.0); MEAN PLATELET VOLUME 9.4 fl (7.4-10.4); MONOCYTE # 0.7 10^3/ul (0.3-0.9); MONOCYTES % 5.4 % (0.0-11.0); NEUTROPHIL # 9.8 10^3/ul (1.6-7.5); NEUTROPHILS % 73.7 % (39.0-77.0); PLATELET COUNT 404 10^3/UL (140-415); RED BLOOD COUNT 3.85 10^6/ul (4.20-5.40); RED CELL DISTRIBUTION WIDTH 18.1 % (11.5-14.5); WHITE BLOOD COUNT 13.2 10^3/ul (4.8-10.8)
[2017-01-02 08:37] LABS: ALBUMIN 2.8 g/dl (3.3-4.9)
[2017-01-02 08:40] LABS: ALBUMIN/GLOBULIN RATIO 0.75; BILIRUBIN,INDIRECT 0.3 mg/dl (0-1.1); BILIRUBIN,TOTAL 0.3 mg/dl (0.2-1.3); CREATINE KINASE < 20 IU/L (23-200); CREATININE 0.57 mg/dl (0.44-1.00); TOTAL PROTEIN 6.5 g/dl (6.1-8.1)
[2017-01-02 08:41] LABS: CALCIUM 7.9 mg/dl (8.4-10.2); MAGNESIUM 1.3 mg/dl (1.7-2.5)
[2017-01-02 08:54] LABS: CK-MB < 0.22 ng/ml (0.0-2.4); TROPONIN-I < 0.012 ng/ml (0.00-0.12)
[2017-01-02] MEDS: CEFTRIAXONE 1 GM/50 ML (PMX) 50 ML IVPB SCH (08:54)
[2017-01-02] MEDS: ENOXAPARIN 40 MG/0.4 ML SYG SC SCH (08:55)
--- NOTE | 2017-01-02 09:32 | RADRPT ---
PROCEDURE: US Carotids. CLINICAL INDICATION: bruit , syncope TECHNIQUE: Multiple sonographic of the carotid bifurcation region and vertebral arteries were obta ined utilizing skelton scale, duplex and color-flow imaging. The images were reviewed on a PACS worksta tion. COMPARISON: No prior studies are available for comparison. FINDINGS: Evaluation of the right carotid bifurcation region reveals mild calcific atherosclerotic disease. Th ere is a 36% stenosis in the right carotid bulb. Evaluation of the left carotid bifurcation region reveals no significant calcific atherosclerotic di sease. There is antegrade flow within the vertebral arteries bilaterally. RIGHT CAROTID MEASUREMENTS: Common Carotid Grktwx70.4 (cm/sec) Internal Carotid Artery - [id number] (cm/sec) Internal Carotid Artery - mid58.6 (cm/sec) Internal Carotid Artery - .1 (cm/sec) Internal Carotid/Common Carotid1.18 LEFT CAROTID MEASUREMENTS: Common Carotid Gbeskh81.4 (cm/sec) Internal Carotid Artery - dtilcqil97.6 (cm/sec) Internal Carotid Artery - mid69.8 (cm/sec) Internal Carotid Artery - ykzjpq61 (cm/sec) Internal Carotid/Common Carotid1.17 RPTAT: AA IMPRESSION: No evidence for hemodynamically significant stenosis in the bilateral internal carotid arteries - va lidated velocity measurements with angiographic measurements, velocity criteria are extrapolated fro m diameter data as defined by the Society of Radiologists in Ultrasound Consensus Conference Radiolo gy 2003; 229;340-346. This study does indirectly reference the measurement of the distal ICA diamet er as the denominator for stenosis measurement. Normal antegrade flow in the vertebral arteries bilaterally. .Agustin Islas MD, Date Time Electronically viewed and signed by .Agustin Islas MD, MD on 01/02/2017 09:32 .S/
[2017-01-02 09:39] LABS: THYROID STIMULATING HORMONE 1.3 MIU/L (0.465-4.680)
--- NOTE | 2017-01-02 14:29 | RADRPT ---
Echocardiogram Report Patient Name: BLANCO SIMMONS Gender: Female Date: 1960 Study Date: 02-Jan-2017 Enterprise Architect: Aakash Masters [facility] Location: [id number] Ref. Physician: ANGEL FORTE Quality: Good Procedures: Transthoracic echocardiogram with complete 2D, M-Mode, and doppler examination. Indications: Syncope. 2D/M Mode Doppler Measurement Value Normal Ranges Measurement Value Normal Ranges LVIDd 2D 4.2 3.5 - 5.6 cm AV Peak Ganesh 1.2 m/sec LVIDs 2D 1.7 2.1 - 4.1 cm AV Peak PG 5.0 mmHg FS 2D 59.8 % LVOT Peak Ganesh 0.9 m/sec LVPWd 2D 0.8 0.6 - 1.1 cm LVOT Peak PG 3.0 mmHg IVSd 2D 0.9 0.6 - 1.1 cm MV E Peak Ganesh 0.5 m/sec IVS/LVPW 2D 1.0 MV A Peak Ganesh 0.9 m/sec AoR Diam 2D 2.9 2.0 - 3.7 cm MV E/A 0.5 LA/Ao 2D 1 0 - 1 MV Decel Time 151 msec EDV 2D 74.1 cm3 MV E/A 0.5 ESV 2D 4.8 cm3 TR Peak Ganesh 2.3 m/sec LA Dimen 2D 2.6 2.3 - 4.0 cm TR Peak PG 22.0 mmHg RVSP 25.0 mmHg Findings Left Ventricle: Normal left ventricular systolic function. Normal left ventricular cavity size. Normal left ventricular wall thickness. Ejection fraction is visually estimated at 60 %. Tissue Doppler/Mitral Doppler indices are consistent with impaired relaxation (Stage I diastolic dysfunction). Right Ventricle: Normal right ventricular size. Normal right ventricular systolic function. Left Atrium: The left atrium is normal in size. Right Atrium: The right atrium is normal in size. Mitral Valve: Normal appearance and function of the mitral valve with trace physiologic regurgitation. Aortic Valve: Normal appearance of the aortic valve. No significant aortic stenosis or insufficiency. Tricuspid Valve: Normal appearance of the tricuspid valve. Estimated peak PA systolic pressure 25 mmHg. There is trace tricuspid regurgitation. Pulmonic Valve: Normal pulmonic valve appearance. Pericardium: Normal pericardium with no significant pericardial effusion. Aorta: Normal aortic root. IVC: Normal size and normal respiratory collapse consistent with normal right atrial pressure. Conclusions 1.Normal left ventricular systolic function. Normal left ventricular cavity size. Normal left ventricular wall thickness. Ejection fraction is visually estimated at 60 %. Tissue Doppler/Mitral Doppler indices are consistent with impaired relaxation (Stage I diastolic dysfunction). 2.Normal right ventricular size. Normal right ventricular systolic function. 3.The left atrium is normal in size. 4.The right atrium is normal in size. 5.No significant valvular stenosis or regurgitation seen. 6.Normal pericardium with no significant pericardial effusion. Electronically Signed By: Duy Quarles 02-Jan-2017 14:29:13 -0700 Patient Name: BLANCO SIMMONS Study Date: 02-Jan-2017 [id number]
[2017-01-02 15:42] LABS: CREATINE KINASE < 20 IU/L (23-200)
[2017-01-02 15:57] LABS: CK-MB < 0.22 ng/ml (0.0-2.4); TROPONIN-I < 0.012 ng/ml (0.00-0.12)
[2017-01-02] MEDS ORDERED: MAGNESIUM SULFATE 3 GM in SOD CHLORIDE 0.9% 100 ML IVPB ONE (16:30)
[2017-01-02] MEDS: HYDROCODONE/APAP (10/325) TAB PO PRN (17:01)
[2017-01-02] MEDS: ONDANSETRON 4 MG INJ IV PRN (17:43)
--- NOTE | 2017-01-02 21:40 | CONS ---
Date/Time of Note Date/Time of Note DATE: 01/02/17 TIME: 21:15 Assessment/Plan Assessment/Plan Chief Complaint/Hosp Course 56 yo female with malignant ascites who has since been diagnosed with FIGO stage III ovarian cancer. Patient now presents 4 days after chemotherapy with carboplatin and taxol s/p syncopal event. Brain CT was negative. Pt now has lactic acidosis secondary to urosepsis. #urosepsis -continue antibiotics with Zosyn and Vancomycin # ovarian ca, papillary serous , FIGO stage IIIc -once patient's lactate has normalized and she has been treated for infection will given next dose of single agent taxol in the hospital #Leukocytosis - I believe this is likely secondary to her splenectomy as well as her active infection -continue antibiotics for UTI Approximately 40 min were spent at patient's bedside and in coordination of her care Problems: Consultation Date/Type/Reason Admit Date/Time January 02, 2017 at 03:35 Date of Consultation: January 02, 2017 Type of Consultation: Oncology Reason for Consultation metastatic ovarian cancer Referring Provider: ANGEL FORTE Hx of Present Illness 56 yo female who first presented to [facility] in 11/2016 when she was diagnosed with FIGO stage IIIC ovarian cancer. The patient underwent optimal debulking surgery with Dr. Garcia where an 8.5cm tumor in the right ovary, 1.2cm tumor in left ovary, and 1.5cm tumor in left fallopian tube were removed. The disease was noted to involve her omentum, spleen, uterus, cervix and diaphragm. The received her first dose of chemotherapy 7-8 days after the surgery then resumed chemotherapy in our office last week. 4 days after chemotherapy pt became extremely weak. Yesterday patient synopsized and fell in her bathroom prompting her niece to bring her to the hospital. Pt states she regained consciousness within a few seconds. Since admission pt has been found with lactic acidosis and is being treated for a UTI with zosyn and ceftriaxone. Constitutional: other (weak), poor po Eyes: no complaints ENT: no complaints Respiratory: no complaints Cardiovascular: lightheadedness, no complaints Gastrointestinal: constipation Genitourinary: no complaints Musculoskeletal: bone/joint pain Past Medical History Cirrhosis, metastatic ovarian cancer - FIGO stage IIIc, history of malignant ascites, hypertension, anemia Past Surgical History Cholecystectomy, splenectomy, Port-A-Cath, Extended hysterectomy with bilateral salpingo-oophorectomy, Bilateral ureteral dissection with repositioning, Splenectomy with distal pancreatectomy, Omentectomy with cytoreduction, Pelvic and aortic lymph node dissection and Diaphragm stripping Family History Significant Family History: no pertinent family hx Social History Alcohol Use: none Smoking Status: Never smoker Drug Use: none Exam/Review of Systems Vital Signs Vitals Vital Signs Date Time Temp Pulse Resp B/P Pulse Ox O2 Delivery O2 Flow Rate FiO2 01/02/17 20:28 98.3 80 20 114/77 96 01/02/17 04:10 Room Air Exam Constitutional: alert, frail, oriented Psych: no complaints Head: normocephalic Eyes: nl conjunctiva ENMT: nl external ears & nose Neck: non-tender, supple Respiratory: clear to auscultation, normal air movement Cardiovascular: regular rate and rhythm Gastrointestinal: soft, surgical scars Musculoskeletal: nl extremities to inspection Extremities: normal pulses Results Result Diagram: 01/02/17 0718 01/02/17 0718 Results 24 hrs Laboratory Tests Test 01/02/17 02:13 01/02/17 02:18 01/02/17 02:30 01/02/17 07:18 Urine Color LT. YELLOW Urine Clarity SL HAZY Urine pH 7.0 Urine Specific [place] 1.010 Urine Ketones NEGATIVE Urine Nitrite NEGATIVE Urine Bilirubin NEGATIVE Urine Urobilinogen 1.0 E.U./dL Urine Leukocyte Esterase TRACE H Urine Microscopic RBC 5-10 Urine Microscopic WBC 5-10 Urine Squamous Epithelial Cells MODERATE Urine Bacteria OCCASIONAL Urine Hemoglobin 2+ H Urine Glucose NEGATIVE Urine Total Protein 1+ H Bedside Urine pH (LAB) 7.5 Bedside Urine Protein (LAB) 2+ H Bedside Urine Glucose (UA) Negative Bedside Urine Ketones (LAB) Negative Bedside Urine Blood 1+ H Bedside Urine Nitrite (LAB) Negative Bedside Urine Leukocyte Esterase (L 1+ H Lactic Acid Level 0.8 2.4 H White Blood Count 13.2 #H Red Blood Count 3.85 L Hemoglobin 11.4 L Hematocrit 34.9 L Mean Corpuscular Volume 90.6 Mean Corpuscular Hemoglobin 29.6 Mean Corpuscular Hemoglobin Concent 32.7 Red Cell Distribution Width 18.1 H Platelet Count 404 # Mean Platelet Volume 9.4 Neutrophils % 73.7 Lymphocytes % 19.1 Monocytes % 5.4 Eosinophils % 0.0 Basophils % 0.6 Nucleated Red Blood Cells % 0.0 Neutrophils # 9.8 H Lymphocytes # 2.5 Monocytes # 0.7 Eosinophils # 0.0 Basophils # 0.1 Nucleated Red Blood Cells # 0.0 Sodium Level 135 Potassium Level 5.0 Chloride Level 107 Carbon Dioxide Level 23 Anion Gap 10 Blood Urea Nitrogen 15 Creatinine 0.57 Glucose Level 102 Calcium Level 7.9 L Magnesium Level 1.3 L Total Bilirubin 0.3 Direct Bilirubin 0.00 Indirect Bilirubin 0.3 Aspartate Amino Transf (AST/SGOT) 18 Alanine Aminotransferase (ALT/SGPT) 17 Alkaline Phosphatase 57 Creatine Kinase < 20 L Creatine Kinase Index Creatinine Kinase MB (Mass) < 0.22 Troponin I < 0.012 Total Protein 6.5 # Albumin 2.8 #L Globulin 3.70 H Albumin/Globulin Ratio 0.75 Thyroid Stimulating Hormone (TSH) 1.300 Test 01/02/17 14:34 01/02/17 14:35 Creatine Kinase < 20 L Creatine Kinase Index Creatinine Kinase MB (Mass) < 0.22 Troponin I < 0.012 CA 125 Antigen 106.0 H Medications Medications Current Medications Sodium Chloride (NS) 1,000 ml @ 50 mls/hr Q20H IV Last administered on 06:35; Admin Dose 50 MLS/HR; Start 01/02/17 at 06:35 Lorazepam (Ativan) 0.5 mg Q6H PRN IV ANXIETY; Start 01/02/17 at 07:00 Ondansetron HCl (Zofran Inj) 4 mg Q6H PRN IV NAUSEA AND/OR VOMITING Last administered on 01/02/17 17:43; Admin Dose 4 MG; Start 01/02/17 at 07:00 Acetaminophen (Tylenol Tab) 650 mg Q6H PRN PO PAIN LEVEL 1-3 OR FEVER; Start at 07:00 Docusate Sodium (Colace) 100 mg Q12H PRN PO CONSTIPATION; Start 01/02/17 at 07: 00 Bisacodyl (Dulcolax) 5 mg DAILY PRN PO CONSTIPATION; Start 01/02/17 at 07:00 Pantoprazole (Protonix Iv) 40 mg DAILY@06 IV ; Start 01/02/17 at 07:00 Enoxaparin Sodium 40 mg 40 mg DAILY SC ; Start 01/02/17 at 09:00 Ceftriaxone Sodium (Rocephin) 50 ml @ 100 mls/hr Q24H IVPB Last administered on 01/02/17 08:54; Admin Dose 100 MLS/HR; Start 01/02/17 at 07:00 Acetaminophen/ Hydrocodone Bitart ([place] ([id number])) 1 tab Q6H PRN PO PAIN Last administered on 01/02/17 17:01; Admin Dose 1 TAB; Start 01/02/17 at 15:30 FLORINDA COATES M.D. January 02, 2017 21:25
[2017-01-03] VITALS (7 sets, daily range): BP systolic 102–152; BP diastolic 59–77; PULSE 87–100; RESP 18–20
[2017-01-03] MEDS: ALBUTEROL 18 GM INHALER INH SCH ×4 (01:59→21:09)
[2017-01-03] MEDS: SOD CHLORIDE 0.9% 1,000 ML IV SCH ×3 (02:35→18:00)
[2017-01-03] MEDS: ONDANSETRON 4 MG INJ IV PRN (04:54)
[2017-01-03 04:57] LABS: ADD SCAN DIFF NO
[2017-01-03 05:03] LABS: BASOPHIL # 0.1 10^3/ul (0.0-0.1); BASOPHILS % 0.5 % (0.0-2.0); EOSINOPHILS % 0.2 % (0.0-7.0); HEMATOCRIT 31.3 % (37.0-47.0); HEMOGLOBIN 10.4 g/dl (12.0-16.0); LYMPHOCYTES # 2.9 10^3/ul (0.8-2.9); LYMPHOCYTES % 18.7 % (15.0-51.0); MEAN CORPUSCULAR HEMOGLOBIN 29.6 pg (29.0-33.0); MEAN CORPUSCULAR HGB CONC 33.2 g/dl (32.0-37.0); MEAN CORPUSCULAR VOLUME 89.2 fl (82.0-101.0); MEAN PLATELET VOLUME 9.4 fl (7.4-10.4); MONOCYTE # 1.4 10^3/ul (0.3-0.9); NEUTROPHILS % 70.8 % (39.0-77.0); PLATELET COUNT 370 10^3/UL (140-415); RED BLOOD COUNT 3.51 10^6/ul (4.20-5.40); RED CELL DISTRIBUTION WIDTH 17.9 % (11.5-14.5); WHITE BLOOD COUNT 15.6 10^3/ul (4.8-10.8)
[2017-01-03] MEDS: HYDROCODONE/APAP (10/325) TAB PO PRN ×3 (05:03→21:09)
[2017-01-03 05:43] LABS: MAGNESIUM 1.8 mg/dl (1.7-2.5); PHOSPHORUS 3.4 mg/dl (2.5-4.9); POTASSIUM 4.1 mmol/L (3.5-5.1)
[2017-01-03] MEDS: PANTOPRAZOLE 40 MG INJ IV SCH (05:45)
[2017-01-03 05:46] LABS: CREATININE 0.56 mg/dl (0.44-1.00)
[2017-01-03 05:47] LABS: CALCIUM 8.4 mg/dl (8.4-10.2)
[2017-01-03] MEDS: CEFTRIAXONE 1 GM/50 ML (PMX) 50 ML IVPB SCH (06:53)
[2017-01-03] MEDS: ENOXAPARIN 40 MG/0.4 ML SYG SC SCH (08:26)
[2017-01-03] MEDS ORDERED: VITAMIN A & D 5 GM OINT PACKET TOP ONE (09:51)
--- NOTE | 2017-01-03 14:22 | PN ---
Date/Time of Note Date/Time of Note DATE: 01/03/17 TIME: 14:14 Assessment/Plan VTE Prophylaxis VTE Prophylaxis Intervention: LMWH Lines/Catheters IV Catheter Type (from [facility]): Peripheral IV Urinary Cath still in place: No Assessment/Plan Assessment/Plan 1. Severe sepsis possibley due to UTI 2. Syncopal episode 2/2 moderate to severe dehydration 3. Moderate to severe dehydration 4. UTI with URine cx growing three different organisms 5. Metastatic ovarian cancer s/p recent chemo last week 6. Anemia of chronic disease 7. Hypertension 8. H/o Spleenectomy Plan: Continue IV abx ceftriaxone for UTI, Urine cx grew three different organisms, liklye contaminant [place] has been following send repeat Urine CX afebrile IVF NS at 50 cc/hr Electrolytes replacement as needed Lovenox for GI prophylaxis protonix for GI prophylaxis Subjective 24 Hr Interval Summary Free Text/Dictation urine cx grew three different organisms,BP stable, low grade temp Exam/Review of Systems Vital Signs Vitals Vital Signs Date Time Temp Pulse Resp B/P Pulse Ox O2 Delivery O2 Flow Rate FiO2 01/03/17 08:23 97.7 93 18 138/73 99 01/02/17 04:10 Room Air Intake and Output 01/02/17 01/02/17 01/03/17 15:00 23:00 07:00 Intake Total 1000 ml 520 ml Output Total 1300 ml Balance 1000 ml -780 ml Exam Constitutional: alert Psych: no complaints Head: normocephalic ENMT: nl external ears & nose Neck: supple Respiratory: clear to auscultation, diminished breath sounds Cardiovascular: nl pulses, regular rate and rhythm Gastrointestinal: non-tender, soft Musculoskeletal: nl extremities to inspection Extremities: normal pulses 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 Results Result Diagram: 01/03/17 0435 01/03/17 0435 Results 24 hrs Laboratory Tests Test 01/02/17 14:34 01/02/17 14:35 01/03/17 04:35 Creatine Kinase < 20 L Creatine Kinase Index Creatinine Kinase MB (Mass) < 0.22 Troponin I < 0.012 CA 125 Antigen 106.0 H White Blood Count 15.6 H Red Blood Count 3.51 L Hemoglobin 10.4 L Hematocrit 31.3 L Mean Corpuscular Volume 89.2 Mean Corpuscular Hemoglobin 29.6 Mean Corpuscular Hemoglobin Concent 33.2 Red Cell Distribution Width 17.9 H Platelet Count 370 Mean Platelet Volume 9.4 Neutrophils % 70.8 Lymphocytes % 18.7 Monocytes % 9.0 Eosinophils % 0.2 Basophils % 0.5 Nucleated Red Blood Cells % 0.0 Neutrophils # 11.0 H Lymphocytes # 2.9 Monocytes # 1.4 H Eosinophils # 0.0 Basophils # 0.1 Nucleated Red Blood Cells # 0.0 Sodium Level 130 L Potassium Level 4.1 Chloride Level 104 Carbon Dioxide Level 24 Anion Gap 6 L Blood Urea Nitrogen 11 Creatinine 0.56 Glucose Level 97 Calcium Level 8.4 Phosphorus Level 3.4 Magnesium Level 1.8 Medications Medications Current Medications Sodium Chloride (NS) 1,000 ml @ 50 mls/hr Q20H IV Last administered on 09:23; Admin Dose 50 MLS/HR; Start 01/02/17 at 06:35 Lorazepam (Ativan) 0.5 mg Q6H PRN IV ANXIETY; Start 01/02/17 at 07:00 Ondansetron HCl (Zofran Inj) 4 mg Q6H PRN IV NAUSEA AND/OR VOMITING Last administered on 01/03/17 04:54; Admin Dose 4 MG; Start 01/02/17 at 07:00 Acetaminophen (Tylenol Tab) 650 mg Q6H PRN PO PAIN LEVEL 1-3 OR FEVER; Start at 07:00 Docusate Sodium (Colace) 100 mg Q12H PRN PO CONSTIPATION; Start 01/02/17 at 07: 00 Bisacodyl (Dulcolax) 5 mg DAILY PRN PO CONSTIPATION; Start 01/02/17 at 07:00 Pantoprazole (Protonix Iv) 40 mg DAILY@06 IV Last administered on 01/03/17 05: 45; Admin Dose 40 MG; Start 01/02/17 at 07:00 Enoxaparin Sodium 40 mg 40 mg DAILY SC Last administered on 01/03/17 08:26; Admin Dose 40 MG; Start 01/02/17 at 09:00 Ceftriaxone Sodium (Rocephin) 50 ml @ 100 mls/hr Q24H IVPB Last administered on 01/03/17 06:53; Admin Dose 100 MLS/HR; Start 01/02/17 at 07:00 Acetaminophen/ Hydrocodone Bitart ([place] (10)) 1 tab Q6H PRN PO PAIN Last administered on 01/03/17t 05:03; Admin Dose 1 TAB; Start 01/02/17 at 15:30 LORI SANCHEZ MD January 03, 2017 14:21
--- NOTE | 2017-01-03 14:58 | CONS ---
Date/Time of Note Date/Time of Note DATE: 01/03/17 TIME: 14:53 Assessment/Plan Assessment/Plan Chief Complaint/Hosp Course 56 yo female with malignant ascites who has since been diagnosed with FIGO stage III ovarian cancer. Patient now presents 4 days after chemotherapy with carboplatin and taxol s/p syncopal event. Brain CT was negative. Pt now has lactic acidosis secondary to urosepsis. #urosepsis -continue antibiotics with ceftriaxone -pt now clinically stable. -repeat urine culture is pending # ovarian ca, papillary serous , FIGO stage IIIc -pt is stable from an infection standpoint. vitals ok and she is afebrile -given her severe and aggressive disease, will give day 8 dose of Taxol at this time. -taxol 125 mg ordered to be given when medication is ready #Leukocytosis - I believe this is likely secondary to her splenectomy as well as her active infection -continue antibiotics for UTI Approximately 40 min were spent at patient's bedside and in coordination of her care Problems: Consultation Date/Type/Reason Admit Date/Time January 02, 2017 at 03:35 Initial Consult Date 01/02/17 Type of Consultation: Oncology Reason for Consultation ovarian cancer, on chemotherapy/ syncope Referring Provider: ANGEL FORTE 24 HR Interval Summary Free Text/Dictation patient continues on antibiotics. UCX grew 3 different organisms thought to be contaminant. pt afebrile. Exam/Review of Systems Vital Signs Vitals Vital Signs Date Time Temp Pulse Resp B/P Pulse Ox O2 Delivery O2 Flow Rate FiO2 01/03/17 08:23 97.7 93 18 138/73 99 01/02/17 04:10 Room Air Intake and Output 01/02/17 01/02/17 01/03/17 15:00 23:00 07:00 Intake Total 1000 ml 520 ml Output Total 1300 ml Balance 1000 ml -780 ml Exam Constitutional: alert, oriented Psych: no complaints Head: atraumatic, normocephalic Eyes: nl conjunctiva ENMT: nl external ears & nose Neck: non-tender, supple Respiratory: clear to auscultation Cardiovascular: regular rate and rhythm Gastrointestinal: soft Musculoskeletal: nl extremities to inspection Results Result Diagram: 01/03/17 0435 01/03/17 0435 Results 24 hrs Laboratory Tests Test 01/03/17 04:35 White Blood Count 15.6 H Red Blood Count 3.51 L Hemoglobin 10.4 L Hematocrit 31.3 L Mean Corpuscular Volume 89.2 Mean Corpuscular Hemoglobin 29.6 Mean Corpuscular Hemoglobin Concent 33.2 Red Cell Distribution Width 17.9 H Platelet Count 370 Mean Platelet Volume 9.4 Neutrophils % 70.8 Lymphocytes % 18.7 Monocytes % 9.0 Eosinophils % 0.2 Basophils % 0.5 Nucleated Red Blood Cells % 0.0 Neutrophils # 11.0 H Lymphocytes # 2.9 Monocytes # 1.4 H Eosinophils # 0.0 Basophils # 0.1 Nucleated Red Blood Cells # 0.0 Sodium Level 130 L Potassium Level 4.1 Chloride Level 104 Carbon Dioxide Level 24 Anion Gap 6 L Blood Urea Nitrogen 11 Creatinine 0.56 Glucose Level 97 Calcium Level 8.4 Phosphorus Level 3.4 Magnesium Level 1.8 Medications Medications Current Medications Sodium Chloride (NS) 1,000 ml @ 50 mls/hr Q20H IV Last administered on 09:23; Admin Dose 50 MLS/HR; Start 01/02/17 at 06:35 Lorazepam (Ativan) 0.5 mg Q6H PRN IV ANXIETY; Start 01/02/17 at 07:00 Ondansetron HCl (Zofran Inj) 4 mg Q6H PRN IV NAUSEA AND/OR VOMITING Last administered on 01/03/17 04:54; Admin Dose 4 MG; Start 01/02/17 at 07:00 Acetaminophen (Tylenol Tab) 650 mg Q6H PRN PO PAIN LEVEL 1-3 OR FEVER; Start at 07:00 Docusate Sodium (Colace) 100 mg Q12H PRN PO CONSTIPATION; Start 01/02/17 at 07: 00 Bisacodyl (Dulcolax) 5 mg DAILY PRN PO CONSTIPATION; Start 01/02/17 at 07:00 Pantoprazole (Protonix Iv) 40 mg DAILY@06 IV Last administered on 01/03/17 05: 45; Admin Dose 40 MG; Start 01/02/17 at 07:00 Enoxaparin Sodium 40 mg 40 mg DAILY SC Last administered on 01/03/17 08:26; Admin Dose 40 MG; Start 01/02/17 at 09:00 Ceftriaxone Sodium (Rocephin) 50 ml @ 100 mls/hr Q24H IVPB Last administered on 01/03/17 06:53; Admin Dose 100 MLS/HR; Start 01/02/17 at 07:00 Acetaminophen/ Hydrocodone Bitart ([place] ()) 1 tab Q6H PRN PO PAIN Last administered on 01/03/17 05:03; Admin Dose 1 TAB; Start 01/02/17 at 15:30 FLORINDA COATES M.D. January 03, 2017 14:58
[2017-01-03] MEDS ORDERED: METHYLPREDNISOLONE 125 MG INJ IV PRN (18:00)
[2017-01-03] MEDS ORDERED: DIPHENHYDRAMINE 50 MG INJ IV PRN (18:00)
[2017-01-03] MEDS ORDERED: ONDANSETRON INJ 8 MG in SOD CHLORIDE 0.9% 50 ML IV PRN (18:00)
[2017-01-03] MEDS: PHENAZOPYRIDINE 200 MG TAB PO SCH (22:00)
[2017-01-03] MEDS ORDERED: PACLITAXEL IV SCH (22:00)
[2017-01-03] MEDS ORDERED: ONDANSETRON INJ 16 MG, DEXAMETHASONE 4 MG/ML 10 MG in DEXTROSE 5% 50 ML IV ONE (22:00)
[2017-01-03] MEDS ORDERED: SOD CHLORIDE 0.9% IV SCH (22:00)
[2017-01-04 00:15] VITALS: BP 115/60; PULSE 98; RESP 19
[2017-01-04] MEDS: SOD CHLORIDE 0.9% 1,000 ML IV SCH ×3 (00:25→18:35)
[2017-01-04] MEDS ORDERED: FLUCONAZOLE 150 MG TAB PO ONE (01:00)
[2017-01-04 01:15] VITALS: BP 121/63; PULSE 98; RESP 18
[2017-01-04] MEDS: ALBUTEROL 18 GM INHALER INH SCH ×4 (02:00→20:00)
[2017-01-04 02:30] VITALS: BP 126/71; PULSE 86; RESP 17
[2017-01-04 05:10] LABS: ADD SCAN DIFF NO
[2017-01-04 05:18] LABS: BASOPHILS % 0.2 % (0.0-2.0); HEMATOCRIT 30.4 % (37.0-47.0); HEMOGLOBIN 10.1 g/dl (12.0-16.0); LYMPHOCYTES # 0.9 10^3/ul (0.8-2.9); MEAN CORPUSCULAR HEMOGLOBIN 29.8 pg (29.0-33.0); MEAN CORPUSCULAR HGB CONC 33.2 g/dl (32.0-37.0); MEAN CORPUSCULAR VOLUME 89.7 fl (82.0-101.0); MEAN PLATELET VOLUME 9.7 fl (7.4-10.4); MONOCYTE # 0.3 10^3/ul (0.3-0.9); MONOCYTES % 2.4 % (0.0-11.0); NEUTROPHIL # 11.9 10^3/ul (1.6-7.5); NEUTROPHILS % 89.6 % (39.0-77.0); PLATELET COUNT 374 10^3/UL (140-415); RED BLOOD COUNT 3.39 10^6/ul (4.20-5.40); WHITE BLOOD COUNT 13.3 10^3/ul (4.8-10.8)
[2017-01-04] MEDS: PHENAZOPYRIDINE 200 MG TAB PO SCH ×3 (05:24→21:02)
[2017-01-04 05:37] LABS: INR 1.13; PROTIME 14.5 Sec (12.2-14.2); PT RATIO 1.1
[2017-01-04 06:05] LABS: ALBUMIN 3.4 g/dl (3.3-4.9); ALBUMIN/GLOBULIN RATIO 0.91; BILIRUBIN,INDIRECT 0.2 mg/dl (0-1.1); BILIRUBIN,TOTAL 0.2 mg/dl (0.2-1.3); CALCIUM 8.6 mg/dl (8.4-10.2); CREATININE 0.49 mg/dl (0.44-1.00); POTASSIUM 4.1 mmol/L (3.5-5.1); TOTAL PROTEIN 7.1 g/dl (6.1-8.1)
[2017-01-04] MEDS: CEFTRIAXONE 1 GM/50 ML (PMX) 50 ML IVPB SCH (06:08)
[2017-01-04] MEDS: PANTOPRAZOLE 40 MG INJ IV SCH (06:08)
[2017-01-04 08:36] VITALS: BP 113/68; RESP 18
[2017-01-04] MEDS: ENOXAPARIN 40 MG/0.4 ML SYG SC SCH (10:26)
--- NOTE | 2017-01-04 12:19 | CONS ---
Date/Time of Note Date/Time of Note DATE: 01/04/17 TIME: 12:18 Assessment/Plan Assessment/Plan Chief Complaint/Hosp Course 56 yo female with malignant ascites who has since been diagnosed with FIGO stage III ovarian cancer. Patient now presents 4 days after chemotherapy with carboplatin and taxol s/p syncopal event. Brain CT was negative. Pt now has lactic acidosis secondary to urosepsis. #urosepsis -continue antibiotics with ceftriaxone -pt now clinically stable. -repeat urine culture demonstrates no growth # ovarian ca, papillary serous , FIGO stage IIIc -pt is stable from an infection standpoint. vitals ok and she is afebrile -given her severe and aggressive disease, pt was given her 8 dose of Taxol at this time. #Leukocytosis - I believe this is likely secondary to her splenectomy as well as her active infection -continue antibiotics for UTI Approximately 40 min were spent at patient's bedside and in coordination of her care Problems: Consultation Date/Type/Reason Admit Date/Time January 02, 2017 at 03:35 Initial Consult Date 01/02/17 Type of Consultation: Oncology Referring Provider: ANGEL FORTE 24 HR Interval Summary Free Text/Dictation pt received cycle 1 day 8 dose of Taxol yesterday Exam/Review of Systems Vital Signs Vitals Vital Signs Date Time Temp Pulse Resp B/P Pulse Ox O2 Delivery O2 Flow Rate FiO2 01/04/17 08:36 97.5 83 18 113/68 97 01/04/17 02:30 Room Air Intake and Output 01/03/17 01/03/17 01/04/17 15:00 23:00 07:00 Intake Total 450 ml 1010.5 ml 2000 ml Output Total 700 ml 1800 ml Balance 450 ml 310.5 ml 200 ml Exam Constitutional: alert, oriented Psych: nl mood/affect, no complaints Head: normocephalic Eyes: nl conjunctiva ENMT: nl external ears & nose Neck: non-tender, supple Respiratory: clear to auscultation, normal air movement Cardiovascular: regular rate and rhythm Gastrointestinal: soft Musculoskeletal: nl extremities to inspection Results Result Diagram: 01/04/17 0430 01/04/17 0430 Results 24 hrs Laboratory Tests Test 01/03/17 16:25 01/04/17 04:30 Lactic Acid Level 0.9 White Blood Count 13.3 H Red Blood Count 3.39 L Hemoglobin 10.1 L Hematocrit 30.4 L Mean Corpuscular Volume 89.7 Mean Corpuscular Hemoglobin 29.8 Mean Corpuscular Hemoglobin Concent 33.2 Red Cell Distribution Width 18.0 H Platelet Count 374 Mean Platelet Volume 9.7 Neutrophils % 89.6 H Lymphocytes % 7.0 L Monocytes % 2.4 Eosinophils % 0.0 Basophils % 0.2 Nucleated Red Blood Cells % 0.0 Neutrophils # 11.9 H Lymphocytes # 0.9 Monocytes # 0.3 Eosinophils # 0.0 Basophils # 0.0 Nucleated Red Blood Cells # 0.0 Prothrombin Time 14.5 H Prothrombin Time Ratio 1.1 INR International Normalized Ratio 1.13 Activated Partial Thromboplast Time 32.0 Sodium Level 133 L Potassium Level 4.1 Chloride Level 104 Carbon Dioxide Level 23 Anion Gap 10 Blood Urea Nitrogen 7 Creatinine 0.49 Glucose Level 133 Calcium Level 8.6 Total Bilirubin 0.2 Direct Bilirubin 0.00 Indirect Bilirubin 0.2 Aspartate Amino Transf (AST/SGOT) 14 L Alanine Aminotransferase (ALT/SGPT) 22 Alkaline Phosphatase 83 Total Protein 7.1 Albumin 3.4 Globulin 3.70 H Albumin/Globulin Ratio 0.91 Medications Medications Current Medications Sodium Chloride (NS) 1,000 ml @ 50 mls/hr Q20H IV Last administered on 09:23; Admin Dose 50 MLS/HR; Start 01/02/17 at 06:35 Lorazepam (Ativan) 0.5 mg Q6H PRN IV ANXIETY; Start 01/02/17 at 07:00 Ondansetron HCl (Zofran Inj) 4 mg Q6H PRN IV NAUSEA AND/OR VOMITING Last administered on 01/03/17 04:54; Admin Dose 4 MG; Start 01/02/17 at 07:00 Acetaminophen (Tylenol Tab) 650 mg Q6H PRN PO PAIN LEVEL 1-3 OR FEVER; Start at 07:00 Docusate Sodium (Colace) 100 mg Q12H PRN PO CONSTIPATION; Start 01/02/17 at 07: 00 Bisacodyl (Dulcolax) 5 mg DAILY PRN PO CONSTIPATION; Start 01/02/17 at 07:00 Pantoprazole (Protonix Iv) 40 mg DAILY@06 IV Last administered on 01/04/17 06: 08; Admin Dose 40 MG; Start 01/02/17 at 07:00 Enoxaparin Sodium 40 mg 40 mg DAILY SC Last administered on 01/04/17 10:26; Admin Dose 40 MG; Start 01/02/17 at 09:00 Ceftriaxone Sodium (Rocephin) 50 ml @ 100 mls/hr Q24H IVPB Last administered on 01/04/17 06:08; Admin Dose 100 MLS/HR; Start 01/02/17 at 07:00 Acetaminophen/ Hydrocodone Bitart 1 tab 1 tab Q6H PRN PO PAIN Last administered on 01/03/17 21:09; Admin Dose 1 TAB; Start 01/02/17 at 15:30 Sodium Chloride (NS) 1,000 ml @ 100 mls/hr Q10H IV Last administered on 00:25; Admin Dose 100 MLS/HR; Start 01/03/17 at 18:00 Diphenhydramine HCl (Benadryl) 25 mg Q4H PRN IV ALLERGIC REACTION; Start at 18:00 Methylprednisolone Sodium Succinate 60 mg 60 mg Q4H PRN IV ALLERGIC REACTION; Start 01/03/17 at 18:00 Ondansetron HCl/ Sodium Chloride (Zofran Inj/NS) 54 ml @ 216 mls/hr Q8H PRN IV NAUSEA AND/OR VOMITING; Start 01/03/17 at 18:00 Phenazopyridine HCl (Pyridium) 200 mg Q8 PO ; Start 01/03/17 at 22:00; Stop 01/05 at 21:59 FLORINDA COATES M.D. Jan 04, 2017 12:19
[2017-01-04] MEDS: BISACODYL (EC) 5 MG TAB PO PRN (14:25)
--- NOTE | 2017-01-04 17:14 | PN ---
Date/Time of Note Date/Time of Note DATE: 01/04/17 TIME: 17:12 Assessment/Plan VTE Prophylaxis VTE Prophylaxis Intervention: LMWH Lines/Catheters IV Catheter Type (from Nrsg): Rashid Central line still needed: Yes (chemotherapy access ) Urinary Cath still in place: No Assessment/Plan Assessment/Plan 1. Severe sepsis possibley due to UTI 2. Syncopal episode 2/2 moderate to severe dehydration 3. Moderate to severe dehydration 4. UTI with URine cx growing three different organisms 5. Metastatic ovarian cancer s/p recent chemo last week 6. Anemia of chronic disease 7. Hypertension 8. H/o Spleenectomy Plan: Continue IV abx ceftriaxone for UTI, Urine cx grew three different organisms, liklye contaminant , repeat Urine cx pending US pevlis and X ray pelvis for lower abd/pelvic pain since pt gives h/o Fall at home Oncology has been following IVF NS at 50 cc/hr Electrolytes replacement as needed to see pt Lovenox for GI prophylaxis protonix for GI prophylaxis Subjective 24 Hr Interval Summary Free Text/Dictation C/o lowe rabdominal pain, with distension Exam/Review of Systems Vital Signs Vitals Vital Signs Date Time Temp Pulse Resp B/P Pulse Ox O2 Delivery O2 Flow Rate FiO2 01/04/17 08:36 97.5 83 18 113/68 97 01/04/17 02:30 Room Air Intake and Output 01/03/17 01/03/17 01/04/17 15:00 23:00 07:00 Intake Total 450 ml 1010.5 ml 2000 ml Output Total 700 ml 1800 ml Balance 450 ml 310.5 ml 200 ml Exam Constitutional: alert Psych: no complaints Head: normocephalic ENMT: nl external ears & nose Neck: supple Respiratory: clear to auscultation, diminished breath sounds Cardiovascular: nl pulses, regular rate and rhythm Gastrointestinal: non-tender, soft Musculoskeletal: nl extremities to inspection Extremities: normal pulses 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 Results Result Diagram: 01/04/170 01/04/17 0430 Results 24 hrs Laboratory Tests Test 01/04/17 04:30 White Blood Count 13.3 H Red Blood Count 3.39 L Hemoglobin 10.1 L Hematocrit 30.4 L Mean Corpuscular Volume 89.7 Mean Corpuscular Hemoglobin 29.8 Mean Corpuscular Hemoglobin Concent 33.2 Red Cell Distribution Width 18.0 H Platelet Count 374 Mean Platelet Volume 9.7 Neutrophils % 89.6 H Lymphocytes % 7.0 L Monocytes % 2.4 Eosinophils % 0.0 Basophils % 0.2 Nucleated Red Blood Cells % 0.0 Neutrophils # 11.9 H Lymphocytes # 0.9 Monocytes # 0.3 Eosinophils # 0.0 Basophils # 0.0 Nucleated Red Blood Cells # 0.0 Prothrombin Time 14.5 H Prothrombin Time Ratio 1.1 INR International Normalized Ratio 1.13 Activated Partial Thromboplast Time 32.0 Sodium Level 133 L Potassium Level 4.1 Chloride Level 104 Carbon Dioxide Level 23 Anion Gap 10 Blood Urea Nitrogen 7 Creatinine 0.49 Glucose Level 133 Calcium Level 8.6 Total Bilirubin 0.2 Direct Bilirubin 0.00 Indirect Bilirubin 0.2 Aspartate Amino Transf (AST/SGOT) 14 L Alanine Aminotransferase (ALT/SGPT) 22 Alkaline Phosphatase 83 Total Protein 7.1 Albumin 3.4 Globulin 3.70 H Albumin/Globulin Ratio 0.91 Medications Medications Current Medications Sodium Chloride (NS) 1,000 ml @ 50 mls/hr Q20H IV Last administered on 09:23; Admin Dose 50 MLS/HR; Start 01/02/17 at 06:35 Lorazepam (Ativan) 0.5 mg Q6H PRN IV ANXIETY; Start 01/02/17 at 07:00 Ondansetron HCl (Zofran Inj) 4 mg Q6H PRN IV NAUSEA AND/OR VOMITING Last administered on 01/03/17 04:54; Admin Dose 4 MG; Start 01/02/17 at 07:00 Acetaminophen (Tylenol Tab) 650 mg Q6H PRN PO PAIN LEVEL 1-3 OR FEVER; Start at 07:00 Docusate Sodium (Colace) 100 mg Q12H PRN PO CONSTIPATION; Start 01/02/17 at 07: 00 Bisacodyl (Dulcolax) 5 mg DAILY PRN PO CONSTIPATION Last administered on 14:25; Admin Dose 5 MG; Start 01/02/17 at 07:00 Pantoprazole (Protonix Iv) 40 mg DAILY@06 IV Last administered on 01/04/17 06: 08; Admin Dose 40 MG; Start 01/02/17 at 07:00 Enoxaparin Sodium 40 mg 40 mg DAILY SC Last administered on 01/04/17 10:26; Admin Dose 40 MG; Start 01/02/17 at 09:00 Ceftriaxone Sodium (Rocephin) 50 ml @ 100 mls/hr Q24H IVPB Last administered on 01/04/17 06:08; Admin Dose 100 MLS/HR; Start 01/02/17 at 07:00 Acetaminophen/ Hydrocodone Bitart 1 tab 1 tab Q6H PRN PO PAIN Last administered on 01/03/17 21:09; Admin Dose 1 TAB; Start 01/02/17 at 15:30 Sodium Chloride (NS) 1,000 ml @ 100 mls/hr Q10H IV Last administered on 14:15; Admin Dose 100 MLS/HR; Start 01/03/17 at 18:00 Diphenhydramine HCl (Benadryl) 25 mg Q4H PRN IV ALLERGIC REACTION; Start at 18:00 Methylprednisolone Sodium Succinate 60 mg 60 mg Q4H PRN IV ALLERGIC REACTION; Start 01/03/17 at 18:00 Ondansetron HCl/ Sodium Chloride (Zofran Inj/NS) 54 ml @ 216 mls/hr Q8H PRN IV NAUSEA AND/OR VOMITING; Start 01/03/17 at 18:00 Phenazopyridine HCl (Pyridium) 200 mg Q8 PO ; Start 01/03/17 at 22:00; Stop 01/05 at 21:59 LORI SANCHEZ MD Jan 04, 2017 17:14
[2017-01-04] MEDS: HYDROCODONE/APAP (10/325) TAB PO PRN (17:35)
--- NOTE | 2017-01-04 18:30 | RADRPT ---
PROCEDURE: US Pelvis CLINICAL INDICATION: pain in lower abdomen, pelvic pain, rule out uterine pathology, status post h ysterectomy and oophorectomy TECHNIQUE: Multiple sonographic images of the pelvis were obtained utilizing a transabdominal and endovaginal technique. The images were reviewed on a PACS workstation. COMPARISON: None. FINDINGS: The uterus is absent consistent with the reported history. There is a 15.9 x 7.8 x 10.6 cm cystic l esion with lacy internal septations which is likely a hematoma which extends from the uterine fossa to the left upper abdominal quadrant. There is a second large likely hematoma which extends from th e uterine fossa to the left mid abdomen and measures 13.3 x 6.2 x 8.9 cm. No internal vascular flow is noted in either lesion. Bilateral ovaries are not visualized. No significant pelvic free fluid is identified. IMPRESSION: The uterus and bilateral ovaries are not visualized. There are 2 large likely hematomas in the uter ine fossa, which extend up to the left upper quadrant and mid abdomen and measure up to 15.9 cm and 13.3 cm respectively, as above. A CTA study of the abdomen and pelvis is recommended for further ev aluation. The uterus and bilateral ovaries are not visualized consistent with the reported history. RPTAT: EE Physician Vinicius Date Time Electronically viewed and signed by Nando Solis Physician on 01/04/2017 18:30 /
[2017-01-05] MEDS: ALBUTEROL 18 GM INHALER INH SCH ×4 (02:00→20:00)
[2017-01-05] MEDS: PHENAZOPYRIDINE 200 MG TAB PO SCH ×2 (05:30→16:52)
[2017-01-05] MEDS: BISACODYL (EC) 5 MG TAB PO PRN (05:59)
[2017-01-05] MEDS: PANTOPRAZOLE 40 MG INJ IV SCH (05:59)
[2017-01-05] MEDS: CEFTRIAXONE 1 GM/50 ML (PMX) 50 ML IVPB SCH (06:49)
[2017-01-05 07:00] VITALS: BP 118/62; RESP 18
[2017-01-05] MEDS: SOD CHLORIDE 0.9% 1,000 ML IV SCH ×4 (08:17→20:00)
--- NOTE | 2017-01-05 08:42 | RADRPT ---
PROCEDURE: XR Pelvis 1 View. CLINICAL INDICATION: Pelvic pain and trauma TECHNIQUE: Single AP view of the pelvis. COMPARISON: No prior studies are available for comparison. FINDINGS: The osseous structures are intact. No destructive bony lesions are observed. Mild narrowing of malia ateral hip joints is identified. Degenerative changes are noted in the lower lumbar spine. Soft ti ssues surrounding the pelvis appear normal. IMPRESSION: No visualized traumatic injury. Mild osteoarthritis of both hips. Degenerative changes in the lower lumbar spine. If there is high clinical suspicion for traumatic injury, further evaluation with CT should be consi dered. RPTAT: AA .Ortiz Shook MD, Date Time Electronically viewed and signed by .Ortiz Shook MD, on 01/05/2017 08:41 .P/
[2017-01-05] MEDS: ONDANSETRON 4 MG INJ IV PRN (08:46)
[2017-01-05] MEDS: ENOXAPARIN 40 MG/0.4 ML SYG SC SCH (11:07)
--- NOTE | 2017-01-05 12:47 | PN ---
Date/Time of Note Date/Time of Note DATE: 01/05/17 TIME: 12:44 Assessment/Plan VTE Prophylaxis VTE Prophylaxis Intervention: LMWH Lines/Catheters IV Catheter Type (from Nrsg): Rashid Central line still needed: Yes (for chemotherapy access ) Urinary Cath still in place: No Assessment/Plan Assessment/Plan 1. Severe sepsis possibley due to UTI 2. Syncopal episode 2/2 moderate to severe dehydration 3. Moderate to severe dehydration 4. UTI with URine cx growing three different organisms 5. Metastatic ovarian cancer s/p recent chemo last week 6. Anemia of chronic disease 7. Hypertension 8. H/o Spleenectomy Plan: Continue IV abx ceftriaxone for UTI, Urine cx grew three different organisms, liklye contaminant , repeat Urine cx pending X ray pelvis negative for fracture/dislocation, US pelvis showed intrauterine hematoma- will order CT abdomen+pelvis with Oral and IV cotrast to follow up on that Oncology has been following IVF NS at 50 cc/hr Electrolytes replacement as needed to see pt Lovenox for GI prophylaxis protonix for GI prophylaxis Exam/Review of Systems Vital Signs Vitals Vital Signs Date Time Temp Pulse Resp B/P Pulse Ox O2 Delivery O2 Flow Rate FiO2 01/05/17 07:00 98.7 74 18 118/62 99 01/04/17 02:30 Room Air Intake and Output 01/04/17 01/04/17 01/05/17 15:00 23:00 07:00 Intake Total 500 ml 980 ml 600 ml Output Total 700 ml Balance 500 ml 280 ml 600 ml Exam Constitutional: alert Psych: no complaints Head: normocephalic ENMT: nl external ears & nose Neck: supple Respiratory: clear to auscultation, diminished breath sounds Cardiovascular: nl pulses, regular rate and rhythm Gastrointestinal: non-tender, soft, TTP in lower abdomen Musculoskeletal: nl extremities to inspection Extremities: normal pulses 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 Results Result Diagram: 01/04/1742901/04/17 043 Medications Medications Current Medications Sodium Chloride (NS) 1,000 ml @ 50 mls/hr Q20H IV Last administered on 08:20; Admin Dose 50 MLS/HR; Start 01/02/17 at 06:35 Lorazepam (Ativan) 0.5 mg Q6H PRN IV ANXIETY; Start 01/02/17 at 07:00 Ondansetron HCl (Zofran Inj) 4 mg Q6H PRN IV NAUSEA AND/OR VOMITING Last administered on 01/05/17 08:46; Admin Dose 4 MG; Start 01/02/17 at 07:00 Acetaminophen (Tylenol Tab) 650 mg Q6H PRN PO PAIN LEVEL 1-3 OR FEVER; Start at 07:00 Docusate Sodium (Colace) 100 mg Q12H PRN PO CONSTIPATION; Start 01/02/17 at 07: 00 Bisacodyl (Dulcolax) 5 mg DAILY PRN PO CONSTIPATION Last administered on 05:59; Admin Dose 5 MG; Start 01/02/17 at 07:00 Pantoprazole (Protonix Iv) 40 mg DAILY@06 IV Last administered on 01/05/17 05: 59; Admin Dose 40 MG; Start 01/02/17 at 07:00 Enoxaparin Sodium 40 mg 40 mg DAILY SC Last administered on 01/05/17 11:07; Admin Dose 40 MG; Start 01/02/17 at 09:00 Ceftriaxone Sodium (Rocephin) 50 ml @ 100 mls/hr Q24H IVPB Last administered on 01/05/17 06:49; Admin Dose 100 MLS/HR; Start 01/02/17 at 07:00 Acetaminophen/ Hydrocodone Bitart 1 tab 1 tab Q6H PRN PO PAIN Last administered on 01/04/17 17:35; Admin Dose 1 TAB; Start 01/02/17 at 15:30 Sodium Chloride (NS) 1,000 ml @ 100 mls/hr Q10H IV Last administered on 08:17; Admin Dose 100 MLS/HR; Start 01/03/17 at 18:00 Diphenhydramine HCl (Benadryl) 25 mg Q4H PRN IV ALLERGIC REACTION; Start at 18:00 Methylprednisolone Sodium Succinate 60 mg 60 mg Q4H PRN IV ALLERGIC REACTION; Start 01/03/17 at 18:00 Ondansetron HCl/ Sodium Chloride (Zofran Inj/NS) 54 ml @ 216 mls/hr Q8H PRN IV NAUSEA AND/OR VOMITING; Start 01/03/17 at 18:00 Phenazopyridine HCl (Pyridium) 200 mg Q8 PO ; Start 01/03/17 at 22:00; Stop 01/05 at 21:59 LORI SANCHEZ MD Jan 05, 2017 12:47
[2017-01-05] MEDS ORDERED: BARIUM SULF 2% 450 ML BTL (BERRY SMOOTHIE) PO ONE (13:00)
[2017-01-05] MEDS ORDERED: IOHEXOL 14.3 MG(I)/ML (ADULT) BTL PO ONE (13:00)
--- NOTE | 2017-01-05 14:22 | CONS ---
Date/Time of Note Date/Time of Note DATE: 01/05/17 TIME: 14:19 Assessment/Plan Assessment/Plan Chief Complaint/Hosp Course 56 yo female with malignant ascites who has since been diagnosed with FIGO stage III ovarian cancer. Patient now presents 4 days after chemotherapy with carboplatin and taxol s/p syncopal event. Brain CT was negative. Pt now has lactic acidosis secondary to urosepsis. #urosepsis -continue antibiotics with ceftriaxone -pt now clinically stable. -repeat urine culture demonstrates no growth # ovarian ca, papillary serous , FIGO stage IIIc -pt is stable from an infection standpoint, vitals ok and she is afebrile -given her severe and aggressive disease, pt was given her 8 dose of Taxol at this time. #Leukocytosis - I believe this is likely secondary to her splenectomy as well as her active infection - continue antibiotics for UTI #Abdominal pain. Patient had US pelvis that showed 2 large likely hematomas in the uterine fossa, which extend up to the left upper quadrant and mid abdomen and measure up to 15.9 cm and 13.3 cm respectively, - Pending CT A/P with PO and IV contrast Problems: Consultation Date/Type/Reason Admit Date/Time January 02, 2017 at 03:35 Initial Consult Date 01/02/17 Type of Consultation: Oncology Referring Provider: ANGEL FORTE 24 HR Interval Summary Free Text/Dictation The patient had no complaints except for mild abdominal pain. Exam/Review of Systems Vital Signs Vitals Vital Signs Date Time Temp Pulse Resp B/P Pulse Ox O2 Delivery O2 Flow Rate FiO2 01/05/17 07:00 98.7 74 18 118/62 99 01/04/17 02:30 Room Air Intake and Output 01/04/17 01/04/17 01/05/17 15:00 23:00 07:00 Intake Total 500 ml 980 ml 600 ml Output Total 700 ml Balance 500 ml 280 ml 600 ml Exam Constitutional: alert, oriented Psych: nl mood/affect, no complaints Head: normocephalic Eyes: nl conjunctiva ENMT: nl external ears & nose Neck: non-tender, supple Respiratory: clear to auscultation, normal air movement Cardiovascular: regular rate and rhythm Gastrointestinal: soft Musculoskeletal: nl extremities to inspection Results Result Diagram: 01/04/17 0430 01/04/17 0430 Medications Medications Current Medications Sodium Chloride (NS) 1,000 ml @ 50 mls/hr Q20H IV Last administered on 08:20; Admin Dose 50 MLS/HR; Start 01/02/17 at 06:35 Lorazepam (Ativan) 0.5 mg Q6H PRN IV ANXIETY; Start 01/02/17 at 07:00 Ondansetron HCl (Zofran Inj) 4 mg Q6H PRN IV NAUSEA AND/OR VOMITING Last administered on 01/05/17 08:46; Admin Dose 4 MG; Start 01/02/17 at 07:00 Acetaminophen (Tylenol Tab) 650 mg Q6H PRN PO PAIN LEVEL 1-3 OR FEVER; Start at 07:00 Docusate Sodium (Colace) 100 mg Q12H PRN PO CONSTIPATION; Start 01/02/17 at 07: 00 Bisacodyl (Dulcolax) 5 mg DAILY PRN PO CONSTIPATION Last administered on 05:59; Admin Dose 5 MG; Start 01/02/17 at 07:00 Pantoprazole (Protonix Iv) 40 mg DAILY@06 IV Last administered on 01/05/17 05: 59; Admin Dose 40 MG; Start 01/02/17 at 07:00 Enoxaparin Sodium 40 mg 40 mg DAILY SC Last administered on 01/05/17 11:07; Admin Dose 40 MG; Start 01/02/17 at 09:00 Ceftriaxone Sodium (Rocephin) 50 ml @ 100 mls/hr Q24H IVPB Last administered on 01/05/17 06:49; Admin Dose 100 MLS/HR; Start 01/02/17 at 07:00 Acetaminophen/ Hydrocodone Bitart 1 tab 1 tab Q6H PRN PO PAIN Last administered on 01/04/17 17:35; Admin Dose 1 TAB; Start 01/02/17 at 15:30 Sodium Chloride (NS) 1,000 ml @ 100 mls/hr Q10H IV Last administered on 08:17; Admin Dose 100 MLS/HR; Start 01/03/17 at 18:00 Diphenhydramine HCl (Benadryl) 25 mg Q4H PRN IV ALLERGIC REACTION; Start at 18:00 Methylprednisolone Sodium Succinate 60 mg 60 mg Q4H PRN IV ALLERGIC REACTION; Start 01/03/17 at 18:00 Ondansetron HCl/ Sodium Chloride (Zofran Inj/NS) 54 ml @ 216 mls/hr Q8H PRN IV NAUSEA AND/OR VOMITING; Start 01/03/17 at 18:00 Phenazopyridine HCl (Pyridium) 200 mg Q8 PO ; Start 01/03/17 at 22:00; Stop 01/05 at 21:59 MARK PEDROZA MD Jan 05, 2017 14:22
--- NOTE | 2017-01-05 16:36 | CONS ---
Date/Time of Note Date/Time of Note DATE: 01/05/17 TIME: 16:35 Consultation Date/Type/Reason Admit Date/Time January 02, 2017 at 03:35 Hx of Present Illness Kenan Martínez M.D. 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 BOGDAN shows pelvic collections and CA-125 180 (580 8 wksago). Medical history/ROS: all other systems unremarkable. Surgical history: priCRS Medications: reviewed gardisil Colonoscopy Allergies: No active allergies recorded Family history: unremarkable. Social history: no identified high-risk categories. Review of Systems: Negative except for above noted Physical Examination General: Alert. HEENT: Pupils are equal, round, reactive to light and accommodation. Neck: Supple with no masses of lymphadenopathy. Breast: Deferred due to recent examination and responsibility of primary care physician. Chest: Clear to auscultation and percussion with no rales, rhonchi, or wheeze. Heart: Normal rhythm with no murmur. Abdominal Exam: normal, soft, distended with a suggetion of some ascites vs other collection lower abdomen, mildly tender with no rebound, nl bowel sounds. Pelvic exam: deferred Rectal: deferred. Neurological: Grossly intact Ext: NT mild edema Assessment: 1-Uncertain whether really septic. Lactic acid was minimally elevated, WBC may have been elevated due to concentraton from needing fluids reflected by H/H and splenectomy, and always afebrile. 2- Uncertain what collections are in abdomen/pelvis. Not urine or creat would be elevated. Very unlikely GI contents orwould be more painful and persistent elevated WBC. Unlikely hematoma of would have lower H/H. a) likely either lymphoceles or loculted ascites, possibly due to disease progression as it was not there 3 wk ago. Plan: Agree CT and drain collections (and culture and cytology, although false -common) Kenan Martínez M.D. Constitutional: other (weak), poor po Eyes: no complaints ENT: no complaints Respiratory: no complaints Cardiovascular: lightheadedness, no complaints Gastrointestinal: constipation Genitourinary: no complaints Musculoskeletal: bone/joint pain Psychological: nl mood/affect, no complaints Social History Alcohol Use: none Smoking Status: Never smoker Drug Use: none Exam/Review of Systems Vital Signs Vitals Vital Signs Date Time Temp Pulse Resp B/P Pulse Ox O2 Delivery O2 Flow Rate FiO2 01/05/17 07:00 98.7 74 18 118/62 99 01/04/17 02:30 Room Air Intake and Output 01/04/17 01/04/17 01/05/17 15:00 23:00 07:00 Intake Total 500 ml 980 ml 600 ml Output Total 700 ml Balance 500 ml 280 ml 600 ml Results Result Diagram: 01/04/17 0430 01/04/17 0430 Medications Medications Current Medications Sodium Chloride (NS) 1,000 ml @ 50 mls/hr Q20H IV Last administered on 08:20; Admin Dose 50 MLS/HR; Start 01/02/17 at 06:35 Lorazepam (Ativan) 0.5 mg Q6H PRN IV ANXIETY; Start 01/02/17 at 07:00 Ondansetron HCl (Zofran Inj) 4 mg Q6H PRN IV NAUSEA AND/OR VOMITING Last administered on 01/05/17 08:46; Admin Dose 4 MG; Start 01/02/17 at 07:00 Acetaminophen (Tylenol Tab) 650 mg Q6H PRN PO PAIN LEVEL 1-3 OR FEVER; Start at 07:00 Docusate Sodium (Colace) 100 mg Q12H PRN PO CONSTIPATION; Start 01/02/17 at 07: 00 Bisacodyl (Dulcolax) 5 mg DAILY PRN PO CONSTIPATION Last administered on 05:59; Admin Dose 5 MG; Start 01/02/17 at 07:00 Pantoprazole (Protonix Iv) 40 mg DAILY@06 IV Last administered on 01/05/17 05: 59; Admin Dose 40 MG; Start 01/02/17 at 07:00 Enoxaparin Sodium 40 mg 40 mg DAILY SC Last administered on 01/05/17 11:07; Admin Dose 40 MG; Start 01/02/17 at 09:00 Ceftriaxone Sodium (Rocephin) 50 ml @ 100 mls/hr Q24H IVPB Last administered on 01/05/17 06:49; Admin Dose 100 MLS/HR; Start 01/02/17 at 07:00 Acetaminophen/ Hydrocodone Bitart 1 tab 1 tab Q6H PRN PO PAIN Last administered on 01/04/17 17:35; Admin Dose 1 TAB; Start 01/02/17 at 15:30 Sodium Chloride (NS) 1,000 ml @ 100 mls/hr Q10H IV Last administered on 08:17; Admin Dose 100 MLS/HR; Start 01/03/17 at 18:00 Diphenhydramine HCl (Benadryl) 25 mg Q4H PRN IV ALLERGIC REACTION; Start at 18:00 Methylprednisolone Sodium Succinate 60 mg 60 mg Q4H PRN IV ALLERGIC REACTION; Start 01/03/17 at 18:00 Ondansetron HCl/ Sodium Chloride (Zofran Inj/NS) 54 ml @ 216 mls/hr Q8H PRN IV NAUSEA AND/OR VOMITING; Start 01/03/17 at 18:00 Phenazopyridine HCl (Pyridium) 200 mg Q8 PO ; Start 01/03/17 at 22:00; Stop 01/05 at 21:59 KENAN MARTÍNEZ MD Jan 05, 2017 16:36
[2017-01-05] MEDS: HYDROCODONE/APAP (10/325) TAB PO PRN (16:52)
[2017-01-05] MEDS ORDERED: LORAZEPAM 0.5 MG TAB PO PRN (17:30)
[2017-01-05 19:00] VITALS: BP 145/79; RESP 18
[2017-01-05] MEDS ORDERED: IOHEXOL 300MG/ML 150 ML BTL ONE (20:49)
[2017-01-05] MEDS ORDERED: SOD CHLORIDE 0.9% 100 ML ONE (20:49)
[2017-01-05] MEDS ORDERED: IOHEXOL 350MG/ML 50 ML BTL ONE (21:13)
[2017-01-05] MEDS ORDERED: IOHEXOL 100 ML ONE (21:13)
[2017-01-06] MEDS: ALBUTEROL 18 GM INHALER INH SCH ×4 (01:42→22:27)
[2017-01-06] MEDS: SOD CHLORIDE 0.9% 1,000 ML IV SCH ×2 (06:00→06:03)
[2017-01-06] MEDS: PANTOPRAZOLE 40 MG INJ IV SCH (06:03)
[2017-01-06] MEDS: CEFTRIAXONE 1 GM/50 ML (PMX) 50 ML IVPB SCH (06:44)
[2017-01-06 09:24] VITALS: BP 121/64; RESP 18
[2017-01-06] MEDS: ENOXAPARIN 40 MG/0.4 ML SYG SC SCH (09:50)
[2017-01-06] MEDS: HYDROCODONE/APAP (10/325) TAB PO PRN ×2 (15:14→22:27)
--- NOTE | 2017-01-06 15:47 | PN ---
Date/Time of Note Date/Time of Note DATE: 01/06/17 TIME: 15:45 Assessment/Plan VTE Prophylaxis VTE Prophylaxis Intervention: LMWH Lines/Catheters IV Catheter Type (from Nrs): PERMA CATH Urinary Cath still in place: Yes Reason Cath still needed: other (indicate) (pelvic ) Assessment/Plan Assessment/Plan 1. Severe sepsis possibley due to UTI 2. Syncopal episode 2/2 moderate to severe dehydration 3. Moderate to severe dehydration 4. UTI with URine cx growing three different organisms 5. Metastatic ovarian cancer s/p recent chemo last week 6. Anemia of chronic disease 7. Hypertension 8. H/o Spleenectomy Plan: Continue IV abx ceftriaxone for UTI, Urine cx grew three different organisms, liklye contaminant , repeat Urine cx pending X ray pelvis negative for fracture/dislocation, US pelvis showed intrauterine hematoma- will order CT angiogram to follow up on that Oncology has been following IVF NS at 50 cc/hr Electrolytes replacement as needed saw pt yesterday Lovenox for GI prophylaxis protonix for GI prophylaxis Subjective 24 Hr Interval Summary Free Text/Dictation pt had a CT angigoram done today, BP stable,a febrile Exam/Review of Systems Vital Signs Vitals Vital Signs Date Time Temp Pulse Resp B/P Pulse Ox O2 Delivery O2 Flow Rate FiO2 01/06/17 09:24 98.4 81 18 121/64 98 01/04/17 02:30 Room Air Intake and Output 01/05/17 01/05/17 01/06/17 15:00 23:00 07:00 Intake Total 590 ml 1480 ml 1550 ml Output Total 1080 ml 1000 ml Balance 590 ml 400 ml 550 ml Exam Constitutional: alert Psych: no complaints Head: normocephalic ENMT: nl external ears & nose Neck: supple Respiratory: clear to auscultation, diminished breath sounds Cardiovascular: nl pulses, regular rate and rhythm Gastrointestinal: non-tender, soft, TTP in lower abdomen Musculoskeletal: nl extremities to inspection Extremities: normal pulses Neurological: STAMPING DIE MAKER II-XII intact Results Result Diagram: 01/04/17 0430 01/04/17 043 Medications Medications Current Medications Sodium Chloride (NS) 1,000 ml @ 50 mls/hr Q20H IV Last administered on t 06:03; Admin Dose 50 MLS/HR; Start 01/02/17 at 06:35 Ondansetron HCl (Zofran Inj) 4 mg Q6H PRN IV NAUSEA AND/OR VOMITING Last administered on 01/05/17 08:46; Admin Dose 4 MG; Start 01/02/17 at 07:00 Acetaminophen (Tylenol Tab) 650 mg Q6H PRN PO PAIN LEVEL 1-3 OR FEVER; Start at 07:00 Docusate Sodium (Colace) 100 mg Q12H PRN PO CONSTIPATION; Start 01/02/17 at 07: 00 Bisacodyl (Dulcolax) 5 mg DAILY PRN PO CONSTIPATION Last administered on 05:59; Admin Dose 5 MG; Start 01/02/17 at 07:00 Pantoprazole (Protonix Iv) 40 mg DAILY@06 IV Last administered on 01/06/17 06: 03; Admin Dose 40 MG; Start 01/02/17 at 07:00 Enoxaparin Sodium 40 mg 40 mg DAILY SC Last administered on 01/06/17 09:50; Admin Dose 40 MG; Start 01/02/17 at 09:00 Ceftriaxone Sodium (Rocephin) 50 ml @ 100 mls/hr Q24H IVPB Last administered on 01/06/17 06:44; Admin Dose 100 MLS/HR; Start 01/02/17 at 07:00 Acetaminophen/ Hydrocodone Bitart ([place] (10/325)) 1 tab Q6H PRN PO PAIN Last administered on 01/06/17 15:14; Admin Dose 1 TAB; Start 01/02/17 at 15:30 Diphenhydramine HCl 25 mg 25 mg Q4H PRN IV ALLERGIC REACTION; Start 01/03/17 at 18:00 Ondansetron HCl/ Sodium Chloride (Zofran Inj/NS) 54 ml @ 216 mls/hr Q8H PRN IV NAUSEA AND/OR VOMITING; Start 01/03/17 at 18:00 Lorazepam (Ativan) 0.5 mg Q6H PRN PO ANXIETY; Start 01/05/17 at 17:30 LORI SANCHEZ MD Jan 06, 2017 15:47
[2017-01-06 19:00] VITALS: BP 114/71; RESP 19
--- NOTE | 2017-01-06 21:36 | PN ---
Date/Time of Note Date/Time of Note DATE: 01/06/17 TIME: 21:30 Assessment/Plan VTE Prophylaxis VTE Prophylaxis Intervention: LMWH Lines/Catheters IV C[facility]ter Type (from [facility] PERMA CATH Urinary Cath still in place: Yes Reason Cath still needed: urinary retention Assessment/Plan Chief Complaint/Hosp Course 1-Uncertain whether really septic. Lactic acid was minimally elevated, WBC may have been elevated due to concentraton from needing fluids reflected by H/H and splenectomy, and always afebrile. 2- Uncertain what collections are in abdomen/pelvis. Not urine or creat would be elevated. Very unlikely GI contents orwould be more painful and persistent elevated WBC. Unlikely hematoma of would have lower H/H. a) likely either lymphoceles or loculted ascites, possibly due to disease progression as it was not there 3 wk ago. Kenan Martínez M.D. Problems: Assessment/Plan A- improved but results of CT still pending, doubt hematoma as hct was 39 due to dehydration on admission and large hematomas would have been associated with lower H/H P- unless obvious bleeding on CT ocnsider drainage. Yarbrough placed because residual of > 600 ml post void likely caused UTI Subjective 24 Hr Interval Summary Free Text/Dictation Feels better with less pain and more coherent Exam/Review of Systems Vital Signs Vitals Vital Signs Date Time Temp Pulse Resp B/P Pulse Ox O2 Delivery O2 Flow Rate FiO2 01/06/17 19:00 98.7 89 19 114/71 97 01/04/17 02:30 Room Air Intake and Output 01/05/17 01/05/17 01/06/17 15:00 23:00 07:00 Intake Total 590 ml 1480 ml 1550 ml Output Total 1080 ml 1000 ml Balance 590 ml 400 ml 550 ml Exam Resp- Clear CVS- NSR Abd- Soft NT Ext- nt no edema Results Result Diagram: 01/04/17 0430 01/04/17 0430 Medications Medications Current Medications Sodium Chloride (NS) 1,000 ml @ 50 mls/hr Q20H IV Last administered on 06:03; Admin Dose 50 MLS/HR; Start 01/02/17 at 06:35 Ondansetron HCl (Zofran Inj) 4 mg Q6H PRN IV NAUSEA AND/OR VOMITING Last administered on 01/05/17 08:46; Admin Dose 4 MG; Start 01/02/17 at 07:00 Acetaminophen (Tylenol Tab) 650 mg Q6H PRN PO PAIN LEVEL 1-3 OR FEVER; Start at 07:00 Docusate Sodium (Colace) 100 mg Q12H PRN PO CONSTIPATION; Start 01/02/17 at 07: 00 Bisacodyl (Dulcolax) 5 mg DAILY PRN PO CONSTIPATION Last administered on 05:59; Admin Dose 5 MG; Start 01/02/17 at 07:00 Pantoprazole (Protonix Iv) 40 mg DAILY@06 IV Last administered on 01/06/17 06: 03; Admin Dose 40 MG; Start 01/02/17 at 07:00 Enoxaparin Sodium 40 mg 40 mg DAILY SC Last administered on 01/06/17 09:50; Admin Dose 40 MG; Start 01/02/17 at 09:00 Ceftriaxone Sodium (Rocephin) 50 ml @ 100 mls/hr Q24H IVPB Last administered on 01/06/17 06:44; Admin Dose 100 MLS/HR; Start 01/02/17 at 07:00 Acetaminophen/ Hydrocodone Bitart ([place] (10/325)) 1 tab Q6H PRN PO PAIN Last administered on 01/06/17 15:14; Admin Dose 1 TAB; Start 01/02/17 at 15:30 Diphenhydramine HCl 25 mg 25 mg Q4H PRN IV ALLERGIC REACTION; Start 01/03/17 at 18:00 Ondansetron HCl/ Sodium Chloride (Zofran Inj/NS) 54 ml @ 216 mls/hr Q8H PRN IV NAUSEA AND/OR VOMITING; Start 01/03/17 at 18:00 Lorazepam (Ativan) 0.5 mg Q6H PRN PO ANXIETY; Start 01/05/17 at 17:30 KENAN MARTÍNEZ MD Jan 06, 2017 21:36
[2017-01-07] MEDS: ALBUTEROL 18 GM INHALER INH SCH ×4 (02:00→20:05)
[2017-01-07] MEDS: SOD CHLORIDE 0.9% 1,000 ML IV SCH (02:51)
[2017-01-07] MEDS: PANTOPRAZOLE 40 MG INJ IV SCH (06:35)
[2017-01-07] MEDS: CEFTRIAXONE 1 GM/50 ML (PMX) 50 ML IVPB SCH (06:35)
[2017-01-07 07:54] VITALS: BP 116/98; RESP 19
[2017-01-07] MEDS: ENOXAPARIN 40 MG/0.4 ML SYG SC SCH (09:12)
[2017-01-07] MEDS: HYDROCODONE/APAP (10/325) TAB PO PRN ×2 (12:53→20:13)
--- NOTE | 2017-01-07 13:06 | CONS ---
Date/Time of Note Date/Time of Note DATE: 01/07/17 TIME: 13:05 Assessment/Plan Assessment/Plan Chief Complaint/Hosp Course 56 yo female with malignant ascites who has since been diagnosed with FIGO stage III ovarian cancer. Patient now presents 4 days after chemotherapy with carboplatin and taxol s/p syncopal event. Brain CT was negative. Pt now has lactic acidosis secondary to urosepsis. #urosepsis -continue antibiotics with ceftriaxone -pt now clinically stable. -repeat urine culture demonstrates no growth # ovarian ca, papillary serous , FIGO stage IIIc -pt is stable from an infection standpoint, vitals ok and she is afebrile -given her severe and aggressive disease, pt was given her 8 dose of Taxol at this time. #Leukocytosis - I believe this is likely secondary to her splenectomy as well as her active infection - continue antibiotics for UTI #Abdominal pain. Patient had US pelvis that showed 2 large likely hematomas in the uterine fossa, which extend up to the left upper quadrant and mid abdomen and measure up to 15.9 cm and 13.3 cm respectively, -Pending CT A/P with PO and IV contrast read. -Per Dr. Pierce, results of CT still pending, doubt hematoma as hct was 39 due to dehydration on admission and large hematomas would have been associated with lower H/H Problems: Consultation Date/Type/Reason Admit Date/Time January 02, 2017 at 03:35 Initial Consult Date 01/02/17 Type of Consultation: Oncology Referring Provider: ANGEL FORTE 24 HR Interval Summary Free Text/Dictation Patient doing well, no complaints. Exam/Review of Systems Vital Signs Vitals Vital Signs Date Time Temp Pulse Resp B/P Pulse Ox O2 Delivery O2 Flow Rate FiO2 01/07/17 07:54 98.0 86 19 116/98 98 01/04/17 02:30 Room Air Intake and Output 01/06/17 01/06/17 01/07/17 15:00 23:00 07:00 Intake Total 50 ml 1250 ml 1100 ml Output Total 1200 ml 800 ml Balance 50 ml 50 ml 300 ml Exam Constitutional: alert, oriented Psych: nl mood/affect, no complaints Head: normocephalic Eyes: nl conjunctiva ENMT: nl external ears & nose Neck: non-tender, supple Respiratory: clear to auscultation, normal air movement Cardiovascular: regular rate and rhythm Gastrointestinal: soft Musculoskeletal: nl extremities to inspection Results Result Diagram: 01/04/17 0430 01/04/17 0430 Medications Medications Current Medications Sodium Chloride (NS) 1,000 ml @ 50 mls/hr Q20H IV Last administered on 02:51; Admin Dose 50 MLS/HR; Start 01/02/17 at 06:35 Ondansetron HCl (Zofran Inj) 4 mg Q6H PRN IV NAUSEA AND/OR VOMITING Last administered on 01/05/17 08:46; Admin Dose 4 MG; Start 01/02/17 at 07:00 Acetaminophen (Tylenol Tab) 650 mg Q6H PRN PO PAIN LEVEL 1-3 OR FEVER; Start at 07:00 Docusate Sodium (Colace) 100 mg Q12H PRN PO CONSTIPATION; Start 01/02/17 at 07: 00 Bisacodyl (Dulcolax) 5 mg DAILY PRN PO CONSTIPATION Last administered on 05:59; Admin Dose 5 MG; Start 01/02/17 at 07:00 Pantoprazole (Protonix Iv) 40 mg DAILY@06 IV Last administered on 01/07/17 06: 35; Admin Dose 40 MG; Start 01/02/17 at 07:00 Enoxaparin Sodium 40 mg 40 mg DAILY SC Last administered on 01/07/17 09:12; Admin Dose 40 MG; Start 01/02/17 at 09:00 Ceftriaxone Sodium (Rocephin) 50 ml @ 100 mls/hr Q24H IVPB Last administered on 01/07/17 06:35; Admin Dose 100 MLS/HR; Start 01/02/17 at 07:00 Acetaminophen/ Hydrocodone Bitart ([place] (10/325)) 1 tab Q6H PRN PO PAIN Last administered on 01/07/17 12:53; Admin Dose 1 TAB; Start 01/02/17 at 15:30 Diphenhydramine HCl 25 mg 25 mg Q4H PRN IV ALLERGIC REACTION; Start 01/03/17 at 18:00 Ondansetron HCl/ Sodium Chloride (Zofran Inj/NS) 54 ml @ 216 mls/hr Q8H PRN IV NAUSEA AND/OR VOMITING; Start 01/03/17 at 18:00 Lorazepam (Ativan) 0.5 mg Q6H PRN PO ANXIETY; Start 01/05/17 at 17:30 TOMARK MD Jan 07, 2017 13:06
--- NOTE | 2017-01-07 14:53 | PN ---
Date/Time of Note Date/Time of Note DATE: 01/07/17 TIME: 14:49 Assessment/Plan VTE Prophylaxis VTE Prophylaxis Intervention: LMWH Lines/Catheters IV Catheter Type (from Nrs): Central Line Central line still needed: Yes (chmeotherapy access ) Urinary Cath still in place: Yes Reason Cath still needed: urinary retention (plan is to d/c tomorrow ) Assessment/Plan Assessment/Plan 1. Severe sepsis possibley due to UTI 2. Syncopal episode 2/2 moderate to severe dehydration 3. Moderate to severe dehydration 4. UTI with URine cx growing three different organisms 5. Metastatic ovarian cancer s/p recent chemo last week 6. Anemia of chronic disease 7. Hypertension 8. H/o Spleenectomy Plan: Continue IV abx ceftriaxone for UTI, Urine cx grew three different organisms, liklye contaminant , X ray pelvis negative for fracture/dislocation, US pelvis showed intrauterine hematoma- CT angiogram done, no result available Oncology has been following d/c IVF NS Electrolytes replacement as needed saw pt yesterday -will wait for her angiogram result and Discussed with oncolgoy and cash applications clerk about Plan for discharge, anticipate d/c in 1-2 days Lovenox for GI prophylaxis protonix for GI prophylaxis Subjective 24 Hr Interval Summary Free Text/Dictation s/p CT angiogram, no result available yet, BP stable Exam/Review of Systems Vital Signs Vitals Vital Signs Date Time Temp Pulse Resp B/P Pulse Ox O2 Delivery O2 Flow Rate FiO2 01/07/17 07:54 98.0 86 19 116/98 98 01/04/17 02:30 Room Air Intake and Output 01/06/17 01/06/17 01/07/17 15:00 23:00 07:00 Intake Total 50 ml 1250 ml 1100 ml Output Total 1200 ml 800 ml Balance 50 ml 50 ml 300 ml Exam Constitutional: alert Respiratory: clear to auscultation, diminished breath sounds Cardiovascular: nl pulses, regular rate and rhythm Gastrointestinal: non-tender, soft, TTP in lower abdomen Musculoskeletal: nl extremities to inspection Extremities: normal pulses Neurological: STAMP ANALYST II-XII intact Results Result Diagram: 01/04/17 04301/04/17 043 Medications Medications Current Medications Sodium Chloride (NS) 1,000 ml @ 50 mls/hr Q20H IV Last administered on t 02:51; Admin Dose 50 MLS/HR; Start 01/02/17 at 06:35 Ondansetron HCl (Zofran Inj) 4 mg Q6H PRN IV NAUSEA AND/OR VOMITING Last administered on 01/05/17 08:46; Admin Dose 4 MG; Start 01/02/17 at 07:00 Acetaminophen (Tylenol Tab) 650 mg Q6H PRN PO PAIN LEVEL 1-3 OR FEVER; Start at 07:00 Docusate Sodium (Colace) 100 mg Q12H PRN PO CONSTIPATION; Start 01/02/17 at 07: 00 Bisacodyl (Dulcolax) 5 mg DAILY PRN PO CONSTIPATION Last administered on 05:59; Admin Dose 5 MG; Start 01/02/17 at 07:00 Pantoprazole (Protonix Iv) 40 mg DAILY@06 IV Last administered on 01/07/17 06: 35; Admin Dose 40 MG; Start 01/02/17 at 07:00 Enoxaparin Sodium 40 mg 40 mg DAILY SC Last administered on 01/07/17 09:12; Admin Dose 40 MG; Start 01/02/17 at 09:00 Ceftriaxone Sodium (Rocephin) 50 ml @ 100 mls/hr Q24H IVPB Last administered on 01/07/17 06:35; Admin Dose 100 MLS/HR; Start 01/02/17 at 07:00 Acetaminophen/ Hydrocodone Bitart ([place] (10/325)) 1 tab Q6H PRN PO PAIN Last administered on 01/07/17 12:53; Admin Dose 1 TAB; Start 01/02/17 at 15:30 Diphenhydramine HCl 25 mg 25 mg Q4H PRN IV ALLERGIC REACTION; Start 01/03/17 at 18:00 Ondansetron HCl/ Sodium Chloride (Zofran Inj/NS) 54 ml @ 216 mls/hr Q8H PRN IV NAUSEA AND/OR VOMITING; Start 01/03/17 at 18:00 Lorazepam (Ativan) 0.5 mg Q6H PRN PO ANXIETY; Start 01/05/17 at 17:30 LORI SANCHEZ MD Jan 07, 2017 14:53
--- NOTE | 2017-01-07 17:08 | RADRPT ---
PROCEDURE: CT angiogram abdomen and pelvis CLINICAL INDICATION: Abdominal and pelvic pain. History of hysterectomy and bilateral oophorectomy . Abnormal pelvic ultrasound showing pelvic hematoma is TECHNIQUE: CT angiogram runoff of the abdomen and pelvis from the diaphragm to the proximal femora l is performed following the uneventful intravenous injection of 120 cc Omnipaque 350. Oral contrast media was utilized. The exam is reconstructed at 2.5 mm intervals with coronal and sagittal reforma tted images also submitted to the PACS for review. CTDI = 37.69 mGy; DLP = 1239.51 mGy-cm COMPARISON: Pelvic ultrasound 01/04/1979. CT abdomen and pelvis 11/13/2016 FINDINGS: ARTERIAL FINDINGS: Abdominal aorta: Proximal segment: Normal in caliber measuring and 2.2 x 2.0 cm with moderate atheromatous disease b ut no evidence of stenosis. Celiac and superior mesenteric axes demonstrate moderate atheromatous d isease without evidence of occlusion or high-grade stenosis. Renal segment: Mild atheromatous disease causing a moderate degree of right-sided proximal renal ar leslie stenosis and mild left renal artery stenosis. There is no aneurysm, the maximal dimension 1.5 x 1.5 cm. Mild atheromatous disease is present. Infrarenal segment: Mild to moderate atheromatous calcification without aneurysm, the maximal dimen rakesh 1.1 x 1.1 cm. The inferior mesenteric arteries unremarkable. Iliac systems: Common iliac arteries: Mild to moderate atherosclerotic calcification is present bilaterally withou t evidence of contrast extravasation or occlusion. External and internal iliac arteries: Mild atheromatous disease is present bilaterally but there is no evidence of contrast extravasation to correlate with the ultrasound abnormalities. There is no e vidence of contrast extravasation from the internal iliac systems to suggest active bleeding Hepatobiliary system: Cholecystectomy changes are again note. The liver is unremarkable for mass l esion. There is no common bile duct dilatation, the pancreas is unremarkable. The spleen is surgic ally absent, in the left upper quadrant is a stable hypodense fluid collection possibly a seroma or area of peritoneal metastasis the finding estimated at 3.3 x 4.7 cm (series 2 image 36). Genitourinary system: The generalize are unremarkable. There is mild bilateral, right greater than left, renal pelvic dilatation without significant dilatation of the calyces. Symmetric enhanced of the renal parenchyma is present. Mild right hydroureter is present the left ureter is unremarkable . The urinary bladder is within limits of normal. The uterus is surgically absent. The coronal ref ormatted images demonstrate the ultrasound findings to be a contiguous collection having a somewhat reniform shape with smooth margins and central low attenuation of 15 HU, the finding likely a postop erative seroma have an aggregate dimension of 19 x 18 cm in cranial caudal and transverse dimensions respectively extending from the right upper abdomen through a 4.4 cm transverse dimension connectio n in the left lower quadrant into the larger central pelvic component. Differential diagnostic poss ibilities include a postoperative hematoma, seroma, lymphocele and loculated ascites. Gastrointestinal system: Enteric contrast media is within the stomach and small bowel and has reach ed the proximal colon without ileus or obstruction. A moderate amount of fecal debris in the colon is concerning for constipation but there is no evidence of colitis. Musculoskeletal system: Postoperative changes in the intra-abdominal wall are present. There is no evidence of acute osseous abnormality, lytic or blastic lesion IMPRESSION: 1. Atherosclerotic calcification of the aorta and iliac systems without evidence of contrast extrava sation to suggest active bleeding into the abnormalities described on the pelvic ultrasound of 01/04. 2. Reniform shaped circumscribed hypodense collection extending from the right central abdomen into the pelvis correlate with the ultrasound findings and are contiguous with differential diagnostic po ssibilities including postoperative seroma, hematoma, lymphocele and loculated ascites. Consider in terventional radiology consultation for therapeutic percutaneous drainage. 3. Changes of hysterectomy and bilateral salpingo-oophorectomy correlate with the provided history. 4. Mild constipation pattern without small bowel obstruction or ileus. 5. Mild prominence of the right greater than left renal pelves related to extrinsic impression upon the ureters by the intraperitoneal collection. 6. Changes of prior cholecystectomy. Physician June Date Time Electronically viewed and signed by Physician June on 01/07/2017 17:08 /
[2017-01-07 19:26] VITALS: BP 115/71; RESP 16
[2017-01-08] MEDS: BISACODYL (EC) 5 MG TAB PO PRN (00:52)
[2017-01-08] MEDS: ALBUTEROL 18 GM INHALER INH SCH ×3 (01:35→14:00)
[2017-01-08 05:40] LABS: ADD SCAN DIFF NO
[2017-01-08 05:53] LABS: BASOPHILS % 0.2 % (0.0-2.0); EOSINOPHILS % 0.6 % (0.0-7.0); HEMOGLOBIN 9.7 g/dl (12.0-16.0); LYMPHOCYTES % 37.3 % (15.0-51.0); MEAN CORPUSCULAR HEMOGLOBIN 29.8 pg (29.0-33.0); MEAN CORPUSCULAR HGB CONC 33.4 g/dl (32.0-37.0); MEAN CORPUSCULAR VOLUME 89.2 fl (82.0-101.0); MEAN PLATELET VOLUME 9.9 fl (7.4-10.4); MONOCYTE # 0.1 10^3/ul (0.3-0.9); MONOCYTES % 1.8 % (0.0-11.0); NEUTROPHIL # 3.2 10^3/ul (1.6-7.5); NEUTROPHILS % 59.9 % (39.0-77.0); PLATELET COUNT 193 10^3/UL (140-415); RED BLOOD COUNT 3.25 10^6/ul (4.20-5.40); RED CELL DISTRIBUTION WIDTH 17.4 % (11.5-14.5); WHITE BLOOD COUNT 5.4 10^3/ul (4.8-10.8)
[2017-01-08 06:12] LABS: ALBUMIN 3.4 g/dl (3.3-4.9); ALBUMIN/GLOBULIN RATIO 0.97; BILIRUBIN,INDIRECT 0.2 mg/dl (0-1.1); BILIRUBIN,TOTAL 0.2 mg/dl (0.2-1.3); CALCIUM 8.9 mg/dl (8.4-10.2); CREATININE 0.41 mg/dl (0.44-1.00); POTASSIUM 3.7 mmol/L (3.5-5.1); TOTAL PROTEIN 6.9 g/dl (6.1-8.1)
[2017-01-08] MEDS: PANTOPRAZOLE 40 MG INJ IV SCH (06:28)
[2017-01-08] MEDS: CEFTRIAXONE 1 GM/50 ML (PMX) 50 ML IVPB SCH (06:31)
[2017-01-08 06:37] LABS: INR 1.1; PROTIME 14.2 Sec (12.2-14.2); PT RATIO 1.1
[2017-01-08 08:59] VITALS: BP 109/66; RESP 18
[2017-01-08] MEDS: HYDROCODONE/APAP (10/325) TAB PO PRN ×2 (09:13→22:13)
[2017-01-08] MEDS: ENOXAPARIN 40 MG/0.4 ML SYG SC SCH (09:14)
--- NOTE | 2017-01-08 10:26 | CONS ---
Date/Time of Note Date/Time of Note DATE: 01/08/17 TIME: 10:25 Assessment/Plan Assessment/Plan Chief Complaint/Hosp Course 56 yo female with malignant ascites who has since been diagnosed with FIGO stage III ovarian cancer. Patient now presents 4 days after chemotherapy with carboplatin and taxol s/p syncopal event. Brain CT was negative. Pt now has lactic acidosis secondary to urosepsis. #urosepsis -continue antibiotics with ceftriaxone -pt now clinically stable. -repeat urine culture demonstrates no growth # ovarian ca, papillary serous , FIGO stage IIIc -pt is stable from an infection standpoint, vitals ok and she is afebrile -given her severe and aggressive disease, pt was given her 8 dose of Taxol at this time. #Leukocytosis. Resolved. - I believe this is likely secondary to her splenectomy as well as her active infection - continue antibiotics for UTI #Abdominal pain. Patient had US pelvis that showed 2 large likely hematomas in the uterine fossa, which extend up to the left upper quadrant and mid abdomen and measure up to 15.9 cm and 13.3 cm respectively, -Per Dr. Pierce, results of CT still pending, doubt hematoma as hct was 39 due to dehydration on admission and large hematomas would have been associated with lower H/H -CT A/P showed 1. Atherosclerotic calcification of the aorta and iliac systems without evidence of contrast extravasation to suggest active bleeding into the abnormalities described on the pelvic ultrasound of 01/04/2017. 2. Reniform shaped circumscribed hypodense collection extending from the right central abdomen into the pelvis correlate with the ultrasound findings and are contiguous with differential diagnostic possibilities including postoperative seroma, hematoma, lymphocele and loculated ascites. Consider interventional radiology consultation for therapeutic percutaneous drainage. 3. Changes of hysterectomy and bilateral salpingo-oophorectomy correlate with the provided history. 4. Mild constipation pattern without small bowel obstruction or ileus. 5. Mild prominence of the right greater than left renal pelves related to extrinsic impression upon the ureters by the intraperitoneal collection. 6. Changes of prior cholecystectomy. 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 Exam/Review of Systems Vital Signs Vitals Vital Signs Date Time Temp Pulse Resp B/P Pulse Ox O2 Delivery O2 Flow Rate FiO2 01/08/17 08:59 98.8 96 18 109/66 96 Intake and Output 01/07/17 01/07/17 01/08/17 15:00 23:00 07:00 Intake Total 400 ml 820 ml 800 ml Output Total 1100 ml 900 ml Balance 400 ml -280 ml -100 ml Results Result Diagram: 01/08/170 01/08/17 0440 Results 24 hrs Laboratory Tests Test 01/08/17 04:40 White Blood Count 5.4 # Red Blood Count 3.25 L Hemoglobin 9.7 L Hematocrit 29.0 L Mean Corpuscular Volume 89.2 Mean Corpuscular Hemoglobin 29.8 Mean Corpuscular Hemoglobin Concent 33.4 Red Cell Distribution Width 17.4 H Platelet Count 193 # Mean Platelet Volume 9.9 Neutrophils % 59.9 Lymphocytes % 37.3 Monocytes % 1.8 Eosinophils % 0.6 Basophils % 0.2 Nucleated Red Blood Cells % 0.0 Neutrophils # 3.2 Lymphocytes # 2.0 Monocytes # 0.1 L Eosinophils # 0.0 Basophils # 0.0 Nucleated Red Blood Cells # 0.0 Prothrombin Time 14.2 Prothrombin Time Ratio 1.1 INR International Normalized Ratio 1.10 Activated Partial Thromboplast Time 28.0 Sodium Level 135 Potassium Level 3.7 Chloride Level 99 Carbon Dioxide Level 27 Anion Gap 13 Blood Urea Nitrogen 8 Creatinine 0.41 L Glucose Level 86 Calcium Level 8.9 Total Bilirubin 0.2 Direct Bilirubin 0.00 Indirect Bilirubin 0.2 Aspartate Amino Transf (AST/SGOT) 16 Alanine Aminotransferase (ALT/SGPT) 26 Alkaline Phosphatase 78 Total Protein 6.9 Albumin 3.4 Globulin 3.50 H Albumin/Globulin Ratio 0.97 Medications Medications Current Medications Ondansetron HCl (Zofran Inj) 4 mg Q6H PRN IV NAUSEA AND/OR VOMITING Last administered on 01/05/17 08:46; Admin Dose 4 MG; Start 01/02/17 at 07:00 Acetaminophen (Tylenol Tab) 650 mg Q6H PRN PO PAIN LEVEL 1-3 OR FEVER; Start at 07:00 Docusate Sodium (Colace) 100 mg Q12H PRN PO CONSTIPATION; Start 01/02/17 at 07: 00 Bisacodyl (Dulcolax) 5 mg DAILY PRN PO CONSTIPATION Last administered on 00:52; Admin Dose 5 MG; Start 01/02/17 at 07:00 Pantoprazole (Protonix Iv) 40 mg DAILY@06 IV Last administered on 01/08/17 06: 28; Admin Dose 40 MG; Start 01/02/17 at 07:00 Enoxaparin Sodium 40 mg 40 mg DAILY SC Last administered on 01/08/17 09:14; Admin Dose 40 MG; Start 01/02/17 at 09:00 Ceftriaxone Sodium (Rocephin) 50 ml @ 100 mls/hr Q24H IVPB Last administered on 01/08/17 06:31; Admin Dose 100 MLS/HR; Start 01/02/17 at 07:00 Acetaminophen/ Hydrocodone Bitart ([place] (10/325)) 1 tab Q6H PRN PO PAIN Last administered on 01/08/17 09:13; Admin Dose 1 TAB; Start 01/02/17 at 15:30 Diphenhydramine HCl 25 mg 25 mg Q4H PRN IV ALLERGIC REACTION; Start 01/03/17 at 18:00 Ondansetron HCl/ Sodium Chloride (Zofran Inj/NS) 54 ml @ 216 mls/hr Q8H PRN IV NAUSEA AND/OR VOMITING; Start 01/03/17 at 18:00 Lorazepam (Ativan) 0.5 mg Q6H PRN PO ANXIETY; Start 01/05/17 at 17:30 MARK PEDROZA MD Jan 08, 2017 10:26
--- NOTE | 2017-01-08 18:54 | PN ---
Date/Time of Note Date/Time of Note DATE: 01/08/17 TIME: 18:50 Assessment/Plan VTE Prophylaxis VTE Prophylaxis Intervention: LMWH Lines/Catheters IV Catheter Type (from Nrs): PORT-A-CATH Urinary Cath still in place: Yes Reason Cath still needed: urinary retention Assessment/Plan Chief Complaint/Hosp Course Subjective: 56-year-old female admitted and fainting episode at 11:30 PM at night when she got up to use the restroom. She had been in bed for maybe 1 or 2 hours. No witnessed seizure, stroke, blood loss. No further episodes. Started chemotherapy 1 week ago. Patient drinks 3 glasses of fluids a day. Objective: Vital signs stable Physical exam No pallor droop Regular Clear Bs +nt, mild distended? no R/R/G No edema Neuro: Nonfocal Assessment and plan 1. Syncope. Check orthostatics/EKG. Probably hypotensive related. Needs to drink more fluids and avoid rapid movements after lying down. 2. Hypovolemia 3. Metastatic ovarian malignancy stage III C. Continue therapy. Needs to maintain hydration. 4. Acute cystitis? Less than 80,000 multiple organisms 5. Urinary retention? Bladder training? 6. Anemia, no evidence of bleeding. Potentially of chronic disease 7. Chronic hypertension 8. Ascites? Lymphocele? Follow-up on imaging 9. Splenectomy status 10. Constipation Problems: Exam/Review of Systems Vital Signs Vitals Vital Signs Date Time Temp Pulse Resp B/P Pulse Ox O2 Delivery O2 Flow Rate FiO2 01/08/17 08:59 98.8 96 18 109/66 96 Intake and Output 01/07/17 01/07/17 01/08/17 15:00 23:00 07:00 Intake Total 400 ml 820 ml 800 ml Output Total 1100 ml 900 ml Balance 400 ml -280 ml -100 ml Results Result Diagram: 01/08/17 0440 01/08/17 0440 Results 24 hrs Laboratory Tests Test 01/08/17 04:40 White Blood Count 5.4 # Red Blood Count 3.25 L Hemoglobin 9.7 L Hematocrit 29.0 L Mean Corpuscular Volume 89.2 Mean Corpuscular Hemoglobin 29.8 Mean Corpuscular Hemoglobin Concent 33.4 Red Cell Distribution Width 17.4 H Platelet Count 193 # Mean Platelet Volume 9.9 Neutrophils % 59.9 Lymphocytes % 37.3 Monocytes % 1.8 Eosinophils % 0.6 Basophils % 0.2 Nucleated Red Blood Cells % 0.0 Neutrophils # 3.2 Lymphocytes # 2.0 Monocytes # 0.1 L Eosinophils # 0.0 Basophils # 0.0 Nucleated Red Blood Cells # 0.0 Prothrombin Time 14.2 Prothrombin Time Ratio 1.1 INR International Normalized Ratio 1.10 Activated Partial Thromboplast Time 28.0 Sodium Level 135 Potassium Level 3.7 Chloride Level 99 Carbon Dioxide Level 27 Anion Gap 13 Blood Urea Nitrogen 8 Creatinine 0.41 L Glucose Level 86 Calcium Level 8.9 Total Bilirubin 0.2 Direct Bilirubin 0.00 Indirect Bilirubin 0.2 Aspartate Amino Transf (AST/SGOT) 16 Alanine Aminotransferase (ALT/SGPT) 26 Alkaline Phosphatase 78 Total Protein 6.9 Albumin 3.4 Globulin 3.50 H Albumin/Globulin Ratio 0.97 Medications Medications Current Medications Ondansetron HCl (Zofran Inj) 4 mg Q6H PRN IV NAUSEA AND/OR VOMITING Last administered on 01/05/17 08:46; Admin Dose 4 MG; Start 01/02/17 at 07:00 Acetaminophen (Tylenol Tab) 650 mg Q6H PRN PO PAIN LEVEL 1-3 OR FEVER; Start at 07:00 Docusate Sodium (Colace) 100 mg Q12H PRN PO CONSTIPATION; Start 01/02/17 at 07: 00 Bisacodyl (Dulcolax) 5 mg DAILY PRN PO CONSTIPATION Last administered on 00:52; Admin Dose 5 MG; Start 01/02/17 at 07:00 Enoxaparin Sodium 40 mg 40 mg DAILY SC Last administered on 01/08/17 09:14; Admin Dose 40 MG; Start 01/02/17 at 09:00 Ceftriaxone Sodium (Rocephin) 50 ml @ 100 mls/hr Q24H IVPB Last administered on 01/08/17 06:31; Admin Dose 100 MLS/HR; Start 01/02/17 at 07:00; Stop 01/09/17 at 11:00 Acetaminophen/ Hydrocodone Bitart ([place] (10/325)) 1 tab Q6H PRN PO PAIN Last administered on 01/08/17 09:13; Admin Dose 1 TAB; Start 01/02/17 at 15:30 Diphenhydramine HCl 25 mg 25 mg Q4H PRN IV ALLERGIC REACTION; Start 01/03/17 at 18:00 Ondansetron HCl/ Sodium Chloride (Zofran Inj/NS) 54 ml @ 216 mls/hr Q8H PRN IV NAUSEA AND/OR VOMITING; Start 01/03/17 at 18:00 Lorazepam (Ativan) 0.5 mg Q6H PRN PO ANXIETY; Start 01/05/17 at 17:30 Famotidine (Pepcid) 20 mg DAILY PO ; Start 01/09/17 at 09:00 Ciprofloxacin (Cipro) 500 mg BID@06,18 PO ; Start 01/09/17 at 21:00 DEANNA ONEAL MD Jan 08, 2017 18:54
[2017-01-08] MEDS ORDERED: MAGNESIUM HYDROXIDE 30ML CUP PO ONE (19:00)
[2017-01-08] MEDS ORDERED: ALBUTEROL 18 GM INHALER INH PRN (19:00)
[2017-01-08 19:12] VITALS: BP 111/62; RESP 18
[2017-01-08 19:45] VITALS: BP 109/65; PULSE 101; RESP 20
[2017-01-08 19:47] VITALS: BP_SYST 105; BP_SYST 108; BP_DIAS 63; BP_DIAS 69; PULSE 104; PULSE 113; RESP 18
[2017-01-08] MEDS: SENNA/DOCUSATE NA (8.6MG/50MG) TAB PO SCH (20:28)
[2017-01-09] VITALS (16 sets, daily range): BP systolic 91–121; BP diastolic 54–71; PULSE 74–90; RESP 16–20
[2017-01-09 05:35] LABS: ADD SCAN DIFF NO
[2017-01-09 05:45] LABS: BASOPHILS % 0.3 % (0.0-2.0); EOSINOPHILS % 1.3 % (0.0-7.0); HEMOGLOBIN 9.3 g/dl (12.0-16.0); LYMPHOCYTES # 1.3 10^3/ul (0.8-2.9); LYMPHOCYTES % 43.1 % (15.0-51.0); MEAN CORPUSCULAR HEMOGLOBIN 30.1 pg (29.0-33.0); MEAN CORPUSCULAR HGB CONC 33.2 g/dl (32.0-37.0); MEAN CORPUSCULAR VOLUME 90.6 fl (82.0-101.0); MEAN PLATELET VOLUME 9.9 fl (7.4-10.4); MONOCYTE # 0.1 10^3/ul (0.3-0.9); NEUTROPHIL # 1.5 10^3/ul (1.6-7.5); PLATELET COUNT 162 10^3/UL (140-415); RED BLOOD COUNT 3.09 10^6/ul (4.20-5.40); RED CELL DISTRIBUTION WIDTH 17.3 % (11.5-14.5)
[2017-01-09 06:01] LABS: CALCIUM 8.7 mg/dl (8.4-10.2); CREATININE 0.44 mg/dl (0.44-1.00); MAGNESIUM 1.6 mg/dl (1.7-2.5); PHOSPHORUS 3.7 mg/dl (2.5-4.9)
[2017-01-09] MEDS: CEFTRIAXONE 1 GM/50 ML (PMX) 50 ML IVPB SCH (06:30)
[2017-01-09] MEDS: ENOXAPARIN 40 MG/0.4 ML SYG SC SCH (09:00)
[2017-01-09] MEDS: FAMOTIDINE 20 MG TAB PO SCH (09:04)
[2017-01-09] MEDS ORDERED: LIDOCAINE 1% (MDV) 20 ML INJ ONE (09:41)
[2017-01-09] MEDS ORDERED: SOD CHLORIDE 0.9% 500 ML ONE (09:42)
[2017-01-09] MEDS ORDERED: MIDAZOLAM 1 MG/ML 2 ML INJ ONE (09:42)
[2017-01-09] MEDS ORDERED: FENTAnyl 50 MCG/ML VIAL ONE (09:42)
--- NOTE | 2017-01-09 11:20 | RADRPT ---
PROCEDURE: CT guided abdominal and pelvic fluid collection drainage CLINICAL INDICATION: Large fluid collection in the abdomen and pelvis TECHNIQUE: Informed consent was obtained from the patient following care for explanation of the risks and benef its of the procedure. Versed and Fentanyl were administered by the nurse who monitored the patient. The patient was placed supine on the CT table. Multiple axial images were obtained through the patie nt's abdomen and pelvis. DLP not available CTDIvol not available One or more of the following post reduction techniques were used: - Automated exposure control. - Adjustment of the mA and/or Kv according to patient's size. - Use of iterative reconstruction technique A site in the patient's left lower pelvis was selected and marked. The area was prepped and draped in the usual sterile fashion. 1% lidocaine was utilized. A 19-gauge needle was advanced into the fl uid collection. A guidewire was advanced into the fluid collection as confirmed by CT guidance. T he introducer was advanced into the fluid collection and an Amplatz wire was coiled within the fluid collection. The introducer was exchanged over the wire for a 8.5 Bulgarian multipurpose drainage cath eter which was coiled within the fluid collection. Approximately 300 cc of clear yellow fluid were aspirated. The catheter was connected to a drainage bag and sutured to the patient's skin. A steri le dressing was applied. The specimen was sent for laboratory evaluation. Post procedure CT demonstrates no immediate complications.. The patient tolerated the procedure wel l. COMPARISON: Recent CT FINDINGS: Large abdominal and pelvic fluid collection, suspicious for a seroma. IMPRESSION: Uncomplicated CT-guided drainage of a a large abdominal and pelvic fluid collection. RPTAT: AA .Agustin Islas MD, Date Time Electronically viewed and signed by .Agustin Islas MD, MD on 01/09/2017 11:20 .S/
--- NOTE | 2017-01-09 13:40 | CONS ---
Date/Time of Note Date/Time of Note DATE: 01/09/17 TIME: 13:36 Assessment/Plan Assessment/Plan Chief Complaint/Hosp Course 56 yo female with malignant ascites who has since been diagnosed with FIGO stage III ovarian cancer. Patient now presents 4 days after chemotherapy with carboplatin and taxol s/p syncopal event. Brain CT was negative. Pt now has lactic acidosis secondary to urosepsis and was found with a large abdominal fluid collection #Loculated abdominal fluid -to get IR guided drainage #urosepsis -continue antibiotics with ceftriaxone -pt now clinically stable. -repeat urine culture demonstrates no growth # ovarian ca, papillary serous , FIGO stage IIIc -pt is stable from an infection standpoint. vitals ok and she is afebrile -given her severe and aggressive disease, pt was given her 8 dose of Taxol at this time. -will plan to give day 15 dose of Taxol tomorrow #Leukocytosis - I believe this is likely secondary to her splenectomy as well as her active infection -continue antibiotics for UTI Approximately 40 min were spent at patient's bedside and in coordination of her care Problems: Consultation Date/Type/Reason Admit Date/Time January 02, 2017 at 03:35 Initial Consult Date 01/02/17 Type of Consultation: Oncology Reason for Consultation ovarian cancer Referring Provider: ANGEL FORTE 24 HR Interval Summary Free Text/Dictation pt had a CT scan done that demonstrated a large abdominal fluid collection. currently denies abdominal pain. eating well Exam/Review of Systems Vital Signs Vitals Vital Signs Date Time Temp Pulse Resp B/P Pulse Ox O2 Delivery O2 Flow Rate FiO2 01/09/17 11:20 Nasal Cannula 2 01/09/17 11:15 80 20 92/54 98 01/09/17 10:55 98.0 Intake and Output 01/08/17 01/08/17 01/09/17 15:00 23:00 07:00 Intake Total 50 ml 980 ml 550 ml Output Total 800 ml 850 ml Balance 50 ml 180 ml -300 ml Exam Constitutional: alert, oriented Psych: no complaints Head: atraumatic, normocephalic Eyes: nl conjunctiva ENMT: nl external ears & nose Neck: non-tender, supple Respiratory: clear to auscultation Cardiovascular: nl pulses, regular rate and rhythm Gastrointestinal: soft Musculoskeletal: nl extremities to inspection Results Result Diagram: 01/09/17 0452 01/09/17 0452 Results 24 hrs Laboratory Tests Test 01/09/17 04:52 White Blood Count 3.0 #L Red Blood Count 3.09 L Hemoglobin 9.3 L Hematocrit 28.0 L Mean Corpuscular Volume 90.6 Mean Corpuscular Hemoglobin 30.1 Mean Corpuscular Hemoglobin Concent 33.2 Red Cell Distribution Width 17.3 H Platelet Count 162 Mean Platelet Volume 9.9 Neutrophils % 50.0 Lymphocytes % 43.1 Monocytes % 4.0 Eosinophils % 1.3 Basophils % 0.3 Nucleated Red Blood Cells % 0.0 Neutrophils # 1.5 L Lymphocytes # 1.3 Monocytes # 0.1 L Eosinophils # 0.0 Basophils # 0.0 Nucleated Red Blood Cells # 0.0 Sodium Level 135 Potassium Level 4.0 Chloride Level 98 Carbon Dioxide Level 31 Anion Gap 10 Blood Urea Nitrogen 9 Creatinine 0.44 Glucose Level 95 Calcium Level 8.7 Phosphorus Level 3.7 Magnesium Level 1.6 L Medications Medications Current Medications Ondansetron HCl (Zofran Inj) 4 mg Q6H PRN IV NAUSEA AND/OR VOMITING Last administered on 01/05/17 08:46; Admin Dose 4 MG; Start 01/02/17 at 07:00 Acetaminophen (Tylenol Tab) 650 mg Q6H PRN PO PAIN LEVEL 1-3 OR FEVER; Start at 07:00 Docusate Sodium (Colace) 100 mg Q12H PRN PO CONSTIPATION; Start 01/02/17 at 07: 00 Bisacodyl (Dulcolax) 5 mg DAILY PRN PO CONSTIPATION Last administered on 00:52; Admin Dose 5 MG; Start 01/02/17 at 07:00 Enoxaparin Sodium (Lovenox) 40 mg DAILY SC Last administered on 01/08/17 09:14 ; Admin Dose 40 MG; Start 01/02/17 at 09:00 Acetaminophen/ Hydrocodone Bitart ([place] (10/325)) 1 tab Q6H PRN PO PAIN Last administered on 01/08/17 22:13; Admin Dose 1 TAB; Start 01/02/17 at 15:30 Diphenhydramine HCl 25 mg 25 mg Q4H PRN IV ALLERGIC REACTION; Start 01/03/17 at 18:00 Ondansetron HCl/ Sodium Chloride (Zofran Inj/NS) 54 ml @ 216 mls/hr Q8H PRN IV NAUSEA AND/OR VOMITING; Start 01/03/17 at 18:00 Famotidine (Pepcid) 20 mg DAILY PO Last administered on 01/09/17 09:04; Admin Dose 20 MG; Start 01/09/17 at 09:00 Ciprofloxacin (Cipro) 500 mg BID@06,18 PO ; Start 01/09/17 at 21:00 Senna/Docusate Sodium (Senokot-S) 2 tab HS PO Last administered on 01/08/17 20: 28; Admin Dose 2 TAB; Start 01/08/17 at 21:00 FLORINDA COATES M.D. Jan 09, 2017 13:40
--- NOTE | 2017-01-09 14:55 | PN ---
Date/Time of Note Date/Time of Note DATE: 01/09/17 TIME: 14:52 Assessment/Plan VTE Prophylaxis VTE Prophylaxis Intervention: LMWH Lines/Catheters IV Catheter Type (from Nrs): PORT A CATH Urinary Cath still in place: Yes Reason Cath still needed: urinary retention, skin wounds contaminated by urine Assessment/Plan Chief Complaint/Hosp Course S: 56-yr F admitted and fainting episode at 11:30 PM at night when she got up to use the restroom. She had been in bed for maybe 1 or 2 hours. No witnessed seizure, stroke, blood loss. No further episodes. Started chemotherapy 1 week ago. Patient drinks 3 glasses of fluids a day. 01/09: Feels much better; sp ir drain placement-urine? O: vss Physical exam No pallor Reg Clear Bs +nt, nd; no R/R/G. drain -C/D/I No edema Neuro: Nonfocal A/P 1. Syncope. 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 - Probably hypotensive related. Needs to drink more fluids and avoid rapid movements after lying down. 2. Hypovolemia 3. Metastatic ovarian malignancy stage III C. Cont therapy. Needs to maintain hydration. 4. Acute cystitis? Less than 80,000 multiple organisms 5. Urinary retention? Bladder training? 6. Anemia, no evidence of bleeding. Potentially of chronic disease 7. Chronic hypertension 8. Ascites? Lymphocele? SP IR drain placement. Continue drain care. May need home health. 9. Splenectomy status 10. Constipation Problems: Exam/Review of Systems Vital Signs Vitals Vital Signs Date Time Temp Pulse Resp B/P Pulse Ox O2 Delivery O2 Flow Rate FiO2 01/09/17 11:20 Nasal Cannula 2 01/09/17 11:15 80 20 92/54 98 01/09/17 10:55 98.0 Intake and Output 01/08/17 01/08/17 01/09/17 15:00 23:00 07:00 Intake Total 50 ml 980 ml 550 ml Output Total 800 ml 850 ml Balance 50 ml 180 ml -300 ml Results Result Diagram: 01/09/17 0452 01/09/17 0452 Results 24 hrs Laboratory Tests Test 01/09/17 04:52 White Blood Count 3.0 #L Red Blood Count 3.09 L Hemoglobin 9.3 L Hematocrit 28.0 L Mean Corpuscular Volume 90.6 Mean Corpuscular Hemoglobin 30.1 Mean Corpuscular Hemoglobin Concent 33.2 Red Cell Distribution Width 17.3 H Platelet Count 162 Mean Platelet Volume 9.9 Neutrophils % 50.0 Lymphocytes % 43.1 Monocytes % 4.0 Eosinophils % 1.3 Basophils % 0.3 Nucleated Red Blood Cells % 0.0 Neutrophils # 1.5 L Lymphocytes # 1.3 Monocytes # 0.1 L Eosinophils # 0.0 Basophils # 0.0 Nucleated Red Blood Cells # 0.0 Sodium Level 135 Potassium Level 4.0 Chloride Level 98 Carbon Dioxide Level 31 Anion Gap 10 Blood Urea Nitrogen 9 Creatinine 0.44 Glucose Level 95 Calcium Level 8.7 Phosphorus Level 3.7 Magnesium Level 1.6 L Medications Medications Current Medications Ondansetron HCl (Zofran Inj) 4 mg Q6H PRN IV NAUSEA AND/OR VOMITING Last administered on 01/05/17 08:46; Admin Dose 4 MG; Start 01/02/17 at 07:00 Acetaminophen (Tylenol Tab) 650 mg Q6H PRN PO PAIN LEVEL 1-3 OR FEVER; Start at 07:00 Docusate Sodium (Colace) 100 mg Q12H PRN PO CONSTIPATION; Start 01/02/17 at 07: 00 Bisacodyl (Dulcolax) 5 mg DAILY PRN PO CONSTIPATION Last administered on 00:52; Admin Dose 5 MG; Start 01/02/17 at 07:00 Enoxaparin Sodium (Lovenox) 40 mg DAILY SC Last administered on 01/08/17 09:14 ; Admin Dose 40 MG; Start 01/02/17 at 09:00 Acetaminophen/ Hydrocodone Bitart ([place] (10/325)) 1 tab Q6H PRN PO PAIN Last administered on 01/08/17 22:13; Admin Dose 1 TAB; Start 01/02/17 at 15:30 Diphenhydramine HCl 25 mg 25 mg Q4H PRN IV ALLERGIC REACTION; Start 01/03/17 at 18:00 Ondansetron HCl/ Sodium Chloride (Zofran Inj/NS) 54 ml @ 216 mls/hr Q8H PRN IV NAUSEA AND/OR VOMITING; Start 01/03/17 at 18:00 Famotidine (Pepcid) 20 mg DAILY PO Last administered on 01/09/17 09:04; Admin Dose 20 MG; Start 01/09/17 at 09:00 Ciprofloxacin (Cipro) 500 mg BID@06,18 PO ; Start 01/09/17 at 21:00 Senna/Docusate Sodium 2 tab 2 tab HS PO Last administered on 01/08/17 20:28; Admin Dose 2 TAB; Start 01/08/17 at 21:00 Magnesium Sulfate (Magnesium Sulfate 2 Gm/50 ml) 50 ml @ 25 mls/hr ONCE ONCE IVPB ; Start 01/09/17 at 15:30; Stop 01/09/17 at 17:29 DEANNA ONEAL MD Jan 09, 2017 14:55
[2017-01-09] MEDS ORDERED: MAGNESIUM SULFATE 2 GM/50 ML 50 ML IVPB ONE (15:30)
[2017-01-09] MEDS: BISACODYL (EC) 5 MG TAB PO PRN (18:17)
--- NOTE | 2017-01-09 19:11 | PN ---
Date/Time of Note Date/Time of Note DATE: 01/09/17 TIME: 19:07 Assessment/Plan VTE Prophylaxis VTE Prophylaxis Intervention: LMWH Lines/Catheters IV [facility]from [facility] PORT A CATH Urinary Cath still in place: Yes Reason Cath still needed: urinary retention Assessment/Plan Chief Complaint/Hosp Course 1-Uncertain whether really septic. Lactic acid was minimally elevated, WBC may have been elevated due to concentraton from needing fluids reflected by H/H and splenectomy, and always afebrile. 2- Uncertain what collections are in abdomen/pelvis. Not urine or creat would be elevated. Very unlikely GI contents orwould be more painful and persistent elevated WBC. Unlikely hematoma of would have lower H/H. a) likely either lymphoceles or loculted ascites, possibly due to disease progression as it was not there 3 wk ago. Kenan Martínez M.D. Problems: Assessment/Plan A- improved with drainage; likely lymphocyst, possibly loculated ascites and very unlikely urine as her creatinine never elevated. Cytology unlikely + and C &S very unlikely +. P - Concur that Taxol is appropriate. Will send fluid for creatine to r/o any possibility of urine. Subjective 24 Hr Interval Summary Free Text/Dictation Feels much more comfortable. tolerating diet better Exam/Review of Systems Vital Signs Vitals Vital Signs Date Time Temp Pulse Resp B/P Pulse Ox O2 Delivery O2 Flow Rate FiO2 01/09/17 14:45 85 18 108/63 96 Room Air 01/09/17 12:30 98.8 01/09/17 11:20 2 Intake and Output 01/08/17 01/08/17 01/09/17 14:59 22:59 06:59 Intake Total 50 ml 980 ml 500 ml Output Total 800 ml 850 ml Balance 50 ml 180 ml -350 ml Exam Resp; clear CVS; nsr ABD- softer and less distended, nt Ext- nt no edema Results Result Diagram: 01/09/1745101/09/17451 Results 24 hrs Laboratory Tests Test 01/09/17 04:52 White Blood Count 3.0 #L Red Blood Count 3.09 L Hemoglobin 9.3 L Hematocrit 28.0 L Mean Corpuscular Volume 90.6 Mean Corpuscular Hemoglobin 30.1 Mean Corpuscular Hemoglobin Concent 33.2 Red Cell Distribution Width 17.3 H Platelet Count 162 Mean Platelet Volume 9.9 Neutrophils % 50.0 Lymphocytes % 43.1 Monocytes % 4.0 Eosinophils % 1.3 Basophils % 0.3 Nucleated Red Blood Cells % 0.0 Neutrophils # 1.5 L Lymphocytes # 1.3 Monocytes # 0.1 L Eosinophils # 0.0 Basophils # 0.0 Nucleated Red Blood Cells # 0.0 Sodium Level 135 Potassium Level 4.0 Chloride Level 98 Carbon Dioxide Level 31 Anion Gap 10 Blood Urea Nitrogen 9 Creatinine 0.44 Glucose Level 95 Calcium Level 8.7 Phosphorus Level 3.7 Magnesium Level 1.6 L Medications Medications Current Medications Ondansetron HCl (Zofran Inj) 4 mg Q6H PRN IV NAUSEA AND/OR VOMITING Last administered on 01/05/17 08:46; Admin Dose 4 MG; Start 01/02/17 at 07:00 Acetaminophen (Tylenol Tab) 650 mg Q6H PRN PO PAIN LEVEL 1-3 OR FEVER; Start at 07:00 Docusate Sodium (Colace) 100 mg Q12H PRN PO CONSTIPATION; Start 01/02/17 at 07: 00 Bisacodyl (Dulcolax) 5 mg DAILY PRN PO CONSTIPATION Last administered on 18:17; Admin Dose 5 MG; Start 01/02/17 at 07:00 Enoxaparin Sodium (Lovenox) 40 mg DAILY SC Last administered on 01/08/17 09:14 ; Admin Dose 40 MG; Start 01/02/17 at 09:00 Acetaminophen/ Hydrocodone Bitart ([place] (10/325)) 1 tab Q6H PRN PO PAIN Last administered on 01/08/17 22:13; Admin Dose 1 TAB; Start 01/02/17 at 15:30 Diphenhydramine HCl 25 mg 25 mg Q4H PRN IV ALLERGIC REACTION; Start 01/03/17 at 18:00 Ondansetron HCl/ Sodium Chloride (Zofran Inj/NS) 54 ml @ 216 mls/hr Q8H PRN IV NAUSEA AND/OR VOMITING; Start 01/03/17 at 18:00 Famotidine (Pepcid) 20 mg DAILY PO Last administered on 01/09/17 09:04; Admin Dose 20 MG; Start 01/09/17 at 09:00 Ciprofloxacin (Cipro) 500 mg BID@06,18 PO ; Start 01/09/17 at 21:00 Senna/Docusate Sodium (Senokot-S) 2 tab HS PO Last administered on 01/08/17t 20: 28; Admin Dose 2 TAB; Start 01/08/17 at 21:00 Lactobacillus Acidophilus/ Rhamnosus (Culturelle) 1 cap BID PO ; Start 01/09/17 at 21:00 KENAN MARTÍNEZ MD Jan 09, 2017 19:11
[2017-01-09] MEDS: LACTOBACILLUS RHAMNOSUS CAP PO SCH (20:27)
[2017-01-09] MEDS: CIPROFLOXACIN 500 MG TAB PO SCH (20:28)
[2017-01-09] MEDS: SENNA/DOCUSATE NA (8.6MG/50MG) TAB PO SCH (20:28)
[2017-01-09] MEDS: HYDROCODONE/APAP (10/325) TAB PO PRN (20:30)
[2017-01-10] VITALS (7 sets, daily range): BP systolic 112–134; BP diastolic 66–72; PULSE 71–80; RESP 18–20
[2017-01-10] MEDS ORDERED: ALTEPLASE (CATHFLO) 2 MG INJ CATHETER ONE (05:00)
[2017-01-10] MEDS: CIPROFLOXACIN 500 MG TAB PO SCH ×2 (05:06→17:35)
[2017-01-10] MEDS: HYDROCODONE/APAP (10/325) TAB PO PRN ×2 (05:15→16:15)
[2017-01-10] MEDS: FAMOTIDINE 20 MG TAB PO SCH (09:37)
[2017-01-10] MEDS: LACTOBACILLUS RHAMNOSUS CAP PO SCH ×2 (09:37→20:59)
[2017-01-10] MEDS: ENOXAPARIN 40 MG/0.4 ML SYG SC SCH (09:38)
[2017-01-10 09:54] LABS: ADD SCAN DIFF NO
[2017-01-10 10:01] LABS: BASOPHILS % 0.3 % (0.0-2.0); EOSINOPHILS % 0.6 % (0.0-7.0); HEMATOCRIT 27.7 % (37.0-47.0); HEMOGLOBIN 9.4 g/dl (12.0-16.0); LYMPHOCYTES # 1.6 10^3/ul (0.8-2.9); LYMPHOCYTES % 50.8 % (15.0-51.0); MEAN CORPUSCULAR HEMOGLOBIN 30.6 pg (29.0-33.0); MEAN CORPUSCULAR HGB CONC 33.9 g/dl (32.0-37.0); MEAN CORPUSCULAR VOLUME 90.2 fl (82.0-101.0); MEAN PLATELET VOLUME 9.7 fl (7.4-10.4); MONOCYTE # 0.2 10^3/ul (0.3-0.9); MONOCYTES % 6.5 % (0.0-11.0); NEUTROPHIL # 1.3 10^3/ul (1.6-7.5); NEUTROPHILS % 41.5 % (39.0-77.0); PLATELET COUNT 145 10^3/UL (140-415); RED BLOOD COUNT 3.07 10^6/ul (4.20-5.40); RED CELL DISTRIBUTION WIDTH 17.1 % (11.5-14.5); WHITE BLOOD COUNT 3.1 10^3/ul (4.8-10.8)
[2017-01-10 10:26] LABS: ALBUMIN 3.7 g/dl (3.3-4.9); ALBUMIN/GLOBULIN RATIO 1.08; CALCIUM 8.9 mg/dl (8.4-10.2); CREATININE 0.46 mg/dl (0.44-1.00); MAGNESIUM 1.9 mg/dl (1.7-2.5); PHOSPHORUS 4.4 mg/dl (2.5-4.9); POTASSIUM 4.1 mmol/L (3.5-5.1); TOTAL PROTEIN 7.1 g/dl (6.1-8.1)
--- NOTE | 2017-01-10 11:57 | CONS ---
Date/Time of Note Date/Time of Note DATE: 01/10/17 TIME: 11:56 Assessment/Plan Assessment/Plan Chief Complaint/Hosp Course 56 yo female with malignant ascites who has since been diagnosed with FIGO stage III ovarian cancer. Patient now presents 4 days after chemotherapy with carboplatin and taxol s/p syncopal event. Brain CT was negative. Pt now has lactic acidosis secondary to urosepsis and was found with a large abdominal fluid collection #Loculated abdominal fluid -s/p IR guided drainage. appears serous -send for cytology #urosepsis -continue antibiotics with ceftriaxone -pt now clinically stable. -repeat urine culture demonstrates no growth # ovarian ca, papillary serous , FIGO stage IIIc -pt is stable from an infection standpoint. vitals ok and she is afebrile -given her severe and aggressive disease, pt was given her 8 dose of Taxol at this time. -will plan to give day 15 dose of Taxol today #Leukocytosis - I believe this is likely secondary to her splenectomy as well as her active infection -continue antibiotics for UTI Approximately 40 min were spent at patient's bedside and in coordination of her care Problems: Consultation Date/Type/Reason Admit Date/Time January 02, 2017 at 03:35 Initial Consult Date 01/02/17 Type of Consultation: Oncology Reason for Consultation ovarian cancer Referring Provider: ANGEL FORTE 24 HR Interval Summary Free Text/Dictation patient is s/p IR guided drainage of the abdominal fluid. abdominal pain has improved Exam/Review of Systems Vital Signs Vitals Vital Signs Date Time Temp Pulse Resp B/P Pulse Ox O2 Delivery O2 Flow Rate FiO2 01/10/17 08:54 98.0 56 18 112/67 99 01/09/17 14:45 Room Air 01/09/17 11:20 2 Intake and Output 01/09/17 01/09/17 01/10/17 14:59 22:59 06:59 Intake Total 50 ml 1170 ml 240 ml Output Total 420 ml 365 ml 270 ml Balance -370 ml 805 ml -30 ml Exam Constitutional: alert, oriented Head: normocephalic Eyes: nl conjunctiva ENMT: nl external ears & nose Neck: non-tender, supple Respiratory: clear to auscultation Cardiovascular: nl pulses, regular rate and rhythm Gastrointestinal: other (drain in place) Musculoskeletal: nl extremities to inspection, nl gait and stance Extremities: normal pulses Results Result Diagram: 01/10/17 0935 01/10/17 0935 Results 24 hrs Laboratory Tests Test 01/10/17 09:35 White Blood Count 3.1 L Red Blood Count 3.07 L Hemoglobin 9.4 L Hematocrit 27.7 L Mean Corpuscular Volume 90.2 Mean Corpuscular Hemoglobin 30.6 Mean Corpuscular Hemoglobin Concent 33.9 Red Cell Distribution Width 17.1 H Platelet Count 145 Mean Platelet Volume 9.7 Neutrophils % 41.5 Lymphocytes % 50.8 Monocytes % 6.5 Eosinophils % 0.6 Basophils % 0.3 Nucleated Red Blood Cells % 0.0 Neutrophils # 1.3 L Lymphocytes # 1.6 Monocytes # 0.2 L Eosinophils # 0.0 Basophils # 0.0 Nucleated Red Blood Cells # 0.0 Sodium Level 135 Potassium Level 4.1 Chloride Level 101 Carbon Dioxide Level 28 Anion Gap 10 Blood Urea Nitrogen 9 Creatinine 0.46 Glucose Level 94 Calcium Level 8.9 Phosphorus Level 4.4 Magnesium Level 1.9 Total Bilirubin 0.0 L Direct Bilirubin 0.00 Indirect Bilirubin 0.0 Aspartate Amino Transf (AST/SGOT) 18 Alanine Aminotransferase (ALT/SGPT) 23 Alkaline Phosphatase 80 Total Protein 7.1 Albumin 3.7 Globulin 3.40 H Albumin/Globulin Ratio 1.08 Random Cortisol 9.3 Medications Medications Current Medications Ondansetron HCl (Zofran Inj) 4 mg Q6H PRN IV NAUSEA AND/OR VOMITING Last administered on 01/05/17 08:46; Admin Dose 4 MG; Start 01/02/17 at 07:00 Acetaminophen (Tylenol Tab) 650 mg Q6H PRN PO PAIN LEVEL 1-3 OR FEVER; Start at 07:00 Docusate Sodium (Colace) 100 mg Q12H PRN PO CONSTIPATION; Start 01/02/17 at 07: 00 Bisacodyl (Dulcolax) 5 mg DAILY PRN PO CONSTIPATION Last administered on 18:17; Admin Dose 5 MG; Start 01/02/17 at 07:00 Enoxaparin Sodium (Lovenox) 40 mg DAILY SC Last administered on 01/10/17 09:38 ; Admin Dose 40 MG; Start 01/02/17 at 09:00 Acetaminophen/ Hydrocodone Bitart ([place] (10/325)) 1 tab Q6H PRN PO PAIN Last administered on 01/10/17 05:15; Admin Dose 1 TAB; Start 01/02/17 at 15:30 Diphenhydramine HCl 25 mg 25 mg Q4H PRN IV ALLERGIC REACTION; Start 01/03/17 at 18:00 Ondansetron HCl/ Sodium Chloride (Zofran Inj/NS) 54 ml @ 216 mls/hr Q8H PRN IV NAUSEA AND/OR VOMITING; Start 01/03/17 at 18:00 Famotidine (Pepcid) 20 mg DAILY PO Last administered on 01/10/17 09:37; Admin Dose 20 MG; Start 01/09/17 at 09:00 Ciprofloxacin (Cipro) 500 mg BID@06,18 PO Last administered on 01/10/17 05:06; Admin Dose 500 MG; Start 01/09/17 at 21:00 Senna/Docusate Sodium (Senokot-S) 2 tab HS PO Last administered on 01/09/17 20: 28; Admin Dose 2 TAB; Start 01/08/17 at 21:00 Lactobacillus Acidophilus/ Rhamnosus (Culturelle) 1 cap BID PO Last administered on 01/10/17 09:37; Admin Dose 1 CAP; Start 01/09/17 at 21:00 FLORINDA COATES M.D. Jan 10, 2017 11:57
--- NOTE | 2017-01-10 12:10 | PN ---
Date/Time of Note Date/Time of Note DATE: 01/10/17 TIME: 12:08 Assessment/Plan VTE Prophylaxis VTE Prophylaxis Intervention: LMWH Lines/Catheters [facility] PAC Urinary Cath still in place: Yes Reason Cath still needed: skin wounds contaminated by urine Assessment/Plan Chief Complaint/Hosp Course S: 56-yr F w fainting episode at 11:30 PM, when she got up to use the restroom. She had been in bed for maybe 2 hrs. No witnessed seizure, stroke, blood loss. No further episodes. Started chemotherapy 1 wk ago. Patient drinks 3 glasses of fluids a day. 01/09: Feels much better; sp ir drain placement-urine? 01/10: Feels good. No fever or nausea vomiting. Positive BM. Drain output noted. O: vss Physical exam No pallor Reg Clear Bs +nt, nd; no R/R/G. drain -C/D/I No edema Neuro: Nonfocal A/P 1. Syncope. 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 - Probably hypotensive related. Needs to drink more fluids and avoid rapid movements after lying down. 2. Hypovolemia 3. Metastatic ovarian malignancy stage III C. Cont therapy. Needs to maintain hydration. 4. Acute cystitis? Less than 80,000 multiple organisms 5. Urinary retention; Bladder training? 6. Anemia, no bleeding. Potentially of chronic disease 7. Chronic hypertension 8. Ascites? Lymphocele? SP IR drain placement. Cont drain care. May need home health. 9. Splenectomy status 10. Constipation Problems: Exam/Review of Systems Vital Signs Vitals Vital Signs Date Time Temp Pulse Resp B/P Pulse Ox O2 Delivery O2 Flow Rate FiO2 01/10/17 08:54 98.0 56 18 112/67 99 01/09/17 14:45 Room Air 01/09/17 11:20 2 Intake and Output 01/09/17 01/09/17 01/10/17 15:00 23:00 07:00 Intake Total 1170 ml 240 ml Output Total 420 ml 365 ml 270 ml Balance -420 ml 805 ml -30 ml Results Result Diagram: 01/10/17 0935 01/10/17 0935 Results 24 hrs Laboratory Tests Test 01/10/17 09:35 White Blood Count 3.1 L Red Blood Count 3.07 L Hemoglobin 9.4 L Hematocrit 27.7 L Mean Corpuscular Volume 90.2 Mean Corpuscular Hemoglobin 30.6 Mean Corpuscular Hemoglobin Concent 33.9 Red Cell Distribution Width 17.1 H Platelet Count 145 Mean Platelet Volume 9.7 Neutrophils % 41.5 Lymphocytes % 50.8 Monocytes % 6.5 Eosinophils % 0.6 Basophils % 0.3 Nucleated Red Blood Cells % 0.0 Neutrophils # 1.3 L Lymphocytes # 1.6 Monocytes # 0.2 L Eosinophils # 0.0 Basophils # 0.0 Nucleated Red Blood Cells # 0.0 Sodium Level 135 Potassium Level 4.1 Chloride Level 101 Carbon Dioxide Level 28 Anion Gap 10 Blood Urea Nitrogen 9 Creatinine 0.46 Glucose Level 94 Calcium Level 8.9 Phosphorus Level 4.4 Magnesium Level 1.9 Total Bilirubin 0.0 L Direct Bilirubin 0.00 Indirect Bilirubin 0.0 Aspartate Amino Transf (AST/SGOT) 18 Alanine Aminotransferase (ALT/SGPT) 23 Alkaline Phosphatase 80 Total Protein 7.1 Albumin 3.7 Globulin 3.40 H Albumin/Globulin Ratio 1.08 Random Cortisol 9.3 Medications Medications Current Medications Ondansetron HCl (Zofran Inj) 4 mg Q6H PRN IV NAUSEA AND/OR VOMITING Last administered on 01/05/17 08:46; Admin Dose 4 MG; Start 01/02/17 at 07:00 Acetaminophen (Tylenol Tab) 650 mg Q6H PRN PO PAIN LEVEL 1-3 OR FEVER; Start at 07:00 Docusate Sodium (Colace) 100 mg Q12H PRN PO CONSTIPATION; Start 01/02/17 at 07: 00 Bisacodyl (Dulcolax) 5 mg DAILY PRN PO CONSTIPATION Last administered on 18:17; Admin Dose 5 MG; Start 01/02/17 at 07:00 Enoxaparin Sodium (Lovenox) 40 mg DAILY SC Last administered on 01/10/17 09:38 ; Admin Dose 40 MG; Start 01/02/17 at 09:00 Acetaminophen/ Hydrocodone Bitart ([place] (10/325)) 1 tab Q6H PRN PO PAIN Last administered on 01/10/17 05:15; Admin Dose 1 TAB; Start 01/02/17 at 15:30 Diphenhydramine HCl 25 mg 25 mg Q4H PRN IV ALLERGIC REACTION; Start 01/03/17 at 18:00 Ondansetron HCl/ Sodium Chloride (Zofran Inj/NS) 54 ml @ 216 mls/hr Q8H PRN IV NAUSEA AND/OR VOMITING; Start 01/03/17 at 18:00 Famotidine (Pepcid) 20 mg DAILY PO Last administered on 01/10/17 09:37; Admin Dose 20 MG; Start 01/09/17 at 09:00 Ciprofloxacin (Cipro) 500 mg BID@06,18 PO Last administered on 01/10/17 05:06; Admin Dose 500 MG; Start 01/09/17 at 21:00 Senna/Docusate Sodium (Senokot-S) 2 tab HS PO Last administered on 01/09/17 20: 28; Admin Dose 2 TAB; Start 01/08/17 at 21:00 Lactobacillus Acidophilus/ Rhamnosus (Culturelle) 1 cap BID PO Last administered on 01/10/17 09:37; Admin Dose 1 CAP; Start 01/09/17 at 21:00 DEANNA ONEAL MD Jan 10, 2017 12:10
[2017-01-10] MEDS: SOD CHLORIDE 0.9% 1,000 ML IV SCH (17:30)
--- NOTE | 2017-01-10 17:49 | RADRPT ---
Vent Rate: 84 bpm RR Interval: 0 msec MA Interval: 140 msec QRS Duration: 76 msec QT Interval: 348 msec QTC Interval: 411 msec P-R-T [place]: 48 - 15 - 38 degrees Normal sinus rhythm Cannot rule out Anterior infarct , age undetermined Abnormal ECG Electronically Signed By: Dao Todd [id number]
[2017-01-10] MEDS: SENNA/DOCUSATE NA (8.6MG/50MG) TAB PO SCH (21:00)
[2017-01-10] MEDS ORDERED: ONDANSETRON IVPB SCH (21:00)
[2017-01-10] MEDS ORDERED: DEXAMETHASONE IVPB SCH (21:00)
[2017-01-10] MEDS ORDERED: [UNRECOGNIZED DRUG - OTHER] IVPB SCH (21:00)
[2017-01-10] MEDS ORDERED: PACLITAXEL IV SCH (21:00)
[2017-01-10] MEDS ORDERED: DIPHENHYDRAMINE IVPB SCH (21:00)
[2017-01-10] MEDS ORDERED: SOD CHLORIDE 0.9% IV SCH (21:00)
[2017-01-11] VITALS (8 sets, daily range): BP systolic 115–137; BP diastolic 60–76; PULSE 63–79; RESP 18–20
[2017-01-11] MEDS: SOD CHLORIDE 0.9% 1,000 ML IV SCH ×3 (03:00→12:22)
[2017-01-11 05:12] LABS: ADD SCAN DIFF NO
[2017-01-11 05:22] LABS: BASOPHILS % 0.3 % (0.0-2.0); HEMATOCRIT 29.3 % (37.0-47.0); HEMOGLOBIN 9.6 g/dl (12.0-16.0); LYMPHOCYTES # 0.8 10^3/ul (0.8-2.9); MEAN CORPUSCULAR HEMOGLOBIN 29.6 pg (29.0-33.0); MEAN CORPUSCULAR HGB CONC 32.8 g/dl (32.0-37.0); MEAN CORPUSCULAR VOLUME 90.4 fl (82.0-101.0); MEAN PLATELET VOLUME 10.5 fl (7.4-10.4); MONOCYTES % 1.2 % (0.0-11.0); NEUTROPHIL # 2.4 10^3/ul (1.6-7.5); NEUTROPHILS % 72.9 % (39.0-77.0); PLATELET COUNT 171 10^3/UL (140-415); RED BLOOD COUNT 3.24 10^6/ul (4.20-5.40); RED CELL DISTRIBUTION WIDTH 17.3 % (11.5-14.5); WHITE BLOOD COUNT 3.2 10^3/ul (4.8-10.8)
[2017-01-11 05:42] LABS: CREATININE 0.43 mg/dl (0.44-1.00); MAGNESIUM 1.8 mg/dl (1.7-2.5); PHOSPHORUS 4.6 mg/dl (2.5-4.9); POTASSIUM 4.4 mmol/L (3.5-5.1)
[2017-01-11] MEDS: CIPROFLOXACIN 500 MG TAB PO SCH ×2 (05:48→17:18)
[2017-01-11] MEDS: LACTOBACILLUS RHAMNOSUS CAP PO SCH ×2 (08:16→20:21)
[2017-01-11] MEDS: FAMOTIDINE 20 MG TAB PO SCH (08:16)
[2017-01-11] MEDS: ENOXAPARIN 40 MG/0.4 ML SYG SC SCH (08:21)
--- NOTE | 2017-01-11 13:51 | CONS ---
Date/Time of Note Date/Time of Note DATE: 01/11/17 TIME: 13:48 Assessment/Plan Assessment/Plan Chief Complaint/Hosp Course 56 yo female with malignant ascites who has since been diagnosed with FIGO stage III ovarian cancer. Patient now presents 4 days after chemotherapy with carboplatin and taxol s/p syncopal event. Brain CT was negative. Pt now has lactic acidosis secondary to urosepsis and was found with a large abdominal fluid collection #Loculated abdominal fluid -s/p IR guided drainage. appears serous. drainage is minimal -send for cytology -will defer to surgery as to when drain can be removed #urosepsis -continue antibiotics with ceftriaxone -pt now clinically stable. -repeat urine culture demonstrates no growth # ovarian ca, papillary serous , FIGO stage IIIc -pt is stable from an infection standpoint. vitals ok and she is afebrile -given her severe and aggressive disease, pt was given her 8 dose of Taxol at this time. -s/p day 15 dose of Taxol today #Leukocytosis - I believe this is likely secondary to her splenectomy as well as her active infection -continue antibiotics for UTI Approximately 40 min were spent at patient's bedside and in coordination of her care Problems: Consultation Date/Type/Reason Admit Date/Time January 02, 2017 at 03:35 Initial Consult Date 01/02/17 Type of Consultation: Oncology Reason for Consultation ovarian cancer Referring Provider: ANGEL FORTE 24 HR Interval Summary Free Text/Dictation pt received Taxol yesterday. tolerated chemotherapy well. Exam/Review of Systems Vital Signs Vitals Vital Signs Date Time Temp Pulse Resp B/P Pulse Ox O2 Delivery O2 Flow Rate FiO2 01/11/17 08:11 97.7 72 18 120/71 97 01/11/17 04:05 Room Air 01/09/17 11:20 2 Intake and Output 01/10/17 01/10/17 01/11/17 14:59 22:59 06:59 Intake Total 1455.5 ml 1721 ml Output Total 400 ml 1700 ml Balance 1055.5 ml 21 ml Exam Constitutional: alert, oriented Psych: no complaints Head: normocephalic Eyes: nl conjunctiva ENMT: nl external ears & nose Neck: non-tender, supple Respiratory: clear to auscultation Cardiovascular: regular rate and rhythm Gastrointestinal: other (abdominal drain in place with minimal output), soft Musculoskeletal: nl extremities to inspection Results Result Diagram: 01/11/17 0425 01/11/17 0425 Results 24 hrs Laboratory Tests Test 01/11/17 04:25 White Blood Count 3.2 L Red Blood Count 3.24 L Hemoglobin 9.6 L Hematocrit 29.3 L Mean Corpuscular Volume 90.4 Mean Corpuscular Hemoglobin 29.6 Mean Corpuscular Hemoglobin Concent 32.8 Red Cell Distribution Width 17.3 H Platelet Count 171 Mean Platelet Volume 10.5 H Neutrophils % 72.9 Lymphocytes % 25.0 Monocytes % 1.2 Eosinophils % 0.0 Basophils % 0.3 Nucleated Red Blood Cells % 0.0 Neutrophils # 2.4 Lymphocytes # 0.8 Monocytes # 0.0 L Eosinophils # 0.0 Basophils # 0.0 Nucleated Red Blood Cells # 0.0 Sodium Level 140 Potassium Level 4.4 Chloride Level 106 Carbon Dioxide Level 28 Anion Gap 10 Blood Urea Nitrogen 6 L Creatinine 0.43 L Glucose Level 136 # Calcium Level 9.0 Phosphorus Level 4.6 Magnesium Level 1.8 Medications Medications Current Medications Ondansetron HCl (Zofran Inj) 4 mg Q6H PRN IV NAUSEA AND/OR VOMITING Last administered on 01/05/17 08:46; Admin Dose 4 MG; Start 01/02/17 at 07:00 Acetaminophen (Tylenol Tab) 650 mg Q6H PRN PO PAIN LEVEL 1-3 OR FEVER; Start at 07:00 Docusate Sodium (Colace) 100 mg Q12H PRN PO CONSTIPATION; Start 01/02/17 at 07: 00 Bisacodyl (Dulcolax) 5 mg DAILY PRN PO CONSTIPATION Last administered on 18:17; Admin Dose 5 MG; Start 01/02/17 at 07:00 Enoxaparin Sodium (Lovenox) 40 mg DAILY SC Last administered on 01/11/17 08:21 ; Admin Dose 40 MG; Start 01/02/17 at 09:00 Acetaminophen/ Hydrocodone Bitart ([place] (10/325)) 1 tab Q6H PRN PO PAIN Last administered on 01/10/17 16:15; Admin Dose 1 TAB; Start 01/02/17 at 15:30 Diphenhydramine HCl 25 mg 25 mg Q4H PRN IV ALLERGIC REACTION; Start 01/03/17 at 18:00 Ondansetron HCl/ Sodium Chloride (Zofran Inj/NS) 54 ml @ 216 mls/hr Q8H PRN IV NAUSEA AND/OR VOMITING; Start 01/03/17 at 18:00 Famotidine (Pepcid) 20 mg DAILY PO Last administered on 01/11/17 08:16; Admin Dose 20 MG; Start 01/09/17 at 09:00 Ciprofloxacin (Cipro) 500 mg BID@06,18 PO Last administered on 01/11/17 05:48; Admin Dose 500 MG; Start 01/09/17 at 21:00 Senna/Docusate Sodium (Senokot-S) 2 tab HS PO Last administered on 01/10/17 21: 00; Admin Dose 2 TAB; Start 01/08/17 at 21:00 Lactobacillus Acidophilus/ Rhamnosus 1 cap 1 cap BID PO Last administered on 08:16; Admin Dose 1 CAP; Start 01/09/17 at 21:00 Sodium Chloride (NS) 1,000 ml @ 100 mls/hr Q10H IV Last administered on 05:48; Admin Dose 100 MLS/HR; Start 01/10/17 at 17:00 FLORINDA COATES M.D. Jan 11, 2017 13:51
[2017-01-11] MEDS: BISACODYL (EC) 5 MG TAB PO PRN (15:05)
--- NOTE | 2017-01-11 16:39 | PN ---
Date/Time of Note Date/Time of Note DATE: 01/11/17 TIME: 16:38 Assessment/Plan VTE Prophylaxis VTE Prophylaxis Intervention: LMWH Lines/Catheters IV [facility]from [facility] PORTACATH Urinary Cath still in place: No Assessment/Plan Chief Complaint/Hosp Course S: 56-yr F w fainting episode at 11:30 PM, when she got up to use the restroom. She had been in bed for maybe 2 hrs. No witnessed seizure, stroke, blood loss. No further episodes. Started chemotherapy 1 wk ago. Patient drinks 3 glasses of fluids a day. 01/09: Feels much better; sp ir drain placement-urine? 01/10: Feels good. No fever or nausea vomiting. Positive BM. Drain output noted. 01/11: No events. O: vss PE No pallor Reg Clear Bs +nt, nd; no R/R/G. drain -C/D/I No edema Neuro: Nonfocal A/P 1. Syncope. Stable, dc home when ok w CHART SNATCHER- ONC. - Probably hypotensive related. Needs to drink more fluids and avoid rapid movements after lying down. 2. Hypovolemia 3. Metastatic ovarian malignancy stage III C. Cont therapy. Needs to maintain hydration. 4. Acute cystitis? Less than 80,000 multiple organisms. Discontinue antibiotics [place] if okay with OB-CHART SNATCHER 5. Urinary retention; Bladder training? 6. Anemia, no bleeding. Potentially of chronic disease 7. Chronic hypertension 8. Ascites? Lymphocele? SP IR drain placement. Cont drain care. May need home health. 9. Splenectomy status 10. Constipation Problems: Exam/Review of Systems Vital Signs Vitals Vital Signs Date Time Temp Pulse Resp B/P Pulse Ox O2 Delivery O2 Flow Rate FiO2 01/11/17 08:11 97.7 72 18 120/71 97 01/11/17 04:05 Room Air 01/09/17 11:20 2 Intake and Output 01/10/17 01/10/17 01/11/17 15:00 23:00 07:00 Intake Total 1455.5 ml 1721 ml Output Total 400 ml 1700 ml Balance 1055.5 ml 21 ml Results Result Diagram: 01/11/17 0425 01/11/17 0425 Results 24 hrs Laboratory Tests Test 01/11/17 04:25 White Blood Count 3.2 L Red Blood Count 3.24 L Hemoglobin 9.6 L Hematocrit 29.3 L Mean Corpuscular Volume 90.4 Mean Corpuscular Hemoglobin 29.6 Mean Corpuscular Hemoglobin Concent 32.8 Red Cell Distribution Width 17.3 H Platelet Count 171 Mean Platelet Volume 10.5 H Neutrophils % 72.9 Lymphocytes % 25.0 Monocytes % 1.2 Eosinophils % 0.0 Basophils % 0.3 Nucleated Red Blood Cells % 0.0 Neutrophils # 2.4 Lymphocytes # 0.8 Monocytes # 0.0 L Eosinophils # 0.0 Basophils # 0.0 Nucleated Red Blood Cells # 0.0 Sodium Level 140 Potassium Level 4.4 Chloride Level 106 Carbon Dioxide Level 28 Anion Gap 10 Blood Urea Nitrogen 6 L Creatinine 0.43 L Glucose Level 136 # Calcium Level 9.0 Phosphorus Level 4.6 Magnesium Level 1.8 Medications Medications Current Medications Ondansetron HCl (Zofran Inj) 4 mg Q6H PRN IV NAUSEA AND/OR VOMITING Last administered on 01/05/17 08:46; Admin Dose 4 MG; Start 01/02/17 at 07:00 Acetaminophen (Tylenol Tab) 650 mg Q6H PRN PO PAIN LEVEL 1-3 OR FEVER; Start at 07:00 Docusate Sodium (Colace) 100 mg Q12H PRN PO CONSTIPATION; Start 01/02/17 at 07: 00 Bisacodyl (Dulcolax) 5 mg DAILY PRN PO CONSTIPATION Last administered on 15:05; Admin Dose 5 MG; Start 01/02/17 at 07:00 Enoxaparin Sodium (Lovenox) 40 mg DAILY SC Last administered on 01/11/17 08:21 ; Admin Dose 40 MG; Start 01/02/17 at 09:00 Acetaminophen/ Hydrocodone Bitart (Hope (10/325)) 1 tab Q6H PRN PO PAIN Last administered on 01/10/17 16:15; Admin Dose 1 TAB; Start 01/02/17 at 15:30 Diphenhydramine HCl 25 mg 25 mg Q4H PRN IV ALLERGIC REACTION; Start 01/03/17 at 18:00 Ondansetron HCl/ Sodium Chloride (Zofran Inj/NS) 54 ml @ 216 mls/hr Q8H PRN IV NAUSEA AND/OR VOMITING; Start 01/03/17 at 18:00 Famotidine (Pepcid) 20 mg DAILY PO Last administered on 01/11/17 08:16; Admin Dose 20 MG; Start 01/09/17 at 09:00 Ciprofloxacin (Cipro) 500 mg BID@06,18 PO Last administered on 01/11/17 05:48; Admin Dose 500 MG; Start 01/09/17 at 21:00 Senna/Docusate Sodium (Senokot-S) 2 tab HS PO Last administered on 01/10/17 21: 00; Admin Dose 2 TAB; Start 01/08/17 at 21:00 Lactobacillus Acidophilus/ Rhamnosus 1 cap 1 cap BID PO Last administered on 08:16; Admin Dose 1 CAP; Start 01/09/17 at 21:00 Sodium Chloride (NS) 1,000 ml @ 100 mls/hr Q10H IV Last administered on 05:48; Admin Dose 100 MLS/HR; Start 01/10/17 at 17:00 DEANNA ONEAL MD Jan 11, 2017 16:39
--- NOTE | 2017-01-11 17:03 | PDOCDIS ---
Discharge Instructions DIAGNOSIS Discharge Diagnosis: abd pain/ fluid collection CONDITION Patient Condition: Stable HOME CARE INSTRUCTIONS: Special Diet: REGULAR ACTIVITY: Activity Restrictions: Slowly Increase Activity Do not Drive FOLLOW UP/APPOINTMENTS Appointments Dr Pierce 1wk PCP 1wk Dr Gonzalez - as instructed Home health for drain care arranged. DEANNA ONEAL MD Jan 11, 2017 17:03
[2017-01-11] MEDS ORDERED: LACT1CAP57 PO (17:05)
[2017-01-11] MEDS ORDERED: ACET325T40 PO (17:05)
[2017-01-11] MEDS ORDERED: FAMO20TA18 PO (17:05)
[2017-01-11] MEDS ORDERED: SENN-88 PO (17:05)
--- NOTE | 2017-01-11 17:06 | PDOCDIS ---
Discharge Instructions DIAGNOSIS Discharge Diagnosis: Abdominal pain/fluid collection CONDITION Patient Condition: Stable HOME CARE INSTRUCTIONS: Special Diet: REGULARYour diet recommendation is: Drink 6-8 glasses of fluids per day. More if you have diarrhea. ACTIVITY: Activity Restrictions: Slowly Increase Activity Do not Drive FOLLOW UP/APPOINTMENTS Appointments Appointment primary care [address] Pierce [address] Gonzalez as instructed Home health arranged for drain care. DEANNA ONEAL MD Jan 11, 2017 17:06
[2017-01-11] MEDS: ONDANSETRON 4 MG INJ IV PRN (17:18)
[2017-01-11] MEDS: HYDROCODONE/APAP (10/325) TAB PO PRN (17:19)
[2017-01-11] MEDS: SENNA/DOCUSATE NA (8.6MG/50MG) TAB PO SCH (20:22)
[2017-01-11] MEDS ORDERED: HEPARIN (100 UNITS/ML) 5 ML SYG CATHETER ONE (21:00)
== END 2017-01-11 21:30 | disposition home or self-care (01) | DRG 872 ==
LOC: E/R 23:29 → MS4 01-02 03:35 → MS1 01-02 20:11
PROVIDERS: ADMIT Family Medicine; ATTEND Family Medicine
PROC: 0J9C30Z Drainage of Pelvic Region Subcutaneous Tissue and Fascia with Drainage Device, Percutaneous Approach (ICD-10-PCS; principal; 2017-01-09)
DX: A41.9 Sepsis, unspecified organism (principal); C79.60 Secondary malignant neoplasm of unspecified ovary; E87.2 Acidosis; K74.60 Unspecified cirrhosis of liver; E86.0 Dehydration; N30.00 Acute cystitis without hematuria; E86.1 Hypovolemia; N83.7 Hematoma of broad ligament; D63.8 Anemia in other chronic diseases classified elsewhere; I10 Essential (primary) hypertension; R33.9 Retention of urine, unspecified; Z90.81 Acquired absence of spleen; Z79.899 Other long term (current) drug therapy
CPT/HCPCS: 36415; 70450; 71010; 71275; 72170; 75635; 75989; 76856; 77012; 80048; 80053; 81001; 81003; 82306; 82533; 82550; 82553; 83605; 83735; 84100; 84443; 84484; 85025; 85610; 85730; 86304; 87040; 87070; 87086; 88104; 88305; 93005; 93306; 93880; 96374; 96375; J9267; C9113; J0696; J1100; J1200; J1642; J1650; J2250; J2405; J2543; J2997; J3010; J3475; J7030; J7040; Q9967

== ENCOUNTER 2017-01-30 14:37 | Emergency (ER) | payer OTHER ==
[~2017-01-30] VITALS: Wt 60.0 kg
[~2017-01-30 14:37] MED LIST changes: +ACET325T40 PO; +FAMO20TA18 PO; -FURO40TA4 PO; +LACT1CAP57 PO; +PHEN1SUP80 PR; +SENN-88 PO
--- NOTE | 2017-01-30 17:24 | ERD ---
ER Documentation Chief Complaint Date/Time DATE: 01/30/17 TIME: 17:21 Chief Complaint POSSIBLE ABD DRAIN PROBLEM, NO PAIN REPORTED, NO BLEEDING/REDNESS HPI This is a 56-year-old female with a history of uterine and ovarian cancer status post removal of the uterus and ovaries. The patient then subsequently had a fluid collection and a left lower quadrant drain was placed last month. The patient's only had 75 cc of drainage of her 4 days and has had no drainage in 24 hours. The family noticed some erythema and some pus discharge at the entry site into the abdominal wall. The patient is having no pain and no fevers ROS All systems reviewed and are negative except as per history of present illness. Medications Home Meds Active Scripts Sennosides/Docusate Sodium (Senna Plus Tablet) 1 Each Tablet, 2 TAB PO HS for 5 Days, #10 TAB 3 Refills Prov:DEANNA ONEAL MD 01/11/17 Lactobacillus Rhamnosus* (Culturelle*) 1 Each Cap.sprink, 1 CAP PO BID for 10 Days, #20 CAP Prov:DEANNA ONEAL MD 01/11/17 Famotidine* (Famotidine*) 20 Mg Tablet, 20 MG PO DAILY for 7 Days, #10 TAB Prov:DEANNA ONEAL MD 01/11/17 Acetaminophen (MAPAP) 325 Mg Tablet, 650 MG PO Q6H Y for PAIN LEVEL 1-3 OR FEVER for 1 Day, #1 TAB Prov:DEANNA ONEAL MD 01/11/17 Albuterol Sulfate* (Ventolin HFA*) 18 Gm Hfa.aer.ad, 2 PUFF INH Q6H RESP THERAPY , #1 2 Refills Prov:QUINCY KU S. 12/03/16 Spironolactone* (Aldactone*) 100 Mg Tablet, 100 MG PO DAILY, #30 TAB 4 Refills Prov:QUINCY KU S. 12/03/16 Reported Medications Phenylephrine HCl/Lenox Butter* (Preparation H* Suppository) 1 Each Supp.rect, [address] BID, SUPP.RECT 01/02/17 Allergies Allergies: Coded Allergies: No Known Allergy (Unverified , 01/02/17) PMhx/Soc History of Surgery: Yes Anesthesia Reaction: No Hx Neurological Disorder: Yes Hx Respiratory Disorders: No Hx Cardiac Disorders: Yes Hx Psychiatric Problems: No Hx Miscellaneous Medical Probl: No Hx Alcohol Use: No Hx Substance Use: No Hx Tobacco Use: No FmHx Family History: No coronary disease Physical Exam Vitals Vital Signs Date Time Temp Pulse Resp B/P Pulse Ox O2 Delivery O2 Flow Rate FiO2 01/30/17 14:43 97.4 97 18 126/78 98 Physical Exam Const: Well-developed, well-nourished Head: Atraumatic, normocephalic Eyes: Normal Conjunctiva, PERRLA, EOMI, normal sclera, no nystagmus ENT: Normal External Ears, Nose and Mouth, moist mucus membranes. Neck: Full range of motion. No meningismus, no lymphadenopathy. Resp: Clear to auscultation bilaterally, no wheezing, rhonchi, rales Cardio: Regular rate and rhythm, no murmurs, S1 S2 present Abd: Soft, non tender x 4, non distended. Normal bowel sounds, no guarding or rebound, no pulsitile abdominal masses or bruits, there is a left lower quadrant drain in place with some erythema and some purulence odorous discharge at the abdominal wall site no palpable abscess or induration there is no drainage in the drainage bag Skin: No petechiae or rashes, no ecchymosis , no maculopapular rash Back: No midline or flank tenderness Ext: No cyanosis, or edema, FROM x 4, normal inspection, neurovascularly intact x 4 Neur: Awake and alert, STR 5/5 x 4, sensation intact x 4, no focal findings, cerebellum intact Psych: Normal Mood and Affect Procedures/MDM I called and spoke with the surgeon Dr. Du he told me to go ahead and remove the drain Abdominal cavity drain removal by me The suture was cut with scissors and suture removed by me. Drain was pulled out in a steady motion without any difficulties the patient tolerated the procedure well. The skin was cleaned with alcohol Departure Diagnosis: Primary Impression: Encounter for change or removal of drains Condition: Stable Patient Instructions: Abdominal Pain, Unknown Cause, (Female) SCOTT MARTINEZ DO Jan 30, 2017 17:24
[2017-01-30] MEDS ORDERED: CEPH-443 PO (17:29)
[2017-01-30 17:40] VITALS: BP 138/68; PULSE 77; RESP 18
== END 2017-01-30 17:40 | disposition home or self-care (01) ==
LOC: FTE 14:37
DX: Z48.03 Encounter for change or removal of drains (principal)
CPT/HCPCS: 99283

== ENCOUNTER 2017-03-15 10:42 | Inpatient (IN) | END 2017-03-16 12:25 | disposition home or self-care (01) | DRG 812 | DX: D64.9 Anemia, unspecified (principal); Z85.43 Personal history of malignant neoplasm of ovary ==

== ENCOUNTER 2017-04-01 17:01 | Inpatient (IN) | payer OTHER ==
[~2017-04-01] VITALS: Ht 160 cm; Wt 61.5 kg
[~2017-04-01 17:01] MED LIST changes: -ACET325T40 PO; -ALBU18HF INH; +DOCU-144 PO; -FAMO20TA18 PO; -LACT1CAP57 PO; +MECL-77 PO; -PHEN1SUP80 PR; +SENN-53 PO; -SENN-88 PO; -SPIR100T PO
[2017-04-01] MEDS ORDERED: SOD CHLORIDE 0.9% 1,000 ML IV STA (18:15)
[2017-04-01] MEDS ORDERED: morphine 4 MG/ML VIAL IV STA (18:15)
[2017-04-01] MEDS ORDERED: ONDANSETRON 4 MG INJ IV STA (18:15)
--- NOTE | 2017-04-01 18:29 | ERA ---
ER Documentation Chief Complaint Date/Time DATE: 04/01/17 TIME: 18:17 Chief Complaint AP, LAST CHEMO SUNDAY HPI This is a 56-year-old female with known lung cancer actively given getting chemo , most recently 3 days ago, a known abdominal hernia who is presenting with acute onset sharp 10 out of 10 cramping upper abdominal pain near her hernia site with nausea and vomiting. She has a history of a fluid collection in her abdomen that was drained several months ago. It was found after evaluation from a trauma. The fluid does not appear to have been sent off for testing based on review of previous records. The patient has also have previous abdominal surgeries, including a TRACY. The patient denies fever or chills. She denies headache or vision changes. She denies chest pain or trouble breathing. She has not had any issues with urination or bowel movements. She has no focal deficits. ROS All systems reviewed and are negative except as per history of present illness. Medications Home Meds Reported Medications Meclizine Hcl* (Meclizine Hcl*) 25 Mg Tablet, 25 MG PO TID for NAUSEA, TAB 03/15/17 Docusate Sodium* (Colace*) 100 Mg Capsule, 100 MG PO DAILY for CONSTIPATION, # 30 CAP 03/15/17 Sennosides* (Senna Lax*) 8.6 Mg Tablet, 1 TAB PO BID for CONSTIPATION, TAB 03/15/17 Allergies Allergies: Coded Allergies: No Known Allergy (Unverified , 03/15/17) PMhx/Soc History of Surgery: Yes (TRACY) Anesthesia Reaction: No Hx Neurological Disorder: No Hx Respiratory Disorders: No Hx Cardiac Disorders: No Hx Psychiatric Problems: No Hx Miscellaneous Medical Probl: Yes (Lung Ca) Hx Alcohol Use: No Hx Substance Use: No Hx Tobacco Use: No FmHx Family History: No coronary disease, No diabetes Physical Exam Vitals Vital Signs Date Time Temp Pulse Resp B/P Pulse Ox O2 Delivery O2 Flow Rate FiO2 04/01/17 19:14 97.9 71 20 158/71 99 Room Air 04/01/17 17:03 97.9 92 20 162/86 99 Physical Exam Const: NAD but in pain Head: Atraumatic Eyes: Normal Conjunctiva ENT: Normal External Ears, Nose and Mouth. Neck: Full range of motion..~ No meningismus. Resp: Clear to auscultation bilaterally Cardio: Regular rate and rhythm, no murmurs Abd: Soft, non tender, non distended. Normal bowel sounds Skin: No petechiae or rashes Back: No midline or flank tenderness Ext: No cyanosis, or edema Neur: Awake and alert Psych: Normal Mood and Affect Result Diagram: 04/01/17189904/01/171899 Results 24 hrs Laboratory Tests Test 04/01/17 17:55 04/01/17 19:00 Urine Color YELLOW Urine Clarity SLIGHTLY CLOUDY Urine pH 5.0 Urine Specific [place] 1.017 Urine Ketones NEGATIVEmg/dL Urine Nitrite NEGATIVEmg/dL Urine Bilirubin NEGATIVEmg/dL Urine Urobilinogen NEGATIVEmg/dL Urine Leukocyte Esterase TRACELeu/ul Urine Microscopic RBC 1/HPF Urine Microscopic WBC 14/HPF Urine Squamous Epithelial Cells FEW/HPF Urine Bacteria FEW/HPF Urine Mucus FEW/HPF Urine Hemoglobin NEGATIVEmg/dL Urine Glucose NEGATIVEmg/dL Urine Total Protein 1+mg/dl White Blood Count 11.510^3/ul Red Blood Count 2.8310^6/ul Hemoglobin 9.3g/dl Hematocrit 27.5% Mean Corpuscular Volume 97.2fl Mean Corpuscular Hemoglobin 32.9pg Mean Corpuscular Hemoglobin Concent 33.8g/dl Red Cell Distribution Width 19.5% Platelet Count 00595^3/UL Mean Platelet Volume 9.5fl Neutrophils % 79.5% Lymphocytes % 14.0% Monocytes % 4.6% Eosinophils % 0.0% Basophils % 0.2% Nucleated Red Blood Cells % 0.4/100WBC Neutrophils # (Manual) 9.110^3/ul Lymphocytes # 1.610^3/ul Monocytes # 0.510^3/ul Eosinophils # 0.010^3/ul Basophils # 0.010^3/ul Nucleated Red Blood Cells # 0.110^3/ul Sodium Level 146mmol/L Potassium Level 3.7mmol/L Chloride Level 102mmol/L Carbon Dioxide Level 29mmol/L Anion Gap 19 Blood Urea Nitrogen 14mg/dl Creatinine 0.68mg/dl Glucose Level 121mg/dl Calcium Level 8.6mg/dl Total Bilirubin 0.2mg/dl Direct Bilirubin 0.00mg/dl Indirect Bilirubin 0.2mg/dl Aspartate Amino Transf (AST/SGOT) 21IU/L Alanine Aminotransferase (ALT/SGPT) 19IU/L Alkaline Phosphatase 85IU/L Total Protein 7.8g/dl Albumin 3.6g/dl Globulin 4.20g/dl Albumin/Globulin Ratio 0.85 Lipase 74U/L Current Medications Medications (Trade) Dose Ordered Sig/Daryn Route PRN Reason Start Time Stop Time Status Last Admin Dose Admin Sodium Chloride (NS) 1,000 ml @ 1,000 mls/hr Q1H STAT IV 04/01/17 18:15 04/01/17 19:14 DC 04/01/17 18:39 Morphine Sulfate (morphine) 4 mg ONCE STAT IV 04/01/17 18:15 04/01/17 18:18 DC 04/01/17 18:39 Ondansetron HCl (Zofran Inj) 4 mg ONCE STAT IV 04/01/17 18:15 04/01/17 18:18 DC 04/01/17 18:39 Ondansetron HCl (Zofran Inj) 4 mg BRIDGE ORDER PRN IV NAUSEA AND/OR VOMITING 04/01/17 23:00 04/02/17 22:59 Acetaminophen (Tylenol Tab) 650 mg ER BRIDGE PRN PO MILD PAIN/FEVER 04/01/17 23:00 04/02/17 22:59 Procedures/MDM Patient's presenting with abdominal pain and an abdominal workup will be performed. The patient did recently have chemo, and there is a possibility that her pain could be attributed to chemotherapy pains. However, the patient also has a known abdominal hernia in the area. While it feels reducible, this needs further evaluation as well. The patient's blood work is obtained and reviewed. She has a leukocytosis, but I am not convinced of an infectious etiology. Her CMP is unremarkable. Her UA showed leukocyte esterase, WBCs and bacteria. She may have a UTI in addition to an alternative pathology. This should be treated in the hospital. The patient received a CT of the abdomen and pelvis that revealed following per the radiologist: Large loculated fluid collection in the pelvis extending into the mid abdomen is similar or increased in size since previous CT performed January 05, 2017 despite interval drainage. This fluid collection measures up to 21.5 cm. Fluid collection results in obstruction of the right ureter with moderate to severe right hydronephrosis and also results in partial proximal small bowel obstruction. Surgical consultation is advised. If there is concern for a ureteral injury and a urinoma as a cause for this collection, recommend CT IVP. Status post splenectomy. Fluid collection in splenectomy bed is unchanged. Findings were discussed with Dr. Jeremiah Wilkerson by Dr. Krissy Bills on April 01, 2017 at 9:35 PM. Emily Bills Physician Date Time Electronically viewed and signed by Emily Bills, Physician on 04/01/2017 21: 43 The patient received IV fluids, morphine and Zofran in the emergency department which did resolve her pain. However, given the concerns of and bowel obstruction, the patient will be admitted for further evaluation and management. She will likely require IR drainage of the fluid, which should be sent for cytology given her history of lung cancer. The patient was otherwise stable in the ER. Departure Diagnosis: Primary Impression: Abdominal pain Qualified Code: R10.10 - Pain of upper abdomen Condition: JEREMIAH Hines MD Apr 01, 2017 18:28
[2017-04-01 19:14] VITALS: TEMP 97.9
[2017-04-01 19:14] LABS: BASOPHILS % 0.2 % (0.0-2.0); HEMATOCRIT 27.5 % (37.0-47.0); HEMOGLOBIN 9.3 g/dl (12.0-16.0); LYMPHOCYTES # 1.6 10^3/ul (0.8-2.9); MEAN CORPUSCULAR HEMOGLOBIN 32.9 pg (29.0-33.0); MEAN CORPUSCULAR HGB CONC 33.8 g/dl (32.0-37.0); MEAN CORPUSCULAR VOLUME 97.2 fl (82.0-101.0); MEAN PLATELET VOLUME 9.5 fl (7.4-10.4); MONOCYTE # 0.5 10^3/ul (0.3-0.9); MONOCYTES % 4.6 % (0.0-11.0); NEUTROPHILS % 79.5 % (39.0-77.0); NUCLEATED RED BLOOD CELLS # 0.1 10^3/ul (0.0-0.0); NUCLEATED RED BLOOD CELLS% 0.4 /100WBC (0.0-0.0); PLATELET COUNT 241 10^3/UL (140-415); RED BLOOD COUNT 2.83 10^6/ul (4.20-5.40); RED CELL DISTRIBUTION WIDTH 19.5 % (11.5-14.5); WHITE BLOOD COUNT 11.5 10^3/ul (4.8-10.8)
[2017-04-01 19:34] LABS: ALBUMIN 3.6 g/dl (3.3-4.9); ALBUMIN/GLOBULIN RATIO 0.85; BILIRUBIN,INDIRECT 0.2 mg/dl (0-1.1); BILIRUBIN,TOTAL 0.2 mg/dl (0.2-1.3); CALCIUM 8.6 mg/dl (8.4-10.2); CREATININE 0.68 mg/dl (0.44-1.00); POTASSIUM 3.7 mmol/L (3.5-5.1); TOTAL PROTEIN 7.8 g/dl (6.1-8.1)
[2017-04-01 19:46] LABS: ADD UMIC YES; UR ASCORBIC ACID 40 mg/dL (NEGATIVE); UR BACTERIA FEW /HPF (NONE SEEN); UR BILIRUBIN (Dip) NEGATIVE (NEGATIVE); UR BLOOD (Dip) NEGATIVE (NEGATIVE); UR CLARITY SLIGHTLY CLOUDY (CLEAR); UR COLOR YELLOW (YELLOW); UR GLUCOSE (Dip) NEGATIVE (NEGATIVE); UR KETONES (Dip) NEGATIVE (NEGATIVE); UR LEUKOCYTE ESTERASE (Dip) TRACE Leu/ul (NEGATIVE); UR MUCUS FEW /HPF (NONE SEEN); UR NITRITE (Dip) NEGATIVE (NEGATIVE); UR RBC 1 /HPF (0-5); UR SPECIFIC GRAVITY (Dip) 1.017 (1.003-1.030); UR SQUAMOUS EPITHELIAL CELL FEW /HPF (FEW); UR TOTAL PROTEIN (Dip) 1+ mg/dl (NEGATIVE); UR UROBILINOGEN (Dip) NEGATIVE (NEGATIVE)
--- NOTE | 2017-04-01 21:44 | RADRPT ---
AMENDMENT: 04/07/2017 10:52:10 PM Krissy Bills M.D One or more of the following dose reduction techniques were used: - Automated exposure control. - Adjustment of the mA and/or kV according to patient size. - Use of iterative reconstruction technique. PROCEDURE: CT ABDOMEN AND PELVIS WITHOUT CONTRAST: CLINICAL INDICATION: 56 years of age, female, abdominal pain . COMPARISON: CT abdomen pelvis January 05, 2017 and aspiration procedure January 09, 2017 TECHNIQUE: CT of the abdomen and pelvis was performed without intravenous contrast. Oral contrast wa s not administered prior to the examination. Coronal and sagittal reformatted images were obtained from the axial source images. Images were revi ewed on a high-resolution PACS workstation. Dose information: Based on a 32 cm phantom, the estimated radiation dose (CTDI vol mGy) for each ser ies in this exam is 8.2. The estimated cumulative dose (DLP mGy-cm) is 445. FINDINGS: In the absence of intravenous contrast, the study constitutes a limited assessment of the solid orga ns, bowel and vessels. LUNG BASES: There are nonspecific ground-glass opacities at the lung bases that may be due to low marco ng volumes. ABDOMEN/PELVIS: Liver: Normal noncontrast appearance. 1.6 cm subcapsular fluid collection overlying the superior med ial left lobe beneath the diaphragm is similar to prior exam (10/25). Otherwise normal. Gallbladder: Status post cholecystectomy. Bile ducts: No intrahepatic or extrahepatic biliary duct dilatation. Spleen: Status post splenectomy. 3.3 x 3.8 cm fluid collection in the splenectomy bed is unchanged. Pancreas: Normal noncontrast appearance. Adrenal glands: Normal noncontrast appearance. Kidneys and ureters: There is moderate to severe right hydronephrosis and hydroureter that has incre ased from prior exam. Zone of transition from dilated ureter to a collapsed ureter is the large flu id collection in the inferior abdomen. Negative for left hydronephrosis. Kidneys are normal size. Aorta and IVC: Atherosclerosis aorta. No aneurysm. Lymph nodes: Normal noncontrast appearance. Gastrointestinal tract: There are dilated loops of small bowel in the left upper quadrant measuring up to 3.8 cm concerning for a partial small bowel obstruction due to loculated fluid collection in t he lower abdomen. Stomach is decompressed. Distal duodenum is dilated to 2.7 cm. Distal small bow el is decompressed. Colon is decompressed. Appendix: Normal Bladder: Normal noncontrast appearance. Pelvic Organs: Uterus and ovaries are not visualized. Peritoneal cavity: Loculated fluid collection in the pelvis extending into the mid abdomen is similar or increased in s ize since January 05, 2017 despite interval drainage. It measures 12.2 x 21.5 cm in transverse diameter and 14.4 cm in height and previously measured 6.4 x 17.1 cm in transverse diameter and 17.7 cm in h eight. Negative for internal gas. Internal contents are low-attenuation. Negative for free intraperitoneal air. Abdominal wall: Postsurgical changes anterior abdominal wall. Mild body wall edema. BONES: Musculoskeletal: Degenerative changes in spine greatest at L5-S1. No suspicious bone lesions. IMPRESSION: Large loculated fluid collection in the pelvis extending into the mid abdomen is similar or increase d in size since previous CT performed January 05, 2017 despite interval drainage. This fluid collection measures up to 21.5 cm. Fluid collection results in obstruction of the right ureter with moderate t o severe right hydronephrosis and also results in partial proximal small bowel obstruction. Surgical consultation is advised. If there is concern for a ureteral injury and a urinoma as a cause for thi s collection, recommend CT IVP. Status post splenectomy. Fluid collection in splenectomy bed is unchanged. Findings were discussed with Dr. Vincenzo Wilkerson by Dr. Krissy Bills on April 01, 2017 at 9:35 PM. RPTAT: HCTS Physician Alban Date Time Electronically viewed and signed by Physician Alban on 04/07/2017 22:53 /
[2017-04-01] MEDS ORDERED: ACETAMINOPHEN 325 MG TAB PO PRN (23:00)
[2017-04-01] MEDS ORDERED: ONDANSETRON 4 MG INJ IV PRN (23:00)
--- NOTE | 2017-04-01 23:13 | HP ---
Date/Time of Note Date/Time of Note DATE: 04/01/17 TIME: 23:13 Assessment/Plan VTE Prophylaxis VTE Prophylaxis Intervention: heparin Assessment/Plan Assessment/Plan This is a 56-year-old female with a history of metastatic ovarian cancer on chemotherapy who presented with abdominal pain nausea vomiting managed for the following 1. 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 Right ureteral obstruction with moderate to severe right-sided hydronephrosis 3. Partial small bowel obstruction 4. Abdominal pain nausea vomiting which is likely secondary to the above 5. Probable urinary tract infection 6. Leukocytosis likely secondary to be above 7. Status post TRACY, BSO, omentectomy and splenectomy Plan: Admit patient for symptom control, n.p.o., IV fluids, antiemetics and pain medicine Interventional radiology consult for repeat drainage of pelvic fluid Please note that prior pelvic ascitic fluid analysis was negative on cultures and cytology was also negative for malignant cells Surgical consult with Dr. Pierce and will follow his recommendation Oncology consultation with Dr. Mansfield Further interventions per clinical course Plan of care has been discussed with patient in detail Prophylaxis: Heparin/Pepcid HPI/ROS Admit Date/Time Admit Date/Time 04/01/17 Hx of Present Illness This is a 56-year-old female who presents to emergency room today with a 3 day history of abdominal pain, nausea and vomiting that has been worsening in that time. She has a history of metastatic ovarian cancer and she is actively on chemotherapy. Her treatment course has been complicated by pelvic ascites as well as severe anemia. She has been admitted here a few times for different reasons and back in January she had interventional drainage of the ascites and the fluid was sent for cultures as well as cytology; both of which came back negative. She was discharged with a drain which was removed as an outpatient. She was later admitted for severe anemia transfused and sent home in stable condition. At this time she presents again with abdominal pain with nausea vomiting and a CT scan of the abdomen is showing recollection of the pelvic fluid and is extended to the mid abdomen causing right ureteral obstruction as well as partial small bowel obstruction likely causing her symptoms. She will need to be admitted for symptom control and repeat drainage of this fluid. Most likely this fluid is malignant, but as mentioned earlier cytology was negative on the last visit. ROS 12 point review if systems was done and pertinent findings are as noted. Constitutional: No febrile ENT: No sore throat Respiratory: No shortness of breath Cardiovascular: No chest pain Genitourinary: No bleeding, No dysuria, No hematuria Neurologic: No confusion, No focal-weakness, No headache, No seizure PMH/Family/Social Past Medical History * Metastatic ovarian cancer on chemotherapy since December 2016 * Ascites that was thought to be malignant * Recent admission for severe anemia Past Surgical History * Total abdominal hysterectomy with bilateral salpingo-oophorectomy, splenectomy and omentectomy * Recent IR drainage of abdominal fluid collection with drain placement Family History Significant Family History: no pertinent family hx Social History Alcohol Use: none Smoking Status: Never smoker Exam/Review of Systems Vital Signs Vitals Vital Signs Date Time Temp Pulse Resp B/P Pulse Ox O2 Delivery O2 Flow Rate FiO2 04/01/17 19:14 97.9 71 20 158/71 99 Room Air Exam Exam Constitutional: alert, oriented Head: atraumatic, normocephalic Neck: non-tender, supple Respiratory: clear to auscultation Cardiovascular: regular rate and rhythm Gastrointestinal: Extremities: no edema, good radial pulses Labs Result Diagram: 04/01/170 04/01/171899 Procedures Procedures Laboratory Tests Test 04/01/17 17:55 04/01/17 19:00 Urine Color YELLOW Urine Clarity SLIGHTLY CLOUDY Urine pH 5.0 Urine Specific [place] 1.017 Urine Ketones NEGATIVEmg/dL Urine Nitrite NEGATIVEmg/dL Urine Bilirubin NEGATIVEmg/dL Urine Urobilinogen NEGATIVEmg/dL Urine Leukocyte Esterase TRACELeu/ul Urine Microscopic RBC 1/HPF Urine Microscopic WBC 14/HPF Urine Squamous Epithelial Cells FEW/HPF Urine Bacteria FEW/HPF Urine Mucus FEW/HPF Urine Hemoglobin NEGATIVEmg/dL Urine Glucose NEGATIVEmg/dL Urine Total Protein 1+mg/dl White Blood Count 11.510^3/ul Red Blood Count 2.8310^6/ul Hemoglobin 9.3g/dl Hematocrit 27.5% Mean Corpuscular Volume 97.2fl Mean Corpuscular Hemoglobin 32.9pg Mean Corpuscular Hemoglobin Concent 33.8g/dl Red Cell Distribution Width 19.5% Platelet Count 98811^3/UL Mean Platelet Volume 9.5fl Neutrophils % 79.5% Lymphocytes % 14.0% Monocytes % 4.6% Eosinophils % 0.0% Basophils % 0.2% Nucleated Red Blood Cells % 0.4/100WBC Neutrophils # (Manual) 9.110^3/ul Lymphocytes # 1.610^3/ul Monocytes # 0.510^3/ul Eosinophils # 0.010^3/ul Basophils # 0.010^3/ul Nucleated Red Blood Cells # 0.110^3/ul Sodium Level 146mmol/L Potassium Level 3.7mmol/L Chloride Level 102mmol/L Carbon Dioxide Level 29mmol/L Anion Gap 19 Blood Urea Nitrogen 14mg/dl Creatinine 0.68mg/dl Glucose Level 121mg/dl Calcium Level 8.6mg/dl Total Bilirubin 0.2mg/dl Direct Bilirubin 0.00mg/dl Indirect Bilirubin 0.2mg/dl Aspartate Amino Transf (AST/SGOT) 21IU/L Alanine Aminotransferase (ALT/SGPT) 19IU/L Alkaline Phosphatase 85IU/L Total Protein 7.8g/dl Albumin 3.6g/dl Globulin 4.20g/dl Albumin/Globulin Ratio 0.85 Lipase 74U/L Current Medications Medications (Trade) Dose Ordered Sig/Daryn Route PRN Reason Start Time Stop Time Status Last Admin Dose Admin Sodium Chloride (NS) 1,000 ml @ 1,000 mls/hr Q1H STAT IV 04/01/17 18:15 04/01/17 19:14 DC 04/01/17 18:39 Morphine Sulfate (morphine) 4 mg ONCE STAT IV 04/01/17 18:15 04/01/17 18:18 DC 04/01/17 18:39 Ondansetron HCl (Zofran Inj) 4 mg ONCE STAT IV 04/01/17 18:15 04/01/17 18:18 DC 04/01/17 18:39 Ondansetron HCl (Zofran Inj) 4 mg BRIDGE ORDER PRN IV NAUSEA AND/OR VOMITING 04/01/17 23:00 04/02/17 22:59 Acetaminophen (Tylenol Tab) 650 mg ER BRIDGE PRN PO MILD PAIN/FEVER 04/01/17 23:00 04/02/17 22:59 PROCEDURE: CT ABDOMEN AND PELVIS WITHOUT CONTRAST: CLINICAL INDICATION: 56 years of age, female, abdominal pain . COMPARISON: CT abdomen pelvis January 05, 2017 and aspiration procedure January 09, 2017 TECHNIQUE: CT of the abdomen and pelvis was performed without intravenous contrast. Oral contrast was not administered prior to the examination. Coronal and sagittal reformatted images were obtained from the axial source images. Images were reviewed on a high-resolution PACS workstation. Dose information: Based on a 32 cm phantom, the estimated radiation dose (CTDI vol mGy) for each series in this exam is 8.2. The estimated cumulative dose ( DLP mGy-cm) is 445. FINDINGS: In the absence of intravenous contrast, the study constitutes a limited assessment of the solid organs, bowel and vessels. LUNG BASES: There are nonspecific ground-glass opacities at the lung bases that may be due to low lung volumes. ABDOMEN/PELVIS: Liver: Normal noncontrast appearance. 1.6 cm subcapsular fluid collection overlying the superior medial left lobe beneath the diaphragm is similar to prior exam (10/25). Otherwise normal. Gallbladder: Status post cholecystectomy. Bile ducts: No intrahepatic or extrahepatic biliary duct dilatation. Spleen: Status post splenectomy. 3.3 x 3.8 cm fluid collection in the splenectomy bed is unchanged. Pancreas: Normal noncontrast appearance. Adrenal glands: Normal noncontrast appearance. Kidneys and ureters: There is moderate to severe right hydronephrosis and hydroureter that has increased from prior exam. Zone of transition from dilated ureter to a collapsed ureter is the large fluid collection in the inferior abdomen. Negative for left hydronephrosis. Kidneys are normal size. Aorta and IVC: Atherosclerosis aorta. No aneurysm. Lymph nodes: Normal noncontrast appearance. Gastrointestinal tract: There are dilated loops of small bowel in the left upper quadrant measuring up to 3.8 cm concerning for a partial small bowel obstruction due to loculated fluid collection in the lower abdomen. Stomach is decompressed. Distal duodenum is dilated to 2.7 cm. Distal small bowel is decompressed. Colon is decompressed. Appendix: Normal Bladder: Normal noncontrast appearance. Pelvic Organs: Uterus and ovaries are not visualized. Peritoneal cavity: Loculated fluid collection in the pelvis extending into the mid abdomen is similar or increased in size since January 05, 2017 despite interval drainage. It measures 12.2 x 21.5 cm in transverse diameter and 14.4 cm in height and previously measured 6.4 x 17.1 cm in transverse diameter and 17.7 cm in height. Negative for internal gas. Internal contents are low-attenuation. Negative for free intraperitoneal air. Abdominal wall: Postsurgical changes anterior abdominal wall. Mild body wall edema. BONES: Musculoskeletal: Degenerative changes in spine greatest at L5-S1. No suspicious bone lesions. IMPRESSION: Large loculated fluid collection in the pelvis extending into the mid abdomen is similar or increased in size since previous CT performed January 05, 2017 despite interval drainage. This fluid collection measures up to 21.5 cm. Fluid collection results in obstruction of the right ureter with moderate to severe right hydronephrosis and also results in partial proximal small bowel obstruction. Surgical consultation is advised. If there is concern for a ureteral injury and a urinoma as a cause for this collection, recommend CT IVP. Status post splenectomy. Fluid collection in splenectomy bed is unchanged. RPTAT: HCTS Physician Alban Date Time Electronically viewed and signed by Physician Alban on 04/01/2017 21: 43 JYOTHI BENAVIDES Apr 01, 2017 23:13
[2017-04-02 01:14] VITALS: BP 162/74; PULSE 66; RESP 20; Ht 160 cm; Wt 61.5 kg
[2017-04-02] MEDS ORDERED: ONDANSETRON 4 MG INJ IV PRN (01:30)
[2017-04-02] MEDS ORDERED: ACETAMINOPHEN 325 MG TAB PO PRN (01:30)
[2017-04-02] MEDS ORDERED: CEFTRIAXONE 1 GM/50 ML (PMX) 50 ML IVPB ONE (01:59)
[2017-04-02] MEDS: DEXTROSE 5%-0.45% NACL 1,000 ML IV SCH ×3 (02:00→23:19)
[2017-04-02] MEDS: CEFTRIAXONE 1 GM/50 ML (PMX) 50 ML IVPB SCH (02:55)
[2017-04-02] MEDS: morphine 4 MG/ML VIAL IV PRN ×3 (02:56→20:43)
[2017-04-02 05:37] LABS: BASOPHILS % 0.2 % (0.0-2.0); EOSINOPHILS % 0.1 % (0.0-7.0); HEMATOCRIT 28.3 % (37.0-47.0); HEMOGLOBIN 9.2 g/dl (12.0-16.0); LYMPHOCYTES # 2.1 10^3/ul (0.8-2.9); MEAN CORPUSCULAR HEMOGLOBIN 32.1 pg (29.0-33.0); MEAN CORPUSCULAR HGB CONC 32.5 g/dl (32.0-37.0); MEAN CORPUSCULAR VOLUME 98.6 fl (82.0-101.0); MEAN PLATELET VOLUME 9.7 fl (7.4-10.4); MONOCYTE # 0.6 10^3/ul (0.3-0.9); MONOCYTES % 6.3 % (0.0-11.0); NEUTROPHILS % 69.4 % (39.0-77.0); NUCLEATED RED BLOOD CELLS # 0.1 10^3/ul (0.0-0.0); NUCLEATED RED BLOOD CELLS% 0.7 /100WBC (0.0-0.0); PLATELET COUNT 240 10^3/UL (140-415); RED BLOOD COUNT 2.87 10^6/ul (4.20-5.40); RED CELL DISTRIBUTION WIDTH 19.7 % (11.5-14.5); WHITE BLOOD COUNT 8.9 10^3/ul (4.8-10.8)
[2017-04-02 05:51] LABS: INR 1.07; PROTIME 13.9 Sec (12.2-14.2); PT RATIO 1.1
[2017-04-02 05:52] LABS: PARTIAL THROMBOPLASTIN TIME 25.5 Sec (25.0-35.0)
[2017-04-02] MEDS: HEPARIN 5,000 UNIT/0.5 ML VIAL SC SCH ×3 (06:02→21:36)
[2017-04-02 06:20] LABS: CALCIUM 8.7 mg/dl (8.4-10.2); CREATININE 0.6 mg/dl (0.44-1.00); POTASSIUM 3.9 mmol/L (3.5-5.1)
[2017-04-02 07:59] VITALS: BP 115/72; RESP 18
[2017-04-02] MEDS: DOCUSATE SODIUM 100 MG CAP PO SCH ×2 (09:51→20:42)
[2017-04-02] MEDS: FAMOTIDINE 20 MG INJ IV SCH ×2 (09:51→20:42)
[2017-04-02] MEDS ORDERED: MAGNESIUM SULFATE 4 GM/100 ML 100 ML IVPB ONE (11:30)
[2017-04-02 14:57] VITALS: BP 128/70; RESP 19
--- NOTE | 2017-04-02 15:10 | PN ---
Date/Time of Note Date/Time of Note DATE: 04/02/17 TIME: 15:05 Assessment/Plan VTE Prophylaxis VTE Prophylaxis Intervention: SCD's Lines/Catheters IV Catheter Type (from Nrs): PAC Assessment/Plan Chief Complaint/Hosp Course 1. History of ovarian cancer with recurrent pelvic ascites causing #2 and 3 with abdominal pain -CT-guided drainage with IR today -Gynecology oncology consultation -Consultation with oncology appreciated, patient is receiving chemotherapy as an outpatient 2. Right ureteral obstruction with moderate to severe right-sided hydronephrosis 3. Partial small bowel obstruction 4. Status post TRACY, BSO, omentectomy and splenectomy 5. Probable urinary tract infection -Continue Rocephin IV, follow-up on urine culture 6. Leukocytosis likely secondary to be above Prophylaxis: SCDs Problems: Subjective 24 Hr Interval Summary Gastrointestinal: pain Exam/Review of Systems Vital Signs Vitals Vital Signs Date Time Temp Pulse Resp B/P Pulse Ox O2 Delivery O2 Flow Rate FiO2 04/02/17 14:57 98.1 69 19 128/70 99 04/02/17 01:14 Room Air Intake and Output 04/01/17 04/01/17 04/02/17 15:00 23:00 07:00 Intake Total 300 ml Output Total 750 ml Balance -450 ml Exam Constitutional: alert Respiratory: clear to auscultation Cardiovascular: regular rate and rhythm Gastrointestinal: distended, soft, tender Musculoskeletal: nl extremities to inspection Results Result Diagram: 04/02/17 0425 04/02/17 0425 Results 24 hrs Laboratory Tests Test 04/01/17 17:55 04/01/17 19:00 04/02/17 04:25 Urine Color YELLOW Urine Clarity SLIGHTLY CLOUDY A Urine pH 5.0 Urine Specific [place] 1.017 Urine Ketones NEGATIVE Urine Nitrite NEGATIVE Urine Bilirubin NEGATIVE Urine Urobilinogen NEGATIVE Urine Leukocyte Esterase TRACE A Urine Microscopic RBC 1 Urine Microscopic WBC 14 H Urine Squamous Epithelial Cells FEW Urine Bacteria FEW A Urine Mucus FEW A Urine Hemoglobin NEGATIVE Urine Glucose NEGATIVE Urine Total Protein 1+ H White Blood Count 11.5 #H 8.9 # Red Blood Count 2.83 L 2.87 L Hemoglobin 9.3 L 9.2 L Hematocrit 27.5 L 28.3 L Mean Corpuscular Volume 97.2 98.6 Mean Corpuscular Hemoglobin 32.9 32.1 Mean Corpuscular Hemoglobin Concent 33.8 32.5 Red Cell Distribution Width 19.5 H 19.7 H Platelet Count 241 240 Mean Platelet Volume 9.5 9.7 Neutrophils % 79.5 H 69.4 Lymphocytes % 14.0 L 23.0 Monocytes % 4.6 6.3 Eosinophils % 0.0 0.1 Basophils % 0.2 0.2 Nucleated Red Blood Cells % 0.4 H 0.7 H Neutrophils # (Manual) 9.1 H 6.2 Lymphocytes # 1.6 2.1 Monocytes # 0.5 0.6 Eosinophils # 0.0 0.0 Basophils # 0.0 0.0 Nucleated Red Blood Cells # 0.1 H 0.1 H Sodium Level 146 H 148 H Potassium Level 3.7 3.9 Chloride Level 102 103 Carbon Dioxide Level 29 32 H Anion Gap 19 H 17 H Blood Urea Nitrogen 14 12 Creatinine 0.68 0.60 Glucose Level 121 110 Calcium Level 8.6 8.7 Total Bilirubin 0.2 Direct Bilirubin 0.00 Indirect Bilirubin 0.2 Aspartate Amino Transf (AST/SGOT) 21 Alanine Aminotransferase (ALT/SGPT) 19 Alkaline Phosphatase 85 Total Protein 7.8 Albumin 3.6 Globulin 4.20 H Albumin/Globulin Ratio 0.85 Lipase 74 Prothrombin Time 13.9 Prothrombin Time Ratio 1.1 INR International Normalized Ratio 1.07 Activated Partial Thromboplast Time 25.5 Magnesium Level 1.0 L Medications Medications Current Medications Dextrose/Sodium Chloride (D5-1/2ns) 1,000 ml @ 100 mls/hr Q10H IV Last administered on 04/02/17 12:39; Admin Dose 100 MLS/HR; Start 04/02/17 at 01:30 Famotidine (Pepcid Iv) 20 mg BID IV Last administered on 04/02/17 09:51; Admin Dose 20 MG; Start 04/02/17 at 09:00 Heparin Sodium (Porcine) (Heparin (5000 Units/0.5 ml)) 5,000 unit Q8 SC Last administered on 04/02/17 06:02; Admin Dose 5,000 UNIT; Start 04/02/17 at 06:00 Docusate Sodium (Colace) 100 mg BID PO Last administered on 04/02/17 09:51; Admin Dose 100 MG; Start 04/02/17 at 09:00 Morphine Sulfate (morphine) 3 mg Q4H PRN IV pain Last administered on 06:01; Admin Dose 3 MG; Start 04/02/17 at 01:30 Ondansetron HCl (Zofran Inj) 4 mg Q6H PRN IV NAUSEA AND/OR VOMITING; Start at 01:30 Acetaminophen 650 mg 650 mg Q6H PRN PO PAIN AND OR ELEVATED TEMP; Start at 01:30 Ceftriaxone Sodium 50 ml @ 100 mls/hr Q24H IVPB Last administered on 02:55; Admin Dose 100 MLS/HR; Start 04/02/17 at 02:00 Magnesium Sulfate (Magnesium Sulfate 4 Gm/100 ml) 100 ml @ 25 mls/hr ONCE ONCE IVPB Last administered on 04/02/17 12:39; Admin Dose 25 MLS/HR; Start at 11:30; Stop 04/02/17 at 15:29 YVONNE BENSON Apr 02, 2017 15:10
[2017-04-02 19:48] VITALS: BP 149/70; RESP 16
--- NOTE | 2017-04-02 21:17 | CONS ---
Date/Time of Note Date/Time of Note DATE: 04/02/17 TIME: 21:16 Consultation Date/Type/Reason Admit Date/Time 04/01/17 Hx of Present Illness Kenan Martínez M.D. 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 CT suggested luculated collections and of note this has happened other times with drainage with a declining CA-125 Medical history/ROS: all other systems unremarkable. Surgical history: priCRS Medications: reviewed gardisil Colonoscopy Allergies: No active allergies recorded Family history: unremarkable. Social history: no identified high-risk categories. Review of Systems: Negative except for above noted Physical Examination General: Alert. HEENT: Pupils are equal, round, reactive to light and accommodation. Neck: Supple with no masses of lymphadenopathy. Breast: Deferred due to recent examination and responsibility of primary care physician. Chest: Clear to auscultation and percussion with no rales, rhonchi, or wheeze. Heart: Normal rhythm with no murmur. Abdominal Exam: normal, soft, distended with a suggetion of some ascites vs other collection lower abdomen, mildly tender with no rebound, nl bowel sounds. Pelvic exam: no mass nor nodularity Rectal: deferred. Neurological: Grossly intact Ext: NT mild edema Assessment: Based on prior admission and current status likely pancreatic pseudocyst, lymphocyst or loculated ascites. Plan: Agree CT and drain collections (and culture and cytology, although false -common) Kenan Martínez M.D. ENT: No sore throat Respiratory: No shortness of breath Cardiovascular: No chest pain Gastrointestinal: pain Genitourinary: No bleeding, No dysuria, No hematuria Neurologic: No confusion, No focal-weakness, No headache, No seizure Social History Alcohol Use: none Smoking Status: Never smoker Exam/Review of Systems Vital Signs Vitals Vital Signs Date Time Temp Pulse Resp B/P Pulse Ox O2 Delivery O2 Flow Rate FiO2 04/02/17 19:48 97.8 68 16 149/70 100 04/02/17 01:14 Room Air Intake and Output 04/01/17 04/01/17 04/02/17 15:00 23:00 07:00 Intake Total 300 ml Output Total 750 ml Balance -450 ml Results Result Diagram: 04/02/17 0425 04/02/17 0425 Results 24 hrs Laboratory Tests Test 04/02/17 04:25 White Blood Count 8.9 # Red Blood Count 2.87 L Hemoglobin 9.2 L Hematocrit 28.3 L Mean Corpuscular Volume 98.6 Mean Corpuscular Hemoglobin 32.1 Mean Corpuscular Hemoglobin Concent 32.5 Red Cell Distribution Width 19.7 H Platelet Count 240 Mean Platelet Volume 9.7 Neutrophils % 69.4 Lymphocytes % 23.0 Monocytes % 6.3 Eosinophils % 0.1 Basophils % 0.2 Nucleated Red Blood Cells % 0.7 H Neutrophils # (Manual) 6.2 Lymphocytes # 2.1 Monocytes # 0.6 Eosinophils # 0.0 Basophils # 0.0 Nucleated Red Blood Cells # 0.1 H Prothrombin Time 13.9 Prothrombin Time Ratio 1.1 INR International Normalized Ratio 1.07 Activated Partial Thromboplast Time 25.5 Sodium Level 148 H Potassium Level 3.9 Chloride Level 103 Carbon Dioxide Level 32 H Anion Gap 17 H Blood Urea Nitrogen 12 Creatinine 0.60 Glucose Level 110 Calcium Level 8.7 Magnesium Level 1.0 L Medications Medications Current Medications Dextrose/Sodium Chloride (D5-1/2ns) 1,000 ml @ 100 mls/hr Q10H IV Last administered on 04/02/17 12:39; Admin Dose 100 MLS/HR; Start 04/02/17 at 01:30 Famotidine (Pepcid Iv) 20 mg BID IV Last administered on 04/02/17 20:42; Admin Dose 20 MG; Start 04/02/17 at 09:00 Heparin Sodium (Porcine) (Heparin (5000 Units/0.5 ml)) 5,000 unit Q8 SC Last administered on 04/02/17 06:02; Admin Dose 5,000 UNIT; Start 04/02/17 at 06:00 Docusate Sodium (Colace) 100 mg BID PO Last administered on 04/02/17 20:42; Admin Dose 100 MG; Start 04/02/17 at 09:00 Morphine Sulfate (morphine) 3 mg Q4H PRN IV pain Last administered on 20:43; Admin Dose 3 MG; Start 04/02/17 at 01:30 Ondansetron HCl (Zofran Inj) 4 mg Q6H PRN IV NAUSEA AND/OR VOMITING; Start at 01:30 Acetaminophen 650 mg 650 mg Q6H PRN PO PAIN AND OR ELEVATED TEMP; Start at 01:30 Ceftriaxone Sodium (Rocephin) 50 ml @ 100 mls/hr Q24H IVPB Last administered on 04/02/17 02:55; Admin Dose 100 MLS/HR; Start 04/02/17 at 02:00 KENAN MARTÍNEZ MD Apr 02, 2017 21:17
--- NOTE | 2017-04-02 22:08 | CONS ---
Date/Time of Note Date/Time of Note DATE: 04/02/17 TIME: 21:36 Assessment/Plan Assessment/Plan Chief Complaint/Hosp Course 56 yo female with malignant ascites who has since been diagnosed with FIGO stage III ovarian cancer. Pt is currently on chemotherapy, cycle 1 day 8 was given on 03/29. Pt now presents with abdominal pain and was found with a large fluid collection. #Loculated abdominal fluid - larger than on last admission, measuring up to 22. cm --IR guided drainage pending -cytology, culture, other studies ordered. will followup -defer to surgery for management of fluid collection # ovarian ca, papillary serous , FIGO stage IIIc - once pt is stable from an infection standpoint, will resume chemotherapy -can potentially give next dose in hospital depending on status of drainage and fluid collection #Leukocytosis - I believe this is likely secondary to her splenectomy as well as her active infection -pt WBC count has improved and is now within normal limits Approximately 40 min were spent at patient's bedside and in coordination of her care Problems: (1) Disseminated ovarian cancer Qualifiers: Qualified Code: C56.9 - Disseminated malignant neoplasm of ovary, unspecified laterality (2) Abdominal pain Status: Acute Qualifiers: Qualified Code: R10.10 - Pain of upper abdomen (3) Abdominal fluid collection Status: Acute Consultation Date/Type/Reason Admit Date/Time 04/01/17 Date of Consultation: Apr 02, 2017 Type of Consultation: Oncology Reason for Consultation metastatic ovarian cancer Referring Provider: YVONNE BENSON Hx of Present Illness 56 yo female who first presented to [facility] in 11/2016 when she was diagnosed with FIGO stage IIIC ovarian cancer. The patient underwent optimal debulking surgery with Dr. Garcia where an 8.5cm tumor in the right ovary, 1.2cm tumor in left ovary, and 1.5cm tumor in left fallopian tube were removed. The disease was noted to involve her omentum, spleen, uterus, cervix and diaphragm. The patient is currently receiving carboplatin and taxol in our office. Pt received cycle 4 day 8 of carboplatin / Taxol on 03/29. PT is now admitted for abdominal pain. CT A/P was done which reveals Large loculated fluid collection in the pelvis extending into the mid abdomen measuring up to 21.5cm. Fluid collection is causing obstruction of the right ureter and partial proximal SBO. Pt has been seen by Dr. Garcia who recommends drainage of fluid collection. Constitutional: other (with abdomoinal pain) Eyes: no complaints ENT: no complaints, No sore throat Respiratory: No shortness of breath Cardiovascular: No chest pain Gastrointestinal: pain Genitourinary: No bleeding, No dysuria, No hematuria Neurologic: No confusion, No focal-weakness, No headache, No seizure Past Medical History * Metastatic ovarian cancer on chemotherapy since December 2016 * Ascites that was thought to be malignant Past Surgical History * Total abdominal hysterectomy with bilateral salpingo-oophorectomy, splenectomy and omentectomy * Recent IR drainage of abdominal fluid collection with drain placement Family History Significant Family History: no pertinent family hx Social History Alcohol Use: none Smoking Status: Never smoker Drug Use: none Exam/Review of Systems Vital Signs Vitals Vital Signs Date Time Temp Pulse Resp B/P Pulse Ox O2 Delivery O2 Flow Rate FiO2 04/02/17 19:48 97.8 68 16 149/70 100 04/02/17 01:14 Room Air Intake and Output 04/01/17 04/01/17 04/02/17 15:00 23:00 07:00 Intake Total 300 ml Output Total 750 ml Balance -450 ml Exam Constitutional: alert Psych: nl mood/affect, no complaints Head: normocephalic ENMT: nl external ears & nose Neck: non-tender, supple Respiratory: clear to auscultation Cardiovascular: regular rate and rhythm Gastrointestinal: soft, surgical scars, tender Musculoskeletal: nl extremities to inspection Results Result Diagram: 04/02/17 0425 04/02/17 0425 Results 24 hrs Laboratory Tests Test 04/02/17 04:25 White Blood Count 8.9 # Red Blood Count 2.87 L Hemoglobin 9.2 L Hematocrit 28.3 L Mean Corpuscular Volume 98.6 Mean Corpuscular Hemoglobin 32.1 Mean Corpuscular Hemoglobin Concent 32.5 Red Cell Distribution Width 19.7 H Platelet Count 240 Mean Platelet Volume 9.7 Neutrophils % 69.4 Lymphocytes % 23.0 Monocytes % 6.3 Eosinophils % 0.1 Basophils % 0.2 Nucleated Red Blood Cells % 0.7 H Neutrophils # (Manual) 6.2 Lymphocytes # 2.1 Monocytes # 0.6 Eosinophils # 0.0 Basophils # 0.0 Nucleated Red Blood Cells # 0.1 H Prothrombin Time 13.9 Prothrombin Time Ratio 1.1 INR International Normalized Ratio 1.07 Activated Partial Thromboplast Time 25.5 Sodium Level 148 H Potassium Level 3.9 Chloride Level 103 Carbon Dioxide Level 32 H Anion Gap 17 H Blood Urea Nitrogen 12 Creatinine 0.60 Glucose Level 110 Calcium Level 8.7 Magnesium Level 1.0 L Medications Medications Current Medications Dextrose/Sodium Chloride (D5-1/2ns) 1,000 ml @ 100 mls/hr Q10H IV Last administered on 04/02/17 12:39; Admin Dose 100 MLS/HR; Start 04/02/17 at 01:30 Famotidine (Pepcid Iv) 20 mg BID IV Last administered on 04/02/17 20:42; Admin Dose 20 MG; Start 04/02/17 at 09:00 Heparin Sodium (Porcine) (Heparin (5000 Units/0.5 ml)) 5,000 unit Q8 SC Last administered on 04/02/17 06:02; Admin Dose 5,000 UNIT; Start 04/02/17 at 06:00 Docusate Sodium (Colace) 100 mg BID PO Last administered on 04/02/17 20:42; Admin Dose 100 MG; Start 04/02/17 at 09:00 Morphine Sulfate (morphine) 3 mg Q4H PRN IV pain Last administered on 20:43; Admin Dose 3 MG; Start 04/02/17 at 01:30 Ondansetron HCl (Zofran Inj) 4 mg Q6H PRN IV NAUSEA AND/OR VOMITING; Start at 01:30 Acetaminophen 650 mg 650 mg Q6H PRN PO PAIN AND OR ELEVATED TEMP; Start at 01:30 Ceftriaxone Sodium (Rocephin) 50 ml @ 100 mls/hr Q24H IVPB Last administered on 04/02/17 02:55; Admin Dose 100 MLS/HR; Start 04/02/17 at 02:00 FLORINDA COATES M.D. Apr 02, 2017 21:46
[2017-04-03 01:48] VITALS: BP 104/55; RESP 14
[2017-04-03] MEDS: CEFTRIAXONE 1 GM/50 ML (PMX) 50 ML IVPB SCH (02:18)
[2017-04-03 05:31] LABS: BASOPHILS % 0.3 % (0.0-2.0); EOSINOPHILS % 0.3 % (0.0-7.0); HEMATOCRIT 23.9 % (37.0-47.0); HEMOGLOBIN 7.8 g/dl (12.0-16.0); LYMPHOCYTES # 1.8 10^3/ul (0.8-2.9); LYMPHOCYTES % 49.6 % (15.0-51.0); MEAN CORPUSCULAR HGB CONC 32.6 g/dl (32.0-37.0); MEAN PLATELET VOLUME 9.9 fl (7.4-10.4); MONOCYTE # 0.5 10^3/ul (0.3-0.9); MONOCYTES % 14.1 % (0.0-11.0); NEUTROPHILS % 35.4 % (39.0-77.0); NUCLEATED RED BLOOD CELLS% 1.1 /100WBC (0.0-0.0); PLATELET COUNT 174 10^3/UL (140-415); RED BLOOD COUNT 2.44 10^6/ul (4.20-5.40); RED CELL DISTRIBUTION WIDTH 19.7 % (11.5-14.5); WHITE BLOOD COUNT 3.6 10^3/ul (4.8-10.8)
[2017-04-03 05:56] LABS: CALCIUM 8.4 mg/dl (8.4-10.2); CREATININE 0.6 mg/dl (0.44-1.00); POTASSIUM 3.2 mmol/L (3.5-5.1)
[2017-04-03] MEDS: HEPARIN 5,000 UNIT/0.5 ML VIAL SC SCH ×3 (06:01→21:27)
[2017-04-03] MEDS: morphine 4 MG/ML VIAL IV PRN ×2 (06:06→20:23)
[2017-04-03 07:10] LABS: MAGNESIUM 1.6 mg/dl (1.7-2.5); PHOSPHORUS 3.3 mg/dl (2.5-4.9)
[2017-04-03 08:00] VITALS: BP 134/73; RESP 16
[2017-04-03] MEDS: FAMOTIDINE 20 MG INJ IV SCH ×2 (08:28→20:22)
[2017-04-03] MEDS: DOCUSATE SODIUM 100 MG CAP PO SCH ×2 (08:30→20:22)
[2017-04-03] MEDS: DEXTROSE 5%-0.45% NACL 1,000 ML IV SCH ×2 (08:49→17:30)
[2017-04-03] MEDS ORDERED: FENTAnyl 50 MCG/ML VIAL ONE (10:34)
[2017-04-03] MEDS ORDERED: LIDOCAINE 1% (MDV) 20 ML INJ ONE (10:34)
[2017-04-03] MEDS ORDERED: DIPHENHYDRAMINE 50 MG INJ ONE (10:34)
[2017-04-03] MEDS ORDERED: POTASSIUM CHLORIDE (SR) 20 MEQ TAB PO STA (10:41)
[2017-04-03] MEDS ORDERED: MAGNESIUM SULFATE 3 GM in SOD CHLORIDE 0.9% 100 ML IVPB ONE (12:30)
--- NOTE | 2017-04-03 13:01 | RADRPT ---
PROCEDURE: CT guided abdominal fluid collection drainage. CLINICAL INDICATION: Abdominal and pelvic fluid collection. TECHNIQUE: Informed consent was obtained. The procedure, risks, benefits, complications and alternatives were explained to the patient. Risks including bleeding and infection were explained. The patient underst ood and was willing to proceed. A procedural pause was performed. The patient's name, date of , and procedure to be performed were verified. One or more of the following dose reduction techniq ues were used: Automated exposure control, adjustment of the mA and/or kV according to patient size, use of iterative reconstruction technique. Using local anesthetic, sterile technique and CT guidance, a 19-gauge Yueh needle was advanced into the fluid collection in the right side of the lower abdomen. CT scan was performed confirming posit ion. Serous fluid was also aspirated confirming position. The needle from the Yueh catheter was re moved, leaving the Yueh catheter in place within the fluid collection. A 0.035-inch Amplatz guidewi re was advanced through the Yueh catheter into the fluid collection. The Yueh catheter was removed. The tract was dilated to 8-Bolivian. An 8.5 Bolivian multipurpose drainage catheter was advanced over the guidewire into the fluid collection. The guidewire was removed. Additional scanning was perfo rmed confirming position. The catheter was then sutured to the patient's skin with 2-0 silk. Appro ximately 2180 ml of serous fluid was aspirated. The catheter was connected to a drainage bag. A dr essing was applied. The patient tolerated procedure well. COMPARISON: CT scan of the abdomen and pelvis dated 04/01/2017. FINDINGS: Final images demonstrate the drainage catheter in satisfactory position within the fluid collection. IMPRESSION: 1. Successful CT guided abdominal and pelvic fluid collection drainage. RPTAT: QQ .Willy Mustafa MD, Date Time Electronically viewed and signed by .Willy Mustafa MD, on 04/03/2017 13:01 .R/
[2017-04-03 14:00] VITALS: BP 124/72; RESP 18
--- NOTE | 2017-04-03 14:35 | PN ---
Date/Time of Note Date/Time of Note DATE: 04/03/17 TIME: 14:31 Assessment/Plan VTE Prophylaxis VTE Prophylaxis Intervention: SCD's Lines/Catheters IV Catheter Type (from Nrsg): port Assessment/Plan Chief Complaint/Hosp Course 1. History of ovarian cancer with recurrent pelvic ascites causing #2 and 3 with abdominal pain -CT-guided drainage with IR today -Gynecology oncology consultation appreciated -Consultation with oncology appreciated, patient is receiving chemotherapy as an outpatient 2. Right ureteral obstruction with moderate to severe right-sided hydronephrosis 3. Partial small bowel obstruction 4. Status post TRACY, BSO, omentectomy and splenectomy 5. UTI -Continue Rocephin IV, follow-up on urine culture 6. Leukocytosis likely secondary to be above Prophylaxis: SCDs Problems: Subjective 24 Hr Interval Summary Constitutional: no complaints Exam/Review of Systems Vital Signs Vitals Vital Signs Date Time Temp Pulse Resp B/P Pulse Ox O2 Delivery O2 Flow Rate FiO2 04/03/17 08:00 98.4 70 16 134/73 96 04/02/17 01:14 Room Air Intake and Output 04/02/17 04/02/17 04/03/17 15:00 23:00 07:00 Intake Total 750 ml 600 ml 1650 ml Output Total 600 ml Balance 750 ml 0 ml 1650 ml Exam Constitutional: alert Respiratory: clear to auscultation Cardiovascular: regular rate and rhythm Gastrointestinal: soft, No distended Musculoskeletal: nl extremities to inspection Results Result Diagram: 04/03/17 0436 04/03/17 0436 Results 24 hrs Laboratory Tests Test 04/03/17 04:36 White Blood Count 3.6 #L Red Blood Count 2.44 L Hemoglobin 7.8 L Hematocrit 23.9 L Mean Corpuscular Volume 98.0 Mean Corpuscular Hemoglobin 32.0 Mean Corpuscular Hemoglobin Concent 32.6 Red Cell Distribution Width 19.7 H Platelet Count 174 # Mean Platelet Volume 9.9 Neutrophils % 35.4 L Lymphocytes % 49.6 Monocytes % 14.1 H Eosinophils % 0.3 Basophils % 0.3 Nucleated Red Blood Cells % 1.1 H Neutrophils # (Manual) 1.3 L Lymphocytes # 1.8 Monocytes # 0.5 Eosinophils # 0.0 Basophils # 0.0 Nucleated Red Blood Cells # 0.0 Sodium Level 141 Potassium Level 3.2 L Chloride Level 99 Carbon Dioxide Level 29 Anion Gap 16 Blood Urea Nitrogen 11 Creatinine 0.60 Glucose Level 97 Calcium Level 8.4 Phosphorus Level 3.3 Magnesium Level 1.6 L CA 125 Antigen < 55.0 H Medications Medications Current Medications Dextrose/Sodium Chloride (D5-1/2ns) 1,000 ml @ 100 mls/hr Q10H IV Last administered on 04/03/17 08:49; Admin Dose 100 MLS/HR; Start 04/02/17 at 01:30 Famotidine (Pepcid Iv) 20 mg BID IV Last administered on 04/03/17 08:28; Admin Dose 20 MG; Start 04/02/17 at 09:00 Heparin Sodium (Porcine) (Heparin (5000 Units/0.5 ml)) 5,000 unit Q8 SC Last administered on 04/03/17 06:01; Admin Dose 5,000 UNIT; Start 04/02/17 at 06:00 Docusate Sodium (Colace) 100 mg BID PO Last administered on 04/02/17 20:42; Admin Dose 100 MG; Start 04/02/17 at 09:00 Morphine Sulfate (morphine) 3 mg Q4H PRN IV pain Last administered on 06:06; Admin Dose 3 MG; Start 04/02/17 at 01:30 Ondansetron HCl (Zofran Inj) 4 mg Q6H PRN IV NAUSEA AND/OR VOMITING Last administered on 04/03/17 08:45; Admin Dose 4 MG; Start 04/02/17 at 01:30 Acetaminophen 650 mg 650 mg Q6H PRN PO PAIN AND OR ELEVATED TEMP; Start at 01:30 Ceftriaxone Sodium 50 ml @ 100 mls/hr Q24H IVPB Last administered on 02:18; Admin Dose 100 MLS/HR; Start 04/02/17 at 02:00 Magnesium Sulfate/ Sodium Chloride (Magnesium Sulfate/NS) 106 ml @ 35.333 mls/ hr ONCE ONCE IVPB Last administered on 04/03/17 13:32; Admin Dose 35.333 MLS/ HR; Start 04/03/17 at 12:30; Stop 04/03/17 at 15:29 YVONNE BENSON Apr 03, 2017 14:35
[2017-04-03 19:51] VITALS: BP 127/73; RESP 20
--- NOTE | 2017-04-03 21:01 | PN ---
Date/Time of Note Date/Time of Note DATE: 04/03/17 TIME: 20:53 Assessment/Plan VTE Prophylaxis VTE Prophylaxis Intervention: SCD's Lines/Catheters IV Catheter Type (from Nrs): port Assessment/Plan Chief Complaint/Hosp Course Based on prior admission and current status likely pancreatic pseudocyst, lymphocyst or loculated ascites. Problems: Assessment/Plan A- awaiting drainage P- drainage today and re-eval Subjective 24 Hr Interval Summary Free Text/Dictation Feels the same awaits drainage Exam/Review of Systems Vital Signs Vitals Vital Signs Date Time Temp Pulse Resp B/P Pulse Ox O2 Delivery O2 Flow Rate FiO2 04/03/17 19:51 98.5 74 20 127/73 98 04/02/17 01:14 Room Air Intake and Output 04/02/17 04/02/17 04/03/17 15:00 23:00 07:00 Intake Total 750 ml 600 ml 1650 ml Output Total 600 ml Balance 750 ml 0 ml 1650 ml Exam Resp- clear CVS- NSR Abd- mildly distended and tender Ext - NT' no edema Results Result Diagram: 04/03/17 0436 04/03/17 0436 Results 24 hrs Laboratory Tests Test 04/03/17 04:36 White Blood Count 3.6 #L Red Blood Count 2.44 L Hemoglobin 7.8 L Hematocrit 23.9 L Mean Corpuscular Volume 98.0 Mean Corpuscular Hemoglobin 32.0 Mean Corpuscular Hemoglobin Concent 32.6 Red Cell Distribution Width 19.7 H Platelet Count 174 # Mean Platelet Volume 9.9 Neutrophils % 35.4 L Lymphocytes % 49.6 Monocytes % 14.1 H Eosinophils % 0.3 Basophils % 0.3 Nucleated Red Blood Cells % 1.1 H Neutrophils # (Manual) 1.3 L Lymphocytes # 1.8 Monocytes # 0.5 Eosinophils # 0.0 Basophils # 0.0 Nucleated Red Blood Cells # 0.0 Sodium Level 141 Potassium Level 3.2 L Chloride Level 99 Carbon Dioxide Level 29 Anion Gap 16 Blood Urea Nitrogen 11 Creatinine 0.60 Glucose Level 97 Calcium Level 8.4 Phosphorus Level 3.3 Magnesium Level 1.6 L CA 125 Antigen < 55.0 H Medications Medications Current Medications Dextrose/Sodium Chloride (D5-1/2ns) 1,000 ml @ 100 mls/hr Q10H IV Last administered on 04/03/17t 08:49; Admin Dose 100 MLS/HR; Start 04/02/17 at 01:30 Famotidine (Pepcid Iv) 20 mg BID IV Last administered on 04/03/17 20:22; Admin Dose 20 MG; Start 04/02/17 at 09:00 Heparin Sodium (Porcine) (Heparin (5000 Units/0.5 ml)) 5,000 unit Q8 SC Last administered on 04/03/17 06:01; Admin Dose 5,000 UNIT; Start 04/02/17 at 06:00 Docusate Sodium (Colace) 100 mg BID PO Last administered on 04/03/17 20:22; Admin Dose 100 MG; Start 04/02/17 at 09:00 Morphine Sulfate (morphine) 3 mg Q4H PRN IV pain Last administered on 20:23; Admin Dose 3 MG; Start 04/02/17 at 01:30 Ondansetron HCl (Zofran Inj) 4 mg Q6H PRN IV NAUSEA AND/OR VOMITING Last administered on 04/03/17 08:45; Admin Dose 4 MG; Start 04/02/17 at 01:30 Acetaminophen 650 mg 650 mg Q6H PRN PO PAIN AND OR ELEVATED TEMP Last administered on 04/03/17 18:44; Admin Dose 650 MG; Start 04/02/17 at 01:30 Ceftriaxone Sodium (Rocephin) 50 ml @ 100 mls/hr Q24H IVPB Last administered on 04/03/17 02:18; Admin Dose 100 MLS/HR; Start 04/02/17 at 02:00 DILLON MARTÍNEZ MD Apr 03, 2017 21:01
[2017-04-04] MEDS: DEXTROSE 5%-0.45% NACL 1,000 ML IV SCH ×4 (00:19→22:50)
[2017-04-04] MEDS: CEFTRIAXONE 1 GM/50 ML (PMX) 50 ML IVPB SCH (02:39)
[2017-04-04 04:14] VITALS: BP 97/57; RESP 20
[2017-04-04] MEDS: HEPARIN 5,000 UNIT/0.5 ML VIAL SC SCH ×3 (05:28→21:40)
[2017-04-04 06:32] LABS: ABNORMAL IP MESSAGE 1; HEMATOCRIT 22.7 % (37.0-47.0); HEMOGLOBIN 7.4 g/dl (12.0-16.0); MEAN CORPUSCULAR HGB CONC 32.6 g/dl (32.0-37.0); MEAN CORPUSCULAR VOLUME 98.3 fl (82.0-101.0); MEAN PLATELET VOLUME 10.1 fl (7.4-10.4); PLATELET COUNT 132 10^3/UL (140-415); RED BLOOD COUNT 2.31 10^6/ul (4.20-5.40); RED CELL DISTRIBUTION WIDTH 19.4 % (11.5-14.5); WHITE BLOOD COUNT 2.6 10^3/ul (4.8-10.8)
[2017-04-04 06:41] LABS: POSITIVE DIFF @See below
[2017-04-04 07:00] VITALS: BP 100/57; RESP 18
[2017-04-04 07:00] LABS: CALCIUM 8.1 mg/dl (8.4-10.2); CREATININE 0.58 mg/dl (0.44-1.00); POTASSIUM 3.5 mmol/L (3.5-5.1)
[2017-04-04 09:21] LABS: ANISOCYTOSIS 1+ (0-0); BASOPHILS % (M) 1 % (0-2); ERYTHROBLAST% (NRBC) (M) 1 % (0-0); GIANT THROMBO% (M) 1 % (0-0); MICROCYTOSIS 1+ (0-0); MONOCYTES % (M) 10 % (0-11); OVALOCYTES 1+ (0-0); PLATELET ESTIMATE DECREASED; POIKILOCYTOSIS 1+ (0-0); POLYCHROMASIA 1+ (0-0)
[2017-04-04] MEDS: FAMOTIDINE 20 MG INJ IV SCH (09:51)
[2017-04-04] MEDS: DOCUSATE SODIUM 100 MG CAP PO SCH ×2 (09:51→21:38)
[2017-04-04 14:00] VITALS: BP 152/72; RESP 20
--- NOTE | 2017-04-04 15:37 | PN ---
Date/Time of Note Date/Time of Note DATE: 04/04/17 TIME: 15:35 Assessment/Plan VTE Prophylaxis VTE Prophylaxis Intervention: SCD's Lines/Catheters Urinary Cath still in place: No Assessment/Plan Chief Complaint/Hosp Course 1. History of ovarian cancer with recurrent pelvic ascites causing #2 and 3 with abdominal pain -s/p CT-guided drainage with IR, continue drainage -Gynecology oncology consultation appreciated -Consultation with oncology appreciated, patient is receiving chemotherapy as an outpatient 2. Right ureteral obstruction with moderate to severe right-sided hydronephrosis 3. Partial small bowel obstruction 4. Status post TRACY, BSO, omentectomy and splenectomy 5. UTI -Continue Rocephin IV, follow-up on urine culture 6. Leukocytosis likely secondary to be above Prophylaxis: SCDs Problems: Subjective 24 Hr Interval Summary Constitutional: no complaints Exam/Review of Systems Vital Signs Vitals Vital Signs Date Time Temp Pulse Resp B/P Pulse Ox O2 Delivery O2 Flow Rate FiO2 04/04/17 14:00 98.7 67 20 152/72 100 04/02/17 01:14 Room Air Intake and Output 04/03/17 04/03/17 04/04/17 15:00 23:00 07:00 Intake Total 600 ml 1460 ml 900 ml Output Total 1500 ml Balance 600 ml -40 ml 900 ml Exam Constitutional: alert, oriented Respiratory: clear to auscultation Cardiovascular: regular rate and rhythm Gastrointestinal: soft, No distended Musculoskeletal: nl extremities to inspection Results Result Diagram: 04/04/17 0525 04/04/17 0525 Results 24 hrs Laboratory Tests Test 04/04/17 05:25 White Blood Count 2.6 #L Red Blood Count 2.31 L Hemoglobin 7.4 L Hematocrit 22.7 L Mean Corpuscular Volume 98.3 Mean Corpuscular Hemoglobin 32.0 Mean Corpuscular Hemoglobin Concent 32.6 Red Cell Distribution Width 19.4 H Platelet Count 132 #L Mean Platelet Volume 10.1 Neutrophils % Segmented Neutrophils % (Manual) 33 L Lymphocytes % Lymphocytes % (Manual) 56 H Monocytes % Monocytes % (Manual) 10 Eosinophils % Basophils % Basophils % (Manual) 1 Nucleated Red Blood Cells % 1 H Neutrophils # (Manual) Absolute Lymphocytes (Manual) 1.4 Lymphocytes # Monocytes # Absolute Monocytes (Manual) 0.2 L Eosinophils # Basophils # Basophils # (Manual) 0.0 Nucleated Red Blood Cells # Thrombocytosis 1 H Platelet Estimate DECREASED Polychromasia 1+ Poikilocytosis 1+ Anisocytosis 1+ Microcytosis 1+ Macrocytosis 1+ Ovalocytes 1+ Sodium Level 140 Potassium Level 3.5 Chloride Level 101 Carbon Dioxide Level 29 Anion Gap 14 Blood Urea Nitrogen 10 Creatinine 0.58 Glucose Level 94 Calcium Level 8.1 L Magnesium Level 1.6 L Medications Medications Current Medications Dextrose/Sodium Chloride (D5-1/2ns) 1,000 ml @ 100 mls/hr Q10H IV Last administered on 04/04/17 13:35; Admin Dose 100 MLS/HR; Start 04/02/17 at 01:30 Famotidine (Pepcid Iv) 20 mg BID IV Last administered on 04/04/17 09:51; Admin Dose 20 MG; Start 04/02/17 at 09:00 Heparin Sodium (Porcine) (Heparin (5000 Units/0.5 ml)) 5,000 unit Q8 SC Last administered on 04/04/17 05:28; Admin Dose 5,000 UNIT; Start 04/02/17 at 06:00 Docusate Sodium (Colace) 100 mg BID PO Last administered on 04/04/17 09:51; Admin Dose 100 MG; Start 04/02/17 at 09:00 Morphine Sulfate (morphine) 3 mg Q4H PRN IV pain Last administered on 20:23; Admin Dose 3 MG; Start 04/02/17 at 01:30 Ondansetron HCl (Zofran Inj) 4 mg Q6H PRN IV NAUSEA AND/OR VOMITING Last administered on 04/03/17 08:45; Admin Dose 4 MG; Start 04/02/17 at 01:30 Acetaminophen 650 mg 650 mg Q6H PRN PO PAIN AND OR ELEVATED TEMP Last administered on 04/03/17 18:44; Admin Dose 650 MG; Start 04/02/17 at 01:30 Ceftriaxone Sodium (Rocephin) 50 ml @ 100 mls/hr Q24H IVPB Last administered on 04/04/17 02:39; Admin Dose 100 MLS/HR; Start 04/02/17 at 02:00 YVONNE BENSON Apr 04, 2017 15:37
[2017-04-04] MEDS ORDERED: MAGNESIUM SULFATE 4 GM/100 ML 100 ML IVPB ONE (17:00)
[2017-04-04 20:06] VITALS: BP 125/67; RESP 18
[2017-04-04] MEDS: morphine 4 MG/ML VIAL IV PRN (21:38)
[2017-04-04] MEDS: FAMOTIDINE 20 MG TAB PO SCH (21:38)
--- NOTE | 2017-04-04 23:16 | CONS ---
Date/Time of Note Date/Time of Note DATE: 04/04/17 TIME: 23:06 Assessment/Plan Assessment/Plan Chief Complaint/Hosp Course 56 yo female with malignant ascites who has since been diagnosed with FIGO stage III ovarian cancer. Pt is currently on chemotherapy, cycle 1 day 8 was given on 03/29. Pt now presents with abdominal pain and was found with a large fluid collection. #Loculated abdominal fluid - larger than on last admission, measuring up to 22. cm -s/p IR guided drainage -cytology, culture, other studies ordered. will followup -defer to surgery for management of fluid collection #STAGE IIIC ovarian ca -pt appears to be stable to receive chemotherapy -pt is due for her cycle 4 day 15 dose of Taxol 80mg/m2 #Anemia -2/2 chemo -2 units of PRBCs ordered #Leukopenia -2/2 to chemotherapy -ANC is roughly 1400. ok to give next dose of single agent Taxol Approximately 40 min were spent at patient's bedside and in coordination of her care Problems: (1) Disseminated ovarian cancer Qualifiers: Laterality: unspecified laterality Qualified Code: C56.9 - Disseminated malignant neoplasm of ovary, unspecified laterality Consultation Date/Type/Reason Admit Date/Time Apr 01, 2017 at 22:47 Initial Consult Date 04/02/17 Type of Consultation: Oncology Reason for Consultation ovarian cancer, currently undergoing chemotherapy Referring Provider: YVONNE BENSON 24 HR Interval Summary Free Text/Dictation pt is s/p CT guided abdominal and pelvic fluid collection drainage. Pt states her abdominal pain has somewhat improved Exam/Review of Systems Vital Signs Vitals Vital Signs Date Time Temp Pulse Resp B/P Pulse Ox O2 Delivery O2 Flow Rate FiO2 04/04/17 20:06 98.0 76 18 125/67 97 04/02/17 01:14 Room Air Intake and Output 04/03/17 04/03/17 04/04/17 15:00 23:00 07:00 Intake Total 600 ml 1460 ml 900 ml Output Total 1500 ml Balance 600 ml -40 ml 900 ml Exam Constitutional: alert, oriented Psych: no complaints Head: normocephalic Eyes: nl conjunctiva ENMT: nl external ears & nose Neck: non-tender, supple Respiratory: clear to auscultation, normal air movement Cardiovascular: regular rate and rhythm Gastrointestinal: soft Musculoskeletal: nl extremities to inspection Results Result Diagram: 04/04/17 0525 04/04/17 0525 Results 24 hrs Laboratory Tests Test 04/04/17 05:25 White Blood Count 2.6 #L Red Blood Count 2.31 L Hemoglobin 7.4 L Hematocrit 22.7 L Mean Corpuscular Volume 98.3 Mean Corpuscular Hemoglobin 32.0 Mean Corpuscular Hemoglobin Concent 32.6 Red Cell Distribution Width 19.4 H Platelet Count 132 #L Mean Platelet Volume 10.1 Neutrophils % Segmented Neutrophils % (Manual) 33 L Lymphocytes % Lymphocytes % (Manual) 56 H Monocytes % Monocytes % (Manual) 10 Eosinophils % Basophils % Basophils % (Manual) 1 Nucleated Red Blood Cells % 1 H Neutrophils # (Manual) Absolute Lymphocytes (Manual) 1.4 Lymphocytes # Monocytes # Absolute Monocytes (Manual) 0.2 L Eosinophils # Basophils # Basophils # (Manual) 0.0 Nucleated Red Blood Cells # Thrombocytosis 1 H Platelet Estimate DECREASED Polychromasia 1+ Poikilocytosis 1+ Anisocytosis 1+ Microcytosis 1+ Macrocytosis 1+ Ovalocytes 1+ Sodium Level 140 Potassium Level 3.5 Chloride Level 101 Carbon Dioxide Level 29 Anion Gap 14 Blood Urea Nitrogen 10 Creatinine 0.58 Glucose Level 94 Calcium Level 8.1 L Magnesium Level 1.6 L Medications Medications Current Medications Dextrose/Sodium Chloride (D5-1/2ns) 1,000 ml @ 100 mls/hr Q10H IV Last administered on 04/04/17 13:35; Admin Dose 100 MLS/HR; Start 04/02/17 at 01:30 Heparin Sodium (Porcine) (Heparin (5000 Units/0.5 ml)) 5,000 unit Q8 SC Last administered on 04/04/17 21:40; Admin Dose 5,000 UNIT; Start 04/02/17 at 06:00 Docusate Sodium (Colace) 100 mg BID PO Last administered on 04/04/17 21:38; Admin Dose 100 MG; Start 04/02/17 at 09:00 Morphine Sulfate (morphine) 3 mg Q4H PRN IV pain Last administered on 21:38; Admin Dose 3 MG; Start 04/02/17 at 01:30 Ondansetron HCl (Zofran Inj) 4 mg Q6H PRN IV NAUSEA AND/OR VOMITING Last administered on 04/03/17 08:45; Admin Dose 4 MG; Start 04/02/17 at 01:30 Acetaminophen 650 mg 650 mg Q6H PRN PO PAIN AND OR ELEVATED TEMP Last administered on 04/03/17 18:44; Admin Dose 650 MG; Start 04/02/17 at 01:30 Ceftriaxone Sodium (Rocephin) 50 ml @ 100 mls/hr Q24H IVPB Last administered on 04/04/17 02:39; Admin Dose 100 MLS/HR; Start 04/02/17 at 02:00 Famotidine (Pepcid) 20 mg BID PO Last administered on 04/04/17 21:38; Admin Dose 20 MG; Start 04/04/17 at 21:00 FLORINDA COATES M.D. Apr 04, 2017 23:15
[2017-04-05] VITALS (9 sets, daily range): BP systolic 123–145; BP diastolic 61–82; PULSE 69–80; RESP 14–19
[2017-04-05] MEDS: CEFTRIAXONE 1 GM/50 ML (PMX) 50 ML IVPB SCH (01:29)
[2017-04-05] MEDS: HEPARIN 5,000 UNIT/0.5 ML VIAL SC SCH ×3 (05:16→23:10)
[2017-04-05 05:51] LABS: ABNORMAL IP MESSAGE 1; BASOPHILS % 0.2 % (0.0-2.0); EOSINOPHILS % 0.2 % (0.0-7.0); HEMATOCRIT 22.5 % (37.0-47.0); HEMOGLOBIN 7.5 g/dl (12.0-16.0); LYMPHOCYTES # 2.6 10^3/ul (0.8-2.9); LYMPHOCYTES % 60.3 % (15.0-51.0); MEAN CORPUSCULAR HEMOGLOBIN 31.8 pg (29.0-33.0); MEAN CORPUSCULAR HGB CONC 33.3 g/dl (32.0-37.0); MEAN CORPUSCULAR VOLUME 95.3 fl (82.0-101.0); MEAN PLATELET VOLUME 10.7 fl (7.4-10.4); MONOCYTE # 0.8 10^3/ul (0.3-0.9); MONOCYTES % 17.6 % (0.0-11.0); NEUTROPHILS % 21.5 % (39.0-77.0); NUCLEATED RED BLOOD CELLS% 0.5 /100WBC (0.0-0.0); PLATELET COUNT 113 10^3/UL (140-415); RED BLOOD COUNT 2.36 10^6/ul (4.20-5.40); RED CELL DISTRIBUTION WIDTH 19.3 % (11.5-14.5); WHITE BLOOD COUNT 4.3 10^3/ul (4.8-10.8)
[2017-04-05 05:57] LABS: POSITIVE DIFF @See below
[2017-04-05 06:11] LABS: CALCIUM 8.4 mg/dl (8.4-10.2); CREATININE 0.54 mg/dl (0.44-1.00); MAGNESIUM 1.9 mg/dl (1.7-2.5)
[2017-04-05] MEDS: FAMOTIDINE 20 MG TAB PO SCH ×2 (09:21→21:00)
[2017-04-05] MEDS: DOCUSATE SODIUM 100 MG CAP PO SCH ×2 (09:21→20:28)
[2017-04-05] MEDS: DEXTROSE 5%-0.45% NACL 500 ML IV SCH ×3 (10:36→19:52)
--- NOTE | 2017-04-05 11:27 | CONS ---
Date/Time of Note Date/Time of Note DATE: 04/05/17 TIME: 11:25 Assessment/Plan Assessment/Plan Chief Complaint/Hosp Course 56 yo female with malignant ascites who has since been diagnosed with FIGO stage III ovarian cancer. Pt is currently on chemotherapy, cycle 1 day 8 was given on 03/29. Pt now presents with abdominal pain and was found with a large fluid collection. #Loculated abdominal fluid - larger than on last admission, measuring up to 22. cm -s/p IR guided drainage . drain in place -cytology, culture, other studies ordered. will followup -defer to surgery for management of drain and when it can be discontinued #STAGE IIIC ovarian ca -pt appears to be stable to receive chemotherapy -pt is due for her cycle 4 day 15 dose of Taxol 80mg/m2. order written #Anemia -2/2 chemo -2 units of PRBCs ordered #Leukopenia -2/2 to chemotherapy -ANC is roughly 1400. ok to give next dose of single agent Taxol Approximately 40 min were spent at patient's bedside and in coordination of her care Problems: (1) Disseminated ovarian cancer Qualifiers: Laterality: unspecified laterality Qualified Code: C56.9 - Disseminated malignant neoplasm of ovary, unspecified laterality Problems: Consultation Date/Type/Reason Admit Date/Time Apr 01, 2017 at 22:47 Initial Consult Date 04/02/17 Type of Consultation: Oncology Reason for Consultation stage III ovarian ca Referring Provider: YVONNE BENSON 24 HR Interval Summary Free Text/Dictation still draining minimally from catheter. serosanguineous fluid Exam/Review of Systems Vital Signs Vitals Vital Signs Date Time Temp Pulse Resp B/P Pulse Ox O2 Delivery O2 Flow Rate FiO2 04/05/17 07:29 97.0 71 19 136/61 98 04/02/17 01:14 Room Air Intake and Output 04/04/17 04/04/17 04/05/17 15:00 23:00 07:00 Intake Total 1000 ml 1600 ml 2000 ml Output Total 1330 ml 1615 ml Balance 1000 ml 270 ml 385 ml Exam Constitutional: alert, oriented Psych: no complaints Head: normocephalic Eyes: nl conjunctiva ENMT: nl external ears & nose Neck: non-tender, supple Respiratory: clear to auscultation, normal air movement Cardiovascular: regular rate and rhythm Gastrointestinal: soft Musculoskeletal: nl extremities to inspection, nl gait and stance Extremities: normal pulses Results Result Diagram: 04/05/17 0440 04/05/17 0440 Results 24 hrs Laboratory Tests Test 04/05/17 04:40 White Blood Count 4.3 #L Red Blood Count 2.36 L Hemoglobin 7.5 L Hematocrit 22.5 L Mean Corpuscular Volume 95.3 Mean Corpuscular Hemoglobin 31.8 Mean Corpuscular Hemoglobin Concent 33.3 Red Cell Distribution Width 19.3 H Platelet Count 113 L Mean Platelet Volume 10.7 H Neutrophils % 21.5 L Lymphocytes % 60.3 H Monocytes % 17.6 H Eosinophils % 0.2 Basophils % 0.2 Nucleated Red Blood Cells % 0.5 H Neutrophils # (Manual) 0.9 L Lymphocytes # 2.6 Monocytes # 0.8 Eosinophils # 0.0 Basophils # 0.0 Nucleated Red Blood Cells # 0.0 Sodium Level 141 Potassium Level 3.0 L Chloride Level 99 Carbon Dioxide Level 30 Anion Gap 15 Blood Urea Nitrogen 6 L Creatinine 0.54 Glucose Level 98 Calcium Level 8.4 Magnesium Level 1.9 Medications Medications Current Medications Heparin Sodium (Porcine) (Heparin (5000 Units/0.5 ml)) 5,000 unit Q8 SC Last administered on 04/04/17 21:40; Admin Dose 5,000 UNIT; Start 04/02/17 at 06:00 Docusate Sodium (Colace) 100 mg BID PO Last administered on 04/05/17 09:21; Admin Dose 100 MG; Start 04/02/17 at 09:00 Morphine Sulfate (morphine) 3 mg Q4H PRN IV pain Last administered on 21:38; Admin Dose 3 MG; Start 04/02/17 at 01:30 Ondansetron HCl (Zofran Inj) 4 mg Q6H PRN IV NAUSEA AND/OR VOMITING Last administered on 04/03/17 08:45; Admin Dose 4 MG; Start 04/02/17 at 01:30 Acetaminophen 650 mg 650 mg Q6H PRN PO PAIN AND OR ELEVATED TEMP Last administered on 04/03/17 18:44; Admin Dose 650 MG; Start 04/02/17 at 01:30 Ceftriaxone Sodium (Rocephin) 50 ml @ 100 mls/hr Q24H IVPB Last administered on 04/05/17 01:29; Admin Dose 100 MLS/HR; Start 04/02/17 at 02:00 Famotidine (Pepcid) 20 mg BID PO Last administered on 04/05/17 09:21; Admin Dose 20 MG; Start 04/04/17 at 21:00 Simethicone 80 mg 80 mg Q6H PRN PO DISTENSION/GAS/BLOATING Last administered on 04/05/17 09:28; Admin Dose 80 MG; Start 04/05/17 at 01:00 Dextrose/Sodium Chloride (D5-1/2ns) 500 ml @ 100 mls/hr Q5H IV Last administered on 04/05/17 10:36; Admin Dose 100 MLS/HR; Start 04/05/17 at 09:52 Potassium Chloride (Klor-Con 20) 40 meq Q4H PO ; Start 04/05/17 at 11:30; Stop 04/05/17 at 15:31 FLORINDA COATES M.D. Apr 05, 2017 11:27
[2017-04-05] MEDS: POTASSIUM CHLORIDE (SR) 20 MEQ TAB PO SCH ×2 (12:01→16:23)
--- NOTE | 2017-04-05 15:24 | CONS ---
Date/Time of Note Date/Time of Note DATE: 04/05/17 TIME: 15:20 Assessment/Plan Assessment/Plan Additional Assessment/Plan Stage IIIc ovarian cancer IR guided drainage of intra-abdominal fluid Pain is controlled She is very comfortable at this time and is not requiring higher doses of opioids. Family pleasant smiling and laughing with me and telling jokes. Consultation Date/Type/Reason Admit Date/Time Apr 01, 2017 at 22:47 Initial Consult Date 04/02/17 Type of Consultation: Pain management Referring Provider: YVONNE BENSON Exam/Review of Systems Vital Signs Vitals Vital Signs Date Time Temp Pulse Resp B/P Pulse Ox O2 Delivery O2 Flow Rate FiO2 04/05/17 14:51 98.0 81 19 138/63 97 04/02/17 01:14 Room Air Intake and Output 04/04/17 04/04/17 04/05/17 15:00 23:00 07:00 Intake Total 1000 ml 1600 ml 2000 ml Output Total 1330 ml 1615 ml Balance 1000 ml 270 ml 385 ml Exam Constitutional: alert, oriented, well developed Psych: nl mood/affect, no complaints Neck: non-tender, supple Respiratory: clear to auscultation, normal air movement, No congested cough, No crackles/rales, No diminished breath sounds, No intercostal retraction, No labored breathing, No other, No respirations, No tactile fremitus, No wheezing Cardiovascular: nl pulses, regular rate and rhythm, No S3, No S4, No bruits, No diastolic murmur, No edema, No gallop, No irregular rhythm, No jugular venous distention (JVD), No murmurs/extra sounds, No other, No rub, No systolic murmur Extremities: No calf tenderness, No clubbing, No cyanosis, No edema, No normal pulses, No other, No palpable cord, No pitting pedal edema, No tenderness Neurological: FUNCTIONAL MANAGER II-XII intact, nl mental status, nl speech, nl strength, No DTR's symmetric, No confused, No focal weakness, No lethargic, No numbness , No other, No reflexes, No unresponsive Results Result Diagram: 04/05/170 04/05/17439 Results 24 hrs Laboratory Tests Test 04/05/17 04:40 White Blood Count 4.3 #L Red Blood Count 2.36 L Hemoglobin 7.5 L Hematocrit 22.5 L Mean Corpuscular Volume 95.3 Mean Corpuscular Hemoglobin 31.8 Mean Corpuscular Hemoglobin Concent 33.3 Red Cell Distribution Width 19.3 H Platelet Count 113 L Mean Platelet Volume 10.7 H Neutrophils % 21.5 L Lymphocytes % 60.3 H Monocytes % 17.6 H Eosinophils % 0.2 Basophils % 0.2 Nucleated Red Blood Cells % 0.5 H Neutrophils # (Manual) 0.9 L Lymphocytes # 2.6 Monocytes # 0.8 Eosinophils # 0.0 Basophils # 0.0 Nucleated Red Blood Cells # 0.0 Sodium Level 141 Potassium Level 3.0 L Chloride Level 99 Carbon Dioxide Level 30 Anion Gap 15 Blood Urea Nitrogen 6 L Creatinine 0.54 Glucose Level 98 Calcium Level 8.4 Magnesium Level 1.9 Medications Medications Current Medications Heparin Sodium (Porcine) (Heparin (5000 Units/0.5 ml)) 5,000 unit Q8 SC Last administered on 04/05/17 14:08; Admin Dose 5,000 UNIT; Start 04/02/17 at 06:00 Docusate Sodium (Colace) 100 mg BID PO Last administered on 04/05/17 09:21; Admin Dose 100 MG; Start 04/02/17 at 09:00 Morphine Sulfate (morphine) 3 mg Q4H PRN IV pain Last administered on 21:38; Admin Dose 3 MG; Start 04/02/17 at 01:30 Ondansetron HCl (Zofran Inj) 4 mg Q6H PRN IV NAUSEA AND/OR VOMITING Last administered on 04/03/17 08:45; Admin Dose 4 MG; Start 04/02/17 at 01:30 Acetaminophen 650 mg 650 mg Q6H PRN PO PAIN AND OR ELEVATED TEMP Last administered on 04/03/17 18:44; Admin Dose 650 MG; Start 04/02/17 at 01:30 Ceftriaxone Sodium (Rocephin) 50 ml @ 100 mls/hr Q24H IVPB Last administered on 04/05/17 01:29; Admin Dose 100 MLS/HR; Start 04/02/17 at 02:00 Famotidine (Pepcid) 20 mg BID PO Last administered on 04/05/17 09:21; Admin Dose 20 MG; Start 04/04/17 at 21:00 Simethicone 80 mg 80 mg Q6H PRN PO DISTENSION/GAS/BLOATING Last administered on 04/05/17 09:28; Admin Dose 80 MG; Start 04/05/17 at 01:00 Dextrose/Sodium Chloride (D5-1/2ns) 500 ml @ 100 mls/hr Q5H IV Last administered on 04/05/17 10:36; Admin Dose 100 MLS/HR; Start 04/05/17 at 09:52 Potassium Chloride (Klor-Con 20) 40 meq Q4H PO Last administered on 04/05/17 12:01; Admin Dose 40 MEQ; Start 04/05/17 at 11:30; Stop 04/05/17 at 15:31 CARMINE LE Apr 05, 2017 15:24
--- NOTE | 2017-04-05 17:13 | PN ---
Date/Time of Note Date/Time of Note DATE: 04/05/17 TIME: 17:13 Assessment/Plan VTE Prophylaxis VTE Prophylaxis Intervention: SCD's Lines/Catheters IV Catheter Type (from [facility]): Portacath Urinary Cath still in place: No Assessment/Plan Chief Complaint/Hosp Course 1. History of ovarian cancer with recurrent pelvic ascites causing #2 and 3 with abdominal pain -s/p CT-guided drainage with IR, continue drainage -Gynecology oncology consultation appreciated -Consultation with oncology appreciated, patient is receiving chemotherapy as an outpatient -Chemotherapy planned for today 2. Right ureteral obstruction with moderate to severe right-sided hydronephrosis 3. Partial small bowel obstruction 4. Status post TRACY, BSO, omentectomy and splenectomy 5. UTI -Continue Rocephin IV, follow-up on urine culture 6. Leukocytosis likely secondary to be above Prophylaxis: SCDs Problems: Subjective 24 Hr Interval Summary Constitutional: no complaints Exam/Review of Systems Vital Signs Vitals Vital Signs Date Time Temp Pulse Resp B/P Pulse Ox O2 Delivery O2 Flow Rate FiO2 04/05/17 14:51 98.0 81 19 138/63 97 04/02/17 01:14 Room Air Intake and Output 04/04/17 04/04/17 04/05/17 15:00 23:00 07:00 Intake Total 1000 ml 1600 ml 2000 ml Output Total 1330 ml 1615 ml Balance 1000 ml 270 ml 385 ml Exam Constitutional: alert, oriented Respiratory: clear to auscultation Cardiovascular: regular rate and rhythm Gastrointestinal: soft, No distended Musculoskeletal: nl extremities to inspection Results Result Diagram: 04/05/17 0440 04/05/17 0440 Results 24 hrs Laboratory Tests Test 04/05/17 04:40 White Blood Count 4.3 #L Red Blood Count 2.36 L Hemoglobin 7.5 L Hematocrit 22.5 L Mean Corpuscular Volume 95.3 Mean Corpuscular Hemoglobin 31.8 Mean Corpuscular Hemoglobin Concent 33.3 Red Cell Distribution Width 19.3 H Platelet Count 113 L Mean Platelet Volume 10.7 H Neutrophils % 21.5 L Lymphocytes % 60.3 H Monocytes % 17.6 H Eosinophils % 0.2 Basophils % 0.2 Nucleated Red Blood Cells % 0.5 H Neutrophils # (Manual) 0.9 L Lymphocytes # 2.6 Monocytes # 0.8 Eosinophils # 0.0 Basophils # 0.0 Nucleated Red Blood Cells # 0.0 Sodium Level 141 Potassium Level 3.0 L Chloride Level 99 Carbon Dioxide Level 30 Anion Gap 15 Blood Urea Nitrogen 6 L Creatinine 0.54 Glucose Level 98 Calcium Level 8.4 Magnesium Level 1.9 Medications Medications Current Medications Heparin Sodium (Porcine) (Heparin (5000 Units/0.5 ml)) 5,000 unit Q8 SC Last administered on 04/05/17 14:08; Admin Dose 5,000 UNIT; Start 04/02/17 at 06:00 Docusate Sodium (Colace) 100 mg BID PO Last administered on 04/05/17 09:21; Admin Dose 100 MG; Start 04/02/17 at 09:00 Morphine Sulfate (morphine) 3 mg Q4H PRN IV pain Last administered on 21:38; Admin Dose 3 MG; Start 04/02/17 at 01:30 Ondansetron HCl (Zofran Inj) 4 mg Q6H PRN IV NAUSEA AND/OR VOMITING Last administered on 04/03/17 08:45; Admin Dose 4 MG; Start 04/02/17 at 01:30 Acetaminophen 650 mg 650 mg Q6H PRN PO PAIN AND OR ELEVATED TEMP Last administered on 04/03/17 18:44; Admin Dose 650 MG; Start 04/02/17 at 01:30 Ceftriaxone Sodium (Rocephin) 50 ml @ 100 mls/hr Q24H IVPB Last administered on 04/05/17 01:29; Admin Dose 100 MLS/HR; Start 04/02/17 at 02:00 Famotidine (Pepcid) 20 mg BID PO Last administered on 04/05/17 09:21; Admin Dose 20 MG; Start 04/04/17 at 21:00 Simethicone 80 mg 80 mg Q6H PRN PO DISTENSION/GAS/BLOATING Last administered on 04/05/17 09:28; Admin Dose 80 MG; Start 04/05/17 at 01:00 Dextrose/Sodium Chloride 500 ml @ 100 mls/hr Q5H IV Last administered on 10:36; Admin Dose 100 MLS/HR; Start 04/05/17 at 09:52 Sodium Chloride 1,000 ml @ 75 mls/hr [id number] IV ; Start 04/05/17 at 21:00; Stop 04/06/17 at 20:59 Ondansetron HCl/ Dexamethasone/ Sodium Chloride (Zofran Inj/ Decadron/NS) 59 ml @ 116 mls/hr ONCE IVPB ; Start 04/05/17 at 20:30; Stop 04/06/17 at 10:00 Famotidine (Pepcid Iv) 20 mg ONCE IV ; Start 04/05/17 at 20:30; Stop 04/06/17 at 10:00 Diphenhydramine HCl (Benadryl) 25 mg ONCE IV ; Start 04/05/17 at 20:30; Stop 04/06/17 at 10:00 Diphenhydramine HCl (Benadryl) 25 mg Q4H PRN IV ALLERGIC REACTION; Start at 21:00; Stop 04/06/17 at 20:59 Dexamethasone 10 mg 10 mg Q2H PRN IV ALLERGIC REACTION; Start 04/05/17 at 21:00 ; Stop 04/06/17 at 20:59 Paclitaxel/Sodium Chloride (taxOL/NS) 270.83 ml @ 135.415 mls/hr ONCE IV ; Start 04/05/17 at 21:00; Stop 04/06/17 at 20:59 YVONNE BENSON Apr 05, 2017 17:13
[2017-04-05] MEDS ORDERED: FAMOTIDINE 20 MG INJ IV SCH (20:30)
[2017-04-05] MEDS ORDERED: ONDANSETRON INJ 16 MG, DEXAMETHASONE 10 MG/ML 10 MG in SOD CHLORIDE 0.9% 50 ML IVPB SCH (20:30)
[2017-04-05] MEDS ORDERED: DIPHENHYDRAMINE 50 MG INJ IV SCH (20:30)
[2017-04-05] MEDS ORDERED: PACLITAXEL IV SCH (21:00)
[2017-04-05] MEDS ORDERED: DIPHENHYDRAMINE 50 MG INJ IV PRN (21:00)
[2017-04-05] MEDS ORDERED: SOD CHLORIDE 0.9% IV SCH (21:00)
[2017-04-05] MEDS ORDERED: SOD CHLORIDE 0.9% 1,000 ML IV SCH (21:00)
[2017-04-05] MEDS ORDERED: DEXAMETHASONE 10 MG/ML 1 ML INJ IV PRN (21:00)
[2017-04-06 00:50] VITALS: BP 120/70; PULSE 72; RESP 13
[2017-04-06] MEDS: DEXTROSE 5%-0.45% NACL 500 ML IV SCH ×2 (00:52→05:52)
[2017-04-06] MEDS: CEFTRIAXONE 1 GM/50 ML (PMX) 50 ML IVPB SCH (02:24)
[2017-04-06 05:22] LABS: ABNORMAL IP MESSAGE 1; HEMATOCRIT 33.5 % (37.0-47.0); HEMOGLOBIN 11.4 g/dl (12.0-16.0); MEAN CORPUSCULAR HEMOGLOBIN 31.3 pg (29.0-33.0); MEAN PLATELET VOLUME 10.2 fl (7.4-10.4); NUCLEATED RED BLOOD CELLS% 1.3 /100WBC (0.0-0.0); PLATELET COUNT 89 10^3/UL (140-415); RED BLOOD COUNT 3.64 10^6/ul (4.20-5.40); RED CELL DISTRIBUTION WIDTH 17.9 % (11.5-14.5); WHITE BLOOD COUNT 3.1 10^3/ul (4.8-10.8)
[2017-04-06 05:27] LABS: POSITIVE DIFF @See below
[2017-04-06 05:42] LABS: CALCIUM 8.9 mg/dl (8.4-10.2); CREATININE 0.59 mg/dl (0.44-1.00); POTASSIUM 4.4 mmol/L (3.5-5.1)
[2017-04-06] MEDS: HEPARIN 5,000 UNIT/0.5 ML VIAL SC SCH ×3 (05:47→21:31)
[2017-04-06 08:20] VITALS: BP 138/70; RESP 18
[2017-04-06] MEDS: DOCUSATE SODIUM 100 MG CAP PO SCH ×2 (08:50→21:25)
[2017-04-06] MEDS: FAMOTIDINE 20 MG TAB PO SCH ×2 (08:50→21:25)
--- NOTE | 2017-04-06 09:43 | CONS ---
Date/Time of Note Date/Time of Note DATE: 04/06/17 TIME: 09:41 Assessment/Plan Assessment/Plan Chief Complaint/Hosp Course 56 yo female with malignant ascites who has since been diagnosed with FIGO stage III ovarian cancer. Pt is currently on chemotherapy, Pt now presents with abdominal pain and was found with a large fluid collection. #Loculated abdominal fluid - larger than on last admission, measuring up to 22. cm -s/p IR guided drainage . drain in place -cytology, culture, other studies ordered. will followup -defer to surgery for management of drain and when it can be discontinued #STAGE IIIC ovarian ca -pt appears to be stable to receive chemotherapy -pt received her cycle 4 day 15 dose of Taxol 80mg/m2 yesterday #Anemia -2/2 chemo - s/p 2 units of PRBCs #Leukopenia -2/2 to chemotherapy -ANC is roughly 1400. ok to give next dose of single agent Taxol Approximately 40 min were spent at patient's bedside and in coordination of her care Problems: (1) Disseminated ovarian cancer Qualifiers: Laterality: unspecified laterality Qualified Code: C56.9 - Disseminated malignant neoplasm of ovary, unspecified laterality Problems: Problems: Consultation Date/Type/Reason Admit Date/Time Apr 01, 2017 at 22:47 Initial Consult Date 04/02/17 Type of Consultation: Oncology Reason for Consultation ovarian cancer Referring Provider: YVONNE BENSON 24 HR Interval Summary Free Text/Dictation pt received chemotherapy yesterday as well as blood transfusion Exam/Review of Systems Vital Signs Vitals Vital Signs Date Time Temp Pulse Resp B/P Pulse Ox O2 Delivery O2 Flow Rate FiO2 04/06/17 08:20 97.8 66 18 138/70 97 04/06/17 00:50 Room Air Intake and Output 04/05/17 04/05/17 04/06/17 15:00 23:00 07:00 Intake Total 250 ml 409 ml 1190.83 ml Output Total 1300 ml Balance 250 ml 409 ml -109.17 ml Exam Constitutional: alert, oriented Psych: no complaints Head: normocephalic Eyes: nl conjunctiva ENMT: nl external ears & nose, nl lips & teeth Neck: non-tender, supple Respiratory: clear to auscultation Cardiovascular: nl pulses, regular rate and rhythm Gastrointestinal: soft Musculoskeletal: nl extremities to inspection, nl gait and stance Results Result Diagram: 04/06/17 3470 04/06/17 0505 Results 24 hrs Laboratory Tests Test 04/06/17 05:05 04/06/17 07:35 White Blood Count 3.1 #L Red Blood Count 3.64 #L Hemoglobin 11.4 #L Hematocrit 33.5 #L Mean Corpuscular Volume 92.0 Mean Corpuscular Hemoglobin 31.3 Mean Corpuscular Hemoglobin Concent 34.0 Red Cell Distribution Width 17.9 H Platelet Count 89 #L Mean Platelet Volume 10.2 Neutrophils % Lymphocytes % Monocytes % Eosinophils % Basophils % Nucleated Red Blood Cells % 1.3 H Neutrophils # (Manual) 1.9 Lymphocytes # Monocytes # Eosinophils # Basophils # Nucleated Red Blood Cells # Sodium Level 141 Potassium Level 4.4 Chloride Level 107 Carbon Dioxide Level 27 Anion Gap 11 Blood Urea Nitrogen 8 Creatinine 0.59 Glucose Level 161 Calcium Level 8.9 Lab Scanned Report BLOOD TRANSFUSION Medications Medications Current Medications Heparin Sodium (Porcine) (Heparin (5000 Units/0.5 ml)) 5,000 unit Q8 SC Last administered on 04/06/17 05:47; Admin Dose 5,000 UNIT; Start 04/02/17 at 06:00 Docusate Sodium (Colace) 100 mg BID PO Last administered on 04/06/17 08:50; Admin Dose 100 MG; Start 04/02/17 at 09:00 Morphine Sulfate (morphine) 3 mg Q4H PRN IV pain Last administered on 21:38; Admin Dose 3 MG; Start 04/02/17 at 01:30 Ondansetron HCl (Zofran Inj) 4 mg Q6H PRN IV NAUSEA AND/OR VOMITING Last administered on 04/03/17 08:45; Admin Dose 4 MG; Start 04/02/17 at 01:30 Acetaminophen 650 mg 650 mg Q6H PRN PO PAIN AND OR ELEVATED TEMP Last administered on 04/03/17 18:44; Admin Dose 650 MG; Start 04/02/17 at 01:30 Ceftriaxone Sodium (Rocephin) 50 ml @ 100 mls/hr Q24H IVPB Last administered on 04/06/17 02:24; Admin Dose 100 MLS/HR; Start 04/02/17 at 02:00 Famotidine (Pepcid) 20 mg BID PO Last administered on 04/06/17 08:50; Admin Dose 20 MG; Start 04/04/17 at 21:00 Simethicone 80 mg 80 mg Q6H PRN PO DISTENSION/GAS/BLOATING Last administered on 04/05/17 09:28; Admin Dose 80 MG; Start 04/05/17 at 01:00 Dextrose/Sodium Chloride 500 ml @ 100 mls/hr Q5H IV Last administered on 10:36; Admin Dose 100 MLS/HR; Start 04/05/17 at 09:52 Sodium Chloride 1,000 ml @ 75 mls/hr [id number] IV Last administered on 22:39; Admin Dose 75 MLS/HR; Start 04/05/17 at 21:00; Stop 04/06/17 at 20:59 Ondansetron HCl/ Dexamethasone/ Sodium Chloride (Zofran Inj/ Decadron/NS) 59 ml @ 116 mls/hr ONCE IVPB Last administered on 04/05/17 22:09; Admin Dose 116 MLS/HR; Start 04/05/17 at 20:30; Stop 04/06/17 at 10:00 Famotidine (Pepcid Iv) 20 mg ONCE IV Last administered on 04/05/17 22:09; Admin Dose 20 MG; Start 04/05/17 at 20:30; Stop 04/06/17 at 10:00 Diphenhydramine HCl (Benadryl) 25 mg ONCE IV Last administered on 04/05/17 22: 09; Admin Dose 25 MG; Start 04/05/17 at 20:30; Stop 04/06/17 at 10:00 Diphenhydramine HCl (Benadryl) 25 mg Q4H PRN IV ALLERGIC REACTION; Start at 21:00; Stop 04/06/17 at 20:59 Dexamethasone 10 mg 10 mg Q2H PRN IV ALLERGIC REACTION; Start 04/05/17 at 21:00 ; Stop 04/06/17 at 20:59 Paclitaxel/Sodium Chloride (taxOL/NS) 270.83 ml @ 135.415 mls/hr ONCE IV Last administered on 04/05/17 22:46; Admin Dose 135.415 MLS/HR; Start 04/05/17 at 21 :00; Stop 9/1/17 at 20:59 FLORINDA COATES M.D. Apr 06, 2017 09:43
[2017-04-06 12:45] LABS: ANISOCYTOSIS 1+ (0-0); ERYTHROBLAST% (NRBC) (M) 5 % (0-0); GIANT THROMBO% (M) 1 % (0-0); METAMYELOCYTES %M 2 % (0-0); MONOCYTES % (M) 5 % (0-11); PLATELET ESTIMATE DECREASED; POIKILOCYTOSIS 3+ (0-0); POLYCHROMASIA 3+ (0-0); REACTIVE LYMPHOCYTES% (M) 8 % (0-0)
--- NOTE | 2017-04-06 13:49 | PN ---
Date/Time of Note Date/Time of Note DATE: 04/06/17 TIME: 13:46 Assessment/Plan VTE Prophylaxis VTE Prophylaxis Intervention: SCD's Lines/Catheters Urinary Cath still in place: No Assessment/Plan Chief Complaint/Hosp Course 1. History of ovarian cancer with recurrent pelvic ascites causing #2 and 3 with abdominal pain -s/p CT-guided drainage with IR, continue drainage defer to surgery in regards to drainage management -Gynecology oncology consultation appreciated -Consultation with oncology appreciated, patient is receiving chemotherapy as an outpatient -Chemotherapy per oncology 2. Right ureteral obstruction with moderate to severe right-sided hydronephrosis 3. Partial small bowel obstruction 4. Status post TRACY, BSO, omentectomy and splenectomy 5. UTI -Continue Rocephin IV, follow-up on urine culture 6. Leukocytosis likely secondary to be above Prophylaxis: SCDs Problems: Subjective 24 Hr Interval Summary Constitutional: no complaints Exam/Review of Systems Vital Signs Vitals Vital Signs Date Time Temp Pulse Resp B/P Pulse Ox O2 Delivery O2 Flow Rate FiO2 04/06/17 08:20 97.8 66 18 138/70 97 04/06/17 00:50 Room Air Intake and Output 04/05/17 04/05/17 04/06/17 15:00 23:00 07:00 Intake Total 250 ml 409 ml 1190.83 ml Output Total 1300 ml Balance 250 ml 409 ml -109.17 ml Exam Constitutional: alert, oriented Respiratory: clear to auscultation Cardiovascular: regular rate and rhythm Gastrointestinal: soft, No distended Musculoskeletal: nl extremities to inspection Results Result Diagram: 04/06/17 0505 04/06/17 0505 Results 24 hrs Laboratory Tests Test 04/06/17 05:05 04/06/17 07:35 White Blood Count 3.1 #L Red Blood Count 3.64 #L Hemoglobin 11.4 #L Hematocrit 33.5 #L Mean Corpuscular Volume 92.0 Mean Corpuscular Hemoglobin 31.3 Mean Corpuscular Hemoglobin Concent 34.0 Red Cell Distribution Width 17.9 H Platelet Count 89 #L Mean Platelet Volume 10.2 Neutrophils % Segmented Neutrophils % (Manual) 62 Band Neutrophils % (Manual) 5 H Lymphocytes % Lymphocytes % (Manual) 18 Reactive Lymphocytes % (Manual) 8 H Monocytes % Monocytes % (Manual) 5 Eosinophils % Basophils % Metamyelocytes % (manual) 2 H Nucleated Red Blood Cells % 5 H Neutrophils # (Manual) 1.9 Band Neutrophils # 0.1 Absolute Lymphocytes (Manual) 0.5 L Lymphocytes # Reactive Lymphocytes # 0.2 H Monocytes # Absolute Monocytes (Manual) 0.1 L Eosinophils # Basophils # Metamyelocytes # 0.0 Nucleated Red Blood Cells # Thrombocytosis 1 H Platelet Estimate DECREASED Polychromasia 3+ Poikilocytosis 3+ Anisocytosis 1+ Macrocytosis 1+ Sodium Level 141 Potassium Level 4.4 Chloride Level 107 Carbon Dioxide Level 27 Anion Gap 11 Blood Urea Nitrogen 8 Creatinine 0.59 Glucose Level 161 Calcium Level 8.9 Lab Scanned Report BLOOD TRANSFUSION Medications Medications Current Medications Heparin Sodium (Porcine) (Heparin (5000 Units/0.5 ml)) 5,000 unit Q8 SC Last administered on 04/06/17 05:47; Admin Dose 5,000 UNIT; Start 04/02/17 at 06:00 Docusate Sodium (Colace) 100 mg BID PO Last administered on 04/06/17 08:50; Admin Dose 100 MG; Start 04/02/17 at 09:00 Morphine Sulfate (morphine) 3 mg Q4H PRN IV pain Last administered on 21:38; Admin Dose 3 MG; Start 04/02/17 at 01:30 Ondansetron HCl (Zofran Inj) 4 mg Q6H PRN IV NAUSEA AND/OR VOMITING Last administered on 04/03/17 08:45; Admin Dose 4 MG; Start 04/02/17 at 01:30 Acetaminophen 650 mg 650 mg Q6H PRN PO PAIN AND OR ELEVATED TEMP Last administered on 04/03/17 18:44; Admin Dose 650 MG; Start 04/02/17 at 01:30 Ceftriaxone Sodium (Rocephin) 50 ml @ 100 mls/hr Q24H IVPB Last administered on 04/06/17 02:24; Admin Dose 100 MLS/HR; Start 04/02/17 at 02:00 Famotidine (Pepcid) 20 mg BID PO Last administered on 04/06/17 08:50; Admin Dose 20 MG; Start 04/04/17 at 21:00 Simethicone 80 mg 80 mg Q6H PRN PO DISTENSION/GAS/BLOATING Last administered on 04/05/17 09:28; Admin Dose 80 MG; Start 04/05/17 at 01:00 Dextrose/Sodium Chloride 500 ml @ 100 mls/hr Q5H IV Last administered on 10:36; Admin Dose 100 MLS/HR; Start 04/05/17 at 09:52 Sodium Chloride (NS) 1,000 ml @ 75 mls/hr [id number] IV Last administered on 04/05 22:39; Admin Dose 75 MLS/HR; Start 04/05/17 at 21:00; Stop 04/06/17 at 20: 59 Diphenhydramine HCl (Benadryl) 25 mg Q4H PRN IV ALLERGIC REACTION; Start at 21:00; Stop 04/06/17 at 20:59 Dexamethasone 10 mg 10 mg Q2H PRN IV ALLERGIC REACTION; Start 04/05/17 at 21:00 ; Stop 04/06/17 at 20:59 Paclitaxel/Sodium Chloride (taxOL/NS) 270.83 ml @ 135.415 mls/hr ONCE IV Last administered on 04/05/17 22:46; Admin Dose 135.415 MLS/HR; Start 04/05/17 at 21 :00; Stop 04/06/17 at 20:59 YVONNE BENSON Apr 06, 2017 13:49
[2017-04-06 14:59] VITALS: BP 138/83; RESP 18
[2017-04-06 19:27] VITALS: BP 144/73; RESP 18
[2017-04-06] MEDS: ZOLPIDEM 5 MG TAB PO PRN (22:19)
[2017-04-07] MEDS: CEFTRIAXONE 1 GM/50 ML (PMX) 50 ML IVPB SCH (01:23)
[2017-04-07] MEDS: ZOLPIDEM 5 MG TAB PO PRN (01:23)
[2017-04-07 02:00] VITALS: BP 135/65; RESP 18
[2017-04-07] MEDS: HEPARIN 5,000 UNIT/0.5 ML VIAL SC SCH ×2 (06:17→14:00)
[2017-04-07 07:29] VITALS: BP 112/62; RESP 18
[2017-04-07] MEDS: FAMOTIDINE 20 MG TAB PO SCH (09:36)
[2017-04-07] MEDS: DOCUSATE SODIUM 100 MG CAP PO SCH (09:36)
--- NOTE | 2017-04-07 12:39 | PDOCDIS ---
Discharge Instructions CONDITION Patient Condition: Good HOME CARE INSTRUCTIONS: Diet Instructions: Regular ACTIVITY: Activity Restrictions: No Restrictions FOLLOW UP/APPOINTMENTS Follow-up Plan Follow-up with Dr. Mansfield as scheduled and follow-up with your PCP 1-2 weeks YVONNE BENSON Apr 07, 2017 12:39
--- NOTE | 2017-04-07 12:45 | DS ---
Date/Time of Note Date/Time of Note DATE: 04/07/17 TIME: 12:40 Discharge Summary Admission/Discharge Info Admit Date/Time Apr 01, 2017 at 22:47 Discharge Date/Time April 07, 2017 Discharge Diagnosis 1. History of ovarian cancer with recurrent pelvic ascites causing #2 and 3 with abdominal pain -s/p CT-guided drainage with IR -Gynecology oncology consultation appreciated -Consultation with oncology appreciated, patient is receiving chemotherapy as an outpatient -Chemotherapy per oncology 2. Right ureteral obstruction with moderate to severe right-sided hydronephrosis 3. Partial small bowel obstruction 4. Status post TRACY, BSO, omentectomy and splenectomy 5. UTI -Status post Rocephin IV 9 6. Pancytopenia likely secondary to chemotherapy Patient Condition: Good Hospital Course Patient is a 56-year-old female who presents to emergency room today with a 3 day history of abdominal pain, nausea and vomiting that has been worsening in that time. She has a history of metastatic ovarian cancer and she is actively on chemotherapy. Her treatment course has been complicated by pelvic ascites as well as severe anemia. She has been admitted here a few times for different reasons and back in January she had interventional drainage of the ascites and the fluid was sent for cultures as well as cytology; both of which came back negative. She was discharged with a drain which was removed as an outpatient. Present this admission with abdominal pain with nausea vomiting and a CT scan of the abdomen is showing recollection of the pelvic fluid and is extended to the mid abdomen causing right ureteral obstruction as well as partial small bowel obstruction likely causing her symptoms. Patient had drainage placed with serosanguineous fluid having been drained for several days. Patient's drainage output decreased to below 50 cc and it was appropriate for drainage to be removed per surgery. Patient was seen by both her oncologist as well as gynecology oncology did receive chemotherapy while in-house. She does have a UA that suggested UTI with urine culture was negative. Patient did receive antibiotics while in-house. She did have pancytopenia thought to be secondary to chemotherapy. Patient is stable for DC and on day of discharge patient vitals, labs physical exam stable she had no further acute complaints questions were answered. Home Meds Reported Medications Meclizine Hcl* (Meclizine Hcl*) 25 Mg Tablet, 25 MG PO TID for NAUSEA, TAB 03/15/17 Docusate Sodium* (Colace*) 100 Mg Capsule, 100 MG PO DAILY for CONSTIPATION, # 30 CAP 03/15/17 Sennosides* (Senna Lax*) 8.6 Mg Tablet, 1 TAB PO BID for CONSTIPATION, TAB 03/15/17 Follow-up Plan Follow-up with oncology as scheduled, follow with PCP in 1-2 weeks Primary Care Provider [facility] Time spent on discharge: > 30 minutes YVONNE BENSON Apr 07, 2017 12:45
[2017-04-07 15:10] VITALS: BP 138/73; RESP 18
== END 2017-04-07 16:00 | disposition home or self-care (01) | DRG 809 ==
LOC: E/R 17:01 → MS1 22:47
PROVIDERS: ADMIT Family Medicine; ATTEND Family Medicine
PROC: 0W9G30Z Drainage of Peritoneal Cavity with Drainage Device, Percutaneous Approach (ICD-10-PCS; principal; 2017-04-03)
DX: D61.810 Antineoplastic chemotherapy induced pancytopenia (principal); C56.9 Malignant neoplasm of unspecified ovary; R18.0 Malignant ascites; K56.60 Unspecified intestinal obstruction; C79.9 Secondary malignant neoplasm of unspecified site; N13.1 Hydronephrosis with ureteral stricture, not elsewhere classified; N39.0 Urinary tract infection, site not specified; Z90.710 Acquired absence of both cervix and uterus; Z90.81 Acquired absence of spleen
CPT/HCPCS: 36430; 74176; 75989; 77012; 80048; 80053; 81001; 83690; 83735; 84100; 85025; 85610; 85730; 86304; 86644; 86850; 86900; 86901; 86920; 86945; 87070; 87075; 87086; 96374; 96375; J9267; J0696; J1100; J1200; J1644; J2270; J2405; J3010; J3475; J7030; J7042; J7050; P9016

== ENCOUNTER 2017-07-19 05:50 | Inpatient (IN) | END 2017-07-24 18:20 | disposition home or self-care (01) | DRG 749 ==

== ENCOUNTER 2017-09-19 14:22 | Inpatient (IN) | END 2017-09-21 17:33 | disposition home or self-care (01) | DRG 313 ==

== ENCOUNTER 2018-07-20 15:14 | Observation (INO) | END 2018-07-21 15:55 | disposition home or self-care (01) ==